=== PATIENT | female | born 1950 | race Caucasian/White ===

== ENCOUNTER 2023-04-07 13:34 | Inpatient (IN) | payer MEDICARE, SELFPAY ==
[2023-04-07] VITALS (23 sets, daily range): BP systolic 97–124; BP diastolic 62–98; PULSE 76–119; RESP 18–20; TEMP 36.4–36.5; O2SAT 86–100; BMI 60.3
--- NOTE | 2023-04-07 14:14 | CRLHL7_ITS ---
For Patients: As a result of the Century Cures Act, medical imaging exams and procedure reports are released immediately into your electronic medical record. You may view this report before your referring provider. If you have questions, please contact your health care provider. Indication: Hypoxia Technique: Chest 1 view Comparison: Chest x-ray 07/14/2019 Findings/Impression: Cardiovascular and mediastinum: Globular cardiomegaly with left-sided pacemaker with lead overlying the expected right ventricle. Atherosclerosis. Lungs and pleural space: Prominence of the pulmonary arteries with bilateral interstitial opacities suggestive of pulmonary edema. Trace retrocardiac density, possibly atelectasis. Trace left effusion not excluded. No pneumothorax. Bones and soft tissues: No acute findings. Dictated by Vern Valdes MD @ 04/07/2023 3:26:05 PM (Electronically Signed)
[2023-04-07 14:45] LABS: Lactate* 1.4 mmol/L (0.5-1.9)
[2023-04-07 14:56] LABS: Basophils Absolute Auto 0.02 K/uL (0.00-0.30); Basophils Percent Auto 0.2 % (0.0-3.0); Eosinophils Absolute Auto 0.15 K/uL (0.00-0.50); Eosinophils Percent Auto 1.5 % (0.0-7.0); Hematocrit 45.9 % (33.0-51.0); Hemoglobin* 14.7 gm/dL (12.0-16.0); Immature Granulocytes Abs Auto 0.02 K/uL (0.00-0.30); Immature Granulocytes Pct Auto 0.2 %; Lymphocytes Percent Auto 11.7 % (20-44); Mean Corpuscular HGB Conc 32 gm/dL (32-36); Mean Corpuscular Hemoglobin 31 pg (26-34); Mean Corpuscular Volume 96 fL (80-100); Monocytes Percent Auto 6.9 % (0.0-11.0); Neutrophils Percent Auto 79.5 % (42.0-72.0); Platelet Count* 272 K/uL (140-440); RDW Coefficient of Variation % 16.5 % (11.5-15.5); Red Blood Count 4.78 m/uL (4.00-5.20); White Blood Count* 9.78 K/uL (4.50-11.00)
[2023-04-07 15:01] LABS: Slide Review Reflex No
[2023-04-07 15:15] LABS: Troponin, Point-of-Care* 0.02 ng/ml (0.01-0.04)
[2023-04-07 15:18] LABS: D Dimer Quantitative* 1.08 ug/ml (0.00-0.50)
[2023-04-07 15:24] LABS: Albumin* 3.8 g/dL (3.3-5.0); Chloride* 102 mmol/L (96-114)
[2023-04-07 15:25] LABS: Potassium* 4.1 mmol/L (3.6-5.1); Sodium* 138 mmol/L (135-149)
[2023-04-07 15:27] LABS: Creatinine* 1.5 mg/dL (0.5-1.5); Estimated Glomerular Filt Rate 37 ml/min
[2023-04-07 15:28] LABS: Alanine Aminotransferase* 14 U/L (4-35); Alkaline Phosphatase* 111 U/L (40-150); Anion Gap 12 mEq/L (7-15); Aspartate Amino Transferase* 27 U/L (12-35); Bilirubin Direct* 0.1 mg/dL (0.0-0.5); Bilirubin Total* 1.1 mg/dL (0.1-1.5); Blood Urea Nitrogen* 23 mg/dL (7-30); Calcium* 8.5 mg/dL (8.4-10.6); Carbon Dioxide* 24 mmol/L (20-32); Glucose* 126 mg/dL (60-115); Total Protein* 7.1 g/dL (6.0-8.3)
[2023-04-07 15:37] LABS: NT Pro B Type NatriureticPept* 2090 pg/mL
[2023-04-07 15:48] LABS: INR 2.07 (0.91-1.10); Prothrombin Time 24.4 Seconds
--- NOTE | 2023-04-07 16:00 | ED_ITS ---
HPI - General Adult General Date Seen: 04/07/23 Chief complaint: Lower Extremity Swelling Stated complaint: Ill Time Seen by Provider: 04/07/23 14:06 Source: patient, EMS, RN notes reviewed and old records reviewed Mode of arrival: EMS Limitations: no limitations History of Present Illness HPI narrative: Patient is a 72-year-old woman who comes in by EMS. She says she called EMS today because of worsening swelling in her legs and severe pain in her feet limiting her ability to get around. She says that she lives independently at a senior apartment. She had for a while a lymphedema service coming in to help wrap her legs and she was keeping them elevated in bed. However, she says that that service is no longer coming as of right now, and her legs have gotten so bad that she was no longer able to lift them into bed because they were so heavy. As a result, she has been sleeping her recliner and putting her feet up that way. However a couple of days ago her recliner broke and she can no longer put the feet up. She does not complain of significant shortness of breath although she was noted to be hypoxic on arrival. She has not had chest pain or fevers. She has not noted any specific redness on her legs although it is difficult for her to see. Related Data Home Medications Medication Instructions Recorded Confirmed acetaminophen 500 mg tablet 1,000 mg PO Q6H PRN 04/07/23 04/07/23 (Tylenol Extra Strength) albuterol sulfate 90 mcg/actuation 2 puff inhalation Q4H PRN dyspnea 04/07/23 04/07/23 aerosol inhaler aspirin 81 mg tablet,delayed 81 mg PO DAILY 04/07/23 04/07/23 release (Adult Aspirin Regimen) atorvastatin 80 mg tablet 80 mg PO HS 04/07/23 04/07/23 bumetanide 1 mg tablet 3 mg PO DAILY 04/07/23 04/07/23 calcium citrate 315 mg-vitamin D3 1 tab PO DAILY 04/07/23 04/07/23 5 mcg (200 unit) tablet (Calcium Citrate + D) cholecalciferol (vitamin D3) 25 25 mcg PO DAILY 04/07/23 04/07/23 mcg (1,000 unit) capsule diltiazem HCl 240 mg 240 mg PO DAILY 04/07/23 04/07/23 capsule,extended release 24 hr empagliflozin 10 mg tablet 10 mg PO DAILY 04/07/23 04/07/23 (Jardiance) gabapentin 300 mg capsule 600 mg PO BID 04/07/23 04/07/23 insulin glargine 100 unit/mL (3 25 unit subcut DAILY 04/07/23 04/07/23 mL) subcutaneous pen (Lantus Solostar U-100 Insulin) metoprolol succinate 200 mg 200 mg PO DAILY 04/07/23 04/07/23 tablet,extended release 24 hr potassium chloride 20 mEq 20 meq PO DAILY 04/07/23 04/07/23 tablet,extended release warfarin 2.5 mg tablet 2.5 mg PO QPM 04/07/23 04/07/23 Allergies Allergy/AdvReac Type Severity Reaction Status Date / Time No Known Drug Allergies Allergy Verified 04/07/23 13:47 Review of Systems Status of ROS: Reports: 10 or more systems reviewed and unremarkable except as noted in History and below [facility] Medical History (Updated 04/12/23 @ 15:17 by Vickei Greenwood MD) Urinary incontinence ?R32 - Unspecified urinary incontinence (ICD-10) Chronic obstructive pulmonary disease ?J44.9 - Chronic obstructive pulmonary disease, unspecified (ICD-10) Physical deconditioning ?R53.81 - Other malaise (ICD-10) Physical debility ?R53.81 - Other malaise (ICD-10) Major depressive disorder ?F32.9 - Major depressive disorder, single episode, unspecified (ICD-10) Diabetic peripheral neuropathy associated with type 2 diabetes mellitus ?E11.42 - Type 2 diabetes mellitus with diabetic polyneuropathy (ICD-10) Chronic kidney disease, stage III (moderate) ?N18.30 - Chronic kidney disease, stage 3 unspecified (ICD-10) Migraine ?G43.909 - Migraine, unspecified, not intractable, without status migrainosus (ICD-10) Vitamin D deficiency ?E55.9 - Vitamin D deficiency, unspecified (ICD-10) History of rectal bleeding ?Z87.19 - Personal history of other diseases of the digestive system (ICD-10) Allergic rhinitis ?J30.9 - Allergic rhinitis, unspecified (ICD-10) Tobacco dependence ?F17.200 - Nicotine dependence, unspecified, uncomplicated (ICD-10) Morbid obesity with BMI of 50.0-59.9, adult ?E66.01 - Morbid (severe) obesity due to excess calories (ICD-10) ?Z68.43 - Body mass index [BMI] 50.0-59.9, adult (ICD-10) Chronic acquired lymphedema ?I89.0 - Lymphedema, not elsewhere classified (ICD-10) Obstructive sleep apnea on CPAP ?G47.33 - Obstructive sleep apnea (adult) (pediatric) (ICD-10) Anticoagulation goal of INR 2 to 3 ?Z51.81 - Encounter for therapeutic drug level monitoring (ICD-10) ?Z79.01 - longterm (current) use of anticoagulants (ICD-10) Chronic anticoagulation ?Z79.01 - extermination supervisor (current) use of anticoagulants (ICD-10) Paroxysmal atrial fibrillation ?I48.0 - Paroxysmal atrial fibrillation (ICD-10) History of tachycardia-bradycardia syndrome ?Z86.79 - Personal history of other diseases of the circulatory system (ICD- 10) Pulmonary hypertension ?I27.20 - Pulmonary hypertension, unspecified (ICD-10) Heart failure with preserved ejection fraction ?I50.30 - Unspecified diastolic (congestive) heart failure (ICD-10) Chronic diastolic heart failure ?I50.32 - Chronic diastolic (congestive) heart failure (ICD-10) Acute hypoxic respiratory failure ?J96.01 - Acute respiratory failure with hypoxia (ICD-10) Insulin-requiring or dependent type II diabetes mellitus ?E11.9 - Type 2 diabetes mellitus without complications (ICD-10) ?Z79.4 - extermination supervisor (current) use of insulin (ICD-10) Surgical History (Updated 04/07/23 @ 20:40 by Joe Diana MD) H/O hernia repair ?Z98.890 - Other specified postprocedural states (ICD-10) ?Z87.19 - Personal history of other diseases of the digestive system (ICD-10) History of total abdominal hysterectomy and bilateral salpingo-oophorectomy ?Z90.710 - Acquired absence of both cervix and uterus (ICD-10) ?Z90.722 - Acquired absence of ovaries, bilateral (ICD-10) ?Z90.79 - Acquired absence of other genital organ(s) (ICD-10) History of total left knee replacement (TKR) ?Z96.652 - Presence of left artificial knee joint (ICD-10) History of total right knee replacement ?Z96.651 - Presence of right artificial knee joint (ICD-10) History of total left hip replacement ?Z96.642 - Presence of left artificial hip joint (ICD-10) History of total right hip replacement ?Z96.641 - Presence of right artificial hip joint (ICD-10) Family History (Updated 04/07/23 @ 20:41 by Joe Diana MD) Mother Cancer Social History (Updated 04/07/23 @ 20:44 by Joe Diana MD) Narrative: Lives alone. Receives extra help and support in her home due to underlying evolving physical debility and physically deconditioned state. Designates her cousin, Heather Walker, as her power of nuclear waste management engineer for health should that be required, . Requests DNR DNI resuscitation status in the event of cardiopulmonary demise. What is your current living situation?: I presently have a place to live Problems where you live: no known problems Problems where you live details: N/A In the past 12 months, utilities in danger of being shut off: no In past 12 months, lack of transportation kept you from medical appts, meetings, work, or getting things needed for daily living: no In the past 12 mos, have been you worried that your food would run out before you had money to buy more?: never true In the past 12 mos, the food you bought just didn't last and you didn't have money to buy more?: never true Highest level of school completed/degree received: some college, no degree Smoking Status: Current every day smoker What tobacco products do you use: cigarettes Smoking packs per day: 1 Smoking cigarettes per day: 20.0 Do you use any of these nicotine containing products: None How often do you have a drink containing alcohol: never How often do you have six or more drinks on one occasion: Never AUDIT-C Alcohol total score: 0 Non-prescribed substance use: denies use Caffeine: Yes How often does anyone, including family, friends and others, physically hurt you : never How often does anyone, including family, friends and others, insult or talk down to you: never How often does anyone, including family, friends and others, threaten you with harm: never How often does anyone, including family, friends and others, scream or curse at you: never service: No Exam Narrative: Exam Narrative: Vital signs as noted above. In general, an alert, nontoxic elderly woman. Head: Normocephalic, atraumatic. Eyes: Pupils are equal reactive. Extraocular movements are full. Conjunctivae are normal. ENT: Mucous membranes are moist. Neck: Supple without lymphadenopathy. Heart: Mildly tachycardic, regular, no clear murmur. Lungs: Coarse crackles noted at the bases left greater than right. No wheezing, no increased work of breathing. Abdomen: Obese and soft, seemingly nontender. Extremities: Her legs are very large, she does have significant edema noted distally, she has some erythema on the medial aspects of both legs where the skin abuts. Difficult to assess pulses, capillary refill is brisk. Neurologic: Patient is alert and oriented to person and place. Speech is fluent. Face is symmetric. Moves all extremities equally. Affect: Normal. Skin: Warm and dry. Well perfused. Const: Vital Signs, click to edit/add: Vital Signs - 24 hr 04/07/23 13:47 04/07/23 13:58 04/07/23 14:00 Temperature 97.6 F Pulse Rate 119 H 92 Pulse Rate [Pulse Oximeter] 116 H Respiratory Rate 20 Blood Pressure Blood Pressure [Le ft Forearm] 119/90 H Pulse Oximetry 90 95 100 Oxygen Delivery Me thod Room Air Nasal Cannula Nasal Cannula Oxygen Flow Rate 1 1 04/07/23 14:01 04/07/23 14:14 04/07/23 14:15 Temperature Pulse Rate 76 94 Pulse Rate [Pulse Oximeter] Respiratory Rate Blood Pressure 123/82 Blood Pressure [Le ft Forearm] Pulse Oximetry 94 93 91 Oxygen Delivery Me thod Nasal Cannula Nasal Cannula Nasal Cannula Oxygen Flow Rate 1 1 1 04/07/23 14:30 04/07/23 14:31 04/07/23 14:45 Temperature Pulse Rate 91 91 107 H Pulse Rate [Pulse Oximeter] Respiratory Rate Blood Pressure 106/62 Blood Pressure [Le ft Forearm] Pulse Oximetry 93 94 95 Oxygen Delivery Me thod Nasal Cannula Nasal Cannula Nasal Cannula Oxygen Flow Rate 1 1 1 04/07/23 15:00 04/07/23 15:01 04/07/23 15:15 Temperature Pulse Rate 97 91 93 Pulse Rate [Pulse Oximeter] Respiratory Rate Blood Pressure 97/68 Blood Pressure [Le ft Forearm] Pulse Oximetry 95 95 95 Oxygen Delivery Me thod Nasal Cannula Nasal Cannula Nasal Cannula Oxygen Flow Rate 1 1 1 Documenting provider has reviewed patient's vital signs: yes Course Course ED Course: Following initial evaluation patient had an EKG which showed a ventricular rate of 97, there is significant artifact it is difficult to tell whether this represents atrial fibrillation or whether she is having frequent PACs. She does have a history of atrial fibrillation and is anticoagulated on warfarin. With regard to her legs considerations include worsening lymphedema, DVT, cellulitis, congestive heart failure, renal failure, among others. Labs are notable for a normal white blood cell count of 9.78, normal hemoglobin. INR was therapeutic at 2, D-dimer was mildly elevated at 1, which is relatively unremarkable given her age, and I think given that she is sufficiently anticoagulated likelihood of DVT is low. Legs are symmetric in size. Metabolic panel was unremarkable, BUN 23 creatinine 1.5. Blood sugar 126. Lactate was normal 1.4. LFTs unremarkable, CRP mildly elevated at 4. BNP was elevated at 2090, TSH was normal. Point of care troponin was 0.02. She had a chest x-ray which shows significant cardiomegaly and I think some pulmonary edema, final radiology read is as follows:Findings/Impression: Cardiovascular and mediastinum: Globular cardiomegaly with left-sided pacemaker with lead overlying the expected right ventricle. Atherosclerosis. Lungs and pleural space: Prominence of the pulmonary arteries with bilateral interstitial opacities suggestive of pulmonary edema. Trace retrocardiac density, possibly atelectasis. Trace left effusion not excluded. No pneumothorax. Bones and soft tissues: No acute findings. Overall, I think that she is showing signs of most likely worsening lymphedema exacerbated bed I inability to elevate her legs and not having help with wrapping them. She is showing some signs of possible congestive failure as well, looking through her records I do not see that she has had a previous echo and she does have significant cardiomegaly. I think she is unlikely to do well going home today, she is minimally able to walk, and without an adequate placed to elevate her legs her legs are likely just get worse. I spoke with Dr. Diana who has accepted her for admission. Patient is agreeable to that. Given Lasix 40 mg IV. Vital Signs Vital signs: Initial Vital Signs Temperature 97.6 F 04/07/23 13:47 Temperature Source Temporal Artery Scan 04/07/23 13:47 Pulse Rate 116 H 04/07/23 13:47 Pulse Rhythm Irregular 04/07/23 13:47 Respiratory Rate 20 04/07/23 13:47 Blood Pressure 119/90 H 04/07/23 13:47 Blood Pressure Mean 99 04/07/23 13:47 Blood Pressure Position Supine 04/07/23 13:47 Pulse Oximetry 90 04/07/23 13:47 Oxygen Delivery Method Room Air 04/07/23 13:47 Vital Signs Temperature 97.6 F 04/07/23 13:47 Pulse Rate 116 H 04/07/23 13:47 Respiratory Rate 20 04/07/23 13:47 Blood Pressure 119/90 H 04/07/23 13:47 Pulse Oximetry 90 04/07/23 13:47 Oxygen Delivery Method Room Air 04/07/23 13:47 Temperature 97.6 F 04/12/23 15:00 Pulse Rate 79 04/12/23 15:00 Respiratory Rate 20 04/12/23 15:00 Blood Pressure 128/74 04/12/23 15:00 Pulse Oximetry 90 04/12/23 15:00 Oxygen Delivery Method Room Air 04/12/23 15:00 Oxygen Flow Rate 1 04/11/23 15:00 Medical Decision Making Lab Data Labs: Lab Results 04/07/23 04/08/23 04/09/23 Range/Units 14:40 05:55 05:50 WBC 9.78 6.95 (4.50-11.00) K/uL RBC 4.78 4.78 (4.00-5.20) m/uL Hgb 14.7 14.3 (12.0-16.0) gm/dL Hct 45.9 46.5 (33.0-51.0) % MCV 96 97 (80-100) fL MCH 31 30 (26-34) pg MCHC 32 31 L (32-36) gm/dL RDW Coeff of Aby 16.5 H (11.5-15.5) % Plt Count 272 231 (140-440) K/uL Neut % (Auto) 79.5 H (42.0-72.0) % Lymph % (Auto) 11.7 L (20-44) % [place] % (Auto) 6.9 (0.0-11.0) % Eos % (Auto) 1.5 (0.0-7.0) % Baso % (Auto) 0.2 (0.0-3.0) % Neut # (Auto) 7.80 H (1.7-7.0) K/uL Lymph # (Auto) 1.10 (0.90-2.90) K/uL [place] # (Auto) 0.70 (0.00-0.90) K/UL Eos # (Auto) 0.15 (0.00-0.50) K/uL Baso # (Auto) 0.02 (0.00-0.30) K/uL Abs Immat Gran (auto) 0.02 (0.00-0.30) K/uL Imm/Tot Granulo (auto) 0.2 % INR 2.07 H 2.30 H 2.14 H (0.91-1.10) D-Dimer Quant (PE/DVT) 1.08 H (0.00-0.50) ug/ml VBG pH 7.352 7.415 (7.32-7.43) VBG pCO2 55 H 54 H (40-50) mmHG VBG pO2 29.1 43.5 (25-47) mmHG VBG HCO3 30 H 35 H (21-28) mmol/L Sodium 138 139 138 (135-149) mmol/L Potassium 4.1 4.2 3.8 (3.6-5.1) mmol/L Chloride 102 104 102 (96-114) mmol/L Carbon Dioxide 24 28 31 (20-32) mmol/L Anion Gap 12 7 5 L (7-15) mEq/L BUN 23 23 24 (7-30) mg/dL Creatinine 1.5 1.4 1.3 (0.5-1.5) mg/dL Estimated Creat Clear 34.00 36.62 Estimated GFR 37 40 44 ml/min Glucose 126 H 125 H 119 H (60-115) mg/dL Lactate 1.4 1.3 (0.5-1.9) mmol/L Calcium 8.5 8.1 L 7.8 L (8.4-10.6) mg/dL Ionized Calcium [place] 1.00 L (1.11-1.30) mmol/L Phosphorus 5.0 H (2.5-4.5) mg/dL Magnesium 1.5 (1.5-2.6) mg/dL Total Bilirubin 1.1 (0.1-1.5) mg/dL Direct Bilirubin 0.1 (0.0-0.5) mg/dL AST 27 (12-35) U/L ALT 14 (4-35) U/L Alkaline Phosphatase 111 (40-150) U/L C-Reactive Protein 4.0 H 4.8 H (0.5-1.0) mg/dL NT-Pro-B Natriuret Pep 2090 3220 pg/mL Total Protein 7.1 (6.0-8.3) g/dL Albumin 3.8 (3.3-5.0) g/dL TSH 2.030 (0.270-4.200) uIU/mL POC Troponin I 0.02 (0.01-0.04) ng/ml Discharge Plan Discharge Patient Disposition: Admitted As Inpatient
[2023-04-07] MEDS: FUROSEMIDE 10 MG/ML inj 40 MG IVP (16:20)
--- NOTE | 2023-04-07 16:36 | ED.NURSE ---
Pt report given off to WhoSaymiguel KRISHNAN
--- NOTE | 2023-04-07 20:45 | PM.IMHP1 ---
Hospitalist- H&P: HPI History of Present Illness Time Seen by Provider: 20:00 Date Seen: 04/07/23 Chief complaint: Unable to care for herself in her home Narrative: Sydnie Parkinson is a 72 year old woman presents to the [facility] Emergency Department via EMS due to concerns of increasing bilateral lower extremity swelling with inability to for her to care for herself safely at home. Lives alone and independently in her senior apartment. Intermittently receives help from home health care services. Home care physical therapist visited her today and urged her to go to the emergency department for further assessment given her inability to take care of herself in her home and worsening bilateral lower extremity edema. Legs are so edematous and heavy she literally is unable to lift them up onto her bed. This is not new. She has been able to get around this by sleeping in her recliner with legs elevated. About 5 days ago her recliner broke. Her feet have been in the dependent position since then. The edema has become markedly worse since then. Denies fevers, rigors, diaphoresis. Denies dyspnea, cough, angina, syncope, nausea, vomiting, palpitations. Has continued to take her medications as best she could. Has had urinary incontinence for some time. Has been unable to get to the bathroom. Has been rolling up a tall and placing it in her perineum to catch her urine. She is not able to discern when she needs to urinate. Does not perform perineal cares. Review of Systems Status of ROS: Reports: 10 or more systems reviewed and unremarkable except as noted in History and below Narrative: Unable to care for herself in her home. Hardly able to move. Over the course of last 5 days the pain in her feet have intensified in conjunction with the edema in her feet. Does take gabapentin for peripheral neuropathic pain. States she was still monitoring her blood sugars and that these have been running in the 110-140 range at home. Few weeks ago she was hospitalized with hypoglycemia, and concurrently had a urinary tract infection. Presently denies dysuria, urgency, frequency, hematuria. Again she has urinary incontinence and is unaware of it. Denies diarrhea or constipation. [facility] Medical History (Updated 04/07/23 @ 21:12 by Joe Diana MD) Urinary incontinence ?R32 - Unspecified urinary incontinence (ICD-10) Chronic obstructive pulmonary disease ?J44.9 - Chronic obstructive pulmonary disease, unspecified (ICD-10) Physical deconditioning ?R53.81 - Other malaise (ICD-10) Physical debility ?R53.81 - Other malaise (ICD-10) Major depressive disorder ?F32.9 - Major depressive disorder, single episode, unspecified (ICD-10) Diabetic peripheral neuropathy associated with type 2 diabetes mellitus ?E11.42 - Type 2 diabetes mellitus with diabetic polyneuropathy (ICD-10) Chronic kidney disease, stage III (moderate) ?N18.30 - Chronic kidney disease, stage 3 unspecified (ICD-10) Migraine ?G43.909 - Migraine, unspecified, not intractable, without status migrainosus (ICD-10) Vitamin D deficiency ?E55.9 - Vitamin D deficiency, unspecified (ICD-10) History of rectal bleeding ?Z87.19 - Personal history of other diseases of the digestive system (ICD-10) Allergic rhinitis ?J30.9 - Allergic rhinitis, unspecified (ICD-10) Tobacco dependence ?F17.200 - Nicotine dependence, unspecified, uncomplicated (ICD-10) Morbid obesity with BMI of 50.0-59.9, adult ?E66.01 - Morbid (severe) obesity due to excess calories (ICD-10) ?Z68.43 - Body mass index [BMI] 50.0-59.9, adult (ICD-10) Chronic acquired lymphedema ?I89.0 - Lymphedema, not elsewhere classified (ICD-10) Obstructive sleep apnea on CPAP ?G47.33 - Obstructive sleep apnea (adult) (pediatric) (ICD-10) Anticoagulation goal of INR 2 to 3 ?Z51.81 - Encounter for therapeutic drug level monitoring (ICD-10) ?Z79.01 - long term care social worker (current) use of anticoagulants (ICD-10) Chronic anticoagulation ?Z79.01 - long term care social worker (current) use of anticoagulants (ICD-10) Paroxysmal atrial fibrillation ?I48.0 - Paroxysmal atrial fibrillation (ICD-10) History of tachycardia-bradycardia syndrome ?Z86.79 - Personal history of other diseases of the circulatory system (ICD-10) Pulmonary hypertension ?I27.20 - Pulmonary hypertension, unspecified (ICD-10) Heart failure with preserved ejection fraction ?I50.30 - Unspecified diastolic (congestive) heart failure (ICD-10) Chronic diastolic heart failure ?I50.32 - Chronic diastolic (congestive) heart failure (ICD-10) Acute hypoxic respiratory failure ?J96.01 - Acute respiratory failure with hypoxia (ICD-10) Insulin-requiring or dependent type II diabetes mellitus ?E11.9 - Type 2 diabetes mellitus without complications (ICD-10) ?Z79.4 - long term care social worker (current) use of insulin (ICD-10) Surgical History (Updated 04/07/23 @ 20:40 by Joe Diana MD) H/O hernia repair ?Z98.890 - Other specified postprocedural states (ICD-10) ?Z87.19 - Personal history of other diseases of the digestive system (ICD-10) History of total abdominal hysterectomy and bilateral salpingo-oophorectomy ?Z90.710 - Acquired absence of both cervix and uterus (ICD-10) ?Z90.722 - Acquired absence of ovaries, bilateral (ICD-10) ?Z90.79 - Acquired absence of other genital organ(s) (ICD-10) History of total left knee replacement (TKR) ?Z96.652 - Presence of left artificial knee joint (ICD-10) History of total right knee replacement ?Z96.651 - Presence of right artificial knee joint (ICD-10) History of total left hip replacement ?Z96.642 - Presence of left artificial hip joint (ICD-10) History of total right hip replacement ?Z96.641 - Presence of right artificial hip joint (ICD-10) Family History (Updated 04/07/23 @ 20:41 by Joe Diana MD) Mother Cancer Social History (Updated 04/07/23 @ 20:44 by Joe Diana MD) Narrative: Lives alone. Receives extra help and support in her home due to underlying evolving physical debility and physically deconditioned state. Designates her cousin, Heather Walker, as her power of state's attorney for health should that be required, . Requests DNR DNI resuscitation status in the event of cardiopulmonary demise. What is your current living situation?: I presently have a place to live Problems where you live: no known problems Problems where you live details: N/A In the past 12 months, utilities in danger of being shut off: no In past 12 months, lack of transportation kept you from medical appts, meetings, work, or getting things needed for daily living: no In the past 12 mos, have been you worried that your food would run out before you had money to buy more?: never true In the past 12 mos, the food you bought just didn't last and you didn't have money to buy more?: never true Highest level of school completed/degree received: some college, no degree Smoking Status: Current every day smoker What tobacco products do you use: cigarettes Smoking packs per day: 1 Smoking cigarettes per day: 20.0 Do you use any of these nicotine containing products: None How often do you have a drink containing alcohol: never How often do you have six or more drinks on one occasion: Never AUDIT-C Alcohol total score: 0 Non-prescribed substance use: denies use Caffeine: Yes How often does anyone, including family, friends and others, physically hurt you: never How often does anyone, including family, friends and others, insult or talk down to you: never How often does anyone, including family, friends and others, threaten you with harm: never How often does anyone, including family, friends and others, scream or curse at you: never service: No Meds Home Medications and Allergies Home Medications Medication Instructions Recorded Confirmed Type acetaminophen 500 mg tablet 1,000 mg PO Q6H PRN 04/07/23 04/07/23 History (Tylenol Extra Strength) albuterol sulfate 90 mcg/actuation 2 puff inhalation Q4H PRN dyspnea 04/07/23 04/07/23 History aerosol inhaler aspirin 81 mg tablet,delayed 81 mg PO DAILY 04/07/23 04/07/23 History release (Adult Aspirin Regimen) atorvastatin 80 mg tablet 80 mg PO HS 04/07/23 04/07/23 History bumetanide 1 mg tablet 3 mg PO DAILY 04/07/23 04/07/23 History calcium citrate 315 mg-vitamin D3 1 tab PO DAILY 04/07/23 04/07/23 History 5 mcg (200 unit) tablet (Calcium Citrate + D) cholecalciferol (vitamin D3) 25 25 mcg PO DAILY 04/07/23 04/07/23 History mcg (1,000 unit) capsule diltiazem HCl 240 mg 240 mg PO DAILY 04/07/23 04/07/23 History capsule,extended release 24 hr empagliflozin 10 mg tablet 10 mg PO DAILY 04/07/23 04/07/23 History (Jardiance) gabapentin 300 mg capsule 600 mg PO BID 04/07/23 04/07/23 History insulin glargine 100 unit/mL (3 25 unit subcut DAILY 04/07/23 04/07/23 History mL) subcutaneous pen (Lantus Solostar U-100 Insulin) metoprolol succinate 200 mg 200 mg PO DAILY 04/07/23 04/07/23 History tablet,extended release 24 hr potassium chloride 20 mEq 20 meq PO DAILY 04/07/23 04/07/23 History tablet,extended release warfarin 2.5 mg tablet 2.5 mg PO QPM 04/07/23 04/07/23 History Allergies Allergy/AdvReac Type Severity Reaction Status Date / Time No Known Drug Allergies Allergy Verified 04/07/23 13:47 Exam Narrative: Exam Narrative: Examine her in her hospital room. Appears comfortable and in no acute distress. Laying in her bed with head of bed elevated about 15?. Nasal cannula oxygen being delivered. Vision and hearing are grossly normal. Alert and oriented to self, place, time, situation. Friendly, articulate, cooperative. Gracious. Obese. No icterus or conjunctival injection. Pupils equally round reactive to light and accommodation. Conjugate gaze. Extraocular muscles are intact. Midline nasal septum. Buccal mucosa is moist with dentition in fair repair. Full neck. Neck is supple. Midline trachea. No obvious JVD or hepatojugular reflux. No carotid bruits. No head and neck lymphadenopathy. Lungs with bibasilar end inspiratory rales, without wheezing or rhonchi. Chest wall excursions are full. No CVA tenderness. Regular heart rate and rhythm. Normal S1-S2. No obvious murmur, gallop, rub. PMI not laterally displaced. Abdomen is obese. Active bowel sounds. Soft and nontender. Bilateral lower extremity lymphedema up to her thighs. No acute inflammatory changes. No weeping. Unable to lift her legs up off the bed tonight. Strength testing in ankles and knees are adequate. East dermatitis underneath her breasts and under her pannus and in her groin. Has incontinence associated dermatitis in her groin as well. No focal motor neurologic deficits. Const: Vital Signs, click to edit/add: Vital Signs - 24 hr 04/07/23 13:47 04/07/23 13:58 04/07/23 14:00 Temperature 97.6 F Pulse Rate 119 H 92 Pulse Rate [Pulse Oximeter] 116 H Pulse Rate [Right Pulse Oximeter] Respiratory Rate 20 Blood Pressure Blood Pressure [Le ft Arm] Blood Pressure [Le ft Forearm] 119/90 H Pulse Oximetry 90 95 100 Oxygen Delivery Me thod Room Air Nasal Cannula Nasal Cannula Oxygen Flow Rate 1 1 04/07/23 14:01 04/07/23 14:14 04/07/23 14:15 Temperature Pulse Rate 76 94 Pulse Rate [Pulse Oximeter] Pulse Rate [Right Pulse Oximeter] Respiratory Rate Blood Pressure 123/82 Blood Pressure [Le ft Arm] Blood Pressure [Le ft Forearm] Pulse Oximetry 94 93 91 Oxygen Delivery Me thod Nasal Cannula Nasal Cannula Nasal Cannula Oxygen Flow Rate 1 1 1 04/07/23 14:30 04/07/23 14:31 04/07/23 14:45 Temperature Pulse Rate 91 91 107 H Pulse Rate [Pulse Oximeter] Pulse Rate [Right Pulse Oximeter] Respiratory Rate Blood Pressure 106/62 Blood Pressure [Le ft Arm] Blood Pressure [Le ft Forearm] Pulse Oximetry 93 94 95 Oxygen Delivery Me thod Nasal Cannula Nasal Cannula Nasal Cannula Oxygen Flow Rate 1 1 1 04/07/23 15:00 04/07/23 15:01 04/07/23 15:15 Temperature Pulse Rate 97 91 93 Pulse Rate [Pulse Oximeter] Pulse Rate [Right Pulse Oximeter] Respiratory Rate Blood Pressure 97/68 Blood Pressure [Le ft Arm] Blood Pressure [Le ft Forearm] Pulse Oximetry 95 95 95 Oxygen Delivery Me thod Nasal Cannula Nasal Cannula Nasal Cannula Oxygen Flow Rate 1 1 1 04/07/23 15:30 04/07/23 15:31 04/07/23 15:45 Temperature Pulse Rate 91 104 H 89 Pulse Rate [Pulse Oximeter] Pulse Rate [Right Pulse Oximeter] Respiratory Rate Blood Pressure 111/83 Blood Pressure [Le ft Arm] Blood Pressure [Le ft Forearm] Pulse Oximetry 95 94 93 Oxygen Delivery Me thod Nasal Cannula Nasal Cannula Nasal Cannula Oxygen Flow Rate 1 1 1 04/07/23 16:00 04/07/23 16:01 04/07/23 16:15 Temperature Pulse Rate 93 95 86 Pulse Rate [Pulse Oximeter] Pulse Rate [Right Pulse Oximeter] Respiratory Rate Blood Pressure 115/67 Blood Pressure [Le ft Arm] Blood Pressure [Le ft Forearm] Pulse Oximetry 86 L 92 91 Oxygen Delivery Me thod Nasal Cannula Nasal Cannula Nasal Cannula Oxygen Flow Rate 1 1 1 04/07/23 16:30 04/07/23 16:31 04/07/23 16:45 Temperature Pulse Rate 88 82 95 Pulse Rate [Pulse Oximeter] Pulse Rate [Right Pulse Oximeter] Respiratory Rate Blood Pressure 112/98 H Blood Pressure [Le ft Arm] Blood Pressure [Le ft Forearm] Pulse Oximetry 95 93 93 Oxygen Delivery Me thod Nasal Cannula Nasal Cannula Nasal Cannula Oxygen Flow Rate 1 1 1 04/07/23 17:53 Temperature 97.7 F Pulse Rate Pulse Rate [Pulse Oximeter] Pulse Rate [Right Pulse Oximeter] 96 Respiratory Rate 18 Blood Pressure Blood Pressure [Le ft Arm] 110/85 Blood Pressure [Le ft Forearm] Pulse Oximetry 92 Oxygen Delivery Me thod Nasal Cannula Oxygen Flow Rate 1 Documenting provider has reviewed patient's vital signs: yes Hospitalist - H&P: Result Labs Labs: Short CBC 04/07/23 Range/Units 14:40 WBC 9.78 (4.50-11.00) K/uL Hgb 14.7 (12.0-16.0) gm/dL Hct 45.9 (33.0-51.0) % Plt Count 272 (140-440) K/uL BMP 04/07/23 14:40 Sodium 138 Potassium 4.1 Chloride 102 Carbon Dioxide 24 BUN 23 Creatinine 1.5 Glucose 126 H Calcium 8.5 Liver Function 04/07/23 Range/Units 14:40 Total Bilirubin 1.1 (0.1-1.5) mg/dL Direct Bilirubin 0.1 (0.0-0.5) mg/dL AST 27 (12-35) U/L ALT 14 (4-35) U/L Alkaline Phosphatase 111 (40-150) U/L Albumin 3.8 (3.3-5.0) g/dL Imaging Chest x-ray: Attestation: I have reviewed the pertinent imaging results. Radiologist's impression: Findings/Impression: Cardiovascular and mediastinum: Globular cardiomegaly with left-sided pacemaker with lead overlying the expected right ventricle. Atherosclerosis. Lungs and pleural space: Prominence of the pulmonary arteries with bilateral interstitial opacities suggestive of pulmonary edema. Trace retrocardiac density, possibly atelectasis. Trace left effusion not excluded. No pneumothorax. Bones and soft tissues: No acute findings. Assessment and Plan Assessment and plan (1) Chronic acquired lymphedema: Problem comment: - Utilizes lymphedema leg pumps twice daily at home. - Requires lymphedema wraps with support from home care services from time to time. - 04/07/2023: Acutely worse due to broken recliner chair and inability to elevate her legs for the past 5 days; recliner chair was fixed on 04/07/2023 before she came into the hospital for assessment. Status: Acute (2) Acute hypoxic respiratory failure: Problem comment: - Due to pulmonary edema and underlying acute on chronic diastolic heart failure, January 2023 - 04/07/2023: Likely related to underlying chronic obstructive pulmonary disease, pulmonary hypertension, and chronic diastolic heart failure with preserved ejection fraction. - 04/07/2023: Chest x-ray demonstrates: Cardiovascular and mediastinum: Globular cardiomegaly with left-sided pacemaker with lead overlying the expected right ventricle. Atherosclerosis. Lungs and pleural space: Prominence of the pulmonary arteries with bilateral interstitial opacities suggestive of pulmonary edema. Trace retrocardiac density, possibly atelectasis. Trace left effusion not excluded. No pneumothorax. - oxygen supplementation - Forde catheter insertion for I&O and skin protection due to yeast dermatitis in perineum Status: Acute (3) Pulmonary hypertension: Problem comment: - Transthoracic echocardiogram 02/11/2023: 1. Normal LV size, thickness. EF 55-60%. No regional wall motion abnormalities. 2. RV normal size. 3. Moderate to severe biatrial enlargement. 4. Trace tricuspid regurgitation. Elevated right ventricular systolic pressure consistent with severe pulmonary hypertension. 5. Findings similar to previous echocardiogram on 06/21/2022. - 04/07/2023: double dose of bumetanide from 3 mg once daily to 3 mg twice daily for now, and monitor laboratory studies Status: Acute (4) Chronic diastolic heart failure: Problem comment: - Transthoracic echocardiogram 02/11/2023: 1. Normal LV size, thickness. EF 55-60%. No regional wall motion abnormalities. 2. RV normal size. 3. Moderate to severe biatrial enlargement. 4. Trace tricuspid regurgitation. Elevated right ventricular systolic pressure consistent with severe pulmonary hypertension. 5. Findings similar to previous echocardiogram on 06/21/2022. - 04/07/2023: monitor weights daily. - no need to repeat echocardiogram presently. Status: Acute (5) Insulin-requiring or dependent type II diabetes mellitus: Problem comment: - 04/07/2023: EGFR 37 consistent with chronic kidney disease stage IIIB - hold metformin, continue with glimepiride, decreased dose of glargine insulin from 25 units at at bedtime down to 15 units at at bedtime, and institute aspart insulin sliding scale Status: Acute (6) Diabetic peripheral neuropathy associated with type 2 diabetes mellitus: Problem comment: - due to decreased creatinine clearance, will decrease dose of gabapentin to 300 mg twice daily Status: Acute (7) Failure to thrive in adult: Problem comment: - 04/07/2023: Will have PT and OT assess and assist with recommendations. Will also have social media sr strategy manager to assist with discharge disposition planning. Status: Acute (8) Physical debility: Status: Acute (9) Physical deconditioning: Status: Acute (10) Chronic kidney disease, stage III (moderate): Problem comment: - 04/07/2023: monitor labs closely as we intervene Status: Acute (11) Yeast dermatitis: Problem comment: - 04/07/2023: In intertriginous folds - 1:1 compound of clotrimazole 1% and triamcinolone 0.1% creams applied twice daily to affected areas - temporary Forde catheter to protect the skin in the perineum that is affected by the yeast dermatitis as well as incontinence associated dermatitis Status: Acute (12) Urinary incontinence: Problem comment: - 04/07/2023: given the incontinence associated dermatitis and yeast dermatitis in the perineum, will need temporary placement of Forde catheter. - will need to consider safe, long-term treatment plan given her debility and already demonstrated inability to care for herself in this way. Status: Acute (13) Incontinence associated dermatitis: Problem comment: - secondary to chronic urinary incontinence and inability for her to care for herself Status: Acute Plan 1. Reviewed impression with patient. Answered her questions. 2. Reviewed with her plans as specified above, she is agreeable. 3. Admit for observation for now.
[2023-04-07] MEDS: ATORVASTATIN CALCIUM 40 MG TABLET 80 MG PO (20:56)
[2023-04-07] MEDS: TRIAMCINOLONE ACETONIDE CREAM 0.1 % 1 APPLIC TOPICAL (20:57)
[2023-04-07] MEDS: WARFARIN 2.5 MG TABLET PO (20:57)
[2023-04-07] MEDS: ACETAMINOPHEN 500 MG TABLET 1000 MG PO (20:57)
[2023-04-07] MEDS: GABAPENTIN 300 MG CAPSULE 600 MG PO (20:57)
[2023-04-07] MEDS: SODIUM CHLORIDE 0.9 % (FLUSH) 10 ML SYRINGE 5 ML IVF (20:58)
[2023-04-07] MEDS: CLOTRIMAZOLE 1 % CREAM 1 APPLIC TOPICAL (20:58)
[2023-04-07] MEDS: lidocaine HCL 2 % JELLY (TOP) STERILE 6 ML TOPICAL (21:53)
--- NOTE | 2023-04-07 23:56 | PC.NURSE ---
End of Shift: Patient admitted to 251. Pleasant and cooperative. Afebrile. C/o pain in lower extremities with movement. PRN Tylenol x1. Incontinent of urine. Abdominal folds, groin, under breasts and bottom reddened. Cleansed x2 and cream applied as ordered. Forde inserted. Patient tolerating regular diet with no nausea. Turn and reposition in bed. O2 sats decrease to 85% on room air, 1L to keep sats greater than 88%.
[2023-04-08] VITALS (9 sets, daily range): BP systolic 104–133; BP diastolic 58–76; PULSE 76–98; RESP 16–20; TEMP 36–36.7; O2SAT 86–89; BMI 58.4
[2023-04-08] MEDS: NICOTINE 21 MG PATCH 1 PATCH TRANSDERMA (00:45)
[2023-04-08 06:30] LABS: HCO3 VBG 30 mmol/L (21-28); Lactate* 1.3 mmol/L (0.5-1.9); PCO2 VBG 55 mmHG (40-50); PO2 VBG 29.1 mmHG (25-47); pH VBG 7.352 (7.32-7.43)
[2023-04-08 06:38] LABS: Hematocrit 46.5 % (33.0-51.0); Hemoglobin* 14.3 gm/dL (12.0-16.0); Mean Corpuscular HGB Conc 31 gm/dL (32-36); Mean Corpuscular Hemoglobin 30 pg (26-34); Mean Corpuscular Volume 97 fL (80-100); Platelet Count* 231 K/uL (140-440); Red Blood Count 4.78 m/uL (4.00-5.20); White Blood Count* 6.95 K/uL (4.50-11.00)
[2023-04-08 07:14] LABS: Chloride* 104 mmol/L (96-114); Potassium* 4.2 mmol/L (3.6-5.1); Sodium* 139 mmol/L (135-149)
[2023-04-08 07:16] LABS: Slide Review Reflex No
[2023-04-08 07:17] LABS: Anion Gap 7 mEq/L (7-15); Blood Urea Nitrogen* 23 mg/dL (7-30); Carbon Dioxide* 28 mmol/L (20-32); Creatinine* 1.4 mg/dL (0.5-1.5); Estimated Glomerular Filt Rate 40 ml/min
[2023-04-08 07:18] LABS: Calcium* 8.1 mg/dL (8.4-10.6); Glucose* 125 mg/dL (60-115); Magnesium* 1.5 mg/dL (1.5-2.6)
[2023-04-08 07:20] LABS: C Reactive Protein* 4.8 mg/dL (0.5-1.0)
[2023-04-08 07:29] LABS: NT Pro B Type NatriureticPept* 3220 pg/mL
--- NOTE | 2023-04-08 07:41 | PC.NURSE ---
END OF SHIFT NOTE: Pt slept well throughout shift. Hx of IRENA - home CPAP used during HS. Nicotine patch placed on left shoulder. skin areas of concern abd folds, groin, under breasts. denies CP, SOB, N/V. Pt did not ambulate this shift, T&R with pillows for offloading. VSS ON RA with CPAP used; AFEBRILE. BLE edema. Forde in place, patent and draining light suzanna urine. BED ALARM ON AND CALL LIGHT WITHIN PT?S REACH.?
[2023-04-08 07:46] LABS: Prothrombin Time 26.4 Seconds
[2023-04-08] MEDS: TRIAMCINOLONE ACETONIDE CREAM 0.1 % 1 APPLIC TOPICAL (08:30)
[2023-04-08] MEDS: CLOTRIMAZOLE 1 % CREAM 1 APPLIC TOPICAL (08:30)
[2023-04-08] MEDS: ASPIRIN 81 MG TABLET EC PO (09:36)
[2023-04-08] MEDS: BUMETANIDE 1 MG TABLET 3 MG PO ×2 (09:37→20:46)
[2023-04-08] MEDS: dilTIAZem 240 MG CAP (CD) PO (09:37)
[2023-04-08] MEDS: GABAPENTIN 300 MG CAPSULE PO ×2 (09:38→20:46)
[2023-04-08] MEDS: EMPAGLIFLOZIN 10 MG TABLET PO (09:38)
[2023-04-08] MEDS: POTASSIUM CHLORIDE 10 MEQ CAPSULE ER 20 MEQ PO (09:39)
[2023-04-08] MEDS: METOPROLOL SUCCINATE (XL) 100 MG TAB 200 MG PO (09:39)
--- NOTE | 2023-04-08 10:02 | PC.NURSE ---
RN NOTIFIED PRECEPTOR AT THIS TIME 20G IV TO R AC WAS NOTED TO HAVE RESISTANCE AND WOULD THEREFORE NOT FLUSH. RN WAS ADVISED TO REMOVE IV. CATHETER NOTED TO BE INTACT.
--- NOTE | 2023-04-08 10:43 | P.IMPN_ITS ---
Progress Note: A&P Assessment and plan (1) Chronic acquired lymphedema: Problem details: - Utilizes lymphedema leg pumps twice daily at home. - Requires lymphedema wraps with support from home care services from time to time. - 04/07/2023: Acutely worse due to broken recliner chair and inability to elevate her legs for the past 5 days; recliner chair was fixed on 04/07/2023 before she came into the hospital for assessment. -04/08/23: Stable Status: Acute (2) Acute hypoxic respiratory failure: Problem details: - 04/08/23: Resolved, patient tolerating room air Due to pulmonary edema and underlying acute on chronic diastolic heart failure, January 2023 - Donald catheter insertion for I&O and skin protection due to yeast dermatitis in perineum Status: Acute (3) Pulmonary hypertension: Problem details: - Transthoracic echocardiogram 02/11/2023: 1. Normal LV size, thickness. EF 55-60%. No regional wall motion abnormalities. 2. RV normal size. 3. Moderate to severe biatrial enlargement. 4. Trace tricuspid regurgitation. Elevated right ventricular systolic pressure consistent with severe pulmonary hypertension. 5. Findings similar to previous echocardiogram on 06/21/2022. - 04/07/2023: double dose of bumetanide from 3 mg once daily to 3 mg twice daily for now, and monitor laboratory studies -04/08/23: Diuresing well, continue bumex 3mg BID Status: Acute (4) Cardiorenal syndrome: Problem details: Possible cardiorenal. Creatinine improving with diuresis Status: Acute (5) Chronic diastolic heart failure: Problem details: Noted. Status: Acute (6) Insulin-requiring or dependent type II diabetes mellitus: Problem details: Glucose is well controlled Continue present management with lower dose glargine, glimeperide and SSI Status: Acute (7) Diabetic peripheral neuropathy associated with type 2 diabetes mellitus: Problem details: - due to decreased creatinine clearance, will decrease dose of gabapentin to 300 mg twice daily Status: Acute (8) Failure to thrive in adult: Problem details: - 04/07/2023: Will have PT and OT assess and assist with recommendations. Will also have social insurance administrator to assist with discharge disposition planning. Status: Acute (9) Physical debility: Status: Acute (10) Physical deconditioning: Status: Acute (11) Chronic kidney disease, stage III (moderate): Problem details: - 04/07/2023: monitor labs closely as we intervene -04/08/23: Suspect a component of cardiorenal- improving with diuresis Status: Acute (12) Yeast dermatitis: Problem details: - 04/07/2023: In intertriginous folds - 1:1 compound of clotrimazole 1% and triamcinolone 0.1% creams applied twice daily to affected areas - temporary Donald catheter to protect the skin in the perineum that is affected by the yeast dermatitis as well as incontinence associated dermatitis, continue for now but plan for voiding trial prior to discharge Status: Acute (13) Urinary incontinence: Problem details: - 04/07/2023: given the incontinence associated dermatitis and yeast dermatitis in the perineum, will need temporary placement of Donald catheter. - will need to consider safe, long-term treatment plan given her debility and already demonstrated inability to care for herself in this way. Status: Acute (14) Incontinence associated dermatitis: Problem details: - secondary to chronic urinary incontinence and inability for her to care for herself Status: Acute Subjective Date Seen: 04/08/23 Interval history: Subjective: Patient is seen and examined. She is feeling a little better, slept well overnight. No new concerns. Wants to keep donald for now. Objective: General- Well appearing, no distress, morbidly obese HEENT- NCAT, MMM CV: IRR, no murmur Resp: CTAB, breathing is comfortable. Extremities: 1-2+ MARILU to at least the knees Neuro: Awake, alert, no lateralizing deficits. Exam Const: Vital Signs, click to edit/add: Vital Signs - 24 hr 04/07/23 13:47 04/07/23 13:58 04/07/23 14:00 Temperature 97.6 F Pulse Rate 119 H 92 Pulse Rate [Pulse Oximeter] 116 H Pulse Rate [Right Pulse Oximeter] Respiratory Rate 20 Blood Pressure Blood Pressure [Le ft Arm] Blood Pressure [Le ft Forearm] 119/90 H Pulse Oximetry 90 95 100 Oxygen Delivery Me thod Room Air Nasal Cannula Nasal Cannula Oxygen Flow Rate 1 1 04/07/23 14:01 04/07/23 14:14 04/07/23 14:15 Temperature Pulse Rate 76 94 Pulse Rate [Pulse Oximeter] Pulse Rate [Right Pulse Oximeter] Respiratory Rate Blood Pressure 123/82 Blood Pressure [Le ft Arm] Blood Pressure [Le ft Forearm] Pulse Oximetry 94 93 91 Oxygen Delivery Me thod Nasal Cannula Nasal Cannula Nasal Cannula Oxygen Flow Rate 1 1 1 04/07/23 14:30 04/07/23 14:31 04/07/23 14:45 Temperature Pulse Rate 91 91 107 H Pulse Rate [Pulse Oximeter] Pulse Rate [Right Pulse Oximeter] Respiratory Rate Blood Pressure 106/62 Blood Pressure [Le ft Arm] Blood Pressure [Le ft Forearm] Pulse Oximetry 93 94 95 Oxygen Delivery Me thod Nasal Cannula Nasal Cannula Nasal Cannula Oxygen Flow Rate 1 1 1 04/07/23 15:00 04/07/23 15:01 04/07/23 15:15 Temperature Pulse Rate 97 91 93 Pulse Rate [Pulse Oximeter] Pulse Rate [Right Pulse Oximeter] Respiratory Rate Blood Pressure 97/68 Blood Pressure [Le ft Arm] Blood Pressure [Le ft Forearm] Pulse Oximetry 95 95 95 Oxygen Delivery Me thod Nasal Cannula Nasal Cannula Nasal Cannula Oxygen Flow Rate 1 1 1 04/07/23 15:30 04/07/23 15:31 04/07/23 15:45 Temperature Pulse Rate 91 104 H 89 Pulse Rate [Pulse Oximeter] Pulse Rate [Right Pulse Oximeter] Respiratory Rate Blood Pressure 111/83 Blood Pressure [Le ft Arm] Blood Pressure [Le ft Forearm] Pulse Oximetry 95 94 93 Oxygen Delivery Me thod Nasal Cannula Nasal Cannula Nasal Cannula Oxygen Flow Rate 1 1 1 04/07/23 16:00 04/07/23 16:01 04/07/23 16:15 Temperature Pulse Rate 93 95 86 Pulse Rate [Pulse Oximeter] Pulse Rate [Right Pulse Oximeter] Respiratory Rate Blood Pressure 115/67 Blood Pressure [Le ft Arm] Blood Pressure [Le ft Forearm] Pulse Oximetry 86 L 92 91 Oxygen Delivery Me thod Nasal Cannula Nasal Cannula Nasal Cannula Oxygen Flow Rate 1 1 1 04/07/23 16:30 04/07/23 16:31 04/07/23 16:45 Temperature Pulse Rate 88 82 95 Pulse Rate [Pulse Oximeter] Pulse Rate [Right Pulse Oximeter] Respiratory Rate Blood Pressure 112/98 H Blood Pressure [Le ft Arm] Blood Pressure [Le ft Forearm] Pulse Oximetry 95 93 93 Oxygen Delivery Me thod Nasal Cannula Nasal Cannula Nasal Cannula Oxygen Flow Rate 1 1 1 04/07/23 17:53 04/07/23 17:53 04/07/23 21:00 Temperature 97.7 F Pulse Rate Pulse Rate [Pulse Oximeter] Pulse Rate [Right Pulse Oximeter] 96 102 H Respiratory Rate 18 20 20 Blood Pressure Blood Pressure [Le ft Arm] 110/85 124/74 Blood Pressure [Le ft Forearm] Pulse Oximetry 92 91 Oxygen Delivery Me thod Nasal Cannula Nasal Cannula Oxygen Flow Rate 1 1 04/08/23 00:40 04/08/23 00:40 04/08/23 00:40 Temperature Pulse Rate Pulse Rate [Pulse Oximeter] Pulse Rate [Right Pulse Oximeter] 92 92 Respiratory Rate 18 18 18 Blood Pressure Blood Pressure [Le ft Arm] 124/74 Blood Pressure [Le ft Forearm] Pulse Oximetry 89 89 Oxygen Delivery Me thod CPAP CPAP Oxygen Flow Rate 04/08/23 04:30 04/08/23 08:00 04/08/23 08:56 Temperature 96.8 F L Pulse Rate Pulse Rate [Pulse Oximeter] Pulse Rate [Right Pulse Oximeter] 83 93 Respiratory Rate 16 20 20 Blood Pressure Blood Pressure [Le ft Arm] 125/70 133/75 Blood Pressure [Le ft Forearm] Pulse Oximetry 88 88 88 Oxygen Delivery Me thod CPAP Room Air Room Air Oxygen Flow Rate Labs Labs: Laboratory Results - last 24 hr 04/07/23 04/08/23 14:40 05:55 WBC 9.78 6.95 RBC 4.78 4.78 Hgb 14.7 14.3 Hct 45.9 46.5 MCV 96 97 MCH 31 30 MCHC 32 31 L RDW Coeff of Aby 16.5 H Plt Count 272 231 Neut % (Auto) 79.5 H Lymph % (Auto) 11.7 L [place] % (Auto) 6.9 Eos % (Auto) 1.5 Baso % (Auto) 0.2 Neut # (Auto) 7.80 H Lymph # (Auto) 1.10 [place] # (Auto) 0.70 Eos # (Auto) 0.15 Baso # (Auto) 0.02 Abs Immat Gran (auto) 0.02 Imm/Tot Granulo (auto) 0.2 INR 2.07 H 2.30 H D-Dimer Quant (PE/DVT) 1.08 H VBG pH 7.352 VBG pCO2 55 H VBG pO2 29.1 VBG HCO3 30 H Sodium 138 139 Potassium 4.1 4.2 Chloride 102 104 Carbon Dioxide 24 28 Anion Gap 12 7 BUN 23 23 Creatinine 1.5 1.4 Estimated Creat Clear 34.00 Estimated GFR 37 40 Glucose 126 H 125 H Lactate 1.4 1.3 Calcium 8.5 8.1 L Phosphorus 5.0 H Magnesium 1.5 Total Bilirubin 1.1 Direct Bilirubin 0.1 AST 27 ALT 14 Alkaline Phosphatase 111 C-Reactive Protein 4.0 H 4.8 H NT-Pro-B Natriuret Pep 2090 3220 Total Protein 7.1 Albumin 3.8 TSH 2.030 POC Troponin I 0.02
--- NOTE | 2023-04-08 11:43 | PC.NURSE ---
MD WOODWARD UPDATED REGARDING NURSING STAFF NEEDING TO REMOVE PERIPHERAL IV TO R AC DUE TO RESISTANCE WITH NS FLUSH THIS MORNING. MD WOODWARD STATES PATIENT DOES NOT NEED IV AT THIS TIME.
--- NOTE | 2023-04-08 13:47 | PC.SOCIAL ---
Discharge planning- Met with pt in room to discuss discharge plans. Per therapy, recommendation is SNF for short term rehab. Pt is refusing SNF at this time as she believes she does not need any therapy. Discussed recommendations in detail and safety and pt continued to refuse. Pt informs that she has home health services in place with [facility] which includes Lymphedema therapy and PT. Social work will continue to follow up as needed.
[2023-04-08] MEDS: ACETAMINOPHEN 500 MG TABLET 1000 MG PO (14:06)
--- NOTE | 2023-04-08 14:37 | PC.NURSE ---
SHIFT NOTE: VSS AND PATIENT HAS BEEN AFEBRILE THIS SHIFT. SHE DID C/O 5/10 SHOOTING NEUROPATHY PAIN TO BILATERAL LOWER EXTREMITIES THIS AFTERNOON AND PRN TYLENOL WAS GIVEN. LUNG SOUNDS NOTED TO BE DIMINISHED BILATERALLY DUE TO PATIENT'S HX OF COPD. RT UPDATED THAT PATIENT BROUGHT HER OWN CPAP FROM HOME AND HAS BEEN USING FOR IRENA. PATIENT HAS EDEMA NOTED BILATERALLY WITH ELEVATION ENCOURAGED WHEN IN BED. COUGHING, DEEP BREATHING AND INCENTIVE SPIROMETER USE ENCOURAGED. 20G IV REMOVED FROM R AC DUE TO IV NO LONGER PATENT. HOLLAND CATHETER REMAINS IN PLACE AND IS NOW DRAINING PALE YELLOW URINE WITH 1225 ML TOTAL URINARY OUTPUT NOTED THROUGHOUT THE SHIFT. PATIENT REMAINS ON FLUID RESTRICTION OF 2000 ML DAILY- RESPIRATORY ASSISTANT DID TALK TO PATIENT ABOUT THIS AND REMIND HER THAT STAFF ARE TRACKING INTAKE WELL OUTPUT. PATIENT HAS BEEN UNABLE TO SAFELY AMBULATE THIS SHIFT. SHE STATES SHE USES BILATERAL CRUTCHES FOR AMBULATION AT HOME WITH USE OF ELECTRIC SCOOTER. THERAPY STAFF HAVE PROVIDED CRUTCHES FOR PATIENT TO USE. PATIENT WAS ONLY ABLE TO PIVOT TRANSFER TODAY WITH NURSING STAFF. SHE DID USE COMMODE BEFORE LUNCH AND WAS ABLE TO HAVE MEDIUM BOWEL MOVEMENT WHICH WAS NOTED TO BE BOTH CONTINENT AND INCONTINENT. REDNESS NOTED TO BREAST, ABDOMINAL AND GROIN FOLDS WITH AREAS CLEANSED AND PATTED DRY BEFORE APPLYING PRESCRIBED CREAMS AND INTERDRY TO KEEP SKIN CLEAN AND DRY. BOWEL SOUNDS NOTED TO BE ACTIVE IN ALL FOUR QUADRANTS THIS SHIFT. PATIENT ABLE TO TAKE PILLS WHOLE WITH NO CONCERNS NOTED. NICOTINE PATCH REMAINS IN PLACE TO L SHOULDER.
[2023-04-08] MEDS: WARFARIN 2.5 MG TABLET PO (17:33)
--- NOTE | 2023-04-08 18:51 | PC.NURSE ---
PATIENT MOVED TO CCU4 DUE TO BARIATRIC BED AND MORE SPACE FOR EQIPMENT. PATIENT ABLE TO PIVOT TRANSFER WITH USE OF BILATERAL CRUTCHES AND GAIT BELT WITH 2 STAFF PRESENT FOR SAFETY. HOLLAND CATHETER REMAINS IN PLACE AND IS PATENT WITH PALE YELLOW URINE. PATIENT ATE APPROXIMATELY 60% FOR SUPPER AND THEN REQUESTED TO GET BACK INTO BED. PATIENT UNABLE TO LIFT LEFT LEG DESPITE ENCOURAGEMENT FROM STAFF. SHE STATES NEUROPATHY PAIN TO BILATERAL LOWER EXTREMITIES, ESPECIALLY BOTTOMS OF FEET IS ONGOING AND ICE HAS BEEN PROVIDED TO HELP REDUCE PAIN. PATIENT WEARING 1 L O2 AT THIS TIME WITH O2 SAT OF 89% ON 1 LITER. SHE DOES HAVE HX OF COPD AND WEARS CPAP AT [facility].
[2023-04-08] MEDS: ATORVASTATIN CALCIUM 40 MG TABLET 80 MG PO (20:46)
--- NOTE | 2023-04-08 22:26 | PC.NURSE ---
End of shift [id number]: patient is resting soundly in bed.. CPAP on and in use. She refused her night time [employer]inc[employer] regimen with inner dry/ and cream. I explained to her how it would help her infection get better.. she still refused. Forde catheter in place patent and draining with no issues. BLE elevated on pillows. Patient uses ice as needed for neuropathy pain in her feet. Non pitting edema in both extremities ( largely edematous). 1999 fluid restricton has 300 ml remaining before it restarts. Call light within reach...
[2023-04-09 03:40] VITALS: BP 118/72; PULSE 86; RESP 18; TEMP 36.7; O2SAT 89
[2023-04-09] MEDS: ACETAMINOPHEN 500 MG TABLET 1000 MG PO (03:44)
[2023-04-09] MEDS: NICOTINE 21 MG PATCH 1 PATCH TRANSDERMA ×2 (03:52→23:58)
[2023-04-09 06:28] LABS: HCO3 VBG 35 mmol/L (21-28); PCO2 VBG 54 mmHG (40-50); PO2 VBG 43.5 mmHG (25-47); pH VBG 7.415 (7.32-7.43)
[2023-04-09] MEDS: OXYCODONE 5 MG TABLET PO (06:31)
[2023-04-09 06:55] LABS: INR 2.14 (0.91-1.10)
[2023-04-09 07:03] LABS: Chloride* 102 mmol/L (96-114); Sodium* 138 mmol/L (135-149)
[2023-04-09 07:04] LABS: Potassium* 3.8 mmol/L (3.6-5.1)
[2023-04-09 07:06] LABS: Anion Gap 5 mEq/L (7-15); Blood Urea Nitrogen* 24 mg/dL (7-30); Carbon Dioxide* 31 mmol/L (20-32); Creatinine* 1.3 mg/dL (0.5-1.5); Est. Creatinine Clearance* 36.62; Estimated Glomerular Filt Rate 44 ml/min
[2023-04-09 07:07] LABS: Calcium* 7.8 mg/dL (8.4-10.6); Glucose* 119 mg/dL (60-115)
--- NOTE | 2023-04-09 07:17 | PC.NURSE ---
Shift note [id number]: Pt is alert and oriented x3. Afebrile. Pt reports 7/10 pain in left hip, updated a one time dose 5mg Oxycodone was ordered for pain, and PRN Tylenol was given. Pt denies chest pain, SOB and N/V. Is up SBA with walker gait belt to bathroom. A new 20 gauge IV catheter was put in pt's left antecubital around 0645. Pt's Forde catheter is patent and draining. Pt is on 1L of oxygen with CPAP to maintain O2 stats above 88%. Pt refused turn and repositioning overnight, education given on benefits of turn and reposition and education on bed ulcers, pt refused. Pt slept intermittently throughout night.
[2023-04-09 07:22] VITALS: BP 136/94; PULSE 89; RESP 18; TEMP 36.2; O2SAT 90
[2023-04-09] MEDS: SODIUM CHLORIDE 0.9 % (FLUSH) 10 ML SYRINGE 5 ML IVF (07:39)
[2023-04-09] MEDS: 0.9 % SODIUM CHLORIDE 250 ml IV (07:39)
--- NOTE | 2023-04-09 09:33 | CRLHL7_ITS ---
For Patients: As a result of the Century Cures Act, medical imaging exams and procedure reports are released immediately into your electronic medical record. You may view this report before your referring provider. If you have questions, please contact your health care provider. INDICATION: HYPOXIA, POSITIVE BC, EVAL FOR PNA TECHNIQUE: Chest 1 views. COMPARISON: April 07, 2023 IMPRESSION: Prominent cardiomegaly with increased central vascular congestion and interstitial prominence concerning for pulmonary edema. Bibasilar airspace opacities which may represent atelectasis or pneumonia. No evidence of effusion or pneumothorax. Single lead pacemaker again noted. Dictated by Mauricio Cummings MD @ 04/09/2023 10:20:51 AM (Electronically Signed)
--- NOTE | 2023-04-09 10:16 | P.IMPN_ITS ---
Progress Note: A&P Assessment and plan (1) Chronic acquired lymphedema: Problem details: - Utilizes lymphedema leg pumps twice daily at home. - Requires lymphedema wraps with support from home care services from time to time. - 04/07/2023: Acutely worse due to broken recliner chair and inability to elevate her legs for the past 5 days; recliner chair was fixed on 04/07/2023 before she came into the hospital for assessment. -04/08/23: Stable Status: Acute (2) Acute hypoxic respiratory failure: Problem details: Patient initially required supplemental O2, but then was weaned to RA for a day. 04/09/23 she is again requiring supplemental O2 Initially suspected due to pulmonary edema and underlying acute on chronic diastolic heart failure. Now diuresing, but BC is positive with unclear source. Also with high risk for obesity hypoventilation. -Continue supplemental O2, weaning as able -Repeat CXR, make sure no underlying PNA contributing -VBG with stable pCO2, continue to monitor Status: Acute (3) Positive blood culture: Problem details: Gram+ cocci in clusters in anaerobic culture. Afebrile and no leukocytosis. Unclear if this is contaminant or represents a true infection -Continue vancomycin (started 04/08/23 at 2100) with pharmacy assistance -Repeat CXR given ongoing hypoxia -Check UA/UC -Repeat BC until negative 72H -Follow BC for species and sensitivities. Status: Acute (4) Cardiorenal syndrome: Problem details: Possible cardiorenal. Creatinine improving with diuresis Status: Acute (5) Chronic diastolic heart failure: Problem details: Noted. Status: Acute (6) Insulin-requiring or dependent type II diabetes mellitus: Problem details: Glucose is well controlled Continue present management with lower dose glargine, glimeperide and SSI Status: Acute (7) Pulmonary hypertension: Problem details: - Transthoracic echocardiogram 02/11/2023: 1. Normal LV size, thickness. EF 55-60%. No regional wall motion abnormalities. 2. RV normal size. 3. Moderate to severe biatrial enlargement. 4. Trace tricuspid regurgitation. Elevated right ventricular systolic pressure consistent with severe pulmonary hypertension. 5. Findings similar to previous echocardiogram on 06/21/2022. - 04/07/2023: double dose of bumetanide from 3 mg once daily to 3 mg twice daily for now, and monitor laboratory studies -04/08/23: Diuresing well, continue bumex 3mg BID -04/09/23: Continues to diurese well, but bicarb is rising. At risk for contraction alkalosis. Continue bumex 3mg BID with daily BMP and VBG Status: Acute (8) Diabetic peripheral neuropathy associated with type 2 diabetes mellitus: Problem details: - due to decreased creatinine clearance, will decrease dose of gabapentin to 300 mg twice daily Status: Acute (9) Failure to thrive in adult: Problem details: - 04/07/2023: Will have PT and OT assess and assist with recommendations. Will also have director social welfare to assist with discharge disposition planning. Status: Acute (10) Physical debility: Problem details: Noted. Appreciate physical therapy Status: Acute (11) Physical deconditioning: Status: Acute (12) Chronic kidney disease, stage III (moderate): Problem details: - 04/07/2023: monitor labs closely as we intervene -04/08/23: Suspect a component of cardiorenal- improving with diuresis Status: Acute (13) Yeast dermatitis: Problem details: - 04/07/2023: In intertriginous folds - 1:1 compound of clotrimazole 1% and triamcinolone 0.1% creams applied twice daily to affected areas - temporary Forde catheter to protect the skin in the perineum that is affected by the yeast dermatitis as well as incontinence associated dermatitis, continue for now but plan for voiding trial prior to discharge Status: Acute (14) Urinary incontinence: Problem details: - 04/07/2023: given the incontinence associated dermatitis and yeast dermatitis in the perineum, will need temporary placement of Forde catheter. - will need to consider safe, long-term treatment plan given her debility and already demonstrated inability to care for herself in this way. Status: Acute (15) Incontinence associated dermatitis: Problem details: - secondary to chronic urinary incontinence and inability for her to care for herself Status: Acute Subjective Date Seen: 04/09/23 Interval history: Subjective: Patient is seen and examined. She is feeling somewhat worse today with increased weakness/fatigue. She is requiring supplemental O2 to maintain O2 sats greater than 90%, especially with exertion. Overnight events reviewed and patient now has blood culture positive for Gram + cocci. She was initiated on vancomycin overnight. She also complains of left hip pain which is new. She is s/p LTHA with indwelling hardware in both hips and knees. No fevers since arrival and no leukocytosis. Does not meet severe sepsis criteria. Possible the BC is a contaminant, but potential sources would include respiratory tract, urine, skin, less likely endocarditis or septic joint. Objective: General- tired appearing, no distress, morbidly obese HEENT- NCAT, MMM CV: IRR, no murmur Resp: CTAB, breathing is comfortable at rest, but increased WOB with standing at bedside Extremities: 1-2+ MARILU to at least the knees Skin: Warm, dry, no rash. Perineum is erythematous Neuro: Awake, alert, no lateralizing deficits. Exam Const: Vital Signs, click to edit/add: Vital Signs - 24 hr 04/08/23 11:00 04/08/23 15:27 04/08/23 15:28 Temperature 97.6 F 97.7 F Pulse Rate [Right Pulse Oximeter] 83 98 Respiratory Rate 18 16 16 Blood Pressure [Le ft Arm] 104/58 L Blood Pressure [Ri ght Arm] 113/69 Pulse Oximetry 89 89 89 Oxygen Delivery Me thod Room Air Nasal Cannula Nasal Cannula Oxygen Flow Rate 1 1 04/08/23 19:23 04/08/23 23:55 04/08/23 23:55 Temperature Pulse Rate [Right Pulse Oximeter] 76 93 Respiratory Rate 18 18 20 Blood Pressure [Le ft Arm] Blood Pressure [Ri ght Arm] 127/76 Pulse Oximetry 88 86 L Oxygen Delivery Me thod CPAP Room Air CPAP Oxygen Flow Rate 04/08/23 23:55 04/09/23 03:40 04/09/23 07:22 Temperature 98.0 F 98.1 F Pulse Rate [Right Pulse Oximeter] 93 86 Respiratory Rate 20 18 18 Blood Pressure [Le ft Arm] Blood Pressure [Ri ght Arm] 122/70 118/72 Pulse Oximetry 86 L 89 90 Oxygen Delivery Me thod CPAP CPAP Room Air Oxygen Flow Rate 1 0 04/09/23 07:22 Temperature 97.1 F L Pulse Rate [Right Pulse Oximeter] 89 Respiratory Rate 18 Blood Pressure [Le ft Arm] Blood Pressure [Ri ght Arm] 136/94 H Pulse Oximetry 90 Oxygen Delivery Me thod Room Air Oxygen Flow Rate Labs Labs: Laboratory Results - last 24 hr 04/09/23 05:50 INR 2.14 H VBG pH 7.415 VBG pCO2 54 H VBG pO2 43.5 VBG HCO3 35 H Sodium 138 Potassium 3.8 Chloride 102 Carbon Dioxide 31 Anion Gap 5 L BUN 24 Creatinine 1.3 Estimated Creat Clear 36.62 Estimated GFR 44 Glucose 119 H Calcium 7.8 L Ionized Calcium Reymundo 1.00 L
[2023-04-09] MEDS: BUMETANIDE 1 MG TABLET 3 MG PO ×2 (10:17→20:38)
[2023-04-09] MEDS: TRIAMCINOLONE ACETONIDE CREAM 0.1 % 1 APPLIC TOPICAL ×2 (10:17→20:34)
[2023-04-09] MEDS: POTASSIUM CHLORIDE 10 MEQ CAPSULE ER 20 MEQ PO (10:18)
[2023-04-09] MEDS: METOPROLOL SUCCINATE (XL) 100 MG TAB 200 MG PO (10:18)
[2023-04-09] MEDS: dilTIAZem 240 MG CAP (CD) PO (10:18)
[2023-04-09] MEDS: GABAPENTIN 300 MG CAPSULE PO ×2 (10:19→20:38)
[2023-04-09] MEDS: EMPAGLIFLOZIN 10 MG TABLET PO (10:19)
[2023-04-09] MEDS: ASPIRIN 81 MG TABLET EC PO (10:19)
[2023-04-09] MEDS: CALCIUM CARBONATE 500 MG CHEW PO ×3 (10:19→20:38)
[2023-04-09] MEDS: CLOTRIMAZOLE 1 % CREAM 1 APPLIC TOPICAL ×2 (10:22→20:35)
[2023-04-09 10:45] VITALS: BP 131/80; PULSE 98; RESP 18; TEMP 36.6; O2SAT 91
--- NOTE | 2023-04-09 11:08 | NUTR.NU ---
RDN with MD consult for lymphedema and Type 2 Diabetes Mellitus. Patient is currently on a Diabetic, 2 gram sodium diet with 2000ml Fluid Restriction. RDN completed nutrition assessment 04/08/23. Diabetic diet education and education on a low sodium diet related to congestive heart failure provided. Discussed basics of carbohydrate counting including sources of carbohydrates, serving sizes, and label reading. Discussed using the plate method for carbohydrate-controlled, balanced meals that include ? plate non-starchy vegetables, ? plate protein, and 3-4 servings of carbohydrates per meal (fruit, whole grains, legumes, milk, yogurt) and 1-2 per snack. Recommend limiting sodium to 2,000 mg per day and limiting saturated fat.? Discussed foods recommended and to avoid.?Handouts provided to support discussion and education for the patient's reference. RDN contact information provided and encouraged patient to call with questions. RDN to follow up as needed.
[2023-04-09 12:18] LABS: Appearance Urine Clear (Clear); Bilirubin Urine Negative (Negative); Blood Urine Negative (Negative); Color Urine Yellow (Yellow); Glucose Urine Negative (Negative); Ketones Urine Negative (Negative); Leukocyte Esterase Urine Negative (Negative); Nitrite Urine Negative (Negative); Protein Urine Negative (Negative); Specific Gravity Urine <= 1.005 (1.000-1.030); Urobilinogen Urine 0.2 (0.2-1.0); pH Urine 5.5 (5.0-8.5)
[2023-04-09 12:24] LABS: RBC Urine 0-2 (0-2); WBC Urine 0-2 (0-5)
[2023-04-09 16:30] VITALS: BP 128/82; PULSE 78; RESP 18; TEMP 36.7; O2SAT 90
[2023-04-09] MEDS: WARFARIN 2.5 MG TABLET PO (18:29)
--- NOTE | 2023-04-09 18:47 | PC.NURSE ---
Pt alert and oriented. Pt had complaints of pain ranging from 3-5. Pt slept later morning through-later afternoon. Pt did not get up to chair during shift due to feeling unwell. Pt?s catheter fell out and balloon was deflated but intact. The hospitalist notified instructed to not insert new donald catheter. VSS.?
[2023-04-09 19:00] VITALS: BP 124/90; PULSE 92; RESP 18; TEMP 36.7; O2SAT 90
[2023-04-09] MEDS: ATORVASTATIN CALCIUM 40 MG TABLET 80 MG PO (20:38)
[2023-04-09 23:00] VITALS: BP 122/77; PULSE 92; PULSE 97; RESP 18; TEMP 36.1; O2SAT 91
[2023-04-10 03:00] VITALS: BP 119/77; PULSE 95; RESP 20; TEMP 36.7; O2SAT 90
--- NOTE | 2023-04-10 05:50 | PC.NURSE ---
SHIFT NOTE -: Pt soaked bed with urine x2 and order received to reinsert catheter, pt tolerated well. 3700ml urine out of Forde catheter since insertion yesterday at 1999. Pt denies SOB, CP, N/V and pain. Oxygen saturation >90% when on 2L O2 PNC, 2L O2 bled into CPAP at HS. Pt up to recliner last evening with a very heavy 2 assist, very heavy 2 assist reposition in bed. Folds to pannus and angela area cleaned, cream applied.
[2023-04-10 07:00] VITALS: BP 128/91; PULSE 91; RESP 20; TEMP 35.9; O2SAT 91
[2023-04-10 07:03] LABS: HCO3 VBG 40 mmol/L (21-28); Ionized Calcium* 1.03 mmol/L (1.11-1.30); PCO2 VBG 58 mmHG (40-50); PO2 VBG 33.2 mmHG (25-47); pH VBG 7.448 (7.32-7.43)
[2023-04-10 07:06] LABS: Basophils Absolute Auto 0.01 K/uL (0.00-0.30); Basophils Percent Auto 0.1 % (0.0-3.0); Eosinophils Absolute Auto 0.21 K/uL (0.00-0.50); Eosinophils Percent Auto 2.8 % (0.0-7.0); Hematocrit 42.2 % (33.0-51.0); Hemoglobin* 13.4 gm/dL (12.0-16.0); Immature Granulocytes Abs Auto 0.01 K/uL (0.00-0.30); Immature Granulocytes Pct Auto 0.1 %; Lymphocytes Percent Auto 13.8 % (20-44); Mean Corpuscular HGB Conc 32 gm/dL (32-36); Mean Corpuscular Hemoglobin 31 pg (26-34); Mean Corpuscular Volume 97 fL (80-100); Monocytes Percent Auto 8.8 % (0.0-11.0); Neutrophils Percent Auto 74.4 % (42.0-72.0); Platelet Count* 219 K/uL (140-440); RDW Coefficient of Variation % 16.2 % (11.5-15.5); Red Blood Count 4.36 m/uL (4.00-5.20); White Blood Count* 7.53 K/uL (4.50-11.00)
[2023-04-10 07:10] LABS: Slide Review Reflex No
[2023-04-10 07:19] LABS: Chloride* 96 mmol/L (96-114); Potassium* 3.4 mmol/L (3.6-5.1); Sodium* 140 mmol/L (135-149)
[2023-04-10 07:21] LABS: INR 2.09 (0.91-1.10); Prothrombin Time 24.5 Seconds
[2023-04-10 07:22] LABS: Anion Gap 7 mEq/L (7-15); Blood Urea Nitrogen* 24 mg/dL (7-30); Calcium* 8.2 mg/dL (8.4-10.6); Carbon Dioxide* 37 mmol/L (20-32); Creatinine* 1.3 mg/dL (0.5-1.5); Est. Creatinine Clearance* 36.62; Estimated Glomerular Filt Rate 44 ml/min; Glucose* 129 mg/dL (60-115)
[2023-04-10] MEDS: CALCIUM CARBONATE 500 MG CHEW PO ×2 (08:50→21:34)
[2023-04-10] MEDS: dilTIAZem 240 MG CAP (CD) PO (08:50)
[2023-04-10] MEDS: ASPIRIN 81 MG TABLET EC PO (08:50)
[2023-04-10] MEDS: EMPAGLIFLOZIN 10 MG TABLET PO (08:50)
[2023-04-10] MEDS: METOPROLOL SUCCINATE (XL) 100 MG TAB 200 MG PO (08:50)
[2023-04-10] MEDS: BUMETANIDE 1 MG TABLET 3 MG PO (08:51)
[2023-04-10] MEDS: POTASSIUM CHLORIDE 10 MEQ CAPSULE ER 20 MEQ PO (08:51)
[2023-04-10] MEDS: GABAPENTIN 300 MG CAPSULE PO ×2 (08:51→21:35)
[2023-04-10] MEDS: ACETAMINOPHEN 500 MG TABLET 1000 MG PO (08:53)
[2023-04-10] MEDS: 0.9 % SODIUM CHLORIDE 250 ml IV (09:08)
[2023-04-10] MEDS: SODIUM CHLORIDE 0.9 % (FLUSH) 10 ML SYRINGE 5 ML IVF (09:10)
--- NOTE | 2023-04-10 09:35 | PM.IMPN1 ---
Progress Note: A&P Assessment and plan (1) Pulmonary hypertension: Problem details: Patient presented with decompensated HFpEF likely secondary to pulmonary HTN and worsened lymphedema (see below). - Transthoracic echocardiogram 02/11/2023: 1. Normal LV size, thickness. EF 55-60%. No regional wall motion abnormalities. 2. RV normal size. 3. Moderate to severe biatrial enlargement. 4. Trace tricuspid regurgitation. Elevated right ventricular systolic pressure consistent with severe pulmonary hypertension. 5. Findings similar to previous echocardiogram on 06/21/2022. - 04/07/2023: double dose of bumetanide from 3 mg once daily to 3 mg twice daily for now, and monitor laboratory studies -04/08/23: Diuresing well, continue bumex 3mg BID -04/09/23: Continues to diurese well, but bicarb is rising. At risk for contraction alkalosis. Continue bumex 3mg BID with daily BMP and VBG -04/10/23: Diuresis has stalled. Now with contraction alkalosis. Will stop bumex and trial IV lasix 60mg BID Status: Acute (2) Chronic acquired lymphedema: Problem details: - Utilizes lymphedema leg pumps twice daily at home. - Requires lymphedema wraps with support from home care services from time to time. - 04/07/2023: Acutely worse due to broken recliner chair and inability to elevate her legs for the past 5 days; recliner chair was fixed on 04/07/2023 before she came into the hospital for assessment. -Stable, diuresing as above Status: Acute (3) Acute hypoxic respiratory failure: Problem details: Patient initially required supplemental O2, but then was weaned to RA for a day. 04/09/23 she is again requiring supplemental O2 Initially suspected due to pulmonary edema and underlying acute on chronic diastolic heart failure. Now diuresing, but BC is positive with unclear source. Also with high risk for obesity hypoventilation. -Continue supplemental O2, weaning as able -Repeat CXR 04/09/23 with bibasilar atelectasis, less likely PNA with no cough or fever -VBG with rising pCO2, continue to monitor Status: Acute (4) Positive blood culture: Problem details: Gram+ cocci in clusters in anaerobic culture. Afebrile and no leukocytosis. Unclear if this is contaminant or represents a true infection. UC without growth, no obvious pneumonia. Consider skin source with dermatitis of perineum and less likely septic arthritis with indwelling hardware and pain of left hip and knee. If spp is concerning (not likely contaminant) will need echo. -Continue vancomycin (started 04/08/23 at 2100) with pharmacy assistance -Repeat BC until negative 72H -Follow BC for species and sensitivities. Status: Acute (5) Cardiorenal syndrome: Problem details: Possible cardiorenal. Creatinine improving with diuresis Status: Acute (6) Chronic diastolic heart failure: Problem details: Noted. Likely secondary to severe pulmonary HTN as above. Status: Acute (7) Insulin-requiring or dependent type II diabetes mellitus: Problem details: Glucose is well controlled Continue present management with lower dose glargine, glimeperide and SSI Status: Acute (8) Diabetic peripheral neuropathy associated with type 2 diabetes mellitus: Problem details: - due to decreased creatinine clearance, decreased dose of gabapentin to 300 mg twice daily Status: Acute (9) Failure to thrive in adult: Problem details: Appreciate PT/OT. Current recommendation is for SNF, but patient has history of very negative experience at SNF and refusing placement. Status: Acute (10) Physical debility: Problem details: Noted. Appreciate physical therapy Status: Acute (11) Physical deconditioning: Status: Acute (12) Chronic kidney disease, stage III (moderate): Problem details: - 04/07/2023: monitor labs closely as we intervene -04/08/23: Suspect a component of cardiorenal- improving with diuresis Status: Acute (13) Yeast dermatitis: Problem details: - 04/07/2023: In intertriginous folds - 1:1 compound of clotrimazole 1% and triamcinolone 0.1% creams applied twice daily to affected areas - temporary Donald catheter to protect the skin in the perineum that is affected by the yeast dermatitis as well as incontinence associated dermatitis, continue for now but plan for voiding trial prior to discharge Status: Acute (14) Urinary incontinence: Problem details: - 04/07/2023: given the incontinence associated dermatitis and yeast dermatitis in the perineum, will need temporary placement of Donald catheter. - will need to consider safe, long-term treatment plan given her debility and already demonstrated inability to care for herself in this way. - Continue donald until mobility improves Status: Acute (15) Incontinence associated dermatitis: Problem details: - secondary to chronic urinary incontinence and inability for her to care for herself Status: Acute (16) Hypokalemia: Problem details: Likely due to diuresis. Will replace and monitor. Status: Acute (17) Alkalosis, metabolic: Problem details: Contraction alkalosis likely due to diuresis. Still with ongoing fluid overload. Adding acetazolamide to diuretics (ordered 250mg BID for 4 doses) Status: Acute (18) Hypocalcemia: Problem details: Unclear etiology. Will check PTH and continue to replace and monitor Status: Acute Time Spent With Patient Total time spent: 65 min Subjective Date Seen: 04/10/23 Interval history: Subjective: Patient is seen and examined. She feels improved from yesterday, but still with pain in left hip to knee. Diuresis now sluggish and she has contraction alkalosis. Blood cultures remain pending. CXR not convincing for PNA with no fever or cough. UC without growth. Objective: General- eating breakfast, no distress, morbidly obese HEENT- NCAT, MMM CV: IRR, no murmur Resp: CTAB, breathing is comfortable at rest Extremities: 1-2+ MARILU to at least the knees Skin: Warm, dry, no rash. Neuro: Awake, alert, no lateralizing deficits. Exam Const: Vital Signs, click to edit/add: Vital Signs - 24 hr 04/09/23 10:45 04/09/23 16:30 04/09/23 16:30 Temperature 97.9 F 98.0 F Pulse Rate [Right Pulse Oximeter] 98 78 Respiratory Rate 18 18 18 Blood Pressure [Ri t Arm] 131/80 128/82 Pulse Oximetry 91 90 90 Oxygen Delivery Me thod Nasal Cannula Oxygen Flow Rate 2 2 2 04/09/23 19:00 04/09/23 23:00 04/09/23 23:00 Temperature 98.1 F Pulse Rate [Right Pulse Oximeter] 92 92 Respiratory Rate 18 18 18 Blood Pressure [Ri ght Arm] 124/90 H Pulse Oximetry 90 91 Oxygen Delivery Me thod Nasal Cannula CPAP Oxygen Flow Rate 2 2 04/09/23 23:00 04/10/23 03:00 Temperature 97 F L 98.1 F Pulse Rate [Right Pulse Oximeter] 97 95 Respiratory Rate 18 20 Blood Pressure [Ri ght Arm] 122/77 119/77 Pulse Oximetry 91 90 Oxygen Delivery Me thod CPAP CPAP Oxygen Flow Rate 2 2 Labs Labs: Laboratory Results - last 24 hr 04/09/23 04/10/23 11:00 07:00 WBC 7.53 RBC 4.36 Hgb 13.4 Hct 42.2 MCV 97 MCH 31 MCHC 32 RDW Coeff of Aby 16.2 H Plt Count 219 Neut % (Auto) 74.4 H Lymph % (Auto) 13.8 L [place] % (Auto) 8.8 Eos % (Auto) 2.8 Baso % (Auto) 0.1 Neut # (Auto) 5.60 Lymph # (Auto) 1.00 [place] # (Auto) 0.70 Eos # (Auto) 0.21 Baso # (Auto) 0.01 Abs Immat Gran (auto) 0.01 Imm/Tot Granulo (auto) 0.1 INR 2.09 H VBG pH 7.448 H VBG pCO2 58 H VBG pO2 33.2 VBG HCO3 40 H Sodium 140 Potassium 3.4 L Chloride 96 Carbon Dioxide 37 H Anion Gap 7 BUN 24 Creatinine 1.3 Estimated Creat Clear 36.62 Estimated GFR 44 Glucose 129 H Calcium 8.2 L Ionized Calcium Reymundo 1.03 L Urine Color Yellow Urine Appearance Clear Urine pH 5.5 Ur Specific [place] <= 1.005 Urine Protein Negative Urine Glucose (UA) Negative Urine Ketones Negative Urine Blood Negative Urine Nitrite Negative Urine Bilirubin Negative Urine Urobilinogen 0.2 Ur Leukocyte Esterase Negative Urine RBC 0-2 Urine WBC 0-2 Ur Squamous Epith Cells None Urine Bacteria None
[2023-04-10 10:36] LABS: Magnesium* 1.3 mg/dL (1.5-2.6)
[2023-04-10] MEDS: TRIAMCINOLONE ACETONIDE CREAM 0.1 % 1 APPLIC TOPICAL ×2 (10:59→21:35)
[2023-04-10] MEDS: CLOTRIMAZOLE 1 % CREAM 1 APPLIC TOPICAL ×2 (10:59→21:34)
[2023-04-10 11:00] VITALS: BP 119/71; PULSE 85; RESP 20; TEMP 35.6; O2SAT 88
[2023-04-10] MEDS: FUROSEMIDE 10 MG/ML inj 60 MG IVP (11:00)
[2023-04-10] MEDS: POTASSIUM BICARB 25 MEQ EFFERVESCENT TAB PO ×2 (11:01→14:16)
[2023-04-10] MEDS: CALCIUM GLUC 1,000MG/50 ML 1,000 MG/50 ML BAG 100 MG IVPB (13:37)
[2023-04-10] MEDS: TIZANIDINE HCL 4 MG TABLET PO (13:37)
[2023-04-10] MEDS: MAGNESIUM OXIDE 400 MG TABLET PO (14:07)
[2023-04-10 15:00] VITALS: BP 107/74; PULSE 80; RESP 20; TEMP 35.8; O2SAT 91
--- NOTE | 2023-04-10 16:47 | PC.SOCIAL ---
Discharge planning: adult day care worker met with pt to readdress pt's discharge plans. Pt continues to refuse senior living placement for short term rehab at discharge. adult day care worker will remain available to assist if needed.
[2023-04-10] MEDS: MAGNESIUM IV 2 GM/50 ML PIGGYBACK IVPB (17:18)
[2023-04-10 19:00] VITALS: BP 110/69; PULSE 88; RESP 16; TEMP 36.8; O2SAT 89
--- NOTE | 2023-04-10 19:06 | PC.NURSE ---
Pt alert, oriented, and pleasant during shift. Pt tolerating regular diet, ambulates with 2 assist, gait belt, and uses crutches to stand and pivot. Pt up to bedside commode for BM. Catheter in place and patent. Freq repostioned for comfort. Pt reported pain during shift, managed with PRN medication - see MAR. RN provided education on nutritional meal options options, pt disregarded. Pt intermittently on 2L O2 via nasal cannula to keep sat between 88-92%. Pt applies CPAP during sleeping and naps, 2L O2 bled into mask to sat support. Patient resting comfortably at end of shift.
[2023-04-10] MEDS: WARFARIN 2.5 MG TABLET PO (20:19)
[2023-04-10] MEDS: acetaZOLAMIDE 250 MG TABLET PO (21:31)
[2023-04-10] MEDS: ATORVASTATIN CALCIUM 40 MG TABLET 80 MG PO (21:33)
[2023-04-10] MEDS: NICOTINE 21 MG PATCH 1 PATCH TRANSDERMA (21:43)
[2023-04-10 23:00] VITALS: BP 115/68; PULSE 79; PULSE 88; RESP 18; TEMP 36.6; O2SAT 93
[2023-04-11] MEDS: ACETAMINOPHEN 500 MG TABLET 1000 MG PO ×3 (00:05→22:39)
[2023-04-11] MEDS: TIZANIDINE HCL 4 MG TABLET PO ×3 (00:08→22:39)
[2023-04-11 03:00] VITALS: BP 121/74; PULSE 69; RESP 20; TEMP 36.2; O2SAT 92
[2023-04-11 07:00] VITALS: BP 122/77; PULSE 84; RESP 20; TEMP 35.8; O2SAT 92
[2023-04-11 07:48] LABS: HCO3 VBG 39 mmol/L (21-28); Ionized Calcium* 1.03 mmol/L (1.11-1.30); PO2 VBG 28.1 mmHG (25-47); pH VBG 7.411 (7.32-7.43)
[2023-04-11 07:50] LABS: PCO2 VBG 61 mmHG (40-50)
[2023-04-11 07:54] LABS: Basophils Absolute Auto 0.02 K/uL (0.00-0.30); Basophils Percent Auto 0.4 % (0.0-3.0); Eosinophils Absolute Auto 0.23 K/uL (0.00-0.50); Eosinophils Percent Auto 4.1 % (0.0-7.0); Hematocrit 41.6 % (33.0-51.0); Hemoglobin* 12.9 gm/dL (12.0-16.0); Immature Granulocytes Abs Auto 0.01 K/uL (0.00-0.30); Immature Granulocytes Pct Auto 0.2 %; Lymphocytes Percent Auto 17.4 % (20-44); Mean Corpuscular HGB Conc 31 gm/dL (32-36); Mean Corpuscular Hemoglobin 30 pg (26-34); Mean Corpuscular Volume 98 fL (80-100); Monocytes Percent Auto 9.1 % (0.0-11.0); Neutrophils Absolute Auto 3.87 K/uL (1.7-7.0); Neutrophils Percent Auto 68.8 % (42.0-72.0); Platelet Count* 221 K/uL (140-440); RDW Coefficient of Variation % 16.2 % (11.5-15.5); Red Blood Count 4.25 m/uL (4.00-5.20); White Blood Count* 5.62 K/uL (4.50-11.00)
[2023-04-11 07:57] LABS: Slide Review Reflex No
[2023-04-11 08:11] LABS: INR 2.06 (0.91-1.10); Prothrombin Time 24.3 Seconds
[2023-04-11 08:17] LABS: Chloride* 94 mmol/L (96-114)
[2023-04-11 08:18] LABS: Potassium* 3.9 mmol/L (3.6-5.1); Sodium* 138 mmol/L (135-149)
[2023-04-11 08:20] LABS: Creatinine* 1.4 mg/dL (0.5-1.5); Estimated Glomerular Filt Rate 40 ml/min
[2023-04-11 08:21] LABS: Anion Gap 5 mEq/L (7-15); Blood Urea Nitrogen* 26 mg/dL (7-30); Calcium* 8.1 mg/dL (8.4-10.6); Carbon Dioxide* 39 mmol/L (20-32); Glucose* 152 mg/dL (60-115); Magnesium* 1.8 mg/dL (1.5-2.6)
[2023-04-11] MEDS: POTASSIUM CHLORIDE 10 MEQ CAPSULE ER 20 MEQ PO (08:34)
[2023-04-11] MEDS: GABAPENTIN 300 MG CAPSULE PO ×2 (08:35→20:57)
[2023-04-11] MEDS: acetaZOLAMIDE 250 MG TABLET PO ×2 (08:35→20:58)
[2023-04-11] MEDS: MAGNESIUM OXIDE 400 MG TABLET PO (08:36)
[2023-04-11] MEDS: METOPROLOL SUCCINATE (XL) 100 MG TAB 200 MG PO (08:36)
[2023-04-11] MEDS: dilTIAZem 240 MG CAP (CD) PO (08:36)
[2023-04-11] MEDS: CALCIUM CARBONATE 500 MG CHEW PO ×2 (08:36→20:58)
[2023-04-11] MEDS: EMPAGLIFLOZIN 10 MG TABLET PO (08:36)
[2023-04-11] MEDS: ASPIRIN 81 MG TABLET EC PO (08:36)
[2023-04-11] MEDS: TRIAMCINOLONE ACETONIDE CREAM 0.1 % 1 APPLIC TOPICAL ×2 (08:39→20:58)
[2023-04-11] MEDS: 0.9 % SODIUM CHLORIDE 250 ml IV (08:40)
[2023-04-11] MEDS: CLOTRIMAZOLE 1 % CREAM 1 APPLIC TOPICAL ×2 (08:40→20:59)
--- NOTE | 2023-04-11 09:08 | P.IMPN_ITS ---
Progress Note: A&P Assessment and plan (1) Pulmonary hypertension: Problem details: Patient presented with decompensated HFpEF likely secondary to pulmonary HTN and worsened lymphedema (see below). - Transthoracic echocardiogram 02/11/2023: 1. Normal LV size, thickness. EF 55-60%. No regional wall motion abnormalities. 2. RV normal size. 3. Moderate to severe biatrial enlargement. 4. Trace tricuspid regurgitation. Elevated right ventricular systolic pressure consistent with severe pulmonary hypertension. 5. Findings similar to previous echocardiogram on 06/21/2022. - 04/07/2023: double dose of bumetanide from 3 mg once daily to 3 mg twice daily for now, and monitor laboratory studies -04/08/23: Diuresing well, continue bumex 3mg BID -04/09/23: Continues to diurese well, but bicarb is rising. At risk for contraction alkalosis. Continue bumex 3mg BID with daily BMP and VBG -04/10/23: Diuresis has stalled. Now with contraction alkalosis. Will stop bumex and trial IV lasix 60mg BID - 04/11/23: 04/07 Wt 170kg, 04/10 wt 156 kg, today wt 152 kg. Improving. Acetazolamide was started yesterday. Lasix now ordered BID, last night's dose not given due to EMR confusion. Continue diuresis. Continue donald while doing aggressive diuresis. Continue to monitor creatinine and electrolytes daily. Status: Acute (2) Chronic diastolic heart failure: Problem details: Noted. Likely secondary to severe pulmonary HTN as above. Status: Acute (3) Cardiorenal syndrome: Problem details: Possible cardiorenal. Creatinine stable. Monitor daily. Status: Acute (4) Chronic acquired lymphedema: Problem details: - Utilizes lymphedema leg pumps twice daily at home. - Requires lymphedema wraps with support from home care services from time to time. - 04/07/2023: Acutely worse due to broken recliner chair and inability to elevate her legs for the past 5 days; recliner chair was fixed on 04/07/2023 before she came into the hospital for assessment. -improving, continued diuresis as above Status: Acute (5) Acute hypoxic respiratory failure: Problem details: Patient initially required supplemental O2, but then was weaned to RA for a day. 04/09/23 she is again requiring supplemental O2 Initially suspected due to pulmonary edema and underlying acute on chronic diastolic heart failure. Now diuresing, but BC is positive with unclear source. Also with high risk for obesity hypoventilation. -Continue supplemental O2, weaning as able -Repeat CXR 04/09/23 with bibasilar atelectasis, less likely PNA with no cough or fever -VBG with rising pCO2, continue to monitor - 04/11/23 suspect this is acute on chronic hypoxic and hypercapnic respiratory failure as this is compensated hypercapnia. I suspect obesity hypoventilation syndrome and sleep apnea. Monitor for daytime somnolence. Status: Acute (6) Positive blood culture: Problem details: Gram+ cocci in clusters in anaerobic culture. Afebrile and no leukocytosis. Unclear if this is contaminant or represents a true infection. UC without growth, no obvious pneumonia. Consider skin source with dermatitis of perineum and less likely septic arthritis with indwelling hardware and pain of left hip and knee. If spp is concerning (not likely contaminant) will need echo. -Continue vancomycin (started 04/08/23 at 2100) with pharmacy assistance -Repeat BC until negative 72H -blood culture grew out Finegoldia spp. (formerly peptostreptococcus spp.). I suspect this is a contaminant. She has remained afebrile and without leukocytosis. No obvious source of infection. Stop vancomycin. No further workup. Status: Acute (7) Insulin-requiring or dependent type II diabetes mellitus: Problem details: - Glucose is well controlled for inpatient management, 130s to 180s. - Continue present management with lower dose glargine, glimeperide and SSI Status: Acute (8) Diabetic peripheral neuropathy associated with type 2 diabetes mellitus: Problem details: - due to decreased creatinine clearance, decreased dose of gabapentin to 300 mg twice daily Status: Acute (9) Failure to thrive in adult: Problem details: Appreciate PT/OT. Current recommendation is for SNF, but patient has history of very negative experience at SNF and refusing placement. Continue to evaluate as patient is diuresed she may be able to move more. Status: Acute (10) Physical debility: Problem details: Noted. Appreciate physical therapy Status: Acute (11) Physical deconditioning: Status: Acute (12) Chronic kidney disease, stage III (moderate): Problem details: - 04/07/2023: monitor labs closely as we intervene -04/08/23: Suspect a component of cardiorenal- improving with diuresis Status: Acute (13) Yeast dermatitis: Problem details: - 04/07/2023: In intertriginous folds - 1:1 compound of clotrimazole 1% and triamcinolone 0.1% creams applied twice daily to affected areas - temporary Donald catheter to protect the skin in the perineum that is affected by the yeast dermatitis as well as incontinence associated dermatitis, continue for now but plan for voiding trial prior to discharge Status: Acute (14) Urinary incontinence: Problem details: - 04/07/2023: given the incontinence associated dermatitis and yeast dermatitis in the perineum, will need temporary placement of Donald catheter. - will need to consider safe, long-term treatment plan given her debility and already demonstrated inability to care for herself in this way. - Continue donald until mobility improves Status: Acute (15) Incontinence associated dermatitis: Problem details: - secondary to chronic urinary incontinence and inability for her to care for herself Status: Acute (16) Hypokalemia: Problem details: Likely due to diuresis. Now resolved after replacement, continue to monitor while on aggressive diuresis. Status: Acute (17) Alkalosis, metabolic: Problem details: Contraction alkalosis likely due to diuresis. Still with ongoing fluid overload. Added acetazolamide to diuretics (ordered 250mg BID for 4 doses) on 04/10/2023. Status: Acute (18) Hypocalcemia: Problem details: Unclear etiology. Will check PTH and continue to replace and monitor Status: Acute Plan INR within goal of 2-3 for paroxysmal atrial fibrillation. Continue to monitor while in the hospital. Time Spent With Patient Total time spent: Today I spent 50 minutes rounding on the patient. Greater than 50% included discussing care with the team, reviewing data, updating and managing the care plan. Subjective Time Seen by Provider: 08:06 Date Seen: 04/11/23 Interval history: Sydnie is feeling much better today. She notes that she can finally lift her legs in and out bed again. She has not been able to do that in over 2 months. She also sees improvement in the top of her feet. These were so swollen before that she could not fit her feet inside her shoes. They are finally looking a bit better as well. Exam Narrative: Exam Narrative: General: No acute distress. Awake, alert, oriented. No pallor. No jaundice. Morbidly obese. Oropharynx: Clear. Mucous membranes moist. Cardiovascular: Regular rate and rhythm. No murmurs, gallops, or rubs. Respiratory: Clear to auscultation bilaterally. Bibasilar crackles, right greater than left. Abdomen: Bowel sounds present. Soft, nondistended, nontender. Extremities: Massively large legs. 2+ edema to knees. Const: Vital Signs, click to edit/add: Vital Signs - 24 hr 04/10/23 11:00 04/10/23 15:00 04/10/23 15:00 Temperature 96.1 F L 96.5 F L Pulse Rate [Right Pulse Oximeter] 85 80 Respiratory Rate 20 20 20 Blood Pressure [Le ft Arm] 119/71 107/74 Pulse Oximetry 88 91 91 Oxygen Delivery Me thod CPAP Nasal Cannula Nasal Cannula Oxygen Flow Rate 2 2 04/10/23 19:00 04/10/23 23:00 04/10/23 23:00 Temperature 98.2 F Pulse Rate [Right Pulse Oximeter] 88 88 Respiratory Rate 16 18 18 Blood Pressure [Le ft Arm] 110/69 Pulse Oximetry 89 93 Oxygen Delivery Me thod Nasal Cannula CPAP Oxygen Flow Rate 1.5 2 04/10/23 23:00 04/11/23 03:00 04/11/23 07:00 Temperature 97.9 F 97.2 F L Pulse Rate [Right Pulse Oximeter] 79 69 Respiratory Rate 18 20 Blood Pressure [Le ft Arm] 115/68 121/74 Pulse Oximetry 93 92 92 Oxygen Delivery Me thod CPAP CPAP Room Air Oxygen Flow Rate 2 2 04/11/23 07:00 Temperature 96.4 F L Pulse Rate [Right Pulse Oximeter] 84 Respiratory Rate 20 Blood Pressure [Le ft Arm] 122/77 Pulse Oximetry 92 Oxygen Delivery Me thod Room Air Oxygen Flow Rate Labs Labs: Laboratory Results - last 24 hr 04/10/23 04/10/23 04/10/23 07:00 09:44 09:46 WBC RBC Hgb Hct MCV MCH MCHC RDW Coeff of Aby Plt Count Neut % (Auto) Lymph % (Auto) [place] % (Auto) Eos % (Auto) Baso % (Auto) Neut # (Auto) Lymph # (Auto) [place] # (Auto) Eos # (Auto) Baso # (Auto) Abs Immat Gran (auto) Imm/Tot Granulo (auto) INR VBG pH VBG pCO2 VBG pO2 VBG HCO3 Sodium Potassium Chloride Carbon Dioxide Anion Gap BUN Creatinine Estimated Creat Clear Estimated GFR Glucose Calcium Ionized Calcium Reymundo Magnesium 1.3 L Lab Acknowledgement Test Added Test Added 04/10/23 04/11/23 04/11/23 15:15 04:00 07:15 WBC 5.62 RBC 4.25 Hgb 12.9 Hct 41.6 MCV 98 MCH 30 MCHC 31 L RDW Coeff of Aby 16.2 H Plt Count 221 Neut % (Auto) 68.8 Lymph % (Auto) 17.4 L [place] % (Auto) 9.1 Eos % (Auto) 4.1 Baso % (Auto) 0.4 Neut # (Auto) 3.87 Lymph # (Auto) 1.00 [place] # (Auto) 0.50 Eos # (Auto) 0.23 Baso # (Auto) 0.02 Abs Immat Gran (auto) 0.01 Imm/Tot Granulo (auto) 0.2 INR 2.06 H VBG pH 7.411 VBG pCO2 61 H* VBG pO2 28.1 VBG HCO3 39 H Sodium 138 Potassium 4.0 3.9 Chloride 94 L Carbon Dioxide 39 H Anion Gap 5 L BUN 26 Creatinine 1.4 Estimated Creat Clear 34.00 Estimated GFR 40 Glucose 152 H Calcium 8.1 L Ionized Calcium Reymundo 1.03 L Magnesium 1.8 Lab Acknowledgement Blood culture collected 04/07/2023 at 2:40 p.m. preliminary result is Finegoldia spp. (formerly peptostreptococcus spp.).
[2023-04-11 10:39] VITALS: BP 128/81; PULSE 89; RESP 20; TEMP 36; O2SAT 88
[2023-04-11] MEDS: FUROSEMIDE 10 MG/ML inj 40 MG IVP ×2 (12:07→20:57)
[2023-04-11 13:55] LABS: Vitamin D 25 Hydroxy* 23 ng/mL (30-80)
[2023-04-11 15:00] VITALS: BP 123/72; PULSE 68; RESP 20; TEMP 35.4; O2SAT 94
--- NOTE | 2023-04-11 17:14 | PC.NURSE ---
Addendum entered by Jayne Montoya RN 04/11/23 19:03: Standing order PRN colace for difficulty having BM, stool hard and pasty. Original Note: Pt alert and oriented, pleasant. Pt up with PT/OT, stand and pivot to commode with 1-2 assist. Requires assistance to maneuver L leg. Patient continent of bowels, catheter in place and patent. VSS, tolerating room air during shift, not requiring O2 to be bled into CPAP. Patient reported pain in L lower leg after therapy, managed per PRN interventions in MAR with verbalized improvement. Patient resting comfortably at end of shift.
[2023-04-11] MEDS: WARFARIN 2.5 MG TABLET PO (17:42)
[2023-04-11 19:00] VITALS: BP 117/62; PULSE 74; RESP 18; TEMP 35.8; O2SAT 89
[2023-04-11] MEDS: ATORVASTATIN CALCIUM 40 MG TABLET 80 MG PO (20:57)
[2023-04-11] MEDS: SODIUM CHLORIDE 0.9 % (FLUSH) 10 ML SYRINGE 5 ML IVF (20:59)
[2023-04-11 23:00] VITALS: BP 115/70; PULSE 79; RESP 18; TEMP 36.1; O2SAT 90
[2023-04-12] VITALS (7 sets, daily range): BP systolic 113–130; BP diastolic 74–97; PULSE 60–82; RESP 16–20; TEMP 35.7–37.1; O2SAT 89–92
[2023-04-12] MEDS: NICOTINE 21 MG PATCH 1 PATCH TRANSDERMA (01:58)
--- NOTE | 2023-04-12 05:22 | PC.NURSE ---
Alert and oriented x 4. Denies any pain, shortness of breath or chest pain. BLE edema 1+ pitting. CPAP used while sleeping, patient able to maintain O2 sats 90% or greater throughout the night on room air. [place] catheter patent, draining straw colored urine. Redness under pannus and bilateral breasts continues, area cleansed well with soapy water, dried and creams applied per orders.
[2023-04-12 07:07] LABS: HCO3 VBG 33 mmol/L (21-28); Ionized Calcium* 1.01 mmol/L (1.11-1.30); PCO2 VBG 54 mmHG (40-50); PO2 VBG 43.1 mmHG (25-47); pH VBG 7.402 (7.32-7.43)
[2023-04-12 07:27] LABS: INR 1.93 (0.91-1.10)
[2023-04-12 07:33] LABS: Chloride* 98 mmol/L (96-114)
[2023-04-12 07:34] LABS: Potassium* 3.7 mmol/L (3.6-5.1); Sodium* 139 mmol/L (135-149)
[2023-04-12 07:36] LABS: Anion Gap 7 mEq/L (7-15); Carbon Dioxide* 34 mmol/L (20-32); Creatinine* 1.6 mg/dL (0.5-1.5); Est. Creatinine Clearance* 29.75; Estimated Glomerular Filt Rate 34 ml/min
[2023-04-12 07:37] LABS: Blood Urea Nitrogen* 29 mg/dL (7-30); Glucose* 161 mg/dL (60-115)
--- NOTE | 2023-04-12 08:27 | PC.NURSE ---
Late Entry for 04/12/2023 0700: Patient pleasant, alert and oriented. Patient remained in bed all evening and slept good through night. Repositioned per patient request. Denied?pain on assessment but reported pain in her left lower leg with repositioning. Patient also reported neuropathy pain in?bottoms of feet when touched. Indwelling catheter patent and draining suzanna colored urine. Occasional fine flecks of red sediment noted in catheter tubing. VSS. ?
[2023-04-12] MEDS: TIZANIDINE HCL 4 MG TABLET PO (08:43)
[2023-04-12] MEDS: ACETAMINOPHEN 500 MG TABLET 1000 MG PO (08:43)
[2023-04-12] MEDS: 0.9 % SODIUM CHLORIDE 250 ml IV (09:35)
[2023-04-12] MEDS: acetaZOLAMIDE 250 MG TABLET PO (09:36)
[2023-04-12] MEDS: METOPROLOL SUCCINATE (XL) 100 MG TAB 200 MG PO (09:36)
[2023-04-12] MEDS: ASPIRIN 81 MG TABLET EC PO (09:37)
[2023-04-12] MEDS: dilTIAZem 240 MG CAP (CD) PO (09:37)
[2023-04-12] MEDS: EMPAGLIFLOZIN 10 MG TABLET PO (09:37)
[2023-04-12] MEDS: POTASSIUM CHLORIDE 10 MEQ CAPSULE ER 20 MEQ PO (09:37)
[2023-04-12] MEDS: MAGNESIUM OXIDE 400 MG TABLET PO (09:38)
[2023-04-12] MEDS: GABAPENTIN 300 MG CAPSULE PO ×2 (09:38→20:43)
[2023-04-12] MEDS: FUROSEMIDE 10 MG/ML inj 40 MG IVP (09:38)
[2023-04-12] MEDS: CALCIUM CARBONATE 500 MG CHEW PO ×2 (09:38→20:43)
[2023-04-12] MEDS: CLOTRIMAZOLE 1 % CREAM 1 APPLIC TOPICAL ×2 (15:01→20:43)
[2023-04-12] MEDS: TRIAMCINOLONE ACETONIDE CREAM 0.1 % 1 APPLIC TOPICAL ×2 (15:01→20:43)
--- NOTE | 2023-04-12 15:01 | PM.IMPN1 ---
Progress Note: A&P Assessment and plan (1) Pulmonary hypertension: Problem details: Patient presented with decompensated HFpEF likely secondary to pulmonary HTN and worsened lymphedema (see below). - Transthoracic echocardiogram 02/11/2023: 1. Normal LV size, thickness. EF 55-60%. No regional wall motion abnormalities. 2. RV normal size. 3. Moderate to severe biatrial enlargement. 4. Trace tricuspid regurgitation. Elevated right ventricular systolic pressure consistent with severe pulmonary hypertension. 5. Findings similar to previous echocardiogram on 06/21/2022. Status: Acute (2) Chronic diastolic heart failure: Problem details: Noted. Likely secondary to severe pulmonary HTN as above. - 04/07/2023: double dose of bumetanide from 3 mg once daily to 3 mg twice daily for now, and monitor laboratory studies -04/08/23: Diuresing well, continue bumex 3mg BID -04/09/23: Continues to diurese well, but bicarb is rising. At risk for contraction alkalosis. Continue bumex 3mg BID with daily BMP and VBG -04/10/23: Diuresis has stalled. Now with contraction alkalosis. Will stop bumex and trial IV lasix 60mg BID - 04/11/23: 04/07 Wt 170kg, 04/10 wt 156 kg, today wt 152 kg. Improving. Acetazolamide was started yesterday. Lasix now ordered BID, last night's dose not given due to EMR confusion. Continue diuresis. Continue donald while doing aggressive diuresis. Continue to monitor creatinine and electrolytes daily. - 04/12: Wt stable at 153 kg, lungs clear, legs less edematous, Cr increasing. Stop acetazolamide, change lasix to oral dosing in preparation for discharge, possibly tomorrow. Since we are no longer aggressively diuresing, discontinue donald today and do a voiding trial. Status: Acute (3) Cardiorenal syndrome: Problem details: Possible cardiorenal. Backing off on diuresis due to increased creatinine today. Status: Acute (4) Chronic acquired lymphedema: Problem details: - Utilizes lymphedema leg pumps twice daily at home. - Requires lymphedema wraps with support from home care services from time to time. - 04/07/2023: Acutely worse due to broken recliner chair and inability to elevate her legs for the past 5 days; recliner chair was fixed on 04/07/2023 before she came into the hospital for assessment. -improving, start lymphedema wraps. Status: Acute (5) Acute hypoxic respiratory failure: Problem details: Patient initially required supplemental O2, but then was weaned to RA for a day. 04/09/23 she is again requiring supplemental O2 Initially suspected due to pulmonary edema and underlying acute on chronic diastolic heart failure. Now diuresing, but BC is positive with unclear source. Also with high risk for obesity hypoventilation. -Continue supplemental O2, weaning as able -Repeat CXR 04/09/23 with bibasilar atelectasis, less likely PNA with no cough or fever -VBG with rising pCO2, continue to monitor - 04/11/23 suspect this is acute on chronic hypoxic and hypercapnic respiratory failure as this is compensated hypercapnia. I suspect obesity hypoventilation syndrome and sleep apnea. Monitor for daytime somnolence. Status: Acute (6) Positive blood culture: Problem details: Gram+ cocci in clusters in anaerobic culture. Afebrile and no leukocytosis. Unclear if this is contaminant or represents a true infection. UC without growth, no obvious pneumonia. Consider skin source with dermatitis of perineum and less likely septic arthritis with indwelling hardware and pain of left hip and knee. If spp is concerning (not likely contaminant) will need echo. -Continue vancomycin (started 04/08/23 at 2100) with pharmacy assistance -Repeat BC until negative 72H -blood culture grew out Finegoldia spp. (formerly peptostreptococcus spp.). I suspect this is a contaminant. She has remained afebrile and without leukocytosis. No obvious source of infection. Stop vancomycin. No further workup. Status: Acute (7) Insulin-requiring or dependent type II diabetes mellitus: Problem details: - 04/12 poc glucoses now in the 200s. Continue glimiperide and SSI. Increase glargine. Status: Acute (8) Diabetic peripheral neuropathy associated with type 2 diabetes mellitus: Problem details: - due to decreased creatinine clearance, decreased dose of gabapentin to 300 mg twice daily Status: Acute (9) Failure to thrive in adult: Problem details: Appreciate PT/OT. Current recommendation is for SNF, but patient has history of very negative experience at SNF and refusing placement. Encouraged patient to work hard in PT/OT today to see if she can be safe for homegoing tomorrow, however, I suspect she will need SNF based on her current level of debility. Status: Acute (10) Physical debility: Problem details: Noted. Appreciate physical therapy Status: Acute (11) Physical deconditioning: Status: Acute (12) Chronic kidney disease, stage III (moderate): Problem details: - 04/07/2023: monitor labs closely as we intervene -04/08/23: Suspect a component of cardiorenal- improving with diuresis Status: Acute (13) Yeast dermatitis: Problem details: - 04/07/2023: In intertriginous folds - 1:1 compound of clotrimazole 1% and triamcinolone 0.1% creams applied twice daily to affected areas - temporary Donald catheter to protect the skin in the perineum that is affected by the yeast dermatitis as well as incontinence associated dermatitis - Dermatitis improving. Voiding trial today Status: Acute (14) Urinary incontinence: Problem details: - 04/07/2023: given the incontinence associated dermatitis and yeast dermatitis in the perineum, will need temporary placement of Donald catheter. - will need to consider safe, long-term treatment plan given her debility and already demonstrated inability to care for herself in this way. - Voiding trial today Status: Acute (15) Incontinence associated dermatitis: Problem details: - secondary to chronic urinary incontinence and inability for her to care for herself Status: Acute (16) Hypokalemia: Problem details: Likely due to diuresis. Now resolved after replacement, continue to monitor while on aggressive diuresis. Status: Resolved (17) Alkalosis, metabolic: Problem details: Contraction alkalosis likely due to diuresis. Still with ongoing fluid overload. Added acetazolamide to diuretics (ordered 250mg BID for 4 doses) on 04/10/2023. - Backing off on diuresis today, as above Status: Acute (18) Hypocalcemia: Problem details: Unclear etiology. Will check PTH and continue to replace and monitor Status: Acute Plan INR within goal of 2-3 for paroxysmal atrial fibrillation. Continue to monitor while in the hospital. Time Spent With Patient Total time spent: Today I spent 40 minutes rounding on the patient. Greater than 50% included discussing care with the team, reviewing data, updating and managing the care plan. Subjective Time Seen by Provider: 07:35 Date Seen: 04/12/23 Interval history: I reviewed the plan of care with Sydnie this morning. She has diuresed well and feels stronger every day. According to PT, she is still not safe for homegoing and will benefit from a rehab stay. Sydnie is resistant to this and insists that she is going home tomorrow. When I point out that this is unsafe in her current condition, she dismisses that. She also does not want me to take out the donald catheter today, but wants it to stay in until she leaves. She says she doesn't need a trial of voiding and getting to the bathroom. Exam Narrative: Exam Narrative: General: No acute distress. Awake, alert, oriented. No pallor. No jaundice. Morbidly obese. Oropharynx: Clear. Mucous membranes moist. Cardiovascular: Regular rate and rhythm. No murmurs, gallops, or rubs. Respiratory: Clear to auscultation bilaterally. No crackles or wheezes. Abdomen: Bowel sounds present. Soft, nondistended, nontender. Genitourinary: Dermatitis improving. Extremities: Massively large legs, lymphedema. 2+ edema to knees. Feet are much less edematous than yesterday. Const: Vital Signs, click to edit/add: Vital Signs - 24 hr 04/11/23 19:00 04/11/23 23:00 04/11/23 23:00 Temperature 96.4 F L 97.0 F L Pulse Rate [Right Pulse Oximeter] 74 79 Respiratory Rate 18 18 18 Blood Pressure [Le ft Arm] Blood Pressure [Ri ght Arm] 117/62 115/70 Pulse Oximetry 89 90 90 Oxygen Delivery Me thod Room Air Room Air Room Air 04/12/23 03:00 04/12/23 07:00 04/12/23 07:00 Temperature 97.0 F L 96.2 F L Pulse Rate [Right Pulse Oximeter] 63 69 Respiratory Rate 16 20 20 Blood Pressure [Le ft Arm] Blood Pressure [Ri ght Arm] 113/93 H 130/97 H Pulse Oximetry 91 89 89 Oxygen Delivery Me thod Room Air Room Air Room Air 04/12/23 11:00 Temperature 97.4 F L Pulse Rate [Right Pulse Oximeter] 60 Respiratory Rate 16 Blood Pressure [Le ft Arm] 118/74 Blood Pressure [Ri ght Arm] Pulse Oximetry 92 Oxygen Delivery Me thod CPAP Labs Labs: Laboratory Results - last 24 hr 04/12/23 06:50 INR 1.93 H VBG pH 7.402 VBG pCO2 54 H VBG pO2 43.1 VBG HCO3 33 H Sodium 139 Potassium 3.7 Chloride 98 Carbon Dioxide 34 H Anion Gap 7 BUN 29 Creatinine 1.6 H Estimated Creat Clear 29.75 Estimated GFR 34 Glucose 161 H Calcium 8.0 L Ionized Calcium Reymundo 1.01 L
--- NOTE | 2023-04-12 18:19 | PC.NURSE ---
Pt alert and oriented, cooperative and pleasant during shift. Pt able to ambulate with assistance from PT/OT and take a shower with OT assistance. VSS, tolerating room air, pt applies CPAP independently for sleep. Pt continent of bowels, indwelling catheter removed per MD order. Pt incontinent of bladder which is patient reported baseline. SHABANA bandages added to bilaterally lower extremities per MD order. Pt denies pain at rest, requested pain relief medication in preparation for PT/OT appointments. Interventions given per AUG, pt verbalized comfort. Patient resting comfortably at end of shift.
[2023-04-12] MEDS: WARFARIN 2.5 MG TABLET PO (18:42)
[2023-04-12] MEDS: ATORVASTATIN CALCIUM 40 MG TABLET 80 MG PO (20:43)
[2023-04-13] MEDS: NICOTINE 21 MG PATCH 1 PATCH TRANSDERMA (00:15)
[2023-04-13] MEDS: ACETAMINOPHEN 500 MG TABLET 1000 MG PO (02:39)
[2023-04-13] MEDS: TIZANIDINE HCL 4 MG TABLET PO (02:40)
[2023-04-13 03:00] VITALS: BP 108/52; PULSE 70; RESP 16; TEMP 36.2; O2SAT 92
--- NOTE | 2023-04-13 06:19 | PC.NURSE ---
End of shift report [id number]: Patient alert and oriented, pain reported to left hip during repositioning. Tylenol and tizanidine administered with effective results. Incontinent of urine, education provided on importance of patient informing nursing when pad is wet to help prevent further skin breakdown. Patient placed call light on x 2 after 0000 to report wet pad, angela area cleansed well and new pad applied. BLE +1 pitting edema. Denies any shortness of breath or chest pain. Bilateral groin, under pannus and under bilateral breasts continue with mild redness, areas cleansed well and dried, creams applied per order.
[2023-04-13 07:00] VITALS: BP 112/67; PULSE 61; RESP 18; TEMP 36.5; O2SAT 89
[2023-04-13] MEDS: ASPIRIN 81 MG TABLET EC PO (08:39)
[2023-04-13] MEDS: FUROSEMIDE 20 MG TABLET 40 MG PO (08:39)
[2023-04-13] MEDS: CLOTRIMAZOLE 1 % CREAM 1 APPLIC TOPICAL (08:40)
[2023-04-13] MEDS: CALCIUM CARBONATE 500 MG CHEW PO (08:40)
[2023-04-13] MEDS: dilTIAZem 240 MG CAP (CD) PO (08:41)
[2023-04-13] MEDS: GABAPENTIN 300 MG CAPSULE PO (08:41)
[2023-04-13] MEDS: MAGNESIUM OXIDE 400 MG TABLET PO (08:41)
[2023-04-13] MEDS: EMPAGLIFLOZIN 10 MG TABLET PO (08:41)
[2023-04-13] MEDS: METOPROLOL SUCCINATE (XL) 100 MG TAB 200 MG PO (08:41)
[2023-04-13] MEDS: POTASSIUM CHLORIDE 10 MEQ CAPSULE ER 20 MEQ PO (08:42)
[2023-04-13] MEDS: TRIAMCINOLONE ACETONIDE CREAM 0.1 % 1 APPLIC TOPICAL (08:42)
[2023-04-13 09:51] LABS: Ionized Calcium* 1.08 mmol/L (1.11-1.30)
[2023-04-13 10:06] LABS: Chloride* 99 mmol/L (96-114)
[2023-04-13 10:07] LABS: Potassium* 3.6 mmol/L (3.6-5.1); Sodium* 140 mmol/L (135-149)
[2023-04-13 10:09] LABS: Anion Gap 10 mEq/L (7-15); Carbon Dioxide* 31 mmol/L (20-32); Creatinine* 1.6 mg/dL (0.5-1.5); Est. Creatinine Clearance* 29.75; Estimated Glomerular Filt Rate 34 ml/min
[2023-04-13 10:10] LABS: Blood Urea Nitrogen* 33 mg/dL (7-30); Calcium* 8.7 mg/dL (8.4-10.6); Glucose* 199 mg/dL (60-115)
[2023-04-13 11:00] VITALS: BP 124/74; PULSE 69; RESP 18; TEMP 36.4; O2SAT 88
[2023-04-13] MEDS: 0.9 % SODIUM CHLORIDE 250 ml IV (11:18)
--- NOTE | 2023-04-13 11:21 | PC.SOCIAL ---
Discharge planning: Met with pt who confirms she is planing to discharge home today and is not interested in a short term rehab stay. PT has had a negative experience at a rehab stay before and will only agree to discharge home. Pt states she is safe to discharge home and is at her baseline for caring fro herself at home. Pt states she has all the equipment needed at home and typically sleeps in her recliner with her legs elevated. Pt states the reason she ended up needing hospitalization is because her chair broke and her legs were not elevated. Pt reports the recliner has been fixed. Pt states she has a home health team through the [facility] that provides a Nurse Practitioner, a physician, PT and OT to her home to assist her at home. Pt wants these services resumed at discharge and requested this be arranged with [facility]. Pt states her sister will pick her up in her own vehicle for discharge home. Pt has no concerns about being able to get in and out of the car. Called [facility] and spoke with patient registration representative who states she will have a charge nurse call back with what is needed to resumer care at home. The [facility] and the [facility] are somewhat connected in that the [facility] provides the RN, PT and OT to home. THe physician and nurse practitioner are part of the [facility]. workers compensation claims specialist awaiting call back from [facility] regarding what is needed to be sent and where that information needs to be sent. workers compensation claims specialist to follow up as needed.
--- NOTE | 2023-04-13 11:46 | P.DS_ITS ---
DS: Providers Provider Time Seen by Provider: 10:30 Date Seen: 04/13/23 Date of admission: 04/09/23 08:48 Primary care physician: Not a Local Provider Admitting Clinician: Joe Diana MD Consults: 04/07/23 19:11 Consult to Nutrition [CONS] Routine Comment: Reason for consult:: Nutritional Consult Comment: lymphedema; DMT2 Consult to Physical Therapy [CONS] Routine Comment: Reason(s) for PT Consult:: Evaluate and Treat Any Restrictions?:: No Restrictions Consult to Wool Fleece Sorter [CONS] Routine Comment: Reason for Consult:: Discharge Planning Needs 04/07/23 19:13 Consult to Occupational Therapy [CONS] Routine Comment: Reason(s) for OT Consult:: Evaluate and Treat Any Restrictions?:: No Restrictions Attending Physician on discharge: Vickie Greenwood MD DS: Diagnosis Discharge Diagnosis (1) Hypocalcemia: Status: Acute Problem details: Unclear etiology. PTH is pending. (2) Alkalosis, metabolic: Status: Resolved Problem details: Contraction alkalosis likely due to diuresis. Added acetazolamide to diuretics (ordered 250mg BID for 4 doses) on 04/10/2023. (3) Hypokalemia: Status: Resolved Problem details: Likely due to diuresis. Now resolved after replacement, continue to monitor while on aggressive diuresis. (4) Positive blood culture: Status: Resolved Problem details: Gram+ cocci in clusters in anaerobic culture. Afebrile and no leukocytosis. Unclear if this is contaminant or represents a true infection. UC without growth, no obvious pneumonia. Consider skin source with dermatitis of perineum and less likely septic arthritis with indwelling hardware and pain of left hip and knee. If spp is concerning (not likely contaminant) will need echo. -Continue vancomycin (started 04/08/23 at 2100) with pharmacy assistance -Repeat BC until negative 72H -blood culture grew out Finegoldia spp. (formerly peptostreptococcus spp.). I suspect this is a contaminant. She has remained afebrile and without leukocytosis. No obvious source of infection. Stop vancomycin. No further workup. (5) Cardiorenal syndrome: Status: Acute Problem details: Possible cardiorenal. Backing off on diuresis due to increased creatinine 04/12/23. Cr stable at 1.6 on 04/13/23. (6) Incontinence associated dermatitis: Status: Acute Problem details: - secondary to chronic urinary incontinence and inability for her to care for herself (7) Urinary incontinence: Status: Acute Problem details: - 04/07/2023: given the incontinence associated dermatitis and yeast dermatitis in the perineum, will need temporary placement of Donald catheter. - will need to consider safe, long-term treatment plan given her debility and already demonstrated inability to care for herself in this way. - Voiding trial 04/12/23 went well. (8) Yeast dermatitis: Status: Acute Problem details: - 04/07/2023: In intertriginous folds - 1:1 compound of clotrimazole 1% and triamcinolone 0.1% creams applied twice daily to affected areas - temporary Donald catheter to protect the skin in the perineum that is affected by the yeast dermatitis as well as incontinence associated dermatitis - Dermatitis improving. Donald d/c'd 04/12/23. (9) Chronic kidney disease, stage III (moderate): Status: Acute Problem details: - 04/07/2023: monitor labs closely as we intervene -04/08/23: Suspect a component of cardiorenal- improving with diuresis (10) Insulin-requiring or dependent type II diabetes mellitus: Status: Chronic Problem details: Resume outpatient medications (11) Chronic obstructive pulmonary disease: Status: Chronic (12) Physical deconditioning: Status: Acute (13) Physical debility: Status: Acute Problem details: Noted. Appreciate physical therapy (14) Failure to thrive in adult: Status: Acute Problem details: Appreciate PT/OT. Able to ambulate with walker and SBA. Patient refuses SNF. Homegoing today. (15) Diabetic peripheral neuropathy associated with type 2 diabetes mellitus: Status: Acute Problem details: - due to decreased creatinine clearance, decreased dose of gabapentin to 300 mg twice daily (16) Chronic acquired lymphedema: Status: Acute Problem details: - Utilizes lymphedema leg pumps twice daily at home. - Requires lymphedema wraps with support from home care services from time to time. - 04/07/2023: Acutely worse due to broken recliner chair and inability to elevate her legs for the past 5 days; recliner chair was fixed on 04/07/2023 before she came into the hospital for assessment. -improving, start lymphedema wraps. (17) Anticoagulation goal of INR 2 to 3: Status: Chronic Problem details: for paroxysmal afib (18) Pulmonary hypertension: Status: Chronic Problem details: Patient presented with decompensated HFpEF likely secondary to pulmonary HTN and worsened lymphedema (see below). - Transthoracic echocardiogram 02/11/2023: 1. Normal LV size, thickness. EF 55-60%. No regional wall motion abnormalities. 2. RV normal size. 3. Moderate to severe biatrial enlargement. 4. Trace tricuspid regurgitation. Elevated right ventricular systolic pressure consistent with severe pulmonary hypertension. 5. Findings similar to previous echocardiogram on 06/21/2022. (19) Chronic diastolic heart failure: Status: Acute Problem details: Noted. Likely secondary to severe pulmonary HTN as above. - 04/07/2023: double dose of bumetanide from 3 mg once daily to 3 mg twice daily for now, and monitor laboratory studies -04/08/23: Diuresing well, continue bumex 3mg BID -04/09/23: Continues to diurese well, but bicarb is rising. At risk for contraction alkalosis. Continue bumex 3mg BID with daily BMP and VBG -04/10/23: Diuresis has stalled. Now with contraction alkalosis. Will stop bumex and trial IV lasix 60mg BID - 04/11/23: 04/07 Wt 170kg, 04/10 wt 156 kg, today wt 152 kg. Improving. Acetazolamide was started yesterday. Lasix now ordered BID, last night's dose not given due to EMR confusion. Continue diuresis. Continue donald while doing aggressive diuresis. Continue to monitor creatinine and electrolytes daily. - 04/12: Wt stable at 153 kg, lungs clear, legs less edematous, Cr increasing. Stop acetazolamide, change lasix to oral dosing in preparation for discharge, possibly tomorrow. Since we are no longer aggressively diuresing, discontinue donald today and do a voiding trial. (20) Acute hypoxic respiratory failure: Status: Resolved Problem details: Patient initially required supplemental O2, but then was weaned to RA for a day. 04/09/23 she is again requiring supplemental O2 Initially suspected due to pulmonary edema and underlying acute on chronic diastolic heart failure. Now diuresing, but BC is positive with unclear source. Also with high risk for obesity hypoventilation. -Continue supplemental O2, weaning as able -Repeat CXR 04/09/23 with bibasilar atelectasis, less likely PNA with no cough or fever -VBG with rising pCO2, continue to monitor - 04/11/23 suspect this is acute on chronic hypoxic and hypercapnic respiratory failure as this is compensated hypercapnia. I suspect obesity hypoventilation syndrome and sleep apnea. Monitor for daytime somnolence. (21) Secondary hyperparathyroidism: Status: Acute Problem details: PTH high, calcium low Suspect secondary to CKD. Follow up with PCP as outpatient. (22) Paroxysmal atrial fibrillation: Status: Chronic (23) Vitamin D deficiency: Status: Acute DS: Summary Hospital Course Hospital Course: This is a 72-year-old female with known history of diabetes mellitus, chronic kidney disease stage 3, morbid obesity, lymphedema, heart failure with preserved ejection fraction, and pulmonary hypertension who presented to the emergency department via EMS for concerns of worsening bilateral lower extremity edema and inability to care for herself at home. She lives independently in residential in over the last 2 months had had worsening lower extremity edema. Also 5 days prior to presentation her recliner broke and her feet have been in a dependent position since then. She had not had any fevers, rigors, diaphoresis, cough for dyspnea. She did have urinary incontinence that is chronic and was unable to get up to the bathroom. She was not performing peroneal cares and is noted have a dermatitis secondary to this upon presentation. She also had massive lymphedema of both lower extremities and acute hypoxic respiratory failure. She had a recent echocardiogram in January that was essentially unchanged from 2021. She was admitted for diuresis, perineal cares, oxygen supplementation, PT and OT. She also had a Donald catheter while getting diuresed. She did well and made improvements. She was briefly on SCDs only might for contraction alkalosis associated with the diuresis. Her creatinine has remained fairly stable 1.5 on admission and 1.6 on discharge. She does have some element of cardiorenal syndrome. With diuresis her lower extremity edema has improved, but she continues to have chronic lower extremity lymphedema. She will need lymphedema wraps for this as an outpatient and I have ordered home health to see her for this purpose. She made progress with PT and OT especially as she was diuresed, but the recommendation was for her to go to a skilled nurs ing facility and she declined. She is discharged home today in stable condition. I have recommended that she be seen by her primary care provider within the next 5-7 days and have labs through home health has below. Time Spent with Patient Time attestation: Total time spent providing and/or coordinating discharge services: 45 minutes to coordinate with the patient, secondary social studies teacher for home health care, PT and OT for home going needs and healthcare needs. Exam Narrative: Exam Narrative: General: No acute distress. Awake, alert, oriented. No pallor. No jaundice. Morbidly obese. Cardiovascular: Regular rate and rhythm. No murmurs, gallops, or rubs. Respiratory: Clear to auscultation bilaterally. No crackles or wheezes. Abdomen: Bowel sounds present. Soft, nondistended, nontender. Extremities: Massively large legs, lymphedema. SHABANA wraps in place bilaterally. Const: Vital Signs, click to edit/add: Vital Signs - 24 hr 04/12/23 15:00 04/12/23 15:00 04/12/23 19:00 Temperature 97.6 F 97.5 F L Pulse Rate [Right Pulse Oximeter] 79 82 Respiratory Rate 20 20 18 Blood Pressure [Le ft Arm] 128/74 122/77 Blood Pressure [Ri ght Arm] Blood Pressure [le ft forearm] Pulse Oximetry 90 90 90 Oxygen Delivery Me thod Room Air Room Air Room Air 04/12/23 22:32 04/12/23 23:00 04/13/23 03:00 Temperature 98.7 F 97.2 F L Pulse Rate [Right Pulse Oximeter] 82 70 Respiratory Rate 20 16 Blood Pressure [Le ft Arm] 108/52 L Blood Pressure [Ri ght Arm] 117/80 Blood Pressure [le ft forearm] Pulse Oximetry 91 90 92 Oxygen Delivery Me thod Room Air Room Air Room Air 04/13/23 07:00 04/13/23 07:00 04/13/23 07:00 Temperature 97.7 F Pulse Rate [Right Pulse Oximeter] 61 61 Respiratory Rate 18 18 18 Blood Pressure [Le ft Arm] Blood Pressure [Ri ght Arm] Blood Pressure [le ft forearm] 112/67 Pulse Oximetry 89 89 Oxygen Delivery Me thod Room Air CPAP Room Air CPAP DS: Data Data Completed and Pending Completed studies during hospitalization: Ordering Physician: Rossana Ahumada M.D. Date of Service: 04/07/23 Procedure(s): XR chest 1V portable Accession Number(s): [id number] cc: Rossana Ahumada M.D.; Provider,Not a Local~ For Patients: As a result of the Cures Act, medical imaging exams and procedure reports are released immediately into your electronic medical record. You may view this report before your referring provider. If you have questions, please contact your health care provider. Indication: Hypoxia Technique: Chest 1 view Comparison: Chest x-ray 07/14/2019 Findings/Impression: Cardiovascular and mediastinum: Globular cardiomegaly with left-sided pacemaker with lead overlying the expected right ventricle. Atherosclerosis. Lungs and pleural space: Prominence of the pulmonary arteries with bilateral interstitial opacities suggestive of pulmonary edema. Trace retrocardiac density, possibly atelectasis. Trace left effusion not excluded. No pneumothorax. Bones and soft tissues: No acute findings. Dictated by Vern Valdes MD @ 04/07/2023 3:26:05 PM (Electronically Signed) Ordering Physician: Omaira Delgado MD Date of Service: 04/09/23 Procedure(s): XR chest 1V portable Accession Number(s): [id number] cc: Omaira Delgado MD; Provider,Not a Local~ For Patients: As a result of the s Act, medical imaging exams and procedure reports are released immediately into your electronic medical record. You may view this report before your referring provider. If you have questions, please contact your health care provider. INDICATION: HYPOXIA, POSITIVE BC, EVAL FOR PNA TECHNIQUE: Chest 1 views. COMPARISON: April 07, 2023 IMPRESSION: Prominent cardiomegaly with increased central vascular congestion and interstitial prominence concerning for pulmonary edema. Bibasilar airspace opacities which may represent atelectasis or pneumonia. No evidence of effusion or pneumothorax. Single lead pacemaker again noted. Dictated by Mauricio Cummings MD @ 04/09/2023 10:20:51 AM (Electronically Signed) Labs on day of discharge: Labs from last 24 hours 04/13/23 04/10/23 09:38 09:15 Sodium 140 Potassium 3.6 Chloride 99 Carbon Dioxide 31 Anion Gap 10 BUN 33 H Creatinine 1.6 H Estimated Creat Clear 29.75 Estimated GFR 34 Glucose 199 H Calcium 8.7 Ionized Calcium Reymundo 1.08 L PTH Intact pmol/L 84 H Calcium (PTH Intact) 8.5 L Preliminary micro results at discharge 04/10/23 11:20 Blood Culture - Preliminary Blood NO GROWTH AFTER 72 HOURS 04/07/23 14:40 Blood Culture - Preliminary Blood 04/09/23 10:20 Blood Culture - Preliminary Blood NO GROWTH AFTER 96 HOURS 04/09/23 10:20 Blood Culture - Preliminary Blood NO GROWTH AFTER 96 HOURS Discharge Plan Discharge Disposition: Home, Self-Care Date of Admission: 04/09/23 08:48 Attending Provider on Discharge: Vickie Greenwood Primary Care Provider: Provider,Not a Local Condition: Improved Anticipated Discharge Date/Time: 04/13/23 11:53 Discharge Medications: New calcium carbonate 200 mg calcium (500 mg) Tablet,Chewable 500 mg PO BID Qty: 60 0RF furosemide 20 mg Tablet 40 mg PO DAILY@0800 Qty: 30 0RF triamcinolone acetonide 0.1 % Cream 1 applic topical BID Qty: 15 0RF magnesium oxide 400 mg (241.3 mg magnesium) Tablet 400 mg PO DAILY Qty: 30 0RF clotrimazole 1 % Cream 1 applic topical BID Qty: 15 0RF Continued atorvastatin 80 mg tablet 80 mg PO HS diltiazem HCl 240 mg capsule,extended release 24hr 240 mg PO DAILY metoprolol succinate 200 mg tablet extended release 24 hr 200 mg PO DAILY warfarin 2.5 mg tablet 2.5 mg PO QPM bumetanide 1 mg tablet 3 mg PO DAILY albuterol sulfate 90 mcg/actuation HFA aerosol inhaler 2 puff INHALATION Q4H PRN (Reason: dyspnea) insulin glargine [Lantus Solostar U-100 Insulin] 100 unit/mL (3 mL) insulin pen 25 unit subcut DAILY Jardiance 10 mg tablet 10 mg PO DAILY aspirin [Adult Aspirin Regimen] 81 mg tablet,delayed release (DR/EC) 81 mg PO DAILY acetaminophen [Tylenol Extra Strength] 500 mg tablet 1,000 mg PO Q6H PRN cholecalciferol (vitamin D3) 25 mcg (1,000 unit) capsule 25 mcg PO DAILY calcium citrate-vitamin D3 [Calcium Citrate + D] 315 mg-5 mcg (200 unit) tablet 1 tab PO DAILY potassium chloride 20 mEq tablet extended release 20 meq PO DAILY Changed gabapentin 300 mg capsule 300 mg PO BID Qty: 60 0RF Discharge Orders: Discharge Order (Routine); Ordered 04/13/23 Ordered By: Vickie Greenwood Additional Instructions: Home healthcare for lymphedema wraps, PT, OT, home health aide for bathing, INR in 2 days, BMP in 5-7 days. Weight yourself daily at the same time every day and call your provider if: - your weight goes up 2 lbs overnight - 5 lbs in a week - you are short of breath - your legs are getting more swollen Activity Level: Activity as Tolerated and Use Walker Discharge Diet: Diabetic, Heart Healthy (2 gm sodium, low fat) and 2000 ml Fluid Restriction Follow Up Appointments: Amarilis Rincon MD [Referring] - (5 days ([facility], home visit)) Provider,Not a Local [Primary Care Provider] - Forms: [employer] Info Instructions
--- NOTE | 2023-04-13 13:51 | PC.NURSE ---
Nursing Care Hours: [id number] Pt this shift calm and cooperative with cares. Up to chair for breakfast. void pad changed x1, Lg BM. IV patent, dc'd at discharge. VSS. Insulin given per sliding scale. SB/1 assist with walker and gait belt to transfer short distance. No c/o pain. Discharge instruction provided, all concerns and questions addressed. Wheeled out to family member vehicle, assisted into car.
== END 2023-04-13 13:34 | disposition home or self-care (01) | DRG 314 ==
LOC: ED 15:09 → MEDSURG 16:41
PROVIDERS: Family Medicine; Admitting Provider Internal Medicine; Emergency Provider Emergency Medicine; Visit Provider Internal Medicine
DX: I27.20 Pulmonary hypertension, unspecified (principal); I50.33 Acute on chronic diastolic (congestive) heart failure; J96.22 Acute and chronic respiratory failure with hypercapnia; J96.21 Acute and chronic respiratory failure with hypoxia; I13.0 Hypertensive heart and chronic kidney disease with heart failure and stage 1 through stage 4 chronic kidney disease, or unspecified chronic kidney disease; E87.3 Alkalosis; Z68.43 Body mass index [BMI] 50.0-59.9, adult; N25.81 Secondary hyperparathyroidism of renal origin; I89.0 Lymphedema, not elsewhere classified; F17.210 Nicotine dependence, cigarettes, uncomplicated; N18.30 Chronic kidney disease, stage 3 unspecified; Z79.4 Long term (current) use of insulin; E11.42 Type 2 diabetes mellitus with diabetic polyneuropathy; R62.7 Adult failure to thrive; R53.81 Other malaise; B37.2 Candidiasis of skin and nail; R32 Unspecified urinary incontinence; L24.A2 Irritant contact dermatitis due to fecal, urinary or dual incontinence; E11.22 Type 2 diabetes mellitus with diabetic chronic kidney disease; E83.51 Hypocalcemia; E87.6 Hypokalemia; J44.9 Chronic obstructive pulmonary disease, unspecified; F32.9 Major depressive disorder, single episode, unspecified; E66.01 Morbid (severe) obesity due to excess calories; G47.33 Obstructive sleep apnea (adult) (pediatric); I48.0 Paroxysmal atrial fibrillation; Z79.01 Long term (current) use of anticoagulants; Z79.84 Long term (current) use of oral hypoglycemic drugs; Z96.653 Presence of artificial knee joint, bilateral; Z96.643 Presence of artificial hip joint, bilateral
CPT/HCPCS: 36415; 51701; 71045; 80048; 80076; 81001; 82306; 82310; 82330; 82803; 82962; 83605; 83735; 83880; 83970; 84100; 84132; 84443; 84484; 85025; 85027; 85379; 85610; 86140; 87040; 87076; 87086; 87181; 93005; 97110; 97116; 97163; 97165; 97530; 97535; 99284; 99285; A9270; G0378; J0610; J1940; J3370; J3475; J7050; J7120; S4990

== ENCOUNTER 2024-08-24 13:10 | Inpatient (IN) | payer MEDICARE, SELFPAY ==
[2024-08-24] VITALS (20 sets, daily range): BP systolic 103–142; BP diastolic 62–88; PULSE 61–78; RESP 12–29; TEMP 36.7; O2SAT 85–98; BMI 57.0; BMI 60.4
--- OUTSIDE RECORDS SUMMARY | 2024-08-24 13:12 | XMS_ITS | Clinical Summary ---
Author Organization [facility] Address [address] [place] [address] Care Team Providers Care Seam Sewer Name Role Phone Shanae Horn CMA Unavailable [phone] Amarilis Rincon MD Unavailable + [phone] Jacquie Haley NP Primary Care Provid er Helena DickensD Unavailable [phone] Sanjay Harrington Unavailable Genevieve Peña Unavailable [phone] Kaitlyn Gerber RESERVATIONS AND TICKETING AGENT Unavailable [phone] Johanne Mix RN Unavailable [facility] Unavailable [phone] Allergies No known active allergies Medications NebulizerIndicati ons:Acute respiratory failure with hypoxia (HC),Moderate persistent reactive airway disease with acute exacerbation Nebulizer, disposable neb kit x 4, reuseable neb kit x 1, mask x 1, filters x 1. Frequency of use: daily; Medication: ALBUTEROL Length of need: 99 months 1 Device 07/06/19 20 Active acetaminophen (TYLENOL EXTRA STRGTH) 500 mg tablet Take 2 Tablets (1,000 mg) by mouth every 8 hours if needed for Pain. Max acetaminophen dose: 3000mg in 24 hrs. 0 09/12/19 23 Active lancetsIndication s:Controlled type 2 diabetes mellitus with diabetic neuropathy, with long-term current use of insulin (HC) As directed. Test blood sugar with lancet 1 times per day, on insulin daily. One lancet needed daily. Hemoglobin A1C 6.6% 06/22/2022 100 Each 2 09/12/19 23 Active amoxicillin (AMOXIL) 500 mg capsuleIndication s:Prophylaxis for chemotherapy-jessa ninfa neutropenia Take 4 capsules (2g) 1 hour prior to Dental Procedures 4 Capsule 08/10/19 24 Active cholecalciferol (Vitamin D) 1,000 unit capsuleIndication s:Vitamin D deficiency Take 1 Capsule (1,000 units) by mouth once daily. 90 Capsule 3 09/09/19 24 Active empagliflozin (Jardiance) 25 mg tabletIndications :Type 2 diabetes mellitus with complication, with long-term current use of insulin (HC) Take 1 Tablet (25 mg) by mouth once daily. To be used by PAP 09/10/19 24 Active bumetanide (BUMEX) 1 mg tabletIndications :Chronic diastolic CHF (congestive heart failure) (HC) Take 3 Tablets (3 mg) by mouth every morning. 270 Tablet 3 10/02/19 24 Active albuterol HFA (PRO-AIR; VENTOLIN; PROVENTIL) 90 mcg/actuation inhalerIndication s:SOB (shortness of breath) Inhale 2 Puffs by mouth every 4 hours if needed for Shortness Of Breath. 1 Each 11 11/17/19 24 Active blood sugar diagnostic (Blood Glucose Test) stripIndications: Controlled type 2 diabetes mellitus with diabetic neuropathy, with long-term current use of insulin (HC) Test 1 times per day, on insulin daily. Hemoglobin A1C 6.6% 06/22/2022. Dispense blood glucose test strips covered by insurance and compatible with OneTouchUltra2 glucometer, Patient has OneTouchUltra2 glucometer already. 100 Each 2 11/27/19 24 Active magnesium glycinate 100 mg magnesium capIndications:Hy pomagnesemia Take 400 mg by mouth. 12/04/19 24 Active potassium chloride (K-TAB) 20 mEq extended-release tabletIndications :Acute on chronic heart failure with preserved ejection fraction (HC) Take 2 Tablets (40 mEq) by mouth two times daily with meals. 180 Tablet 3 12/25/19 24 Active pen needle (BD Insulin Pen Needle UF) 29 gauge x 1/2 (disposable insulin pen needle)Indication s:Type 2 diabetes mellitus with complication, without long-term current use of insulin (HC) USE DIRECTED with insulin. 100 Each 3 01/22/20 24 Active semaglutide (Ozempic) 2 mg/3 mL subcutaneous penIndications:Ty pe 2 diabetes mellitus with complication, with long-term current use of insulin (HC) Inject 0.25 mg subcutaneous once weekly. 3 mL 05/31/20 24 Active metoprolol succinate SR (TOPROL XL) 200 mg Sustained-Release tabletIndications :Paroxysmal atrial fibrillation (HC) Take 1 Tablet (200 mg) by mouth once daily. Patient lost Rx, please send new bottle. 90 Tablet 3 06/07/20 24 Active nystatin 100,000 unit/gram creamIndications: Yeast dermatitis Apply topically to affected area(s) two times daily. Apply to red area under abdomen twice daily for 14 days. 60 g 1 06/23/20 24 Active atorvastatin (LIPITOR) 80 mg tabletIndications :Mixed hyperlipidemia Take 1 Tablet (80 mg) by mouth at bedtime. 90 Tablet 2 07/09/19 25 Active nystatin powder (MYCOSTATIN) powderIndications :Yeast dermatitis Apply 1 Strip topically to affected area(s) four times daily. 60 g 11 07/20/19 25 Active insulin glargine, U-100, (Lantus Solostar U-100 Insulin) 100 unit/mL (3 mL) penIndications:Ty pe 2 diabetes mellitus with complication, with long-term current use of insulin (HC) Inject 25 units subcutaneous before bedtime. Product desired: LANTUS SOLOSTAR 30 mL 2 07/25/19 25 Active gabapentin (NEURONTIN) 300 mg capsuleIndication s:Controlled type 2 diabetes mellitus with diabetic neuropathy, with long-term current use of insulin (HC) Take 2 Capsules (600 mg) by mouth two times daily. 360 Capsule 3 07/25/19 25 Active dilTIAZem CD (CARDIZEM CD) 240 mg extended release 24 hr capsuleIndication s:Chronic atrial fibrillation (HC) Take 1 Capsule (240 mg) by mouth once daily. 90 Capsule 3 07/25/19 25 Active fluconazole (DIFLUCAN) 150 mg tabletIndications :Yeast dermatitis Take 1 tablet by mouth. Do not take any further doses unless instructed to take by [facility] provider. 3 Tablet 08/16/19 25 Active warfarin (COUMADIN) 2.5 mg tabletIndications :Paroxysmal atrial fibrillation (HC),Anticoagulat ion monitoring, INR range 2-3 Take by mouth 3.75 mg (2.5 mg x 1.5) every Kirsten; 2.5 mg (2.5 mg x 1) all other days in the evening OR as directed 08/22/19 Active metOLazone (ZAROXOLYN) 2.5 mg tablet Take 1 tablet (2.5mg) by mouth as needed if weight 338 lbs or greater per MD direction. 08/23/19 Active warfarin (COUMADIN) 2.5 mg tabletIndications :Paroxysmal atrial fibrillation (HC),Anticoagulat ion monitoring, INR range 2-3 Take by mouth 3.75 mg (2.5 mg x 1.5) every Tue, Kirsten; 2.5 mg (2.5 mg x 1) all other days in the evening OR as directed 04/19/20 24 025 Discontin ued(Other - add note to specify (E-cancel not sent)) metOLazone (ZAROXOLYN) 2.5 mg tabletIndications :Chronic diastolic CHF (congestive heart failure) (HC) [The details of the medication are not available because there are pending changes by a home health clinician.] 1 Tablet 06/20/20 24 025 Discontin ued(Reord er (E-cancel not sent)) warfarin (COUMADIN) 2.5 mg tabletIndications :Paroxysmal atrial fibrillation (HC),Anticoagulat ion monitoring, INR range 2-3 Take by mouth 3.75 mg (2.5 mg x 1.5) every Tue, Kirsten; 2.5 mg (2.5 mg x 1) all other days in the evening OR as directed 08/08/19 25 025 Discontin ued(Other - add note to specify (E-cancel not sent)) warfarin (COUMADIN) 2.5 mg tabletIndications :Paroxysmal atrial fibrillation (HC),Anticoagulat ion monitoring, INR range 2-3 08/20: 1.25 mg; Otherwise 3.75 mg every Tue, Kirsten; 2.5 mg all other days in the evening OR as directed 08/19/19 25 025 Discontin ued(Other - add note to specify (E-cancel not sent)) Active Problems Problem Noted Date Diagnosed Date Stage 3b chronic kidney disease 07/25/2024 Severe pulmonary hypertension 08/17/2023 Lymphedema of both lower extremities 12/23/2022 Chronic diastolic CHF (congestive heart failure) 07/16/2022 Depression, recurrent 07/16/2022 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 POLST (Physician Orders for Life-Sustaining Jeannine tment) 08/28/2021 Diabetic peripheral neuropathy 01/31/2021 Anticoagulation monitoring, INR range 2-3 2019 Abnormal MRI 02/01/2019 Chronic kidney disease, stage III (moderate) IRENA 06/14/2003 AHI-102 05/04/2017 Morbid obesity with BMI of 50.0-59.9, adult 05/30 Dermatitis, reactive 04/21/2016 Type 2 diabetes mellitus wit h stage 3a chronic kidney disease, with long-term current use of insulin 01/08/2016 Migraine 12/18/2014 Vitamin D deficiency 01/12/2013 Hypocalcemia 12/12/2012 Rectal bleeding 06/25/2010 Overview (06/25/2010): Noted 06/21/10 while on Lovenox. Advance Care Plan 10/01/2009 Overview (08/30/2021): Patient has identified Health Care Agent(s): Yes Add Health Care Agents: Yes Health Care Agent(s): Primary Health Care Agent: Lobo Waller Relationship: Sister and brother in law Phone--[phone] Secondary Health Care Agent: Bharat Parkinson Relationship: brother and sister in law Conservator Relationship: no Phone: no Guardian: Relationship: no Phone: no Patient has Advanced Care Plan Documents (Health Care Directive, POLST): Yes Advance Care Plan Documents: Health Care Directive packet given to update at next visit Patient has identified Specific Treatment Preferences: Yes Noted In: Health Care Directive Discussed With: Patient How have preferences been verified: POLST Specific Treatment Preferences: a.) Code Status: DNR/ Do Not Attempt Resuscitation - Allow a Natural b.) Goals of Treatment: iii. Comfort-Focused Treatment (Allow Natural ): Relieve pain and suffering through the use of any medication by any route, positioning, wound care and other measures. Use oxygen, suction and manual treatment of airway obstruction as needed for comfort. Patient prefers no transfer to hospital for life-sustaining treatments. Transfer if comfort needs cannot be met in current location. TREATMENT PLAN: Maximize comfort through symptom management. c.) Interventions and Treatments: ii. Antibiotics: - Oral antibiotics only (NO IV/IM) Manually signed by Sydnie Parkinson & Viv Cary RN on 08/27/2021. Assessment & Plan (10/01/2009 3:59 PM CDT): Advance Care Planning: Basic Interview Session Advance Care Planning discussion completed with Sydnie Salcidoeileensonia and her mother Winsome Parkinson on 10/01/2009 at [facility]. Winsome is not Sydnie Montoya's health care agent but was present. The health care agents are nephew, Man Waller; brother Marcus Parkinson and sister Agustina Arias. Patient and family provided with: Advance Care Planning Discussion Guide Health Care Directive Goals and Values: Patient/family identified factors that may influence treatment preferences: Sydnie's rene/denominational is important to her. She is a member of [employer] in [place]. Understanding of illness patient identifies being diabetic, we briefly discussed dialysis and Sydnie would elect dialysis. Present/past experiences related to illness or father of heart attack-was brought to hospital in morning and by evening had worsened and -their information security was with him at time of and family was on the way to the hospital. Treatment Choices: If Sydnie were suddenly injured and her chances of recovery were 5 out of 100, she WOULD want ongoing life-prolonging treatments such as a ventilator/respirator, feeding tube, etc. recommended by her doctor, until her doctor and agent agree that such treatments are harmful or no longer helpful. Reviewed CPR fact sheet with Sydnie. If she had a sudden event that caused her heart and breathing to stop she WOULD want CPR attempted unless her doctor determines that she has an illness with no cure or injury and is dying; or that she has no reasonable chance of long-term survival if her heart stops, or that she would have little chance of long-term survival if her heart stops and the CPR would cause significant suffering. Documents Completed During Advance Care Planning Session: Health Care Agents identified. Primary health care agent is nephew, Man Waller; secondary health care agent is brother, Marcus Parkinson and sister, Agustina Arias. Health Care Directive completed and scanned into medical record. Recommendations/Plan: Sydnie was encouraged to continue advance care planning discussions with her health care agents. Sydnie is to review her Health Care Directive with her provider at the next office visit and with her health care agents. Resources identified during advance care planning session that patient may benefit from are: look in to [employer] for her mother with whom she lives as Sydnie is away at work during the day. Care Navigation Desk brochure provided. Interviewer: MECHE ARAYA RN .................... 10/01/2009 3:57 PM 10/01/2009 Allergic rhinitis, cause unspecified 06/16/2007 Presbyopia 04/05/2007 Myopia 04/05/2007 IRENA and COPD overlap syndrome 01/26/2006 Unspecified hypertrophic and atrophic condition of skin 10/06/2005 DEGENERATION, PIGMENTARY IRIS 08/01/2005 KNEE PAIN 03/05/2005 Hyperlipidemia 09/10/2004 TOBACCO USER 04/13/2002 Paroxysmal atrial fibrillation Overview (03/07/2009): chronic anticoagulation Resolved Problems Problem Noted Date Diagnosed Date Resolved Date Acute pulmonary edema 07/16/20222022 Acute respiratory failure with hypoxia 10/18/2020 01/31/2021 Atrial fibrillation with RVR 07/11/2019 09/10/2022 Reactive airway disease 07/01/201908/29 Loss of balance 02/01/2019 01/29/2021 Anticoagulated on Coumadin 02/01/2019 1 Rash 11/18/2016 11/18/2016 Aftercare following right hi p joint replacement surgery 11/17/2016 01/29/2021 Aftercare following surgery; R NORI 03/2016 [facility] 04/21/2016 01/29/2021 Diabetic neuropathy 04/21/2016 02/01/20 Hypopotassemia 04/04/2012 09/22/2022 Neuropathy 05/29/2010 01/08/2016 NEUROPATHY - DIABETIC 07/02/20052020 INSECT BITE 01/03/2005 01/08/2016 OBESITY-BMI 56 09/10/2004 06/18/2016 Atrial fibrillation 05/22/2003 05/30/20 10 HYPERTENSION 07/01/2001 01/31/2021 Type 1 diabetes mellitus wit h diabetic polyneuropathy 07/01/2001 01/08/2016 PAIN, ABDOMINAL, UNSPECIFIED SITE 09/10/2004 HERNIA, 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 09/10/2004 EXAMINATION, PREOPERATIVE NEC 09/10/2004 COUGH 09/10/2004 Encounters Date Type Department Care Team Description 08/24/2024 2:30 PM BRIDGE MAINTENANCE WORKER Pharmacist Medication Management [facility] [address] [place] [address] Helena Dickens, PharmD Error-please disregard (appt cancellation) 08/24/2024 Nurse Triage [address] [address] Jacquie Haley NP [facility] (Diarrhea ) 08/23/2024 11:15 AM BRIDGE MAINTENANCE WORKER Home Care Visit [address] [address] Alissa Call, OTR OT - OASIS DISCHARGE 08/23/2024 Home Care Visit [address] [address] Jazlyn Valdivia CARE COORDINATION 08/23/2024 Orders Only [address] [address] Jacquie Haley NP <No scans attached> 08/23/[address] [address] Jacquie Haley NP Lab 08/23/2024 Travel 08/22/2024 1:30 PM BRIDGE MAINTENANCE WORKER Home Care Visit [address] [address] Alissa Nicholson, ARIELLA SN - DISCIPLINE DISCHARGE 08/22/2024 Anticoagulation (warfarin) [address] [address] [facility] (Home Care) 08/22/2024 Patient Outreach [facility] Management - Advanced Care Team [address] [place] [address] Genevieve Peña [facility] (Care guide follow up) 08/19/2024 3:30 PM BRIDGE MAINTENANCE WORKER Home Care Visit [address] [address] Alissa Nicholson RN SN - HOME VISIT 08/19/2024 3:00 PM BRIDGE MAINTENANCE WORKER Orders Only [facility] [address] [place] [address] Lab 08/19/2024 10:30 AM BRIDGE MAINTENANCE WORKER Home Visit [address] [address] Amarilis Rincon MD [facility] 08/19/2024 Travel 08/19/2024 Orders Only [facility] [address] [place] [address] Jacquie Haley NP <No scans attached> 08/19/2024 Anticoagulation (warfarin) [address] [address] [facility] (Home care/[facility] ) 08/19/[address] [address] Jacquie Haley NP Anticoagulation (BPA- Fluconazole) 08/17/2024 12:30 PM BRIDGE MAINTENANCE WORKER Home Care Visit [address] [address] Alissa Call, OTR OT - EDEMA/LYMPHEDEMA HOME VISIT 08/16/[address] [address] Jacquie Haley NP Anticoagulation (BPA - FLUCONAZOLE) 08/16/[address] [address] Jacquie Haley NP Care Coordination 08/16/2024 Orders Only [address] [address] Jacquie Haley NP <No scans attached> 08/15/2024 2:00 PM BRIDGE MAINTENANCE WORKER Home Care Visit [address] [address] Alissa Nicholson RN SN - HOME VISIT 08/15/2024 Anticoagulation (warfarin) [address] [address] [facility] (Home Care) 08/12/2024 3:00 PM BRIDGE MAINTENANCE WORKER Home Care Visit [address] [address] Alissa Nicholson RN SN - HOME VISIT 08/10/2024 3:00 PM BRIDGE MAINTENANCE WORKER Home Care Visit [address] [address] Alissa Call OTR OT - EDEMA/LYMPHEDEMA HOME VISIT 08/08/2024 2:30 PM BRIDGE MAINTENANCE WORKER Home Care Visit [address] [address] Alissa Nicholson RN SN - HOME VISIT 08/08/2024 Anticoagulation (warfarin) [address] [address] [facility] (Home Care) 08/04/2024 12:30 PM BRIDGE MAINTENANCE WORKER Home Care Visit [address] [address] Alissa Call OTR OT - EDEMA/LYMPHEDEMA HOME VISIT 08/04/2024 Travel 08/02/2024 3:30 PM BRIDGE MAINTENANCE WORKER Home Care Visit [address] [address] Alissa Nicholson, ARIELLA SN - HOME VISIT 08/01/2024 11:00 AM BRIDGE MAINTENANCE WORKER Home Care Visit [address] [address] Alissa Call, OTR OT - EDEMA/LYMPHEDEMA INITIAL ASSESSMENT 07/28/2024 Pharmacist Medicatio n Management [facility] [address] [address] Helena Dickens, LigiaD Error-please disregard (opened in error) 07/28/2024 Patient Outreach [facility] Care Management - Advanced Care Team [address] [place] [address] Johanne Mix RN [facility] 07/26/2024 5:00 PM BRIDGE MAINTENANCE WORKER Home Care Visit [address] [address] Alissa Call, OTR LYMPHEDEMA CHART CONSULT 07/25/2024 1:30 PM BRIDGE MAINTENANCE WORKER Home Care Visit [address] [address] Alissa Nicholson RN SN - HOME VISIT 07/25/2024 Anticoagulation (warfarin) [address] [address] [facility] ([facility]) 07/22/2024 10:30 AM BRIDGE MAINTENANCE WORKER Home Care Visit [address] [address] Alissa Nicholson, ARIELLA SN - HOME VISIT 07/20/2024 10:30 AM BRIDGE MAINTENANCE WORKER Home Visit [address] [address] Jacquie Haley NP [facility] 07/19/2024 10:00 AM BRIDGE MAINTENANCE WORKER Home Care Visit [address] [address] Alissa Nicholson RN SN - HOME VISIT 07/19/2024 Travel 07/14/[address] [address] Jacquie Haley NP Results 07/13/2024 1:30 PM BRIDGE MAINTENANCE WORKER Home Care Visit [address] [address] Alissa Nicholson RN SN - HOME VISIT 07/13/2024 Orders Only [facility] [address] [place] [address] Jacquie Haley NP Lab 07/13/2024 Orders Only [address] [address] Jacquie Haley NP <No scans attached> 07/11/2024 2:00 PM BRIDGE MAINTENANCE WORKER Orders Only [facility] [address] [place] [address] Lab 07/11/2024 10:30 AM BRIDGE MAINTENANCE WORKER Home Care Visit [address] [address] Alissa Nicholson RN SN - HOME VISIT 07/11/2024 Travel 07/11/2024 Orders Only [facility] [address] [place] [address] Jacquie Haley NP <No scans attached> 07/11/2024 Anticoagulation (warfarin) [facility] [address] [place] [address] [facility] Antico[facility] (HC) 07/08/2024 Orders Only [address] [address] Jacquie Haley NP <No scans attached> 07/08/2024 Patient Outreach [facility] Care Management - Advanced Care Team [address] [place] [address] Johanne Velez RN [facility] (RN f/u) 07/07/2024 Nurse Triage [address] [address] Jacquie Haley NP Medication Management 07/06/2024 10:45 AM BRIDGE MAINTENANCE WORKER Home Care Visit [address] [address] Alissa Nicholson RN SN - HOME VISIT 07/06/[address] [address] Jacquie Haley NP Refill Request (Atorvastatin) 07/05/2024 Orders Only [address] [address] Amarilis Rincon MD <No scans attached> 07/04/2024 1:00 PM BRIDGE MAINTENANCE WORKER Home Care Visit [address] [address] Alissa Nicholson RN SN - HOME VISIT 07/01/2024 10:00 AM BRIDGE MAINTENANCE WORKER Home Care Visit [address] [address] Alissa Nicholson RN SN - HOME VISIT 06/29/2024 [facility]phone [facility] [address] [place] [address] Maya Rivers, PharmD Medication Management ([facility]- JARDIANCE) 06/28/2024 9:30 AM BRIDGE MAINTENANCE WORKER Home Care Visit [address] [address] Alissa Nicholson RN SN - HOME VISIT 06/27/2024 2:00 AM BRIDGE MAINTENANCE WORKER Home Care Visit [address] [address] Rossana Holt RN SN - WOUND/OSTOMY CHART CONSULT 06/26/2024 Plan of Care Documentation [address] [address] 06/25/2024 12:00 PM BRIDGE MAINTENANCE WORKER Home Care Visit [address] [address] Alissa Nicholson, ARIELLA SN - OASIS START OF CARE 06/23/2024 Nurse Triage [address] [address] Jacquie Haley NP Concerns 06/23/2024 Nurse Triage [address] [address] Jacquie Haley NP Lightheaded 06/20/2024 Nurse Triage [address] [address] Jacquie Haley NP Form (re-enrollment for Jardiance) 06/17/2024 Patient Outreach [facility] Care Management - Advanced Care Team [address] [place] [address] Johanne Velez RN [facility] (Rn f/u) 06/13/2024 9:00 AM BRIDGE MAINTENANCE WORKER Orders Only [address] [address] 2, [employer] Lead Lab 06/13/2024 Anticoagulation (warfarin) [facility] [address] [place] [address] [facility] ([facility]) 06/10/[address] [address] Jacquie Haley NP Lab 06/10/2024 Nurse Triage [address] [address] Jacquie Haley NP Irregular Heart Beat 06/09/[address] [address] Jacquie Haley NP Lab 06/03/[address] [address] Jacquie Haley NP Refill Request (Toprol xl) 05/30/2024 12:30 PM BRIDGE MAINTENANCE WORKER Home Visit [address] [address] Jacquie Haley NP [facility] 05/27/2024 Travel from Last 3 Months Immunizations Name Administration Dates Next Due AMB Influenza, IIV3 (Age >=3 years) Preserve Free (Flu Clinic Only) 03/17/2013 AMB Influenza, IIV3 (Age >=3 years)(Flu Clinic Only) 04/18/2010,04/19/2008 COVID-19 VACCINE SPIKEVAX (M ODERNA 50MCG/0.5ML) 12YO+ PFS 04/08/2024,06/05/2023 COVID-19 vaccine (Moderna 50mcg/0.5mL) 12YO+ BIVALENT PF, MDV 03/19/2022 COVID-19 vaccine (Moderna Rashid maci 50mcg/0.25mL) PF, MDV 05/28/2021 COVID-19 vaccine (Pfizer-Bio NTech 30mcg/0.3mL) PF, MDV 09/27/2020,09/07/2020 Influenza, High-dose Inactivated 04/07/2016 Influenza, IIV3 (Age 6-35 mos) 03/17/2013 Influenza, IIV3 (Age >=3 years) 03/29/20 12,04/18/2010,03/07/2009,2007,05/12/2007,06/24/2005,04/03/2004,0 07/04/2003 Influenza, IIV4 03/25/2017,05/17/2015,04/03/2014 Influenza, Inactivated AIIV4 (Age 65+ Years) Preserv Free 04/01/2023,03/19/2022,05/28/2021 Influenza, Inactivated IIV3 (Age 65+ Years) Preserv Free 04/08/2024,07/02/2019,04/27/2018 Pneumococcal Poly,23-Valent (Pneumovax) 04/27/2018,07/04/2003 Pneumococcal conj 13-Valent (Prevnar 13) 08/11/2016 Pneumococcal conj 7-Valent ( Prevnar 7) 07/04/2003 Td (Age >=7 Years) 07/04/2003 Tdap 01/31/2020,03/07/2009 Zoster (Shingrix-RZV, recombinant) 04/18/2024, Zoster (Zostavax-ZVL, live) 07/08/2013 Family History Medical History Relation Name Comments Good Health Father Cancer Mother bladder - aggre ssive Other Mother glaucoma Other cancer Mother Genetic Other 2 Aunts had Reyna ast cancer.~Mother has CAD.~No hx of Dm,, HTN, or colon cancer. Anesthesia Problem No Family History Blood Disease No Family History Relation Name Status Comments Father Mother Other Social History Tobacco Use Types Packs/Day Years Used Date Smoking Tobacco: Every Day Cigarettes 1 55.2 Started: 06/29/1969 Smokeless Tobacco: Never Tobacco Cessation:Ready to Q uit: No; Counseling Given: Yes Comments:pt declines info but offered Alcohol Use Standard Drinks/Week Comments No 0 (1 standard drink = 0.6 oz pur e alcohol) Alcoholic Drinks/day: 0 PHQ-2 Answer Date Recorded PHQ-2 TOTAL SCORE 1 08/11/2023 Financial Resource Strain Answer Date R ecorded Difficulty of Paying Living Expenses Not on file 06/20/2021 Difficulty of Paying Living Expenses Not on file 06/20/2021 Comments No Sex and Gender Information Value Date Recorded Sex Assigned at Not on file Legal Sex Female 5:27 AM BRIDGE MAINTENANCE WORKER Gender Identity Not on file Sexual Orientation Not on file Occupation Industry Job Start Date Job End Date Retired Not on file Not on file Not on file Obstetrics History Last Filed Vital Signs Vital Sign Reading Time Taken Comments Blood Pressure 120/70 08/23/2024 11:45 AM BRIDGE MAINTENANCE WORKER Pulse 74 08/23/2024 11:45 AM BRIDGE MAINTENANCE WORKER Temperature 36.7 C (98.1 F) 08/23/2024 11:45 AM BRIDGE MAINTENANCE WORKER Respiratory Rate 18 08/23/2024 11:4 5 AM BRIDGE MAINTENANCE WORKER Oxygen Saturation 90% 08/23/2024 11: 45 AM BRIDGE MAINTENANCE WORKER at rest on RA Inhaled Oxygen Concentration - - Weight 160.4 kg (353 lb 9.6 oz) 08/10/2024 2:27 PM BRIDGE MAINTENANCE WORKER stated from yesterday; pt refused to check during visit Height 167.6 cm (5' 6) 09/14/2023 11:4 0 AM CDT Body Mass Index 57.07 09/14/2023 11:40 AM CDT Plan of Treatment Upcoming Encounters Date Type Department Care Team (Late st Contact Info) Description 08/24/2024 2:30 PM BRIDGE MAINTENANCE WORKER Pharmacist Medication Management [facility] [address] [facility] [place] [address] Helena Dickens, PharmD [address] [place], [place] [phone] Error-please disregard (appt cancellation) 08/30/2024 11:00 AM BRIDGE MAINTENANCE WORKER Orders Only [address] [address] 3, Asct Marketing Project Lead 09/16/2024 2:00 PM CDT Home Visit [address] [address] Jacquie Haley, ELEVATOR ATTENDANT [address] [place] [address] Health Maintenance Due Date Last Done Comments Fecal testing sDNA-FIT ([facility]) for age 45-75 10/10/1995 RSV vaccine for adults or (1 - Risk 60-74 years 1-dose series) 2010 Mammogram for age 45-75 06/21/2011 06/21/2010 (Decli rebecca) DEXA/DXA scan for age 65+ 10/10/[address] (for lung CA) ag e 50-80 01/26/2020 01/25/2019 Medicare Wellness for age 65+ 03/20/2023, 01/31/2021, 01/31/2020, Additional history exists BMI (ht and wt on same day) for age 18+ 07/16/2023 07/16/2022, 03/19/2022, 10/18/2020, Additional history exists Depression screening for age 12+ 08/13/2024 08/13/2023, 08/10/2023, 08/10/2023, Additional history exists Lipids for age 45-75 09/07/2028 09/08/2023, 03/19/2022, 10/18/2020, Additional history exists Tetanus booster 01/30/2030 01/31/2020, 02/2009, 07/04/2003 Hepatitis C screening for ag e 18-79 Completed 10/06/2007 Pneumococcal series for age 50+ Completed 04/27/2018, 08/11/2016, 07/04/2003, Additional history exists Tdap Completed 01/31/2020, 03/07/2009 COVID-19 vaccine series Completed 04/08/20 24, 06/05/2023, 03/19/2022, Additional history exists Influenza for age 65+ Completed 04/08/2024 , 04/01/2023, 03/19/2022, Additional history exists Zoster (shingles) series for age 50+ Completed 04/18/2024, 01/31/2020, 07/08/2013 Procedures Procedure Name Priority Date/Time Associated Diagnosis Comments INR,POCT Routine 08/22/2024 2:46 PM BRIDGE MAINTENANCE WORKER HEMOGLOBIN A1C Routine 08/19/2024 3:50 PM BRIDGE MAINTENANCE WORKER Type 2 diabetes mellitus with stage 3a chronic kidney disease, with long-term current use of insulin (HC) BASIC METABOLIC PANEL Routine 08/19/2024 3:50 PM BRIDGE MAINTENANCE WORKER Chronic diastolic CHF (congestive heart failure) (HC) PRO-BNP Routine 08/19/2024 3:50 PM BRIDGE MAINTENANCE WORKER Chronic diastolic CHF (congestive heart failure) (HC) INR,POCT Routine 08/19/2024 INR,POCT Routine 08/15/2024 2:29 PM BRIDGE MAINTENANCE WORKER INR,POCT Routine 08/08/2024 INR,POCT Routine 07/25/2024 BASIC METABOLIC PANEL STAT 07/13/2024 1:40 PM BRIDGE MAINTENANCE WORKER Acute on chronic heart failure with preserved ejection fraction (HFpEF) (HC) PRO-BNP STAT 07/13/2024 1:40 PM BRIDGE MAINTENANCE WORKER Acute on chronic heart failure with preserved ejection fraction (HFpEF) (HC) CBC W PLT NO DIFF Routine 07/11/2024 2:2 6 PM BRIDGE MAINTENANCE WORKER Chronic diastolic CHF (congestive heart failure) (HC) INR,POCT Routine 07/11/2024 MAGNESIUM Routine 06/13/2024 8:45 AM BRIDGE MAINTENANCE WORKER Chronic diastolic CHF (congestive heart failure) (HC) PRO-BNP Routine 06/13/2024 8:45 AM BRIDGE MAINTENANCE WORKER Chronic diastolic CHF (congestive heart failure) (HC) BASIC METABOLIC PANEL Routine 06/13/2024 8:45 AM BRIDGE MAINTENANCE WORKER Chronic diastolic CHF (congestive heart failure) (HC) CBC W PLT NO DIFF Routine 06/13/2024 8:4 5 AM BRIDGE MAINTENANCE WORKER Chronic diastolic CHF (congestive heart failure) (HC) PROTIME-INR Routine 06/13/2024 8:45 AM BRIDGE MAINTENANCE WORKER Paroxysmal atrial fibrillation (HC) Anticoagulation monitoring, INR range 2-3 LIPID PANEL Routine 09/08/2023 12:02 PM CDT Type 2 diabetes mellitus with complication, with long-term current use of insulin (HC) CT CHEST PE STUDY STAT 01/25/2019 4:3 9 PM CDT ANTI HCV Routine 10/06/2007 11:51 AM CDT Hepatitis, Unspecified from Last 3 Months or Most Recently Relevant to Health Maintenance Results * (ABNORMAL) INR,POCT (08/22/2024 2:46 PM BRIDGE MAINTENANCE WORKER) Only the most recent of6 resultswithin the time period is included. INR 3.6(A) 0.0 - 1.2 [facility] [employer] [facility] Blood BLOOD SPECIMEN / Unknown 08/22/2024 2:46 PM BRIDGE MAINTENANCE WORKER us Patient Reported LABORATORY Final Result [facility] [address] [place] [address] * (ABNORMAL) HEMOGLOBIN A1C (08/19/2024 3:50 PM BRIDGE MAINTENANCE WORKER) HEMOGLOBIN A1C 7.4(H) <5.7 % of total Hgb [facility] Comment: For someone without known diabetes, a hemoglobin A1c value of 6.5% or greater indicates that they may have diabetes and this should be confirmed with a follow-up test. For someone with known diabetes, a value <7% indicates that their diabetes is well controlled and a value greater than or equal to 7% indicates suboptimal control. A1c targets should be individualized based on duration of diabetes, age, comorbid conditions, and other considerations. Currently, no consensus exists regarding use of hemoglobin A1c for diagnosis of diabetes for children. Blood BLOOD SPECIMEN / Unknown 08/19/2024 3:50 PM BRIDGE MAINTENANCE WORKER 08/19/2024 3:55 PM BRIDGE MAINTENANCE WORKER Jacquie Haley NP CHEMISTRY Zulma l Result Performing Organization Address City/[facility]/ZIP Co de Phone Number [facility] [address] [place] [address], [facility] [address] [place] [address] * (ABNORMAL) PRO-BNP (08/19/2024 3:50 PM BRIDGE MAINTENANCE WORKER) Only the most recent of3 resultswithin the time period is included. Pathologist [facility] NT PROBNP 2,096(H) <125 pg/mL [facility] Blood BLOOD SPECIMEN / Unknown 08/19/2024 3:50 PM BRIDGE MAINTENANCE WORKER 08/19/2024 3:55 PM BRIDGE MAINTENANCE WORKER Jacquie Haley NP SEND OUTS Zulma l Result [employer] [facility] [place] [address] [facility] [place] [place] [address], [facility] [address] [facility] [place] [address] * (ABNORMAL) BASIC METABOLIC PANEL (08/19/2024 3:50 PM BRIDGE MAINTENANCE WORKER) Only the most recent of3 resultswithin the time period is included. GLUCOSE 126(H) 65 - 99 mg/dL [facility] Comment: Fasting reference interval For someone without known diabetes, a glucose value >125 mg/dL indicates that they may have diabetes and this should be confirmed with a follow-up test. UREA NITROGEN (BUN) 14 7 - 25 mg/dL [facility] CREATININE 1.12(H) 0.60 - 1.00 mg/dL [facility] EGFR 52(L) > OR = 60 mL/min/1.7 3m2 [facility] BUN/CREATININE RATIO 13 6 - 22 (calc) [facility] SODIUM 141 135 - 146 mmol/L [facility] POTASSIUM 4.3 3.5 - 5.3 mmol/L [facility] CHLORIDE 105 98 - 110 mmol/L [facility] CARBON DIOXIDE 27 20 - 32 mmol/L [facility] ELECTROLYTE BALANCE 9 7 - 17 mmol/L (calc) [facility] CALCIUM 8.4(L) 8.6 - 10.4 mg/dL [facility] Blood BLOOD SPECIMEN / Unknown 08/19/2024 3:50 PM BRIDGE MAINTENANCE WORKER 08/19/2024 3:55 PM BRIDGE MAINTENANCE WORKER us Jacquie Haley ELEVATOR ATTENDANT CHEMISTRY Zulma l Result [facility] [address] [place] [address], [facility] [address] [place] [address] * (ABNORMAL) CBC W PLT NO DIFF (07/11/2024 2:26 PM BRIDGE MAINTENANCE WORKER) Only the most recent of2 resultswithin the time period is included. WHITE BLOOD CELL COUNT 7.0 3.8 - 10.8 Thousand/u L [facility] RED BLOOD CELL COUNT 5.04 3.80 - 5.10 Million/uL [facility] HEMOGLOBIN 16.0(H) 11.7 - 15.5 g/dL [facility] HEMATOCRIT 47.7(H) 35.0 - 45.0 % [facility] MCV 94.6 80.0 - 100.0 fL [facility] MCH 31.7 27.0 - 33.0 pg [facility] MCHC 33.5 32.0 - 36.0 g/dL [facility] Comment: For adults, a slight decrease in the calculated MCHC value (in the range of 30 to 32 g/dL) is most likely not clinically significant; however, it should be interpreted with caution in correlation with other red cell parameters and the patient's clinical condition. RDW 13.6 11.0 - 15.0 % [facility] PLATELET COUNT 224 140 - 400 Thousand/u L [facility] MPV 10.2 7.5 - 12.5 fL [facility] Blood BLOOD SPECIMEN / Unknown 07/11/2024 2:26 PM BRIDGE MAINTENANCE WORKER 07/11/2024 2:28 PM BRIDGE MAINTENANCE WORKER Jacquie Haley ELEVATOR ATTENDANT HEMATOLOGY Zulma l Result [facility] [address] [place] [address], [facility] [address] [place] [address] * (ABNORMAL) PROTIME-INR [[id number]] - Standing Order (06/13/2024 8:45 AM BRIDGE MAINTENANCE WORKER) Pathologist [facility] INR 2.0(H) <1.3 06/13/2024 9:28 AM BRIDGE MAINTENANCE WORKER [facility] PROTIME 23.6(H) 10.6 - 12.4 sec 06/13/2024 9:28 AM BRIDGE MAINTENANCE WORKER [facility] Blood BLOOD SPECIMEN / Unknown Venipuncture / Unknown 06/13/2024 8:45 AM BRIDGE MAINTENANCE WORKER 06/13/2024 9:18 AM BRIDGE MAINTENANCE WORKER Narrative [facility] - 06/13/2024 9:28 AM BRIDGE MAINTENANCE WORKER Therapeutic Range 2.0-3.0 for most anticoagulated patients 2.5-3.5 or 4.0 for high risk patients The INR is only used for patients on stable oral anticoagulant therapy. It makes no significant contribution to the diagnosis or treatment of patients whose Protime is prolonged for other reasons. INR results are increased when heparin levels exceed 1.0 U/mL, which corresponds to an aPTT >125 seconds if the patient is on UFH. Jacquie Haley NP HEMATOLOGY Zulma l Result Performing Organization Address [facility] Co de Phone Number [address] [address] * MAGNESIUM (06/13/2024 8:45 AM BRIDGE MAINTENANCE WORKER) Pathologist [facility] MAGNESIUM 1.6 1.6 - 2.4 mg/dL 06/13/2024 9:49 AM BRIDGE MAINTENANCE WORKER [facility] Blood BLOOD SPECIMEN / Unknown Venipuncture / Unknown 06/13/2024 8:45 AM BRIDGE MAINTENANCE WORKER 06/13/2024 9:18 AM BRIDGE MAINTENANCE WORKER Jacquie Haley ELEVATOR ATTENDANT CHEMISTRY Zulma l Result Performing Organization Address City/[facility]/ZIP Co de Phone Number [address] [address] * (ABNORMAL) LIPID PANEL (09/08/2023 12:02 PM CDT) CHOLESTEROL,TOTAL 119 100 - 199 mg/dL 09/08/2023 2:12 PM CDT [facility] TRAL [facility]ORAT[facility] Comment: Cholesterol, Total Reference Ranges Desirable <200 mg/dL Borderline 200-239 mg/dL High >=240 mg/dL TRIGLYCERIDES 189(H) <150 mg/dL 09/08/2023 2:12 PM CDT [facility] HDL CHOLESTEROL 32(L) >40 mg/dL 2:12 PM CDT [facility] NON-HDL CHOLESTEROL 87 <145 mg/dl 09/08/2023 2:12 PM CDT [facility] CHOL/HDL RATIO 3.72 <4.50 09/08/2023 2:12 PM CDT [facility] LDL CHOLESTEROL 49 <=130 mg/dL 09/08/2023 2:12 PM CDT [facility] VLDL CHOLESTEROL 38(H) <=30 mg/dL 09/08/2023 2:12 PM CDT [facility] PROVIDER ORDERED STATUS RANDOM 09/08/2023 2:12 PM CDT [facility] Blood BLOOD SPECIMEN / Unknown Venipuncture / Unknown 09/08/2023 12:02 PM CDT 09/08/2023 1:17 PM CDT us Amarilis Rincon MD CHEMISTRY Final Resu lt Performing Organization Address City/State/[facility] Co de Phone Number [facility] [address] [place] [phone], * CT CHEST PE STUDY (01/25/2019 4:39 PM CDT) Anatomical Region Laterality Modality CHEST, THORAX, HEART Computed To mography 01/25/2019 4:39 PM CDT Narrative 01/25/2019 4:46 PM CDT EXAM: CT CHEST PE STUDY LOCATION: [facility] MEDICAL [facility]AG[facility] DATE/TIME: 01/25/2019 4:39 PM INDICATION: Shortness Of Breath. Elevated d-dimer. COMPARISON: None. TECHNIQUE: Helical acquisition through the chest was performed during the arterial phase of contrast enhancement using IV contrast. 2D and 3D reconstructions were performed by the biomedical engineering technologist. Dose reduction techniques were used. IV CONTRAST: Omnipaque 350 100ml FINDINGS: ANGIOGRAM CHEST: Pulmonary arteries are negative for pulmonary emboli. Enlarged central pulmonary arteries, which measure up to 4.4 cm in the main pulmonary trunk. Normal caliber thoracic aorta with no dissection or aneurysm. LUNGS AND PLEURA: Moderate mosaic attenuation throughout both lungs. No focal consolidation. Minimal scattered linear atelectasis and/or scarring. No pleural effusion or pneumothorax. Calcified granuloma left lower lobe. MEDIASTINUM: Moderate cardiac enlargement. Calcified mediastinal and left hilar lymph nodes. No noncalcified adenopathy. No pericardial effusion. Mild calcifications including the coronary arteries. LIMITED UPPER ABDOMEN: Cholelithiasis. Calcified splenic granulomas. MUSCULOSKELETAL: Mild scattered degenerative changes spine CONCLUSION: 1. Negative for pulmonary embolism. 2. Enlarged central pulmonary arteries suggesting pulmonary arterial hypertension. 3. Mosaic attenuation in the lungs suggesting small airways disease. 4. Evidence of prior granulomatous infection. 5. Cardiac enlargement. Coronary artery disease. 6. Cholelithiasis. Procedure Note Vidal Samuels MD - 01/25/2019 EXAM: CT CHEST PE STUDY LOCATION: [facility] MEDICAL IMAGING DATE/TIME: 01/25/2019 4:39 PM INDICATION: Shortness Of Breath. Elevated d-dimer. COMPARISON: None. TECHNIQUE: Helical acquisition through the chest was performed duringthe arterial phase of contrast enhancement using IV contrast. 2D and 3D reconstructions were performed by the biomedical engineering technologist. Dose reductiontechniques were used. IV CONTRAST: Omnipaque 350 100ml FINDINGS: ANGIOGRAM CHEST: Pulmonary arteries are negative for pulmonary emboli.Enlarged central pulmonary arteries, which measure up to 4.4 cm in the mainpulmonary trunk. Normal caliber thoracic aorta with no dissection or aneurysm. LUNGS AND PLEURA: Moderate mosaic attenuation throughout both lungs. Nofocal consolidation. Minimal scattered linear atelectasis and/or scarring. Nopleural effusion or pneumothorax. Calcified granuloma left lower lobe. MEDIASTINUM: Moderate cardiac enlargement. Calcified mediastinal and lefthilar lymph nodes. No noncalcified adenopathy. No pericardial effusion. Mild calcifications including the coronary arteries. LIMITED UPPER ABDOMEN: Cholelithiasis. Calcified splenic granulomas. MUSCULOSKELETAL: Mild scattered degenerative changes spine CONCLUSION: 1. Negative for pulmonary embolism. 2. Enlarged central pulmonary arteries suggesting pulmonary arterial hypertension. 3. Mosaic attenuation in the lungs suggesting small airways disease. 4. Evidence of prior granulomatous infection. 5. Cardiac enlargement. Coronary artery disease. 6. Cholelithiasis. Maribel Lay PA-C CT Final Result * ANTI HCV (10/06/2007 11:51 AM CDT) ANTI HCV Non-reacti ve [facility] Blood specimen (specimen) BLOOD SPECIMEN / Unknown 10/06/2007 11:51 AM CDT 10/06/2007 11:50 AM CDT us Cherie Nagel MD SEND OUTS Final Result [facility] INTERNAL ZIP [phone] [address] from Last 3 Months or Most Recently Relevant to Health Maintenance Insurance [facility] MEDICARE ADVANTAGE MR HC UCARE MEDICARE PDGM UCARE MEDICARE ADVANTAGE MR Advance Directives Documents on File Type Date Recorded Patient Operations Intelligence Superintendent Expl anation POLST 07/20/2024 Healthcare Directive 08/04/2022 023 POLST 08/28/2021 08/14/19 25 Healthcare Directive 10/01/2009 * DNR (Latest Code Status on File) Date Activated Date Inactivated Comments 08/28/2021 9:04 AM * Partial Code Date Activated Date Inactivated Comments 07/01/2019 5:37 AM 07/06/2019 3:34 PM Question Answer Comments Cardio Resuscitation: No Chest CompressionsNo De fibrillation/Cardioversion Ventilation: No Restrictions Drug Protocol: No Restrictions * Full Code Date Activated Date Inactivated Comments 02/01/2019 8:41 PM 02/02/2019 3:21 PM Care Teams Seam Sewer Relationship Specialty Start Date End Date Jacquie Haley NP [address] [place] [address] [phone] PCP - General Nurse Practitioner - Adult 06/03/23 Shanae Horn CMA [address] [place] [address] [facility] 08/20/22 Amarilis Rincon MD [address] [place] [phone] [facility] Family Practice 02/11/23 Helena Dickens, LigiaD [address] [place], [place] [phone] Pharmacist Medication Management Pharmacology 06/18/23 Sanjay Harrington [address] [facility] [address] [place] [id number] Cardiology Cardiovascular Disease 08/20/23 Genevieve Peña [address] [place] [address] [facility] Care Guide 10/18/23 Kaitlyn Gerber LSW [address] [place], [place] [phone] [facility] Retail Visual Merchandiser 10/18/23 Johanne Mix, RN [address] [place], [place] [phone] [facility] Registered Nurse 10/18/23 Zacarias [facility] [address] [place] [address] 06/24/24
--- NOTE | 2024-08-24 14:09 | ED.SOB ---
HPI - SOB/Dyspnea General Date Seen: 08/24/24 Chief Complaint: Shortness of Breath/Dyspnea Stated Complaint: SOB Time Seen by Provider: 08/24/24 13:35 Source: patient Mode of arrival: EMS Limitations: no limitations History of Present Illness HPI Narrative: Patient is a 73-year-old female brought from her home by EMS for shortness of breath. EMS had seen she is satting the low 90s and when she arrived to the emergency department she is 85% on room air. She does not use oxygen at home. She states she has a the do his activities of daily living at home but typically moves around with a scooter. States that the past few days she has been having increased weakness and shortness of breath. She is still able to do her activities today but felt the much more difficulty with it. Never felt like she was going to pass out but was concerned about how weak she was feeling. No history of blood clots. She has noticed increased swelling in her lower extremities. Has not had any associated chest pain. Denies lightheadedness, dizziness, numbness, abdominal pain, vision changes. Had a headache a couple days ago that has since resolved. Is also having a mild cough that is nonproductive. Not aware of any sick contacts. she is a current smoker. Has never been diagnosed with COPD that she is aware of. Related Data Home Medications ?Medication ?Instructions ?Recorded ?Confirmed acetaminophen 500 mg tablet 1,000 mg PO Q6H PRN 04/07/23 08/24/24 (Tylenol Extra Strength) albuterol sulfate 90 mcg/actuation 2 puff inhalation Q4H PRN dyspnea 04/07/23 08/24/24 aerosol inhaler atorvastatin 80 mg tablet 80 mg PO HS 04/07/23 08/24/24 bumetanide 1 mg tablet 3 mg PO DAILY 04/07/23 08/24/24 cholecalciferol (vitamin D3) 25 25 mcg PO DAILY 04/07/23 08/24/24 mcg (1,000 unit) capsule diltiazem HCl 240 mg 240 mg PO DAILY 04/07/23 08/24/24 capsule,extended release 24 hr empagliflozin 10 mg tablet 10 mg PO DAILY 04/07/23 08/24/24 (Jardiance) insulin glargine 100 unit/mL (3 25 unit subcut DAILY 04/07/23 08/24/24 mL) subcutaneous pen (Lantus Solostar U-100 Insulin) metoprolol succinate 200 mg 200 mg PO DAILY 04/07/23 08/24/24 tablet,extended release 24 hr potassium chloride 20 mEq 20 meq PO DAILY 04/07/23 08/24/24 tablet,extended release warfarin 2.5 mg tablet 2.5 mg PO QPM 04/07/23 08/24/24 fluconazole 150 mg tablet 150 mg PO DAILY 08/24/24 08/24/24 metolazone 2.5 mg tablet mg DAILY 08/24/24 nystatin 100,000 unit/gram topical topical 08/24/24 cream nystatin 100,000 unit/gram topical topical 08/24/24 powder pen needle, diabetic 29 gauge x 08/24/24 08/24/2406/30 (BD Ultra-Fine Original Pen Needle) semaglutide 0.25 mg or 0.5 mg (2 mg subcut 08/24/24 mg/3 mL) subcutaneous pen injector (OzSociocast) Previous Rx's ?Medication ?Instructions ?Recorded furosemide 20 mg tablet 40 mg (2 x 20 mg) PO DAILY@0800 04/13/23 #30 tabs gabapentin 300 mg capsule 300 mg PO BID #60 caps 04/13/23 Allergies Allergy/AdvReac Type Severity Reaction Status Date / Time No Known Drug Allergies Allergy Verified 04/07/23 13:47 Review of Systems Status of ROS: Reports: 10 or more systems reviewed and unremarkable except as noted in History and below [facility] Medical History Urinary incontinence ?R32 - Unspecified urinary incontinence (ICD-10) Chronic obstructive pulmonary disease ?J44.9 - Chronic obstructive pulmonary disease, unspecified (ICD-10) Physical deconditioning ?R53.81 - Other malaise (ICD-10) Physical debility ?R53.81 - Other malaise (ICD-10) Major depressive disorder ?F32.9 - Major depressive disorder, single episode, unspecified (ICD-10) Diabetic peripheral neuropathy associated with type 2 diabetes mellitus ?E11.42 - Type 2 diabetes mellitus with diabetic polyneuropathy (ICD-10) Chronic kidney disease, stage III (moderate) ?N18.30 - Chronic kidney disease, stage 3 unspecified (ICD-10) Migraine ?G43.909 - Migraine, unspecified, not intractable, without status migrainosus (ICD-10) Vitamin D deficiency ?E55.9 - Vitamin D deficiency, unspecified (ICD-10) History of rectal bleeding ?Z87.19 - Personal history of other diseases of the digestive system (ICD-10) Allergic rhinitis ?J30.9 - Allergic rhinitis, unspecified (ICD-10) Tobacco dependence ?F17.200 - Nicotine dependence, unspecified, uncomplicated (ICD-10) Morbid obesity with BMI of 50.0-59.9, adult ?E66.01 - Morbid (severe) obesity due to excess calories (ICD-10) ?Z68.43 - Body mass index [BMI] 50.0-59.9, adult (ICD-10) Chronic acquired lymphedema ?I89.0 - Lymphedema, not elsewhere classified (ICD-10) Obstructive sleep apnea on CPAP ?G47.33 - Obstructive sleep apnea (adult) (pediatric) (ICD-10) Anticoagulation goal of INR 2 to 3 ?Z51.81 - Encounter for therapeutic drug level monitoring (ICD-10) ?Z79.01 - buttermaker helper (current) use of anticoagulants (ICD-10) Chronic anticoagulation ?Z79.01 - buttermaker helper (current) use of anticoagulants (ICD-10) Paroxysmal atrial fibrillation ?I48.0 - Paroxysmal atrial fibrillation (ICD-10) History of tachycardia-bradycardia syndrome ?Z86.79 - Personal history of other diseases of the circulatory system (ICD-10) Pulmonary hypertension ?I27.20 - Pulmonary hypertension, unspecified (ICD-10) Heart failure with preserved ejection fraction ?I50.30 - Unspecified diastolic (congestive) heart failure (ICD-10) Chronic diastolic heart failure ?I50.32 - Chronic diastolic (congestive) heart failure (ICD-10) Acute hypoxic respiratory failure ?J96.01 - Acute respiratory failure with hypoxia (ICD-10) Insulin-requiring or dependent type II diabetes mellitus ?E11.9 - Type 2 diabetes mellitus without complications (ICD-10) ?Z79.4 - care home (current) use of insulin (ICD-10) Surgical History H/O hernia repair ?Z98.890 - Other specified postprocedural states (ICD-10) ?Z87.19 - Personal history of other diseases of the digestive system (ICD-10) History of total abdominal hysterectomy and bilateral salpingo-oophorectomy ?Z90.710 - Acquired absence of both cervix and uterus (ICD-10) ?Z90.722 - Acquired absence of ovaries, bilateral (ICD-10) ?Z90.79 - Acquired absence of other genital organ(s) (ICD-10) History of total left knee replacement (TKR) ?Z96.652 - Presence of left artificial knee joint (ICD-10) History of total right knee replacement ?Z96.651 - Presence of right artificial knee joint (ICD-10) History of total left hip replacement ?Z96.642 - Presence of left artificial hip joint (ICD-10) History of total right hip replacement ?Z96.641 - Presence of right artificial hip joint (ICD-10) Family History Mother Cancer Social History Narrative: Lives alone. Receives extra help and support in her home due to underlying evolving physical debility and physically deconditioned state. Designates her cousin, Heather Walker, as her power of litigation attorney for health should that be required, . Requests DNR DNI resuscitation status in the event of cardiopulmonary demise. What is your current living situation?: I presently have a place to live Problems where you live: no known problems Problems where you live details: N/A In the past 12 months, utilities in danger of being shut off: no In past 12 months, lack of transportation kept you from medical appts, meetings, work, or getting things needed for daily living: no In the past 12 mos, have been you worried that your food would run out before you had money to buy more?: never true In the past 12 mos, the food you bought just didn't last and you didn't have money to buy more?: never true Highest level of school completed/degree received: some college, no degree Smoking Status: Current every day smoker What tobacco products do you use: cigarettes Smoking packs per day: 1 Smoking cigarettes per day: 20.0 Do you use any of these nicotine containing products: None How often do you have a drink containing alcohol: never How often do you have six or more drinks on one occasion: Never AUDIT-C Alcohol total score: 0 Non-prescribed substance use: denies use Caffeine: Yes How often does anyone, including family, friends and others, physically hurt you: never How often does anyone, including family, friends and others, insult or talk down to you: never How often does anyone, including family, friends and others, threaten you with harm: never How often does anyone, including family, friends and others, scream or curse at you: never service: No Exam Narrative: Exam Narrative: Const: Well-nourished, Well-developed, in mild distress Eyes: PERRL, no conjunctival injection, and symmetrical lids HENT: Atraumatic external nose and ears. Moist mucous membranes. Neck: Symmetric, trachea midline, No thyromegaly. CVS: RRR, No murmurs or gallops. Peripheral pulses 2+ and equal in all extremities RESP: Unlabored respiratory effort. Mild wheezing heard throughout GI: Nontender/Nondistended, No rebound or guarding. MSK:Extremities w/o deformity, Normal Active ROM Skin: Warm, Dry. No rashes or lesions. Neuro: Normal Muscle tone, No focal neurological deficits. Psych: Awake, Alert, & Oriented x3. Appropriate mood and affect. Const: Vital Signs, click to edit/add: Vital Signs - 24 hr 08/24/24 13:10 08/24/24 13:21 08/24/24 13:34 Pulse Rate 70 Pulse Rate [Pulse Oximeter] 76 Respiratory Rate 28 H 22 22 Blood Pressure Blood Pressure [Ri ght Upper Arm] 134/73 Pulse Oximetry 85 L 95 94 Oxygen Delivery Me thod Room Air Nasal Cannula Oxygen Flow Rate 2 08/24/24 13:45 08/24/24 14:00 08/24/24 14:02 Pulse Rate 70 67 69 Pulse Rate [Pulse Oximeter] Respiratory Rate 24 22 23 Blood Pressure 110/88 Blood Pressure [Ri ght Upper Arm] Pulse Oximetry 98 96 93 Oxygen Delivery Me thod Oxygen Flow Rate 08/24/24 14:03 08/24/24 14:34 08/24/24 14:45 Pulse Rate 66 65 73 Pulse Rate [Pulse Oximeter] Respiratory Rate 23 24 23 Blood Pressure Blood Pressure [Ri ght Upper Arm] Pulse Oximetry 93 94 95 Oxygen Delivery Me thod Oxygen Flow Rate 08/24/24 14:53 08/24/24 14:54 08/24/24 15:00 Pulse Rate 71 78 71 Pulse Rate [Pulse Oximeter] Respiratory Rate 29 H 24 24 Blood Pressure 121/73 Blood Pressure [Ri ght Upper Arm] Pulse Oximetry 91 92 Oxygen Delivery Me thod Oxygen Flow Rate 08/24/24 15:02 08/24/24 15:15 Pulse Rate 61 70 Pulse Rate [Pulse Oximeter] Respiratory Rate 24 16 Blood Pressure 103/66 Blood Pressure [Ri ght Upper Arm] Pulse Oximetry 93 91 Oxygen Delivery Me thod Oxygen Flow Rate Course Vital Signs Vital signs: Initial Vital Signs Temperature Source Temporal Artery Scan 08/24/24 13:10 Pulse Rate 76 08/24/24 13:10 Respiratory Rate 28 H 08/24/24 13:10 Blood Pressure 134/73 08/24/24 13:10 Blood Pressure Mean 93 08/24/24 13:10 Blood Pressure Position Supine 08/24/24 13:10 Pulse Oximetry 85 L 08/24/24 13:10 Oxygen Delivery Method Room Air 08/24/24 13:10 Vital Signs Pulse Rate 76 08/24/24 13:10 Respiratory Rate 28 H 08/24/24 13:10 Blood Pressure 134/73 08/24/24 13:10 Pulse Oximetry 85 L 08/24/24 13:10 Oxygen Delivery Method Room Air 08/24/24 13:10 Pulse Rate 70 08/24/24 15:15 Respiratory Rate 16 08/24/24 15:15 Blood Pressure 103/66 08/24/24 15:02 Pulse Oximetry 91 08/24/24 15:15 Oxygen Delivery Method Nasal Cannula 08/24/24 13:21 Oxygen Flow Rate 2 08/24/24 13:21 Medications Administered Medications: Discontinued Medications Generic Name Dose Route Start Last Admin Trade Name Freq PRN Reason Stop Dose Admin Albuterol 2.5 mg 08/24/24 13:48 08/24/24 14:31 Albuterol Sulfate 2.5 Mg/3 Ml Vial.Neb NEB 08/24/24 13:49 2.5 mg ONCE ONE Administration MDM - SOB/Dyspnea MDM Narrative Medical decision making narrative: patient is a 73-year-old female presenting to the emergency department for shortness of breath. The differential diagnosis of shortness of breath is broad and includes common etiologies such as COPD, asthma, pneumonia, viral syndrome, etc. More serious etiologies considered include PE, CHF, coronary artery disease, pneumothorax, aortic dissection, aortic aneurysm. Will do EKG and troponin look for signs of ACS. She has no known history of COPD both her smoking history and wheezing on exam would not be surprised if she does. Will order albuterol treatment. Concern for PE, aortic dissection, aortic aneurysm is low at this time. Will do a chest x-ray is look for signs of pneumonia, pneumothorax. BNP ordered to look at CHF. Also order CBC, BMP, COVID/flu / RSV , magnesium. patient's lab work returned with elevated BNP. Chest x-ray reviewed by myself and the radiologist shows some pulmonary edema and a left-sided pleural effusion. This is all consistent with CHF. Viral swabs are negative. EKG and troponin shows no acute concerning abnormalities. She does have AFib on EKG which she states is chronic. She is on warfarin and INR was ordered. Rest of her lab work shows no concerning abnormalities. Repeat exam after the albuterol treatment does show improvement in her wheezing. I do believe this is mostly a CHF exacerbation with some underlying COPD. She states she has not used her inhalers at home for a long time. she may benefit from increased use of these. She will be admitted to the hospitalist service. Lab Data Labs: Lab Results 08/24/24 08/24/24 Range/Units 13:24 14:05 WBC 6.45 (4.50-11.00) K/uL RBC 5.09 (4.00-5.20) m/uL Hgb 15.7 (12.0-16.0) gm/dL Hct 50.2 (33.0-51.0) % MCV 99 (80-100) fL MCH 31 (26-34) pg MCHC 31 L (32-36) gm/dL RDW Coeff of Aby 15.6 H (11.5-15.5) % Plt Count 205 (140-440) K/uL Neut % (Auto) 78.0 H (42.0-72.0) % Lymph % (Auto) 11.9 L (20-44) % [place] % (Auto) 6.8 (0.0-11.0) % Eos % (Auto) 2.8 (0.0-7.0) % Baso % (Auto) 0.3 (0.0-3.0) % Neut # (Auto) 5.00 (1.7-7.0) K/uL Lymph # (Auto) 0.80 L (0.90-2.90) K/uL [place] # (Auto) 0.40 (0.00-0.90) K/UL Eos # (Auto) 0.18 (0.00-0.50) K/uL Baso # (Auto) 0.02 (0.00-0.30) K/uL Abs Immat Gran (auto) 0.01 (0.00-0.30) K/uL Imm/Tot Granulo (auto) 0.2 % Sodium 138 (135-149) mmol/L Potassium 4.4 (3.6-5.1) mmol/L Chloride 102 (96-114) mmol/L Carbon Dioxide 28 (20-32) mmol/L Anion Gap 8 (7-15) mEq/L BUN 14 (7-30) mg/dL Creatinine 1.1 (0.5-1.5) mg/dL Estimated Creat Clear 42.64 Estimated GFR 53 ml/min Glucose 124 H (60-115) mg/dL Calcium 8.5 (8.4-10.6) mg/dL Magnesium 1.5 (1.5-2.6) mg/dL Troponin I < 0.01 L (0.01-0.04) ng/mL NT-Pro-B Natriuret Pep 3370 pg/mL SARS-CoV-2 (PCR) Negative SARS-CoV-2 (Negative) Influenza Type A (PCR) Negative PCR FLU A (Negative) Influenza Type B (PCR) Negative PCR FLU B (Negative) RSV (PCR) Negative PCR RSV (Negative) Imaging Data Chest x-ray: Attestation: I have reviewed the pertinent imaging results. Radiologist's impression: Moderate interstitial prominence and patchy airspace opacities with small to moderate left pleural effusion. Findings are favored to represent moderate pulmonary edema, though infection can not be excluded. Dictated by Aj Salamanca MD @ 08/24/2024 3:08:04 PM ECG Data Attestation: I personally reviewed and interpreted this ECG as follows: Prior ECG tracings: not available for review Interpretation: AFib with a rate of 69 beats per minute, normal QRS and QTC, normal axis, no ST or T-wave abnormalities. Discharge Plan Discharge Clinical Impression: COPD exacerbation CHF exacerbation Qualifiers: Heart failure type: unspecified Qualified Code(s): I50.9 - Heart failure, unspecified Patient Disposition: Admitted As Observation Condition: Improved Prescriptions: No Action atorvastatin 80 mg tablet 80 mg PO HS diltiazem HCl 240 mg capsule,extended release 24hr 240 mg PO DAILY metoprolol succinate 200 mg tablet extended release 24 hr 200 mg PO DAILY warfarin 2.5 mg tablet 2.5 mg PO QPM bumetanide 1 mg tablet 3 mg PO DAILY albuterol sulfate 90 mcg/actuation HFA aerosol inhaler 2 puff INHALATION Q4H PRN (Reason: dyspnea) insulin glargine [Lantus Solostar U-100 Insulin] 100 unit/mL (3 mL) insulin pen 25 unit subcut DAILY Jardiance 10 mg tablet 10 mg PO DAILY acetaminophen [Tylenol Extra Strength] 500 mg tablet 1,000 mg PO Q6H PRN cholecalciferol (vitamin D3) 25 mcg (1,000 unit) capsule 25 mcg PO DAILY potassium chloride 20 mEq tablet extended release 20 meq PO DAILY furosemide 20 mg Tablet 40 mg PO DAILY@0800 Qty: 30 0RF gabapentin 300 mg capsule 300 mg PO BID Qty: 60 0RF Ozempic 0.25 mg or 0.5 mg (2 mg/3 mL) pen injector SUBCUT Patient Comments: [NO ORIGINAL SIG] metolazone 2.5 mg tablet DAILY fluconazole 150 mg tablet 150 mg PO DAILY nystatin 100,000 unit/gram cream topical nystatin 100,000 unit/gram powder topical (DME) pen needle, diabetic [BD Ultra-Fine Orig Pen Needle] 29 gauge x 1/2 needle MISCELLANEOUS Patient Comments: [NO ORIGINAL SIG] Follow Up/Referrals: Provider,Not a Local [Primary Care Provider] -
[2024-08-24 14:22] LABS: PCR FLU A Negative PCR FLU A (Negative); PCR FLU B Negative PCR FLU B (Negative); PCR RSV Negative PCR RSV (Negative); SARS PCR* Negative SARS-CoV-2 (Negative)
[2024-08-24] MEDS: ALBUTEROL SULFATE 2.5 MG/3 ML VIAL.NEB NEB (14:31)
[2024-08-24 14:53] LABS: Chloride* 102 mmol/L (96-114); Potassium* 4.4 mmol/L (3.6-5.1); Sodium* 138 mmol/L (135-149)
[2024-08-24 14:56] LABS: Anion Gap 8 mEq/L (7-15); Basophils Absolute Auto 0.02 K/uL (0.00-0.30); Basophils Percent Auto 0.3 % (0.0-3.0); Blood Urea Nitrogen* 14 mg/dL (7-30); Calcium* 8.5 mg/dL (8.4-10.6); Carbon Dioxide* 28 mmol/L (20-32); Creatinine* 1.1 mg/dL (0.5-1.5); Eosinophils Absolute Auto 0.18 K/uL (0.00-0.50); Eosinophils Percent Auto 2.8 % (0.0-7.0); Est. Creatinine Clearance* 42.64; Estimated Glomerular Filt Rate 53 ml/min; Glucose* 124 mg/dL (60-115); Hematocrit 50.2 % (33.0-51.0); Hemoglobin* 15.7 gm/dL (12.0-16.0); Immature Granulocytes Abs Auto 0.01 K/uL (0.00-0.30); Immature Granulocytes Pct Auto 0.2 %; Lymphocytes Percent Auto 11.9 % (20-44); Mean Corpuscular HGB Conc 31 gm/dL (32-36); Mean Corpuscular Hemoglobin 31 pg (26-34); Mean Corpuscular Volume 99 fL (80-100); Monocytes Percent Auto 6.8 % (0.0-11.0); Platelet Count* 205 K/uL (140-440); RDW Coefficient of Variation % 15.6 % (11.5-15.5); Red Blood Count 5.09 m/uL (4.00-5.20); White Blood Count* 6.45 K/uL (4.50-11.00)
[2024-08-24 14:57] LABS: Magnesium* 1.5 mg/dL (1.5-2.6)
[2024-08-24 15:07] LABS: NT Pro B Type NatriureticPept* 3370 pg/mL; Troponin I* < 0.01 ng/mL (0.01-0.04)
[2024-08-24 15:09] LABS: Slide Review Reflex No
[2024-08-24] MEDS: METHYLPREDNISOLONE SOD SUCC 62.5 MG/ML (125) 125 MG IVP (15:51)
[2024-08-24 16:03] LABS: INR 2.81 (0.91-1.10); Prothrombin Time 30.8 Seconds
--- NOTE | 2024-08-24 17:20 | PM.IMHP1 ---
Hospitalist- H&P: TRELL History of Present Illness Date Seen: 08/24/24 Chief complaint: SOB Narrative: Sydnie Parkinson is a 73 year old female with heart failure, atrial fibrillation, COPD, sleep apnea, CKD 3, severe lymphedema, morbid obesity, diabetes, pulmonary hypertension admitted through the emergency department with worsening dyspnea. Patient is noted worsening dyspnea over the last couple days. Along with this she has also had chronic severe lymphedema. This is gotten much worse to the point she can no longer wear her compression stockings on her legs because they do not fit. She has a home care nurse who comes for lymphedema care and saw her yesterday. Unclear what that conversation entailed. She is unsure of however weight is compared to her target weight for her heart failure. She reports she is compliant with her medications. She has not had fever, cold, chest pain, vomiting, abdominal pain. She does report cough productive of clear sputum and nausea, anorexia and early satiety recently. [facility] Medical History (Updated 08/24/24 @ 17:44 by Lavelle Morales MD) Smoking greater than 40 pack years ?F17.210 - Nicotine dependence, cigarettes, uncomplicated (ICD-10) Urinary incontinence ?R32 - Unspecified urinary incontinence (ICD-10) Chronic obstructive pulmonary disease ?J44.9 - Chronic obstructive pulmonary disease, unspecified (ICD-10) Physical deconditioning ?R53.81 - Other malaise (ICD-10) Physical debility ?R53.81 - Other malaise (ICD-10) Major depressive disorder ?F32.9 - Major depressive disorder, single episode, unspecified (ICD-10) Diabetic peripheral neuropathy associated with type 2 diabetes mellitus ?E11.42 - Type 2 diabetes mellitus with diabetic polyneuropathy (ICD-10) Chronic kidney disease, stage III (moderate) ?N18.30 - Chronic kidney disease, stage 3 unspecified (ICD-10) Migraine ?G43.909 - Migraine, unspecified, not intractable, without status migrainosus (ICD-10) Vitamin D deficiency ?E55.9 - Vitamin D deficiency, unspecified (ICD-10) History of rectal bleeding ?Z87.19 - Personal history of other diseases of the digestive system (ICD-10) Allergic rhinitis ?J30.9 - Allergic rhinitis, unspecified (ICD-10) Tobacco dependence ?F17.200 - Nicotine dependence, unspecified, uncomplicated (ICD-10) Morbid obesity with BMI of 50.0-59.9, adult ?E66.01 - Morbid (severe) obesity due to excess calories (ICD-10) ?Z68.43 - Body mass index [BMI] 50.0-59.9, adult (ICD-10) Chronic acquired lymphedema ?I89.0 - Lymphedema, not elsewhere classified (ICD-10) Obstructive sleep apnea on CPAP ?G47.33 - Obstructive sleep apnea (adult) (pediatric) (ICD-10) Anticoagulation goal of INR 2 to 3 ?Z51.81 - Encounter for therapeutic drug level monitoring (ICD-10) ?Z79.01 - buttermaker continuous churn (current) use of anticoagulants (ICD-10) Chronic anticoagulation ?Z79.01 - buttermaker continuous churn (current) use of anticoagulants (ICD-10) Paroxysmal atrial fibrillation ?I48.0 - Paroxysmal atrial fibrillation (ICD-10) History of tachycardia-bradycardia syndrome ?Z86.79 - Personal history of other diseases of the circulatory system (ICD-10) Pulmonary hypertension ?I27.20 - Pulmonary hypertension, unspecified (ICD-10) Heart failure with preserved ejection fraction ?I50.30 - Unspecified diastolic (congestive) heart failure (ICD-10) Chronic diastolic heart failure ?I50.32 - Chronic diastolic (congestive) heart failure (ICD-10) Acute hypoxic respiratory failure ?J96.01 - Acute respiratory failure with hypoxia (ICD-10) Insulin-requiring or dependent type II diabetes mellitus ?E11.9 - Type 2 diabetes mellitus without complications (ICD-10) ?Z79.4 - buttermaker continuous churn (current) use of insulin (ICD-10) Surgical History H/O hernia repair ?Z98.890 - Other specified postprocedural states (ICD-10) ?Z87.19 - Personal history of other diseases of the digestive system (ICD-10) History of total abdominal hysterectomy and bilateral salpingo-oophorectomy ?Z90.710 - Acquired absence of both cervix and uterus (ICD-10) ?Z90.722 - Acquired absence of ovaries, bilateral (ICD-10) ?Z90.79 - Acquired absence of other genital organ(s) (ICD-10) History of total left knee replacement (TKR) ?Z96.652 - Presence of left artificial knee joint (ICD-10) History of total right knee replacement ?Z96.651 - Presence of right artificial knee joint (ICD-10) History of total left hip replacement ?Z96.642 - Presence of left artificial hip joint (ICD-10) History of total right hip replacement ?Z96.641 - Presence of right artificial hip joint (ICD-10) Family History Mother Cancer Social History (Updated 08/24/24 @ 17:35 by Lavelle Morales MD) Narrative: Lives alone. Receives extra help and support in her home due to underlying evolving physical debility and physically deconditioned state. Designates her cousin, Heather Walker, as her primary healthcare power of deputy attorney general should that be required, . Secondary POA would be her brother, Elfego Parkinson. Requests DNR DNI resuscitation status in the event of cardiopulmonary demise. Smokes 1-1.5 pack of cigarettes a day for over 50 years. Does not drink alcohol. She gets around her home with an electric scooter. She is able to stand and walk holding on with a cane or holding onto zhao furniture counter tops. She reports that she thinks things are going well in her home situation. She has [facility] home healthcare with Dr. Rincon and Jacquie Haley [facility] and nursing care frequently doing home visits. What is your current living situation?: I presently have a place to live Problems where you live: no known problems Problems where you live details: N/A In the past 12 months, utilities in danger of being shut off: no In past 12 months, lack of transportation kept you from medical appts, meetings, work, or getting things needed for daily living: no In the past 12 mos, have been you worried that your food would run out before you had money to buy more?: never true In the past 12 mos, the food you bought just didn't last and you didn't have money to buy more?: never true Highest level of school completed/degree received: some college, no degree Smoking Status: Current every day smoker What tobacco products do you use: cigarettes Smoking packs per day: 1 Smoking cigarettes per day: 20.0 Do you use any of these nicotine containing products: None How often do you have a drink containing alcohol: never How often do you have six or more drinks on one occasion: Never AUDIT-C Alcohol total score: 0 Non-prescribed substance use: denies use Caffeine: Yes How often does anyone, including family, friends and others, physically hurt you: never How often does anyone, including family, friends and others, insult or talk down to you: never How often does anyone, including family, friends and others, threaten you with harm: never How often does anyone, including family, friends and others, scream or curse at you: never service: No Meds Home Medications and Allergies Home Medications ?Medication ?Instructions ?Recorded ?Confirmed ?Type acetaminophen 500 mg tablet 1,000 mg PO Q6H PRN 04/07/23 08/24/24 History (Tylenol Extra Strength) albuterol sulfate 90 mcg/actuation 2 puff inhalation Q4H PRN dyspnea 04/07/23 08/24/24 History aerosol inhaler atorvastatin 80 mg tablet 80 mg PO HS 04/07/23 08/24/24 History bumetanide 1 mg tablet 3 mg PO DAILY 04/07/23 08/24/24 History cholecalciferol (vitamin D3) 25 25 mcg PO DAILY 04/07/23 08/24/24 History mcg (1,000 unit) capsule diltiazem HCl 240 mg 240 mg PO DAILY 04/07/23 08/24/24 History capsule,extended release 24 hr insulin glargine 100 unit/mL (3 25 unit subcut HS 04/07/23 08/24/24 History mL) subcutaneous pen (Lantus Solostar U-100 Insulin) metoprolol succinate 200 mg 200 mg PO DAILY 04/07/23 08/24/24 History tablet,extended release 24 hr potassium chloride 20 mEq 40 meq PO BID 04/07/23 08/24/24 History tablet,extended release warfarin 2.5 mg tablet 2.5 - 3.75 mg PO QPM 04/07/23 08/24/24 History empagliflozin 25 mg tablet 25 mg PO DAILY 08/24/24 08/24/24 History (Jardiance) fluconazole 150 mg tablet 150 mg PO DAILY PRN 08/24/24 08/24/24 History gabapentin 300 mg capsule 600 mg PO BID 08/24/24 08/24/24 History metolazone 2.5 mg tablet 2.5 mg PO DAILY PRN 08/24/24 08/24/24 History nystatin 100,000 unit/gram topical 1 applic topical BID PRN 08/24/24 08/24/24 History cream nystatin 100,000 unit/gram topical 1 applic topical QID PRN 08/24/24 08/24/24 History powder pen needle, diabetic 29 gauge x 08/24/24 08/24/24 History 1/2 (BD Ultra-Fine Original Pen Needle) semaglutide 0.25 mg or 0.5 mg (2 0.25 mg subcut Q7D 08/24/24 08/24/24 History mg/3 mL) subcutaneous pen injector (Ozempic) Allergies Allergy/AdvReac Type Severity Reaction Status Date / Time No Known Drug Allergies Allergy Verified 04/07/23 13:47 Exam Narrative: Exam Narrative: She is alert and appears in no distress now breathing supplemental oxygen. She gives her own history with fairly good detail. She is able to tell me about her medications with prompting with a medication list. Head is without trauma. Eyes normal. No facial asymmetry. Oropharynx with small airway. Neck is supple without mass or adenopathy. Cannot appreciate jugular venous distension with a difficult exam. Respirations with moderately diminished breath sounds at bilateral lung bases up about a 3rd. She has occasional expiratory wheezes and crackles present as well. Cardiovascular: S1, S2, irregularly irregular. Distant heart sounds. No murmur gallop or rub. Abdomen is soft. Bowel sounds are active. She has mild intertrigo in the skin folds. Moderate edema/anasarca in her pannus specially on the flanks and hips. Fairly severe edema in both lower extremities which are markedly enlarged from lymphedema with chronic skin changes associated with lymphedema. No significant erythema or skin breakdown. Due to lymphedema can appreciate pedal pulses but feet are warm to touch with adequate capillary refill. Const: Vital Signs, click to edit/add: Vital Signs - 24 hr 08/24/24 13:10 08/24/24 13:21 08/24/24 13:34 Pulse Rate 70 Pulse Rate [Pulse Oximeter] 76 Respiratory Rate 28 H 22 22 Blood Pressure Blood Pressure [Ri ght Upper Arm] 134/73 Pulse Oximetry 85 L 95 94 Oxygen Delivery Me thod Room Air Nasal Cannula Oxygen Flow Rate 2 08/24/24 13:45 08/24/24 14:00 08/24/24 14:02 Pulse Rate 70 67 69 Pulse Rate [Pulse Oximeter] Respiratory Rate 24 22 23 Blood Pressure 110/88 Blood Pressure [Ri ght Upper Arm] Pulse Oximetry 98 96 93 Oxygen Delivery Me thod Oxygen Flow Rate 08/24/24 14:03 08/24/24 14:34 08/24/24 14:45 Pulse Rate 66 65 73 Pulse Rate [Pulse Oximeter] Respiratory Rate 23 24 23 Blood Pressure Blood Pressure [Ri ght Upper Arm] Pulse Oximetry 93 94 95 Oxygen Delivery Me thod Oxygen Flow Rate 08/24/24 14:53 08/24/24 14:54 08/24/24 15:00 Pulse Rate 71 78 71 Pulse Rate [Pulse Oximeter] Respiratory Rate 29 H 24 24 Blood Pressure 121/73 Blood Pressure [Ri ght Upper Arm] Pulse Oximetry 91 92 Oxygen Delivery Me thod Oxygen Flow Rate 08/24/24 15:02 08/24/24 15:15 08/24/24 15:30 Pulse Rate 61 70 74 Pulse Rate [Pulse Oximeter] Respiratory Rate 24 16 12 Blood Pressure 103/66 Blood Pressure [Ri ght Upper Arm] Pulse Oximetry 93 91 93 Oxygen Delivery Me thod Oxygen Flow Rate 08/24/24 15:45 Pulse Rate 65 Pulse Rate [Pulse Oximeter] Respiratory Rate Blood Pressure Blood Pressure [Ri ght Upper Arm] Pulse Oximetry 94 Oxygen Delivery Me thod Oxygen Flow Rate Documenting provider has reviewed patient's vital signs: yes Hospitalist - H&P: Result Labs Labs: Short CBC 08/24/24 Range/Units 14:05 WBC 6.45 (4.50-11.00) K/uL Hgb 15.7 (12.0-16.0) gm/dL Hct 50.2 (33.0-51.0) % Plt Count 205 (140-440) K/uL BMP 08/24/24 14:05 Sodium 138 Potassium 4.4 Chloride 102 Carbon Dioxide 28 BUN 14 Creatinine 1.1 Glucose 124 H Calcium 8.5 Cardiac Enzymes 08/24/24 Range/Units 14:05 Troponin I < 0.01 L (0.01-0.04) ng/mL ECG Attestation: I personally reviewed and interpreted this ECG as follows: (Atrial fibrillation with a rate of 69. No acute ST-T changes. Poor R-wave progression across precordial leads ) ECG interpretation date: 08/24/24 Imaging Chest x-ray: Radiologist's impression: Indication: SOB Technique: PA and lateral views of the chest. Comparison: 04/09/2023. Findings: Low lung volumes. Left chest pacemaker with right ventricular lead. Moderately enlarged cardiomediastinal silhouette. Moderate interstitial prominence and patchy airspace opacities. Small to moderate left pleural effusion. No visualized pneumothorax. Moderate degenerative changes of the visualized spine. Impression: Moderate interstitial prominence and patchy airspace opacities with small to moderate left pleural effusion. Findings are favored to represent moderate pulmonary edema, though infection can not be excluded. Assessment and Plan Assessment and plan (1) CHF exacerbation: Problem comment: Appears at least 30-40 lbs of excess fluid. Needs aggressive diuresis with IV furosemide drip. Lymphedema may not completely resolve with this so she will need compression and elevation for that. Obtain echo. Status: Acute (2) COPD exacerbation: Problem comment: She clearly has underlying COPD. The wheezing today may be from COPD or from heart failure. If wheezing does not resolve with treatment heart failure and nebulizers consider ongoing steroid treatment for COPD. Status: Acute (3) Physical debility: Problem comment: Multifactorial including morbid obesity, deconditioning, heart failure, lymphedema, COPD Status: Acute (4) Chronic acquired lymphedema: Problem comment: Unable to use lymphedema pumps on her legs due to severe edema. Will needed aggressive diuresis to get her lymphedema treatment going again Status: Acute (5) Chronic anticoagulation: Problem comment: On warfarin. I recommended switching to apixaban. She will discuss with Dr. Rincon Status: Acute (6) Pulmonary hypertension: Problem comment: Patient presented with decompensated HFpEF likely secondary to pulmonary HTN and worsened lymphedema (see below). - Transthoracic echocardiogram 02/11/2023: 1. Normal LV size, thickness. EF 55-60%. No regional wall motion abnormalities. 2. RV normal size. 3. Moderate to severe biatrial enlargement. 4. Trace tricuspid regurgitation. Elevated right ventricular systolic pressure consistent with severe pulmonary hypertension. 5. Findings similar to previous echocardiogram on 06/21/2022. Status: Chronic Plan Patient is admitted the hospital for aggressive diuresis. This is likely to take at least 3 days to optimize her diuresis and identify appropriate home therapy for this. During that time also assess for her ability to live independently and care for self. Total Time Spent Total Time Spent: Total time spent today is 80 minutes in coordination of care, reviewing outside records, discussing with patient and other providers management of heart failure, COPD, lymphedema and multiple other medical problems noted above
[2024-08-24] MEDS: FUROSEMIDE 10 MG/ML inj 80 MG IVP (17:52)
[2024-08-24] MEDS: POTASSIUM BICARB 25 MEQ EFFERVESCENT TAB PO ×2 (17:53→20:51)
[2024-08-24] MEDS: MAGNESIUM IV 2 GM/50 ML PIGGYBACK IVPB (17:53)
[2024-08-24] MEDS: WARFARIN 2.5 MG TABLET PO (17:53)
[2024-08-24] MEDS: NICOTINE 21 MG PATCH 1 PATCH TRANSDERMA (17:54)
--- NOTE | 2024-08-24 19:14 | PC.NURSE ---
The patient becomes irritable with cares and gets frustrated with with her SOB. VS require O2 to maintain oxygen saturations and tachypnea is noted. No reports of pain. 2-3+ pitting edema in BLE. LLE has CDI blister. Forde inserted to measure accurate I/O. IV lasix drip initiated. Able to turn herself and shift weight in bed. Mild redness in pannus, and the patients groin/pubic area is very sensitive. SOB at rest and with exertion, pursed lip breathing is noted as well. Call light within reach, the patient is able to make her needs known. Lupe KRISHNAN BSN
[2024-08-24] MEDS: INSULIN GLARGINE,HUM.REC.ANLOG 100 UNIT/ML INSULN.PEN 25 UNIT SUBCUT (20:51)
[2024-08-24] MEDS: INSULIN ASPART 100 UNIT/ML SUBCUT (20:51)
[2024-08-25] VITALS (10 sets, daily range): BP systolic 111–133; BP diastolic 62–79; PULSE 71–91; RESP 18–22; TEMP 36.3–36.7; O2SAT 89–98
[2024-08-25] MEDS: GABAPENTIN 300 MG CAPSULE 600 MG PO ×3 (00:19→20:37)
[2024-08-25] MEDS: ATORVASTATIN CALCIUM 40 MG TABLET 80 MG PO ×2 (00:20→20:36)
[2024-08-25] MEDS: INSULIN ASPART 100 UNIT/ML SUBCUT ×4 (06:07→21:26)
[2024-08-25 06:24] LABS: HCO3 VBG 32 mmol/L (21-28); PCO2 VBG 53 mmHG (40-50); PO2 VBG < 30.1 mmHG (25-47); pH VBG 7.393 (7.32-7.43)
[2024-08-25 06:30] LABS: Hematocrit 49.2 % (33.0-51.0); Hemoglobin* 15.5 gm/dL (12.0-16.0); Immature Granulocytes Abs Auto 0.01 K/uL (0.00-0.30); Immature Granulocytes Pct Auto 0.2 %; Mean Corpuscular HGB Conc 32 gm/dL (32-36); Mean Corpuscular Hemoglobin 31 pg (26-34); Mean Corpuscular Volume 98 fL (80-100); Neutrophils Percent Auto 93.8 % (42.0-72.0); Platelet Count* 180 K/uL (140-440); RDW Coefficient of Variation % 15.4 % (11.5-15.5); Red Blood Count 5.04 m/uL (4.00-5.20); White Blood Count* 5.83 K/uL (4.50-11.00)
[2024-08-25 06:42] LABS: Chloride* 100 mmol/L (96-114); Potassium* 4.5 mmol/L (3.6-5.1); Sodium* 136 mmol/L (135-149)
[2024-08-25 06:45] LABS: Anion Gap 5 mEq/L (7-15); Blood Urea Nitrogen* 17 mg/dL (7-30); Carbon Dioxide* 31 mmol/L (20-32); Creatinine* 1.2 mg/dL (0.5-1.5); Est. Creatinine Clearance* 37.57; Estimated Glomerular Filt Rate 48 ml/min; Glucose* 224 mg/dL (60-115)
[2024-08-25 06:46] LABS: Calcium* 8.5 mg/dL (8.4-10.6); Magnesium* 1.7 mg/dL (1.5-2.6)
[2024-08-25 06:47] LABS: Slide Review Reflex No
[2024-08-25 06:57] LABS: INR 2.68 (0.91-1.10); Prothrombin Time 29.7 Seconds
--- NOTE | 2024-08-25 07:40 | PC.NURSE ---
Pt alert and oriented x3. Afebrile. Pt denies pain, chest pain, and N/V. Pt reports SOB with exertion. Pt had CPAP on throughout night with 3L O2 attempts made to titrate pt down to 2.5 pt O2 stats dropped to 85%. Pt currently on 2L via nasal cannula. Pt reports ?I am feeling much better than when I first came in, it feels like I can breathe better.? Pt?s donald catheter is patent and draining.?Pt had 4000 ml output from donald catheter from [id number].
[2024-08-25] MEDS: EMPAGLIFLOZIN 25 MG TABLET PO (08:57)
[2024-08-25] MEDS: IPRAT-ALBUT 0.5-2.5 MG/3 ML NEB 1 NEB IH ×4 (08:58→20:37)
[2024-08-25] MEDS: dilTIAZem 240 MG CAP (CD) PO (08:58)
[2024-08-25] MEDS: SODIUM CHLORIDE 0.9 % (FLUSH) 10 ML SYRINGE 5 ML IVF ×2 (09:00→20:37)
[2024-08-25] MEDS: METOPROLOL SUCCINATE (XL) 100 MG TAB 200 MG PO (09:14)
[2024-08-25] MEDS: ACETAMINOPHEN 500 MG TABLET 1000 MG PO ×2 (11:00→19:35)
--- NOTE | 2024-08-25 11:01 | PM.IMPN1 ---
Progress Note: A&P Assessment and plan (1) CHF exacerbation: Problem details: - unsure of dry weight, appeared to be 30+ pounds over on admission - Furosemide gtt initiated 08/24, will transition to IV Furosemide this evening (has received 10mg of Lasix/hr, 240mg/first 24 hours of stay. At midnight, will transition to 60mg of IV Lasix Q8H - 180mg/24hr) - TTE ordered to assess EF - continue home meds for CHF: Metoprolol, Jardiance, diuretics (unclear compliance at home with meds) Status: Acute (2) COPD exacerbation: Problem details: - wheezing on admission, improved 08/25 Status: Acute (3) Physical debility: Problem details: - multifactorial including morbid obesity, deconditioning, heart failure, lymphedema, COPD - therapies ordered Status: Acute (4) Chronic acquired lymphedema: Problem details: - OT ordered to help with lymphedema therapies Status: Acute (5) Chronic anticoagulation: Problem details: - currently on warfarin, Apixiban recommended, patient with discuss with PCP (Dr. Rincon) Status: Acute (6) Pulmonary hypertension: Problem details: - known history of this, repeat TTE has been ordered - Transthoracic echocardiogram 02/11/2023: 1. Normal LV size, thickness. EF 55-60%. No regional wall motion abnormalities. 2. RV normal size. 3. Moderate to severe biatrial enlargement. 4. Trace tricuspid regurgitation. Elevated right ventricular systolic pressure consistent with severe pulmonary hypertension. 5. Findings similar to previous echocardiogram on 06/21/2022. Status: Chronic Plan - per above: continue diuresis, OT to assess for lymphedema treatment, TTE - will likely need 1-2 more days here for management of the above problems - therapies following to assist with d/c planning Subjective Date Seen: 08/25/24 Interval history: Sydnie was admitted to the hospital last night for dyspnea in the setting of clinical fluid overload with worsening LE edema/lymphedema. Furosemide gtt was initiated. Since admission, she has diuresed 6L and oxygen needs have decreased. Potassium remains stable, BG 139-240 (on home Jardiance + Glargine insulin + SSI). Remains in rate controlled atrial fibrillation. She has no chest pain, dyspnea at rest, or other concerns for hospitalist team this morning. Exam Narrative: Exam Narrative: GEN: Alert and oriented, laying comfortably in bed HEENT: EOMIs bilaterally, no scleral icterus CV: Irregularly irregular, soft systolic murmur R: Decreased bibasilar breath sounds, no significant expiratory wheezing noted this morning Ab: Soft, nontender Ext: Significant edema of bilateral lower extremities (patient notes improvement from admission) Neuro: No focal deficits or resting tremor, gait not observed Psych: Appropriate Const: Vital Signs, click to edit/add: Vital Signs - 24 hr 08/24/24 13:10 08/24/24 13:21 08/24/24 13:34 Temperature Pulse Rate 70 Pulse Rate [Pulse Oximeter] 76 Pulse Rate [Right Pulse Oximeter] Respiratory Rate 28 H 22 22 Blood Pressure Blood Pressure [Ri ght Upper Arm] 134/73 Blood Pressure [r forearm] Pulse Oximetry 85 L 95 94 Oxygen Delivery Me thod Room Air Nasal Cannula Oxygen Flow Rate 2 08/24/24 13:45 08/24/24 14:00 08/24/24 14:02 Temperature Pulse Rate 70 67 69 Pulse Rate [Pulse Oximeter] Pulse Rate [Right Pulse Oximeter] Respiratory Rate 24 22 23 Blood Pressure 110/88 Blood Pressure [Ri ght Upper Arm] Blood Pressure [r forearm] Pulse Oximetry 98 96 93 Oxygen Delivery Me thod Oxygen Flow Rate 08/24/24 14:03 08/24/24 14:34 08/24/24 14:45 Temperature Pulse Rate 66 65 73 Pulse Rate [Pulse Oximeter] Pulse Rate [Right Pulse Oximeter] Respiratory Rate 23 24 23 Blood Pressure Blood Pressure [Ri ght Upper Arm] Blood Pressure [r forearm] Pulse Oximetry 93 94 95 Oxygen Delivery Me thod Oxygen Flow Rate 08/24/24 14:53 08/24/24 14:54 08/24/24 15:00 Temperature Pulse Rate 71 78 71 Pulse Rate [Pulse Oximeter] Pulse Rate [Right Pulse Oximeter] Respiratory Rate 29 H 24 24 Blood Pressure 121/73 Blood Pressure [Ri ght Upper Arm] Blood Pressure [r forearm] Pulse Oximetry 91 92 Oxygen Delivery Me thod Oxygen Flow Rate 08/24/24 15:02 08/24/24 15:15 08/24/24 15:30 Temperature Pulse Rate 61 70 74 Pulse Rate [Pulse Oximeter] Pulse Rate [Right Pulse Oximeter] Respiratory Rate 24 16 12 Blood Pressure 103/66 Blood Pressure [Ri ght Upper Arm] Blood Pressure [r forearm] Pulse Oximetry 93 91 93 Oxygen Delivery Me thod Oxygen Flow Rate 08/24/24 15:45 08/24/24 16:33 08/24/24 17:13 Temperature 98.0 F Pulse Rate 65 Pulse Rate [Pulse Oximeter] Pulse Rate [Right Pulse Oximeter] 69 Respiratory Rate 28 H Blood Pressure Blood Pressure [Ri ght Upper Arm] Blood Pressure [r forearm] 142/75 H Pulse Oximetry 94 90 Oxygen Delivery Me thod Nasal Cannula Oxygen Flow Rate 3 08/24/24 17:13 08/24/24 19:00 08/24/24 23:00 Temperature 98.0 F Pulse Rate 76 Pulse Rate [Pulse Oximeter] Pulse Rate [Right Pulse Oximeter] 71 Respiratory Rate 28 H 26 H Blood Pressure Blood Pressure [Ri ght Upper Arm] Blood Pressure [r forearm] 113/62 Pulse Oximetry 90 91 Oxygen Delivery Me thod Nasal Cannula Nasal Cannula Oxygen Flow Rate 3 3 08/25/24 00:25 08/25/24 00:25 08/25/24 00:30 Temperature Pulse Rate Pulse Rate [Pulse Oximeter] Pulse Rate [Right Pulse Oximeter] Respiratory Rate 22 22 Blood Pressure Blood Pressure [Ri ght Upper Arm] Blood Pressure [r forearm] Pulse Oximetry 89 89 Oxygen Delivery Me thod Nasal Cannula Oxygen Flow Rate 3 08/25/24 00:30 08/25/24 04:15 08/25/24 07:00 Temperature 98.1 F 97.9 F 97.6 F Pulse Rate Pulse Rate [Pulse Oximeter] Pulse Rate [Right Pulse Oximeter] 75 84 91 Respiratory Rate 22 22 20 Blood Pressure Blood Pressure [Ri ght Upper Arm] Blood Pressure [r forearm] 120/69 116/66 133/79 Pulse Oximetry 89 92 90 Oxygen Delivery Me thod Nasal Cannula CPAP Nasal Cannula CPAP Nasal Cannula CPAP Oxygen Flow Rate 3 3 1 08/25/24 07:00 08/25/24 07:00 Temperature Pulse Rate Pulse Rate [Pulse Oximeter] Pulse Rate [Right Pulse Oximeter] Respiratory Rate 20 Blood Pressure Blood Pressure [Ri ght Upper Arm] Blood Pressure [r forearm] Pulse Oximetry 90 90 Oxygen Delivery Me thod Nasal Cannula CPAP Oxygen Flow Rate 1 Labs Labs: Laboratory Results - last 24 hr 08/24/24 08/24/24 08/24/24 13:24 14:05 15:25 WBC 6.45 RBC 5.09 Hgb 15.7 Hct 50.2 MCV 99 MCH 31 MCHC 31 L RDW Coeff of Aby 15.6 H Plt Count 205 Neut % (Auto) 78.0 H Lymph % (Auto) 11.9 L Woodward % (Auto) 6.8 Eos % (Auto) 2.8 Baso % (Auto) 0.3 Neut # (Auto) 5.00 Lymph # (Auto) 0.80 L Woodward # (Auto) 0.40 Eos # (Auto) 0.18 Baso # (Auto) 0.02 Abs Immat Gran (auto) 0.01 Imm/Tot Granulo (auto) 0.2 INR 2.81 H VBG pH VBG pCO2 VBG pO2 VBG HCO3 Sodium 138 Potassium 4.4 Chloride 102 Carbon Dioxide 28 Anion Gap 8 BUN 14 Creatinine 1.1 Estimated Creat Clear 42.64 Estimated GFR 53 Glucose 124 H Calcium 8.5 Magnesium 1.5 Troponin I < 0.01 L NT-Pro-B Natriuret Pep 3370 SARS-CoV-2 (PCR) Negative SARS-CoV-2 Influenza Type A (PCR) Negative PCR FLU A Influenza Type B (PCR) Negative PCR FLU B RSV (PCR) Negative PCR RSV Lab Acknowledgement Test Added 08/25/24 05:49 WBC 5.83 RBC 5.04 Hgb 15.5 Hct 49.2 MCV 98 MCH 31 MCHC 32 RDW Coeff of Aby 15.4 Plt Count 180 Neut % (Auto) 93.8 H Lymph % (Auto) 5.0 L Woodward % (Auto) 1.0 Eos % (Auto) 0.0 Baso % (Auto) 0.0 Neut # (Auto) 5.50 Lymph # (Auto) 0.30 L Woodward # (Auto) 0.10 Eos # (Auto) 0.00 Baso # (Auto) 0.00 Abs Immat Gran (auto) 0.01 Imm/Tot Granulo (auto) 0.2 INR 2.68 H VBG pH 7.393 VBG pCO2 53 H VBG pO2 < 30.1 VBG HCO3 32 H Sodium 136 Potassium 4.5 Chloride 100 Carbon Dioxide 31 Anion Gap 5 L BUN 17 Creatinine 1.2 Estimated Creat Clear 37.57 Estimated GFR 48 Glucose 224 H Calcium 8.5 Magnesium 1.7 Troponin I NT-Pro-B Natriuret Pep SARS-CoV-2 (PCR) Influenza Type A (PCR) Influenza Type B (PCR) RSV (PCR) Lab Acknowledgement
--- NOTE | 2024-08-25 13:29 | NUTR.NU ---
RDN with diet education related to current diet order. Patient admitted for CHF Exacerbation. RDN attempted to visit with patient multiple times to offer diet education, however patient was not available on all attempts. RDN will attempt at later date.
[2024-08-25 14:40] LABS: Chloride* 97 mmol/L (96-114); Sodium* 137 mmol/L (135-149)
[2024-08-25 14:41] LABS: Potassium* 3.7 mmol/L (3.6-5.1)
[2024-08-25 14:43] LABS: Blood Urea Nitrogen* 22 mg/dL (7-30); Creatinine* 1.2 mg/dL (0.5-1.5); Est. Creatinine Clearance* 37.57; Estimated Glomerular Filt Rate 48 ml/min
[2024-08-25 14:44] LABS: Anion Gap 10 mEq/L (7-15); Calcium* 8.8 mg/dL (8.4-10.6); Carbon Dioxide* 30 mmol/L (20-32); Glucose* 242 mg/dL (60-115)
[2024-08-25] MEDS: WARFARIN 2.5 MG TABLET PO (17:22)
[2024-08-25] MEDS: NICOTINE 21 MG PATCH 1 PATCH TRANSDERMA (17:25)
[2024-08-25] MEDS: POTASSIUM CHLORIDE 10 MEQ CAPSULE ER 40 MEQ PO (17:28)
--- NOTE | 2024-08-25 18:32 | PC.NURSE ---
End of shift [id number]: AxOx4. Pt titrating between 1-2 L of oxygen NC with sats around 90%. Pt non complaint with cares, encouragement and reinforcement needed at this time. Therapies saw Pt today. A1 GB W. Forde in place, patent and draining. Pt non compliant with heart healthy diet. SL after the furosemide fluid completion. Double tube x ray developer in place of the BLE, tolerating well. Reports no pain throughout the shift. Pt appears resting watching television with call light in reach.
[2024-08-25] MEDS: INSULIN GLARGINE,HUM.REC.ANLOG 100 UNIT/ML INSULN.PEN 25 UNIT SUBCUT (21:27)
[2024-08-25] MEDS: FUROSEMIDE 10 MG/ML inj 60 MG IVP (23:55)
[2024-08-26] VITALS (8 sets, daily range): BP systolic 116–131; BP diastolic 69–87; PULSE 62–98; RESP 20–24; TEMP 36.4–36.9; O2SAT 88–92
[2024-08-26 06:26] LABS: Basophils Absolute Auto 0.01 K/uL (0.00-0.30); Basophils Percent Auto 0.1 % (0.0-3.0); Hematocrit 48.9 % (33.0-51.0); Hemoglobin* 15.7 gm/dL (12.0-16.0); Immature Granulocytes Abs Auto 0.02 K/uL (0.00-0.30); Immature Granulocytes Pct Auto 0.2 %; Lymphocytes Percent Auto 4.7 % (20-44); Mean Corpuscular HGB Conc 32 gm/dL (32-36); Mean Corpuscular Hemoglobin 31 pg (26-34); Mean Corpuscular Volume 97 fL (80-100); Monocytes Percent Auto 5.2 % (0.0-11.0); Neutrophils Percent Auto 89.8 % (42.0-72.0); Platelet Count* 216 K/uL (140-440); RDW Coefficient of Variation % 15.4 % (11.5-15.5); Red Blood Count 5.06 m/uL (4.00-5.20); White Blood Count* 10.26 K/uL (4.50-11.00)
[2024-08-26 06:42] LABS: Chloride* 95 mmol/L (96-114); Potassium* 3.9 mmol/L (3.6-5.1); Sodium* 138 mmol/L (135-149)
[2024-08-26 06:45] LABS: Anion Gap 7 mEq/L (7-15); Blood Urea Nitrogen* 29 mg/dL (7-30); Carbon Dioxide* 36 mmol/L (20-32); Creatinine* 1.2 mg/dL (0.5-1.5); Est. Creatinine Clearance* 37.57; Estimated Glomerular Filt Rate 48 ml/min
[2024-08-26 06:46] LABS: Calcium* 8.8 mg/dL (8.4-10.6); Glucose* 178 mg/dL (60-115)
--- NOTE | 2024-08-26 07:01 | PC.NURSE ---
Shift note ([id number]): Patient pleasant, alert and oriented. Reported discomfort in legs bilaterally. Lotion applied to dry lower extremities. Tubigrips removed and Shun wraps applied at 0330. Catheter patent and draining pale yellow urine. ?
[2024-08-26 07:07] LABS: Slide Review Reflex No
[2024-08-26 07:14] LABS: INR 2.69 (0.91-1.10); Prothrombin Time 29.8 Seconds
[2024-08-26] MEDS: POTASSIUM CHLORIDE 10 MEQ CAPSULE ER 40 MEQ PO ×2 (09:31→17:23)
[2024-08-26] MEDS: dilTIAZem 240 MG CAP (CD) PO (09:31)
[2024-08-26] MEDS: SODIUM CHLORIDE 0.9 % (FLUSH) 10 ML SYRINGE 5 ML IVF ×2 (09:32→21:43)
[2024-08-26] MEDS: IPRAT-ALBUT 0.5-2.5 MG/3 ML NEB 1 NEB IH ×4 (09:33→21:40)
[2024-08-26] MEDS: GABAPENTIN 300 MG CAPSULE 600 MG PO ×2 (09:33→21:39)
[2024-08-26] MEDS: METOPROLOL SUCCINATE (XL) 100 MG TAB 200 MG PO (09:33)
[2024-08-26] MEDS: EMPAGLIFLOZIN 25 MG TABLET PO (09:34)
[2024-08-26] MEDS: INSULIN ASPART 100 UNIT/ML SUBCUT ×4 (09:35→21:56)
[2024-08-26] MEDS: FUROSEMIDE 10 MG/ML inj 60 MG IVP ×2 (09:35→16:43)
--- NOTE | 2024-08-26 10:05 | NUTR.NU ---
GARRICKN with diet education related to Heart Healthy diet order. Patient admitted for CHF exacerbation. Current weight 345lb 9.6oz; height 5ft 5.75in; BMI 56.2 kg/m2. Weight has decreased during admit due to fluid and diuresis. Current diet order is Heart Healthy. Meal intakes since admit have been 75%+. GARRICKN visited with patient whom reports not wanting to be on a heart healthy diet anymore. She does not follow a diet at home. She declined diet education today related to heart healthy diet. She has not questions or concerns for RDN. GARRICKN informed charge nurse of patient requesting diet order change to inform MD. Will continue to monitor.
--- NOTE | 2024-08-26 11:10 | PM.IMPN1 ---
Progress Note: A&P Assessment and plan (1) CHF exacerbation: Problem details: - unsure of dry weight, appeared to be 30+ pounds over on admission - Furosemide gtt initiated 08/24, will transition to IV Furosemide 08/25 (has received 10mg of Lasix/hr, 240mg/first 24 hours of stay) - continue furosemide 60mg of IV Lasix Q8H - 180mg/24hr - continue home meds for CHF: Metoprolol, Jardiance, diuretics (unclear compliance at home with meds) - weight down 12 kg - patient does not want to discharge home with supplemental oxygen but understands she may need to. Assess for need prior to discharge - TTE 08/26 Final Impressions: 1. Normal LV size, borderline wall thickness, normal global systolic function with an estimated EF of 60 - 65%. 2. Right ventricular cavity size is moderately enlarged, global systolic RV function is mildly reduced. 3. Moderately enlarged left atrium. 4. The aortic valve is calcified, moderate stenosis and no regurgitation. The aortic valve peak velocity is 3.2 m/s, the peak gradient is 41 mmHg, and the mean gradient is 18 mmHg. The aortic valve area is 1.29 cm?? with a dimensionless index of 0.31. The stroke volume index is 32.0 ml/m??. 5. The mitral valve is sclerotic, moderate mitral regurgitation. 6. The inferior vena cava is dilated, respiratory size variation less than 50%, consistent with elevated right atrial pressure. 7. Severely increased estimated pulmonary pressures by tricuspid regurgitation velocity and right atrial pressure (55 mmHg plus RAP). 8. Technically limited exam. 9. Tricuspid valve is normal and moderate-severe tricuspid regurgitation. Outpatient follow-up with Cardiology following discharge Status: Acute (2) COPD exacerbation: Problem details: - wheezing on admission, improved 08/25 Status: Resolved (3) Physical debility: Problem details: - multifactorial including morbid obesity, deconditioning, heart failure, lymphedema, COPD - therapies ordered Status: Acute (4) Chronic acquired lymphedema: Problem details: - OT ordered to help with lymphedema therapies - continue with outpatient lymphedema clinic Status: Acute (5) Chronic anticoagulation: Problem details: - currently on warfarin, Apixiban recommended, patient with discuss with PCP (Dr. Rincon) Status: Acute (6) Pulmonary hypertension: Problem details: - known history of this, repeat TTE - Transthoracic echocardiogram 02/11/2023: 1. Normal LV size, thickness. EF 55-60%. No regional wall motion abnormalities. 2. RV normal size. 3. Moderate to severe biatrial enlargement. 4. Trace tricuspid regurgitation. Elevated right ventricular systolic pressure consistent with severe pulmonary hypertension. 5. Findings similar to previous echocardiogram on 06/21/2022. - repeat echocardiogram 08/26/24 as above with noted changes. Questionable medication compliance. Outpatient follow-up with cardiology recommended Status: Chronic Plan - per above: continue diuresis, OT to assess for lymphedema treatment - will likely need 1-2 more days here for management of the above problems - therapies following to assist with d/c planning Time Spent With Patient Total time spent: Today I spent 45 minutes seeing the patient, discussing the patient with ER staff, reviewing Expanse and Epic notes/diagnostics, discussing the care plan with our team that includes social work, PT/OT, pharmacy, RT, detention and documenting my impressions and plan in the medical record. Subjective Date Seen: 08/26/24 Interval history: Patient is seen sitting reclined in bed. Reports breathing has improved. Remains on supplemental oxygen with some dyspnea. Denies chest pain. Has occasional headaches prior to bed. No dizziness. Legs feel heavy at night. Remains afebrile. Anxious to go home. Does not want to discharge home with supplemental oxygen. Exam Narrative: Exam Narrative: PHYSICAL EXAM General: Pleasant, conversant, NAD HEENT: Normocephalic, atraumatic, sclera white, EOMI, oral mucosa moist Cardiovascular: RRR, S1S2. Bilateral +2 pitting edema, wraps in place Pulmonary: Diffusely diminished. Mild dyspnea on 2 L NC Abdominal: Soft, nondistended, NTTP Neurological: Alert, answering questions appropriately, cranial nerves intact, no focal findings Extremities: No gross joint deformity or swelling. AROMI. Neurovascularly intact Skin: Warm, dry. Const: Vital Signs, click to edit/add: Vital Signs - 24 hr 08/25/24 12:46 08/25/24 15:00 08/25/24 15:00 Temperature 98.1 F Pulse Rate 86 Pulse Rate [Right Pulse Oximeter] 81 Respiratory Rate 20 20 Blood Pressure [r forearm] 122/68 Pulse Oximetry 89 89 Oxygen Delivery Me thod Nasal Cannula Nasal Cannula Oxygen Flow Rate 2 2 08/25/24 15:00 08/25/24 15:00 08/25/24 19:00 Temperature 97.4 F L Pulse Rate 87 Pulse Rate [Right Pulse Oximeter] 73 Respiratory Rate 18 Blood Pressure [r forearm] 111/62 Pulse Oximetry 89 98 Oxygen Delivery Me thod Room Air Oxygen Flow Rate 08/25/24 22:19 08/25/24 22:19 08/25/24 22:19 Temperature 97.7 F Pulse Rate Pulse Rate [Right Pulse Oximeter] 81 Respiratory Rate 20 18 Blood Pressure [r forearm] 116/66 Pulse Oximetry 91 91 91 Oxygen Delivery Me thod Nasal Cannula Nasal Cannula Oxygen Flow Rate 2 2 08/25/24 23:00 08/26/24 03:00 08/26/24 07:00 Temperature 97.5 F L Pulse Rate 71 62 Pulse Rate [Right Pulse Oximeter] 69 Respiratory Rate 20 Blood Pressure [r forearm] 117/81 Pulse Oximetry 92 Oxygen Delivery Me thod Nasal Cannula Oxygen Flow Rate 2 08/26/24 09:00 08/26/24 09:00 08/26/24 09:00 Temperature 97.9 F Pulse Rate Pulse Rate [Right Pulse Oximeter] 74 Respiratory Rate 24 24 Blood Pressure [r forearm] 119/87 Pulse Oximetry 91 91 91 Oxygen Delivery Me thod Nasal Cannula Nasal Cannula Oxygen Flow Rate 2 2 Labs Labs: Laboratory Results - last 24 hr 08/25/24 08/26/24 14:13 05:52 WBC 10.26 RBC 5.06 Hgb 15.7 Hct 48.9 MCV 97 MCH 31 MCHC 32 RDW Coeff of Aby 15.4 Plt Count 216 Neut % (Auto) 89.8 H Lymph % (Auto) 4.7 L Jones % (Auto) 5.2 Eos % (Auto) 0.0 Baso % (Auto) 0.1 Neut # (Auto) 9.20 H Lymph # (Auto) 0.50 L Jones # (Auto) 0.50 Eos # (Auto) 0.00 Baso # (Auto) 0.01 Abs Immat Gran (auto) 0.02 Imm/Tot Granulo (auto) 0.2 INR 2.69 H Sodium 137 138 Potassium 3.7 3.9 Chloride 97 95 L Carbon Dioxide 30 36 H Anion Gap 10 7 BUN 22 29 Creatinine 1.2 1.2 Estimated Creat Clear 37.57 37.57 Estimated GFR 48 48 Glucose 242 H 178 H Calcium 8.8 8.8
[2024-08-26] MEDS: NYSTATIN POWDER 1 APPLIC TOPICAL ×2 (11:36→22:06)
--- NOTE | 2024-08-26 15:06 | PC.NURSE ---
Patient is on 2 L nasal cannula. Redness was noted in the abdominal folds and under breasts, nystatin was applied. 2+ pitting edema present in bilateral lower extremities. Tube transfer station operator applied to bilateral lower extremities. Ambulates with assist of 1, gait belt and walker. Patient was not receptive to heart healthy diet. Patient is now on regular diet.
[2024-08-26] MEDS: NICOTINE 21 MG PATCH 1 PATCH TRANSDERMA (17:22)
[2024-08-26] MEDS: WARFARIN 2.5 MG TABLET PO (17:22)
[2024-08-26] MEDS: ATORVASTATIN CALCIUM 40 MG TABLET 80 MG PO (21:39)
[2024-08-26] MEDS: INSULIN GLARGINE,HUM.REC.ANLOG 100 UNIT/ML INSULN.PEN 25 UNIT SUBCUT (21:55)
[2024-08-27] VITALS (7 sets, daily range): BP systolic 109–130; BP diastolic 65–74; PULSE 78–94; RESP 18–21; TEMP 36.4–36.8; O2SAT 90–93
[2024-08-27] MEDS: FUROSEMIDE 10 MG/ML inj 60 MG IVP ×3 (00:36→15:45)
[2024-08-27 03:37] LABS: Chloride* 90 mmol/L (96-114); Potassium* 3.7 mmol/L (3.6-5.1); Sodium* 138 mmol/L (135-149)
[2024-08-27 03:40] LABS: Blood Urea Nitrogen* 42 mg/dL (7-30); Calcium* 8.2 mg/dL (8.4-10.6); Creatinine* 1.4 mg/dL (0.5-1.5); Estimated Glomerular Filt Rate 40 ml/min; Glucose* 196 mg/dL (60-115)
[2024-08-27 03:47] LABS: Anion Gap 11 mEq/L (7-15); Carbon Dioxide* 37 mmol/L (20-32)
[2024-08-27 03:53] LABS: Troponin I* < 0.01 ng/mL (0.01-0.04)
--- NOTE | 2024-08-27 04:07 | W.PM.THH&P_ITS ---
Telehealth- H&P: HPI History of Present Illness Date Seen: 08/27/24 Chief complaint: SOB Narrative: Sydnie Parkinson is seen as an Interactive Telehealth visit. Sydnie Parkinson is a 73 year old male who is [facility] Medical History (Updated 08/26/24 @ 11:27 by Candice Alfonso PA-C) Smoking greater than 40 pack years ?F17.210 - Nicotine dependence, cigarettes, uncomplicated (ICD-10) Urinary incontinence ?R32 - Unspecified urinary incontinence (ICD-10) Chronic obstructive pulmonary disease ?J44.9 - Chronic obstructive pulmonary disease, unspecified (ICD-10) Physical deconditioning ?R53.81 - Other malaise (ICD-10) Physical debility ?R53.81 - Other malaise (ICD-10) Major depressive disorder ?F32.9 - Major depressive disorder, single episode, unspecified (ICD-10) Diabetic peripheral neuropathy associated with type 2 diabetes mellitus ?E11.42 - Type 2 diabetes mellitus with diabetic polyneuropathy (ICD-10) Chronic kidney disease, stage III (moderate) ?N18.30 - Chronic kidney disease, stage 3 unspecified (ICD-10) Migraine ?G43.909 - Migraine, unspecified, not intractable, without status migrainosus (ICD-10) Vitamin D deficiency ?E55.9 - Vitamin D deficiency, unspecified (ICD-10) History of rectal bleeding ?Z87.19 - Personal history of other diseases of the digestive system (ICD-10) Allergic rhinitis ?J30.9 - Allergic rhinitis, unspecified (ICD-10) Tobacco dependence ?F17.200 - Nicotine dependence, unspecified, uncomplicated (ICD-10) Morbid obesity with BMI of 50.0-59.9, adult ?E66.01 - Morbid (severe) obesity due to excess calories (ICD-10) ?Z68.43 - Body mass index [BMI] 50.0-59.9, adult (ICD-10) Chronic acquired lymphedema ?I89.0 - Lymphedema, not elsewhere classified (ICD-10) Obstructive sleep apnea on CPAP ?G47.33 - Obstructive sleep apnea (adult) (pediatric) (ICD-10) Anticoagulation goal of INR 2 to 3 ?Z51.81 - Encounter for therapeutic drug level monitoring (ICD-10) ?Z79.01 - custodial (current) use of anticoagulants (ICD-10) Chronic anticoagulation ?Z79.01 - rat exterminator (current) use of anticoagulants (ICD-10) Paroxysmal atrial fibrillation ?I48.0 - Paroxysmal atrial fibrillation (ICD-10) History of tachycardia-bradycardia syndrome ?Z86.79 - Personal history of other diseases of the circulatory system (ICD- 10) Pulmonary hypertension ?I27.20 - Pulmonary hypertension, unspecified (ICD-10) Heart failure with preserved ejection fraction ?I50.30 - Unspecified diastolic (congestive) heart failure (ICD-10) Chronic diastolic heart failure ?I50.32 - Chronic diastolic (congestive) heart failure (ICD-10) Acute hypoxic respiratory failure ?J96.01 - Acute respiratory failure with hypoxia (ICD-10) Insulin-requiring or dependent type II diabetes mellitus ?E11.9 - Type 2 diabetes mellitus without complications (ICD-10) ?Z79.4 - custodial (current) use of insulin (ICD-10) Surgical History H/O hernia repair ?Z98.890 - Other specified postprocedural states (ICD-10) ?Z87.19 - Personal history of other diseases of the digestive system (ICD-10) History of total abdominal hysterectomy and bilateral salpingo-oophorectomy ?Z90.710 - Acquired absence of both cervix and uterus (ICD-10) ?Z90.722 - Acquired absence of ovaries, bilateral (ICD-10) ?Z90.79 - Acquired absence of other genital organ(s) (ICD-10) History of total left knee replacement (TKR) ?Z96.652 - Presence of left artificial knee joint (ICD-10) History of total right knee replacement ?Z96.651 - Presence of right artificial knee joint (ICD-10) History of total left hip replacement ?Z96.642 - Presence of left artificial hip joint (ICD-10) History of total right hip replacement ?Z96.641 - Presence of right artificial hip joint (ICD-10) Family History Mother Cancer Social History (Updated 08/24/24 @ 17:35 by Lavelle Morales MD) Narrative: Lives alone. Receives extra help and support in her home due to underlying evolving physical debility and physically deconditioned state. Designates her cousin, Heather Walker, as her primary healthcare power of employee benefits attorney should that be required, . Secondary POA would be her brother, Elfego Parkinson. Requests DNR DNI resuscitation status in the event of cardiopulmonary demise. Smokes 1-1.5 pack of cigarettes a day for over 50 years. Does not drink alcohol. She gets around her home with an electric scooter. She is able to stand and walk holding on with a cane or holding onto zhao furniture counter tops. She reports that she thinks things are going well in her home situation. She has [facility] home healthcare with Dr. Rincon and Jacquie Haley [facility] and nursing care frequently doing home visits. What is your current living situation?: I presently have a place to live Problems where you live: no known problems Problems where you live details: N/A In the past 12 months, utilities in danger of being shut off: no In past 12 months, lack of transportation kept you from medical appts, meetings, work, or getting things needed for daily living: no In the past 12 mos, have been you worried that your food would run out before you had money to buy more?: never true In the past 12 mos, the food you bought just didn't last and you didn't have money to buy more?: never true Highest level of school completed/degree received: some college, no degree Smoking Status: Current every day smoker What tobacco products do you use: cigarettes Smoking packs per day: 1 Smoking cigarettes per day: 20.0 Smoking quit date/years: >15 years ago Do you use any of these nicotine containing products: None How often do you have a drink containing alcohol: never How often do you have six or more drinks on one occasion: Never AUDIT-C Alcohol total score: 0 Non-prescribed substance use: denies use Caffeine: Yes How often does anyone, including family, friends and others, physically hurt you : never How often does anyone, including family, friends and others, insult or talk down to you: never How often does anyone, including family, friends and others, threaten you with harm: never How often does anyone, including family, friends and others, scream or curse at you: never service: No Meds Home Medications and Allergies Home Medications ?Medication ?Instructions ?Recorded ?Confirmed ?Type acetaminophen 500 mg tablet 1,000 mg PO Q6H PRN 04/07/23 08/24/24 History (Tylenol Extra Strength) albuterol sulfate 90 mcg/actuation 2 puff inhalation Q4H PRN dyspnea 04/07/23 08/24/24 History aerosol inhaler atorvastatin 80 mg tablet 80 mg PO HS 04/07/23 08/24/24 History bumetanide 1 mg tablet 3 mg PO DAILY 04/07/23 08/24/24 History cholecalciferol (vitamin D3) 25 25 mcg PO DAILY 04/07/23 08/24/24 History mcg (1,000 unit) capsule diltiazem HCl 240 mg 240 mg PO DAILY 04/07/23 08/24/24 History capsule,extended release 24 hr insulin glargine 100 unit/mL (3 25 unit subcut HS 04/07/23 08/24/24 History mL) subcutaneous pen (Lantus Solostar U-100 Insulin) metoprolol succinate 200 mg 200 mg PO DAILY 04/07/23 08/24/24 History tablet,extended release 24 hr potassium chloride 20 mEq 40 meq PO BID 04/07/23 08/24/24 History tablet,extended release warfarin 2.5 mg tablet 2.5 - 3.75 mg PO QPM 04/07/23 08/24/24 History empagliflozin 25 mg tablet 25 mg PO DAILY 08/24/24 08/24/24 History (Jardiance) fluconazole 150 mg tablet 150 mg PO DAILY PRN 08/24/24 08/24/24 History gabapentin 300 mg capsule 600 mg PO BID 08/24/24 08/24/24 History metolazone 2.5 mg tablet 2.5 mg PO DAILY PRN 08/24/24 08/24/24 History nystatin 100,000 unit/gram topical 1 applic topical BID PRN 08/24/24 08/24/24 History cream nystatin 100,000 unit/gram topical 1 applic topical QID PRN 08/24/24 08/24/24 History powder pen needle, diabetic 29 gauge x 08/24/24 08/24/24 History 1/2 (BD Ultra-Fine Original Pen Needle) semaglutide 0.25 mg or 0.5 mg (2 0.25 mg subcut Q7D 08/24/24 08/24/24 History mg/3 mL) subcutaneous pen injector (Ozempic) Allergies Allergy/AdvReac Type Severity Reaction Status Date / Time No Known Drug Allergies Allergy Verified 04/07/23 13:47 Exam Narrative Exam Narrative: Physical Exam GENERAL: ?vital signs reviewed, well developed and nourished, in no distress HEENT: pupils are equal round and reactive to light, extraocular movements are grossly within normal limits and oral mucosa is moist. NECK: Supple without lymphadenopathy or thyromegaly according to nursing staff examination observation HEART: Regular rate and rhythm without any rubs, murmurs, or gallops. LUNGS: Clear to auscultation bilaterally with good air movement throughout ABDOMEN: Observation from nurse assisted exam, abdomen appears soft, nontender, and nondistended with Positive bowel sounds noted. EXTREMITIES: Strength and sensation is observed to be grossly within normal limits in the upper and lower extremities.? No focal strength deficit is observed. SKIN:? Observed warm and dry with color normal Const Vital Signs, click to edit/add: Vital Signs - 24 hr 08/26/24 07:00 08/26/24 09:00 08/26/24 09:00 Temperature Pulse Rate 62 Pulse Rate [Right Pulse Oximeter] Respiratory Rate 24 Blood Pressure [r forearm] Pulse Oximetry 91 91 Oxygen Delivery Method Nasal Cannula Oxygen Flow Rate 2 08/26/24 09:00 08/26/24 09:00 08/26/24 11:00 Temperature 97.9 F 98.1 F Pulse Rate Pulse Rate [Right Pulse Oximeter] 74 74 86 Respiratory Rate 24 24 22 Blood Pressure [r forearm] 119/87 131/74 Pulse Oximetry 91 91 Oxygen Delivery Method Nasal Cannula Nasal Cannula Oxygen Flow Rate 2 2 08/26/24 15:00 08/26/24 15:00 08/26/24 15:00 Temperature Pulse Rate 85 Pulse Rate [Right Pulse Oximeter] 90 Respiratory Rate 22 Blood Pressure [r forearm] Pulse Oximetry 91 Oxygen Delivery Method Oxygen Flow Rate 08/26/24 15:00 08/26/24 15:00 08/26/24 19:00 Temperature 98.4 F 97.8 F Pulse Rate Pulse Rate [Right Pulse Oximeter] 90 98 Respiratory Rate 22 22 22 Blood Pressure [r forearm] 120/69 116/75 Pulse Oximetry 90 90 88 Oxygen Delivery Method Nasal Cannula Nasal Cannula Nasal Cannula Oxygen Flow Rate 2 2 2 08/26/24 22:39 08/26/24 22:39 08/26/24 22:39 Temperature 98.1 F Pulse Rate Pulse Rate [Right Pulse Oximeter] 90 Respiratory Rate 20 20 Blood Pressure [r forearm] 130/85 Pulse Oximetry 92 92 92 Oxygen Delivery Method Nasal Cannula Nasal Cannula Oxygen Flow Rate 2 2 08/26/24 23:00 08/27/24 01:51 Temperature Pulse Rate 83 Pulse Rate [Right Pulse Oximeter] 80 Respiratory Rate Blood Pressure [r forearm] 114/65 Pulse Oximetry 91 Oxygen Delivery Method Room Air Oxygen Flow Rate Hospitalist - H&P: Result Labs Labs: Short CBC 08/26/24 Range/Units 05:52 WBC 10.26 (4.50-11.00) K/uL Hgb 15.7 (12.0-16.0) gm/dL Hct 48.9 (33.0-51.0) % Plt Count 216 (140-440) K/uL BMP 08/26/24 08/27/24 05:52 03:04 Sodium 138 138 Potassium 3.9 3.7 Chloride 95 L 90 L Carbon Dioxide 36 H 37 H BUN 29 42 H Creatinine 1.2 1.4 Glucose 178 H 196 H Calcium 8.8 8.2 L Cardiac Enzymes 08/27/24 Range/Units 03:04 Troponin I < 0.01 L (0.01-0.04) ng/mL Telehealth: Statement Statement Telehealth Visit: Today's History and Physical is provided via interactive telehealth by Ld Velazco MD.? Patient is located at [facility].? Provider is located at [facility].? Nursing staff assisted with the patient's exam. The visit being done today meets criteria for a telehealth visit and the p atient or patient?s parent/guardian is aware the visit is a telehealth visit.
[2024-08-27 06:24] LABS: Basophils Absolute Auto 0.01 K/uL (0.00-0.30); Basophils Percent Auto 0.1 % (0.0-3.0); Eosinophils Absolute Auto 0.06 K/uL (0.00-0.50); Eosinophils Percent Auto 0.6 % (0.0-7.0); Hematocrit 48.4 % (33.0-51.0); Hemoglobin* 15.5 gm/dL (12.0-16.0); Immature Granulocytes Abs Auto 0.02 K/uL (0.00-0.30); Immature Granulocytes Pct Auto 0.2 %; Mean Corpuscular HGB Conc 32 gm/dL (32-36); Mean Corpuscular Hemoglobin 31 pg (26-34); Mean Corpuscular Volume 98 fL (80-100); Monocytes Percent Auto 8.8 % (0.0-11.0); Neutrophils Percent Auto 77.3 % (42.0-72.0); Platelet Count* 202 K/uL (140-440); RDW Coefficient of Variation % 15.3 % (11.5-15.5); Red Blood Count 4.96 m/uL (4.00-5.20); White Blood Count* 9.38 K/uL (4.50-11.00)
[2024-08-27 06:27] LABS: Slide Review Reflex No
[2024-08-27 06:36] LABS: INR 2.88 (0.91-1.10); Prothrombin Time 31.4 Seconds
[2024-08-27 06:52] LABS: Troponin I* < 0.01 ng/mL (0.01-0.04)
--- NOTE | 2024-08-27 07:46 | PC.NURSE ---
Shift note ([id number]): Patient pleasant, alert and oriented. Reddened abdominal folds cleansed and dried. Pt did not want nystatin applied since it cakes up and stays moist in folds. Intra-dri placed between folds instead. Reported mid chest discomfort at 0150 after eating two pieces of peanut butter toast. Pt reported that she thought it was likely from eating the toast but that it scared her. VSS at that time. EKG obtained and?sprite was given. Ray AVALOS called and was updated. New lab orders obtained from . Pt reported?the Sprite helped but did not completely relieve the?discomfort. Pt declined liquid antacid?or Tums at that time.?She had no further complaints of discomfort and denies any pain at this time. ?
[2024-08-27] MEDS: EMPAGLIFLOZIN 25 MG TABLET PO (07:48)
[2024-08-27] MEDS: POTASSIUM CHLORIDE 10 MEQ CAPSULE ER 40 MEQ PO ×2 (07:48→17:30)
[2024-08-27] MEDS: METOPROLOL SUCCINATE (XL) 100 MG TAB 200 MG PO (07:48)
[2024-08-27] MEDS: GABAPENTIN 300 MG CAPSULE 600 MG PO ×2 (07:48→21:01)
[2024-08-27] MEDS: dilTIAZem 240 MG CAP (CD) PO (07:48)
[2024-08-27] MEDS: SODIUM CHLORIDE 0.9 % (FLUSH) 10 ML SYRINGE 5 ML IVF ×2 (07:49→21:02)
[2024-08-27] MEDS: INSULIN ASPART 100 UNIT/ML SUBCUT ×4 (07:49→21:06)
[2024-08-27] MEDS: IPRAT-ALBUT 0.5-2.5 MG/3 ML NEB 1 NEB IH ×4 (09:14→21:01)
--- NOTE | 2024-08-27 16:34 | PM.IMPN1 ---
Progress Note: A&P Assessment and plan (1) CHF exacerbation: Problem details: - unsure of dry weight, appeared to be 30+ pounds over on admission - Furosemide gtt initiated 08/24, will transition to IV Furosemide 08/25 (has received 10mg of Lasix/hr, 240mg/first 24 hours of stay) - continue furosemide 60mg of IV Lasix Q8H - 180mg/24hr - continue home meds for CHF: Metoprolol, Jardiance, diuretics (unclear compliance at home with meds) - weight down 12 kg - patient does not want to discharge home with supplemental oxygen but understands she may need to. Assess for need prior to discharge - 08/27 wt continues to improve, Cr increased slightly today, 1.2 to 1.4. Decrease frequency of lasix. Recheck Cr in am - TTE 08/26 Final Impressions: 1. Normal LV size, borderline wall thickness, normal global systolic function with an estimated EF of 60 - 65%. 2. Right ventricular cavity size is moderately enlarged, global systolic RV function is mildly reduced. 3. Moderately enlarged left atrium. 4. The aortic valve is calcified, moderate stenosis and no regurgitation. The aortic valve peak velocity is 3.2 m/s, the peak gradient is 41 mmHg, and the mean gradient is 18 mmHg. The aortic valve area is 1.29 cm?? with a dimensionless index of 0.31. The stroke volume index is 32.0 ml/m??. 5. The mitral valve is sclerotic, moderate mitral regurgitation. 6. The inferior vena cava is dilated, respiratory size variation less than 50%, consistent with elevated right atrial pressure. 7. Severely increased estimated pulmonary pressures by tricuspid regurgitation velocity and right atrial pressure (55 mmHg plus RAP). 8. Technically limited exam. 9. Tricuspid valve is normal and moderate-severe tricuspid regurgitation. Outpatient follow-up with Cardiology following discharge Status: Acute (2) COPD exacerbation: Problem details: - wheezing on admission, improved 08/25 Status: Resolved (3) Physical debility: Problem details: - multifactorial including morbid obesity, deconditioning, heart failure, lymphedema, COPD - therapies ordered Status: Acute (4) Chronic acquired lymphedema: Problem details: - OT ordered to help with lymphedema therapies - continue with outpatient lymphedema clinic Status: Acute (5) Chronic anticoagulation: Problem details: - currently on warfarin, Apixiban recommended, patient with discuss with PCP (Dr. Rincon) - 08/27 INR therapeutic Status: Acute (6) Pulmonary hypertension: Problem details: - known history of this, repeat TTE - Transthoracic echocardiogram 02/11/2023: 1. Normal LV size, thickness. EF 55-60%. No regional wall motion abnormalities. 2. RV normal size. 3. Moderate to severe biatrial enlargement. 4. Trace tricuspid regurgitation. Elevated right ventricular systolic pressure consistent with severe pulmonary hypertension. 5. Findings similar to previous echocardiogram on 06/21/2022. - repeat echocardiogram 08/26/24 as above with noted changes. Questionable medication compliance. Will likely need outpatient oxygen. Outpatient follow-up with cardiology recommended Status: Chronic Plan - per above: continue diuresis, decrease intensity of diuresis due to Cr upward trending, OT to assess for lymphedema treatment - will likely need 1-2 more days here for management of the above problems, may need home oxygen - therapies following to assist with d/c planning Time Spent With Patient Total time spent: Today I spent 40 minutes seeing the patient, reviewing Expanse and Epic notes/diagnostics, discussing the care plan with our team that includes social work, PT/OT, pharmacy, RT, longterm and documenting my impressions and plan in the medical record. Subjective Time Seen by Provider: 12:23 Date Seen: 08/27/24 Interval history: Sydnie was tearful. She does not want home oxygen. She is still getting a lot of UO with q8H IV furosemide. She notes good improvement of LE edema. She wonders if her home providers will be able to manage HF. Exam Narrative: Exam Narrative: wt on admission 168.5kg, wt today 145 kg General: No acute distress. Awake, alert, oriented x3. No pallor. No jaundice. Oropharynx: Clear. Mucous membranes moist. Cardiovascular: Regular rate and rhythm. No murmurs, gallops, or rubs. Respiratory: Clear to auscultation bilaterally. No wheezes or crackles. Abdomen: Bowel sounds present. Soft, nondistended, nontender. Extremities: 2+ bilateral pitting edema of lower extremities, edema wraps in place. Const: Vital Signs, click to edit/add: Vital Signs - 24 hr 08/26/24 19:00 08/26/24 22:39 08/26/24 22:39 Temperature 97.8 F Pulse Rate Pulse Rate [Right Pulse Oximeter] 98 Respiratory Rate 22 20 Blood Pressure [r forearm] 116/75 Pulse Oximetry 88 92 92 Oxygen Delivery Me thod Nasal Cannula Nasal Cannula Oxygen Flow Rate 2 2 08/26/24 22:39 08/26/24 23:00 08/27/24 01:51 Temperature 98.1 F Pulse Rate 83 Pulse Rate [Right Pulse Oximeter] 90 80 Respiratory Rate 20 Blood Pressure [r forearm] 130/85 114/65 Pulse Oximetry 92 91 Oxygen Delivery Me thod Nasal Cannula Nasal Cannula Oxygen Flow Rate 2 2 08/27/24 07:00 08/27/24 07:00 08/27/24 07:00 Temperature Pulse Rate Pulse Rate [Right Pulse Oximeter] 78 Respiratory Rate 20 20 Blood Pressure [r forearm] Pulse Oximetry 93 93 Oxygen Delivery Me thod Nasal Cannula Oxygen Flow Rate 2 08/27/24 07:31 08/27/24 07:40 Temperature 98 F Pulse Rate 81 Pulse Rate [Right Pulse Oximeter] 78 Respiratory Rate 20 Blood Pressure [r forearm] 130/67 Pulse Oximetry 93 Oxygen Delivery Me thod Nasal Cannula Oxygen Flow Rate 2 Labs Labs: Laboratory Results - last 24 hr 08/27/24 08/27/24 03:04 05:57 WBC 9.38 RBC 4.96 Hgb 15.5 Hct 48.4 MCV 98 MCH 31 MCHC 32 RDW Coeff of Aby 15.3 Plt Count 202 Neut % (Auto) 77.3 H Lymph % (Auto) 13.0 L [place] % (Auto) 8.8 Eos % (Auto) 0.6 Baso % (Auto) 0.1 Neut # (Auto) 7.30 H Lymph # (Auto) 1.20 [place] # (Auto) 0.80 Eos # (Auto) 0.06 Baso # (Auto) 0.01 Abs Immat Gran (auto) 0.02 Imm/Tot Granulo (auto) 0.2 INR 2.88 H Sodium 138 Potassium 3.7 Chloride 90 L Carbon Dioxide 37 H Anion Gap 11 BUN 42 H Creatinine 1.4 Estimated Creat Clear 32.20 Estimated GFR 40 Glucose 196 H Calcium 8.2 L Troponin I < 0.01 L < 0.01 L
[2024-08-27] MEDS: NICOTINE 21 MG PATCH 1 PATCH TRANSDERMA (17:30)
[2024-08-27] MEDS: WARFARIN 2.5 MG TABLET PO (17:30)
--- NOTE | 2024-08-27 19:12 | PC.NURSE ---
-PATIENT UP WITH A1, WALKER AND GAIT BELT BUT RESISTIVE TO ACTIVITY. PATIENT DID GET UP INTO RECLINER WITH ENCOURAGEMENT. DENIES N/V AND TOLERATING REGULAR DIET. LARGE BM TODAY. PATIENT'S O2 SATS 2L PER NC AND DESATS TO 82%2L PER NC WITH ACTIVITY. ENCOURAGED PATIENT TO USE AEROBIKA.
[2024-08-27] MEDS: ATORVASTATIN CALCIUM 40 MG TABLET 80 MG PO (21:01)
[2024-08-27] MEDS: INSULIN GLARGINE,HUM.REC.ANLOG 100 UNIT/ML INSULN.PEN 25 UNIT SUBCUT (21:06)
[2024-08-27] MEDS: NYSTATIN POWDER 1 APPLIC TOPICAL (21:19)
[2024-08-28] MEDS: ACETAMINOPHEN 500 MG TABLET 1000 MG PO ×2 (00:15→18:52)
[2024-08-28] MEDS: MELATONIN 3 MG TABLET PO (00:15)
[2024-08-28 03:00] VITALS: BP 101/61; PULSE 77; RESP 18; TEMP 36.8; O2SAT 91
[2024-08-28 06:18] LABS: Basophils Absolute Auto 0.01 K/uL (0.00-0.30); Basophils Percent Auto 0.1 % (0.0-3.0); Eosinophils Absolute Auto 0.18 K/uL (0.00-0.50); Eosinophils Percent Auto 2.1 % (0.0-7.0); Hematocrit 48.9 % (33.0-51.0); Hemoglobin* 15.6 gm/dL (12.0-16.0); Immature Granulocytes Abs Auto 0.02 K/uL (0.00-0.30); Immature Granulocytes Pct Auto 0.2 %; Mean Corpuscular HGB Conc 32 gm/dL (32-36); Mean Corpuscular Hemoglobin 31 pg (26-34); Mean Corpuscular Volume 97 fL (80-100); Neutrophils Percent Auto 76.6 % (42.0-72.0); Platelet Count* 188 K/uL (140-440); Red Blood Count 5.03 m/uL (4.00-5.20); White Blood Count* 8.64 K/uL (4.50-11.00)
[2024-08-28 06:22] LABS: Slide Review Reflex No
[2024-08-28 06:32] LABS: Chloride* 88 mmol/L (96-114); Potassium* 3.8 mmol/L (3.6-5.1); Sodium* 136 mmol/L (135-149)
[2024-08-28 06:35] LABS: Blood Urea Nitrogen* 47 mg/dL (7-30); Creatinine* 1.3 mg/dL (0.5-1.5); Est. Creatinine Clearance* 34.22; Estimated Glomerular Filt Rate 43 ml/min; Glucose* 152 mg/dL (60-115)
[2024-08-28 06:36] LABS: Calcium* 7.9 mg/dL (8.4-10.6)
[2024-08-28 06:39] LABS: INR 2.56 (0.91-1.10); Prothrombin Time 28.7 Seconds
[2024-08-28 06:42] LABS: Anion Gap 11 mEq/L (7-15); Carbon Dioxide* 37 mmol/L (20-32)
[2024-08-28 07:30] VITALS: BP 112/68; PULSE 83; PULSE 89; RESP 20; TEMP 36.4; O2SAT 85; O2SAT 90; O2SAT 91
--- NOTE | 2024-08-28 07:42 | PC.NURSE ---
Shift note ([id number]): Patient pleasant, alert and oriented. PRN Tylenol given for general discomfort. PRN Melatonin and warm blankets applied to help sleep. Lotion applied to dry lower extremities. Shun wraps applied. Catheter patent and draining suzanna colored urine. ?
[2024-08-28] MEDS: dilTIAZem 240 MG CAP (CD) PO (08:53)
[2024-08-28] MEDS: FUROSEMIDE 10 MG/ML inj 60 MG IVP ×2 (08:53→20:27)
[2024-08-28] MEDS: EMPAGLIFLOZIN 25 MG TABLET PO (08:54)
[2024-08-28] MEDS: GABAPENTIN 300 MG CAPSULE 600 MG PO ×2 (08:54→21:16)
[2024-08-28] MEDS: NYSTATIN POWDER 1 APPLIC TOPICAL (08:54)
[2024-08-28] MEDS: POTASSIUM CHLORIDE 10 MEQ CAPSULE ER 40 MEQ PO ×2 (08:54→17:31)
[2024-08-28] MEDS: INSULIN ASPART 100 UNIT/ML SUBCUT ×4 (08:54→21:17)
[2024-08-28] MEDS: IPRAT-ALBUT 0.5-2.5 MG/3 ML NEB 1 NEB IH ×4 (08:55→21:30)
[2024-08-28] MEDS: METOPROLOL SUCCINATE (XL) 100 MG TAB 200 MG PO (08:57)
[2024-08-28] MEDS: SODIUM CHLORIDE 0.9 % (FLUSH) 10 ML SYRINGE 5 ML IVF ×2 (09:00→21:17)
[2024-08-28 11:45] VITALS: BP 118/79; PULSE 93; RESP 20; TEMP 36.6; O2SAT 91
[2024-08-28] MEDS: CALCIUM CARBONATE 500 MG CHEW PO (12:40)
[2024-08-28 15:45] VITALS: BP 115/80; PULSE 85; PULSE 98; RESP 20; TEMP 36.4; O2SAT 90
--- NOTE | 2024-08-28 16:37 | PM.IMPN1 ---
Progress Note: A&P Assessment and plan (1) CHF exacerbation: Problem details: - unsure of dry weight, appeared to be 30+ pounds over on admission - Furosemide gtt initiated 08/24, will transition to IV Furosemide 08/25 (has received 10mg of Lasix/hr, 240mg/first 24 hours of stay) - continue furosemide 60mg of IV Lasix Q8H - 180mg/24hr - continue home meds for CHF: Metoprolol, Jardiance, diuretics (unclear compliance at home with meds) - weight down 12 kg - patient does not want to discharge home with supplemental oxygen but understands she may need to. Assess for need prior to discharge - 08/27 wt continues to improve, Cr increased slightly today, 1.2 to 1.4. Decrease frequency of lasix. Recheck Cr in am - 08/28 I decrease the frequency of Lasix yesterday, creatinine is stable, slightly improved, at 1.3 today. Continue current diuretic regimen - TTE 08/26 Final Impressions: 1. Normal LV size, borderline wall thickness, normal global systolic function with an estimated EF of 60 - 65%. 2. Right ventricular cavity size is moderately enlarged, global systolic RV function is mildly reduced. 3. Moderately enlarged left atrium. 4. The aortic valve is calcified, moderate stenosis and no regurgitation. The aortic valve peak velocity is 3.2 m/s, the peak gradient is 41 mmHg, and the mean gradient is 18 mmHg. The aortic valve area is 1.29 cm?? with a dimensionless index of 0.31. The stroke volume index is 32.0 ml/m??. 5. The mitral valve is sclerotic, moderate mitral regurgitation. 6. The inferior vena cava is dilated, respiratory size variation less than 50%, consistent with elevated right atrial pressure. 7. Severely increased estimated pulmonary pressures by tricuspid regurgitation velocity and right atrial pressure (55 mmHg plus RAP). 8. Technically limited exam. 9. Tricuspid valve is normal and moderate-severe tricuspid regurgitation. Outpatient follow-up with Cardiology following discharge Status: Acute (2) COPD exacerbation: Problem details: - wheezing on admission, improved 08/25 Status: Resolved (3) Physical debility: Problem details: - multifactorial including morbid obesity, deconditioning, heart failure, lymphedema, COPD - therapies ordered, anticipating discharge home when able with home therapies Status: Acute (4) Chronic acquired lymphedema: Problem details: - OT ordered to help with lymphedema therapies - continue with outpatient lymphedema clinic Status: Acute (5) Chronic anticoagulation: Problem details: - currently on warfarin, Apixiban recommended, patient with discuss with PCP (Dr. Rincon) - 3/2 INR therapeutic Status: Acute (6) Pulmonary hypertension: Problem details: - known history of this, repeat TTE - Transthoracic echocardiogram 02/11/2023: 1. Normal LV size, thickness. EF 55-60%. No regional wall motion abnormalities. 2. RV normal size. 3. Moderate to severe biatrial enlargement. 4. Trace tricuspid regurgitation. Elevated right ventricular systolic pressure consistent with severe pulmonary hypertension. 5. Findings similar to previous echocardiogram on 06/21/2022. - repeat echocardiogram 08/26/24 as above with noted changes. Questionable medication compliance. Will likely need outpatient oxygen. Outpatient follow-up with cardiology recommended Status: Chronic Time Spent With Patient Total time spent: Today I spent 35 minutes seeing the patient, reviewing Expanse and Epic notes/diagnostics, discussing the care plan with our team that includes social work, PT/OT, pharmacy, RT, correction and documenting my impressions and plan in the medical record. Subjective Time Seen by Provider: 11:50 Date Seen: 08/28/24 Interval history: Sydnie tells me that she is tired. She did not sleep well last night. She doesn't know why. We discussed home oxygen and she absolutely refuses to accept that she may need it at home. EMG tells me that she will go home tomorrow without oxygen. She refuses to tell me why she does not want home oxygen. I asked her to think about it and what it would be like to go home feeling short of breath without oxygen and whether not she would just end up coming right back. I said that I would rather prescribe it for her if she needs it and then if she chooses not to use it, that is up to her. Exam Narrative: Exam Narrative: General: No acute distress. Withdrawn. Awake, alert, oriented. No pallor. No jaundice. Oropharynx: Clear. Mucous membranes moist. Cardiovascular: Regular rate and rhythm. No murmurs, gallops, or rubs. Respiratory: Clear to auscultation bilaterally. No wheezes or crackles. Abdomen: Bowel sounds present. Soft, nondistended, nontender. Extremities: 1-2 + bilateral pitting edema of lower extremities. Const: Vital Signs, click to edit/add: Vital Signs - 24 hr 08/27/24 19:00 08/27/24 23:00 08/27/24 23:00 Temperature 97.6 F Pulse Rate Pulse Rate [Right Pulse Oximeter] 94 Respiratory Rate 21 18 Blood Pressure [r forearm] 122/74 Pulse Oximetry 91 90 90 Oxygen Delivery Me thod Nasal Cannula Nasal Cannula Oxygen Flow Rate 2 2 08/27/24 23:00 08/27/24 23:00 08/28/24 03:00 Temperature 97.6 F 98.3 F Pulse Rate 92 Pulse Rate [Right Pulse Oximeter] 90 77 Respiratory Rate 18 18 Blood Pressure [r forearm] 109/70 101/61 Pulse Oximetry 90 91 Oxygen Delivery Me thod Nasal Cannula Nasal Cannula Oxygen Flow Rate 2 2 08/28/24 07:30 08/28/24 07:30 08/28/24 07:30 Temperature Pulse Rate 83 Pulse Rate [Right Pulse Oximeter] 89 Respiratory Rate 20 Blood Pressure [r forearm] Pulse Oximetry 85 L Oxygen Delivery Me thod Oxygen Flow Rate 08/28/24 07:30 08/28/24 07:30 08/28/24 11:45 Temperature 97.5 F L 98 F Pulse Rate Pulse Rate [Right Pulse Oximeter] 89 93 Respiratory Rate 20 20 20 Blood Pressure [r forearm] 112/68 118/79 Pulse Oximetry 91 90 91 Oxygen Delivery Me thod Nasal Cannula Nasal Cannula Nasal Cannula Oxygen Flow Rate 2 2 2 08/28/24 15:45 08/28/24 15:45 08/28/24 15:45 Temperature 97.5 F L Pulse Rate 85 Pulse Rate [Right Pulse Oximeter] 98 Respiratory Rate 20 Blood Pressure [r forearm] 115/80 Pulse Oximetry 90 90 Oxygen Delivery Me thod Nasal Cannula Oxygen Flow Rate 2 08/28/24 15:45 08/28/24 15:45 Temperature Pulse Rate Pulse Rate [Right Pulse Oximeter] 98 Respiratory Rate 20 20 Blood Pressure [r forearm] Pulse Oximetry 90 Oxygen Delivery Me thod Nasal Cannula Oxygen Flow Rate 2 Labs Labs: Laboratory Results - last 24 hr 08/28/24 06:01 WBC 8.64 RBC 5.03 Hgb 15.6 Hct 48.9 MCV 97 MCH 31 MCHC 32 RDW Coeff of Aby 15.0 Plt Count 188 Neut % (Auto) 76.6 H Lymph % (Auto) 13.0 L [place] % (Auto) 8.0 Eos % (Auto) 2.1 Baso % (Auto) 0.1 Neut # (Auto) 6.60 Lymph # (Auto) 1.10 [place] # (Auto) 0.70 Eos # (Auto) 0.18 Baso # (Auto) 0.01 Abs Immat Gran (auto) 0.02 Imm/Tot Granulo (auto) 0.2 INR 2.56 H Sodium 136 Potassium 3.8 Chloride 88 L Carbon Dioxide 37 H Anion Gap 11 BUN 47 H Creatinine 1.3 Estimated Creat Clear 34.22 Estimated GFR 43 Glucose 152 H Calcium 7.9 L
[2024-08-28] MEDS: WARFARIN 2.5 MG TABLET PO (17:31)
[2024-08-28] MEDS: NICOTINE 21 MG PATCH 1 PATCH TRANSDERMA (17:31)
[2024-08-28 19:00] VITALS: BP 103/69; PULSE 84; RESP 20; TEMP 36.7; O2SAT 91
[2024-08-28] MEDS: ATORVASTATIN CALCIUM 40 MG TABLET 80 MG PO (21:16)
[2024-08-28] MEDS: INSULIN GLARGINE,HUM.REC.ANLOG 100 UNIT/ML INSULN.PEN 25 UNIT SUBCUT (21:21)
[2024-08-28 23:00] VITALS: BP 90/60; PULSE 84; PULSE 92; RESP 20; TEMP 36.5; O2SAT 90
[2024-08-29] VITALS (7 sets, daily range): BP systolic 116–125; BP diastolic 77–82; PULSE 84–95; RESP 20–24; TEMP 36.4–36.6; O2SAT 80–91
--- NOTE | 2024-08-29 05:14 | PC.NURSE ---
Shift note ([id number]): Patient pleasant, alert and oriented. Continues to report discomfort in her right abdomen when coughing; otherwise has denied pain. Refused Shun wraps.?Catheter patent.?
[2024-08-29 06:32] LABS: Basophils Absolute Auto 0.01 K/uL (0.00-0.30); Basophils Percent Auto 0.1 % (0.0-3.0); Eosinophils Absolute Auto 0.47 K/uL (0.00-0.50); Eosinophils Percent Auto 5.7 % (0.0-7.0); Hematocrit 51.5 % (33.0-51.0); Hemoglobin* 16.6 gm/dL (12.0-16.0); Immature Granulocytes Abs Auto 0.11 K/uL (0.00-0.30); Immature Granulocytes Pct Auto 1.3 %; Lymphocytes Percent Auto 11.6 % (20-44); Mean Corpuscular HGB Conc 32 gm/dL (32-36); Mean Corpuscular Hemoglobin 31 pg (26-34); Mean Corpuscular Volume 97 fL (80-100); Monocytes Percent Auto 7.2 % (0.0-11.0); Neutrophils Percent Auto 74.1 % (42.0-72.0); Platelet Count* 182 K/uL (140-440); RDW Coefficient of Variation % 15.1 % (11.5-15.5); Red Blood Count 5.33 m/uL (4.00-5.20); White Blood Count* 8.21 K/uL (4.50-11.00)
[2024-08-29 06:44] LABS: Slide Review Reflex No
[2024-08-29 06:50] LABS: Chloride* 89 mmol/L (96-114); Potassium* 3.9 mmol/L (3.6-5.1); Sodium* 136 mmol/L (135-149)
[2024-08-29 06:53] LABS: Anion Gap 8 mEq/L (7-15); Blood Urea Nitrogen* 48 mg/dL (7-30); Calcium* 8.1 mg/dL (8.4-10.6); Carbon Dioxide* 39 mmol/L (20-32); Creatinine* 1.2 mg/dL (0.5-1.5); Est. Creatinine Clearance* 37.07; Estimated Glomerular Filt Rate 48 ml/min; Glucose* 183 mg/dL (60-115); INR 2.51 (0.91-1.10); Prothrombin Time 28.2 Seconds
[2024-08-29] MEDS: POTASSIUM CHLORIDE 10 MEQ CAPSULE ER 40 MEQ PO (07:59)
[2024-08-29] MEDS: INSULIN ASPART 100 UNIT/ML SUBCUT ×2 (08:00→12:05)
[2024-08-29] MEDS: FUROSEMIDE 10 MG/ML inj 60 MG IVP (08:01)
--- NOTE | 2024-08-29 09:30 | PC.SOCIAL ---
Addendum entered by MARELY Mandujano 08/29/24 11:26: Discharge planning: Spoke with [facility] perinatal social worker Kaitlyn [phone], regarding d/c plan. Kaitlyn stated any home health care or Lymphodema orders should be sent to [facility] for arrangement for home care. Called [facility] [phone] who confirmed she is not currently on service and stated orders could be reviewed for decision on acceptance to home care. dye house vat worker to fax home care orders to [facility] for follow up at fax#[phone] Original Note: Discharge planning: Spoke with [facility] Program daycare provider, Genevieve ([phone]), who shared pt has been on service with the home visiting physician and team for three years. Phone number to call to connect with physician or social work from this program is [phone]. Pt's primary care physician is Ivan Haley and her perinatal social worker is Kaitlyn. At discharge, information can be faxed to the team at [phone]. dye house vat worker to follow up as needed.
[2024-08-29] MEDS: dilTIAZem 240 MG CAP (CD) PO (09:44)
[2024-08-29] MEDS: GABAPENTIN 300 MG CAPSULE 600 MG PO (09:45)
[2024-08-29] MEDS: IPRAT-ALBUT 0.5-2.5 MG/3 ML NEB 1 NEB IH (09:45)
[2024-08-29] MEDS: METOPROLOL SUCCINATE (XL) 100 MG TAB 200 MG PO (09:45)
[2024-08-29] MEDS: CALCIUM CARBONATE 500 MG CHEW PO (09:45)
[2024-08-29] MEDS: EMPAGLIFLOZIN 25 MG TABLET PO (09:46)
[2024-08-29] MEDS: SODIUM CHLORIDE 0.9 % (FLUSH) 10 ML SYRINGE 5 ML IVF (09:48)
--- NOTE | 2024-08-29 11:04 | PM.DS1 ---
DS: Providers Provider Time Seen by Provider: 09:24 Date Seen: 08/29/24 Date of admission: 08/24/24 16:33 Primary care physician: Not a Local Provider Admitting Clinician: Joe Diana MD Consults: 08/24/24 16:35 Consult to Occupational Therapy [CONS] Routine Comment: Reason(s) for OT Consult:: Evaluate and Treat Any Restrictions?:: No Restrictions Consult to Physical Therapy [CONS] Routine Comment: Reason(s) for PT Consult:: Evaluate and Treat Any Restrictions?:: No Restrictions Consult to Technical Sales Advisor [CONS] Routine Comment: Reason for Consult:: Discharge Planning Needs Attending Physician on discharge: Vickie Greenwood MD Date of Discharge: 08/29/24 DS: Diagnosis Discharge Diagnosis (1) CHF exacerbation: Status: Acute Problem details: - unsure of dry weight, appeared to be 30+ pounds over on admission - Furosemide gtt initiated 08/24, will transition to IV Furosemide 08/25 (has received 10mg of Lasix/hr, 240mg/first 24 hours of stay) - continue furosemide 60mg of IV Lasix Q8H - 180mg/24hr - continue home meds for CHF: Metoprolol, Jardiance, diuretics (unclear compliance at home with meds) - weight down 12 kg - patient does not want to discharge home with supplemental oxygen but understands she may need to. Assess for need prior to discharge - 08/27 wt continues to improve, Cr increased slightly today, 1.2 to 1.4. Decrease frequency of lasix. Recheck Cr in am - 08/28 I decrease the frequency of Lasix yesterday, creatinine is stable, slightly improved, at 1.3 today. Continue current diuretic regimen - 08/29 Cr stable, breathing and edema improved, I believe we have reached her dry weight: 146 kg today. Transition to oral lasix for homegoing - TTE 08/26 Final Impressions: 1. Normal LV size, borderline wall thickness, normal global systolic function with an estimated EF of 60 - 65%. 2. Right ventricular cavity size is moderately enlarged, global systolic RV function is mildly reduced. 3. Moderately enlarged left atrium. 4. The aortic valve is calcified, moderate stenosis and no regurgitation. The aortic valve peak velocity is 3.2 m/s, the peak gradient is 41 mmHg, and the mean gradient is 18 mmHg. The aortic valve area is 1.29 cm?? with a dimensionless index of 0.31. The stroke volume index is 32.0 ml/m??. 5. The mitral valve is sclerotic, moderate mitral regurgitation. 6. The inferior vena cava is dilated, respiratory size variation less than 50%, consistent with elevated right atrial pressure. 7. Severely increased estimated pulmonary pressures by tricuspid regurgitation velocity and right atrial pressure (55 mmHg plus RAP). 8. Technically limited exam. 9. Tricuspid valve is normal and moderate-severe tricuspid regurgitation. Outpatient follow-up with Cardiology following discharge (2) COPD exacerbation: Status: Resolved Problem details: - wheezing on admission, improved 08/25 (3) Physical debility: Status: Acute Problem details: - multifactorial including morbid obesity, deconditioning, heart failure, lymphedema, COPD - PT and OT assessed - d/c home with services (4) Chronic acquired lymphedema: Status: Acute Problem details: - OT ordered to help with lymphedema therapies - continue with outpatient lymphedema clinic (5) Chronic anticoagulation: Status: Acute Problem details: - currently on warfarin, Apixiban recommended, patient with discuss with PCP (Dr. Rincon) - 08/29 INR therapeutic (6) Pulmonary hypertension: Status: Chronic Problem details: - known history of this, repeat TTE - Transthoracic echocardiogram 02/11/2023: 1. Normal LV size, thickness. EF 55-60%. No regional wall motion abnormalities. 2. RV normal size. 3. Moderate to severe biatrial enlargement. 4. Trace tricuspid regurgitation. Elevated right ventricular systolic pressure consistent with severe pulmonary hypertension. 5. Findings similar to previous echocardiogram on 06/21/2022. - repeat echocardiogram 08/26/24 as above with noted changes. Questionable medication compliance. Needs outpatient oxygen. I spoke with PCP (Jacquie Haley) who spoke with Sydnie over phone. Sydnie agreeable with home oxygen. Outpatient follow-up with cardiology recommended DS: Summary Hospital Course Hospital Course: Per H&P: Sydnie Parkinson is a 73 year old female with heart failure, atrial fibrillation, COPD, sleep apnea, CKD 3, severe lymphedema, morbid obesity, diabetes, pulmonary hypertension admitted through the emergency department with worsening dyspnea. Patient is noted worsening dyspnea over the last couple days. Along with this she has also had chronic severe lymphedema. This is gotten much worse to the point she can no longer wear her compression stockings on her legs because they do not fit. She has a home care nurse who comes for lymphedema care and saw her yesterday. Unclear what that conversation entailed. She is unsure of however weight is compared to her target weight for her heart failure. She reports she is compliant with her medications. She has not had fever, cold, chest pain, vomiting, abdominal pain. She does report cough productive of clear sputum and nausea, anorexia and early satiety recently. She was diuresed initially by a lasix drip, then scheduled bolus IV lasix. She's had good diuresis and improvement of edema and dyspnea. Oxygen needs have decreased, but she does have a need for home O2, which I suspect is due to pulmonary hypertension. Please seek diagnoses above for more details. She is discharged home today in improved condition. I have spoken with her outpatient provider, Jacquie Haley, over the phone today. Time Spent with Patient Time attestation: Total time spent providing and/or coordinating discharge services: Today I spent 60 minutes seeing the patient, reviewing [facility] and EPIC notes/diagnostics/labs, discussing the care plan with our care team that includes social work, PT/OT, pharmacy, RT, fci, discussing with the patient's outpatient provider, Jacquie Haley, documenting my findings and ordering home medications and services. Exam Narrative: Exam Narrative: wt 146 kg General: No acute distress. Withdrawn. Awake, alert, oriented. No pallor. No jaundice. Oropharynx: Clear. Mucous membranes moist. Cardiovascular: Regular rate and rhythm. No murmurs, gallops, or rubs. Respiratory: Clear to auscultation bilaterally. No wheezes or crackles. Abdomen: Bowel sounds present. Soft, nondistended, nontender. Extremities: 1-2 + bilateral pitting edema of lower extremities. Const: Vital Signs, click to edit/add: Vital Signs - 24 hr 08/28/24 11:45 08/28/24 15:45 08/28/24 15:45 Temperature 98 F 97.5 F L Pulse Rate 85 Pulse Rate [Right Pulse Oximeter] 93 98 Respiratory Rate 20 20 Blood Pressure [r forearm] 118/79 115/80 Pulse Oximetry 91 90 Oxygen Delivery Me thod Nasal Cannula Nasal Cannula Oxygen Flow Rate 2 2 08/28/24 15:45 08/28/24 15:45 08/28/24 15:45 Temperature Pulse Rate Pulse Rate [Right Pulse Oximeter] 98 Respiratory Rate 20 20 Blood Pressure [r forearm] Pulse Oximetry 90 90 Oxygen Delivery Me thod Nasal Cannula Oxygen Flow Rate 2 08/28/24 19:00 08/28/24 23:00 08/28/24 23:00 Temperature 98.0 F 97.7 F Pulse Rate Pulse Rate [Right Pulse Oximeter] 84 92 Respiratory Rate 20 20 20 Blood Pressure [r forearm] 103/69 90/60 Pulse Oximetry 91 90 90 Oxygen Delivery Me thod Nasal Cannula Nasal Cannula Nasal Cannula Oxygen Flow Rate 2 2 2 08/28/24 23:00 08/28/24 23:00 08/29/24 02:33 Temperature Pulse Rate 84 Pulse Rate [Right Pulse Oximeter] 84 Respiratory Rate 20 Blood Pressure [r forearm] 118/80 Pulse Oximetry 90 91 Oxygen Delivery Me thod Nasal Cannula Oxygen Flow Rate 08/29/24 08:09 08/29/24 08:09 08/29/24 08:09 Temperature 97.9 F Pulse Rate Pulse Rate [Right Pulse Oximeter] 90 90 Respiratory Rate 24 24 Blood Pressure [r forearm] 116/77 Pulse Oximetry 83 L 88 Oxygen Delivery Me thod Room Air Oxygen Flow Rate 08/29/24 08:20 08/29/24 08:21 08/29/24 10:18 Temperature Pulse Rate 89 Pulse Rate [Right Pulse Oximeter] Respiratory Rate 24 Blood Pressure [r forearm] Pulse Oximetry 88 88 Oxygen Delivery Me thod Nasal Cannula Nasal Cannula Oxygen Flow Rate 1.5 1.5 DS: Data Data Completed and Pending Completed studies during hospitalization: 08/24/2024 EKG: Atrial fibrillation, 69 beats per minute, low voltage QRS, septal and lateral infarct, age undetermined. 08/26/2024 echocardiogram: Normal LV size, borderline wall thickness, normal global systolic function with an estimated EF of 60-65%. Right ventricular cavity size is moderately enlarged, global systolic RV function is mildly reduced. Moderately enlarged left atrium. Aortic valve is calcified, moderate stenosis and no regurgitation. Aortic valve peak velocity is 3.2m/s, the peak gradient is 41 mm Hg, in the mean gradient is 18 mm Hg. The aortic valve area is 1.29 cm2 with a dimensionless index of 0.31. Stroke volume index is 32.0 ml/m2. The mitral valve is sclerotic, moderate mitral regurgitation. The inferior vena cava is dilated, respiratory size variation is less than 50%, consistent with elevated right atrial pressure. Severely increased estimated pulmonary pressures by tricuspid regurgitation velocity and right atrial pressure (55mmHg plus RAP). Technically limited exam. Tricuspid valve is normal and moderate severe tricuspid regurgitation. Ordering Physician: Vj Silva D.O. Date of Service: 08/24/24 Procedure(s): XR chest 2V Accession Number(s): [id number] cc: Vj Silva D.O.; Provider,Not a Local~ For Patients: As a result of the Cures Act, medical imaging exams and procedure reports are released immediately into your electronic medical record. You may view this report before your referring provider. If you have questions, please contact your health care provider. Indication: SOB Technique: PA and lateral views of the chest. Comparison: 04/09/2023. Findings: Low lung volumes. Left chest pacemaker with right ventricular lead. Moderately enlarged cardiomediastinal silhouette. Moderate interstitial prominence and patchy airspace opacities. Small to moderate left pleural effusion. No visualized pneumothorax. Moderate degenerative changes of the visualized spine. Impression: Moderate interstitial prominence and patchy airspace opacities with small to moderate left pleural effusion. Findings are favored to represent moderate pulmonary edema, though infection can not be excluded. Dictated by Aj Salamanca MD @ 08/24/2024 3:08:04 PM (Electronically Signed) Labs on day of discharge: Labs from last 24 hours 08/29/24 05:58 WBC 8.21 RBC 5.33 H Hgb 16.6 H Hct 51.5 H MCV 97 MCH 31 MCHC 32 RDW Coeff of Aby 15.1 Plt Count 182 Neut % (Auto) 74.1 H Lymph % (Auto) 11.6 L Burnett % (Auto) 7.2 Eos % (Auto) 5.7 Baso % (Auto) 0.1 Neut # (Auto) 6.10 Lymph # (Auto) 1.00 Burnett # (Auto) 0.60 Eos # (Auto) 0.47 Baso # (Auto) 0.01 Abs Immat Gran (auto) 0.11 Imm/Tot Granulo (auto) 1.3 INR 2.51 H Sodium 136 Potassium 3.9 Chloride 89 L Carbon Dioxide 39 H Anion Gap 8 BUN 48 H Creatinine 1.2 Estimated Creat Clear 37.07 Estimated GFR 48 Glucose 183 H Calcium 8.1 L Discharge Plan Discharge Disposition: Home, Self-Care Date of Admission: 08/24/24 16:33 Attending Provider on Discharge: Vickie Greenwood Primary Care Provider: Provider,Not a Local Condition: Improved Anticipated Discharge Date/Time: 08/29/24 11:33 Discharge Medications: New furosemide 40 mg tablet 60 mg PO BID Qty: 90 0RF nicotine 21 mg/24 hr Patch 24 Hour 1 patch transdermal Q24H Qty: 7 0RF Continued atorvastatin 80 mg tablet 80 mg PO HS diltiazem HCl 240 mg capsule,extended release 24hr 240 mg PO DAILY metoprolol succinate 200 mg tablet extended release 24 hr 200 mg PO DAILY warfarin 2.5 mg tablet 2.5 - 3.75 mg PO QPM Rx Instructions: 3.75mg on , 2.5mg all other days bumetanide 1 mg tablet 3 mg PO DAILY albuterol sulfate 90 mcg/actuation HFA aerosol inhaler 2 puff INHALATION Q4H PRN (Reason: dyspnea) insulin glargine [Lantus Solostar U-100 Insulin] 100 unit/mL (3 mL) insulin pen 25 unit subcut HS acetaminophen [Tylenol Extra Strength] 500 mg tablet 1,000 mg PO Q6H PRN cholecalciferol (vitamin D3) 25 mcg (1,000 unit) capsule 25 mcg PO DAILY potassium chloride 20 mEq tablet extended release 40 meq PO BID Ozempic 0.25 mg or 0.5 mg (2 mg/3 mL) pen injector 0.25 mg SUBCUT Q7D metolazone 2.5 mg tablet 2.5 mg PO DAILY PRN fluconazole 150 mg tablet 150 mg PO DAILY PRN nystatin 100,000 unit/gram cream 1 applic topical BID PRN nystatin 100,000 unit/gram powder 1 applic topical QID PRN (DME) pen needle, diabetic [BD Ultra-Fine Orig Pen Needle] 29 gauge x 1/2 needle MISCELLANEOUS Patient Comments: [NO ORIGINAL SIG] Jardiance 25 mg tablet 25 mg PO DAILY gabapentin 300 mg capsule 600 mg PO BID Discharge Orders: Discharge Order (Routine); Ordered 08/29/24 Ordered By: Vickie Greenwood Additional Instructions: You are prescribed oxygen for use at home. Do not smoke while using oxygen. Resume health care through [facility] Outpatient follow up with Cardiology Home health for PT, OT, lymphedema wraps Activity Level: Use Walker Discharge Diet: Heart Healthy (2 gm sodium, low fat) and 2000 ml Fluid Restriction Follow Up Appointments: Provider,Not a Local [Primary Care Provider] - Forms: [employer] Info Instructions
[2024-08-29] MEDS: NICOTINE 21 MG PATCH 1 PATCH TRANSDERMA (12:14)
--- NOTE | 2024-08-29 13:49 | PC.NURSE ---
Discharge: Patient pleasant and cooperative. Patient vitally stable, lungs clear/diminished, BS WNL IV removed, catheter intact. Patient was on oxygen nasal cannula lowest at 1 L with sats 88-91%. Patient expressed she will not be using oxygen at home. Patient's catheter was removed, tip intact. Nicotine patch on right shoulder was removed and disposed in black bin. Patient denies pain. Patient's blood sugars were 193 and 212. Patient tolerating regular diet. Patient signed belongings sheet and discharge form with no further questions regarding education. Patient left the floor by wheelchair to home at 1315.
== END 2024-08-29 13:15 | disposition home or self-care (01) | DRG 291 ==
LOC: ED 15:33 → MEDSURG 16:04
PROVIDERS: Family Medicine; Internal Medicine; Admitting Provider Family Medicine; Emergency Provider Student in an Organized Health Care Education/Training Program; Visit Provider Internal Medicine
DX: I13.0 Hypertensive heart and chronic kidney disease with heart failure and stage 1 through stage 4 chronic kidney disease, or unspecified chronic kidney disease (principal); I50.33 Acute on chronic diastolic (congestive) heart failure; J96.01 Acute respiratory failure with hypoxia; J44.1 Chronic obstructive pulmonary disease with (acute) exacerbation; Z68.43 Body mass index [BMI] 50.0-59.9, adult; N18.30 Chronic kidney disease, stage 3 unspecified; E11.22 Type 2 diabetes mellitus with diabetic chronic kidney disease; E11.42 Type 2 diabetes mellitus with diabetic polyneuropathy; Z79.85 Long-term (current) use of injectable non-insulin antidiabetic drugs; Z79.01 Long term (current) use of anticoagulants; I89.0 Lymphedema, not elsewhere classified; E66.01 Morbid (severe) obesity due to excess calories; I27.20 Pulmonary hypertension, unspecified; I08.3 Combined rheumatic disorders of mitral, aortic and tricuspid valves; G47.33 Obstructive sleep apnea (adult) (pediatric); I48.0 Paroxysmal atrial fibrillation; Z79.4 Long term (current) use of insulin; F17.210 Nicotine dependence, cigarettes, uncomplicated; F32.9 Major depressive disorder, single episode, unspecified; R53.81 Other malaise
CPT/HCPCS: 36415; 51701; 71046; 80048; 82803; 82962; 83735; 83880; 84484; 85025; 85610; 87631; 93005; 93306; 94640; 94761; 97116; 97161; 97165; 97530; 97535; 99284; 99285; A9270; J1815; J1940; J2919; J3475; S4990

== ENCOUNTER 2024-12-04 22:28 | Inpatient (IN) | payer MEDICARE, SELFPAY ==
--- OUTSIDE RECORDS SUMMARY | 2024-11-01 05:53 | XMS_ITS | Encounter Summary ---
Author Organization [place] Address [address] [place] [address] Care Team Providers Care Phosphoric Acid Supervisor Name Role Phone Lexie Bose DOCK OPERATOR DIGESTER COOK Unavailable [phone] Viviane Pacheco DOCK OPERATOR DIGESTER COOK Unavailable [phone] Genevieve Puentes NP Unavailable [phone] Tin Mckenzie MD Unavailable [phone] Amarilis Rincon MD Primary Care Provider + [phone] Mauricio New MD Unavailable [phone] Sheila Lara MD Unavailable Reason for Visit * Auth/Cert Specialty Diagnoses / Procedures Referred By Otoniel t Referred To Contact Cardiology Diagnoses Cardiac pacemaker in situ Atrial fibrillation with RVR (H) Congestive heart failure, unspecified HF chronicity, unspecified heart failure type (H) PH Procedures ZZHC RIGHT HEART CATH O2 SATURATION & CARDIAC OUTPUT HI RIGHT HEART CATH O2 SATURATION & CARDIAC OUTPUT Right Heart Catheterization [facility] [address] [address] Phone: tel: Referral ID Status Reason Start Date Expiration Date Visits Re quested Visits Authorized [id number] 1 1 Encounter Details Date Type Department Care Team (Latest Contact Info) Description 11/01/2024 5:53 AM CDT - 11/01/2024 10:35 AM CDT Hospital Encounter [facility] Care Suit[facility] [address] [address] Sheila Lara MD [address] [facility] [address] [place] [address] Acute decompensated heart failure (H) (Primary Dx); [...] stops, sit still for [address] [facility] Clinic as soon as you can Call 911 right away if you have heavy bleeding or bleeding that does not stop. Medicines: If you are taking an antiplatelet medication such as Plavix, Brilinta or Effient, do not stop taking it until you talk to your loft worker. If you are on Metformin (Glucophage), [...] them. Follow Up Appointments: Follow up with [facility] Heart Nurse Practitioner at [facility] Heart Clinic of patient preference in 7-10 [...] or unusual itching. Any questions or concerns. [facility] at [place]: [phone] [facility] (7 days a week) Or you may [...] 200 mg by mouth daily nystatin (MYCOSTATIN) 695420 UNIT/GM external cream Apply topically 2 times [...] reviewed: Yes Additional education/resources provided: None Patient/patient warehouse representative verbalizes understanding: Yes Patient discharging on [...] regurgitation from above. Patient was recently at [facility]. Underwent nearly 40 pounds of diuresis. Weight [...] right internal jugular vein. Through that a [place]-Jeana catheter was inserted into the right heart and serial measurements were obtained in the pulmonary capillary wedge, pulmonary artery, right ventricle and right atrial positions. Pulmonary arterial saturations were obtained for [place] cardiac index calculation. [place] was pulled out and manual compression was done for hemostasis at the access site. No immediate complications. The attending senior search marketing analyst was present and supervised all critical aspects the procedure. Recommendations Follow-up in heart failure clinic. us Sheila Lara MD CV CARDIAC CATH ORDERABLES Final Result * (ABNORMAL) iStat Gases (lactate) venous, POCT (11/01/2024 8:56 AM CDT) [facility] Lactic Acid POCT 0.9 0.7 [...] CDT 11/01/2024 8:59 AM CDT us Sheila Laar MD LAB - BEAKER POCT Final Result LABORATORY POC [facility] Acute Care Lab [address] 1st floor, [address] [place] [address], [facility] * EKG 12-lead, tracing only (11/01/2024 7:11 AM CDT) Systolic Blood Pressure mmHg RADIOLOGY RESULTS Diastolic Blood Pressure mmHg RADIOLOGY RESULTS Ventricular Rate 91 BPM RAD IOLOGY RESULTS Atrial Rate 227 BPM RADIOLOG Y RESULTS HI Interval ms RADIOLOG Y RESULTS QRS Duration 78 ms RADIOLO GY RESULTS QT 390 ms RADIOLOGY RESULTS QTc 479 ms RADIOLOGY RESULTS P [place] degrees RADIOLOGY RESULTS R AXIS 220 degrees RADIOLOGY RESULTS T [place] 50 degrees RADIOLOGY RESULTS Interpretation ECG Atrial [...] Edited Result - Final Performing Organization Address City/[facility]/ZIP Co de Phone Number RADIOLOGY RESULTS * Partial thromboplastin time (11/01/2024 7:01 AM CDT) aPTT 28 22 - 38 Seconds 11/01/2024 8:12 AM CDT LABORATORY Blood BLOOD SPECIMEN / Unknown Venipuncture / Unknown 11/01/2024 7:01 AM CDT 11/01/2024 7:13 AM CDT Sheila Lara MD LAB - BLOOD ORDERABLES Final Res ult LABORATORY [facility] Care Lab [address] 1[address] floor, [address] [place] [address], [place] [phone] * INR (11/01/2024 7:01 AM CDT) Pathologist [facility] INR 1.15 0.85 - 1.15 11/01/2024 7:42 AM CDT LABORATORY PT 14.5 11.8 - 14.8 Seconds 11/01/2024 7:42 AM CDT LABORATORY Blood BLOOD SPECIMEN / Unknown Venipuncture / Unknown 11/01/2024 7:01 AM CDT 11/01/2024 7:13 AM CDT us Sheila Lara MD LAB - BLOOD ORDERABLES Final Res ult LABORATORY [facility] Acute Care Lab [address] 1[address] floor, [address] [place] [address], [facility] [phone] * (ABNORMAL) CBC with platelets (11/01/2024 7:01 AM CDT) [facility] WBC Count 8.7 4.0 - [...] [address] floor, [address] [place] [address], [facility] [phone] * (ABNORMAL) Basic metabolic panel (11/01/2024 7:01 AM CDT) Sodium 139 135 - 145 mmol/L 11/01/2024 7:44 AM [facility] Potassium 3.9 3.4 - 5.3 mmol/L 11/01/2024 7:44 AM [facility] Chloride 95(L) 98 - 107 mmol/L 11/01/2024 7:44 AM [facility] Carbon Dioxide (CO2) 30(H) 22 - 29 mmol/L 11/01/2024 7:44 AM [facility] Anion Gap 14 7 - 15 mmol/L 11/01/2024 7:44 AM [facility] Urea Nitrogen 33.6(H) 8.0 - 23.0 mg/dL 11/01/2024 7:44 AM T LABORATORY Creatinine 1.44(H) 0.51 - 0.95 mg/dL 11/01/2024 7:44 AM T LABORATORY GFR Estimate 38(L) >60 mL/min/1.7 3m2 11/01/2024 7:44 AM [facility] Comment:eGFR calculated usin 2020 CKD-EPI equation. Calcium 8.7(L) 8.8 - 10.4 mg/dL 11/01/2024 7:44 AM T LABORATORY Glucose 239(H) 70 - 99 mg/dL 11/01/2024 7:44 AM [facility] Blood BLOOD SPECIMEN / Unknown Venipuncture / Unknown 11/01/2024 7:01 AM CDT 11/01/2024 7:13 AM CDT us Sheila Lara MD LAB - BLOOD ORDERABLES Final Res ult [facility] Acute Care Lab [address] 1[address] floor, [address] [place] [address], [place] [phone] documented in this encounter Visit Diagnoses Diagnosis [...] IV for 2 hours prior to cardiac laboratory technologist procedure, then titrate per procedure MD to [...] IV for 2 hours prior to cardiac laboratory technologist procedure, then titrate per procedure MD to [...] 0900 documented in this encounter Care Teams Phosphoric Acid Supervisor Relationship Specialty Start Date End Date Amarilis Rincon MD [address] [place] [address] PCP - General Family Practice 02/11/24 Lexie Bose APRN DIGESTER COOK [address] [place] [id number] Nurse Practitioner Cardiovascular Disease 07/01/22 Viviane Pacheco APRN DIGESTER COOK [address] [id number] Nurse Practitioner Cardiovascular Disease 07/16/22 Genevieve Puentes NP [address] [id number] Nurse Practitioner Cardiology 07/25/22 Tin Mckenzie MD [address] [place] [id number] Cardiovascular Disease 11/04/22 Mauricio New MD [address] [place] [address] Assigned Surgical Provider 10/19/24 Sheila Lara MD [address] [place] [address] Assigned Heart and Vascular Provider 10/19/24 documented as of this encounter
--- OUTSIDE RECORDS SUMMARY | 2024-11-01 08:30 | XMS_ITS | Encounter Summary ---
Author Organization [facility] Address [address] [place] [address] Care Team Providers Care Airbrush Artist Photography Name Role Phone Lexie Bose IT SOLUTIONS ARCHITECT CLEANING PROFESSIONAL Unavailable [phone] Viviane Pacheco IT SOLUTIONS ARCHITECT CLEANING PROFESSIONAL Unavailable [phone] Genevieve Puentes NP Unavailable [phone] Tin Mckenzie MD Unavailable [phone] Amarilis Rincon MD Primary Care Provider + [phone] Mauricio New MD Unavailable [phone] Sheila Lara MD Unavailable Reason for Visit * Auth/Cert Specialty Diagnoses / Procedures Referred By Otoniel t Referred To Contact Cardiology Diagnoses Cardiac pacemaker in situ Atrial fibrillation with RVR (H) Congestive heart failure, unspecified HF chronicity, unspecified heart failure type (H) PH Procedures [facility] RIGHT HEART CATH O2 SATURATION & CARDIAC OUTPUT VA RIGHT HEART CATH O2 SATURATION & CARDIAC OUTPUT Right Heart Catheterization [facility] [address] [phone] Phone: tel: Referral ID Status Reason Start Date Expiration Date Visits Re quested Visits Authorized [id number] 1 1 Encounter Details Date Type Department Care Team (Late st Contact Info) Description 11/01/2024 8:30 AM CDT - 11/01/2024 9:30 AM CDT Surgery [facility] Heart [facility] [address] [phone] Sheila Lara MD [address] [place] [address] Right Heart Catheterization Surgery Details Date/Time Status Location OR Service Patient Class Case Class Case Type Trauma Case? 11/01/2024 8:30 AM Posted HEART CARDIAC MANAGER BUSINESS Rags Laborer 3 Cardiology Outpatient Panel 1 Procedure LRB Anes Op Region Wound Class Comments Right Heart Catheterization N/A Moderate Sedation Heart per Dr Lara with Dr Lara to do prep reviewed and given to pt and she denies any further questions; rac 10/03/24 Surgeon Surgeon Role Service Panel Sheila Lara MD Primary Cardiology 1 documented in this encounter Social History Tobacco Use Types Packs/Day Years [...] Sign Reading Time Taken Comments Blood Pressure 96/56 11/01/2024 9:30 AM CDT Pulse 78 11/01/2024 9:30 AM CDT Temperature 36.6 C (97.9 F) 11/01/2024 6:32 AM CDT Respiratory Rate 16 11/01/2024 9:30 AM CDT Oxygen Saturation 92% 11/01/2024 9:30 AM CDT Inhaled Oxygen Concentration - - Weight 152.9 kg (337 lb) 11/01/2024 6:32 AM CDT Height 167.6 cm (5' 6) 11/01/2024 6:32 AM CDT Body Mass Index 54.39 11/01/2024 6:32 AM CDT documented in this encounter Discharge Instructions * Discharge Instructions* Naheed Sosa, ARIELLA - 11/01/2024 7:23 AM CDT Right Heart [...] stops, sit still for 2 hours. Call [facility] Clinic as soon as you can Call 911 right away if you have heavy bleeding or bleeding that does not stop. Medicines: If you are taking an antiplatelet medication such as Plavix, Brilinta or Effient, do not stop taking it until you talk to your programming development project manager. If you are on Metformin (Glucophage), do [...] them. Follow Up Appointments: Follow up with [facility] Heart Nurse Practitioner at [facility] Heart Clinic of patient preference in 7-10 [...] or unusual itching. Any questions or concerns. [facility] at [place]: [phone] [facility] (7 days a week) Or you may [...] 200 mg by mouth daily nystatin (MYCOSTATIN) 160439 UNIT/GM external cream Apply topically 2 times [...] reviewed: Yes Additional education/resources provided: None Patient/patient professional healthcare representative verbalizes understanding: Yes Patient discharging on [...] as planned Discharge Planning Discharge name/phone number: sister Hill- in waiting room Overnight post sedation caregiver: [...] regurgitation from above. Patient was recently at [facility]. Underwent nearly 40 pounds of [...] right internal jugular vein. Through that a Copeland-Jeana catheter was inserted into the right heart and serial measurements were obtained in the pulmonary capillary wedge, pulmonary artery, right ventricle and right atrial positions. Pulmonary arterial saturations were obtained for Napoleon cardiac index calculation. Copeland was pulled out and manual compression was done for hemostasis at the access site. No immediate complications. The attending chair installer was present and supervised all critical aspects the procedure. Recommendations Follow-up in heart failure clinic. Sheila Lara MD CV CARDIAC CATH ORDERABLES Final Result * (ABNORMAL) iStat Gases (lactate) venous, POCT (11/01/2024 8:56 AM CDT) [facility] Lactic Acid POCT 0.9 0.7 - 2.0 [...] 8:56 AM CDT 11/01/2024 8:59 AM CDT Sheila Lara MD LAB - BEAKER POCT Final Result LABORATORY POC [facility] Acute Care Lab [address] 1[address] floor, [address] [place] [address] * EKG 12-lead, tracing only (11/01/2024 7:11 AM CDT) Systolic Blood Pressure mmHg RADIOLOGY RESULTS Diastolic Blood Pressure mmHg RADIOLOGY RESULTS Ventricular Rate 91 BPM RAD IOLOGY RESULTS Atrial Rate 227 BPM RADIOLOG Y RESULTS VA Interval ms RADIOLOG Y RESULTS QRS Duration 78 ms RADIOLO GY RESULTS QT 390 ms RADIOLOGY RESULTS QTc 479 ms RADIOLOGY RESULTS P [place] degrees RADIOLOGY RESULTS R AXIS 220 degrees RADIOLOGY RESULTS T [place] 50 degrees RADIOLOGY RESULTS Interpretation ECG Atrial [...] MD ECG ORDERABLES Edited Result - Final RADIOLOGY RESULTS * Partial thromboplastin time (11/01/2024 7:01 AM CDT) aPTT 28 22 - 38 Seconds 11/01/2024 8:12 AM CDT LABORATORY Blood BLOOD SPECIMEN / Unknown Venipuncture / Unknown 11/01/2024 7:01 AM CDT 11/01/2024 7:13 AM CDT Sheila Lara MD LAB - BLOOD ORDERABLES Final Res ult LABORATORY [facility] [address] 1[address] floor, [address] [place] [address], [facility] [phone] * INR (11/01/2024 7:01 AM CDT) Pathologist [facility] INR 1.15 0.85 - 1.15 11/01/2024 7:42 AM CDT LABORATORY PT 14.5 11.8 - 14.8 Seconds 11/01/2024 7:42 AM CDT LABORATORY Blood BLOOD SPECIMEN / Unknown Venipuncture / Unknown 11/01/2024 7:01 AM CDT 11/01/2024 7:13 AM CDT Sheila Lara MD LAB - BLOOD ORDERABLES Final Res ult LABORATORY [facility] [address] floor, [address] [place] [address], [facility] [phone] * (ABNORMAL) CBC with platelets (11/01/2024 7:01 AM CDT) [facility] WBC Count 8.7 4.0 - 11.0 10e3/uL [...] - 36.5 g/dL 11/01/2024 7:18 AM CDT SH LABORATORY RDW 15.8(H) 10.0 - 15.0 % 11/01/2024 7:18 AM [facility] Platelet Count 209 150 - 450 10e3/uL 11/01/2024 7:18 AM [facility] Blood BLOOD SPECIMEN / Unknown Venipuncture / Unknown 11/01/2024 7:01 AM CDT 11/01/2024 7:13 AM T us Sheila Lara MD LAB - BLOOD ORDERABLES Final Res ult LABORATORY [facility] Acute Care Lab [address] floor, [address] [place] [address], [facility] [phone] * (ABNORMAL) Basic metabolic panel (11/01/2024 7:01 AM CD) Sodium 139 135 - 145 mmol/L 11/01/2024 [...] 8.0 - 23.0 mg/dL 11/01/2024 7:44 AM [facility] Creatinine 1.44(H) 0.51 - 0.95 mg/dL 11/01/2024 7:44 AM [facility] GFR Estimate 38(L) >60 mL/min/1.7 3m2 11/01/2024 7:44 AM [facility] Comment:eGFR calculated usin g 2020 CKD-EPI equation. Calcium 8.7(L) 8.8 - 10.4 mg/dL 11/01/2024 7:44 AM [facility] Glucose 239(H) 70 - 99 mg/dL 11/01/2024 7:44 AM CDT LABORATORY Blood BLOOD SPECIMEN / Unknown Venipuncture / Unknown 11/01/2024 7:01 AM CDT 11/01/2024 7:13 AM CDT us Sheila Lara MD LAB - BLOOD ORDERABLES Final Res ult LABORATORY [facility] Acute Care Lab [address] floor, [address] [place] [address], [facility] [phone] documented in this encounter Visit Diagnoses Diagnosis [...] exceed 4 grams/day.Indications:Acute decompensated heart failure (H) lidocaine 1 % ONCE PRN, Starting on Thu11/01/24 at 0847, Cardiac Intra-procedure $Given 11/01/2024 8:47 AM CDT 10 mLs ondansetron (ZOFRAN ODT) ODT tab 4 mg [...] IV for 2 hours prior to cardiac mobile lab technician procedure, then titrate per procedure MD to [...] IV for 2 hours prior to cardiac mobile lab technician procedure, then titrate per procedure MD to [...] at 1239 0930 (Canceled Entry - Provider: Henrik Generic Provider - Comment: Automatically canceled at [...] 0900 documented in this encounter Care Teams Airbrush Artist Photography Relationship Specialty Start Date End Date Amarilis Rincon MD [address] [place] [address] PCP - General Family Practice 02/11/24 Lexie Bose, IT SOLUTIONS ARCHITECT CLEANING PROFESSIONAL [address] [place] [phone] Nurse Practitioner Cardiovascular Disease 07/01/22 Viviane Pacheco, IT SOLUTIONS ARCHITECT CLEANING PROFESSIONAL [address] [place] [phone] Nurse Practitioner Cardiovascular Disease 07/16/22 Genevieve Puentes NP [address] [place] [address] Nurse Practitioner Cardiology 07/25/22 Tin Mckenzie MD [address] [place] [phone] Cardiovascular Disease 11/04/22 Mauricio New MD [address] [place] [address] Assigned Surgical Provider 10/19/24 Sheila Lara MD [address] [place] [address] Assigned Heart and Vascular Provider 10/19/24 documented as of this encounter
[2024-12-04] VITALS (8 sets, daily range): BP systolic 102–114; BP diastolic 65–74; PULSE 79–89; RESP 20–22; TEMP 36.8; O2SAT 89–98; BMI 53.4
--- OUTSIDE RECORDS SUMMARY | 2024-12-04 22:32 | XMS_ITS | Encounter Summary ---
Author Organization [place] Address [address] [place] [address] Care Team Providers Care Steam Cleaning Machine Operator Name Role Phone Lexie Bose RESIDENTIAL SALES MANAGER DESK EDITOR Unavailable [phone] Viviane Pacheco RESIDENTIAL SALES MANAGER DESK EDITOR Unavailable [phone] Genevieve Puentes NP Unavailable [phone] Tin Mckenzie MD Unavailable [phone] Amarilis Rincon MD Primary Care Provider + [phone] Mauricio New MD Unavailable [phone] Sheila Lara MD Unavailable Reason for Visit * Reason Comments Pt. Information/instruction RHC prep Encounter Details Date Type Department Care Team (Latest Contact Info) Description 10/26/2024 Care Coordination [facility] Heart [address] [address] Renée Bobby, ARIELLA Pt. Information/instruct ion (RHC prep) Social History Tobacco Use Types Packs/Day Years Used Date Smoking Tobacco: Every Day Cigarettes Passive Smoke Exposure: Never Smokeless Tobacco: Never Alcohol Use Standard Drinks/Week Comments Not Currently 0 (1 standard drink = 0.6 oz pur e alcohol) Adolescent Education Answer Date Record ed Getting School Help Needed Not on file 03/21 Comments No Sex and Gender Information Value Date Recorded Sex Assigned at Not on file Legal Sex Female 11:51 AM CDT Gender Identity Not on file Sexual Orientation Not on file documented as of this encounter Progress Notes * Renée Bobby RN - 10/26/2024 12:55 PM CDT Coronary angiogram/PCI/Right Heart Cath prep instructions. Patient is scheduled for a Right Heart Cath at [facility] - [address], [address] [address] - Main Entrance of the Hospital on 11/01. Check in time is at 0630 AM and procedure to follow. Performing Bottom Scrubber: Dr. Lara Patient instructed to remain NPO for solid foods 8 hours prior to arrival and may have clear liquids up to 2 hours prior to arrival. Patient does not require extra fluids prior to procedure. Patient is taking insulin and should contact PCP regarding hold instructions prior to this procedure. Patient is on warfarin/coumadin and has been instructed to hold for 5 days prior to procedure, starting 10/27. Patient will be given instructions after the procedure as to when to resume. Patient is working with her [facility] Clinic for angela- procedure management. Patient is having a Right Heart Cath and should continue Patient instructed to continue bumex as prescribed. as prescribed. Patient is having a Right Heart Cath, no additional ASA is needed. Patient is taking Jardiance and will hold starting 10/29. Pt is prescribed Ozempic but reports she has not started it yet. She has been instructed to hold 7 days prior so she is not to start this medication until after the procedure. She may start after theprocedure is completed unless otherwise instructed. Patient advised to take their other daily medications the morning of the procedure with small sips of water. Patient advised to shower the night before and morning of their procedure with regular soap. Verified patient does not have a contrast allergy. Verified patient has someone available to drive them home from the hospital and can stay with them for 24 hours after the procedure. Patient advised they will have bedrest post procedure. Length of time is 2-6 hours and dependent onaccess site used for procedure. This bedrest is to allow proper clotting of the access site to prevent bleeding. Patient advised to notify care team with any new COVID like symptoms prior to procedure. Day of procedure phone number: Bebe at [phone] Patient is aware of visitor policy. Patient expresses understanding of above instructions and denies further questions at this time. Patient was given nurse team 7 phone [phone] to call during business day hours if questions orconcerns prior. Renée Bobby RN [facility] Heart [facility] ----- Message ----- From: Mitzy Goff Sent: 10/03/2024 1:06 PM CDT To: Mitzy Goff; Zee Rodriguez; Yi Pedroza; * Subject: RHC [place] 11/01/24 Angiogram Orders Location: [facility] - [address] [place] [address] - Main Entrance of the Hospital Procedure: Right Heart Cath Diagnosis: cardiac pacemaker in situ; atrial fibrillation with RVR; PH Procedure Date: 11/01/24 Patient Arrival Time: 630 Procedure Time: 0830 (pending emergency) Ordering Bottom Scrubber: Dr. Lara Performing Bottom Scrubber: Dr. Lara Cardiac Assessment Completed: Yes Date: 10/03/24 Provider: Dr Lara Pre-Procedure Labs completed: on admit Post Procedure BRIT appointment scheduled: Yes Date: 11/09 Provider: Angie Hess Patient Diabetic on Meds/Insulin: Yes If on Metformin/Synjardy, has 2 day post procedure BMP been scheduled: No ( and Thursday procedures should have Thursday BMP) Patient on Coumadin/Warfarin: Yes Patient on Pradaxa/Xarelto/Eliquis: No Patient on Invokana/Farxiga/Inpefa/Jardiance/Steglatro/Synjardy: No Patient on Adlyxin/Bydureon/Byetta/Mounjaro/Ozempic/Rybelsus/Soliquo/Trulicity/Victoza/Wego vy/Zepbound: No Does Patient have a history of bypass: No Pt advised to report any COVID like symptoms to care team prior to procedure. Appointment was scheduled: Face to Face documented in this encounter Plan of Treatment Not on file documented as of this encounter Visit Diagnoses Diagnosis Congestive heart failure, unspecified HF chronicity, unspecified heart failure type (H)- Primary documented in this encounter Care Teams Steam Cleaning Machine Operator Relationship Specialty Start Date End Date Amarilis Rincon MD [address] [place] [address] PCP - General Family Practice 02/11/24 Lexie Bose APRN DESK EDITOR [address] [place] [address] Nurse Practitioner Cardiovascular Disease 07/01/22 Viviane Pacheco APRN DESK EDITOR [address] [place] [address] Nurse Practitioner Cardiovascular Disease 07/16/22 Genevieve Puentes NP [address] [place] [address] Nurse Practitioner Cardiology 07/25/22 Tin Mckenzie MD [address] [place] [address] Cardiovascular Disease 11/04/22 Mauricio New MD [address] [place], [place] [address] Assigned Surgical Provider 10/19/24 Sheila Lara MD [address] [place] [address] Assigned Heart and Vascular Provider 10/19/24 documented as of this encounter
--- OUTSIDE RECORDS SUMMARY | 2024-12-04 22:32 | XMS_ITS | Encounter Summary ---
Author Organization [place] Address [address] [place] [address] Care Team Providers Care Hole Digger Truck Driver Name Role Phone Lexie Bose COLLECTIONS MANAGER RELAY CHECKER Unavailable [phone] Viviane Pacheco APRN RELAY CHECKER Unavailable [phone] Genevieve Puentes NP Unavailable [phone] Tin Mckenzie MD Unavailable [phone] Amarilis Rincon MD Primary Care Provider + [phone] Mauricio New MD Unavailable [phone] Sheila Lara MD Unavailable Reason for Visit * Reason Onset Date Comments Appointment 11/09/2024 Cancel 11/09 Hosp ital F/U Encounter Details Date Type Department Care Team (Late st Contact Info) Description 11/09/[address] [place] [address] None Appointment (Cancel 11/09 Hospital F/U) Social History Tobacco Use Types Packs/Day Years [...] on file documented as of this encounter Miscellaneous Notes * Telephone Encounter - Vandana Starkeyon - 11/09/2024 8:41 AM CDT [facility] Phone Message May a detailed message be left on voicemail: yes Reason for Call: Other: Patient would like to cancel her hospital F/U. Thank you Action Taken: Other: cardiology Travel Screening: Not Applicable Thank you! Specialty Access Center Date of Service: documented in this encounter Plan of Treatment Not on file documented as of this encounter Visit Diagnoses Not on filedocumented in this encounter Care Teams Hole Digger Truck Driver Relationship Specialty Start Date End Date Amarilis Rincon MD [address] [place] [address] PCP - General Family Practice 02/11/24 Lexie Bose APRN RELAY CHECKER [address] [place] [address] Nurse Practitioner Cardiovascular Disease 07/01/22 Viviane Pacheco APRN RELAY CHECKER [address] [address] Nurse Practitioner Cardiovascular Disease 07/16/22 Genevieve Puentes NP [address] [address] Nurse Practitioner Cardiology 07/25/22 Tin Mckenzie MD [address] [place] [address] Cardiovascular Disease 11/04/22 Mauricio New MD [address] [place] [address] Assigned Surgical Provider 10/19/24 Sheila Lara MD [address] [place] [address] Assigned Heart and Vascular Provider 10/19/24 documented as of this encounter
--- OUTSIDE RECORDS SUMMARY | 2024-12-04 22:32 | XMS_ITS | Encounter Summary ---
Author Organization [place] Address [address] [place] [address] Care Team Providers Care Assistant Professor In Family Studies Name Role Phone Lexie Bose QUALITY CONTROL SUPERVISOR CLINICAL RESEARCH SPEC Unavailable [phone] Viviane Pacheco QUALITY CONTROL SUPERVISOR CLINICAL RESEARCH SPEC Unavailable [phone] Genevieve Puentes NP Unavailable [phone] Tin Mckenzie MD Unavailable [phone] Amarilis Rincon MD Primary Care Provider + [phone] Mauricio New MD Unavailable [phone] Sheila Lara MD Unavailable Reason for Visit * Reason Onset Date Comments Appointment 08/18/2024 Re-schedule 08/18 appt. Encounter Details Date Type Department Care Team (Late st Contact Info) Description 08/18/2024 [facility] Heart [address] [place] [address] Jair Craft MD Appointment (Re-schedule 08/18/24 appt. ) Social History Tobacco Use Types Packs/Day Years Used Date Smoking Tobacco: Never Assessed Adolescent Education Answer Date Record ed Getting School Help Needed Not on file 03/21 Comments No Sex and Gender Information Value Date Recorded Sex Assigned at Not on file Legal Sex Female 11:51 AM CDT Gender Identity Not on file Sexual Orientation Not on file documented as of this encounter Miscellaneous Notes * Telephone Encounter - Chey Giordano - 08/18/2024 9:43 AM CST [facility] Phone Message May a detailed message be left on voicemail: yes Reason for Call: Other: Patient needs to re-schedule her appt for this afternoon due to transportation problems. I am confused with which dr she needs to schedule with due to her dx of cardiac pacemaker Please review and contact patient to re-schedule as needed. Thank you Action Taken: Other: cardiology Travel Screening: Not Applicable Thank you! Specialty Access Center Date of Service: CUTTER documented in this encounter Plan of Treatment Not on file documented as of this encounter Visit Diagnoses Not on filedocumented in this encounter Care Teams Assistant Professor In Family Studies Relationship Specialty Start Date End Date Amarilis Rincon MD [address] [place], [place] [id number] PCP - General Family Practice 02/11/24 Lexie Bose APRN CLINICAL RESEARCH SPEC [address] [place] [address] Nurse Practitioner Cardiovascular Disease 07/01/22 Viviane Pacheco APRN CLINICAL RESEARCH SPEC [address] [id number] Nurse Practitioner Cardiovascular Disease 07/16/22 Genevieve Puentes NP [address] [address] Nurse Practitioner Cardiology 07/25/22 Tin Mckenzie MD [address] [place] [address] Cardiovascular Disease 11/04/22 Mauricio New MD [address] [place] [address] Assigned Surgical Provider 10/19/24 Sheila Lara MD [address] [facility] [address] [place] [address] Assigned Heart and Vascular Provider 10/19/24 documented as of this encounter
--- OUTSIDE RECORDS SUMMARY | 2024-12-04 22:32 | XMS_ITS | Encounter Summary ---
Author Organization [place] Address [facility] [place] [address] Care Team Providers Care Boxcar Weigher Name Role Phone Lexie Bose DIRECTOR ADVERTISING PROFESSOR OF BIOSTATISTICS Unavailable [phone] Viviane Pacheco DIRECTOR ADVERTISING PROFESSOR OF BIOSTATISTICS Unavailable [phone] Genevieve Puentes NP Unavailable [phone] Tin Mckenzie MD Unavailable [phone] Amarilis Rincon MD Primary Care Provider + [phone] Mauricio New MD Unavailable [phone] Sheila Lara MD Unavailable Reason for Visit * Reason Onset Date Comments Pt. Information/instruction 10/31/2024 Encounter Details Date Type Department Care Team (Late st Contact Info) Description 10/31/2024 Telephone [facility] [address] [place] [id number] Gudelia Mancera, RN Pt. Information/instruction Social History Tobacco Use Types Packs/Day Years [...] encounter Miscellaneous Notes * Telephone Encounter - Gudelia Mancera RN - 10/31/2024 8:30 AM CDT Chart reviewed for upcoming procedure. documented in this encounter Plan of Treatment Not on file documented as of this encounter Visit Diagnoses Not on filedocumented in this encounter Care Teams Boxcar Weigher Relationship Specialty Start Date End Date Amarilis Rincon MD [address] [facility] [place] [address] PCP - General Family Practice 02/11/24 Lexie Bose APRN PROFESSOR OF BIOSTATISTICS [address] [place] [id number] Nurse Practitioner Cardiovascular Disease 07/01/22 Viviane Pacheco APRN PROFESSOR OF BIOSTATISTICS [address] [place] [address] Nurse Practitioner Cardiovascular Disease 07/16/22 Genevieve Puentes NP [address] [place] [address] Nurse Practitioner Cardiology 07/25/22 Tin Mckenzie MD [address] [place] [address] Cardiovascular Disease 11/04/22 Mauricio New MD [address] [place] [address] Assigned Surgical Provider 10/19/24 Sheila Lara MD [address] [place] [address] Assigned Heart and Vascular Provider 10/19/24 documented as of this encounter
--- OUTSIDE RECORDS SUMMARY | 2024-12-04 22:32 | XMS_ITS | Encounter Summary ---
Author Organization [place] [facility] [facility] [place] [address] Care Team Providers Care It Data Architect Name Role Phone Lexie Bose [employer] Unavailable [phone] Viviane Pacheco APRN [employer] Unavailable [phone] Genevieve Puentes NP Unavailable [phone] Tin Mckenzie MD Unavailable [phone] Amarilis Rincon MD Primary Care Provider + [phone] Mauricio eNw MD Unavailable [phone] Sheila Lara MD Unavailable Reason for Visit * Reason Onset Date Comments Clinic Care Coordination - Post Hospital 025 Post discharge phone call Encounter Details Date Type Department Care Team (Late st Contact Info) Description 11/02/2024 Telephone [facility] [address] [place] [phone] Candice Sanchez, RN Clinic Care Coordination - Post Hospital (Post discharge phone call) Social History Tobacco Use Types Packs/Day Years [...] encounter Miscellaneous Notes * Telephone Encounter - Candice Sanchez RN - 11/02/2024 12:52 PM CDT Patient was admitted to [facility] on 11/01/24 for OP right heart catheterization for further evaluation and management of pulmonary hypertension and tricuspid regurgitation. 11/01/24: RHC via RIJ showed: Right sided filling pressures are normal. Left sided filling pressures are normal. Mild elevated pulmonary hypertension. Normal cardiac output level. Right heart hemodynamics as follows: RA pressure 3 mmHg RV pressure 48/8 mmHg PA pressures 49/22/34 mmHg Wedge pressure 11 mmHg Cardiac index 2.2 L/min/m?? Blood pressure 120/80 mmHg Aortic saturation is 91% Right sided filling pressures are normal. Left sided filling pressures are normal. Mild elevated pulmonary hypertension. Normal cardiac output level. No medication changes made. Called patient to discuss any post hospital d/c questions she may have and confirm f/u appts. Patient denied any SOB, chest pain or lightheadedness. RIJ cardiac cath site is without bleeding, swelling, redness or signs of infection. RN confirmed with patient that she is scheduled for an OV on 11/09/24 at 1035 with CHRISTY Afsaneh Hessat our [place] [facility]. Patient advised to call clinic with any cardiac related questions or concerns prior to this christy't. Patient verbalized understanding and agreed with plan. Blanca Sanchez RN. documented in this encounter Plan of Treatment Not on file documented as of this encounter Visit Diagnoses Not on filedocumented in this encounter Care Teams It Data Architect Relationship Specialty Start Date End Date Amarilis Rincon MD [address] [place] [address] PCP - General Family Practice 02/11/24 Lexie Bose APRN [employer] [address] [place] [id number] Nurse Practitioner Cardiovascular Disease 07/01/22 Viviane Pacheco APRN [employer] [address] [id number] Nurse Practitioner Cardiovascular Disease 07/16/22 Genevieve Puentes NP [address] 278605 Nurse Practitioner Cardiology 07/25/22 Tin Mckenzie MD [address] [place] [id number] Cardiovascular Disease 11/04/22 Mauricio New MD [address] [facility] [place] [id number] Assigned Surgical Provider 10/19/24 Sheila Lara MD [address] [place] [id number] Assigned Heart and Vascular Provider 10/19/24 documented as of this encounter
--- OUTSIDE RECORDS SUMMARY | 2024-12-04 22:32 | XMS_ITS | Clinical Summary ---
Author Organization [employer] [facility] Address [address] [place] [address] Care Team Providers Care Line Out Worker Name Role Phone Shanae Horn CMA Unavailable [phone] Amarilis Rincon MD Unavailable [phone] Jacquie Haley NP Primary Care Provid er Helena Dickens PharmD Unavailable [phone] Sanjay Harrington Unavailable Genevieve Peña Unavailable [phone] Johanne Mix RN Unavailable [facility], [facility] Unavailable [phone] Jacquie Haley NP Unavailable + [phone] Nazanin NorrisSW Unavailable [phone] Allergies No known active allergies Medications acetaminophen (TYLENOL EXTRA STRGTH) 500 mg tablet [...] be used by PAP 09/10/19 24 Active albuterol HFA (PRO-AIR; VENTOLIN; PROVENTIL) [...] already. 100 Each 2 11/27/19 24 Active pen needle (BD Insulin Pen Needle UF) 29 gauge x 1/2 (disposable insulin pen needle)Indication s:Type 2 diabetes mellitus with complication, without long-term current use of insulin (HC) USE DIRECTED with insulin. 100 Each 3 01/22/20 24 Active metoprolol succinate SR (TOPROL XL) [...] daily. 60 g 11 07/20/19 25 Active dilTIAZem CD (CARDIZEM CD) 240 mg extended release 24 hr capsuleIndication s:Chronic atrial fibrillation (HC) Take 1 Capsule (240 mg) by mouth once daily. 90 Capsule 3 07/25/19 25 Active semaglutide (Ozempic) 2 mg/3 mL subcutaneous penIndications:Ty pe 2 diabetes mellitus with complication, with long-term current use of insulin (HC) Inject 0.25 mg subcutaneous once weekly. for 4 weeks then increase to 0.5mg weekly for 4 weeks. 09/22/19 25 Active PeerbyStyle René 3 Plus Sensor for continuous blood glucose monitor (CGM) To be used to read blood sugars, follow machinist/machine builder directions. 10/13/19 25 Active potassium chloride 20 mEq extended-release tabletIndications :Chronic diastolic CHF (congestive heart failure) (HC) Take 2 Tablets (40 mEq) by mouth two times daily with meals. 180 Tablet 3 10/26/19 25 Active bumetanide 1 mg tabletIndications :Chronic diastolic CHF (congestive heart failure) (HC) Take 2mg PO in the morning and 2mg PO in the afternoon 360 Tablet 3 10/26/19 25 Active warfarin 2.5 mg tabletIndications :Paroxysmal atrial fibrillation (HC),Anticoagulat ion monitoring, INR range 2-3 Take by mouth 3.75 mg (2.5 mg x 1.5) every Kirsetn; 2.5 mg (2.5 mg x 1) all other days in the evening OR as directed 11/11/19 25 Active insulin glargine (U-100) (Lantus Solostar U-100 Insulin) 100 unit/mL (3 mL) penIndications:Ty pe 2 diabetes mellitus with complication, with long-term current use of insulin (HC) Inject 25 units subcutaneous before bedtime. Product desired: LANTUS SOLOSTAR 30 mL 2 11/20/19 25 Active metOLazone 2.5 mg tabletIndications :Chronic diastolic CHF (congestive heart failure) (HC) Take 2 tablets (5mg) by mouth as needed per directions from medical team. 11/25/19 25 Active gabapentin 300 mg capsuleIndication s:Controlled type 2 diabetes mellitus with diabetic neuropathy, with long-term current use of insulin (HC) Take 1 cap (300mg) by mouth in AM and 2 caps (600mg) by mouth in PM. 270 Capsule 3 11/25/19 25 Active albuterol-ipratro pium (2.5-0.5 mg) in 3 mL NEBULIZATION solutionIndicatio ns:Chronic obstructive pulmonary disease, unspecified COPD type (HC) Inhale 3 mL via a nebulizer every 6 hours if needed for Shortness Of Breath or Wheezing. 90 mL 1 12/05/19 25 Active amoxicillin-clavu lanate 875-125 mg tabletIndications :Chronic obstructive pulmonary disease, unspecified COPD type (HC) Take 1 Tablet by mouth two times daily with meals for 5 days. 10 Tablet 12/05/19 25 025 Active doxycycline hyclate 100 mg capsuleIndication s:Community acquired pneumonia, unspecified laterality Take 1 Capsule (100 mg) by mouth two times daily for 5 days. 10 Capsule 12/05/19 25 025 Active predniSONE 20 mg tabletIndications :Chronic obstructive pulmonary disease, unspecified COPD type (HC) Take 2 Tablets (40 mg) by mouth once daily with a meal. 10 Tablet 12/05/19 25 Active nebulizer accessories kitIndications:Ch ronic obstructive pulmonary disease, unspecified COPD type (HC) For home use. Length of need: 99 1 Kit 12/05/19 25 Active insulin glargine, U-100, (Lantus Solostar U-100 Insulin) 100 unit/mL (3 mL) penIndications:Ty pe 2 diabetes mellitus with complication, with long-term current use of insulin (HC) Inject 25 units subcutaneous before bedtime. Product desired: LANTUS SOLOSTAR 30 mL 2 07/25/19 25 025 Discontin ued(Reord er (E-cancel not sent)) gabapentin (NEURONTIN) 300 mg capsuleIndication s:Controlled type 2 diabetes mellitus with diabetic neuropathy, with long-term current use of insulin (HC) Take 2 Capsules (600 mg) by mouth two times daily. 360 Capsule 3 07/25/19 25 025 Discontin ued(Reord er (E-cancel not sent)) warfarin 2.5 mg tabletIndications :Paroxysmal atrial fibrillation (HC),Anticoagulat ion monitoring, INR range 2-3 Take by mouth 10/26: Hold; 5/1: Hold; 5/2: Hold; 5/3: Hold; 5/4: Hold; Otherwise 3.75 mg every Kirsten; 2.5 mg all other days in the evening OR as directed 10/08/19 25 025 Discontin ued(Reord er (E-cancel not sent)) metOLazone 2.5 mg tabletIndications :Chronic diastolic CHF (congestive heart failure) (HC) Take 1 tablet (2.5mg) by mouth as needed if weight 338 lbs or greater per MD direction. 10 Tablet 1 10/26/19 025 Discontin ued(Reord er (E-cancel not sent)) Active Problems Problem Noted Date Diagnosed Date Acute respiratory failure with hypoxia Stage 3b chronic kidney disease 07/25/2024 Severe [...] Waller Relationship: Sister and brother in law Phone--[phone] Secondary Health Care Agent: Bharat Parkinson Relationship: [...] her mother Winsome Parkinson on 10/01/2009 at [facility]. Winsome is not Sydnie Montoya's health care agent but was present. The health care agents are nephew, Man Waller; brother Marcus Parkinson and sister Agustina Arias. Patient and family provided with: Advance Care Planning Discussion Guide Health Care Directive Goals and Values: Patient/family identified factors that may influence treatment preferences: Sydnie's rene/judaism is important to her. She is a member of [facility] in [place]. Understanding of illness patient identifies being diabetic, we briefly discussed dialysis and Sydnie would elect dialysis. Present/past experiences related to illness or father of heart attack-was brought to hospital in morning and by evening had worsened and -their air pollution compliance inspector was with him at time of and [...] Agents identified. Primary health care agent is nephMan loco; secondary health care agent is brother, Marcus [...] 01/29/2021 Aftercare following surgery; R NORI 03/2016 [facility] 04/21/2016 01/29/2021 Diabetic neuropathy 04/21/2016 02/01/20 21 Hypopotassemia 04/04/2012 09/22/2022 Neuropathy 05/29/2010 01/08/2016 NEUROPATHY - DIABETIC 07/02/20052020 INSECT BITE 01/03/2005 01/08/2016 OBESITY-BMI 56 09/10/2004 06/18/2016 Atrial fibrillation 05/22/2003 05/30/20 10 HYPERTENSION 07/01/2001 01/31/2021 Type 1 diabetes mellitus wit h diabetic polyneuropathy 07/01/2001 01/08/2016 PAIN, ABDOMINAL, UNSPECIFIED SITE 09/10/2004 HERNIA, 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 09/10/2004 EXAMINATION, PREOPERATIVE NEC 09/10/2004 COUGH 09/10/2004 Encounters Date Type Department Care Team Description 12/04/2024 Nurse Triage [address] [address] Jacquie Haley NP Complex Care Management 12/01/2024 Anticoagulation (warfarin) [facility] Centralized Nursing Programs [address] [place] [address] Clinic, [facility] Inr Anticoagulation ([facility]) 11/29/2024 1:30 PM CDT Home Care Visit [address] [address] Alissa Call, OTR OT - EDEMA/LYMPHEDEMA INITIAL ASSESSMENT 11/25/2024 5:00 PM CDT Home Care Visit [address] [address] Alissa Call OTR LYMPHEDEMA CHART CONSULT 11/25/[address] [address] Renetta Grande, regulatory consultant ([facility]) 11/24/2024 10:30 AM CDT Home Care Visit [address] [address] Renetta Grande RN SN - HOME VISIT 11/24/2024 Nurse Triage [address] [address] Jacquie Haley NP Medication Management 11/22/2024 12:30 PM CDT Home Visit [address] [address] Amarilis Rincon MD [facility] Co-Care 11/19/[address] [address] Jacquie Haley NP Refill Request 11/18/2024 2:30 PM CDT Home Care Visit [address] [address] Alissa Nicholson RN SN - PRN HOME VISIT 11/18/2024 Orders Only [facility] [address] [place] [address] Jacquie Haley NP <No scans attached> 11/18/2024 Travel 11/17/2024 10:30 AM CDT Home Care Visit [address] [address] Alissa Nicholson RN SN - HOME VISIT 11/17/2024 Anticoagulation (warfarin) [address] [address] Clinic, [facility] Anticoagulation ([facility]) 11/16/2024 Nurse Triage [address] [place] [address] Jacquie Haley NP Weight (Gain ) 11/10/2024 2:00 PM CDT Home Care Visit [address] [address] Carleen Hernandez RN SN - HOME VISIT 11/10/2024 Anticoagulation (warfarin) [address] [address] Clinic, [facility] Anticoagulation (Home Care) 11/09/2024 Nurse Triage [address] [address] Jacquie Haley NP Home Care (diarrhea ) 11/08/2024 3:00 PM CDT Home Care Visit [address] [address] Alissa Nicholson RN SN - HOME VISIT 11/05/2024 Nurse Triage [address] [address] Jacquie Haley NP Leg Swelling 11/03/2024 4:00 PM CDT Home Care Visit [address] [address] Alissa Nicholson RN SN - HOME VISIT 10/27/2024 12:30 PM CDT Home Care Visit [address] [address] Jeaneth Simon RN SN - OASIS RECERTIFICATION 10/27/2024 Plan of Care Documentation [address] [address] 10/27/2024 Orders Only [facility] [address] [place] [address] Jacquie Haley NP Lab 10/26/[address] [address] Sarah Llamas regulatory consultant (labs) 10/26/2024 Nurse Triage [address] [address] Jacquie Haley NP Medication Management 10/25/2024 10:30 AM CDT Home Visit [address] [address] Jacquie Haley NP [facility] Co-Care 10/24/2024 Travel 10/19/2024 12:00 PM CDT Home Care Visit [address] [address] Alissa Nicholson RN SN - HOME VISIT 10/19/2024 Anticoagulation (warfarin) [address] [address] Clinic, [facility] Anticoagulation ([facility]- Home Care) 10/12/2024 3:00 PM CDT Home Care Visit [address] [address] Alissa Nicholson RN SN - HOME VISIT 10/12/2024 1:00 PM CDT Pharmacist Medication Management [facility] [address] [place] [address] Helena Dickens, PharmD Pharmacist Medication Management (Follow up) 10/12/[address] [address] Jacquie Haley NP Refill Request (Burmetanide ) 10/12/2024 Nurse Triage [address] [address] Jacquie Haley NP Need Meds (bumetanide) 10/07/2024 Anticoagulation (warfarin) [address] [facility] Inr Anticoagulation (Chart update) 10/05/2024 2:30 PM CDT Home Care Visit [address] [address] Alissa Nicholson RN SN - HOME VISIT 10/05/[address] [address] Jacquie Haley NP Anticoagulation (10/31/2024 Right Heart Cath) 10/05/2024 Anticoagulation (warfarin) [facility] Nursing Programs [address] [place] [address] [employer], [facility] Anticoagulation ([facility]) 09/27/2024 3:00 PM CDT Home Care Visit [address] [address] Zoe Lugo RN SN - HOME VISIT 09/27/[address] [address] Zoe Lugo, regulatory consultant (Weight/Edema) 09/27/2024 Anticoagulation (warfarin) [address] [facility] In[facility] Anticoagulation (Home Care/[facility]) 09/24/2024 Orders Only [address] [address] Jaleesa Gonzalez, BAKERY DEMONSTRATOR <No scans attached> 09/24/2024 Nurse Triage [address] [address] Jacquie Haley NP Abnormal Lab Results 09/22/2024 11:00 AM CDT Home Care Visit [address] [address] Alissa Nicholson, ARIELLA SN - HOME VISIT 09/22/2024 Patient Outreach [facility] Care Management - Advanced Care Team [address] [place] [address] Johanne Mix, ARIELLA [facility] ([facility] RNCC annual assessment) 09/22/2024 Travel 09/22/[address] [facility] [address] [place] [address] Amarilis Rincon MD Lab 09/22/2024 Orders Only [address] [address] Amarilis Rincon MD <No scans attached> 09/21/2024 2:30 PM CDT Pharmacist Medication Management [facility] [address] [place] [address] Helena Dickens, LigiaD Pharmacist Medication Management (Annual 2024 CMR-home) 09/20/2024 3:00 PM CDT Home Care Visit [address] [address] Alissa Nicholson RN SN - HOME VISIT 09/20/2024 Travel 09/19/2024 Orders Only [address] [address] Jacquie Haley NP <No scans attached> 09/16/2024 3:00 PM CDT Home Care Visit [address] [address] Alissa Nicholson RN SN - HOME VISIT 09/16/2024 12:30 PM CDT Home Visit [address] [address] Jacquie Haley NP [facility] Co-Care 09/16/2024 Orders Only [facility] [address] [place] [address] Jacquie Haley NP <No scans attached> 09/13/2024 3:30 PM CDT Home Care Visit [address] [address] Alissa Nicholson RN SN - HOME VISIT 09/13/2024 Anticoagulation (warfarin) [facility] [address] [place] [address] [facility] Antico[facility] ([facility]) 09/09/2024 3:00 PM CDT Home Care Visit [address] [address] Alissa Nicholson, RN SN - HOME VISIT 09/09/2024 Orders Only [address] [address] Amarilis Rincon MD <No scans attached> 09/09/2024 Orders Only [facility] [address] [place] [address] Amarilis Rincon MD <No scans attached> 09/08/2024 12:30 PM CDT Home Care Visit [address] [address] Alissa Nicholson, ARIELLA SN - HOME VISIT 09/06/2024 2:00 PM CDT Home Care Visit [address] [address] Noris Parker, OT OT - [id number]-LLJJ-JNYE ASSESSMENT 09/06/[address] [address] Jacquie Haley, BAKERY DEMONSTRATOR Lab 09/05/2024 1:00 PM CDT Home Care Visit [address] [address] Eusebia Steward, PT PT - INITIAL ASSESSMENT 09/05/[address] [address] Eusebia Steward, PT Home Care (Weight Gain) from Last 3 Months Immunizations Immunization Administration Dates Next Due AMB Influenza, IIV3 (Age >=3 years) Preserve Free (Flu Clinic Only) 03/17/2013 AMB Influenza, IIV3 (Age >=3 years)(Flu Clinic Only) 04/18/2010,04/19/2008 COVID-19 VACCINE SPIKEVAX (M ODERNA 50MCG/0.5ML) 12YO+ PFS 04/08/2024,06/05/2023 COVID-19 vaccine (Moderna 50mcg/0.5mL) 12YO+ BIVALENT PF, MDV 03/19/2022 COVID-19 vaccine (Moderna Rashid maci 50mcg/0.25mL) PF, MDV 05/28/2021 COVID-19 vaccine (Rem[employer]-Bio NTech 30mcg/0.3mL) PF, MDV 09/27/2020,09/07/2020 Influenza, High-dose [...] Date Smoking Tobacco: Every Day Cigarettes 1 55.4 Started: 06/29/1969 Smokeless Tobacco: Never Tobacco Cessation:Ready to Q uit: No; Counseling Given: Yes Comments:pt declines info but offered Alcohol Use Standard Drinks/Week Comments No 0 (1 standard drink = 0.6 oz pur e alcohol) Alcoholic Drinks/day: 0 PHQ-2 Answer Date Recorded PHQ-2 TOTAL SCORE 0 10/24/2024 Financial Resource Strain Answer Date R ecorded Difficulty of Paying Living Expenses Not on file 06/20/2021 Difficulty of Paying Living Expenses Not on file 06/20/2021 Comments No Sex and Gender Information Value Date Recorded Sex Assigned at Not on file Legal 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 Gender Identity Not on file Sexual Orientation Not on file Occupation Industry Job Start Date Job End Date Retired Not on file Not on file Not on file Obstetrics History Last Filed Vital Signs Vital Sign Reading Time Taken Comments Blood Pressure 102/68 11/29/2024 2:30 PM CDT Pulse 96 11/29/2024 2:30 PM CDT Temperature 36.7 C (98 F) 11/29/2024 2:30 PM CDT Respiratory Rate 18 11/29/2024 2:30 PM CDT Oxygen Saturation 96% 11/29/2024 2:3 0 PM CDT at rest on RA Inhaled Oxygen Concentration - - Weight 150.2 kg (331 lb 1.6 oz) 11/29/2024 1:38 PM CDT stated from today Height 167.6 cm (5' 6) 10/25/2024 11:2 5 AM CDT Body Mass Index 53.44 10/25/2024 11:25 AM CDT Plan of Treatment Upcoming Encounters Date Type Department Care Team (Late st Contact Info) Description 12/08/2024 4:00 AM CDT Home Care Visit [address] [address] Alissa Nicholson, RN [address] [place] [address] 12/08/2024 3:00 PM CDT Home Care Visit [address] [address] Alissa Call, OTR [address] [place] [address] 12/12/2024 5:00 AM CDT Home Care Visit [address] [address] Alissa Call, OTR [address] [place] [address] 12/15/2024 4:00 AM CDT Home Care Visit [address] [address] Alissa Nicholson, RN [address] [place] [address] 12/22/2024 4:00 AM CDT Home Care Visit [address] [address] Alissa Nicholson, RN [address] [place] [address] 12/22/2024 10:30 AM CDT Home Visit [address] [address] Jacquie Haley, BAKERY DEMONSTRATOR [address] [place] [address] 12/26/2024 6:30 AM CDT Appointment [address] [address] Alissa Call, OTR [address] [place] [address] Health Maintenance Due Date Last Done Comments Fecal testing sDNA-FIT (Cologuard) for age 45-75 10/10/1995 RSV vaccine for adults or (1 - Risk 60-74 years 1-dose series) 2010 Mammogram for age 45-75 06/21/2011 06/21/2010 (Decli rebecca) DEXA/DXA scan for age 65+ 10/10/[address] (for lung CA) age 50-80 01/26/2020 01/25/2019 COVID-19 vaccine series ( season) 2024 04/08/2024, 06/05/2023, 03/19/2022, Additional history exists BMI (ht and wt on same day) for age 18+ 10/25/2025 10/25/2024, 07/16/2022, 03/19/2022, Additional history exists Medicare Wellness for age 65+ 10/26/2025 10/25/2024, 03/19/2022, 01/31/2021, Additional history exists Depression screening for age 12+ 10/27/2025 10/27/2024, 10/26/2024, 10/26/2024, Additional history exists Lipids for age 45-75 09/07/2028 09/08/2023, 03/19/2022, 10/18/2020, Additional history exists Tetanus booster 01/30/2030 01/31/2020, 02/2009, 07/04/2003 Hepatitis C screening for age 18-79 Completed 10/06/2007 Pneumococcal series for age 50+ Completed 04/27/2018, 08/11/2016, 07/04/2003, Additional history exists Tdap Completed 01/31/2020, 03/07/2009 Influenza Vaccine Completed 04/08/2024, , 03/19/2022, Additional history exists Zoster (shingles) series for age 50+ Completed 04/18/2024, 01/31/2020, 07/08/2013 Hepatitis B series for 19+ Aged Out N o longer eligible based on patient's age to complete this topic Procedures Procedure Name Priority Date/Time Associated Diagnosis Comments INR,POCT Routine 12/01/2024 BASIC METABOLIC PANEL Routine 11/18/2024 4:12 PM CDT Chronic diastolic CHF (congestive heart failure) (HC) INR,POCT Routine 11/17/2024 INR,POCT Routine 11/10/2024 BASIC METABOLIC PANEL Routine 10/27/2024 1:19 PM CDT Chronic diastolic CHF (congestive heart failure) (HC) INR,POCT Routine 10/19/2024 INR,POCT Routine 10/05/2024 INR,POCT Routine 09/27/2024 URINALYSIS MICROSCOPIC Routine 09/22/2024 12:06 PM CDT Stage 3b chronic kidney disease (HC) URINE CULTURE Routine 09/22/2024 12:06 PM CDT Stage 3b chronic kidney disease (HC) UA W/ SEDIMENT EXAM REFLEXED PER CRITERIA Routine 09/22/2024 12:06 PM CDT Stage 3b chronic kidney disease (HC) BASIC METABOLIC PANEL Routine 09/16/2024 3:20 PM CDT Chronic diastolic CHF (congestive heart failure) (HC) INR,POCT Routine 09/13/2024 4:04 PM CDT PRO-BNP Routine 09/09/2024 3:47 PM CDT Chronic diastolic CHF (congestive heart failure) (HC) BASIC METABOLIC PANEL Routine 09/09/2024 3:47 PM CDT Chronic diastolic CHF (congestive heart failure) (HC) LIPID PANEL Routine 09/08/2023 12:02 PM CDT Type 2 diabetes mellitus with complication, with long-term current use of insulin (HC) CT CHEST PE STUDY STAT 01/25/2019 4:3 9 PM CDT ANTI HCV Routine 10/06/2007 11:51 AM CDT Hepatitis, Unspecified from Last 3 Months or Most Recently Relevant to Health Maintenance Results * (ABNORMAL) INR,POCT (12/01/2024) Only the most recent of7 resultswithin the time period is included. INR 2.6(EXTERNA L) 0.8 - 1.1 [facility] Blood BLOOD SPECIMEN / Unknown 12/01/2024 Jacquie Haley BAKERY DEMONSTRATOR LABORATORY Zulma l Result [facility] & [address] [address] * (ABNORMAL) BASIC METABOLIC PANEL (11/18/2024 4:12 PM CDT) Only the most recent of4 resultswithin the time period is included. [facility] GLUCOSE 209(H) 65 - 99 mg/dL [facility] Comment: Fasting reference interval For someone without known diabetes, a glucose value >125 mg/dL indicates that they may have diabetes and this should be confirmed with a follow-up test. UREA NITROGEN (BUN) 22 7 - 25 mg/dL [facility] CREATININE 1.61(H) 0.60 - 1.00 mg/dL [facility] EGFR 33(L) > OR = 60 mL/min/1.7 3m2 [facility] BUN/CREATININE RATIO 14 6 - 22 (calc) [facility] SODIUM 140 135 - 146 mmol/L [facility] POTASSIUM 3.8 3.5 - 5.3 mmol/L [facility] CHLORIDE 95(L) 98 - 110 mmol/L [facility] CARBON DIOXIDE 32 20 - 32 mmol/L [facility] ELECTROLYTE BALANCE 13 7 - 17 mmol/L (calc) [facility] CALCIUM 8.6 8.6 - 10.4 mg/dL [facility] Blood BLOOD SPECIMEN / Unknown 11/18/2024 4:12 PM CDT 11/19/2024 3:45 AM CDT Jacquie Haley BAKERY DEMONSTRATOR CHEMISTRY Zulma l Result [facility] [address] [place] [address], [facility] [address] [place] [address] * (ABNORMAL) URINALYSIS MICROSCOPIC (09/22/2024 12:06 PM CDT) RBC 0-2 0-2, None Seen /HPF 09/22/2024 12:39 PM CDT [facility] WBC >100(A) 0-2, 3-5, None Seen /HPF 09/22/2024 12:39 PM CDT [facility] BACTERIA Many(A) None Seen, Rare, Few Bacteria/ HPF 09/22/2024 12:39 PM CDT [facility] EPITHELIAL CELLS Moderate(A) None Seen, Few Epi/HPF 09/22/2024 12:39 PM CDT [facility] Mucus Present 09/22/2024 12:39 PM CDT [facility] WHITE CELL CLUMPS Present(A) (none) 09/22/2024 12:39 PM CDT [facility] Urine URINE SPECIMEN / Unknown Non-Blood / Unknown 09/22/2024 12:06 PM CDT 09/22/2024 12:06 PM CDT Narrative [facility] - 09/22/2024 12:39 PM CDT There are numerous leukocytes (packed WBC) which may affect the accuracy of results. Interpret with caution. us Amarilis Rincon MD URINE Final Resu lt [facility] [address] [place] [address] * (ABNORMAL) URINE CULTURE (09/22/2024 12:06 PM CDT) CULTURE RESULT(A) 09/24/2024 2:48 PM CDT [facility] CULTURE >100,000 CFU/mL Proteus mirabilis 09/24/2024 2:48 PM CDT [facility] CULTURE 10,000-50,000 CFU/mL Multiple organisms probable contaminants 09/24/2024 2:48 PM CDT [facility]OR[facility] Urine URINE SPECIMEN / Unknown Non-Blood / Unknown 09/22/2024 12:06 PM CDT 09/22/2024 12:06 PM CDT Narrative Organism Antibiotic Method Susceptibility Proteus mirabilis TRIMETHOPRIM/SULF <=1/19: S Proteus mirabilis AMPICILLIN <=2: S Proteus mirabilis CEFAZOLIN 4: I Proteus mirabilis CEFAZOLIN-UC 4: S Comment:Cefazolin-UC interpretations are for therapy of uncomplicated UTIs due to E.coli, K.pneumoniae, or P.mirablis. Cefazolin breakpoint is used as a surrogate to predict results for the oral agents - cefdinir, cefuroxime, and cephalexin, when used for therapy of uncomplicated UTIs due to E coli, K, pneumoniae, and P. mirabilis. The FDA recommends cefadroxil susceptibility can be deduced from cefazolin. Proteus mirabilis GENTAMICIN <=1: S Proteus mirabilis CEFTRIAXONE <=0.25: S Proteus mirabilis CEFTAZIDIME <=0.5: S Proteus mirabilis LEVOFLOXACIN <=0.12: S Proteus mirabilis CIPROFLOXACIN <=0.06: S Proteus mirabilis PIPERACILLIN/TAZO <=4: S Proteus mirabilis AMPICILLIN/SULBACTAM <=2: S Proteus mirabilis CEFEPIME <=0.12: S Proteus mirabilis MEROPENEM <=0.25: S Proteus mirabilis NITROFURANTOIN 128: R us Amarilis Rincon MD MICROBIOLOGY Final Resu lt [facility] [address] [place] [address], * (ABNORMAL) UA W/ SEDIMENT EXAM REFLEXED PER CRITERIA (09/22/2024 12:06 PM CDT) COLOR Yellow Yellow Color 09/22/2024 12:17 PM CDT [facility] CLARITY Cloudy(A) Clear Clarity 09/22/2024 12:17 PM CDT [facility] SPECIFIC GRAVITY,URINE 1.015 1.010, 1.015, 1.020, 1.025 09/22/2024 12:17 PM CDT [facility] PH,URINE 6.0 6.0, 7.0, 8.0, 5.5, 6.5, 7.5, 8.5 09/22/2024 12:17 PM CDT [facility] UROBILINOGEN, QUALITATIVE Normal Normal EU/dl 09/22/2024 12:17 PM CDT [facility] PROTEIN, URINE Negative Negative mg/dL 09/22/2024 12:17 PM CDT [facility] GLUCOSE, URINE >=1000(A) Negative mg/dL 09/22/2024 12:17 PM CDT [facility] KETONES,URINE Negative Negative mg/dL 09/22/2024 12:17 PM CDT [facility] BILIRUBIN,URI NE Negative Negative 09/22/2024 12:17 PM CDT [facility] OCCULT BLOOD,URINE Trace(A) Negative 09/22/2024 12:17 PM CDT [facility] NITRITE Negative Negative 09/22/2024 12:17 PM CDT [facility] LEUKOCYTE ESTERASE Negative Negative 09/22/2024 12:17 PM CDT [facility] Urine URINE SPECIMEN / Unknown Non-Blood / Unknown 09/22/2024 12:06 PM CDT 09/22/2024 12:06 PM CDT us Amarilis Rincon MD URINE Final Resu lt Performing Organization Address City/[facility]/ZIP Co de Phone Number [facility] [address] [place] [address] * (ABNORMAL) PRO-BNP (09/09/2024 3:47 PM CDT) NT PROBNP 3,242(H) <125 pg/mL [facility] Blood BLOOD SPECIMEN / Unknown 09/09/2024 3:47 PM CDT 09/09/2024 3:49 PM CDT us Amarilis Rincon MD SEND OUTS Final Resu lt [facility] [id number] [place] [address], [place] [address] [place] [address] * (ABNORMAL) LIPID PANEL (09/08/2023 12:02 PM CDT) CHOLESTEROL,TOTAL 119 100 - 199 mg/dL 09/08/2023 2:12 PM CDT [facility] Comment: Cholesterol, Total Reference Ranges Desirable <200 mg/dL Borderline 200-239 mg/dL High >=240 mg/dL TRIGLYCERIDES 189(H) <150 mg/dL 09/08/2023 2:12 PM CDT [facility] HDL CHOLESTEROL 32(L) >40 mg/dL 2:12 PM CDT [facility] NON-HDL CHOLESTEROL 87 <145 mg/dl 09/08/2023 2:12 PM CDT [facility] CHOL/HDL RATIO 3.72 <4.50 09/08/2023 2:12 PM CDT [facility] LDL CHOLESTEROL 49 <=130 mg/dL 09/08/2023 2:12 PM CDT [facility] VLDL CHOLESTEROL 38(H) <=30 mg/dL 09/08/2023 2:12 PM CDT [facility] PROVIDER ORDERED STATUS RANDOM 09/08/2023 2:12 PM CDT [facility] Blood BLOOD SPECIMEN / Unknown Venipuncture / Unknown 09/08/2023 12:02 PM CDT 09/08/2023 1:17 PM CDT us Amarilis Rincon MD CHEMISTRY Final Resu lt [facility] [address] [place] [address], * CT CHEST PE STUDY (01/25/2019 4:39 PM CDT) Anatomical Region Laterality Modality CHEST, THORAX, HEART Computed To mography 01/25/2019 4:39 PM CDT Narrative 01/25/2019 4:46 PM CDT EXAM: CT CHEST PE STUDY LOCATION: [facility] DATE/TIME: 01/25/2019 4:39 PM INDICATION: Shortness Of Breath. Elevated d-dimer. COMPARISON: None. TECHNIQUE: Helical acquisition through the chest was performed during the arterial phase of contrast enhancement using IV contrast. 2D and 3D reconstructions were performed by the applied technologist. Dose reduction techniques were used. IV [...] 01/25/2019 EXAM: CT CHEST PE STUDY LOCATION: [facility] DATE/TIME: 01/25/2019 4:39 PM INDICATION: Shortness Of Breath. Elevated d-dimer. COMPARISON: None. TECHNIQUE: Helical acquisition through the chest was performed duringthe arterial phase of contrast enhancement using IV contrast. 2D and 3D reconstructions were performed by the applied technologist. Dose reductiontechniques were used. IV CONTRAST: [...] 11:51 AM CDT) ANTI HCV Non-reacti ve [facility] Blood specimen (specimen) BLOOD SPECIMEN / Unknown 10/06/2007 11:51 AM CDT 10/06/2007 11:50 AM CDT us Cherie Nagel MD SEND OUTS Final Result [facility] INTERNAL ZIP [id number] [place] [id number] from Last 3 Months or Most Recently Relevant to Health Maintenance Insurance [employer] MEDICARE ADVANTAGE MR HC [employer] MEDICARE PDGM [employer] MED[employer]ARE ADVANTAGE MR Advance Directives Documents on File Type Date Recorded Patient Finish Filer Expl anation POLST 07/20/2024 Healthcare Directive 08/04/2022 [...] 8:41 PM 02/02/2019 3:21 PM Care Teams Line Out Worker Relationship Specialty Start Date End Date Jacquie Haley NP [address] [place] [address] PCP - General Nurse Practitioner - Adult 06/03/23 Shanae Horn CMA [address] [place] [address] [facility] 08/20/22 Amarilis Rincon MD [address] [place] [address] [facility] Family Practice 02/11/23 Helena Dickens, PharmD [address] [place] [address] Pharmacist Medication Management Pharmacology 06/18/23 Sanjay Harrington [id number] [place] [id number] Cardiology Cardiovascular Disease 08/20/23 Genevieve Peña [address] [place] [address] [facility] Care Guide 10/18/23 Johanne Mix, ARIELLA [address] [place] [address] [facility] Registered Nurse 10/18/23 [facility] [address] [place] [address] 08/29/24 Jacquie Haley NP [address] [place] [address] [facility] Nurse Practitioner - Adult 10/19/24 Nazanin Norris, MARELY [address] [place] [address] [facility] Engineering And Scientific Programmer 11/16/24
--- OUTSIDE RECORDS SUMMARY | 2024-12-04 22:32 | XMS_ITS | Encounter Summary ---
Author Organization [facility] Address [address] [place] [address]. [place] [address] Care Team Providers Care [employer] Name Role Phone Lexie Bose PAINT STOCK CLERK PIZZ[employer] HUT ASSISTANT Unavailable [phone] Viviane Pacheco APRN [employer] H[employer] ASSISTANT Unavailable [phone] Genevieve Puentes NP Unavailable [phone] Tin Mckenzie MD Unavailable [phone] Amarilis Rincon MD Primary Care Provider + [phone] Mauricio New MD Unavailable [phone] Sheila Lara MD Unavailable Encounter Details Date Type Department Care Team (Late st Contact Info) Description 12/01/2024 [facility] [place] [address] [facility] [address] [place] [address] Sheila Lara MD [address] [facility] [address] [place] [address] Social History Tobacco Use Types Packs/Day Years [...] encounter Miscellaneous Notes * Telephone Encounter - Maya Bolanos - 12/01/2024 10:25 AM CDT 2nd attempt- Left voicemail for the patient to call back and schedule the following: Appointment type: Return Cardiology Provider: Dr Lara Return date: now Additional appointment(s) needed: pt is overdue for labs and Dr Lara BRIT follow up appt Additional Notes: Specialty phone number: [phone] documented in this encounter Plan of Treatment Not on file documented as of this encounter Visit Diagnoses Not on filedocumented in this encounter Care Teams [employer] Relationship Specialty Start Date End Date Amarilis Rincon MD [address] [place] [address] PCP - General Family Practice 02/11/24 Lexie Bose APRN PI[employer]A H[employer] ASSISTANT [address] [place] [address] Nurse Practitioner Cardiovascular Disease 07/01/22 Viviane Pacheco APRN [employer] ASSISTANT [address] [id number] Nurse Practitioner Cardiovascular Disease 07/16/22 Genevieve Puentes NP [address] [address] Nurse Practitioner Cardiology 07/25/22 Tin Mckenzie MD [address] [place] [address] Cardiovascular Disease 11/04/22 Mauricio New MD [address] [place] [address] Assigned Surgical Provider 10/19/24 Sheila Lara MD [address] [place] [address] Assigned Heart and Vascular Provider 10/19/24 documented as of this encounter
--- OUTSIDE RECORDS SUMMARY | 2024-12-04 22:32 | XMS_ITS | Clinical Summary ---
Author Organization [facility] Address [address] [place] [address] Care Team Providers Care Ferry Operator Name Role Phone Lexie Bose CUTTER GAS SCOUT Unavailable [phone] Viviane Pacheco CUTTER GAS SCOUT Unavailable [phone] Genevieve Puentes NP Unavailable [phone] Tin Mckenzie MD Unavailable [phone] Amarilis Rincon MD Primary Care Provider + [phone] Mauricio New MD Unavailable [phone] Sheila Lara MD Unavailable Allergies No known active allergies Medications atorvastatin (LIPITOR) 80 MG tablet Take 80 mg by mouth At Bedtime 03/19/20 22 Active metoprolol succinate ER (TOPROL XL) 200 MG 24 hr tablet Take 200 mg by mouth daily Active potassium chloride ER (KLOR-CON M) 20 MEQ CR tablet Take 40 mEq by mouth 2 times daily Active EMPAGLIFLOZIN PO Take 1 tablet by mouth daily Dose unknown Active bumetanide (BUMEX) 1 MG tablet Take 3 mg by mouth daily Active amoxicillin (AMOXIL) 500 MG capsule Take 2,000 mg by mouth as needed (prior to dental procedures) Active gabapentin (NEURONTIN) 300 MG capsule Take 600 mg by mouth 2 times daily Active albuterol (PROAIR HFA/PROVENTIL HFA/VENTOLIN HFA) 108 (90 Base) MCG/ACT inhaler Inhale 2 puffs into the lungs Every 4-6 hours PRN shortness of breath Active acetaminophen (TYLENOL) 500 MG tablet Take 1,000 mg by mouth every 8 hours as needed for mild pain Active insulin glargine (LANTUS PEN) 100 UNIT/ML penIndications:Lo ng term (current) use of insulin (H) Inject 25 Units Subcutaneous daily 15 mL 02/15/20 23 Active CALCIUM-VITAMIN D PO Take 1 tablet by mouth daily Active diltiazem ER COATED BEADS (CARDIZEM CD/CARTIA XT) 240 MG 24 hr capsule Take 240 mg by mouth daily Active nystatin (MYCOSTATIN) 363150 UNIT/GM external cream Apply topically 2 times daily as needed Active warfarin ANTICOAGULANT (COUMADIN) 2.5 MG tablet Take 1.5 tabs (3.75 mg) on Mondays and Fridays. Take 1 tab (2.5 mg) the rest of the week. QHS Active semaglutide (OZEMPIC) 2 MG/1.5ML SOPN pen Inject subcutaneously every 7 days Inject 0.25 mg subcutaneous weekly x 28 days then inject 0.5 mg subcutaneous weekly. 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 Knee pain 03/05/2005 Hyperlipidemia 09/10/2004 Resolved Problems Problem Noted Date Diagnosed Date Resolved Date CHF (congestive heart failure) 06/22/2022 02/10/2024 Encounters Date Type Department Care Team Description 12/01/2024 Telephone [facility] [address] [place] [phone] Sheila Lara MD 11/09/2024 Telephone [facility] [address] [place] [phone] None Appointment (Cancel 11/09 Hospital F/U) 11/02/2024 Telephone [facility] [address] [place] [phone] Candice Sanchez, RN Clinic Care Coordination - Post Hospital (Post discharge phone call) 11/01/2024 8:30 AM CDT - 11/01/2024 9:30 AM CDT Surgery [facility] [address] [phone] Sheila Lara MD Right Heart Catheterization 11/01/2024 5:53 AM CDT - 11/01/2024 10:35 AM CDT Hospital Encounter [facility] [address] [phone] Sheila Lara MD Acute decompensated heart failure (H) (Primary Dx); Cardiac pacemaker in situ; Atrial fibrillation with RVR (H); Congestive heart failure, unspecified HF chronicity, unspecified heart failure type (H) Discharge Disposition: Home or Self Care 10/31/2024 Telephone [facility] [address] [place] [phone] Gudelia Mancera, RN Pt. Information/instructi on 10/26/2024 Care Coordination [facility] [address] [place] [phone] Renée Bobby, ARIELLA Pt. Information/instructi on ([facility]HC prep) 10/07/2024 Telephone [place] [id number] [place] [phone] Sheila Lara MD Call Back (Medication Question ) 10/03/2024 1:00 PM CDT Office Visit [facility] Surgery [facility] [address] [place] [phone] Mauricio New MD Hip mass, left; Hip mass, right 10/03/2024 11:15 AM CDT Office Visit [facility] [address] [place] [phone] Sanjay Harrington MD Vakil, Kairav, MD Cardiac pacemaker in situ; Atrial fibrillation with RVR (H); Congestive heart failure, unspecified HF chronicity, unspecified heart failure type (H) 10/03/2024 Travel from Last 3 Months Family History Medical History Relation Comments No Known Problems Father No Known Problems Mother Relation Status Comments Father Mother Social History Tobacco Use Types Packs/Day Years Used Date Smoking Tobacco: Every Day Cigarettes Passive Smoke Exposure: Never Smokeless Tobacco: Never Tobacco Cessation:Counseling Given: Yes Alcohol Use Standard Drinks/Week Comments Not Currently [...] on file Sexual Orientation Not on file Last Filed Vital Signs Vital Sign Reading [...] Mass Index 54.39 11/01/2024 6:32 AM CDT Plan of Treatment Health Maintenance Due Date Last Done Comments ADVANCE CARE PLANNING 1950 ALT 1950 ANNUAL REVIEW OF HM ORDERS 1950 CT COLONOGRAPHY 1950 DEPRESSION ACTION PLAN 1950 DEXA 1950 DIABETIC FOOT EXAM 1950 EYE EXAM 1950 FLEX SIG 1950 HF ACTION PLAN 1950 LIPID 1950 MAMMO SCREENING 1950 MICROALBUMIN 1950 NICOTINE/TOBACCO CESSATION COUNSELING Q 1 YR 1950 PHQ-9 1950 sDNA (Cologuard) 1950 COLONOSCOPY 1960 RSV VACCINE (1 - Risk 60-74 years 1-dose series) 2010 FALL RISK ASSESSMENT 10/10/2015 COLORECTAL CANCER SCREENING 04/26/2018 FIT 04/26/2018 04/26/2017 LUNG CANCER SCREENING 01/26/2020 01/25/2019 MEDICARE ANNUAL WELLNESS VISIT 03/19/2023 03/19/2022, 01/31/2021 A1C 05/15/2023 02/12/2023, 06/22/2022 COVID-19 VACCINE ( season) 2024 04/08/2024, 06/05/2023, 03/19/2022, Additional history exists BMP 05/04/2025 11/01/2024, 01/27, 02/11/2024, Additional history exists CBC 11/01/2025 11/01/2024, 01/27, 02/11/2024, Additional history exists HEMOGLOBIN 11/01/2025 11/01/2024, 01/27, 02/11/2024, Additional history exists DTAP/TDAP/TD VACCINE (3 - Td or Tdap) 01/30/2030 01/31/2020, 03/07/2009, 07/04/2003 HEPATITIS C SCREENING Completed 10/06/2007 PNEUMOCOCCAL VACCINE 50+ YEARS Completed 04/27/2018, 08/11/2016, 07/04/2003 TSH W/FREE T4 REFLEX Completed 02/10/2024, 06/21/20 22 URINALYSIS Completed 02/10/2024, 02/11/2023 INFLUENZA VACCINE Completed 04/08/2024, , 03/19/2022, Additional history exists ZOSTER VACCINE Completed 04/18/2024, 09/2019, 07/08/2013 HPV VACCINE Aged Out No longer eligi ble based on patient's age to complete this topic MENINGITIS VACCINE Aged Out No longer eligible based on patient's age to complete this topic Medical Devices Implanted Type Area Education Program Manager Device Identifier Shelf Expiration Date Model / Serial / Lot Lead Ingevity+ Af Is1 7842 59cm - [id number] Implanted:Qty: 1 on 06/23/2022 at [facility] Leads [employer] 05/04/2024 [id number] / [id number] / [id number] Pacemaker Accolade Sr Mri - [id number] Implanted:Qty: 1 on 06/23/2022 at [facility] Pacemaker [employer] 10/17/2023 [id number] / [id number] / [id number] Procedures Procedure Name Priority Date/Time Associated Diagnosis Comments CV RIGHT HEART CATH MEASUREMENTS RECORDED Routine 11/01/2024 9:01 AM CDT Cardiac pacemaker in situ Atrial fibrillation with RVR (H) Congestive heart failure, unspecified HF chronicity, unspecified heart failure type (H) ISTAT GASES LACTATE VENOUS POCT Routine 11/01/2024 8:56 AM CDT EKG 12-LEAD, TRACING ONLY Routine 11/01/2024 7:11 AM CDT PARTIAL THROMBOPLASTIN TIME STAT 11/01/2024 7:01 AM CDT INR STAT 11/01/2024 7:01 AM CDT CBC WITH PLATELETS STAT 11/01/2024 7: 01 AM CDT BASIC METABOLIC PANEL STAT 11/01/2024 7:01 AM CDT EKG 12-LEAD COMPLETE W/READ - CLINICS Routine 10/03/2024 Atrial fibrillation with RVR (H) ROUTINE UA WITH MICROSCOPIC REFLEX TO CULTURE STAT 02/10/2024 3:23 PM CDT TSH WITH FREE T4 REFLEX STAT 02/10/2024 3:21 PM CDT HEMOGLOBIN A1C Routine 02/12/2023 8:34 AM CDT from Last 3 Months or Most Recently Relevant to Health Maintenance Results * CV RIGHT HEART CATH MEASUREMENTS [...] regurgitation from above. Patient was recently at [facility]. Underwent nearly 40 pounds of diuresis. [...] right internal jugular vein. Through that a [place]-Jeana catheter was inserted into the right heart and serial measurements were obtained in the pulmonary capillary wedge, pulmonary artery, right ventricle and right atrial positions. Pulmonary arterial saturations were obtained for [place] cardiac index calculation. [place] was pulled out and manual compression was done for hemostasis at the access site. No immediate complications. The attending bench assembly inspector was present and supervised all critical aspects the procedure. Recommendations Follow-up in heart failure clinic. us Sheila Lara MD CV CARDIAC CATH ORDERABLES Final Result * (ABNORMAL) iStat Gases (lactate) venous, POCT (11/01/2024 8:56 AM CDT) Lactic Acid POCT 0.9 0.7 - 2.0 [...] 8:59 AM CDT us Sheila Lara MD [facility] POCT Final Result LABORATORY POC [facility] [address] 1[address] floor, [address] [place] [phone] * EKG 12-lead, tracing only (11/01/2024 7:11 AM CDT) Systolic Blood Pressure mmHg RADIOLOGY RESULTS Diastolic Blood Pressure mmHg RADIOLOGY RESULTS Ventricular Rate 91 BPM RAD IOLOGY RESULTS Atrial Rate 227 BPM RADIOLOG Y RESULTS IL Interval ms RADIOLOG Y RESULTS QRS Duration 78 ms RADIOLO GY RESULTS QT 390 ms RADIOLOGY RESULTS QTc 479 ms RADIOLOGY RESULTS P [place] degrees RADIOLOGY RESULTS R AXIS 220 degrees RADIOLOGY RESULTS T [place] 50 degrees RADIOLOGY RESULTS Interpretation ECG Atrial [...] Edited Result - Final RADIOLOGY RESULTS * INR (11/01/2024 7:01 AM CDT) INR 1.15 0.85 - 1.15 11/01/2024 7:42 AM CDT LABORATORY PT 14.5 11.8 - 14.8 Seconds 11/01/2024 7:42 AM CDT LABORATORY Blood BLOOD SPECIMEN / Unknown Venipuncture / Unknown 11/01/2024 7:01 AM CDT 11/01/2024 7:13 AM CDT Sheila Lara MD LAB - BLOOD ORDERABLES Final Res ult Performing Organization Address City/[facility]/ZIP Co de Phone Number LABORATORY [facility] [address] floor, [address] [place] [address], [facility] [phone] * Partial thromboplastin time (11/01/2024 7:01 AM CDT) aPTT 28 22 - 38 Seconds 11/01/2024 8:12 AM CDT LABORATORY Blood BLOOD SPECIMEN / Unknown Venipuncture / Unknown 11/01/2024 7:01 AM CDT 11/01/2024 7:13 AM CDT us Sheila Lara MD LAB - BLOOD ORDERABLES Final Res ult Performing Organization Address City/[facility]/ZIP Co de Phone Number LABORATORY [facility] [address] floor, [address] [place] [address], [place] [phone] * (ABNORMAL) Basic metabolic panel (11/01/2024 7:01 AM CDT) Pathologist [facility] Sodium 139 135 - 145 mmol/L 11/01/2024 7:44 AM CDT LABORATORY Potassium 3.9 3.4 - 5.3 mmol/L 11/01/2024 7:44 AM CDT LABORATORY Chloride 95(L) 98 - 107 mmol/L 11/01/2024 7:44 AM CDT LABORATORY Carbon Dioxide (CO2) 30(H) 22 - 29 mmol/L 11/01/2024 7:44 AM CDT LABORATORY Anion Gap 14 7 - 15 mmol/L 11/01/2024 7:44 AM CDT LABORATORY Urea Nitrogen 33.6(H) 8.0 - 23.0 mg/dL 11/01/2024 7:44 AM CDT LABORATORY Creatinine 1.44(H) 0.51 - 0.95 mg/dL 11/01/2024 7:44 AM CDT LABORATORY GFR Estimate 38(L) >60 mL/min/1.7 3m2 11/01/2024 7:44 AM T LABORATORY Comment:eGFR calculated 2020 CKD-EPI equation. Calcium 8.7(L) 8.8 - 10.4 mg/dL 11/01/2024 7:44 AM T LABORATORY Glucose 239(H) 70 - 99 mg/dL 11/01/2024 7:44 AM T LABORATORY Blood BLOOD SPECIMEN / Unknown Venipuncture / Unknown 11/01/2024 7:01 AM CDT 11/01/2024 7:13 AM CDT us Sheila Lara MD LAB - BLOOD ORDERABLES Final Res ult LABORATORY [facility] [address], [address] [place] [address], [facility] [phone] * (ABNORMAL) CBC with platelets (11/01/2024 7:01 AM CDT) [facility] WBC Count 8.7 4.0 - 11.0 10e3/uL [...] - BLOOD ORDERABLES Final Res ult LABORATORY [facility] [address] floor, [address] [place] [address], [facility] [phone] * EKG 12-lead complete w/read - Clinics (performed today) (10/03/2024) us Sheila Lara MD ECG ORDERABLES Final Result * (ABNORMAL) UA with Microscopic reflex to Culture (02/10/2024 3:23 PM CDT) Color Urine Yellow Colorless, Straw, Light Yellow, Yellow 02/10/2024 3:54 PM CDT LABORATORY Appearance Urine Slightly Cloudy(A) Clear 02/10/2024 3:54 PM CDT LABORATORY Glucose Urine >=1000(A) Negative mg/dL 02/10/2024 3:54 PM CDT LABORATORY Bilirubin Urine Negative Negative 3:54 PM CDT LABORATORY Ketones Urine Negative Negative mg/dL 02/10/2024 3:54 PM CDT LABORATORY Specific [place] Urine 1.024 1.003 - 1.035 02/10/2024 3:54 PM CDT LABORATORY Blood Urine Trace(A) Negative 02/10/2024 3:54 PM CDT LABORATORY pH Urine 6.5 5.0 - 7.0 02/10/2024 3:54 PM CDT LABORATORY Protein Albumin Urine 10(A) Negative mg/dL 02/10/2024 3:54 PM CDT LABORATORY Urobilinogen Urine Normal Normal, 2.0 mg/dL 02/10/2024 3:54 PM CDT LABORATORY Nitrite Urine Positive(A) Negative 02/10/2024 3:54 PM CDT LABORATORY Leukocyte Esterase Urine Large(A) Negative 02/10/2024 3:54 PM CDT LABORATORY Bacteria Urine Few(A) None Seen /HPF 02/10/2024 3:54 PM CDT LABORATORY RBC Urine 3(H) <=2 /HPF 02/10/2024 3:54 PM CDT LABORATORY WBC Urine >182(H) <=5 /HPF 02/10/2024 3:54 PM CDT LABORATORY Squamous Epithelials Urine 1 <=1 /HPF 02/10/2024 3:54 PM CDT LABORATORY Urine MID-STREAM URINE SPECIMEN / Unknown Non-blood Collection / Unknown 02/10/2024 3:23 PM CDT 02/10/2024 3:34 PM CDT Narrative LABORATORY - 02/10/2024 3:54 PM CDT Urine Culture ordered based on laboratory criteria us Sera White MD LAB - URINE ORDERABLES Zulma albarado Result LABORATORY [facility] [address], [address] [place] [address], [facility] [phone] * TSH with free T4 reflex (02/10/2024 3:21 PM CDT) TSH 1.10 0.30 - 4.20 uIU/mL 02/10/2024 4:11 PM CDT LABORATORY Blood BLOOD SPECIMEN / Unknown Venipuncture / Unknown 02/10/2024 3:21 PM CDT 02/10/2024 3:29 PM CDT Sera White MD LAB - BLOOD ORDERABLES Zulma albarado Result LABORATORY [facility] [address], [address] [place] [address], [facility] [phone] * (ABNORMAL) Hemoglobin A1c (02/12/2023 8:34 AM CDT) Hemoglobin A1C 6.2(H) <5.7 % 02/12/2023 9:11 AM CDT LABORATORY Comment: Normal <5.7% Prediabetes 5.7-6.4% Diabetes 6.5% or higher Note: Adopted from ADA consensus guidelines. Blood STRUCTURE OF LEFT HAND / Unknown Venipuncture / Unknown 02/12/2023 8:34 AM CDT 02/12/2023 8:43 AM CDT Corona Irizarry MD, MD LAB - BLOOD ORDERABLES Geovany al Result LABORATORY [facility] [address] Lab (1st floor, no room number) [place] [address], [place] [phone] from Last 3 Months or Most Recently Relevant to Health Maintenance Insurance [facility] MEDICARE [facility] MEDICARE Advance Directives For more information, please contact: [phone] * Full Code (Latest Code Status on File) Date Activated Date Inactivated Comments 11/01/2024 9:15 AM 11/01/2024 12:39 PM All basic and advanced life-sustaining interventions are performed as appropriate Question Answer Comments Code status determined by: Discussion with patie nt/ legal decision maker * Full Code Date Activated Date Inactivated Comments 02/10/2024 8:13 PM 02/12/2024 6:04 PM All basic an d advanced life-sustaining interventions are performed as appropriate Question Answer Comments Code status determined by: Discussion with patie nt/ legal decision maker * No CPR- Do NOT Intubate Date Activated Date Inactivated Comments 02/14/2023 10:26 AM 02/10/2024 2:09 PM Question Answer Comments Code status determined by: Discussion with patie nt/ legal decision maker * No CPR- Do NOT Intubate Date Activated Date Inactivated Comments 02/11/2023 2:16 PM 02/14/2023 10:26 AM NO basic or advanced life-sustaining interventions are performed Question Answer Comments Code status determined by: Discussion with patie nt/ legal decision maker * Full Code Date Activated Date Inactivated Comments 06/22/2022 4:12 PM 06/26/2022 3:07 PM All basic and advanced life-sustaining interventions are performed as appropriate Question Answer Comments Code status determined by: Discussion with patie nt/ legal decision maker Care Teams Ferry Operator Relationship Specialty Start Date End Date Amarilis Rincon MD [address] [place], [place] [phone] PCP - General Family Practice 02/11/24 Lexie Bose APRN SCOUT [address] [place] [id number] Nurse Practitioner Cardiovascular Disease 07/01/22 Viviane Pacheco APRN SCOUT [address] [place] [phone] Nurse Practitioner Cardiovascular Disease 07/16/22 Genevieve Puentes NP [address] [id number] Nurse Practitioner Cardiology 07/25/22 Tin Mckenzie MD [address] [place] [id number] Cardiovascular Disease 11/04/22 Mauricio New MD [address] [place] [address] Assigned Surgical Provider 10/19/24 Sheila Lara MD [address] [place] [id number] Assigned Heart and Vascular Provider 10/19/24
--- NOTE | 2024-12-04 22:55 | CRLHL7_ITS ---
For Patients: As a result of the Century Cures Act, medical imaging exams and procedure reports are released immediately into your electronic medical record. You may view this report before your referring provider. If you have questions, please contact your health care provider. INDICATION: Cough, shortness of breath, wheezing.. TECHNIQUE: Chest 1 views. COMPARISON: August 24, 2024. FINDINGS: Cardiovascular and mediastinum: Stable cardiomegaly with vascular congestion. Unchanged left chest wall pacemaker device. Lungs and pleural spaces: Mild pulmonary edema. No sign of infiltrate or mass. No sign of significant pleural effusion. No pneumothorax. Bones and soft tissues: No significant findings. IMPRESSION: Stable cardiomegaly with vascular congestion and mild pulmonary edema. Dictated by Ld Dyer MD @ 12/05/2024 12:01:08 AM (Electronically Signed)
--- NOTE | 2024-12-04 22:57 | ED.GENADULT ---
HPI - General Adult General Chief complaint: Shortness of Breath/Dyspnea Stated complaint: Shortness of breath History of Present Illness HPI narrative: Patient brought in by EMS from home with recent shortness of breath and cough and worsening shortness of breath tonight. She was wheezy and borderline hypoxic per EMS with sats around 90%. Received a DuoNeb EN route with some improvement in her wheezing. Nurses report that she is breathing better now but they deliver on 2 L nasal cannula to keep her sats in the mid 90s. I ordered 1 additional neb as well as steroids. She also has a complex cardiac history including AFib, CHF. She also has a history diabetes, tobacco use. Although I am over my shift, I have ordered at the initial phase of her workup for my colleague because the ER is very busy tonight. I ordered chest x-ray to look for possible pneumonia or possible pulmonary edema. COVID/influenza/RSV PCR is ordered. Other labs including kidney function, CBC, blood cultures, INR, venous blood gas/lactic ordered. At this point patient is hemodynamically stable. EKG shows rate controlled AFib which is previously known. Please see medical record from my calling for for full details of the patient's history and physical. Related Data Home Medications ?Medication ?Instructions ?Recorded ?Confirmed acetaminophen 500 mg tablet 1,000 mg PO Q6H PRN 04/07/23 08/24/24 (Tylenol Extra Strength) albuterol sulfate 90 mcg/actuation 2 puff inhalation Q4H PRN dyspnea 04/07/23 08/24/24 aerosol inhaler atorvastatin 80 mg tablet 80 mg PO HS 04/07/23 08/24/24 bumetanide 1 mg tablet 3 mg PO DAILY 04/07/23 08/24/24 cholecalciferol (vitamin D3) 25 25 mcg PO DAILY 04/07/23 08/24/24 mcg (1,000 unit) capsule diltiazem HCl 240 mg 240 mg PO DAILY 04/07/23 08/24/24 capsule,extended release 24 hr insulin glargine 100 unit/mL (3 25 unit subcut HS 04/07/23 08/24/24 mL) subcutaneous pen (Lantus Solostar U-100 Insulin) metoprolol succinate 200 mg 200 mg PO DAILY 04/07/23 08/24/24 tablet,extended release 24 hr potassium chloride 20 mEq 40 meq PO BID 04/07/23 08/24/24 tablet,extended release warfarin 2.5 mg tablet 2.5 - 3.75 mg PO QPM 04/07/23 08/24/24 empagliflozin 25 mg tablet 25 mg PO DAILY 08/24/24 08/24/24 (Jardiance) fluconazole 150 mg tablet 150 mg PO DAILY PRN 08/24/24 08/24/24 gabapentin 300 mg capsule 600 mg PO BID 08/24/24 08/24/24 metolazone 2.5 mg tablet 2.5 mg PO DAILY PRN 08/24/24 08/24/24 nystatin 100,000 unit/gram topical 1 applic topical BID PRN 08/24/24 08/24/24 cream nystatin 100,000 unit/gram topical 1 applic topical QID PRN 08/24/24 08/24/24 powder pen needle, diabetic 29 gauge x 08/24/24 08/24/24 1/2 (BD Ultra-Fine Original Pen Needle) semaglutide 0.25 mg or 0.5 mg (2 0.25 mg subcut Q7D 08/24/24 08/24/24 mg/3 mL) subcutaneous pen injector (VGBio) Previous Rx's ?Medication ?Instructions ?Recorded furosemide 40 mg tablet 60 mg (1.5 x 40 mg) PO BID #90 tabs 08/29/24 nicotine 21 mg/24 hr daily 1 patch transdermal Q24H #7 ea 08/29/24 transdermal patch Allergies Allergy/AdvReac Type Severity Reaction Status Date / Time No Known Drug Allergies Allergy Verified 04/07/23 13:47 [facility] [place] [facility] History (Updated 09/06/24 @ 00:01 by Background Dalucretia) Smoking greater than 40 pack years ?F17.210 - Nicotine dependence, cigarettes, uncomplicated (ICD-10) Urinary incontinence ?R32 - Unspecified urinary incontinence (ICD-10) Chronic obstructive pulmonary disease ?J44.9 - Chronic obstructive pulmonary disease, unspecified (ICD-10) Physical deconditioning ?R53.81 - Other malaise (ICD-10) Physical debility ?R53.81 - Other malaise (ICD-10) Major depressive disorder ?F32.9 - Major depressive disorder, single episode, unspecified (ICD-10) Diabetic peripheral neuropathy associated with type 2 diabetes mellitus ?E11.42 - Type 2 diabetes mellitus with diabetic polyneuropathy (ICD-10) Chronic kidney disease, stage III (moderate) ?N18.30 - Chronic kidney disease, stage 3 unspecified (ICD-10) Migraine ?G43.909 - Migraine, unspecified, not intractable, without status migrainosus (ICD-10) Vitamin D deficiency ?E55.9 - Vitamin D deficiency, unspecified (ICD-10) History of rectal bleeding ?Z87.19 - Personal history of other diseases of the digestive system (ICD-10) Allergic rhinitis ?J30.9 - Allergic rhinitis, unspecified (ICD-10) Tobacco dependence ?F17.200 - Nicotine dependence, unspecified, uncomplicated (ICD-10) Morbid obesity with BMI of 50.0-59.9, adult ?E66.01 - Morbid (severe) obesity due to excess calories (ICD-10) ?Z68.43 - Body mass index [BMI] 50.0-59.9, adult (ICD-10) Chronic acquired lymphedema ?I89.0 - Lymphedema, not elsewhere classified (ICD-10) Obstructive sleep apnea on CPAP ?G47.33 - Obstructive sleep apnea (adult) (pediatric) (ICD-10) Anticoagulation goal of INR 2 to 3 ?Z51.81 - Encounter for therapeutic drug level monitoring (ICD-10) ?Z79.01 - senior living (current) use of anticoagulants (ICD-10) Chronic anticoagulation ?Z79.01 - senior living (current) use of anticoagulants (ICD-10) Paroxysmal atrial fibrillation ?I48.0 - Paroxysmal atrial fibrillation (ICD-10) History of tachycardia-bradycardia syndrome ?Z86.79 - Personal history of other diseases of the circulatory system (ICD-10) Pulmonary hypertension ?I27.20 - Pulmonary hypertension, unspecified (ICD-10) Heart failure with preserved ejection fraction ?I50.30 - Unspecified diastolic (congestive) heart failure (ICD-10) Chronic diastolic heart failure ?I50.32 - Chronic diastolic (congestive) heart failure (ICD-10) Acute hypoxic respiratory failure ?J96.01 - Acute respiratory failure with hypoxia (ICD-10) Insulin-requiring or dependent type II diabetes mellitus ?E11.9 - Type 2 diabetes mellitus without complications (ICD-10) ?Z79.4 - intermediate accountant (current) use of insulin (ICD-10) Surgical History H/O hernia repair ?Z98.890 - Other specified postprocedural states (ICD-10) ?Z87.19 - Personal history of other diseases of the digestive system (ICD-10) History of total abdominal hysterectomy and bilateral salpingo-oophorectomy ?Z90.710 - Acquired absence of both cervix and uterus (ICD-10) ?Z90.722 - Acquired absence of ovaries, bilateral (ICD-10) ?Z90.79 - Acquired absence of other genital organ(s) (ICD-10) History of total left knee replacement (TKR) ?Z96.652 - Presence of left artificial knee joint (ICD-10) History of total right knee replacement ?Z96.651 - Presence of right artificial knee joint (ICD-10) History of total left hip replacement ?Z96.642 - Presence of left artificial hip joint (ICD-10) History of total right hip replacement ?Z96.641 - Presence of right artificial hip joint (ICD-10) Family History Mother Cancer Social History (Updated 08/24/24 @ 17:35 by Lavelle Morales MD) Narrative: Lives alone. Receives extra help and support in her home due to underlying evolving physical debility and physically deconditioned state. Designates her cousin, Heather Walker, as her primary healthcare power of district attorney should that be required, . Secondary POA would be her brother, Elfego Parkinson. Requests DNR DNI resuscitation status in the event of cardiopulmonary demise. Smokes 1-1.5 pack of cigarettes a day for over 50 years. Does not drink alcohol. She gets around her home with an electric scooter. She is able to stand and walk holding on with a cane or holding onto zhao furniture counter tops. She reports that she thinks things are going well in her home situation. She has [facility] healthcare with Dr. Rincon and Jacquie H[facility] and nursing care frequently doing home visits. What is your current living situation?: I presently have a place to live Problems where you live: no known problems Problems where you live details: N/A In the past 12 months, utilities in danger of being shut off: no In past 12 months, lack of transportation kept you from medical appts, meetings, work, or getting things needed for daily living: no In the past 12 mos, have been you worried that your food would run out before you had money to buy more?: never true In the past 12 mos, the food you bought just didn't last and you didn't have money to buy more?: never true Highest level of school completed/degree received: some college, no degree Smoking Status: Current every day smoker What tobacco products do you use: cigarettes Smoking packs per day: 1 Smoking cigarettes per day: 20.0 Smoking quit date/years: >15 years ago Do you use any of these nicotine containing products: None How often do you have a drink containing alcohol: never How often do you have six or more drinks on one occasion: Never AUDIT-C Alcohol total score: 0 Non-prescribed substance use: denies use Caffeine: Yes How often does anyone, including family, friends and others, physically hurt you: never How often does anyone, including family, friends and others, insult or talk down to you: never How often does anyone, including family, friends and others, threaten you with harm: never How often does anyone, including family, friends and others, scream or curse at you: never service: No Discharge Plan Discharge Prescriptions: No Action atorvastatin 80 mg tablet 80 mg PO HS diltiazem HCl 240 mg capsule,extended release 24hr 240 mg PO DAILY metoprolol succinate 200 mg tablet extended release 24 hr 200 mg PO DAILY warfarin 2.5 mg tablet 2.5 - 3.75 mg PO QPM Rx Instructions: 3.75mg on , 2.5mg all other days bumetanide 1 mg tablet 3 mg PO DAILY albuterol sulfate 90 mcg/actuation HFA aerosol inhaler 2 puff INHALATION Q4H PRN (Reason: dyspnea) insulin glargine [Lantus Solostar U-100 Insulin] 100 unit/mL (3 mL) insulin pen 25 unit subcut HS acetaminophen [Tylenol Extra Strength] 500 mg tablet 1,000 mg PO Q6H PRN cholecalciferol (vitamin D3) 25 mcg (1,000 unit) capsule 25 mcg PO DAILY potassium chloride 20 mEq tablet extended release 40 meq PO BID Ozempic 0.25 mg or 0.5 mg (2 mg/3 mL) pen injector 0.25 mg SUBCUT Q7D metolazone 2.5 mg tablet 2.5 mg PO DAILY PRN fluconazole 150 mg tablet 150 mg PO DAILY PRN nystatin 100,000 unit/gram cream 1 applic topical BID PRN nystatin 100,000 unit/gram powder 1 applic topical QID PRN (DME) pen needle, diabetic [BD Ultra-Fine Orig Pen Needle] 29 gauge x 1/2 needle MISCELLANEOUS Patient Comments: [NO ORIGINAL SIG] Jardiance 25 mg tablet 25 mg PO DAILY gabapentin 300 mg capsule 600 mg PO BID furosemide 40 mg tablet 60 mg PO BID Qty: 90 0RF nicotine 21 mg/24 hr Patch 24 Hour 1 patch transdermal Q24H Qty: 7 0RF Follow Up/Referrals: Provider,Not a Local [Primary Care Provider, Family Practice]
[2024-12-04 23:38] LABS: PCR FLU A Negative PCR FLU A (Negative); PCR FLU B Negative PCR FLU B (Negative); PCR RSV Negative PCR RSV (Negative); SARS PCR* Negative SARS-CoV-2 (Negative)
[2024-12-04 23:41] LABS: HCO3 VBG 35 mmol/L (21-28); Lactate* 1.5 mmol/L (0.5-1.9); PCO2 VBG 59 mmHG (40-50); PO2 VBG < 30.1 mmHG (25-47); pH VBG 7.383 (7.32-7.43)
[2024-12-04 23:45] LABS: Basophils Absolute Auto 0.02 K/uL (0.00-0.30); Basophils Percent Auto 0.3 % (0.0-3.0); Eosinophils Absolute Auto 0.23 K/uL (0.00-0.50); Eosinophils Percent Auto 3.5 % (0.0-7.0); Hematocrit* 49.9 % (33.0-51.0); Hemoglobin* 16.4 gm/dL (12.0-16.0); Immature Granulocytes Abs Auto 0.08 K/uL (0.00-0.30); Immature Granulocytes Pct Auto 1.2 %; Lymphocytes Percent Auto 16.8 % (20-44); Mean Corpuscular HGB Conc 33 gm/dL (32-36); Mean Corpuscular Hemoglobin 32 pg (26-34); Mean Corpuscular Volume 96 fL (80-100); Monocytes Percent Auto 8.9 % (0.0-11.0); Neutrophils Absolute Auto 4.54 K/uL (1.7-7.0); Neutrophils Percent Auto 69.3 % (42.0-72.0); Platelet Count* 186 K/uL (140-440); RDW Coefficient of Variation % 15.4 % (11.5-15.5); White Blood Count* 6.55 K/uL (4.50-11.00)
[2024-12-04 23:46] LABS: Slide Review Reflex No
[2024-12-04 23:55] LABS: Chloride* 97 mmol/L (96-114); Sodium* 139 mmol/L (135-149)
[2024-12-04 23:58] LABS: Anion Gap 8 mEq/L (7-15); Blood Urea Nitrogen* 38 mg/dL (7-30); Calcium* 8.5 mg/dL (8.4-10.6); Carbon Dioxide* 34 mmol/L (20-32); Creatinine* 1.5 mg/dL (0.5-1.5); Estimated Glomerular Filt Rate 36 ml/min; Glucose* 251 mg/dL (60-115); INR 1.75 (0.91-1.10); Prothrombin Time 21.5 Seconds
[2024-12-05] VITALS (28 sets, daily range): BP systolic 101–139; BP diastolic 68–89; PULSE 69–109; RESP 16–34; TEMP 36.5–36.7; O2SAT 87–99
[2024-12-05] MEDS: ALBUTEROL SULFATE 2.5 MG/3 ML VIAL.NEB NEB (00:04)
[2024-12-05] MEDS: METHYLPREDNISOLONE SOD SUCC 62.5 MG/ML (125) 125 MG IVP (00:04)
[2024-12-05 00:08] LABS: NT Pro B Type NatriureticPept* 3250 pg/mL (See Note)
--- NOTE | 2024-12-05 01:01 | ED.GENADULT ---
HPI - General Adult General Chief complaint: Shortness of Breath/Dyspnea Stated complaint: Shortness of breath Time Seen by Provider: 12/04/24 23:13 History of Present Illness HPI narrative: pt here with SOB, has had cold symptoms for about a week, has COPD and still smoking, she was told by her home care nurse to get checked out, also has weeping legs, and got a blanket stuck to right leg about a week ago and has skin tear that looks red and warm to touch 74-year-old woman presenting to the emergency department via EMS after she had called for increasing shortness of breath. She has had some cold symptoms this last week but it just got much worse today. Underlying history of COPD, diabetes, paroxysmal atrial fibrillation, pulmonary hypertension with a echocardiogram showing normal LV size and thickness with EF of 55-60% in 2022, on diastolic heart failure. For oxygen saturations of around 90% was given a DuoNeb by EMS before arrival. Arrives on 2 L nasal cannula oxygenating 96%. Chronic lower extremity edema results and weeping sometimes she says. Week ago did have a skin tear on her right lower leg. She is not having chest pain. Related Data Home Medications ?Medication ?Instructions ?Recorded ?Confirmed acetaminophen 500 mg tablet 1,000 mg PO Q6H PRN 04/07/23 08/24/24 (Tylenol Extra Strength) albuterol sulfate 90 mcg/actuation 2 puff inhalation Q4H PRN dyspnea 04/07/23 08/24/24 aerosol inhaler atorvastatin 80 mg tablet 80 mg PO HS 04/07/23 08/24/24 bumetanide 1 mg tablet 3 mg PO DAILY 04/07/23 08/24/24 cholecalciferol (vitamin D3) 25 25 mcg PO DAILY 04/07/23 08/24/24 mcg (1,000 unit) capsule diltiazem HCl 240 mg 240 mg PO DAILY 04/07/23 08/24/24 capsule,extended release 24 hr insulin glargine 100 unit/mL (3 25 unit subcut HS 04/07/23 08/24/24 mL) subcutaneous pen (Lantus Solostar U-100 Insulin) metoprolol succinate 200 mg 200 mg PO DAILY 04/07/23 08/24/24 tablet,extended release 24 hr potassium chloride 20 mEq 40 meq PO BID 04/07/23 08/24/24 tablet,extended release warfarin 2.5 mg tablet 2.5 - 3.75 mg PO QPM 04/07/23 08/24/24 empagliflozin 25 mg tablet 25 mg PO DAILY 08/24/24 08/24/24 (Jardiance) fluconazole 150 mg tablet 150 mg PO DAILY PRN 08/24/24 08/24/24 gabapentin 300 mg capsule 600 mg PO BID 08/24/24 08/24/24 metolazone 2.5 mg tablet 2.5 mg PO DAILY PRN 08/24/24 08/24/24 nystatin 100,000 unit/gram topical 1 applic topical BID PRN 08/24/24 08/24/24 cream nystatin 100,000 unit/gram topical 1 applic topical QID PRN 08/24/24 08/24/24 powder pen needle, diabetic 29 gauge x 08/24/24 08/24/24/2 (BD Ultra-Fine Original Pen Needle) semaglutide 0.25 mg or 0.5 mg (2 0.25 mg subcut Q7D 08/24/24 08/24/24 mg/3 mL) subcutaneous pen injector (Ozempic) Previous Rx's ?Medication ?Instructions ?Recorded furosemide 40 mg tablet 60 mg (1.5 x 40 mg) PO BID #90 tabs 08/29/24 nicotine 21 mg/24 hr daily 1 patch transdermal Q24H #7 ea 08/29/24 transdermal patch Allergies Allergy/AdvReac Type Severity Reaction Status Date / Time No Known Drug Allergies Allergy Verified 04/07/23 13:47 Review of Systems Status of ROS: Reports: 6 or more systems reviewed and unremarkable except as noted in History and below [facility] Medical History Smoking greater than 40 pack years ?F17.210 - Nicotine dependence, cigarettes, uncomplicated (ICD-10) Urinary incontinence ?R32 - Unspecified urinary incontinence (ICD-10) Chronic obstructive pulmonary disease ?J44.9 - Chronic obstructive pulmonary disease, unspecified (ICD-10) Physical deconditioning ?R53.81 - Other malaise (ICD-10) Physical debility ?R53.81 - Other malaise (ICD-10) Major depressive disorder ?F32.9 - Major depressive disorder, single episode, unspecified (ICD-10) Diabetic peripheral neuropathy associated with type 2 diabetes mellitus ?E11.42 - Type 2 diabetes mellitus with diabetic polyneuropathy (ICD-10) Chronic kidney disease, stage III (moderate) ?N18.30 - Chronic kidney disease, stage 3 unspecified (ICD-10) Migraine ?G43.909 - Migraine, unspecified, not intractable, without status migrainosus (ICD-10) Vitamin D deficiency ?E55.9 - Vitamin D deficiency, unspecified (ICD-10) History of rectal bleeding ?Z87.19 - Personal history of other diseases of the digestive system (ICD-10) Allergic rhinitis ?J30.9 - Allergic rhinitis, unspecified (ICD-10) Tobacco dependence ?F17.200 - Nicotine dependence, unspecified, uncomplicated (ICD-10) Morbid obesity with BMI of 50.0-59.9, adult ?E66.01 - Morbid (severe) obesity due to excess calories (ICD-10) ?Z68.43 - Body mass index [BMI] 50.0-59.9, adult (ICD-10) Chronic acquired lymphedema ?I89.0 - Lymphedema, not elsewhere classified (ICD-10) Obstructive sleep apnea on CPAP ?G47.33 - Obstructive sleep apnea (adult) (pediatric) (ICD-10) Anticoagulation goal of INR 2 to 3 ?Z51.81 - Encounter for therapeutic drug level monitoring (ICD-10) ?Z79.01 - [facility] (current) use of anticoagulants (ICD-10) Chronic anticoagulation ?Z79.01 - buttermilk drier operator (current) use of anticoagulants (ICD-10) Paroxysmal atrial fibrillation ?I48.0 - Paroxysmal atrial fibrillation (ICD-10) History of tachycardia-bradycardia syndrome ?Z86.79 - Personal history of other diseases of the circulatory system (ICD-10) Pulmonary hypertension ?I27.20 - Pulmonary hypertension, unspecified (ICD-10) Heart failure with preserved ejection fraction ?I50.30 - Unspecified diastolic (congestive) heart failure (ICD-10) Chronic diastolic heart failure ?I50.32 - Chronic diastolic (congestive) heart failure (ICD-10) Acute hypoxic respiratory failure ?J96.01 - Acute respiratory failure with hypoxia (ICD-10) Insulin-requiring or dependent type II diabetes mellitus ?E11.9 - Type 2 diabetes mellitus without complications (ICD-10) ?Z79.4 - [facility] (current) use of insulin (ICD-10) Surgical History H/O hernia repair ?Z98.890 - Other specified postprocedural states (ICD-10) ?Z87.19 - Personal history of other diseases of the digestive system (ICD-10) History of total abdominal hysterectomy and bilateral salpingo-oophorectomy ?Z90.710 - Acquired absence of both cervix and uterus (ICD-10) ?Z90.722 - Acquired absence of ovaries, bilateral (ICD-10) ?Z90.79 - Acquired absence of other genital organ(s) (ICD-10) History of total left knee replacement (TKR) ?Z96.652 - Presence of left artificial knee joint (ICD-10) History of total right knee replacement ?Z96.651 - Presence of right artificial knee joint (ICD-10) History of total left hip replacement ?Z96.642 - Presence of left artificial hip joint (ICD-10) History of total right hip replacement ?Z96.641 - Presence of right artificial hip joint (ICD-10) Family History Mother Cancer Social History Narrative: Lives alone. Receives extra help and support in her home due to underlying evolving physical debility and physically deconditioned state. Designates her cousin, Heather Walker, as her primary healthcare power of energy attorney should that be required, . Secondary POA would be her brother, Elfego Parkinson. Requests DNR DNI resuscitation status in the event of cardiopulmonary demise. Smokes 1-1.5 pack of cigarettes a day for over 50 years. Does not drink alcohol. She gets around her home with an electric scooter. She is able to stand and walk holding on with a cane or holding onto zhao furniture counter tops. She reports that she thinks things are going well in her home situation. She has [facility] healthcare with Dr. Rincon and Jacquie Haley [facility] and nursing care frequently doing home visits. What is your current living situation?: I presently have a place to live Problems where you live: no known problems Problems where you live details: N/A In the past 12 months, utilities in danger of being shut off: no In past 12 months, lack of transportation kept you from medical appts, meetings, work, or getting things needed for daily living: no In the past 12 mos, have been you worried that your food would run out before you had money to buy more?: never true In the past 12 mos, the food you bought just didn't last and you didn't have money to buy more?: never true Highest level of school completed/degree received: some college, no degree Smoking Status: Current every day smoker What tobacco products do you use: cigarettes Smoking packs per day: 1 Smoking cigarettes per day: 20.0 Smoking quit date/years: >15 years ago Do you use any of these nicotine containing products: None How often do you have a drink containing alcohol: never How often do you have six or more drinks on one occasion: Never AUDIT-C Alcohol total score: 0 Non-prescribed substance use: denies use Caffeine: Yes How often does anyone, including family, friends and others, physically hurt you: never How often does anyone, including family, friends and others, insult or talk down to you: never How often does anyone, including family, friends and others, threaten you with harm: never How often does anyone, including family, friends and others, scream or curse at you: never service: No Exam Narrative: Exam Narrative: Pleasant. Appears rather fatigued. Diffuse end-expiratory wheezing and crepitus in her lungs. She is mildly labored in mildly tachypneic. Sounds congested in the nasopharynx. Heart is in an irregularly irregular rhythm. Distant. Abdomen is soft and nontender. Obese. She is well-perfused peripherally. Lower extremities though with marked nonpitting edema. She is not weeping currently. There is a triangular maximal dimension 2.5 cm skin tear without purulence at the anterior right novak. Surrounding this broadly is mild erythema but that is bilaterally but with a little more calor perhaps on the right novak than the left. Const: Vital Signs, click to edit/add: Vital Signs - 24 hr 12/04/24 22:51 12/04/24 22:53 12/04/24 23:00 Temperature 98.2 F Pulse Rate 87 85 Pulse Rate [Pulse Oximeter] 83 Respiratory Rate 22 22 20 Blood Pressure Blood Pressure [Ri ght Forearm] 102/74 Pulse Oximetry 98 89 97 Oxygen Delivery Me thod Room Air 12/04/24 23:15 12/04/24 23:17 12/04/24 23:31 Temperature Pulse Rate 79 89 Pulse Rate [Pulse Oximeter] Respiratory Rate 22 22 20 Blood Pressure 112/65 114/71 Blood Pressure [Ri ght Forearm] Pulse Oximetry 91 97 Oxygen Delivery Me thod 12/04/24 23:33 12/04/24 23:45 12/05/24 00:00 Temperature Pulse Rate 83 80 76 Pulse Rate [Pulse Oximeter] Respiratory Rate 22 22 20 Blood Pressure Blood Pressure [Ri ght Forearm] Pulse Oximetry 97 97 93 Oxygen Delivery Me thod 12/05/24 00:10 12/05/24 00:15 Temperature Pulse Rate 91 84 Pulse Rate [Pulse Oximeter] Respiratory Rate 18 20 Blood Pressure 113/77 Blood Pressure [Ri ght Forearm] Pulse Oximetry 96 96 Oxygen Delivery Me thod Documenting provider has reviewed patient's vital signs: yes Course Vital Signs Vital signs: Initial Vital Signs Pulse Rate 87 12/04/24 22:51 Respiratory Rate 22 12/04/24 22:51 Pulse Oximetry 98 12/04/24 22:51 Vital Signs Pulse Rate 87 12/04/24 22:51 Respiratory Rate 22 12/04/24 22:51 Pulse Oximetry 98 12/04/24 22:51 Temperature 98.2 F 12/04/24 22:53 Pulse Rate 84 12/05/24 00:15 Respiratory Rate 20 12/05/24 00:15 Blood Pressure 113/77 12/05/24 00:10 Pulse Oximetry 96 12/05/24 00:15 Oxygen Delivery Method Room Air 12/04/24 22:53 Medications Administered Medications: Generic Name Dose Route Start Last Admin Trade Name Freq PRN Reason Stop Dose Admin Albuterol/Ipratropium 1 neb 12/04/24 22:54 12/05/24 01:05 Iprat-Albut 0.5-2.5 Mg/3 Ml Neb IH 1 neb Q2H PRN Administration Furosemide 40 mg 12/05/24 01:06 12/05/24 01:11 Furosemide 10 Mg/Ml Inj IVP 12/05/24 01:07 40 mg ONCE ONE Administration Discontinued Medications Generic Name Dose Route Start Last Admin Trade Name Jose PRN Reason Stop Dose Admin Albuterol 2.5 mg 12/04/24 23:39 12/05/24 00:04 Albuterol Sulfate 2.5 Mg/3 Ml Vial.Neb NEB 12/04/24 23:40 2.5 mg ONCE ONE Administration Methylprednisolone Sodium Succinate 125 mg 12/04/24 22:54 12/05/24 00:04 Methylprednisolone Sod Succ 62.5 Mg/Ml (125) IVP 12/04/24 22:55 125 mg ONCE ONE Administration Medical Decision Making MDM Narrative Medical decision making narrative: At this point I would presume exacerbation of COPD reactive airway in the setting of a URI. May also have had an exacerbation of heart failure. Will also evaluate for indication of cardiac injury. Have ordered for more nebulizations starting with an albuterol neb. has also been ordered for Solu-Medrol. With COPD will need to use caution with oxygen support in addition does have obstructive sleep apnea. Chest x-ray independently reviewed by me looks to show cardiomegaly and vascular congestion consistent with pulmonary edema. White count is not elevated. VBG shows some mild CO2 retention. INDICATION: Cough, shortness of breath, wheezing.. TECHNIQUE: Chest 1 views. COMPARISON: August 24, 2024. FINDINGS: Cardiovascular and mediastinum: Stable cardiomegaly with vascular congestion. Unchanged left chest wall pacemaker device. Lungs and pleural spaces: Mild pulmonary edema. No sign of infiltrate or mass. No sign of significant pleural effusion. No pneumothorax. Bones and soft tissues: No significant findings. IMPRESSION: Stable cardiomegaly with vascular congestion and mild pulmonary edema. Trial off oxygen results in oxygen saturations going to 88%. She is quite fatigued in general I would say. I think will have a hard time managing at home in the short term. Does have some degree of home health. On reauscultation is improved with certainly less wheeze. Slightly subtherapeutic on her INR. I am not convinced there is a cellulitis but might be prudent to use antibiotics in this case. ProBNP at 3250. I have written for 40 mg of IV Lasix. Anticipating admission for respiratory failure and reactive airway exacerbation Medical Records Medical records reviewed: Yes I reviewed the patient's medical records Lab Data Lab results reviewed: Yes I reviewed the patient's lab results Labs: Lab Results 12/04/24 Range/Units 00:16 WBC 6.55 (4.50-11.00) K/uL RBC 5.20 (4.00-5.20) m/uL Hgb 16.4 H (12.0-16.0) gm/dL Hct 49.9 (33.0-51.0) % MCV 96 (80-100) fL MCH 32 (26-34) pg MCHC 33 (32-36) gm/dL RDW Coeff of Aby 15.4 (11.5-15.5) % Plt Count 186 (140-440) K/uL Neut % (Auto) 69.3 (42.0-72.0) % Lymph % (Auto) 16.8 L (20-44) % Spalding % (Auto) 8.9 (0.0-11.0) % Eos % (Auto) 3.5 (0.0-7.0) % Baso % (Auto) 0.3 (0.0-3.0) % Neut # (Auto) 4.54 (1.7-7.0) K/uL Lymph # (Auto) 1.10 (0.90-2.90) K/uL [place] # (Auto) 0.60 (0.00-0.90) K/UL Eos # (Auto) 0.23 (0.00-0.50) K/uL Baso # (Auto) 0.02 (0.00-0.30) K/uL Abs Immat Gran (auto) 0.08 (0.00-0.30) K/uL Imm/Tot Granulo (auto) 1.2 % INR 1.75 H (0.91-1.10) VBG pH 7.383 (7.32-7.43) VBG pCO2 59 H (40-50) mmHG VBG pO2 < 30.1 (25-47) mmHG VBG HCO3 35 H (21-28) mmol/L Sodium 139 (135-149) mmol/L Potassium 4.0 (3.6-5.1) mmol/L Chloride 97 (96-114) mmol/L Carbon Dioxide 34 H (20-32) mmol/L Anion Gap 8 (7-15) mEq/L BUN 38 H (7-30) mg/dL Creatinine 1.5 (0.5-1.5) mg/dL Estimated Creat Clear 30.80 Estimated GFR 36 ml/min Glucose 251 H (60-115) mg/dL Lactate 1.5 (0.5-1.9) mmol/L Calcium 8.5 (8.4-10.6) mg/dL NT-Pro-B Natriuret Pep 3250 H (See Note) pg/mL SARS-CoV-2 (PCR) Negative SARS-CoV-2 (Negative) Influenza Type A (PCR) Negative PCR FLU A (Negative) Influenza Type B (PCR) Negative PCR FLU B (Negative) RSV (PCR) Negative PCR RSV (Negative) POC Troponin I 0.00 L (0.01-0.04) ng/ml Discharge Plan Discharge Clinical Impression: Respiratory failure, COPD exacerbation, Skin tear CHF exacerbation Qualifiers: Heart failure type: unspecified Qualified Code(s): I50.9 - Heart failure, unspecified Patient Disposition: Admitted As Observation Condition: Improved
[2024-12-05] MEDS: IPRAT-ALBUT 0.5-2.5 MG/3 ML NEB 1 NEB IH ×5 (01:05→22:10)
[2024-12-05] MEDS: FUROSEMIDE 10 MG/ML inj 40 MG IVP ×3 (01:11→22:10)
[2024-12-05] MEDS: cefTRIAXone 1 GM in 0.9 % SODIUM CHLORIDE Mini-bag 100 ML IVPB (02:28)
--- NOTE | 2024-12-05 04:58 | W.PM.TELEH&P ---
Telehealth- H&P: HPI History of Present Illness Date Seen: 12/05/24 Chief complaint: Shortness of breath Narrative: Sydnie Parkinson is seen as an Interactive Telehealth visit. Sydnie Parkinson is a 74 year old With past medical history significant for nicotine dependence, COPD, A-fib on Coumadin, Cardizem and metoprolol, history of right-sided heart failure with preserved EF, on diuretics and as needed metolazone, insulin-dependent diabetes with neuropathy presented emergency department with 1 week history of worsening shortness of breath and cough. Patient reports she has been having worsening cough and shortness of breath over the last 1 week. She has not checked her temperature however does report chills at home. She denies any chest pain, abdominal pain, nausea vomiting or diarrhea. Patient denies any worsening lower extremity edema. Denies any weight gain. Patient was found to be hypoxic and was placed on 2 L oxygen. Blood pressure has been in the low 100 range. Pulse has been between 70-80. She is mildly tachypneic. 93 to 5% on 2 L oxygen. Workup in the emergency department showed no significant findings on CBC, INR is 1.75, blood gas showed pH of 7.38, pCO2 59, sodium 139, potassium 4.0, chloride 97, CO2 34, anion gap 8, BUN 38, creatinine 1.5, glucose 251, lactate 1.5, calcium 8.5, proBNP 3250. Prior BNP was 3370. Respiratory panel is negative for SARS-CoV-2, influenza A, B, RSV. Chest x-ray showed stable cardiomegaly with vascular congestion and mild pulmonary edema. In the emergency department patient was given breathing treatment, Solu-Medrol 125 mg IV, Lasix 40 mg IV. Patient symptoms have improved however she is still tachypneic and significantly wheezy. Review of Systems Narrative: Complete ROS was performed, pertinent positives and negatives per HPI. [facility] Medical History Smoking greater than 40 pack years ?F17.210 - Nicotine dependence, cigarettes, uncomplicated (ICD-10) Urinary incontinence ?R32 - Unspecified urinary incontinence (ICD-10) Chronic obstructive pulmonary disease ?J44.9 - Chronic obstructive pulmonary disease, unspecified (ICD-10) Physical deconditioning ?R53.81 - Other malaise (ICD-10) Physical debility ?R53.81 - Other malaise (ICD-10) Major depressive disorder ?F32.9 - Major depressive disorder, single episode, unspecified (ICD-10) Diabetic peripheral neuropathy associated with type 2 diabetes mellitus ?E11.42 - Type 2 diabetes mellitus with diabetic polyneuropathy (ICD-10) Chronic kidney disease, stage III (moderate) ?N18.30 - Chronic kidney disease, stage 3 unspecified (ICD-10) Migraine ?G43.909 - Migraine, unspecified, not intractable, without status migrainosus (ICD-10) Vitamin D deficiency ?E55.9 - Vitamin D deficiency, unspecified (ICD-10) History of rectal bleeding ?Z87.19 - Personal history of other diseases of the digestive system (ICD-10) Allergic rhinitis ?J30.9 - Allergic rhinitis, unspecified (ICD-10) Tobacco dependence ?F17.200 - Nicotine dependence, unspecified, uncomplicated (ICD-10) Morbid obesity with BMI of 50.0-59.9, adult ?E66.01 - Morbid (severe) obesity due to excess calories (ICD-10) ?Z68.43 - Body mass index [BMI] 50.0-59.9, adult (ICD-10) Chronic acquired lymphedema ?I89.0 - Lymphedema, not elsewhere classified (ICD-10) Obstructive sleep apnea on CPAP ?G47.33 - Obstructive sleep apnea (adult) (pediatric) (ICD-10) Anticoagulation goal of INR 2 to 3 ?Z51.81 - Encounter for therapeutic drug level monitoring (ICD-10) ?Z79.01 - assisted (current) use of anticoagulants (ICD-10) Chronic anticoagulation ?Z79.01 - truck terminal manager (current) use of anticoagulants (ICD-10) Paroxysmal atrial fibrillation ?I48.0 - Paroxysmal atrial fibrillation (ICD-10) History of tachycardia-bradycardia syndrome ?Z86.79 - Personal history of other diseases of the circulatory system (ICD-10) Pulmonary hypertension ?I27.20 - Pulmonary hypertension, unspecified (ICD-10) Heart failure with preserved ejection fraction ?I50.30 - Unspecified diastolic (congestive) heart failure (ICD-10) Chronic diastolic heart failure ?I50.32 - Chronic diastolic (congestive) heart failure (ICD-10) Acute hypoxic respiratory failure ?J96.01 - Acute respiratory failure with hypoxia (ICD-10) Insulin-requiring or dependent type II diabetes mellitus ?E11.9 - Type 2 diabetes mellitus without complications (ICD-10) ?Z79.4 - assisted (current) use of insulin (ICD-10) Surgical History H/O hernia repair ?Z98.890 - Other specified postprocedural states (ICD-10) ?Z87.19 - Personal history of other diseases of the digestive system (ICD-10) History of total abdominal hysterectomy and bilateral salpingo-oophorectomy ?Z90.710 - Acquired absence of both cervix and uterus (ICD-10) ?Z90.722 - Acquired absence of ovaries, bilateral (ICD-10) ?Z90.79 - Acquired absence of other genital organ(s) (ICD-10) History of total left knee replacement (TKR) ?Z96.652 - Presence of left artificial knee joint (ICD-10) History of total right knee replacement ?Z96.651 - Presence of right artificial knee joint (ICD-10) History of total left hip replacement ?Z96.642 - Presence of left artificial hip joint (ICD-10) History of total right hip replacement ?Z96.641 - Presence of right artificial hip joint (ICD-10) Family History Mother Cancer Social History Narrative: Lives alone. Receives extra help and support in her home due to underlying evolving physical debility and physically deconditioned state. Designates her cousin, Heather Walker, as her primary healthcare power of patent attorney should that be required, . Secondary POA would be her brother, Elfego Parkinson. Requests DNR DNI resuscitation status in the event of cardiopulmonary demise. Smokes 1-1.5 pack of cigarettes a day for over 50 years. Does not drink alcohol. She gets around her home with an electric scooter. She is able to stand and walk holding on with a cane or holding onto zhao furniture counter tops. She reports that she thinks things are going well in her home situation. She has [facility] home healthcare with Dr. Rincon and [facility] and nursing care frequently doing home visits. What is your current living situation?: I presently have a place to live Problems where you live: no known problems Problems where you live details: n/a In the past 12 months, utilities in danger of being shut off: no In past 12 months, lack of transportation kept you from medical appts, meetings, work, or getting things needed for daily living: yes In the past 12 mos, have been you worried that your food would run out before you had money to buy more?: never true In the past 12 mos, the food you bought just didn't last and you didn't have money to buy more?: never true Highest level of school completed/degree received: some college, no degree Smoking Status: Current every day smoker What tobacco products do you use: cigarettes Smoking packs per day: 1 Smoking cigarettes per day: 20.0 Smoking quit date/years: >15 years ago Do you use any of these nicotine containing products: None How often do you have a drink containing alcohol: never How often do you have six or more drinks on one occasion: Never AUDIT-C Alcohol total score: 0 Non-prescribed substance use: denies use Caffeine: Yes How often does anyone, including family, friends and others, physically hurt you: never How often does anyone, including family, friends and others, insult or talk down to you: never How often does anyone, including family, friends and others, threaten you with harm: never How often does anyone, including family, friends and others, scream or curse at you: never service: No Health Related Social Needs: transportation insecurity (Z59.82) Meds Home Medications and Allergies Home Medications ?Medication ?Instructions ?Recorded ?Confirmed ?Type acetaminophen 500 mg tablet 1,000 mg PO Q6H PRN 04/07/23 08/24/24 History (Tylenol Extra Strength) albuterol sulfate 90 mcg/actuation 2 puff inhalation Q4H PRN dyspnea 04/07/23 08/24/24 History aerosol inhaler atorvastatin 80 mg tablet 80 mg PO HS 04/07/23 08/24/24 History bumetanide 1 mg tablet 3 mg PO DAILY 04/07/23 08/24/24 History cholecalciferol (vitamin D3) 25 25 mcg PO DAILY 04/07/23 08/24/24 History mcg (1,000 unit) capsule diltiazem HCl 240 mg 240 mg PO DAILY 04/07/23 08/24/24 History capsule,extended release 24 hr insulin glargine 100 unit/mL (3 25 unit subcut HS 04/07/23 08/24/24 History mL) subcutaneous pen (Lantus Solostar U-100 Insulin) metoprolol succinate 200 mg 200 mg PO DAILY 04/07/23 08/24/24 History tablet,extended release 24 hr potassium chloride 20 mEq 40 meq PO BID 04/07/23 08/24/24 History tablet,extended release warfarin 2.5 mg tablet 2.5 - 3.75 mg PO QPM 04/07/23 08/24/24 History empagliflozin 25 mg tablet 25 mg PO DAILY 08/24/24 08/24/24 History (Jardiance) fluconazole 150 mg tablet 150 mg PO DAILY PRN 08/24/24 08/24/24 History gabapentin 300 mg capsule 600 mg PO BID 08/24/24 08/24/24 History metolazone 2.5 mg tablet 2.5 mg PO DAILY PRN 08/24/24 08/24/24 History nystatin 100,000 unit/gram topical 1 applic topical BID PRN 08/24/24 08/24/24 History cream nystatin 100,000 unit/gram topical 1 applic topical QID PRN 08/24/24 08/24/24 History powder pen needle, diabetic 29 gauge x 08/24/24 08/24/24 History 1/2 (BD Ultra-Fine Original Pen Needle) semaglutide 0.25 mg or 0.5 mg (2 0.25 mg subcut Q7D 08/24/24 08/24/24 History mg/3 mL) subcutaneous pen injector (Ozempic) furosemide 40 mg tablet 60 mg (1.5 x 40 mg) PO BID #90 tabs 08/29/24 Rx nicotine 21 mg/24 hr daily 1 patch transdermal Q24H #7 ea 08/29/24 Rx transdermal patch Allergies Allergy/AdvReac Type Severity Reaction Status Date / Time No Known Drug Allergies Allergy Verified 04/07/23 13:47 Exam Narrative Exam Narrative: Physical Exam GENERAL: ?vital signs reviewed, MIld tachypneic, no accessory muscle use. Able to talk in full sentences. HEENT: pupils are equal round and reactive to light, dry oral mucosa NECK: Supple HEART: irregular LUNGS: + diffuse wheezing, + mild rhales/rhonchi ABDOMEN: Observation from nurse assisted exam, abdomen appears soft, nontender, and nondistended with Positive bowel sounds noted. EXTREMITIES: Strength and sensation is observed to be grossly within normal limits in the upper and lower extremities.? + right lower leg skin tear with warmth and redness and tenderness on palpation. SKIN:? Observed warm and dry with color normal Const Vital Signs, click to edit/add: Vital Signs - 24 hr 12/04/24 22:51 12/04/24 22:53 12/04/24 23:00 Temperature 98.2 F Pulse Rate 87 85 Pulse Rate [Pulse Oximeter] 83 Respiratory Rate 22 22 20 Blood Pressure Blood Pressure [Right Arm] Blood Pressure [Right Forearm] 102/74 Pulse Oximetry 98 89 97 Oxygen Delivery Method Room Air Oxygen Flow Rate 12/04/24 23:15 12/04/24 23:17 12/04/24 23:31 Temperature Pulse Rate 79 89 Pulse Rate [Pulse Oximeter] Respiratory Rate 22 22 20 Blood Pressure 112/65 114/71 Blood Pressure [Right Arm] Blood Pressure [Right Forearm] Pulse Oximetry 91 97 Oxygen Delivery Method Oxygen Flow Rate 12/04/24 23:33 12/04/24 23:45 12/05/24 00:00 Temperature Pulse Rate 83 80 76 Pulse Rate [Pulse Oximeter] Respiratory Rate 22 22 20 Blood Pressure Blood Pressure [Right Arm] Blood Pressure [Right Forearm] Pulse Oximetry 97 97 93 Oxygen Delivery Method Oxygen Flow Rate 12/05/24 00:10 12/05/24 00:15 12/05/24 00:30 Temperature Pulse Rate 91 84 69 Pulse Rate [Pulse Oximeter] Respiratory Rate 18 20 Blood Pressure 113/77 Blood Pressure [Right Arm] Blood Pressure [Right Forearm] Pulse Oximetry 96 96 96 Oxygen Delivery Method Oxygen Flow Rate 12/05/24 00:31 12/05/24 00:45 12/05/24 01:00 Temperature Pulse Rate 78 83 85 Pulse Rate [Pulse Oximeter] Respiratory Rate 23 31 H Blood Pressure 111/68 Blood Pressure [Right Arm] Blood Pressure [Right Forearm] Pulse Oximetry 97 92 95 Oxygen Delivery Method Oxygen Flow Rate 12/05/24 01:01 12/05/24 01:01 12/05/24 01:01 Temperature Pulse Rate 89 89 89 Pulse Rate [Pulse Oximeter] Respiratory Rate 16 16 16 Blood Pressure 110/89 110/89 110/89 Blood Pressure [Right Arm] Blood Pressure [Right Forearm] Pulse Oximetry 88 88 88 Oxygen Delivery Method Oxygen Flow Rate 12/05/24 01:01 12/05/24 01:15 12/05/24 01:30 Temperature Pulse Rate 89 76 80 Pulse Rate [Pulse Oximeter] Respiratory Rate 16 34 H 16 Blood Pressure 110/89 Blood Pressure [Right Arm] Blood Pressure [Right Forearm] Pulse Oximetry 88 87 L 98 Oxygen Delivery Method Oxygen Flow Rate 12/05/24 01:31 12/05/24 01:45 12/05/24 02:00 Temperature Pulse Rate 76 81 75 Pulse Rate [Pulse Oximeter] Respiratory Rate 17 19 18 Blood Pressure 104/71 Blood Pressure [Right Arm] Blood Pressure [Right Forearm] Pulse Oximetry 99 98 97 Oxygen Delivery Method Oxygen Flow Rate 12/05/24 02:01 12/05/24 02:15 12/05/24 02:30 Temperature 98.1 F Pulse Rate 79 83 Pulse Rate [Pulse Oximeter] 83 Respiratory Rate 21 20 21 Blood Pressure 101/71 Blood Pressure [Right Arm] 102/70 Blood Pressure [Right Forearm] Pulse Oximetry 97 98 92 Oxygen Delivery Method Nasal Cannula Oxygen Flow Rate 2 12/05/24 03:29 Temperature Pulse Rate Pulse Rate [Pulse Oximeter] Respiratory Rate Blood Pressure Blood Pressure [Right Arm] Blood Pressure [Right Forearm] Pulse Oximetry 93 Oxygen Delivery Method Nasal Cannula Oxygen Flow Rate 2 Hospitalist - H&P: Result Labs Labs: Short CBC 12/04/24 Range/Units 00:16 WBC 6.55 (4.50-11.00) K/uL Hgb 16.4 H (12.0-16.0) gm/dL Hct 49.9 (33.0-51.0) % Plt Count 186 (140-440) K/uL BMP 12/04/24 00:16 Sodium 139 Potassium 4.0 Chloride 97 Carbon Dioxide 34 H BUN 38 H Creatinine 1.5 Glucose 251 H Calcium 8.5 Assessment and Plan Assessment and plan (1) CHF exacerbation: Status: Acute (2) COPD exacerbation: Status: Acute (3) Respiratory failure: Status: Acute (4) Paroxysmal atrial fibrillation: Status: Chronic (5) Cardiorenal syndrome: Problem comment: Possible cardiorenal. Backing off on diuresis due to increased creatinine 04/12/23. Cr stable at 1.6 on 04/13/23. Status: Acute Plan # Acute Hypoxic/Hypercapneic Respiratory failure requiring 2L oxygen # COPD Exacerbation # Bronchitis/Evolving Pneumonia # CHF Exac - pt is presenting with worsening cough, sob, new oxygen requirement. Lung exam with diffuse wheezing, rhales and rhonchi - cont with solumedrol, duonebs, antibiotics - wean oxygen as tolerated - Hold of further diuresis due to softer blood pressure - Pt has skin tear on right leg. currently on abx that will cover for cellulitis. # AFib - resume home metoprolol and cardizem after verifying the doses. - cont coumadin and daily INR Check # Type 2 DM - cont with home long acting lantus and sliding scale. - hold oral meds # NIcotine dependence # Morbid Obesity # DVT proph - on coumadin however subtherapeutic IRN. will place on DVT proph dose of lovenox for now. Total Time Spent Total Time Spent: 65 Telehealth: Statement Statement Telehealth Visit: Today's History and Physical is provided via interactive telehealth by Janelle Hough MD.? Patient is located at [facility].? Provider is located at [facility].? Nursing staff assisted with the patient's exam. The visit being done today meets criteria for a telehealth visit and the patient or patient?s parent/guardian is aware the visit is a telehealth visit. Camera Start Time: 04:16 Camera End Time: 04:30
[2024-12-05] MEDS: FUROSEMIDE 10 MG/ML inj 60 MG IVP (05:24)
[2024-12-05] MEDS: NICOTINE 21 MG PATCH 1 PATCH TRANSDERMA (05:27)
--- NOTE | 2024-12-05 06:52 | PC.NURSE ---
Shift note ([id number]): Patient admitted from ED at 0228. Slide transferred from stretcher to room bed. Pleasant, alert and oriented. Denied pain. SOB with repositioning. O2 sats 92-93% on 2 LPM via nasal cannula and via BiPap.?
[2024-12-05] MEDS: GABAPENTIN 300 MG CAPSULE 600 MG PO ×2 (09:15→22:09)
[2024-12-05] MEDS: DOXYCYCLINE HYCLATE 100 MG PO ×2 (09:15→22:10)
[2024-12-05] MEDS: dilTIAZem 240 MG CAP (CD) PO (09:16)
[2024-12-05] MEDS: SODIUM CHLORIDE 0.9 % (FLUSH) 10 ML SYRINGE 5 ML IVF ×2 (09:17→22:11)
[2024-12-05] MEDS: INSULIN ASPART 100 UNIT/ML SUBCUT ×4 (10:04→22:31)
[2024-12-05] MEDS: predniSONE 20 MG TABLET 60 MG PO (10:05)
[2024-12-05] MEDS: POTASSIUM CHLORIDE 10 MEQ CAPSULE ER 40 MEQ PO ×2 (11:54→18:33)
[2024-12-05 12:31] LABS: Magnesium* 1.4 mg/dL (1.5-2.6)
[2024-12-05 14:21] LABS: Hemoglobin A1C* 8.8 % (0-5.6)
--- NOTE | 2024-12-05 15:00 | P.IMPN_ITS ---
Assessment and Plan Assessment and plan (1) Acute on chronic respiratory failure with hypoxia and hypercapnia: Problem comment: Primarily due to COPD and secondarily CHF Status: Acute (2) COPD exacerbation: Problem comment: COPD exacerbation with hypoxic respiratory failure and hypercarbic respiratory failure appears to be the primary cause. Heart failure more likely to be secondary. Will treat with inhaled bronchodilators, systemic corticosteroids, antibiotics. Clinically she is not have pneumonia but she does describe upper respiratory infection symptoms prior to onset of worsening dyspnea in the last few days. Status: Acute (3) CHF exacerbation: Problem comment: Heart failure with preserved ejection fraction likely contributing some to her respiratory failure. Diuresis Status: Acute (4) Skin tear: Problem comment: Skin tear and right novak. Does not appear to be currently infected. Monitor and provide wound care Status: Acute (5) Diabetes mellitus: Problem comment: Last hemoglobin A1c was 7.4. Blood sugars are now quite high likely due to steroids used for COPD. Initiate basal bolus insulin. Status: Acute (6) Pulmonary hypertension: Problem comment: Echo from 08/24/2024: LVEF 60 65%, RV moderately enlarged with mildly reduced function, moderate aortic stenosis, moderate mitral regurg, severe pulmonary hypertension at 55 mmHg plus right atrial pressure Status: Acute (7) Physical debility: Problem comment: - multifactorial including morbid obesity, deconditioning, heart failure, lymphedema, COPD - PT and OT assessment. Status: Acute (8) Anticoagulation goal of INR 2 to 3: Problem comment: for paroxysmal afib. On warfarin. Status: Chronic (9) Diabetic peripheral neuropathy associated with type 2 diabetes mellitus: Problem comment: - due to decreased creatinine clearance, decreased dose of gabapentin to 300 mg twice daily Status: Acute (10) Chronic kidney disease, stage III (moderate): Problem comment: - 04/07/2023: monitor labs closely as we intervene -04/08/23: Suspect a component of cardiorenal- improving with diuresis Status: Acute Plan Patient admitted to the hospital for management of COPD exacerbation, heart failure causing acute on chronic hypoxic and hypercarbic respiratory failure. Total Time Spent Total Time Spent: Total time spent today is 60 minutes in reviewing outside records, coordination of care, discussion with patient and other providers about ongoing management of respiratory failure. Subjective Date Seen: 12/05/24 Interval history: Admission HPI: Sydnie Parkinson is a 74 year old With past medical history significant for nicotine dependence, COPD, A-fib on Coumadin, Cardizem and metoprolol, history of right-sided heart failure with preserved EF, on diuretics and as needed metolazone, insulin-dependent diabetes with neuropathy presented emergency department with 1 week history of worsening shortness of breath and cough. Patient reports she has been having worsening cough and shortness of breath over the last 1 week. She has not checked her temperature however does report chills at home. She denies any chest pain, abdominal pain, nausea vomiting or diarrhea. Patient denies any worsening lower extremity edema. Denies any weight gain. Patient was found to be hypoxic and was placed on 2 L oxygen. Blood pressure has been in the low 100 range. Pulse has been between 70-80. She is mildly tachypneic. 93 to 5% on 2 L oxygen. Workup in the emergency department showed no significant findings on CBC, INR is 1.75, blood gas showed pH of 7.38, pCO2 59, sodium 139, potassium 4.0, chloride 97, CO2 34, anion gap 8, BUN 38, creatinine 1.5, glucose 251, lactate 1.5, calcium 8.5, proBNP 3250. Prior BNP was 3370. Respiratory panel is negative for SARS-CoV-2, influenza A, B, RSV. Chest x-ray showed stable cardiomegaly with vascular congestion and mild pulmonary edema. In the emergency department patient was given breathing treatment, Solu-Medrol 125 mg IV, Lasix 40 mg IV. Patient symptoms have improved however she is still tachypneic and significantly wheezy. 12/05/2024: Patient admitted this morning with dyspnea and wheezing as noted above. Treated for COPD, heart failure, pneumonia. She reports feeling better now. Still dyspneic and wheezing however. She lives independently in [place]. She tells me this is going well. She was hospitalized here in July. Echocardiogram at that time showed preserved LV function with ejection fraction of 60 65%, mildly reduced right ventricular function, moderate aortic stenosis, moderate mitral regurg, severe pulmonary hypertension with a right pressure of 55 mmHg plus right atrial pressure. She had aggressive diuresis with a weight of 168.6 kg on admission to a weight of 146.2 kg on discharge, 22.4 kg. With this vigorous diuresis her creatinine remained relatively stable at about 1.2. Her BUN did go up to 48 and her CO2 up to 39. Her current proBNP on admission in July was 3370 and on this admission 3250. Exam Narrative: Exam Narrative: She is alert oriented and appears in mild respiratory distress breathing oxygen via nasal cannula. Speech is normal. Oropharynx with small airway. Neck is supple without mass or adenopathy. Respirations with marked decreased breath sounds, prolonged expiratory phase, diffuse wheezing. Cardiovascular: S1, S2, regular rate and rhythm. Abdomen: Bowel sounds active. Abdomen is soft without tenderness or mass. Lower extremities with moderately severe lymphedema bilaterally. She does have an ulcer over her right novak which is about 2 x 4 cm in size with minimal erythema surrounding it. Intact pedal pulses. Const: Vital Signs, click to edit/add: Vital Signs - 24 hr 12/04/24 22:51 12/04/24 22:53 12/04/24 23:00 Temperature 98.2 F Pulse Rate 87 85 Pulse Rate [Pulse Oximeter] 83 Respiratory Rate 22 22 20 Blood Pressure Blood Pressure [Le ft Arm] Blood Pressure [Ri ght Arm] Blood Pressure [Ri ght Forearm] 102/74 Pulse Oximetry 98 89 97 Oxygen Delivery Me thod Room Air Oxygen Flow Rate 12/04/24 23:15 12/04/24 23:17 12/04/24 23:31 Temperature Pulse Rate 79 89 Pulse Rate [Pulse Oximeter] Respiratory Rate 22 22 20 Blood Pressure 112/65 114/71 Blood Pressure [Le ft Arm] Blood Pressure [Ri ght Arm] Blood Pressure [Ri ght Forearm] Pulse Oximetry 91 97 Oxygen Delivery Me thod Oxygen Flow Rate 12/04/24 23:33 12/04/24 23:45 12/05/24 00:00 Temperature Pulse Rate 83 80 76 Pulse Rate [Pulse Oximeter] Respiratory Rate 22 22 20 Blood Pressure Blood Pressure [Le ft Arm] Blood Pressure [Ri ght Arm] Blood Pressure [Ri ght Forearm] Pulse Oximetry 97 97 93 Oxygen Delivery Me thod Oxygen Flow Rate 12/05/24 00:10 12/05/24 00:15 12/05/24 00:30 Temperature Pulse Rate 91 84 69 Pulse Rate [Pulse Oximeter] Respiratory Rate 18 20 Blood Pressure 113/77 Blood Pressure [Le ft Arm] Blood Pressure [Ri ght Arm] Blood Pressure [Ri ght Forearm] Pulse Oximetry 96 96 96 Oxygen Delivery Me thod Oxygen Flow Rate 12/05/24 00:31 12/05/24 00:45 12/05/24 01:00 Temperature Pulse Rate 78 83 85 Pulse Rate [Pulse Oximeter] Respiratory Rate 23 31 H Blood Pressure 111/68 Blood Pressure [Le ft Arm] Blood Pressure [Ri ght Arm] Blood Pressure [Ri ght Forearm] Pulse Oximetry 97 92 95 Oxygen Delivery Me thod Oxygen Flow Rate 12/05/24 01:01 12/05/24 01:01 12/05/24 01:01 Temperature Pulse Rate 89 89 89 Pulse Rate [Pulse Oximeter] Respiratory Rate 16 16 16 Blood Pressure 110/89 110/89 110/89 Blood Pressure [Le ft Arm] Blood Pressure [Ri ght Arm] Blood Pressure [Ri ght Forearm] Pulse Oximetry 88 88 88 Oxygen Delivery Me thod Oxygen Flow Rate 12/05/24 01:01 12/05/24 01:15 12/05/24 01:30 Temperature Pulse Rate 89 76 80 Pulse Rate [Pulse Oximeter] Respiratory Rate 16 34 H 16 Blood Pressure 110/89 Blood Pressure [Le ft Arm] Blood Pressure [Ri ght Arm] Blood Pressure [Ri ght Forearm] Pulse Oximetry 88 87 L 98 Oxygen Delivery Me thod Oxygen Flow Rate 12/05/24 01:31 12/05/24 01:45 12/05/24 02:00 Temperature Pulse Rate 76 81 75 Pulse Rate [Pulse Oximeter] Respiratory Rate 17 19 18 Blood Pressure 104/71 Blood Pressure [Le ft Arm] Blood Pressure [Ri ght Arm] Blood Pressure [Ri ght Forearm] Pulse Oximetry 99 98 97 Oxygen Delivery Me thod Oxygen Flow Rate 12/05/24 02:01 12/05/24 02:15 12/05/24 02:30 Temperature 98.1 F Pulse Rate 79 83 Pulse Rate [Pulse Oximeter] 83 Respiratory Rate 21 20 21 Blood Pressure 101/71 Blood Pressure [Le ft Arm] Blood Pressure [Ri ght Arm] 102/70 Blood Pressure [Ri ght Forearm] Pulse Oximetry 97 98 92 Oxygen Delivery Me thod Nasal Cannula Oxygen Flow Rate 2 12/05/24 03:29 12/05/24 07:00 12/05/24 09:09 Temperature 97.9 F Pulse Rate Pulse Rate [Pulse Oximeter] 100 Respiratory Rate 20 20 Blood Pressure Blood Pressure [Le ft Arm] 106/78 Blood Pressure [Ri ght Arm] Blood Pressure [Ri ght Forearm] Pulse Oximetry 93 93 Oxygen Delivery Me thod Nasal Cannula Nasal Cannula Oxygen Flow Rate 2 1 12/05/24 11:00 12/05/24 11:59 12/05/24 14:47 Temperature 97.7 F Pulse Rate 91 84 Pulse Rate [Pulse Oximeter] 105 H Respiratory Rate 22 Blood Pressure Blood Pressure [Le ft Arm] 130/69 Blood Pressure [Ri ght Arm] Blood Pressure [Ri ght Forearm] Pulse Oximetry 92 Oxygen Delivery Me thod Nasal Cannula Oxygen Flow Rate 0.5 Documenting provider has reviewed patient's vital signs: yes Labs Labs: Laboratory Results - last 24 hr 12/04/24 12/04/24 12/05/24 00:16 00:19 00:16 WBC 6.55 RBC 5.20 Hgb 16.4 H Hct 49.9 MCV 96 MCH 32 MCHC 33 RDW Coeff of Aby 15.4 Plt Count 186 Neut % (Auto) 69.3 Lymph % (Auto) 16.8 L [place] % (Auto) 8.9 Eos % (Auto) 3.5 Baso % (Auto) 0.3 Neut # (Auto) 4.54 Lymph # (Auto) 1.10 [place] # (Auto) 0.60 Eos # (Auto) 0.23 Baso # (Auto) 0.02 Abs Immat Gran (auto) 0.08 Imm/Tot Granulo (auto) 1.2 INR 1.75 H VBG pH 7.383 VBG pCO2 59 H VBG pO2 < 30.1 VBG HCO3 35 H Sodium 139 Potassium 4.0 Chloride 97 Carbon Dioxide 34 H Anion Gap 8 BUN 38 H Creatinine 1.5 Estimated Creat Clear 30.80 Estimated GFR 36 Glucose 251 H Hemoglobin A1c 8.8 H Lactate 1.5 Calcium 8.5 Magnesium 1.4 L NT-Pro-B Natriuret Pep 3250 H SARS-CoV-2 (PCR) Negative SARS-CoV-2 Influenza Type A (PCR) Negative PCR FLU A Influenza Type B (PCR) Negative PCR FLU B RSV (PCR) Negative PCR RSV Lab Acknowledgement Test Added POC Troponin I 0.00 L
--- NOTE | 2024-12-05 15:39 | PC.SOCIAL ---
Discharge planning: construction ironworker helper spoke to MARELY Back with [facility] traveling physicians #[phone]. construction ironworker helper notified Nazanin of pt's status in the hospital and discharge disposition plan. construction ironworker helper asked Nazanin what, if any, home health care services that the pt receives and she did not know and will look into this further and get back to this worker tomorrow. construction ironworker helper did let Nazanin know that the pt will most likely need Lymphedema [facility] for Lymphedema wrapping. Social work to follow-up as needed.
[2024-12-05] MEDS: INSULIN GLARGINE,HUM.REC.ANLOG 100 UNIT/ML INSULN.PEN 20 UNIT SUBCUT (16:49)
[2024-12-05] MEDS: cefTRIAXone 2 GM in 0.9 % SODIUM CHLORIDE Mini-bag 100 ML IVPB (16:50)
[2024-12-05] MEDS: WARFARIN 2.5 MG TABLET PO (16:50)
--- NOTE | 2024-12-05 18:10 | PC.NURSE ---
The patient is pleasant and alert and orientated. SOB is noted at rest/ and increased with activity. Required O2 throughout a majority of the shift, now on RA maintaining saturations well. No complaints of pain this shift. RLE is noted to have a skin tear that appears to be healing, although is quite reddened. Bilateral LE noted to have lymphedema and 2+ edema. Ax1 w/ GB and RW to chair. Purewick in place for frequent voids from diuresis. R AC IV. Blood sugars are noted to be quite high, MD is aware. The patient is also none compliant with diabetic diet recommendations. Call light within reach. Lupe KRISHNAN BSN
[2024-12-05] MEDS: ATORVASTATIN CALCIUM 40 MG TABLET 80 MG PO (22:09)
[2024-12-05] MEDS: INSULIN GLARGINE,HUM.REC.ANLOG 100 UNIT/ML INSULN.PEN 25 UNIT SUBCUT (22:33)
[2024-12-06] VITALS (10 sets, daily range): BP systolic 103–126; BP diastolic 60–83; PULSE 81–103; RESP 16–26; TEMP 36.6–36.7; O2SAT 86–93
[2024-12-06 06:49] LABS: HCO3 VBG 34 mmol/L (21-28); PCO2 VBG 53 mmHG (40-50); PO2 VBG 44.9 mmHG (25-47); pH VBG 7.419 (7.32-7.43)
[2024-12-06 06:50] LABS: Hemoglobin* 15.9 gm/dL (12.0-16.0); Immature Granulocytes Abs Auto 0.03 K/uL (0.00-0.30); Immature Granulocytes Pct Auto 0.3 %; Lymphocytes Percent Auto 4.4 % (20-44); Mean Corpuscular HGB Conc 32 gm/dL (32-36); Mean Corpuscular Hemoglobin 31 pg (26-34); Mean Corpuscular Volume 96 fL (80-100); Monocytes Percent Auto 3.5 % (0.0-11.0); Neutrophils Percent Auto 91.8 % (42.0-72.0); Platelet Count* 183 K/uL (140-440); RDW Coefficient of Variation % 15.1 % (11.5-15.5); Red Blood Count* 5.12 m/uL (4.00-5.20); White Blood Count* 10.46 K/uL (4.50-11.00)
[2024-12-06 06:53] LABS: Slide Review Reflex No
[2024-12-06 07:03] LABS: Hemoglobin A1C* 8.7 % (0-5.6)
[2024-12-06 07:05] LABS: Chloride* 97 mmol/L (96-114); Sodium* 140 mmol/L (135-149)
[2024-12-06 07:06] LABS: Potassium* 3.5 mmol/L (3.6-5.1)
[2024-12-06 07:08] LABS: Blood Urea Nitrogen* 46 mg/dL (7-30); Creatinine* 1.2 mg/dL (0.5-1.5); Estimated Glomerular Filt Rate 48 ml/min
[2024-12-06 07:09] LABS: Anion Gap 10 mEq/L (7-15); Calcium* 8.2 mg/dL (8.4-10.6); Carbon Dioxide* 33 mmol/L (20-32); Glucose* 331 mg/dL (60-115); INR 1.74 (0.91-1.10); Prothrombin Time 21.4 Seconds
[2024-12-06] MEDS: NICOTINE 21 MG PATCH 1 PATCH TRANSDERMA (07:50)
--- NOTE | 2024-12-06 08:03 | PC.NURSE ---
Pt alert and oriented x3. Afebrile. On room air. Pt denies pain, chest pain and N/V. Pt reports SOB with exertion. Pt's lung sounds have inspiratory and expiratory wheezes and pt has non-productive intermittent cough. Pt's eternal catheter is patent and draining. Pt is up A1 with walker and gait belt and tolerating a theraputic diet.
[2024-12-06] MEDS: INSULIN ASPART 100 UNIT/ML SUBCUT ×4 (08:54→21:44)
[2024-12-06] MEDS: POTASSIUM CHLORIDE 10 MEQ CAPSULE ER 40 MEQ PO ×3 (08:55→18:08)
[2024-12-06] MEDS: predniSONE 20 MG TABLET 40 MG PO (08:55)
[2024-12-06] MEDS: FUROSEMIDE 10 MG/ML inj 40 MG IVP (08:56)
[2024-12-06] MEDS: DOXYCYCLINE HYCLATE 100 MG PO ×2 (08:56→21:42)
[2024-12-06] MEDS: METOPROLOL SUCCINATE (XL) 100 MG TAB 200 MG PO (08:56)
[2024-12-06] MEDS: dilTIAZem 240 MG CAP (CD) PO (08:56)
[2024-12-06] MEDS: GABAPENTIN 300 MG CAPSULE 600 MG PO ×2 (08:56→21:42)
[2024-12-06] MEDS: SODIUM CHLORIDE 0.9 % (FLUSH) 10 ML SYRINGE 5 ML IVF ×2 (08:57→21:49)
[2024-12-06] MEDS: INSULIN GLARGINE,HUM.REC.ANLOG 100 UNIT/ML INSULN.PEN 20 UNIT SUBCUT (08:57)
[2024-12-06] MEDS: IPRAT-ALBUT 0.5-2.5 MG/3 ML NEB 1 NEB IH ×4 (08:57→21:42)
--- NOTE | 2024-12-06 11:27 | NUTR.NU ---
Addendum entered and electronically signed by Elizabet Case RD 12/07/24 10:10: GARRICKN visited with patient today whom reports not following a specific diet at home. She lives at home alone. Offered diet education with educational materials for diabetic diet and heart heart diet for CHF. Patient declined at this time. No nutrition interventions at this time. Possible discharge today. Original Note: RDN with diet education related to current diet order. Patient admitted for COPD Exacerbation and CHF. Current weight 321lb 3oz; height 5ft 6in; BMI 51.8 kg/m2. Per weight records weight has been stable recently. Current diet is diabetic. Meal intakes since admit have been 25%+. Diet education related to Heart Healthy diet offered at previous hospitalization on 08/26/24, however patient declined at that time. She reported she does not follow a heart healthy diet at home at that time. RDN attempted to visit with patient related to diet order and education, however she was not available at that time. GARRICKN will continue to monitor and attempt to visit at later date if appropriate.
--- NOTE | 2024-12-06 13:14 | REH.OT ---
OT: Lymphedema OT consulted with patient and patient trialed use of Size Large Edema Wear Stockinet to L LE which patient trialed for ~2 minutes and requested to have removed. Patient tolerated lotion to LEs but declines having any compression garment to RLE today. Lymphedema OT recommended continue to trial use as patient able to tolerate tomorrow. Patient does have velcro closure compression wraps and pumps at home. Recommending resume [facility] lymphedema intervention when medically stable for d/c. Patient declined OOB activity this am due to level of fatigue and agreed to work with OT later today to progress activity level.
[2024-12-06] MEDS: ACETAMINOPHEN 325 MG TABLET 650 MG PO (13:53)
--- NOTE | 2024-12-06 13:54 | P.IMPN_ITS ---
Assessment and Plan Assessment and plan (1) Acute on chronic respiratory failure with hypoxia and hypercapnia: Problem comment: Primarily due to COPD and secondarily CHF. Improving Status: Acute (2) COPD exacerbation: Problem comment: COPD exacerbation with hypoxic respiratory failure and hypercarbic respiratory failure appears to be the primary cause. Heart failure more likely to be secondary. Will treat with inhaled bronchodilators, systemic corticosteroids, antibiotics. Clinically she is not have pneumonia but she does describe upper respiratory infection symptoms prior to onset of worsening dyspnea in the last few days. Improving Status: Acute (3) CHF exacerbation: Problem comment: Heart failure with preserved ejection fraction likely contributing some to her respiratory failure. Diuresis. Status: Acute (4) Skin tear: Problem comment: Skin tear and right novak. Does not appear to be currently infected. Monitor and provide wound care Status: Acute (5) Diabetes mellitus: Problem comment: Last hemoglobin A1c was 7.4. Blood sugars are now quite high likely due to steroids used for COPD. Initiate basal bolus insulin to manage steroid induced hyperglycemia Status: Acute (6) Pulmonary hypertension: Problem comment: Echo from 08/24/2024: LVEF 60 65%, RV moderately enlarged with mildly reduced function, moderate aortic stenosis, moderate mitral regurg, severe pulmonary hypertension at 55 mmHg plus right atrial pressure Status: Acute (7) Physical debility: Problem comment: - multifactorial including morbid obesity, deconditioning, heart failure, lymphedema, COPD - PT and OT assessment. Appears that she will be able to go home and function independently Status: Acute (8) Anticoagulation goal of INR 2 to 3: Problem comment: for paroxysmal afib. On warfarin. Status: Chronic (9) Diabetic peripheral neuropathy associated with type 2 diabetes mellitus: Problem comment: - due to decreased creatinine clearance, decreased dose of gabapentin to 300 mg twice daily Status: Acute (10) Chronic kidney disease, stage III (moderate): Problem comment: Renal function has been stable during this hospital stay Status: Acute Plan Continue in hospital for ongoing management of COPD and CHF. Hopefully she can be discharged to home without supplemental oxygen. Total Time Spent Total Time Spent: Total time spent today is 40 minutes in coordination of care and discussing with patient and other providers ongoing management of heart failure COPD and disability Subjective Date Seen: 12/06/24 Interval history: Admission HPI: Sydnie Parkinson is a 74 year old With past medical history significant for nicotine dependence, COPD, A-fib on Coumadin, Cardizem and metoprolol, history of right-sided heart failure with preserved EF, on diuretics and as needed metolazone, insulin-dependent diabetes with neuropathy presented emergency department with 1 week history of worsening shortness of breath and cough. Patient reports she has been having worsening cough and shortness of breath over the last 1 week. She has not checked her temperature however does report chills at home. She denies any chest pain, abdominal pain, nausea vomiting or diarr hea. Patient denies any worsening lower extremity edema. Denies any weight gain. Patient was found to be hypoxic and was placed on 2 L oxygen. Blood pressure has been in the low 100 range. Pulse has been between 70-80. She is mildly tachypneic. 93 to 5% on 2 L oxygen. Workup in the emergency department showed no significant findings on CBC, INR is 1.75, blood gas showed pH of 7.38, pCO2 59, sodium 139, potassium 4.0, chloride 97, CO2 34, anion gap 8, BUN 38, creatinine 1.5, glucose 251, lactate 1.5, calcium 8.5, proBNP 3250. Prior BNP was 3370. Respiratory panel is negative for SARS-CoV-2, influenza A, B, RSV. Chest x-ray showed stable cardiomegaly with vascular congestion and mild pulmonary edema. In the emergency department patient was given breathing treatment, Solu-Medrol 125 mg IV, Lasix 40 mg IV. Patient symptoms have improved however she is still tachypneic and significantly wheezy. 12/05/2024: Patient admitted this morning with dyspnea and wheezing as noted above. Treated for COPD, heart failure, pneumonia. She reports feeling better now. Still dyspneic and wheezing however. She lives independently in [place]. She tells me this is going well. She was hospitalized here in July. Echocardiogram at that time showed preserved LV function with ejection fraction of 60 65%, mildly reduced right ventricular function, moderate aortic stenosis, moderate mitral regurg, severe pulmonary hypertension with a right pressure of 55 mmHg plus right atrial pressure. She had aggressive diuresis with a weight of 168.6 kg on admission to a weight of 146.2 kg on discharge, 22.4 kg. With this vigorous diuresis her creatinine remained relatively stable at about 1.2. Her BUN did go up to 48 and her CO2 up to 39. Her current proBNP on admission in July was 3370 and on this admission 3250. 12/06/2024: Patient reports that her breathing is a little bit better. She still having some nasal congestion and a little sore throat. She is not aware of any fever. She reports that she is feeling a little stronger and walking short distances in the room. Exam Narrative: Exam Narrative: She is alert and oriented to her circumstances. Breathing comfortably on room air. O2 sats in the upper 80s. Respirations with diminished breath sounds and occasional wheezes but much improved breath sounds and wheezing compared to yesterday. No rales or consolidation. Cardiovascular: S1, S2, regular rate and rhythm. Abdomen: Bowel sounds active. Abdomen is soft without tenderness or mass. Extremities with moderate edema, improved from yesterday Const: Vital Signs, click to edit/add: Vital Signs - 24 hr 12/05/24 14:47 12/05/24 15:00 12/05/24 16:00 Temperature 97.8 F Pulse Rate 84 Pulse Rate [Pulse Oximeter] 95 Respiratory Rate 20 22 Blood Pressure [Le ft Arm] 139/83 Blood Pressure [Ri ght Arm] Pulse Oximetry 90 91 Oxygen Delivery Me thod Room Air Room Air 12/05/24 18:38 12/05/24 22:00 12/05/24 22:51 Temperature 97.8 F Pulse Rate Pulse Rate [Pulse Oximeter] 109 H 109 H Respiratory Rate 22 Blood Pressure [Le ft Arm] 117/76 Blood Pressure [Ri ght Arm] Pulse Oximetry 90 92 Oxygen Delivery Me thod CPAP Room Air 12/05/24 23:00 12/05/24 23:00 12/05/24 23:00 Temperature 97.8 F Pulse Rate Pulse Rate [Pulse Oximeter] 106 H 106 H Respiratory Rate 20 20 20 Blood Pressure [Le ft Arm] Blood Pressure [Ri ght Arm] 114/75 Pulse Oximetry 92 88 Oxygen Delivery Me thod Room Air Room Air 12/06/24 01:57 12/06/24 02:20 12/06/24 07:00 Temperature 97.8 F Pulse Rate 94 92 Pulse Rate [Pulse Oximeter] 84 Respiratory Rate 20 Blood Pressure [Le ft Arm] Blood Pressure [Ri ght Arm] 110/77 Pulse Oximetry 91 Oxygen Delivery Me thod Room Air 12/06/24 07:00 12/06/24 07:00 12/06/24 12:47 Temperature 98.0 F Pulse Rate Pulse Rate [Pulse Oximeter] 103 H 81 Respiratory Rate 24 26 H 20 Blood Pressure [Le ft Arm] 103/76 Blood Pressure [Ri ght Arm] 115/70 Pulse Oximetry 86 L 86 L 93 Oxygen Delivery Me thod Room Air Room Air CPAP Documenting provider has reviewed patient's vital signs: yes Labs Labs: Laboratory Results - last 24 hr 12/04/24 12/06/24 00:19 06:39 WBC 10.46 RBC 5.12 Hgb 15.9 Hct 49.0 MCV 96 MCH 31 MCHC 32 RDW Coeff of Aby 15.1 Plt Count 183 Neut % (Auto) 91.8 H Lymph % (Auto) 4.4 L [place] % (Auto) 3.5 Eos % (Auto) 0.0 Baso % (Auto) 0.0 Neut # (Auto) 9.60 H Lymph # (Auto) 0.50 L [place] # (Auto) 0.40 Eos # (Auto) 0.00 Baso # (Auto) 0.00 Abs Immat Gran (auto) 0.03 Imm/Tot Granulo (auto) 0.3 INR 1.74 H VBG pH 7.419 VBG pCO2 53 H VBG pO2 44.9 VBG HCO3 34 H Sodium 140 Potassium 3.5 L Chloride 97 Carbon Dioxide 33 H Anion Gap 10 BUN 46 H Creatinine 1.2 Estimated Creat Clear 38.50 Estimated GFR 48 Glucose 331 H Hemoglobin A1c 8.8 H 8.7 H Calcium 8.2 L
--- NOTE | 2024-12-06 14:19 | RESP.RT ---
Respiratory Therapy Progress Note The patient was evaluated today by respiratory therapy to assess the need for supplemental oxygen. The patient is on home CPAP therapy with oxygen saturation SpO2 of 91% during assessment. SpO2 decreased upon removal of the CPAP mask. The patient is a current smoker and reports not using nebulizers or supplemental oxygen at home. No signs of acute respiratory distress observed. Patient is currently being diuresed. The patient's oxygen saturation levels are suboptimal, particularly upon removal of the CPAP mask. Given the patient's smoking history and no home nebulizer and oxygen therapy, there is a need to initiate supplemental oxygen and scheduled nebulizer treatments to improve oxygenation.
--- NOTE | 2024-12-06 15:16 | PC.SOCIAL ---
Discharge planning: SW met with patient to discuss resource and support needs. Patient states that she can't think of anything right now as she's stressed about finances but knows that no where will give her money. SW inquired about if she's behind on bills and if she is getting enough to eat with these financial concerns. Patient reports that she has enough food and the only bill she is behind on is a credit card bill. SW explained unfortunately there isn't anything for credit card bill help but did discuss that there are services if she were to fall behind on utility bills, patient states this isn't a concern. SW discussed [address] [place] [address] and the financial counselors they have if patient had interest in that. Patient states no interest. Patient reports that she orders grocery's and doesn't qualify for WIC. SW explained that the program she would potentially qualify for is SNAP, but patient did not want information on this. Patient explains that she has a sister who will drive her home at discharge. Patient states her cousin who lives on the other side of [facility] assists in bringing her to any doctors appts that she has. Patient confirmed the home care services that she receives that she has discussed with OT/PT. Patient explained she does have someone that comes and cleans her house. Patient had no concerns or questions about additional resources at this time and states if she needs any that she has a foster care social worker through her home care services. SW to assist if needs arise.
--- NOTE | 2024-12-06 15:27 | PC.NURSE ---
End of shift [id number] - Pt alert, oriented, cooperative. Not up from bed during shift. Reported feeling terrible and tired and appeared tearful. RN provided emotional support and encouraged pt to rest between cares. O2 saturation on RA fluctuated between 85-88%. RT notified, orders given. Pt uses home CPAP appropriately, denies n/v, lightheadedness and dizziness. Reported headache towards end of shift, given medication per MAR to improve pt comfort. Appears to be resting in bed with call light within reach. RN completed pt handoff at approximately 1530.
[2024-12-06] MEDS: FUROSEMIDE 10 MG/ML inj 60 MG IVP (16:41)
[2024-12-06] MEDS: WARFARIN 2 MG TABLET 4 MG PO (18:09)
[2024-12-06] MEDS: cefTRIAXone 2 GM in 0.9 % SODIUM CHLORIDE Mini-bag 100 ML IVPB (18:39)
[2024-12-06] MEDS: ATORVASTATIN CALCIUM 40 MG TABLET 80 MG PO (21:42)
[2024-12-06] MEDS: INSULIN GLARGINE,HUM.REC.ANLOG 100 UNIT/ML INSULN.PEN 25 UNIT SUBCUT (21:43)
--- NOTE | 2024-12-06 22:35 | PC.NURSE ---
Arrived to patient?s room for initial assessment at 1515. Found the patient hypotensive and hypoxic while on CPAP. I put on a continual oxygen reader and applied 1L O2 via nasal cannula under patient?s CPAP mask. This amol oxygen to an acceptable 91%. Reported a 7/10 headache at this time. Acetaminophen not effective. Later went away. Pedal pulses non palpable. Skin and nails of feet show blood access via coloration. Skin is wrinkled on limbs. Non pitting edema of extremities. Skin is tight around the ankles. Legs elevated. No weeping wounds. Skin tear on right lower leg covered and clean, dry, intact. Upper anterior lobes are clear. Patient is very large of body and I was unable to hear lower lobes from this access position. To assess posterior lobes with transfer. Moving is very difficult for the patient. Skin on arms and legs covered with old scratches from her cat, per patient. Widespread bruising. No signs of infected skin. Educated on need to monitor those wounds from her cat for infection; high risk. External female catheter in place for chronic incontinence. Irregular heart beat. Chronic controlled afib. Right lower abdominal pain with palpitation. The patient reports it as a muscle sprain.?Not reported later in the day. Activity was encouraged and the patient educated on need to move out of bed before discharge. She was able to move herself to the edge of the bed for dinner but it took a great deal of her strength to do so. Does not appear to be adhering to a diabetic diet. Sugary drinks. I was unable to wean the patient off oxygen and she needs 0.5-1L to keep saturations at or above 88%. Stool passed in the afternoon on commode; stand to pivot. ? My care for this patient was carried out under the supervision of preceptor Maritza and all high risk medications were provided with her approval. ?
[2024-12-07 01:23] VITALS: PULSE 99
[2024-12-07 03:15] VITALS: BP 123/78; PULSE 74; RESP 18; O2SAT 88
[2024-12-07] MEDS: NICOTINE 21 MG PATCH 1 PATCH TRANSDERMA (04:53)
[2024-12-07 06:20] LABS: HCO3 VBG 37 mmol/L (21-28); PO2 VBG 40.2 mmHG (25-47); pH VBG 7.374 (7.32-7.43)
[2024-12-07 06:23] LABS: PCO2 VBG 64 mmHG (40-50)
[2024-12-07 06:25] LABS: Basophils Percent Auto 0.1 % (0.0-3.0); Hematocrit* 50.7 % (33.0-51.0); Hemoglobin* 16.1 gm/dL (12.0-16.0); Immature Granulocytes Pct Auto 0.6 %; Mean Corpuscular HGB Conc 32 gm/dL (32-36); Mean Corpuscular Hemoglobin 31 pg (26-34); Mean Corpuscular Volume 97 fL (80-100); Monocytes Percent Auto 4.8 % (0.0-11.0); Neutrophils Percent Auto 88.5 % (42.0-72.0); Platelet Count* 201 K/uL (140-440); RDW Coefficient of Variation % 15.3 % (11.5-15.5); Red Blood Count* 5.21 m/uL (4.00-5.20); White Blood Count* 11.83 K/uL (4.50-11.00)
[2024-12-07 06:30] LABS: Slide Review Reflex No
[2024-12-07 06:35] LABS: Chloride* 96 mmol/L (96-114)
[2024-12-07 06:36] LABS: Potassium* 4.2 mmol/L (3.6-5.1); Sodium* 138 mmol/L (135-149)
[2024-12-07 06:38] LABS: Blood Urea Nitrogen* 60 mg/dL (7-30); Creatinine* 1.3 mg/dL (0.5-1.5); Est. Creatinine Clearance* 35.54; Estimated Glomerular Filt Rate 43 ml/min
[2024-12-07 06:39] LABS: Anion Gap 7 mEq/L (7-15); Calcium* 8.1 mg/dL (8.4-10.6); Carbon Dioxide* 35 mmol/L (20-32); Glucose* 260 mg/dL (60-115); INR 1.74 (0.91-1.10); Prothrombin Time 21.3 Seconds
--- NOTE | 2024-12-07 06:52 | PC.NURSE ---
Pt is alert and oriented x3. Afebrile. Pt denies pain, chest pain, SOB and N/V. Pt was placed on 0.5L O2 during night with CPAP but was titrated back down to room air. Pt is up A1 with walker and gait belt. Pt?s external catheter is patent and draining. ?
[2024-12-07 07:00] VITALS: BP 130/99; PULSE 70; PULSE 90; PULSE 94; RESP 20; O2SAT 90
[2024-12-07] MEDS: POTASSIUM CHLORIDE 10 MEQ CAPSULE ER 40 MEQ PO ×2 (08:50→11:35)
[2024-12-07] MEDS: INSULIN ASPART 100 UNIT/ML SUBCUT ×2 (08:53→12:00)
[2024-12-07] MEDS: EMPAGLIFLOZIN 25 MG TABLET PO (08:57)
[2024-12-07] MEDS: predniSONE 20 MG TABLET 40 MG PO (08:57)
[2024-12-07] MEDS: DOXYCYCLINE HYCLATE 100 MG PO (08:57)
[2024-12-07] MEDS: dilTIAZem 240 MG CAP (CD) PO (08:57)
[2024-12-07] MEDS: METOPROLOL SUCCINATE (XL) 100 MG TAB 200 MG PO (09:18)
[2024-12-07] MEDS: GABAPENTIN 300 MG CAPSULE 600 MG PO (09:18)
[2024-12-07] MEDS: IPRAT-ALBUT 0.5-2.5 MG/3 ML NEB 1 NEB IH (09:19)
[2024-12-07] MEDS: FUROSEMIDE 10 MG/ML inj 40 MG IVP (09:37)
[2024-12-07] MEDS: SODIUM CHLORIDE 0.9 % (FLUSH) 10 ML SYRINGE 5 ML IVF (09:38)
[2024-12-07] MEDS: INSULIN GLARGINE,HUM.REC.ANLOG 100 UNIT/ML INSULN.PEN 25 UNIT SUBCUT (09:39)
--- NOTE | 2024-12-07 09:48 | PC.SOCIAL ---
Addendum entered and electronically signed by Yara Saavedra LCSW 12/07/24 13:34: RAEGAN informed by provider that patient will be discharging today and isn't sure how to set up f/u appt and blood draw. RAEGAN contacted patient's home care social media specialist, Nazanin, and asked how scheduling appts works and blood draw works with their home care team. Nazanin states that she would assist with this. RAEGAN informed Nazanin that patient will be discharging today. Nazanin asked that RAEGAN fax orders and discharge summary to Dr. Rincon and RADIOPHARMACIST Jacquie Haley at [phone]. Nazanin states she will inform team and they must see her within 5 days of discharge. RAEGAN faxed notes, discharge summary, and orders to Dr. Rincon and Jacquie Haley. Original Note: Discharge planning: SW received call from patient's home health SW asking if patient was still admitted or discharged. SW explained patient is still admitted and is unlikely to discharge today. SW will call if that changes, otherwise home health SW plans to call back tomorrow.
[2024-12-07 11:00] VITALS: BP 103/81; PULSE 70; RESP 20; TEMP 36.7; O2SAT 90
--- NOTE | 2024-12-07 11:32 | PM.DS1 ---
DS: Providers Provider Date Seen: 12/07/24 Date of admission: 12/05/24 08:24 Primary care physician: Amarilis Rincon MD Admitting Clinician: Janelle Hough MD Attending Physician on discharge: Mohinder Morales MD Date of Discharge: 12/07/24 DS: Diagnosis Discharge Diagnosis (1) Acute on chronic respiratory failure with hypoxia and hypercapnia: Status: Acute Problem details: Primarily due to COPD and secondarily CHF. Improving (2) COPD exacerbation: Status: Acute Problem details: COPD exacerbation with hypoxic respiratory failure and hypercarbic respiratory failure appears to be the primary cause. Heart failure more likely to be secondary. Will treat with inhaled bronchodilators, systemic corticosteroids, antibiotics. Clinically she is not have pneumonia but she does describe upper respiratory infection symptoms prior to onset of worsening dyspnea in the last few days. Improving (3) CHF exacerbation: Status: Acute Problem details: Heart failure with preserved ejection fraction likely contributing some to her respiratory failure. Diuresis. (4) Skin tear: Status: Acute Problem details: Skin tear and right novak. Does not appear to be currently infected. Monitor and provide wound care (5) Diabetes mellitus: Status: Acute Problem details: Current hemoglobin A1c is 8.8. Blood sugars are now quite high likely due to steroids used for COPD. Prednisone will be done in 3 days. (6) Pulmonary hypertension: Status: Acute Problem details: Echo from 08/24/2024: LVEF 60 65%, RV moderately enlarged with mildly reduced function, moderate aortic stenosis, moderate mitral regurg, severe pulmonary hypertension at 55 mmHg plus right atrial pressure (7) Physical debility: Status: Acute Problem details: - multifactorial including morbid obesity, deconditioning, heart failure, lymphedema, COPD - PT and OT assessment. Appears that she will be able to go home and function independently (8) Anticoagulation goal of INR 2 to 3: Status: Chronic Problem details: for paroxysmal afib. On warfarin. Warfarin will be increased from 2.5 mg 6 days a week and 3.75 mg on to 3.75 mg every other day alternating with 2.5 mg every other day pending INR in 5 or 6 days (9) Diabetic peripheral neuropathy associated with type 2 diabetes mellitus: Status: Acute Problem details: On gabapentin. (10) Chronic kidney disease, stage III (moderate): Status: Acute Problem details: Renal function has been stable during this hospital stay (11) Smoking greater than 40 pack years: Status: Acute Problem details: Strongly encouraged smoking cessation. Nicotine patches ordered. (12) Obstructive sleep apnea on CPAP: Status: Acute Problem details: On home CPAP. She does have some hypoxia at night. Unfortunately she retained CO2 if supplemental oxygen is given. DS: Summary Hospital Course Hospital Course: Admission HPI: Sydnie Parkinson is a 74 year old With past medical history significant for nicotine dependence, COPD, A-fib on Coumadin, Cardizem and metoprolol, history of right-sided heart failure with preserved EF, on diuretics and as needed metolazone, insulin-dependent diabetes with neuropathy presented emergency department with 1 week history of worsening shortness of breath and cough. Patient reports she has been having worsening cough and shortness of breath over the last 1 week. She has not checked her temperature however does report chills at home. She denies any chest pain, abdominal pain, nausea vomiting or diarrhea. Patient denies any worsening lower extremity edema. Denies any weight gain. Patient was found to be hypoxic and was placed on 2 L oxygen. Blood pressure has been in the low 100 range. Pulse has been between 70-80. She is mildly tachypneic. 93 to 5% on 2 L oxygen. Workup in the emergency department showed no significant findings on CBC, INR is 1.75, blood gas showed pH of 7.38, pCO2 59, sodium 139, potassium 4.0, chloride 97, CO2 34, anion gap 8, BUN 38, creatinine 1.5, glucose 251, lactate 1.5, calcium 8.5, proBNP 3250. Prior BNP was 3370. Respiratory panel is negative for SARS-CoV-2, influenza A, B, RSV. Chest x-ray showed stable cardiomegaly with vascular congestion and mild pulmonary edema. In the emergency department patient was given breathing treatment, Solu-Medrol 125 mg IV, Lasix 40 mg IV. Patient symptoms have improved however she is still tachypneic and significantly wheezy. 12/05/2024: Patient admitted this morning with dyspnea and wheezing as noted above. Treated for COPD, heart failure, pneumonia. She reports feeling better now. Still dyspneic and wheezing however. She lives independently in [place]. She tells me this is going well. She was hospitalized here in July. Echocardiogram at that time showed preserved LV function with ejection fraction of 60 65%, mildly reduced right ventricular function, moderate aortic stenosis, moderate mitral regurg, severe pulmonary hypertension with a right pressure of 55 mmHg plus right atrial pressure. She had aggressive diuresis with a weight of 168.6 kg on admission to a weight of 146.2 kg on discharge, 22.4 kg. With this vigorous diuresis her creatinine remained relatively stable at about 1.2. Her BUN did go up to 48 and her CO2 up to 39. Her current proBNP on admission in July was 3370 and on this admission 3250. 12/06/2024: Patient reports that her breathing is a little bit better. She still having some nasal congestion and a little sore throat. She is not aware of any fever. She reports that she is feeling a little stronger and walking short distances in the room. 12/07/2024: Patient is anxious to go home today. She feels like she is close to baseline. She feels comfortable returning to independent living. She has been refusing therapy yesterday. She reports she just wants to rest. I encouraged her to be more active. We talked about smoking cessation. We talked about medication compliance. I reviewed changes in her medications on discharge. Status at Discharge Functional status at discharge: uses cane/walker Time Spent with Patient Time attestation: Total time spent providing and/or coordinating discharge services: Exam Narrative: Exam Narrative: She is alert and appears in no distress breathing room air and sitting in a chair. Respirations with decreased breath sounds throughout. Wheezing has resolved. Air exchange is modestly improved. Cardiovascular: S1, S2, regular rate and rhythm. Abdomen: Bowel sounds active. Abdomen is soft without tenderness. Extremities with mild to moderate nonpitting edema. Good peripheral perfusion. Const: Vital Signs, click to edit/add: Vital Signs - 24 hr 12/06/24 12:47 12/06/24 15:00 12/06/24 15:15 Temperature Pulse Rate 90 Pulse Rate [Bilate ral Radial] Pulse Rate [Pulse Oximeter] 81 97 Respiratory Rate 20 18 Blood Pressure [Ri t Arm] 115/70 Pulse Oximetry 93 Oxygen Delivery Me thod CPAP Oxygen Flow Rate 12/06/24 15:15 12/06/24 15:15 12/06/24 15:30 Temperature 98.1 F Pulse Rate Pulse Rate [Bilate ral Radial] Pulse Rate [Pulse Oximeter] 86 Respiratory Rate 18 18 Blood Pressure [Ri ght Arm] 104/60 Pulse Oximetry 86 L 86 L 91 Oxygen Delivery Me thod Room Air CPAP Room Air CPAP Nasal Cannula CPAP Oxygen Flow Rate 0 1 12/06/24 15:30 12/06/24 15:30 12/06/24 15:35 Temperature 98.1 F Pulse Rate Pulse Rate [Bilate ral Radial] Pulse Rate [Pulse Oximeter] Respiratory Rate 18 Blood Pressure [Ri t Arm] Pulse Oximetry 91 91 Oxygen Delivery Me thod Nasal Cannula Nasal Cannula CPAP Oxygen Flow Rate 1 1 12/06/24 19:25 12/06/24 23:20 12/06/24 23:20 Temperature 98.1 F Pulse Rate Pulse Rate [Bilate ral Radial] 90 Pulse Rate [Pulse Oximeter] 93 Respiratory Rate 16 18 18 Blood Pressure [Ri ght Arm] 126/72 Pulse Oximetry 89 90 Oxygen Delivery Me thod Nasal Cannula CPAP Nasal Cannula CPAP Oxygen Flow Rate 0.5 0.5 12/06/24 23:20 12/07/24 01:23 12/07/24 03:15 Temperature Pulse Rate 99 Pulse Rate [Bilate ral Radial] Pulse Rate [Pulse Oximeter] 90 74 Respiratory Rate 18 18 Blood Pressure [Ri ght Arm] 124/83 123/78 Pulse Oximetry 90 88 Oxygen Delivery Me thod Nasal Cannula CPAP Nasal Cannula CPAP Oxygen Flow Rate 0.5 0.5 12/07/24 07:00 12/07/24 07:00 12/07/24 07:00 Temperature Pulse Rate Pulse Rate [Bilate ral Radial] Pulse Rate [Pulse Oximeter] 90 70 Respiratory Rate 20 20 20 Blood Pressure [Ri ght Arm] 130/99 H Pulse Oximetry 90 90 Oxygen Delivery Me thod Room Air Room Air Oxygen Flow Rate 0.5 12/07/24 11:00 Temperature 98.1 F Pulse Rate Pulse Rate [Bilate ral Radial] Pulse Rate [Pulse Oximeter] 70 Respiratory Rate 20 Blood Pressure [Ri ght Arm] 103/81 Pulse Oximetry 90 Oxygen Delivery Me thod Room Air Oxygen Flow Rate DS: Data Data Completed and Pending Completed studies during hospitalization: Procedures Drainage of Bladder with Drainage Device, Via Natural or Artificial Opening (04/09/23) Introduction of Other Gas into Respiratory Tract, Via Natural or Artificial Opening (04/09/23) Introduction of Other Therapeutic Substance into Respiratory Tract, Via Natural or Artificial Opening (08/24/24) Labs on day of discharge: Labs from last 24 hours 12/07/24 06:05 WBC 11.83 H RBC 5.21 H Hgb 16.1 H Hct 50.7 MCV 97 MCH 31 MCHC 32 RDW Coeff of Aby 15.3 Plt Count 201 Neut % (Auto) 88.5 H Lymph % (Auto) 6.0 L Dauphin % (Auto) 4.8 Eos % (Auto) 0.0 Baso % (Auto) 0.1 Neut # (Auto) 10.50 H Lymph # (Auto) 0.70 L Da[place]hin # (Auto) 0.60 Eos # (Auto) 0.00 Baso # (Auto) 0.00 Abs Immat Gran (auto) 0.10 Imm/Tot Granulo (auto) 0.6 INR 1.74 H VBG pH 7.374 VBG pCO2 64 H* VBG pO2 40.2 VBG HCO3 37 H Sodium 138 Potassium 4.2 Chloride 96 Carbon Dioxide 35 H Anion Gap 7 BUN 60 H Creatinine 1.3 Estimated Creat Clear 35.54 Estimated GFR 43 Glucose 260 H Calcium 8.1 L Preliminary micro results at discharge 12/05/24 00:00 Blood Culture - Preliminary Blood NO GROWTH AFTER 48 HOURS 12/04/24 23:35 Blood Culture - Preliminary Blood NO GROWTH AFTER 48 HOURS Imaging Chest x-ray: Radiologist's impression: INDICATION: Cough, shortness of breath, wheezing.. TECHNIQUE: Chest 1 views. COMPARISON: August 24, 2024. FINDINGS: Cardiovascular and mediastinum: Stable cardiomegaly with vascular congestion. Unchanged left chest wall pacemaker device. Lungs and pleural spaces: Mild pulmonary edema. No sign of infiltrate or mass. No sign of significant pleural effusion. No pneumothorax. Bones and soft tissues: No significant findings. IMPRESSION: Stable cardiomegaly with vascular congestion and mild pulmonary edema. Discharge Plan Discharge Disposition: Home, Self-Care Date of Admission: 12/05/24 08:24 Attending Provider on Discharge: Lavelle Morales Primary Care Provider: Amarilis Rincon Condition: Improved Anticipated Discharge Date/Time: 12/07/24 11:00 Discharge Medications: New prednisone 20 mg Tablet 40 mg PO DAILYWM Qty: 6 0RF doxycycline hyclate 100 mg Tablet 100 mg PO BID Qty: 6 0RF ipratropium-albuterol 0.5 mg-3 mg(2.5 mg base)/3 mL Solution For Nebulization 2.5 ml inhalation QID Qty: 120 0RF nicotine 21 mg/24 hr Patch 24 Hour 1 patch transdermal Q24H Qty: 28 0RF Continued atorvastatin 80 mg tablet 80 mg PO HS diltiazem HCl 240 mg capsule,extended release 24hr 240 mg PO DAILY metoprolol succinate 200 mg tablet extended release 24 hr 200 mg PO DAILY bumetanide 1 mg tablet 2 mg PO BID@09,16 albuterol sulfate 90 mcg/actuation HFA aerosol inhaler 2 puff INHALATION Q4H PRN (Reason: dyspnea) insulin glargine [Lantus Solostar U-100 Insulin] 100 unit/mL (3 mL) insulin pen 25 unit subcut HS acetaminophen [Tylenol Extra Strength] 500 mg tablet 1,000 mg PO Q8H PRN cholecalciferol (vitamin D3) 25 mcg (1,000 unit) capsule 25 mcg PO DAILY potassium chloride 20 mEq tablet extended release 40 meq PO BID warfarin 2.5 mg tablet 2.5 - 3.75 mg PO QPM Qty: 45 0RF Rx Instructions: 3.75mg every other day alternating with 2.5 mg every other day metolazone 2.5 mg tablet 5 mg PO DAILY PRN nystatin 100,000 unit/gram cream 1 applic topical BID PRN nystatin 100,000 unit/gram powder 1 applic topical QID PRN Jardiance 25 mg tablet 25 mg PO DAILY gabapentin 300 mg capsule 300 - 600 mg PO BID Rx Instructions: 300mg am, 600mg hs Discharge Orders: Discharge Order (Routine); Ordered 12/07/24 Ordered By: Lavelle Morales Patient Education: Doxycycline (By mouth), Prednisone (By mouth), Nicotine (Absorbed through the skin), Ipratropium/Albuterol (By breathing), Heart Failure (DC), COPD (Chronic Obstructive Pulmonary Disease) (DC), Chronic Respiratory Failure (GEN), Acute Respiratory Failure (GEN) Additional Instructions: It is very important for you to stop smoking. I have prescribed nicotine patches to help with this. Check your weight every day and record your weight. Let your providers know if your weight is increasing 2 lb in a day or 5 lb in a week. I have made several changes to her medications: Increase warfarin to 3.75 mg every other day alternating with 2.5 mg every other day. (Previously you were taking 3.75 mg only on and 2.5 mg all other days.) You will need an INR check as well as other lab tests done in 5 or 6 days. I would like you to do nebulizer treatments 4 times a day until follow-up appointment. You will be taking prednisone and doxycycline for 3 more days. Resume home care and home lymphedema therapy. Lab tests to be drawn in 5 or 6 days: INR and basic metabolic panel Activity Level: Activity as Tolerated and Use Walker Discharge Diet: Heart Healthy (2 gm sodium, low fat) Follow Up Appointments: Jacquie Haley [Other] Referral Note: Appointment in 5 or 6 days INR and basic metabolic panel in 5 or 6 days Patient will make her own appointment. Amarilis Rincon MD [Primary Care Provider, Family Practice] Provider,Not a Local [Non-Staff, Family Practice] Forms: [employer] Info Instructions
--- NOTE | 2024-12-07 13:24 | PC.NURSE ---
Discharge - Pt alert, oriented, cooperative. Up with standby assistance and walker/gait belt. Tolerating RA and regular diet/fluids. Pt denied pain, SOB, n/v. External female catheter removed. Pt verbalized understanding of d/c education. D/C to home via wheelchair with family member at approximately 1307.
== END 2024-12-07 13:07 | disposition home or self-care (01) | DRG 189 ==
LOC: ED 12-05 01:31 → MEDSURG 12-05 02:24
PROVIDERS: Emergency Medicine; Admitting Provider Family Medicine; Emergency Provider Family Medicine; PCP Family Medicine; Visit Provider Internal Medicine
DX: J96.21 Acute and chronic respiratory failure with hypoxia (principal); L89.613 Pressure ulcer of right heel, stage 3; I50.33 Acute on chronic diastolic (congestive) heart failure; I13.0 Hypertensive heart and chronic kidney disease with heart failure and stage 1 through stage 4 chronic kidney disease, or unspecified chronic kidney disease; J44.0 Chronic obstructive pulmonary disease with (acute) lower respiratory infection; J44.1 Chronic obstructive pulmonary disease with (acute) exacerbation; Z68.43 Body mass index [BMI] 50.0-59.9, adult; J96.22 Acute and chronic respiratory failure with hypercapnia; N18.30 Chronic kidney disease, stage 3 unspecified; I27.20 Pulmonary hypertension, unspecified; J20.9 Acute bronchitis, unspecified; Z79.01 Long term (current) use of anticoagulants; Z79.4 Long term (current) use of insulin; E66.01 Morbid (severe) obesity due to excess calories; I48.0 Paroxysmal atrial fibrillation; E11.22 Type 2 diabetes mellitus with diabetic chronic kidney disease; S81.811A Laceration without foreign body, right lower leg, initial encounter; I08.0 Rheumatic disorders of both mitral and aortic valves; E11.65 Type 2 diabetes mellitus with hyperglycemia; E11.42 Type 2 diabetes mellitus with diabetic polyneuropathy; G47.33 Obstructive sleep apnea (adult) (pediatric); F17.210 Nicotine dependence, cigarettes, uncomplicated; Z79.84 Long term (current) use of oral hypoglycemic drugs; E11.621 Type 2 diabetes mellitus with foot ulcer
CPT/HCPCS: 36415; 71045; 80048; 82803; 82962; 83036; 83605; 83735; 83880; 84484; 85025; 85610; 87040; 87631; 93005; 94640; 94761; 97161; 97166; 97530; 97535; 99281; 99284; 99285; A9270; J0696; J1815; J1938; J2919; J7512; S4990

== ENCOUNTER 2024-12-08 14:41 | Inpatient (IN) | payer MEDICARE, SELFPAY ==
--- OUTSIDE RECORDS SUMMARY | 2024-11-01 05:53 | XMS_ITS | Encounter Summary ---
Author Organization [place] Address [address] [place] [address] Care Team Providers Care Control Manager Name Role Phone Lexie Bose FINAL BLOCK PRESS OPERATOR PAINTER TUMBLING BARREL Unavailable [phone] Viviane Pacheco FINAL BLOCK PRESS OPERATOR PAINTER TUMBLING BARREL Unavailable [phone] Genevieve Puentes NP Unavailable [phone] Tin Mckenzie MD Unavailable [phone] Amarilis Rincon MD Primary Care Provider + [phone] Mauricio New MD Unavailable [phone] Sheila Lara MD Unavailable Reason for Visit * Auth/Cert Specialty Diagnoses / Procedures Referred By Otoniel t Referred To Contact Cardiology Diagnoses Cardiac pacemaker in situ Atrial fibrillation with RVR (H) Congestive heart failure, unspecified HF chronicity, unspecified heart failure type (H) PH Procedures ZZHC RIGHT HEART CATH O2 SATURATION & CARDIAC OUTPUT TN RIGHT HEART CATH O2 SATURATION & CARDIAC OUTPUT Right Heart Catheterization [facility] Heart Care [address] [address] Phone: tel: Referral ID Status Reason Start Date Expiration Date Visits Re quested Visits Authorized [id number] 1 1 Encounter Details Date Type Department Care Team (Latest Contact Info) Description 11/01/2024 5:53 AM CDT - 11/01/2024 10:35 AM CDT Hospital Encounter [facility] [address] [address] Sheila Lara MD [address] [facility] [address] [address] Acute decompensated heart failure (H) (Primary Dx); [...] stops, sit still for 2 hours. Call [facility] Clinic as soon as you can Call 911 right away if you have heavy bleeding or bleeding that does not stop. Medicines: If you are taking an antiplatelet medication such as Plavix, Brilinta or Effient, do not stop taking it until you talk to your data integrity consultant. If you are on Metformin (Glucophage), do [...] them. Follow Up Appointments: Follow up with [facility] Heart Nurse Practitioner at [facility] Heart Clinic of patient preference in [...] or unusual itching. Any questions or concerns. [facility] at [place]: [phone] [facility] (7 days a week) Or you [...] 200 mg by mouth daily nystatin (MYCOSTATIN) [id number] UNIT/GM external cream Apply topically 2 times [...] reviewed: Yes Additional education/resources provided: None Patient/patient pest control service representative verbalizes understanding: Yes Patient discharging [...] regurgitation from above. Patient was recently at [facility]. Underwent nearly 40 pounds of diuresis. [...] right internal jugular vein. Through that a [place]-Jeana catheter was inserted into the right heart and serial measurements were obtained in the pulmonary capillary wedge, pulmonary artery, right ventricle and right atrial positions. Pulmonary arterial saturations were obtained for Napoleon cardiac index calculation. [place] was pulled out and manual compression was done for hemostasis at the access site. No immediate complications. The attending sharemilker was present and supervised all critical aspects the procedure. Recommendations Follow-up in heart failure clinic. us Sheila Lara MD CV CARDIAC CATH ORDERABLES Final Result * (ABNORMAL) iStat Gases (lactate) venous, POCT (11/01/2024 8:56 AM CDT) [facility] Lactic Acid POCT 0.9 0.7 - 2.0 [...] - BEAKER POCT Final Result LABORATORY POC [facility] Acute Care Lab [address] 1[address] floor, [address] [place] [address], [facility] * EKG 12-lead, tracing only (11/01/2024 7:11 AM CDT) Systolic Blood Pressure mmHg RADIOLOGY RESULTS Diastolic Blood Pressure mmHg RADIOLOGY RESULTS Ventricular Rate 91 BPM RAD IOLOGY RESULTS Atrial Rate 227 BPM RADIOLOG Y RESULTS TN Interval ms RADIOLOG Y RESULTS QRS Duration 78 ms RADIOLO GY RESULTS QT 390 ms RADIOLOGY RESULTS QTc 479 ms RADIOLOGY RESULTS P [place] degrees RADIOLOGY RESULTS R AXIS 220 degrees RADIOLOGY RESULTS T [place] 50 degrees RADIOLOGY RESULTS Interpretation ECG Atrial [...] Edited Result - Final Performing Organization Address City/[facility]/ZIP Co de Phone Number RADIOLOGY RESULTS * Partial thromboplastin time (11/01/2024 7:01 AM CDT) aPTT 28 22 - 38 Seconds 11/01/2024 8:12 AM CDT LABORATORY Blood BLOOD SPECIMEN / Unknown Venipuncture / Unknown 11/01/2024 7:01 AM CDT 11/01/2024 7:13 AM CDT Sheila Lara MD LAB - BLOOD ORDERABLES Final Res ult LABORATORY [facility] Care Lab [address] 1[address] floor, [address] [place] [address], [place] [phone] * INR (11/01/2024 7:01 AM CDT) Pathologist [facility] INR 1.15 0.85 - 1.15 11/01/2024 7:42 AM CDT LABORATORY PT 14.5 11.8 - 14.8 Seconds 11/01/2024 7:42 AM CDT LABORATORY Blood BLOOD SPECIMEN / Unknown Venipuncture / Unknown 11/01/2024 7:01 AM CDT 11/01/2024 7:13 AM CDT us Sheila Lara MD LAB - BLOOD ORDERABLES Final Res ult LABORATORY [facility] Acute Care Lab [address] floor, [address] [place] [address], [facility] [phone] * (ABNORMAL) CBC with platelets (11/01/2024 7:01 AM CDT) [facility] WBC Count 8.7 4.0 - 11.0 10e3/uL [...] - BLOOD ORDERABLES Final Res ult LABORATORY [facility] Acute Care Lab [address] floor, [address] [place] [address], [facility] [phone] * (ABNORMAL) Basic metabolic panel (11/01/2024 7:01 AM CDT) Sodium 139 135 - 145 mmol/L 11/01/2024 7:44 AM [facility] Potassium 3.9 3.4 - 5.3 mmol/L 11/01/2024 7:44 AM [facility] Chloride 95(L) 98 - 107 mmol/L 11/01/2024 7:44 AM [facility] Carbon Dioxide (CO2) 30(H) 22 - 29 mmol/L 11/01/2024 7:44 AM [facility] Anion Gap 14 7 - 15 mmol/L 11/01/2024 7:44 AM [facility] Urea Nitrogen 33.6(H) 8.0 - 23.0 mg/dL 11/01/2024 7:44 AM T LABORATORY Creatinine 1.44(H) 0.51 - 0.95 mg/dL 11/01/2024 7:44 AM T LABORATORY GFR Estimate 38(L) >60 mL/min/1.7 3m2 11/01/2024 7:44 AM [facility] Comment:eGFR calculated usin 2020 CKD-EPI equation. Calcium 8.7(L) 8.8 - 10.4 mg/dL 11/01/2024 7:44 AM T LABORATORY Glucose 239(H) 70 - 99 mg/dL 11/01/2024 7:44 AM [facility] Blood BLOOD SPECIMEN / Unknown Venipuncture / Unknown 11/01/2024 7:01 AM CDT 11/01/2024 7:13 AM CDT us Sheila Lara MD LAB - BLOOD ORDERABLES Final Res ult [facility] Acute Care Lab [address] floor, [address] [place] [address], [place] [phone] documented in this encounter Visit Diagnoses Diagnosis [...] IV for 2 hours prior to cardiac medical laboratory technologist procedure, then titrate per procedure [...] IV for 2 hours prior to cardiac medical laboratory technologist procedure, then titrate per procedure [...] 0900 documented in this encounter Care Teams Control Manager Relationship Specialty Start Date End Date Amarilis Rincon MD [address] [place] [address] PCP - General Family Practice 02/11/24 Lexie Bose APRN PAINTER TUMBLING BARREL [address] [id number] Nurse Practitioner Cardiovascular Disease 07/01/22 Viviane Pacheco APRN PAINTER TUMBLING BARREL [address] [id number] Nurse Practitioner Cardiovascular Disease 07/16/22 Genevieve Puentes NP [address] [id number] Nurse Practitioner Cardiology 07/25/22 Tin Mckenzie MD [address] [id number] Cardiovascular Disease 11/04/22 Mauricio New MD [address] [place] [id number] Assigned Surgical Provider 10/19/24 Sheila Lara MD [address] 684[address] Assigned Heart and Vascular Provider 10/19/24 documented as of this encounter
--- OUTSIDE RECORDS SUMMARY | 2024-11-01 08:30 | XMS_ITS | Encounter Summary ---
Author Organization [facility] Address [address] [place] [address] Care Team Providers Care Toll Collector Supervisor Name Role Phone Lexie Bose MECHANIC SOUND TECHNICIAN MAINTENANCE PLANNING CLERK Unavailable [phone] Viviane Pacheco MECHANIC SOUND TECHNICIAN MAINTENANCE PLANNING CLERK Unavailable [phone] Genevieve Puentes NP Unavailable [phone] Tin Mckenzie MD Unavailable [phone] Amarilis Rincon MD Primary Care Provider + [phone] Mauricio New MD Unavailable [phone] Sheila Lara MD Unavailable Reason for Visit * Auth/Cert Specialty Diagnoses / Procedures Referred By Otoniel t Referred To Contact Cardiology Diagnoses Cardiac pacemaker in situ Atrial fibrillation with RVR (H) Congestive heart failure, unspecified HF chronicity, unspecified heart failure type (H) PH Procedures [facility] RIGHT HEART CATH O2 SATURATION & CARDIAC OUTPUT FL RIGHT HEART CATH O2 SATURATION & CARDIAC OUTPUT Right Heart Catheterization [facility] [address] [phone] Phone: tel: Referral ID Status Reason Start Date Expiration Date Visits Re quested Visits Authorized [id number] 1 1 Encounter Details Date Type Department Care Team (Late st Contact Info) Description 11/01/2024 8:30 AM CDT - 11/01/2024 9:30 AM CDT Surgery [facility] Heart [facility] [address] [phone] Sheila Lara MD [address] [place] [address] Right Heart Catheterization Surgery Details Date/Time Status Location OR Service Patient Class Case Class Case Type Trauma Case? 11/01/2024 8:30 AM Posted HEART CARDIAC RESEARCH QUALITY ASSURANCE ANALYST Checkroom Attendant 3 Cardiology Outpatient Panel 1 Procedure LRB [...] stops, sit still for 2 hours. Call [facility] Clinic as soon as you can Call 911 right away if you have heavy bleeding or bleeding that does not stop. Medicines: If you are taking an antiplatelet medication such as Plavix, Brilinta or Effient, do not stop taking it until you talk to your help desk agent. If you are on Metformin (Glucophage), do [...] them. Follow Up Appointments: Follow up with [facility] Heart Nurse Practitioner at [facility] Heart Clinic of patient preference in 7-10 [...] or unusual itching. Any questions or concerns. [facility] at [place]: [phone] [facility] (7 days a week) Or you may [...] 200 mg by mouth daily nystatin (MYCOSTATIN) 108242 UNIT/GM external cream Apply topically 2 times [...] reviewed: Yes Additional education/resources provided: None Patient/patient apparel trimmings sales representative verbalizes understanding: Yes Patient discharging on [...] regurgitation from above. Patient was recently at [facility]. Underwent nearly 40 pounds of diuresis. [...] right internal jugular vein. Through that a Denton-Jeana catheter was inserted into the right heart and serial measurements were obtained in the pulmonary capillary wedge, pulmonary artery, right ventricle and right atrial positions. Pulmonary arterial saturations were obtained for Napoleon cardiac index calculation. Denton was pulled out and manual compression was done for hemostasis at the access site. No immediate complications. The attending supervisor motor vehicle assembly was present and supervised all critical aspects the procedure. Recommendations Follow-up in heart failure clinic. Sheila Lara MD CV CARDIAC CATH ORDERABLES Final Result * (ABNORMAL) iStat Gases (lactate) venous, POCT (11/01/2024 8:56 AM CDT) [facility] Lactic Acid POCT 0.9 0.7 - [...] - BEAKER POCT Final Result LABORATORY POC [facility] Acute Care Lab [address], [address] [place] [address] * EKG 12-lead, tracing only (11/01/2024 7:11 AM CDT) Systolic Blood Pressure mmHg RADIOLOGY RESULTS Diastolic Blood Pressure mmHg RADIOLOGY RESULTS Ventricular Rate 91 BPM RAD IOLOGY RESULTS Atrial Rate 227 BPM RADIOLOG Y RESULTS FL Interval ms RADIOLOG Y RESULTS QRS Duration 78 ms RADIOLO GY RESULTS QT 390 ms RADIOLOGY RESULTS QTc 479 ms RADIOLOGY RESULTS P Sig[place] degrees RADIOLOGY RESULTS R AXIS 220 degrees RADIOLOGY RESULTS T [place] 50 degrees RADIOLOGY RESULTS Interpretation ECG Atrial [...] - BLOOD ORDERABLES Final Res ult LABORATORY [facility] Lab [address] 1[address] floor, [address] [place] [address], [facility] [phone] * INR (11/01/2024 7:01 AM CDT) Pathologist [facility] INR 1.15 0.85 - 1.15 11/01/2024 7:42 AM CDT LABORATORY PT 14.5 11.8 - 14.8 Seconds 11/01/2024 7:42 AM CDT LABORATORY Blood BLOOD SPECIMEN / Unknown Venipuncture / Unknown 11/01/2024 7:01 AM CDT 11/01/2024 7:13 AM CDT Sheila Lara MD LAB - BLOOD ORDERABLES Final Res ult LABORATORY [facility] Lab [address], [address] [place] [address], [facility] [phone] * (ABNORMAL) CBC with platelets (11/01/2024 7:01 AM CDT) [facility] WBC Count 8.7 4.0 - 11.0 [...] 10.0 - 15.0 % 11/01/2024 7:18 AM [facility] LABORATORY Platelet Count 209 150 - 450 10e3/uL 11/01/2024 7:18 AM [facility] LABORATORY Blood BLOOD SPECIMEN / Unknown Venipuncture / Unknown 11/01/2024 7:01 AM CDT 11/01/2024 7:13 AM T us Sheila Lara MD LAB - BLOOD ORDERABLES Final Res ult LABORATORY [facility] Acute Care Lab [address], [address] [place] [address], [facility] [phone] * (ABNORMAL) Basic metabolic panel (11/01/2024 7:01 AM CD) Sodium 139 135 - 145 mmol/L 11/01/2024 7:44 AM [facility] LABORATORY Potassium 3.9 3.4 - 5.3 mmol/L 11/01/2024 7:44 AM [facility] LABORATORY Chloride 95(L) 98 - 107 mmol/L 11/01/2024 7:44 AM [facility] LABORATORY Carbon Dioxide (CO2) 30(H) 22 - 29 mmol/L 11/01/2024 7:44 AM [facility] LABORATORY Anion Gap 14 7 - 15 mmol/L 11/01/2024 7:44 AM [facility] LABORATORY Urea Nitrogen 33.6(H) 8.0 - 23.0 mg/dL 11/01/2024 7:44 AM [facility] LABORATORY Creatinine 1.44(H) 0.51 - 0.95 mg/dL 11/01/2024 7:44 AM [facility] LABORATORY GFR Estimate 38(L) >60 mL/min/1.7 3m2 11/01/2024 7:44 AM [facility] LABORATORY Comment:eGFR calculated usin g 2020 CKD-EPI equation. Calcium 8.7(L) 8.8 - 10.4 mg/dL 11/01/2024 7:44 AM [facility] LABORATORY Glucose 239(H) 70 - 99 mg/dL 11/01/2024 7:44 AM CDT LABORATORY Blood BLOOD SPECIMEN / Unknown Venipuncture / Unknown 11/01/2024 7:01 AM CDT 11/01/2024 7:13 AM CDT us Sheila Lara MD LAB - BLOOD ORDERABLES Final Res ult LABORATORY [facility] Acute Care Lab [address], [address] [place] [address], [facility] [phone] documented in this encounter Visit Diagnoses Diagnosis [...] for 2 hours prior to cardiac laboratory tech procedure, then titrate per procedure MD to [...] for 2 hours prior to cardiac laboratory tech procedure, then titrate per procedure MD to [...] 0900 documented in this encounter Care Teams Toll Collector Supervisor Relationship Specialty Start Date End Date Amarilis Rnicon MD [address] [place] [address] PCP - General Family Practice 02/11/24 Lexie Bose, MECHANIC SOUND TECHNICIAN MAINTENANCE PLANNING CLERK [address] [place] [phone] Nurse Practitioner Cardiovascular Disease 07/01/22 Viviane Pacheco, MECHANIC SOUND TECHNICIAN MAINTENANCE PLANNING CLERK [address] [place] [phone] Nurse Practitioner Cardiovascular Disease 07/16/22 Genevieve Puentes NP [address] [place] [phone] Nurse Practitioner Cardiology 07/25/22 Tin Mckenzie MD [address] [place] [address] Cardiovascular Disease 11/04/22 Mauricio New MD [address] [place] [address] Assigned Surgical Provider 10/19/24 Sheila Lara MD [address] [place] [address] Assigned Heart and Vascular Provider 10/19/24 documented as of this encounter
[2024-12-08] VITALS (40 sets, daily range): BP systolic 99–145; BP diastolic 52–113; PULSE 95–125; RESP 20–62; TEMP 36–36.7; O2SAT 80–100; BMI 52.6; BMI 52.7
--- OUTSIDE RECORDS SUMMARY | 2024-12-08 14:43 | XMS_ITS | Encounter Summary ---
Author Organization [facility] Address [address] [place] [id number] Care Team Providers Care Resident Physician Name Role Phone Lexie Bose POTTERY MACHINE OPERATOR [employer] Unavailable [phone] Viviane Pacheco POTTERY MACHINE OPERATOR [employer] Unavailable [phone] Genevieve Puentes NP Unavailable [phone] Tin Mckenzie MD Unavailable [phone] Amarilis Rincon MD Primary Care Provider + [phone] Mauricio New MD Unavailable [phone] Sheila Lara MD Unavailable Reason for Visit * Reason Onset Date Comments Appointment 08/18/2024 Re-schedule 08/18 appt. Encounter Details Date Type Department Care Team (Late st Contact Info) Description 08/18/[address] [facility] Heart [address] [place] [address] Jair Craft MD Appointment (Re-schedule [...] you! [facility] Date of Service: GER INPATIENT documented in this encounter Plan of Treatment Not on file documented as of this encounter Visit Diagnoses Not on filedocumented in this encounter Care Teams Resident Physician Relationship Specialty Start Date End Date Amarilis Rincon MD [address] [place], [place] [id number] PCP - General Family Practice 02/11/24 Lexie Bose APRN [employer] [address] [place] [address] Nurse Practitioner Cardiovascular Disease 07/01/22 Viviane Pacheco APRN [employer] [address] [id number] Nurse Practitioner Cardiovascular Disease 07/16/22 Genevieve Puentes NP [address] [id number] Nurse Practitioner Cardiology 07/25/22 Tin Mckenzie MD [address] [place] [id number] Cardiovascular Disease 11/04/22 Mauricio New MD [address] [place] [address] Assigned Surgical Provider 10/19/24 Sheila Lara MD [address] [facility] [address] [place] [address] Assigned Heart and Vascular Provider 10/19/24 documented as of this encounter
--- OUTSIDE RECORDS SUMMARY | 2024-12-08 14:43 | XMS_ITS | Clinical Summary ---
Author Organization [place] Address [address] [place] [address] Care Team Providers Care Bulb Planter Name Role Phone Lexie Bose CRM MARKETING MANAGER HOUSING INSTALLER Unavailable [phone] Viviane Pacheco CRM MARKETING MANAGER HOUSING INSTALLER Unavailable [phone] Genevieve Puentes NP Unavailable [phone] Tin Mckenzie MD Unavailable [phone] Amarilis Rincon MD Primary Care Provider + [phone] Mauricio New MD Unavailable [phone] Sheila Lara MD Unavailable Allergies No known [...] mg by mouth daily Active nystatin (MYCOSTATIN) 599592 UNIT/GM external cream Apply topically 2 times [...] Type Department Care Team Description 12/01/[address] [facility] [address] [facility] [address] [place] [phone] Sheila Lara MD 11/09/2024 Telephone [facility] [address] [facility] [address] [place] [phone] None Appointment (Cancel 11/09 Hospital F/U) 11/02/[address] [facility] [address] [facility] [address] [place] [phone] Candice Sanchez, RN Clinic Care Coordination - Post Hospital (Post discharge phone call) 11/01/2024 8:30 AM CDT - 11/01/2024 9:[address] [facility] [address] [phone] Sheila Lara MD Right Heart Catheterization 11/01/2024 5:53 AM CDT - 11/01/2024 10:35 AM CDT Hospital Encounter [facility] [address] [phone] Sheila Lara MD Acute decompensated heart failure (H) (Primary Dx); Cardiac pacemaker in situ; Atrial fibrillation with RVR (H); Congestive heart failure, unspecified HF chronicity, unspecified heart failure type (H) Discharge Disposition: Home or Self Care 10/31/2024 Telephone [facility] [address] [place] [phone] Gudelia Mancera, RN Pt. Information/instructi on 10/26/[address] [facility] [address] [facility] [address] [place] [phone] Renée Bobby, ARIELLA Pt. Information/instructi on (RHC prep) 10/07/2024 Telephone [place] [address] [facility] [address] [place] [phone] Sheila Lara MD Call Back (Medication Question ) 10/03/2024 1:00 PM CDT Office Visit [facility] Surgery [facility] [address] [place] [phone] Mauricio New MD Hip mass, left; Hip mass, right 10/03/2024 11:15 AM CDT Office Visit [facility] [address] [facility] [address] [place] [phone] Sanjay Harrington MD Vakil, Kairav, MD Cardiac [...] this topic Medical Devices Implanted Type Area Cashier Supervisor Device Identifier Shelf Expiration Date Model / Serial / Lot Lead Ingevity+ Af Is1 7842 59cm - [id number] Implanted:Qty: 1 on 06/23/[address] [facility] [employer]s [employer] 05/04/2024 [id number] / [id number] / [id number] Pacemaker Accolade Sr Mri - [id number] Implanted:Qty: 1 on 06/23/[address] [facility] Pacemaker [employer] 10/17/2023 [id number] / [id number] / [id number] Procedures Procedure Name Priority Date/Time Associated Diagnosis [...] from above. Patient was recently at [facility]. Underwent nearly 40 pounds of [...] right internal jugular vein. Through that a Morse-Jeana catheter was inserted into the right heart and serial measurements were obtained in the pulmonary capillary wedge, pulmonary artery, right ventricle and right atrial positions. Pulmonary arterial saturations were obtained for Napoleon cardiac index calculation. Morse was pulled out and manual compression was done for hemostasis at the access site. No immediate complications. The attending mobile application engineer was present and supervised all critical aspects [...] 8:59 AM CDT us Sheila Lara MD [facility] POCT Final Result LABORATORY POC [facility] Acute [facility] Lab [address] 1st floor, Room [address] [place] [address] * EKG 12-lead, tracing only (11/01/2024 7:11 AM CDT) Systolic Blood Pressure mmHg RADIOLOGY RESULTS Diastolic Blood Pressure mmHg RADIOLOGY RESULTS Ventricular Rate 91 BPM RAD IOLOGY RESULTS Atrial Rate 227 BPM RADIOLOG Y RESULTS AL Interval ms RADIOLOG Y RESULTS QRS Duration 78 ms RADIOLO GY RESULTS QT 390 ms RADIOLOGY RESULTS QTc 479 ms RADIOLOGY RESULTS P [place] degrees RADIOLOGY RESULTS R AXIS 220 degrees RADIOLOGY RESULTS T [place] 50 degrees RADIOLOGY RESULTS Interpretation ECG Atrial [...] ORDERABLES Final Res ult Performing Organization Address City/[facility]/ZIP Co de Phone Number LABORATORY [facility] [address] 1st floor, Room [address] [place] [address], [facility] [phone] * Partial thromboplastin time (11/01/2024 7:01 AM CDT) aPTT 28 22 - 38 Seconds 11/01/2024 8:12 AM CDT LABORATORY Blood BLOOD SPECIMEN / Unknown Venipuncture / Unknown 11/01/2024 7:01 AM CDT 11/01/2024 7:13 AM CDT us Sheila Lara MD LAB - BLOOD ORDERABLES Final Res ult Performing Organization Address City/[facility]/ZIP Co de Phone Number LABORATORY [facility] [address] 1[address] floor, Room [address] [place] [address], [place] [phone] * (ABNORMAL) Basic metabolic panel (11/01/2024 7:01 AM CDT) Pathologist [facility] Sodium 139 135 - 145 mmol/L 11/01/2024 [...] - BLOOD ORDERABLES Final Res ult LABORATORY [facility] Lab [address] 1[address] floor, Room [address] [place] [address], [facility] [phone] * (ABNORMAL) CBC with platelets (11/01/2024 7:01 AM CDT) [facility] WBC Count 8.7 4.0 - 11.0 10e3/uL [...] - BLOOD ORDERABLES Final Res ult LABORATORY [facility] Lab [address] 1st floor, Room [address] [place] [address], [facility] [phone] * EKG 12-lead complete w/read - Clinics [...] mg/dL 02/10/2024 3:54 PM CDT LABORATORY Specific [place] Urine 1.024 1.003 - 1.035 02/10/2024 3:54 [...] - URINE ORDERABLES Zulma albarado Result LABORATORY [facility] [address] 1[address] floor, Room [address] [place] [address], [facility] [phone] * TSH with free T4 reflex (02/10/2024 3:21 PM CDT) TSH 1.10 0.30 - 4.20 uIU/mL 02/10/2024 4:11 PM CDT LABORATORY Blood BLOOD SPECIMEN / Unknown Venipuncture / Unknown 02/10/2024 3:21 PM CDT 02/10/2024 3:29 PM CDT Sera White MD LAB - BLOOD ORDERABLES Zulma albarado Result LABORATORY [facility] [address] 1[address] floor, [address] [place] [address], [facility] [phone] * (ABNORMAL) Hemoglobin A1c (02/12/2023 8:34 AM CDT) Hemoglobin A1C 6.2(H) <5.7 % 02/12/2023 9:11 AM CDT LABORATORY Comment: Normal <5.7% Prediabetes 5.7-6.4% Diabetes 6.5% or higher Note: Adopted from ADA consensus guidelines. Blood STRUCTURE OF LEFT HAND / Unknown Venipuncture / Unknown 02/12/2023 8:34 AM CDT 02/12/2023 8:43 AM CDT Corona Irizarry MD, MD LAB - BLOOD ORDERABLES Geovany al Result LABORATORY [facility] Lab [address] Lab (1st floor, no room number) [place] [address], [place] [phone] from Last 3 Months or Most Recently Relevant to Health Maintenance Insurance [facility] MEDICARE [facility] MEDIC[facility] Advance Directives For more information, please contact: [phone] * Full Code (Latest Code Status on [...] patie nt/ legal decision maker Care Teams Bulb Planter Relationship Specialty Start Date End Date Amarilis Rincon MD [address] [place], [place] [id number] PCP - General Family Practice 02/11/24 Lexie Bose APRN HOUSING INSTALLER [address] [place] [address] Nurse Practitioner Cardiovascular Disease 07/01/22 Viviane Pacheco APRN HOUSING INSTALLER [address] [place] [id number] Nurse Practitioner Cardiovascular Disease 07/16/22 Genevieve Puentes NP [address] [id number] Nurse Practitioner Cardiology 07/25/22 Tin Mckenzie MD [address] [place] [id number] Cardiovascular Disease 11/04/22 Mauricio New MD [address] [place] [address] Assigned Surgical Provider 10/19/24 Sheila Lara MD [address] [place] [id number] Assigned Heart and Vascular Provider 10/19/24
--- OUTSIDE RECORDS SUMMARY | 2024-12-08 14:44 | XMS_ITS | Encounter Summary ---
Author Organization [place] Address [address] [place] [address] Care Team Providers Care Battery Assembler Dry Cell Name Role Phone Lexie Bose SUPERVISOR NET MAKING CURRICULUM CONSULTANT Unavailable [phone] Viviane Pacheco APRN CURRICULUM CONSULTANT Unavailable [phone] Genevieve Puentes NP Unavailable [phone] Tin Mckenzie MD Unavailable [phone] Amarilis Rincon MD Primary Care Provider + [phone] Mauricio New MD Unavailable [phone] Sheila Lara MD Unavailable Reason for Visit * Reason Onset Date Comments Appointment 11/09/2024 Cancel 11/09 Hosp ital F/U Encounter Details Date Type Department Care Team (Late st Contact Info) Description 11/09/[address] [place] [address] None Appointment (Cancel 11/09 Hospital [...] on filedocumented in this encounter Care Teams Battery Assembler Dry Cell Relationship Specialty Start Date End Date Amarilis Rincon MD [address] [place] [address] PCP - General Family Practice 02/11/24 Lexie Bose APRN CURRICULUM CONSULTANT [address] [place] 656[address] Nurse Practitioner Cardiovascular Disease 07/01/22 Viviane Pacheco APRN CURRICULUM CONSULTANT [address] [address] Nurse Practitioner Cardiovascular Disease 07/16/22 Genevieve Puentes NP [address] [place] [address] Nurse Practitioner Cardiology 07/25/22 Tin Mckenzie MD [address] [place] [address] Cardiovascular Disease 11/04/22 Mauricio New MD [address] [place] [address] Assigned Surgical Provider 10/19/24 Sheila Lara MD [address] [place] [address] Assigned Heart and Vascular Provider 10/19/24 documented as of this encounter
--- OUTSIDE RECORDS SUMMARY | 2024-12-08 14:44 | XMS_ITS | Encounter Summary ---
Author Organization [place] Address [facility] [place] [address] Care Team Providers Care Drilling Foreman Name Role Phone Lexie Bose MANAGER BUILDING DISTRICT PLANT SUPERINTENDENT Unavailable [phone] Viviane Pacheco APRN DISTRICT PLANT SUPERINTENDENT Unavailable [phone] Genevieve Puentes NP Unavailable [phone] Tin Mckenzie MD Unavailable [phone] Amarilis Rincon MD Primary Care Provider + [phone] Mauricio New MD Unavailable [phone] Sheila Lara MD Unavailable Reason for Visit * Reason Onset Date Comments Clinic Care Coordination - Post Hospital 025 Post discharge phone call Encounter Details Date Type Department Care Team (Late st Contact Info) Description 11/02/2024 Telephone [facility] Heart [address] [place] [phone] Candice Sanchez, RN Clinic Care Coordination - [...] 12:52 PM CDT Patient was admitted to [facility] on 11/01/24 for OP right heart catheterization [...] at 1035 with CHRISTY Afsaneh Hessat our [place] Office. Patient advised to call clinic with any cardiac related questions or concerns prior to this christy't. Patient verbalized understanding and agreed with plan. Blanca Sanchez RN. documented in this encounter Plan of Treatment Not on file documented as of this encounter Visit Diagnoses Not on filedocumented in this encounter Care Teams Drilling Foreman Relationship Specialty Start Date End Date Amarilis Rincon MD [address] [place] [address] PCP - General Family Practice 02/11/24 Lexie Bose APRN DISTRICT PLANT SUPERINTENDENT [address] [place] [id number] Nurse Practitioner Cardiovascular Disease 07/01/22 Viviane Pacheco APRN DISTRICT PLANT SUPERINTENDENT [address] 1949[address] Nurse Practitioner Cardiovascular Disease 07/16/22 Genevieve Puentes NP [address] 710565 Nurse Practitioner Cardiology 07/25/22 Tin Mckenzie MD [address] [place] 407415 Cardiovascular Disease 11/04/22 Mauricio New MD [address] [facility] [place] [address] Assigned Surgical Provider 10/19/24 Sheila Lara MD [address] [place] 1229[address] Assigned Heart and Vascular Provider 10/19/24 documented as of this encounter
--- OUTSIDE RECORDS SUMMARY | 2024-12-08 14:44 | XMS_ITS | Encounter Summary ---
Author Organization [place] Address [address] [place] [address] Care Team Providers Care Forest And Conservation Worker Name Role Phone Lexie Bose GAME DESIGNER RESTAURANT SHIFT LEADER Unavailable [phone] Viviane Pacheco GAME DESIGNER RESTAURANT SHIFT LEADER Unavailable [phone] Genevieve Puentes NP Unavailable [phone] Tin Mckenzie MD Unavailable [phone] Amarilis Rincon MD Primary Care Provider + [phone] Mauricio New MD Unavailable [phone] Sheila Lara MD Unavailable Reason for Visit * Reason Comments Pt. Information/instruction RHC prep Encounter Details Date Type Department Care Team (Latest Contact Info) Description 10/26/2024 Care Coordination [facility] Heart [address] [address] Renée Bobby, ARIELLA Pt. Information/instruct [...] scheduled for a Right Heart Cath at [facility] - [address], [place] [address] - Main Entrance of the Hospital on 11/01. Check in time is at 0630 AM and procedure to follow. Performing Lab Animal Technologist: Dr. Lara Patient instructed to remain NPO [...] Day of procedure phone number: Bebe at [phone] Patient is aware of visitor policy. Patient expresses understanding of above instructions and denies further questions at this time. Patient was given nurse team 7 phone [phone] to call during business day hours if questions orconcerns prior. Renée Bobby RN [facility] Heart [facility] ----- Message ----- From: Mitzy Goff Sent: 10/03/2024 1:06 PM CDT To: Mitzy Goff; Zee Rodriguez; Yi Pedroza; * Subject: RHC [place] 11/01/24 Angiogram Orders Location: [facility] - [address] [place] [address] - Main Entrance of the Hospital Procedure: Right Heart Cath Diagnosis: cardiac pacemaker in situ; atrial fibrillation with RVR; PH Procedure Date: 11/01/24 Patient Arrival Time: 630 Procedure Time: 0830 (pending emergency) Ordering Lab Animal Technologist: Dr. Lara Performing Lab Animal Technologist: Dr. Lara Cardiac Assessment Completed: Yes Date: [...] Primary documented in this encounter Care Teams Forest And Conservation Worker Relationship Specialty Start Date End Date Amarilis Rincon MD [address] [place] [address] PCP - General Family Practice 02/11/24 Lexie Bose APRN RESTAURANT SHIFT LEADER [address] [place] [address] Nurse Practitioner Cardiovascular Disease 07/01/22 Viviane Pacheco APRN RESTAURANT SHIFT LEADER [address] [place] [address] Nurse Practitioner Cardiovascular Disease 07/16/22 Genevieve Puentes NP [address] [place] 560775 Nurse Practitioner Cardiology 07/25/22 Tin Mckenzie MD [address] [place] [address] Cardiovascular Disease 11/04/22 Mauricio New MD [address] [place], [place] [address] Assigned Surgical Provider 10/19/24 Sheila Lara MD [address] [place] [address] Assigned Heart and Vascular Provider 10/19/24 documented as of this encounter
--- OUTSIDE RECORDS SUMMARY | 2024-12-08 14:44 | XMS_ITS | Encounter Summary ---
Author Organization [place] Address [facility] [place] [address] Care Team Providers Care Miller Distillery Name Role Phone Lexie Bose RECEIVING DISTRIBUTION STATION OPERATOR EDITOR HOUSE ORGAN Unavailable [phone] Viviane Pacheco RECEIVING DISTRIBUTION STATION OPERATOR EDITOR HOUSE ORGAN Unavailable [phone] Genevieve Puentes NP Unavailable [phone] Tin Mckenzie MD Unavailable [phone] Amarilis Rincon MD Primary Care Provider + [phone] Mauricio New MD Unavailable [phone] Sheila Lara MD Unavailable Reason for Visit * Reason Onset Date Comments Pt. Information/instruction 10/31/2024 Encounter Details Date Type Department Care Team (Late st Contact Info) Description 10/31/2024 Telephone [facility] [address] [facility] [place] [address] Gudelia Mancera, RN Pt. Information/instruction Social History [...] on filedocumented in this encounter Care Teams Miller Distillery Relationship Specialty Start Date End Date Amarilis Rinocn MD [address] [place] [address] PCP - General Family Practice 02/11/24 Lxeie Bose APRN EDITOR HOUSE ORGAN [address] [place] [address] Nurse Practitioner Cardiovascular Disease 07/01/22 Viviane Pacheco APRN EDITOR HOUSE ORGAN [address] [place] 520105 Nurse Practitioner Cardiovascular Disease 07/16/22 Genevieve Puentes NP [address] [place] [address] Nurse Practitioner Cardiology 07/25/22 Tin Mckenzie MD [address] [place] [address] Cardiovascular Disease 11/04/22 Mauricio New MD [address] [place] [address] Assigned Surgical Provider 10/19/24 Sheila Lara MD [address] [place] [address] Assigned Heart and Vascular Provider 10/19/24 documented as of this encounter
--- OUTSIDE RECORDS SUMMARY | 2024-12-08 14:44 | XMS_ITS | Encounter Summary ---
Author Organization [place] Address [address] [place] [address]. [place] [address] Care Team Providers Care Stile Ripsaw Operator Name Role Phone Lexie Bose COIL ASSEMBLER TOWER CONTROL OPERATOR Unavailable [phone] Viviane Pacheco APRN TOWER CONTROL OPERATOR Unavailable [phone] Genevieve Puentes NP Unavailable [phone] Tin Mckenzie MD Unavailable [phone] Amarilis Rincon MD Primary Care Provider + [phone] Mauricio New MD Unavailable [phone] Sheila Lara MD Unavailable Encounter Details Date Type Department Care Team (Late st Contact Info) Description 12/01/2024 [facility] [place] [address] [facility] [address] [place] [address] Sheila Lara MD [address] [facility] [address] [place] [address] Social History Tobacco Use Types [...] up appt Additional Notes: Specialty phone number: [phone] documented in this encounter Plan of Treatment Not on file documented as of this encounter Visit Diagnoses Not on filedocumented in this encounter Care Teams Stile Ripsaw Operator Relationship Specialty Start Date End Date Amarilis Rincon MD [address] [place] [address] PCP - General Family Practice 02/11/24 Lexie Bose APRN TOWER CONTROL OPERATOR [address] [place] [address] Nurse Practitioner Cardiovascular Disease 07/01/22 Viviane Pacheco APRN TOWER CONTROL OPERATOR [address] 687915 Nurse Practitioner Cardiovascular Disease 07/16/22 Genevieve Puentes NP [address] [address] Nurse Practitioner Cardiology 07/25/22 Tin Mckenzie MD [address] [place] [address] Cardiovascular Disease 11/04/22 Mauricio New MD [address] [place] [address] Assigned Surgical Provider 10/19/24 Sheila Lara MD [address] [place] [address] Assigned Heart and Vascular Provider 10/19/24 documented as of this encounter
--- NOTE | 2024-12-08 14:53 | ED.GENADULT ---
HPI - General Adult General Time Seen by Provider: 14:53 Date Seen: 12/08/24 Chief complaint: Shortness of Breath/Dyspnea Stated complaint: ill, weakness Time Seen by Provider: 12/08/24 14:44 Source: patient and RN notes reviewed Mode of arrival: ambulatory Limitations: no limitations History of Present Illness HPI narrative: This 74-year-old female is coming in from home via EMS with complaints of inability to breathe. She was given a DuoNeb by EMS EN route, did feel better shortly after that but when I went in to talk to her, was feeling worse. She basically was only able to shake her head yes or now, really could not talk much secondary to dyspnea as well as her CPAP being on. She has ongoing nicotine dependence, obstructive sleep apnea, pulmonary hypertension, morbid obesity, CHF. She did not take her diuretic this morning. She has not gotten antibiotics, steroids or the DuoNebs delivered from the pharmacy yet. She was just discharged yesterday on doxycycline, 40 mg of prednisone for 3 more days which is not been taken today and DuoNebs. She does have air conditioning at home but notes that she has not been using it as it has been cool outside. Reviewed with her that the air quality is significantly poor right now. She is chronically anticoagulated with Coumadin due to paroxysmal atrial fibrillation. She just noted increasing difficulty breathing and shortness of breath overnight. Respiratory therapy was down on arrival, she had done better after EMS had given her DuoNeb. Respiratory therapy was able to have her on her CPAP without oxygen support and was oxygenating at 93-96% on room air, felt like she was very similar to her discharge during the hospitalization. Related Data Home Medications ?Medication ?Instructions ?Recorded ?Confirmed acetaminophen 500 mg tablet 1,000 mg PO Q8H PRN 04/07/23 12/08/24 (Tylenol Extra Strength) albuterol sulfate 90 mcg/actuation 2 puff inhalation Q4H PRN dyspnea 04/07/23 12/08/24 aerosol inhaler atorvastatin 80 mg tablet 80 mg PO HS 04/07/23 12/08/24 bumetanide 1 mg tablet 2 mg PO BID@09,16 04/07/23 12/08/24 cholecalciferol (vitamin D3) 25 25 mcg PO DAILY 04/07/23 12/08/24 mcg (1,000 unit) capsule diltiazem HCl 240 mg 240 mg PO DAILY 04/07/23 12/08/24 capsule,extended release 24 hr insulin glargine 100 unit/mL (3 25 unit subcut HS 04/07/23 12/08/24 mL) subcutaneous pen (Lantus Solostar U-100 Insulin) metoprolol succinate 200 mg 200 mg PO DAILY 04/07/23 12/08/24 tablet,extended release 24 hr potassium chloride 20 mEq 40 meq PO BID 04/07/23 12/08/24 tablet,extended release empagliflozin 25 mg tablet 25 mg PO DAILY 08/24/24 12/08/24 (Jardiance) gabapentin 300 mg capsule 300 - 600 mg PO BID 08/24/24 12/08/24 metolazone 2.5 mg tablet 5 mg PO DAILY PRN 08/24/24 12/08/24 nystatin 100,000 unit/gram topical 1 applic topical BID PRN 08/24/24 12/08/24 cream nystatin 100,000 unit/gram topical 1 applic topical QID PRN 08/24/24 12/08/24 powder doxycycline hyclate 100 mg capsule 100 mg PO BID 12/08/24 12/08/24 Previous Rx's ?Medication ?Instructions ?Recorded ipratropium 0.5 mg-albuterol 3 mg 2.5 ml inhalation QID #120 mL 12/07/24 (2.5 mg base)/3 mL nebulization soln nicotine 21 mg/24 hr daily 1 patch transdermal Q24H #28 ea 12/07/24 transdermal patch prednisone 20 mg tablet 40 mg (2 x 20 mg) PO DAILYWM #6 12/07/24 tabs warfarin 2.5 mg tablet 2.5 - 3.75 mg (1 - 1.5 x 2.5 mg) 12/07/24 PO QPM #45 tabs Allergies Allergy/AdvReac Type Severity Reaction Status Date / Time No Known Drug Allergies Allergy Verified 12/08/24 15:00 Review of Systems Status of ROS: Reports: 6 or more systems reviewed and unremarkable except as noted in History and below [facility] Medical History (Updated 12/10/24 @ 16:19 by Ana Cheung MD) Acute on chronic respiratory failure with hypoxia and hypercapnia ?J96.21 - Acute and chronic respiratory failure with hypoxia (ICD-10) ?J96.22 - Acute and chronic respiratory failure with hypercapnia (ICD-10) Acute on chronic heart failure with preserved ejection fraction (HFpEF) ?I50.33 - Acute on chronic diastolic (congestive) heart failure (ICD-10) Valvular cardiomyopathy ?I42.8 - Other cardiomyopathies (ICD-10) Smoking greater than 40 pack years ?F17.210 - Nicotine dependence, cigarettes, uncomplicated (ICD-10) Urinary incontinence ?R32 - Unspecified urinary incontinence (ICD-10) Chronic obstructive pulmonary disease ?J44.9 - Chronic obstructive pulmonary disease, unspecified (ICD-10) Physical debility ?R53.81 - Other malaise (ICD-10) Major depressive disorder ?F32.9 - Major depressive disorder, single episode, unspecified (ICD-10) Diabetic peripheral neuropathy associated with type 2 diabetes mellitus ?E11.42 - Type 2 diabetes mellitus with diabetic polyneuropathy (ICD-10) Chronic kidney disease, stage III (moderate) ?N18.30 - Chronic kidney disease, stage 3 unspecified (ICD-10) Migraine ?G43.909 - Migraine, unspecified, not intractable, without status migrainosus (ICD-10) Vitamin D deficiency ?E55.9 - Vitamin D deficiency, unspecified (ICD-10) History of rectal bleeding ?Z87.19 - Personal history of other diseases of the digestive system (ICD-10) Allergic rhinitis ?J30.9 - Allergic rhinitis, unspecified (ICD-10) Tobacco dependence ?F17.200 - Nicotine dependence, unspecified, uncomplicated (ICD-10) Morbid obesity with BMI of 50.0-59.9, adult ?E66.01 - Morbid (severe) obesity due to excess calories (ICD-10) ?Z68.43 - Body mass index [BMI] 50.0-59.9, adult (ICD-10) Chronic acquired lymphedema ?I89.0 - Lymphedema, not elsewhere classified (ICD-10) Obstructive sleep apnea on CPAP ?G47.33 - Obstructive sleep apnea (adult) (pediatric) (ICD-10) Anticoagulation goal of INR 2 to 3 ?Z51.81 - Encounter for therapeutic drug level monitoring (ICD-10) ?Z79.01 - intermediate teacher (current) use of anticoagulants (ICD-10) Chronic anticoagulation ?Z79.01 - custodial (current) use of anticoagulants (ICD-10) Paroxysmal atrial fibrillation ?I48.0 - Paroxysmal atrial fibrillation (ICD-10) History of tachycardia-bradycardia syndrome ?Z86.79 - Personal history of other diseases of the circulatory system (ICD-10) Heart failure with preserved ejection fraction ?I50.30 - Unspecified diastolic (congestive) heart failure (ICD-10) Acute hypoxic respiratory failure ?J96.01 - Acute respiratory failure with hypoxia (ICD-10) Insulin-requiring or dependent type II diabetes mellitus ?E11.9 - Type 2 diabetes mellitus without complications (ICD-10) ?Z79.4 - custodial (current) use of insulin (ICD-10) Surgical History H/O hernia repair ?Z98.890 - Other specified postprocedural states (ICD-10) ?Z87.19 - Personal history of other diseases of the digestive system (ICD-10) History of total abdominal hysterectomy and bilateral salpingo-oophorectomy ?Z90.710 - Acquired absence of both cervix and uterus (ICD-10) ?Z90.722 - Acquired absence of ovaries, bilateral (ICD-10) ?Z90.79 - Acquired absence of other genital organ(s) (ICD-10) History of total left knee replacement (TKR) ?Z96.652 - Presence of left artificial knee joint (ICD-10) History of total right knee replacement ?Z96.651 - Presence of right artificial knee joint (ICD-10) History of total left hip replacement ?Z96.642 - Presence of left artificial hip joint (ICD-10) History of total right hip replacement ?Z96.641 - Presence of right artificial hip joint (ICD-10) Family History Mother Cancer Social History Narrative: Lives alone. Receives extra help and support in her home due to underlying evolving physical debility and physically deconditioned state. Designates her cousin, Heather Walker, as her primary healthcare power of workers compensation attorney should that be required, . Secondary POA would be her brother, Elfego Root. Requests DNR DNI resuscitation status in the event of cardiopulmonary demise. Smokes 1-1.5 pack of cigarettes a day for over 50 years. Does not drink alcohol. She gets around her home with an electric scooter. She is able to stand and walk holding on with a cane or holding onto zhao furniture counter tops. She reports that she thinks things are going well in her home situation. She has [facility] home healthcare with Dr. Rincon and Jacquie Haley [facility] and nursing care frequently doing home visits. What is your current living situation?: I presently have a place to live Problems where you live: no known problems Problems where you live details: n/a In the past 12 months, utilities in danger of being shut off: no In past 12 months, lack of transportation kept you from medical appts, meetings, work, or getting things needed for daily living: yes In the past 12 mos, have been you worried that your food would run out before you had money to buy more?: never true In the past 12 mos, the food you bought just didn't last and you didn't have money to buy more?: never true Highest level of school completed/degree received: some college, no degree Smoking Status: Current every day smoker What tobacco products do you use: cigarettes Smoking packs per day: 1 Smoking cigarettes per day: 20.0 Smoking quit date/years: >15 years ago Do you use any of these nicotine containing products: None How often do you have a drink containing alcohol: never How often do you have six or more drinks on one occasion: Never AUDIT-C Alcohol total score: 0 Non-prescribed substance use: denies use Caffeine: Yes How often does anyone, including family, friends and others, physically hurt you: never How often does anyone, including family, friends and others, insult or talk down to you: never How often does anyone, including family, friends and others, threaten you with harm: never How often does anyone, including family, friends and others, scream or curse at you: never service: No Health Related Social Needs: transportation insecurity (Z59.82) Exam Const: Vital Signs, click to edit/add: Vital Signs - 24 hr 12/08/24 14:48 12/08/24 14:49 12/08/24 14:52 Temperature Pulse Rate 109 H 119 H 124 H Pulse Rate [Pulse Oximeter] Respiratory Rate Blood Pressure 99/76 128/113 H Blood Pressure [Le ft Upper Arm] Pulse Oximetry 100 96 93 Oxygen Delivery Me thod CPAP CPAP CPAP Oxygen Flow Rate 2 2 2 12/08/24 14:53 12/08/24 15:00 12/08/24 15:02 Temperature 96.8 F L Pulse Rate 112 H 102 H Pulse Rate [Pulse Oximeter] 110 H Respiratory Rate 24 Blood Pressure 130/88 Blood Pressure [Le ft Upper Arm] 99/76 Pulse Oximetry 97 91 90 Oxygen Delivery Me thod CPAP CPAP CPAP Oxygen Flow Rate 2 2 12/08/24 15:19 12/08/24 15:30 12/08/24 15:35 Temperature Pulse Rate 118 H 108 H Pulse Rate [Pulse Oximeter] Respiratory Rate Blood Pressure 135/72 Blood Pressure [Le ft Upper Arm] Pulse Oximetry 80 L 91 Oxygen Delivery Me thod CPAP CPAP CPAP Oxygen Flow Rate 2 2 2 12/08/24 15:45 12/08/24 15:48 12/08/24 15:49 Temperature Pulse Rate 121 H 102 H Pulse Rate [Pulse Oximeter] Respiratory Rate 41 H 29 H 28 H Blood Pressure 128/84 Blood Pressure [Le ft Upper Arm] Pulse Oximetry 87 L 89 Oxygen Delivery Me thod CPAP CPAP CPAP Oxygen Flow Rate 2 2 2 12/08/24 16:00 12/08/24 16:02 12/08/24 16:15 Temperature Pulse Rate 106 H 104 H 95 Pulse Rate [Pulse Oximeter] Respiratory Rate 62 H 31 H 27 H Blood Pressure 109/86 Blood Pressure [Le ft Upper Arm] Pulse Oximetry 90 91 90 Oxygen Delivery Me thod CPAP CPAP CPAP Oxygen Flow Rate 2 2 2 12/08/24 16:18 12/08/24 16:30 12/08/24 16:32 Temperature Pulse Rate 108 H 111 H 115 H Pulse Rate [Pulse Oximeter] Respiratory Rate 27 H 41 H 23 Blood Pressure 111/52 L 126/89 Blood Pressure [Le ft Upper Arm] Pulse Oximetry 84 L 83 L 93 Oxygen Delivery Me thod CPAP CPAP CPAP Oxygen Flow Rate 2 2 2 74-year-old female seems dyspneic, is shaking her head yes or no to my questions. Did speak a couple words, voice is not hoarse. She is not coughing. She is wearing her CPAP. Sclera slightly injected but conjugate gaze, no periorbital swelling or erythema noted. Neck is thick, difficult to assess any jugular venous distension but no masses noted. She is able to sit up, has very tight lung sounds, do hear some end expiratory wheezing. CV is fast, irregular, distant heart sounds but do not appreciate significant murmur. Abdomen is obese but soft, nontender, body habitus makes examination difficult but she really has no tenderness. She has chronically thickened lower extremities. The skin abrasion that is been noted on her right lower extremity has some minimal pinkish around the periphery but have no concerns about secondary infection at this time. Documenting provider has reviewed patient's vital signs: yes Course Course ED Course: Patient is coming in with worsening dyspnea. She just was in the hospital yesterday. Will get a portable chest x-ray, have her on pulse oximetry and cardiac monitoring. Respiratory therapy is already been here and will continue to work with her as needed. She is on her own CPAP right now but will talk to staff as I see her being more hypoxic than arrival, need to give steroids as well as antibiotics, needs diuresis as well. She did miss medications due to Pharmacy not delivering her medicines yet. Think this is ongoing issues. Will get EKG and look at cardiac enzymes as well. Reevaluation(s) Time of Reevaluation #1: 15:29 Reevaluation #1: Respiratory therapy did come back down to evaluate patient. She was requesting nasal cannula oxygen. He did have to explained to her why the nasal cannula oxygen is not as beneficial is using her CPAP, if we do need to bleeding oxygen we can into her CPAP. Time of Reevaluation #2: 15:35 Reevaluation #2: Patient's EKG is showing atrial fibrillation with RVR, rate 127. After talking to RT, did go back in and patient is talking in short phrases, really does not feel well, feel short of breath still. Her current blood pressure is 130/88, pulse is still 120s range. She has her CPAP back on. She believes that she took her metoprolol and her Cardizem this morning. From her recent hospitalization, echo from 08/24/2024 showed LVEF 60-65%, RV moderately enlarged with mildly reduced function, moderate aortic stenosis, moderate mitral regurg, severe pulmonary hypertension at 55 mmHg plus right atrial pressure. Patient does have some room for rate control, do feel fluid overload as well as COPD is culprit in her symptomatology. Will try some IV metoprolol 5 mg to capture some rate control. Have already given the steroids and the Lasix, hopefully Lasix will be pulling off any extra fluid. I do not proceed this patient being able to go home. We do have protime pending but she is known to be chronically anticoagulated with Coumadin. Time of Reevaluation #3: 16:25 Reevaluation #3: Patient is talking on the phone, is just starting her DuoNeb, has not been given yet. She has her CPAP off. We discussed hospitalization. She is thinking that she wants to go home. We discussed the complexity of her situation and the importance of refraining from nicotine use. I fear she continues to smoke that we will not be able to help her reverse problems in the future. She also has pulmonary hypertension, COPD as well as CHF. All these intertwined can react together and cause symptomatology. Will reassess her after her DuoNeb. Her heart rate is lower, closer to 110. Blood pressure is still maintaining. Additional Reevaluation(s): 5:21 p.m.: Patient has her CPAP back on. She is able to speak to me in short phrases. She does have ongoing end-expiratory wheezing, sounds a bit it tighter than what she actually did before the DuoNeb. Her heart rate is back up again into the 120s after the neb. She had come down with initial dose of IV metoprolol, blood pressure is high enough to support another dose of IV metoprolol. She typically would not take her night meds until 7 or 8:00 p.m.. Consultations Consultation #1: Have reviewed with the hospitalist Dr. Diana. We have discussed her chronic medical conditions, including the atrial fibrillation which she is now in atrial fibrillation with RVR, has underlying COPD/CHF/severe pulmonary hypertension. Unclear if further treatment and evaluation of the pulmonary hypertension has been considered. Certainly her atrial fibrillation can be further assessed and treated here. I do think that congestive heart failure and COPD are also active medical issues at this time which we will work on treating further. He accepts the patient and requests inpatient. Time: 17:38 Vital Signs Vital signs: Initial Vital Signs Pulse Rate 109 H 12/08/24 14:48 Pulse Oximetry 100 12/08/24 14:48 Oxygen Delivery Method CPAP 12/08/24 14:48 Oxygen Flow Rate 2 12/08/24 14:48 Vital Signs Pulse Rate 109 H 12/08/24 14:48 Pulse Oximetry 100 12/08/24 14:48 Oxygen Delivery Method CPAP 12/08/24 14:48 Oxygen Flow Rate 2 12/08/24 14:48 Temperature 98.3 F 12/10/24 08:58 Pulse Rate 90 12/10/24 11:00 Respiratory Rate 18 12/10/24 11:00 Blood Pressure 110/90 H 12/10/24 11:00 Pulse Oximetry 90 12/10/24 12:00 Oxygen Delivery Method CPAP 12/10/24 11:00 Oxygen Flow Rate 2 12/10/24 11:00 Fraction of Inspired Oxygen 2 12/09/24 13:00 Medications Administered Medications: Generic Name Dose Route Start Last Admin Trade Name Freq PRN Reason Stop Dose Admin Acetaminophen 1,000 mg 12/08/24 18:43 12/10/24 01:23 Acetaminophen 500 Mg Tablet PO 1,000 mg Q8H PRN Administration Albuterol/Ipratropium 1 neb 12/08/24 21:00 12/10/24 16:17 Iprat-Albut 0.5-2.5 Mg/3 Ml Neb IH Not Given QID [facility] Clotrimazole 1 applic 12/09/24 21:00 12/09/24 13:35 Clotrimazole 1 % Cream TOPICAL 1 applic BID PRN Administration Digoxin 250 mcg 12/10/24 09:00 12/10/24 10:06 Digoxin 250 Mcg Tablet PO 250 mcg DAILY ANGELI Administration Diltiazem HCl 240 mg 12/09/24 09:00 12/10/24 09:55 Diltiazem 240 Mg Cap (Cd) PO 240 mg DAILY ANGELI Administration Diltiazem HCl 30 mg 12/08/24 22:45 12/09/24 03:43 Diltiazem 30 Mg Tablet PO 30 mg On Hold: 12/09/24 08:07 Q6H PRN Administration Doxycycline Hyclate 100 mg 12/08/24 21:00 12/10/24 09:56 Doxycycline Hyclate 100 Mg PO 100 mg BID ANGELI Administration Empagliflozin 25 mg 12/09/24 09:00 12/10/24 09:55 Empagliflozin 25 Mg Tablet PO 25 mg DAILY ANGELI Administration Furosemide 80 mg 12/09/24 16:00 12/10/24 09:57 Furosemide 10 Mg/Ml Inj IVP 80 mg 0900,1600 ANGELI Administration Insulin Aspart 0 unit 12/09/24 08:30 12/10/24 13:17 Insulin Aspart 100 Unit/Ml SUBCUT 6 unit TIDWM ANGELI Administration Protocol Insulin Glargine 25 unit 12/08/24 21:00 12/09/24 09:31 Insulin Glargine,Hum.Rec.Anlog 100 Unit/Ml Insuln.Pen SUBCUT 25 unit HS ANGELI Administration Metoprolol Succinate 200 mg 12/09/24 09:00 12/10/24 09:54 Metoprolol Succinate (Xl) 100 Mg Tab PO 200 mg DAILY ANGELI Administration Nicotine 1 patch 12/08/24 20:00 12/09/24 20:19 Nicotine 21 Mg Patch TRANSDERMA 1 patch Q24H ANGELI Administration Potassium Chloride 40 meq 12/08/24 21:00 12/10/24 09:55 Potassium Chloride 10 Meq Capsule Er PO 40 meq BID ANGELI Administration Prednisone 40 mg 12/09/24 08:00 12/10/24 09:56 Prednisone 20 Mg Tablet PO 40 mg DAILYWM ANGELI Administration Sodium Chloride 5 ml 12/08/24 21:00 12/10/24 09:57 Sodium Chloride 0.9 % (Flush) 10 Ml Syringe IVF 5 ml BID ANGELI Administration Sodium Chloride 250 ml 12/08/24 21:30 12/10/24 04:02 0.9 % Sodium Chloride 250 Ml IV 250 ml Q24H ANGELI Administration Warfarin Sodium 2.5 mg 12/09/24 17:00 12/09/24 16:26 Warfarin 2.5 Mg Tablet PO 2.5 mg Q48H ANGELI Administration Discontinued Medications Generic Name Dose Route Start Last Admin Trade Name Freq PRN Reason Stop Dose Admin Albuterol/Ipratropium 1 neb 12/08/24 15:51 12/08/24 16:24 Iprat-Albut 0.5-2.5 Mg/3 Ml Neb IH 12/08/24 15:52 1 neb ONCE ONE Administration Digoxin 500 mcg 12/09/24 08:04 12/09/24 08:26 Digoxin 250 Mcg/Ml Inj IV 12/09/24 08:05 500 mcg ONCE ONE Administration Digoxin 250 mcg 12/09/24 16:00 12/10/24 00:16 Digoxin 250 Mcg/Ml Inj IV 12/10/24 00:01 250 mcg Q8H ANGELI Administration Diltiazem HCl 10 mg 12/08/24 22:45 12/08/24 23:19 Diltiazem 5 Mg/Ml Inj IVP 12/08/24 22:46 10 mg ONCE ONE Administration Furosemide 40 mg 12/08/24 15:09 12/08/24 15:46 Furosemide 10 Mg/Ml Inj IVP 12/08/24 15:10 40 mg ONCE ONE Administration Furosemide 40 mg 12/08/24 18:43 12/08/24 21:27 Furosemide 10 Mg/Ml Inj IVP 12/08/24 18:44 40 mg ONCE ONE Administration Furosemide 40 mg 12/09/24 08:00 12/09/24 08:26 Furosemide 10 Mg/Ml Inj IVP 40 mg BID ANGELI Administration Furosemide 40 mg 12/09/24 10:24 12/09/24 11:45 Furosemide 10 Mg/Ml Inj IVP 12/09/24 10:25 40 mg ONCE ONE Administration Doxycycline Hyclate 100 mg/ 100 mls @ 100 mls/hr 12/08/24 15:35 12/08/24 17:27 Sodium Chloride IVPB 12/08/24 16:34 Infused ONCE ONE Infusion Magnesium Sulfate/Dextrose 1 gm in 100 mls @ 100 mls/hr 12/08/24 18:43 12/08/24 23:55 Magnesium Sulf 1 G/100 Ml-D5w IVPB 12/08/24 19:42 Infused ONCE ONE Infusion Diltiazem HCl 125 mg/ Sodium 125 mls @ 10 mls/hr 12/09/24 10:25 12/10/24 10:08 Chloride IVPB Infused .TITRATE ANGELI Infusion Protocol Methylprednisolone Sodium Succinate 125 mg 12/08/24 15:09 12/08/24 15:49 Methylprednisolone Sod Succ 62.5 Mg/Ml (125) IVP 12/08/24 15:10 125 mg ONCE ONE Administration Metoprolol Tartrate 5 mg 12/08/24 15:34 12/08/24 15:55 Metoprolol Tartrate 1 Mg/Ml Inj IVP 12/08/24 15:35 5 mg ONCE ONE Administration Metoprolol Tartrate 5 mg 12/08/24 17:22 12/08/24 17:28 Metoprolol Tartrate 1 Mg/Ml Inj IVP 12/08/24 17:23 5 mg ONCE ONE Administration Perflutren Lipid Microsphere 2 ml 12/09/24 11:32 12/09/24 11:43 Perflutren Lipid Microspheres 2 Ml Vial IVP 12/09/24 11:33 2 ml ONCE ONE Administration Warfarin Sodium 3.75 mg 12/08/24 21:00 12/08/24 21:29 Warfarin 2.5 Mg Tablet PO 3.75 mg Q48H ANGELI Administration Medical Decision Making Lab Data Lab results reviewed: Yes I reviewed the patient's lab results Labs: Lab Results 12/08/24 Range/Units 15:30 WBC 10.63 (4.50-11.00) K/uL RBC 5.79 H (4.00-5.20) m/uL Hgb 18.0 H (12.0-16.0) gm/dL Hct 55.8 H (33.0-51.0) % MCV 96 (80-100) fL MCH 31 (26-34) pg MCHC 32 (32-36) gm/dL RDW Coeff of Aby 15.1 (11.5-15.5) % Plt Count 160 (140-440) K/uL Neut % (Auto) 75.4 H (42.0-72.0) % Lymph % (Auto) 15.2 L (20-44) % Barton % (Auto) 7.1 (0.0-11.0) % Eos % (Auto) 0.4 (0.0-7.0) % Baso % (Auto) 0.1 (0.0-3.0) % Neut # (Auto) 8.00 H (1.7-7.0) K/uL Lymph # (Auto) 1.60 (0.90-2.90) K/uL Barton # (Auto) 0.80 (0.00-0.90) K/UL Eos # (Auto) 0.04 (0.00-0.50) K/uL Baso # (Auto) 0.01 (0.00-0.30) K/uL Abs Immat Gran (auto) 0.19 (0.00-0.30) K/uL Imm/Tot Granulo (auto) 1.8 % INR 1.93 H (0.91-1.10) VBG pH 7.399 (7.32-7.43) VBG pCO2 52 H (40-50) mmHG VBG pO2 67.7 H (25-47) mmHG VBG HCO3 32 H (21-28) mmol/L Sodium 141 (135-149) mmol/L Potassium 4.0 (3.6-5.1) mmol/L Chloride 101 (96-114) mmol/L Carbon Dioxide 30 (20-32) mmol/L Anion Gap 10 (7-15) mEq/L BUN 54 H (7-30) mg/dL Creatinine 1.2 (0.5-1.5) mg/dL Estimated GFR 48 ml/min Glucose 167 H (60-115) mg/dL Lactate 2.3 H (0.5-1.9) mmol/L Calcium 8.4 (8.4-10.6) mg/dL Magnesium 1.4 L (1.5-2.6) mg/dL Total Bilirubin 0.9 (0.1-1.5) mg/dL AST 35 (12-35) U/L ALT 31 (4-35) U/L Alkaline Phosphatase 77 (40-150) U/L Troponin I < 0.01 (0.01-0.04) ng/mL C-Reactive Protein < 0.5 L (0.5-1.0) mg/dL NT-Pro-B Natriuret Pep 3240 H (See Note) pg/mL Total Protein 7.1 (6.0-8.3) g/dL Albumin 4.0 (3.3-5.0) g/dL Procalcitonin 0.08 (<0.50) ng/mL Imaging Data Chest x-ray: Attestation: I have reviewed the pertinent imaging results. My impression: Do believe that there might be some fluid overload, did compared to most recent portable chest x-ray and perhaps look slightly better today but overall still think there is fluid overload. Do not appreciate acute infiltrate on my preliminary review. Radiologist's impression: Patient: GINGER ROOT Facility:?[facility] Patient ID:?[id number] Site Patient ID:?[id number]. Site :?[id number] Study:?XRay-Chest 1V-12/08/2024 3:11:43 PM Ordering Physician:Dane Perez Final Report: INDICATION: Shortness of breath worsening, history of chronic obstructive pulmonary disease, congestive heart failure TECHNIQUE: Chest radiograph 1 view COMPARISON: 12/04/2024 FINDINGS: The sensitivity and specificity of the exam are severely limited by the patient`s body habitus. Mediastinum: The central pulmonary arteries are enlarged and likely due to pulmonary hypertension. Moderate, stable cardiomegaly is noted. Left cardiac pacer is noted without interval change. Lung: Small lung volumes are present with mild pulmonary vascular congestion and perihilar interstitial edema. No sign of pleural effusion seen. No pneumothorax is identified. Bone and Soft tissue: Unremarkable for age. IMPRESSIONS: 1. Small lung volumes are present with mild pulmonary vascular congestion and perihilar interstitial edema. 2. The central pulmonary arteries are enlarged and likely due to pulmonary hypertension. 3. Moderate, stable cardiomegaly is noted. Dictated by Levi Steven MD @ 12/08/2024 3:41:29 PM Dictated by: Levi Steven MD @ 12/08/2024 15:41:30 (Electronic Signature) ECG Data Attestation: I personally reviewed and interpreted this ECG as follows: (Atrial fibrillation with rapid ventricular response, 127 beats per minute. Q-waves septal as well as lateral without any active ST segment changes.) Discharge Plan Discharge Clinical Impression: Atrial fibrillation with rapid ventricular response, COPD exacerbation Congestive heart failure Qualifiers: Heart failure type: unspecified Heart failure chronicity: acute on chronic Qualified Code(s): I50.9 - Heart failure, unspecified Patient Disposition: Admitted As Inpatient Condition: Unchanged
--- NOTE | 2024-12-08 14:54 | CRLHL7_ITS ---
For Patients: As a result of the Century Cures Act, medical imaging exams and procedure reports are released immediately into your electronic medical record. You may view this report before your referring provider. If you have questions, please contact your health care provider. INDICATION: Shortness of breath worsening, history of chronic obstructive pulmonary disease, congestive heart failure TECHNIQUE: Chest radiograph 1 view COMPARISON: 12/04/2024 FINDINGS: The sensitivity and specificity of the exam are severely limited by the patient`s body habitus. Mediastinum: The central pulmonary arteries are enlarged and likely due to pulmonary hypertension. Moderate, stable cardiomegaly is noted. Left cardiac pacer is noted without interval change. Lung: Small lung volumes are present with mild pulmonary vascular congestion and perihilar interstitial edema. No sign of pleural effusion seen. No pneumothorax is identified. Bone and Soft tissue: Unremarkable for age. IMPRESSIONS: 1. Small lung volumes are present with mild pulmonary vascular congestion and perihilar interstitial edema. 2. The central pulmonary arteries are enlarged and likely due to pulmonary hypertension. 3. Moderate, stable cardiomegaly is noted. Dictated by Levi Steven MD @ 12/08/2024 3:41:29 PM Dictated by: Levi Steven MD @ 12/08/2024 15:41:30 (Electronically Signed)
[2024-12-08 15:43] LABS: HCO3 VBG 32 mmol/L (21-28); Lactate* 2.3 mmol/L (0.5-1.9); PCO2 VBG 52 mmHG (40-50); PO2 VBG 67.7 mmHG (25-47); pH VBG 7.399 (7.32-7.43)
[2024-12-08] MEDS: FUROSEMIDE 10 MG/ML inj 40 MG IVP ×2 (15:46→21:27)
[2024-12-08] MEDS: METHYLPREDNISOLONE SOD SUCC 62.5 MG/ML (125) 125 MG IVP (15:49)
[2024-12-08] MEDS: METOPROLOL TARTRATE 1 MG/ML inj 5 MG IVP ×2 (15:55→17:28)
[2024-12-08 16:05] LABS: Chloride* 101 mmol/L (96-114); Sodium* 141 mmol/L (135-149)
[2024-12-08 16:07] LABS: Alanine Aminotransferase* 31 U/L (4-35); Aspartate Amino Transferase* 35 U/L (12-35); Basophils Absolute Auto 0.01 K/uL (0.00-0.30); Basophils Percent Auto 0.1 % (0.0-3.0); Blood Urea Nitrogen* 54 mg/dL (7-30); Creatinine* 1.2 mg/dL (0.5-1.5); Eosinophils Absolute Auto 0.04 K/uL (0.00-0.50); Eosinophils Percent Auto 0.4 % (0.0-7.0); Estimated Glomerular Filt Rate 48 ml/min; Hematocrit 55.8 % (33.0-51.0); Immature Granulocytes Abs Auto 0.19 K/uL (0.00-0.30); Immature Granulocytes Pct Auto 1.8 %; Lymphocytes Percent Auto 15.2 % (20-44); Mean Corpuscular HGB Conc 32 gm/dL (32-36); Mean Corpuscular Hemoglobin 31 pg (26-34); Mean Corpuscular Volume 96 fL (80-100); Monocytes Percent Auto 7.1 % (0.0-11.0); Neutrophils Percent Auto 75.4 % (42.0-72.0); Platelet Count* 160 K/uL (140-440); RDW Coefficient of Variation % 15.1 % (11.5-15.5); Red Blood Count 5.79 m/uL (4.00-5.20); White Blood Count* 10.63 K/uL (4.50-11.00)
[2024-12-08 16:08] LABS: Alkaline Phosphatase* 77 U/L (40-150); Anion Gap 10 mEq/L (7-15); Bilirubin Total* 0.9 mg/dL (0.1-1.5); Calcium* 8.4 mg/dL (8.4-10.6); Carbon Dioxide* 30 mmol/L (20-32); Glucose* 167 mg/dL (60-115); INR 1.93 (0.91-1.10); Prothrombin Time 23.1 Seconds; Total Protein* 7.1 g/dL (6.0-8.3)
--- OUTSIDE RECORDS SUMMARY | 2024-12-08 16:08 | XMS_ITS | Clinical Summary ---
Author Organization [facility] Address [address] [place] [address] Care Team Providers Care Dust Box Worker Name Role Phone Shanae Horn CMA Unavailable [phone] Amarilis Rincon MD Unavailable [phone] Jacquie Haley NP Primary Care Provid er Helena Dickens PharmD Unavailable [phone] Sanjay Harrington Unavailable [phone] Genevieve Peña Unavailable [phone] Johanne Mix RN Unavailable [facility], [facility] Unavailable [phone] Jacquie Haley NP Unavailable [phone] Nazanin NorrisSW Unavailable [phone] Allergies No known active allergies Medications [...] weekly for 4 weeks. 09/22/19 25 Active [employer] René 3 Plus Sensor for continuous blood glucose monitor (CGM) To be used to read blood sugars, follow advocacy director directions. 10/13/19 25 Active potassium chloride 20 [...] Wheezing. 90 mL 1 12/05/19 25 Active nebulizer accessories kitIndications:Ch ronic [...] range 2-3 Take by mouth 10/26: Hold; 10/27: Hold; 2: Hold; 10/29: Hold; 10/30: Hold; Otherwise 3.75 mg every Kirsten; 2.5 mg all other days in the evening OR as directed 10/08/19 25 025 Discontin ued(Reord er (E-cancel not sent)) metOLazone 2.5 mg tabletIndications :Chronic diastolic CHF (congestive heart failure) (HC) Take 1 tablet (2.5mg) by mouth as needed if weight 338 lbs or greater per MD direction. 10 Tablet 1 10/26/19 25 025 Discontin ued(Reord er (E-cancel not sent)) amoxicillin-clavu lanate 875-125 mg tabletIndications :Chronic obstructive pulmonary disease, unspecified COPD type (HC) Take 1 Tablet by mouth two times daily with meals for 5 days. 10 Tablet 12/05/19 25 025 Discontin ued(*Med complete/ Regimen complete/ Level of care change) doxycycline hyclate 100 mg capsuleIndication s:Community acquired pneumonia, unspecified laterality Take 1 Capsule (100 mg) by mouth two times daily for 5 days. 10 Capsule 12/05/19 25 025 Discontin ued(*Med complete/ Regimen complete/ Level of care change) predniSONE 20 mg tabletIndications :Chronic obstructive pulmonary disease, unspecified COPD type (HC) Take 2 Tablets (40 mg) by mouth once daily with a meal. 10 Tablet 12/05/19 25 025 Discontin ued(*Med complete/ Regimen complete/ Level of care change) Active Problems Problem Noted Date Diagnosed Date [...] Waller Relationship: Sister and brother in law Phone--[phone] Secondary Health Care Agent: Bharat Salcidoeileensonia Relationship: brother and sister in law Conservator [...] Advance Care Planning discussion completed with Sydnie Parkinson and her mother Winsome Parkinson on 10/01/2009 at [facility]. Winsome is not Sydnie Montoya's health care agent but was present. The health care agents are nephew, Man Waller; brother Marcus Parkinson and sister Agustina Arias. Patient and family provided with: Advance Care Planning Discussion Guide Health Care Directive Goals and Values: Patient/family identified factors that may influence treatment preferences: Sydnie's rene/gnosticism is important to her. She is a member of [employer] in [place]. Understanding of illness patient identifies being diabetic, we briefly discussed dialysis and Sydnie would elect dialysis. Present/past experiences related to illness or father of heart attack-was brought to hospital in morning and by evening had worsened and -their table and desk finisher was with him at time of and [...] Agents identified. Primary health care agent is Man sims; secondary health care agent is brother, Marcus [...] 01/29/2021 Aftercare following surgery; R NORI 03/2016 [facility] 04/21/2016 01/29/2021 Diabetic neuropathy 04/21/2016 02/01/20 21 [...] Encounters Date Type Department Care Team Description 12/08/2024 Telephone [facility] [address] [place], [place] [phone] Jacquie Haley NP Anticoagulation (Update ) 12/07/2024 Patient Outreach [facility] - Advanced Care Team [address] [place], [place] [phone] Johanne Mix RN [facility] ([facility] (hospital --> 12/07 Home)) 12/05/2024 Patient Outreach [facility] Care Management - Advanced Care Team [address] [place] [address] Nazanin Norris LICSW Senior [facility] Co-Care ([facility] from home to [facility]) 12/05/[address] [address] Jacquie Haley NP Anticoagulation (OPA - DOXYCYCLINE HYCLATE 100 MG CAPSULE ) 12/04/2024 Orders Only [facility] Scanner 1 scan: (1-Ord) [facility], XR CHEST 1V PORTABLE, 12/04/2024 12/04/2024 Nurse Triage [address] [address] Jacquie Haley NP Complex Care Management 12/01/2024 Anticoagulation (warfarin) [facility] [address] [place] [address] [facility] ([facility]) 11/29/2024 1:30 PM CDT Home Care Visit [address] [address] Alissa Call, OTR OT - EDEMA/LYMPHEDEMA INITIAL ASSESSMENT 11/25/2024 5:00 PM CDT Home Care Visit [address] [address] Alissa Call, OTR LYMPHEDEMA CHART CONSULT 11/25/[address] [address] Renetta Grande, chief deputy clerk/bailiff (FYI) 11/24/2024 10:30 AM CDT Home Care Visit [address] [address] Renetta Grande, RN SN - HOME VISIT 11/24/2024 Nurse Triage [address] [address] Jacquie Haley NP Medication Management 11/22/2024 12:30 PM CDT Home Visit [address] [address] Amarilis Rincon MD [facility] Co-Care 11/19/[address] [address] Jacquie Haley NP Refill Request 11/18/2024 2:30 PM CDT Home Care Visit [address] [address] Alissa Nicholson, ARIELLA SN - PRN HOME VISIT 11/18/2024 Orders Only [facility] [address] [place] [address] Jacquie Haley NP <No scans attached> 11/18/2024 Travel 11/17/2024 10:30 AM CDT Home Care Visit [address] [address] Alissa Nicholson RN SN - HOME VISIT 11/17/2024 Anticoagulation (warfarin) [facility] [address] [place] [address] [facility] ([facility]) 11/16/2024 Nurse Triage [address] [address] Jacquie Haley NP Weight (Gain ) 11/10/2024 2:00 PM CDT Home Care Visit [address] [address] Carleen Hernandez RN SN - HOME VISIT 11/10/2024 Anticoagulation (warfarin) [facility] [address] [place] [address] [facility] (Home Care) 11/09/2024 Nurse Triage [address] [address] Jacquie Haley NP Home Care (diarrhea ) 11/08/2024 3:00 PM CDT Home Care Visit [address] [address] Alissa Nicholson, RN SN - HOME VISIT 11/05/2024 Nurse Triage [address] [address] Jacquie Haley NP Leg Swelling 11/03/2024 4:00 PM CDT Home Care Visit [address] [address] Alissa Nicholson, RN SN - HOME VISIT 10/27/2024 12:30 PM CDT Home Care Visit [address] [address] Jeaneth Simon RN SN - OASIS RECERTIFICATION 10/27/2024 Plan of Care Documentation [address] [address] 10/27/2024 Orders Only [facility] [address] [place] [address] Jacquie Haley NP Lab 10/26/[address] [address] Sarah Llamas RN Home Care (labs) 10/26/2024 Nurse Triage [address] [address] Jacquie Haley NP Medication Management 10/25/2024 10:30 AM CDT Home Visit [address] [address] Jacquie Haley NP [facility] Co-Care 10/24/2024 Travel 10/19/2024 12:00 PM CDT Home Care Visit [address] [address] Alissa Nicholson, ARIELLA SN - HOME VISIT 10/19/2024 Anticoagulation (warfarin) [address] [address] [facility] ([facility]- Home Care) 10/12/2024 3:00 PM CDT Home Care Visit [address] [address] Alissa Nicholson, ARIELLA SN - HOME VISIT 10/12/2024 1:00 PM CDT Pharmacist Medication Management [facility] [address] [place] [address] Helena Dickens, LigiaD Pharmacist Medication Management (Follow up) 10/12/[address] [address] Jacquie Haley NP Refill Request (Bumetanide ) 10/12/2024 Nurse Triage [address] [address] Jacquie Haley NP Need Meds (bumetanide) 10/07/2024 Anticoagulation (warfarin) [address] [address] [facility] Anticoagulation (Chart update) 10/05/2024 2:30 PM CDT Home Care Visit [address] [address] Alissa Nicholson RN SN - HOME VISIT 10/05/[address] [address] Jacquie Haley NP Anticoagulation (10/31/2024 Right Heart Cath) 10/05/2024 Anticoagulation (warfarin) [address] [address] [facility] ([facility]) 09/27/2024 3:00 PM CDT Home Care Visit [address] [address] Zoe Lugo, ARIELLA SN - HOME VISIT 09/27/[address] [address] Zoe Lugo, chief deputy clerk/bailiff (Weight/Edema) 09/27/2024 Anticoagulation (warfarin) [facility] [address] [place] [address] [facility] (Home Care/[facility]) 09/24/2024 Orders Only [address] [address] Jaleesa Gonzalez NP <No scans attached> 09/24/2024 Nurse Triage [address] [address] Jacquie Haley NP Abnormal Lab Results 09/22/2024 11:00 AM CDT Home Care Visit [address] [address] Alissa Nicholson, ARIELLA SN - HOME VISIT 09/22/2024 Patient Outreach [facility] Care Management - Advanced Care Team [address] [place] [address] Johanne Mix RN [facility] ([facility] RNCC annual assessment) 09/22/2024 Travel 09/22/2024 Orders Only [facility] [address] [place] [address] Amarilis Rincon MD Lab 09/22/2024 Orders Only [address] [address] Amarilis Rincon MD <No scans attached> 09/21/2024 2:30 PM CDT Pharmacist Medication Management [facility] [address] [place] [address] Helena Dickens, LigiaD Pharmacist Medication Management (Annual 2024 CMR-home) 09/20/2024 3:00 PM CDT Home Care Visit [address] [address] Alissa Nicholson, RN SN - HOME VISIT 09/20/2024 Travel 09/19/2024 Orders Only [address] [address] Jacquie Haley NP <No scans attached> 09/16/2024 3:00 PM CDT Home Care Visit [address] [address] Alissa Nicholson, ARIELLA SN - HOME VISIT 09/16/2024 12:30 PM CDT Home Visit [address] [address] Jacquie Haley NP [facility] Co-Care 09/16/2024 Orders Only [facility] [address] [place] [address] Jacquie Haley NP <No scans attached> 09/13/2024 3:30 PM CDT Home Care Visit [address] [address] Alissa Nicholson RN SN - HOME VISIT 09/13/2024 Anticoagulation (warfarin) [address] [address] [facility] ([facility]) 09/09/2024 3:00 PM CDT Home Care Visit [address] [address] Alissa Nicholson RN SN - HOME VISIT 09/09/2024 Orders Only [address] [address] Amarilis Rincon MD <No scans attached> 09/09/2024 Orders Only [facility] [address] [place] [address] Amarilis Rincon MD <No scans attached> 09/08/2024 12:30 PM CDT Home Care Visit [address] [address] Alissa Nicholson, ARIELLA SN - HOME VISIT from Last 3 Months Immunizations Immunization Administration [...] on file Legal 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 Gender Identity Not on file Sexual Orientation [...] Care Team (Late st Contact Info) Description 12/09/2024 [facility]ointment [facility] [address] [place] [address] 12/12/2024 5:00 AM CDT [facility] [address] [address] Alissa Call, OTR [address] [place] [address] 12/12/2024 10:30 AM CDT Home Visit [address] [address] Jacquie Haley, JERONIMO [address] [place] [address] 12/15/2024 4:00 AM CDT Home Care Visit [address] [address] Alissa Nicholson, RN [address] [place] [address] 12/22/2024 4:00 AM CDT Home Care Visit [address] [address] Alissa Nicholson, RN [address] [place] [address] 12/22/2024 10:30 AM CDT Home Visit [address] [address] Jacquie Haley, JERONIMO [address] [place] [address] 12/26/2024 6:30 AM CDT Appointment [address] [address] Alissa Call, OTR [address] [place] [address] Health Maintenance Due Date Last Done Comments Fecal testing sDNA-FIT (Cologuard) for age 45-75 10/10/1995 RSV vaccine for adults or (1 - Risk 60-74 years 1-dose series) 2010 Mammogram for age 45-75 06/21/2011 06/21/2010 (Barbra fernandez) DEXA/DXA scan for age 65+ 10/10/2015 Low [...] Procedure Name Priority Date/Time Associated Diagnosis Comments SCAN-RADIOLOGY REPORT 12/04/2024 12:00 AM CDT INR,POCT Routine 12/01/2024 BASIC METABOLIC PANEL Routine [...] Recently Relevant to Health Maintenance Results * SCAN-RADIOLOGY REPORT (12/04/2024 12:00 AM CDT) Anatomical Region Laterality Modality Other us Scanner OTHER Final Result * (ABNORMAL) INR,POCT (12/01/2024) Only the most recent of7 resultswithin the time period is included. INR 2.6(EXTERNA L) 0.8 - 1.1 [facility] Blood BLOOD SPECIMEN / Unknown 12/01/2024 Jacquie Haley DIRECTORY CLERK LABORATORY Zulma l Result Performing Organization Address City/State/[facility] Co de Phone Number [facility] [place] [address] * (ABNORMAL) BASIC METABOLIC PANEL (11/18/2024 4:12 PM CDT) Only the most recent of4 resultswithin the time period is included. GLUCOSE 209(H) 65 - 99 mg/dL [facility] [...] PM CDT 11/19/2024 3:45 AM CDT Jacquie Howeelvira DIRECTORY CLERK CHEMISTRY Zulma l Result [facility] [address] [place] [address], [facility] [address] [place] [address] * (ABNORMAL) URINALYSIS MICROSCOPIC (09/22/2024 12:06 PM CDT) RBC 0-2 0-2, None Seen /HPF 09/22/2024 12:39 PM CDT [facility] WBC >100(A) 0-2, 3-5, None Seen /HPF 09/22/2024 12:39 PM CDT [facility] BACTERIA Many(A) None Seen, Rare, Few Bacteria/ HPF 09/22/2024 12:39 PM CDT [facility] EPITHELIAL CELLS Moderate(A) None Seen, Few Epi/HPF 09/22/2024 12:39 PM CDT [facility] Mucus Present 09/22/2024 12:39 PM CDT [facility] WHITE CELL CLUMPS Present(A) (none) 09/22/2024 12:39 PM CDT [facility] Urine URINE SPECIMEN / Unknown Non-Blood / Unknown 09/22/2024 12:06 PM CDT 09/22/2024 12:06 PM CDT Narrative [facility] - 09/22/2024 12:39 PM CDT There are numerous leukocytes (packed WBC) which may affect the accuracy of results. Interpret with caution. Amarilis Rincon MD URINE Final Resu lt [facility] [address] [place] [address] * (ABNORMAL) URINE CULTURE (09/22/2024 12:06 PM CDT) CULTURE RESULT(A) 09/24/2024 2:48 PM CDT [facility] CULTURE >100,000 CFU/mL Proteus mirabilis 09/24/2024 2:48 PM CDT [facility] CULTURE 10,000-50,000 CFU/mL Multiple organisms probable contaminants 09/24/2024 2:48 PM CDT [facility] Urine URINE SPECIMEN / Unknown [...] <=0.25: S Proteus mirabilis NITROFURANTOIN 128: R Amarilis Rincon MD MICROBIOLOGY Final Resu lt [facility] [address] [place] [address], [place] * (ABNORMAL) UA W/ SEDIMENT EXAM REFLEXED PER CRITERIA (09/22/2024 12:06 PM CDT) COLOR Yellow Yellow Color 09/22/2024 12:17 PM CDT [facility] CLARITY Cloudy(A) Clear Clarity 09/22/2024 12:17 PM CDT [facility] SPECIFIC GRAVITY,URINE 1.015 1.010, 1.015, 1.020, 1.025 09/22/2024 12:17 PM CDT [facility] PH,URINE 6.0 6.0, 7.0, 8.0, 5.5, 6.5, 7.5, 8.5 09/22/2024 12:17 PM CDT [facility] UROBILINOGEN, QUALITATIVE Normal Normal EU/dl 09/22/2024 12:17 PM CDT [facility] PROTEIN, URINE Negative Negative mg/dL 09/22/2024 12:17 PM CDT [facility] GLUCOSE, URINE >=1000(A) Negative mg/dL 09/22/2024 12:17 PM CDT [facility] KETONES,URINE Negative Negative mg/dL 09/22/2024 12:17 PM CDT [facility] BILIRUBIN,URI NE Negative Negative 09/22/2024 12:17 PM CDT [facility] OCCULT BLOOD,URINE Trace(A) Negative 09/22/2024 12:17 PM CDT [facility] NITRITE Negative Negative 09/22/2024 12:17 PM CDT [facility] LEUKOCYTE ESTERASE Negative Negative 09/22/2024 12:17 PM CDT [facility] Urine URINE SPECIMEN / Unknown Non-Blood / Unknown 09/22/2024 12:06 PM CDT 09/22/2024 12:06 PM CDT us Amarilis Rincon MD URINE Final Resu lt [facility] [address] [place] [address] * (ABNORMAL) PRO-BNP (09/09/2024 3:47 PM CDT) NT PROBNP 3,242(H) <125 pg/mL [facility] Blood BLOOD SPECIMEN / Unknown 09/09/2024 3:47 PM CDT 09/09/2024 3:49 PM CDT us Amarilis Rincon MD SEND OUTS Final Resu lt [facility] [address] [place] [address], [facility] [address] [place] [address] * (ABNORMAL) LIPID PANEL (09/08/2023 12:02 PM CDT) CHOLESTEROL,TOTAL 119 100 - 199 mg/dL 09/08/2023 2:12 PM CDT [facility] Comment: Cholesterol, Total Reference Ranges Desirable <200 mg/dL Borderline 200-239 mg/dL High >=240 mg/dL TRIGLYCERIDES 189(H) <150 mg/dL 09/08/2023 2:12 PM CDT [facility] HDL CHOLESTEROL 32(L) >40 mg/dL 2:12 PM CDT [facility] NON-HDL CHOLESTEROL 87 <145 mg/dl 09/08/2023 2:12 PM CDT [facility] CHOL/HDL RATIO 3.72 <4.50 09/08/2023 2:12 PM CDT [facility] LDL CHOLESTEROL 49 <=130 mg/dL 09/08/2023 2:12 PM CDT [facility] VLDL CHOLESTEROL 38(H) <=30 mg/dL 09/08/2023 2:12 PM CDT [facility] PROVIDER ORDERED STATUS RANDOM 09/08/2023 2:12 PM CDT [facility] Blood BLOOD SPECIMEN / Unknown Venipuncture / Unknown 09/08/2023 12:02 PM CDT 09/08/2023 1:17 PM CDT us Amarilis Rincon MD CHEMISTRY Final Resu lt [facility] [address] [place] [address], [place] * CT CHEST PE STUDY (01/25/2019 4:39 PM CDT) Anatomical Region Laterality Modality CHEST, THORAX, HEART Computed To mography 01/25/2019 4:39 PM CDT Narrative 01/25/2019 4:46 PM CDT EXAM: CT CHEST PE STUDY LOCATION: [facility] MEDICAL IMAGING DATE/TIME: 01/25/2019 4:39 PM INDICATION: Shortness Of Breath. Elevated d-dimer. COMPARISON: None. TECHNIQUE: Helical acquisition through the chest was performed during the arterial phase of contrast enhancement using IV contrast. 2D and 3D reconstructions were performed by the interventional technologist. Dose reduction techniques were used. IV [...] 01/25/2019 EXAM: CT CHEST PE STUDY LOCATION: [facility] MEDICAL IMAGING DATE/TIME: 01/25/2019 4:39 PM INDICATION: Shortness Of Breath. Elevated d-dimer. COMPARISON: None. TECHNIQUE: Helical acquisition through the chest was performed duringthe arterial phase of contrast enhancement using IV contrast. 2D and 3D reconstructions were performed by the interventional technologist. Dose reductiontechniques were used. IV CONTRAST: [...] 11:51 AM CDT) ANTI HCV Non-reacti ve [facility] Blood specimen (specimen) BLOOD SPECIMEN / Unknown 10/06/2007 11:51 AM CDT 10/06/2007 11:50 AM CDT Cherie Nagel MD SEND OUTS Final Result [facility] INTERNAL ZIP [id number] [address] from Last 3 Months or Most Recently Relevant to Health Maintenance Insurance [facility] MEDICARE ADVANTAGE MR [facility] MEDICARE PDGM [facility] MEDICARE ADVANTAGE MR Advance Directives Documents on File Type Date Recorded Patient Supervisor [employer] Expl anation POLST 07/20/2024 Healthcare Directive 08/04/2022 [...] 8:41 PM 02/02/2019 3:21 PM Care Teams Dust Box Worker Relationship Specialty Start Date End Date Jacquie Haley NP [address] [place] [phone] PCP - General Nurse Practitioner - Adult 06/03/23 Shanae Horn [address] [address] [facility] 08/20/22 Amarilis Rincon MD [address] [place] [address] [facility] Family Practice 02/11/23 Helena Dickens, PharmD [address] [place], [place] [phone] Pharmacist Medication Management Pharmacology 06/18/23 Sanjay Harrington [address] [facility] [address] [place], [place] [phone] Cardiology Cardiovascular Disease 08/20/23 Genevieve Peña [address] [place] [address] [facility] Care Guide 10/18/23 Johanne Mix, ARIELLA [address] [place] [address] [facility] Registered Nurse 10/18/[facility] [place] [address] [place] [address] 08/29/24 Jacquie Haley NP [address] [place] [address] [facility] Nurse Practitioner - Adult 10/19/24 Nazanin Norris, [place] [id number] [place], [place] [phone] [facility] Lumber Marker 11/16/24
[2024-12-08 16:11] LABS: C Reactive Protein* < 0.5 mg/dL (0.5-1.0); Slide Review Reflex No
[2024-12-08] MEDS: DOXYCYCLINE HYCLATE 100 MG in 0.9 % SODIUM CHLORIDE Mini-bag 100 ML IVPB (16:20)
[2024-12-08] MEDS: IPRAT-ALBUT 0.5-2.5 MG/3 ML NEB 1 NEB IH ×2 (16:24→21:29)
[2024-12-08 16:25] LABS: Procalcitonin* 0.08 ng/mL (<0.50)
[2024-12-08 16:30] LABS: NT Pro B Type NatriureticPept* 3240 pg/mL (See Note); Troponin I* < 0.01 ng/mL (0.01-0.04)
--- NOTE | 2024-12-08 18:43 | P.IMHP_ITS ---
Assessment and Plan Assessment and plan (1) Atrial fibrillation with rapid ventricular response: Problem comment: -telemetry, serial EKGs, serial troponin I's -oral and IV rate control agents -pharmacy to support with anticoagulation efforts with warfarin with INR goal of 2-3 Status: Acute (2) Acute on chronic diastolic heart failure: Problem comment: -will recheck transthoracic echo -change from oral bumetanide to IV furosemide -measure inputs and outputs, daily weights -low-sodium diet with dietitian to educate patient Status: Acute (3) Pulmonary hypertension: Problem comment: -Echo from 08/24/2024: LVEF 60 65%, RV moderately enlarged with mildly reduced function, moderate aortic stenosis, moderate mitral regurg, severe pulmonary hypertension with right ventricular systolic pressures of 55 mmHg plus right atrial pressure -possibly multifactorial from advanced lung disease as well as valvular cardiomyopathy from underlying valvular disease with moderate to severe tricuspid valve regurgitation, moderate aortic stenosis, moderate mitral regurgitation -due consideration needs to be given to the possibility of referring patient to director of home care hospice for assessment of patient responsiveness to medical management verses lung transplant verses end of life care Status: Acute (4) COPD exacerbation: Problem comment: -continue with efforts to treat for COPD exacerbation Status: Acute (5) Acute on chronic respiratory failure with hypoxia and hypercapnia: Problem comment: -Continue with efforts to manage by addressing AFib RVR, COPD exacerbation, heart failure exacerbation, monitoring Status: Acute (6) Morbid obesity with BMI of 50.0-59.9, adult: Problem comment: BMI 57 in January of 2023 Status: Acute (7) Smoking greater than 40 pack years: Problem comment: States she quit smoking on 12/05/2024. Nicotine patches ordered. Status: Acute (8) Physical debility: Problem comment: - multifactorial including morbid obesity, deconditioning, heart failure, lymphedema, COPD, pulmonary hypertension, valvular cardiomyopathy - PT and OT assessment. Status: Acute (9) Morbid obesity: Status: Acute (10) Valvular cardiomyopathy: Problem comment: -Transthoracic echocardiogram in July of 2024 demonstrated moderate aortic stenosis, moderate mitral regurgitation, moderate to severe tricuspid regurgitation with ejection fraction of 60-65% and severe pulmonary hypertension with right ventricular systolic pressures of 55 mmHg plus right atrial pressure -warrants cardiology consultation consideration Status: Acute Plan 1. Reviewed impression, recommendations with patient 2. Answered her questions to her satisfaction 3. She is agreeable with above stated plans and recommendations Total Time Spent Total Time Spent: 70 minutes Hospitalist- H&P: HPI History of Present Illness Date Seen: 12/08/24 Chief complaint: ill, weakness Narrative: Sydnie Parkinson is a 74 year old woman presents to the emergency department via EMS this afternoon with complaint shortness of breath. Noteworthy, she was discharged from [facility] yesterday, 12/07/2024, and did not have complaint of shortness of breath like she has today. She was in the hospital from 12/05/2024 through 12/07/2024 with COPD exacerbation, acute on chronic hypoxic and hypercapnic respiratory failure, heart failure with preserved ejection fraction exacerbation contributing to some of her respiratory failure. Underlying this she has known severe pulmonary hypertension. Transthoracic echocardiogram obtained on 08/24/2024 remarkable for left ventricular ejection fraction of 60-65%, moderately enlarged right ventricle with reduced function, moderate aortic stenosis, moderate mitral regurgitation, severe pulmonary hypertension with right ventricular systolic pressures of 55 mmHg plus right atrial pressure. During this recent hospitalization she was treated for COPD exacerbation with inhaled bronchodilators, systemic corticosteroids, and antibiotics. She was carefully treated for her acute on chronic respiratory failure with hypoxia and hypercapnia with CPAP and oxygen supplementation. Utilizes CPAP at baseline due to underlying obstructive sleep apnea. Treated for heart failure with IV diuretics and then subsequently switched to oral diuretics. On the day she left the hospital she indicated she was comfortable and ready to return home. She did well overnight in her home. This morning she noted the onset of worsening dyspnea. Try to get through the day but was unable to and thus called EMS. EMS administered nebulized albuterol and she thought she felt a little better but by the time she arrived to the hospital she is dyspneic once again. Was given DuoNebs in the hospital and again had a very short lived benefit from that. Was found to be in AFib with RVR in the hospital. This is new for her. Decision was made to bring her into the hospital for additional stabilization of her advanced underlying conditions. Review of Systems Status of ROS: Reports: 6 or more systems reviewed and unremarkable except as noted in History and below Narrative: Minimal chest discomfort with her dyspnea and tachypnea. Has not had an exacerbation of her cough, still baseline. No syncope or near syncope. No nausea vomiting. More weak and tired. Denies fevers, rigors, diaphoresis. No falls. Unable to care for herself in her home because of the weakness and dyspnea. Pharmacy never did bring her medications to her home that were ordered at time of discharge from the hospital yesterday including prednisone, doxycycline. Patient did not take her bumetanide or metolazone today, claims she did take her bumetanide yesterday. She tells me she has not smoked since she came to the hospital on 12/05/2024. She tells me her intent is to not smoke hereafter. We are currently under and air advisory in our community here. Patient is not outdoors but is currently not utilizing her air conditioner in her home. She makes it very clear that she does not want to be resuscitated or ventilated in the event of cardiopulmonary demise. She tells me she is ready to her once again meet her family members when it is her time to . Medical Decision Making Medical Decision Making Code Status: DNR/DNI resuscitation status in event of cardiopulmonary demise Has patient completed a Health Care Directive: Yes [facility] Medical History (Updated 12/08/24 @ 19:23 by Joe Diana MD) Valvular cardiomyopathy ?I42.8 - Other cardiomyopathies (ICD-10) Acute on chronic respiratory failure with hypoxia and hypercapnia ?J96.21 - Acute and chronic respiratory failure with hypoxia (ICD-10) ?J96.22 - Acute and chronic respiratory failure with hypercapnia (ICD-10) Smoking greater than 40 pack years ?F17.210 - Nicotine dependence, cigarettes, uncomplicated (ICD-10) Urinary incontinence ?R32 - Unspecified urinary incontinence (ICD-10) Chronic obstructive pulmonary disease ?J44.9 - Chronic obstructive pulmonary disease, unspecified (ICD-10) Physical deconditioning ?R53.81 - Other malaise (ICD-10) Physical debility ?R53.81 - Other malaise (ICD-10) Major depressive disorder ?F32.9 - Major depressive disorder, single episode, unspecified (ICD-10) Diabetic peripheral neuropathy associated with type 2 diabetes mellitus ?E11.42 - Type 2 diabetes mellitus with diabetic polyneuropathy (ICD-10) Chronic kidney disease, stage III (moderate) ?N18.30 - Chronic kidney disease, stage 3 unspecified (ICD-10) Migraine ?G43.909 - Migraine, unspecified, not intractable, without status migrainosus (ICD-10) Vitamin D deficiency ?E55.9 - Vitamin D deficiency, unspecified (ICD-10) History of rectal bleeding ?Z87.19 - Personal history of other diseases of the digestive system (ICD-10) Allergic rhinitis ?J30.9 - Allergic rhinitis, unspecified (ICD-10) Tobacco dependence ?F17.200 - Nicotine dependence, unspecified, uncomplicated (ICD-10) Morbid obesity with BMI of 50.0-59.9, adult ?E66.01 - Morbid (severe) obesity due to excess calories (ICD-10) ?Z68.43 - Body mass index [BMI] 50.0-59.9, adult (ICD-10) Chronic acquired lymphedema ?I89.0 - Lymphedema, not elsewhere classified (ICD-10) Obstructive sleep apnea on CPAP ?G47.33 - Obstructive sleep apnea (adult) (pediatric) (ICD-10) Anticoagulation goal of INR 2 to 3 ?Z51.81 - Encounter for therapeutic drug level monitoring (ICD-10) ?Z79.01 - computer terminal operator (current) use of anticoagulants (ICD-10) Chronic anticoagulation ?Z79.01 - [facility] (current) use of anticoagulants (ICD-10) Paroxysmal atrial fibrillation ?I48.0 - Paroxysmal atrial fibrillation (ICD-10) History of tachycardia-bradycardia syndrome ?Z86.79 - Personal history of other diseases of the circulatory system (ICD- 10) Pulmonary hypertension ?I27.20 - Pulmonary hypertension, unspecified (ICD-10) Heart failure with preserved ejection fraction ?I50.30 - Unspecified diastolic (congestive) heart failure (ICD-10) Chronic diastolic heart failure ?I50.32 - Chronic diastolic (congestive) heart failure (ICD-10) Acute hypoxic respiratory failure ?J96.01 - Acute respiratory failure with hypoxia (ICD-10) Insulin-requiring or dependent type II diabetes mellitus ?E11.9 - Type 2 diabetes mellitus without complications (ICD-10) ?Z79.4 - [facility] (current) use of insulin (ICD-10) Surgical History H/O hernia repair ?Z98.890 - Other specified postprocedural states (ICD-10) ?Z87.19 - Personal history of other diseases of the digestive system (ICD-10) History of total abdominal hysterectomy and bilateral salpingo-oophorectomy ?Z90.710 - Acquired absence of both cervix and uterus (ICD-10) ?Z90.722 - Acquired absence of ovaries, bilateral (ICD-10) ?Z90.79 - Acquired absence of other genital organ(s) (ICD-10) History of total left knee replacement (TKR) ?Z96.652 - Presence of left artificial knee joint (ICD-10) History of total right knee replacement ?Z96.651 - Presence of right artificial knee joint (ICD-10) History of total left hip replacement ?Z96.642 - Presence of left artificial hip joint (ICD-10) History of total right hip replacement ?Z96.641 - Presence of right artificial hip joint (ICD-10) Family History Mother Cancer Social History Narrative: Lives alone. Receives extra help and support in her home due to underlying evolving physical debility and physically deconditioned state. Designates her cousin, Heather Walker, as her primary healthcare power of trial attorney should that be required, . Secondary POA would be her brother, Elfego Parkinson. Requests DNR DNI resuscitation status in the event of c ardiopulmonary demise. Smokes 1-1.5 pack of cigarettes a day for over 50 years. Does not drink alcohol. She gets around her home with an electric scooter. She is able to stand and walk holding on with a cane or holding onto zhao furniture counter tops. She reports that she thinks things are going well in her home situation. She has [facility] home healthcare with Dr. Rincon and Jacquie Haley [facility] and nursing care frequently doing home visits. What is your current living situation?: I presently have a place to live Problems where you live: no known problems Problems where you live details: n/a In the past 12 months, utilities in danger of being shut off: no In past 12 months, lack of transportation kept you from medical appts, meetings, work, or getting things needed for daily living: yes In the past 12 mos, have been you worried that your food would run out before you had money to buy more?: never true In the past 12 mos, the food you bought just didn't last and you didn't have money to buy more?: never true Highest level of school completed/degree received: some college, no degree Smoking Status: Current every day smoker What tobacco products do you use: cigarettes Smoking packs per day: 1 Smoking cigarettes per day: 20.0 Smoking quit date/years: >15 years ago Do you use any of these nicotine containing products: None How often do you have a drink containing alcohol: never How often do you have six or more drinks on one occasion: Never AUDIT-C Alcohol total score: 0 Non-prescribed substance use: denies use Caffeine: Yes How often does anyone, including family, friends and others, physically hurt you : never How often does anyone, including family, friends and others, insult or talk down to you: never How often does anyone, including family, friends and others, threaten you with harm: never How often does anyone, including family, friends and others, scream or curse at you: never service: No Health Related Social Needs: transportation insecurity (Z59.82) Meds Home Medications and Allergies Home Medications ?Medication ?Instructions ?Recorded ?Confirmed ?Type acetaminophen 500 mg tablet 1,000 mg PO Q8H PRN 12/08/24 History (Tylenol Extra Strength) albuterol sulfate 90 mcg/actuation 2 puff inhalation Q 4H PRN dyspnea 04/07/23 12/08/24 History aerosol inhaler atorvastatin 80 mg tablet 80 mg PO HS 04/07/23 5 History bumetanide 1 mg tablet 2 mg PO BID@09,16 04/07/23 0 12/08/24 History cholecalciferol (vitamin D3) 25 25 mcg PO DAILY 12/08/24 History mcg (1,000 unit) capsule diltiazem HCl 240 mg 240 mg PO DAILY 04/07/2306/22 History capsule,extended release 24 hr insulin glargine 100 unit/mL (3 25 unit subcut HS 03/2912/08/24 History mL) subcutaneous pen (Lantus Solostar U-100 Insulin) metoprolol succinate 200 mg 200 mg PO DAILY 04/07/23 0 12/08/24 History tablet,extended release 24 hr potassium chloride 20 mEq 40 meq PO BID 04/07/2312/08 History tablet,extended release empagliflozin 25 mg tablet 25 mg PO DAILY 08/24/2406/22 History (Jardiance) gabapentin 300 mg capsule 300 - 600 mg PO BID 08/24/24 12/08/24 History metolazone 2.5 mg tablet 5 mg PO DAILY PRN 08/24/24 0 12/08/24 History nystatin 100,000 unit/gram topical 1 applic topical BI D PRN 08/24/24 12/08/24 History cream nystatin 100,000 unit/gram topical 1 applic topical QI D PRN 08/24/24 12/08/24 History powder doxycycline hyclate 100 mg tablet 100 mg PO BID #6 tab s 12/07/24 12/08/24 Rx ipratropium 0.5 mg-albuterol 3 mg 2.5 ml inhalation QI D #120 mL 12/07/24 12/08/24 Rx (2.5 mg base)/3 mL nebulization soln nicotine 21 mg/24 hr daily 1 patch transdermal Q24H #2 8 ea 12/07/24 12/08/24 Rx transdermal patch prednisone 20 mg tablet 40 mg (2 x 20 mg) PO DAILYWM #6 12/07/24 12/08/24 Rx tabs warfarin 2.5 mg tablet 2.5 - 3.75 mg (1 - 1.5 x 2.5 mg) 12/07/24 12/08/24 Rx PO QPM #45 tabs doxycycline hyclate 100 mg capsule 100 mg PO BID 12/0812/08/24 History Allergies Allergy/AdvReac Type Severity Reaction Status Date / Time No Known Drug Allergies Allergy Verified 12/08/24 15:00 Exam Narrative: Exam Narrative: Examined patient in the emergency department. She has her CPAP machine on. Has cyanosis to her nose and lips and fingers and toes. Saturating around 90%. R espiratory rate is 24 26 at rest. Appears comfortable. Able to carry on conversation with me. Vision and hearing are adequate. Alert and oriented x4. Friendly, articulate, cooperative. Morbidly obese. BMI 53. Conjugate gaze. Mallampati class 4 airway. Full neck. No obvious lymphadenopathy in the pre or postauricular chains, anterior or posterior cervical chains, supra or infraclavicular fossa or axilla bilaterally. Inspiratory and expiratory wheezing. No CVA tenderness to percussion. Heart tones distant but chaotic and tachycardic. PMI not obviously laterally displaced. Abdomen is obese with active bowel sounds, soft, nontender. Bilateral lower extremity edema up to her knees. No focal motor neurologic deficit. Const: Vital Signs, click to edit/add: Vital Signs - 24 hr 12/08/24 14:48 12/08/24 14:49 12/08/24 14:52 Temperature Pulse Rate 109 H 119 H 124 H Pulse Rate [Pulse Oximeter] Respiratory Rate Blood Pressure 99/76 128/113 H Blood Pressure [Le ft Upper Arm] Pulse Oximetry 100 96 93 Oxygen Delivery Me thod CPAP CPAP CPAP Oxygen Flow Rate 2 2 2 12/08/24 14:53 12/08/24 15:00 12/08/24 15:02 Temperature 96.8 F L Pulse Rate 112 H 102 H Pulse Rate [Pulse Oximeter] 110 H Respiratory Rate 24 Blood Pressure 130/88 Blood Pressure [Le ft Upper Arm] 99/76 Pulse Oximetry 97 91 90 Oxygen Delivery Me thod CPAP CPAP CPAP Oxygen Flow Rate 2 2 12/08/24 15:19 12/08/24 15:30 12/08/24 15:35 Temperature Pulse Rate 118 H 108 H Pulse Rate [Pulse Oximeter] Respiratory Rate Blood Pressure 135/72 Blood Pressure [Le ft Upper Arm] Pulse Oximetry 80 L 91 Oxygen Delivery Me thod CPAP CPAP CPAP Oxygen Flow Rate 2 2 2 12/08/24 15:45 12/08/24 15:48 12/08/24 15:49 Temperature Pulse Rate 121 H 102 H Pulse Rate [Pulse Oximeter] Respiratory Rate 41 H 29 H 28 H Blood Pressure 128/84 Blood Pressure [Le ft Upper Arm] Pulse Oximetry 87 L 89 Oxygen Delivery Me thod CPAP CPAP CPAP Oxygen Flow Rate 2 2 2 12/08/24 16:00 12/08/24 16:02 12/08/24 16:15 Temperature Pulse Rate 106 H 104 H 95 Pulse Rate [Pulse Oximeter] Respiratory Rate 62 H 31 H 27 H Blood Pressure 109/86 Blood Pressure [Le ft Upper Arm] Pulse Oximetry 90 91 90 Oxygen Delivery Me thod CPAP CPAP CPAP Oxygen Flow Rate 2 2 2 12/08/24 16:18 12/08/24 16:30 12/08/24 16:32 Temperature Pulse Rate 108 H 111 H 115 H Pulse Rate [Pulse Oximeter] Respiratory Rate 27 H 41 H 23 Blood Pressure 111/52 L 126/89 Blood Pressure [Le ft Upper Arm] Pulse Oximetry 84 L 83 L 93 Oxygen Delivery Me thod CPAP CPAP CPAP Oxygen Flow Rate 2 2 2 12/08/24 16:33 12/08/24 16:45 12/08/24 16:47 Temperature Pulse Rate 106 H 124 H 108 H Pulse Rate [Pulse Oximeter] Respiratory Rate 21 24 33 H Blood Pressure 137/71 Blood Pressure [Le ft Upper Arm] Pulse Oximetry 96 89 91 Oxygen Delivery Me thod CPAP CPAP CPAP Oxygen Flow Rate 2 2 2 12/08/24 17:00 12/08/24 17:02 12/08/24 17:15 Temperature Pulse Rate 103 H 106 H 113 H Pulse Rate [Pulse Oximeter] Respiratory Rate 29 H 28 H 23 Blood Pressure 118/80 Blood Pressure [Le ft Upper Arm] Pulse Oximetry 92 93 90 Oxygen Delivery Me thod CPAP CPAP CPAP Oxygen Flow Rate 2 2 2 12/08/24 17:30 12/08/24 17:32 12/08/24 17:45 Temperature Pulse Rate 112 H 108 H 112 H Pulse Rate [Pulse Oximeter] Respiratory Rate 55 H 51 H 27 H Blood Pressure 114/83 Blood Pressure [Le ft Upper Arm] Pulse Oximetry 91 88 89 Oxygen Delivery Me thod CPAP CPAP CPAP Oxygen Flow Rate 2 2 2 12/08/24 17:48 12/08/24 18:00 12/08/24 18:02 Temperature Pulse Rate 108 H 111 H 108 H Pulse Rate [Pulse Oximeter] Respiratory Rate 20 28 H 27 H Blood Pressure 135/91 H 134/77 Blood Pressure [Le ft Upper Arm] Pulse Oximetry 90 91 91 Oxygen Delivery Me thod CPAP CPAP CPAP Oxygen Flow Rate 2 2 2 12/08/24 18:15 12/08/24 18:17 Temperature Pulse Rate 114 H 119 H Pulse Rate [Pulse Oximeter] Respiratory Rate 34 H 26 H Blood Pressure 145/86 H Blood Pressure [Le ft Upper Arm] Pulse Oximetry 90 90 Oxygen Delivery Me thod CPAP CPAP Oxygen Flow Rate 2 2 Hospitalist - H&P: Result Labs Labs: Short CBC 06/12/25 Range/Units 15:30 WBC 10.63 (4.50-11.00) K/uL Hgb 18.0 H (12.0-16.0) gm/dL Hct 55.8 H (33.0-51.0) % Plt Count 160 (140-440) K/uL BMP 12/08/24 15:30 Sodium 141 Potassium 4.0 Chloride 101 Carbon Dioxide 30 BUN 54 H Creatinine 1.2 Glucose 167 H Calcium 8.4 Cardiac Enzymes 12/08/24 Range/Units 15:30 Troponin I < 0.01 (0.01-0.04) ng/mL Liver Function 12/08/24 Range/Units 15:30 Total Bilirubin 0.9 (0.1-1.5) mg/dL AST 35 (12-35) U/L ALT 31 (4-35) U/L Alkaline Phosphatase 77 (40-150) U/L Albumin 4.0 (3.3-5.0) g/dL ECG Attestation: I personally reviewed and interpreted this ECG as follows: Interpretation: Atrial fibrillation with rapid ventricular response rate of 127 beats per minute. No obvious ischemic or infarct pattern. Imaging Chest x-ray: Attestation: I have reviewed the pertinent imaging results. Radiologist's impression: IMPRESSIONS: 1. Small lung volumes are present with mild pulmonary vascular congestion and perihilar interstitial edema. 2. The central pulmonary arteries are enlarged and likely due to pulmonary hypertension. 3. Moderate, stable cardiomegaly is noted.
[2024-12-08 19:08] LABS: Magnesium* 1.4 mg/dL (1.5-2.6)
[2024-12-08 19:20] LABS: HCO3 VBG 37 mmol/L (21-28); Lactate* 1.3 mmol/L (0.5-1.9); PO2 VBG < 30.1 mmHG (25-47); pH VBG 7.354 (7.32-7.43)
[2024-12-08 19:36] LABS: PCO2 VBG 67 mmHG (40-50)
[2024-12-08 20:01] LABS: Troponin I* < 0.01 ng/mL (0.01-0.04)
[2024-12-08] MEDS: NICOTINE 21 MG PATCH 1 PATCH TRANSDERMA (21:27)
[2024-12-08] MEDS: DOXYCYCLINE HYCLATE 100 MG PO (21:28)
[2024-12-08] MEDS: INSULIN GLARGINE,HUM.REC.ANLOG 100 UNIT/ML INSULN.PEN 25 UNIT SUBCUT (21:28)
[2024-12-08] MEDS: WARFARIN 2.5 MG TABLET 3.75 MG PO (21:29)
[2024-12-08] MEDS: POTASSIUM CHLORIDE 10 MEQ CAPSULE ER 40 MEQ PO (21:29)
[2024-12-08] MEDS: SODIUM CHLORIDE 0.9 % (FLUSH) 10 ML SYRINGE 5 ML IVF (21:29)
[2024-12-08] MEDS: 0.9 % SODIUM CHLORIDE 250 ml IV (21:39)
[2024-12-08 22:20] LABS: HCO3 VBG 36 mmol/L (21-28); PCO2 VBG 59 mmHG (40-50); PO2 VBG 39.8 mmHG (25-47); pH VBG 7.394 (7.32-7.43)
[2024-12-08 22:34] LABS: PCR FLU A Negative PCR FLU A (Negative); PCR FLU B Negative PCR FLU B (Negative); PCR RSV Negative PCR RSV (Negative); SARS PCR* Negative SARS-CoV-2 (Negative)
[2024-12-08] MEDS: dilTIAZem 5 MG/ML inj 10 MG IVP (23:19)
[2024-12-09] VITALS (37 sets, daily range): BP systolic 91–145; BP diastolic 54–106; PULSE 79–129; RESP 16–25; TEMP 36.6–37.3; O2SAT 87–93; BMI 53.4
[2024-12-09] MEDS: dilTIAZem 30 MG TABLET PO (03:43)
--- NOTE | 2024-12-09 06:47 | PC.NURSE ---
Pt pleasant, alert and oriented. Tachycardic throughout shift, otherwise VSS. Tele reads Afib with RVR. ?Heart rate jumping around 120-140s around 2300, MD notified (Adalgisa), IV diltiazem given per MD order; rate responded accordingly. PRN diltiazem given around 0330 for heart rate consistently over 100. Nicotine patch on the left shoulder. Pt has coarse, non-productive cough. O2 sats remained 85-90%, titrated O2 accordingly per RT. Home CPAP in use. Pure wick in place. Pt refused right SCD, tolerating left. Pt in bed, appears to be resting, call light within reach. ?
[2024-12-09 06:50] LABS: HCO3 VBG 33 mmol/L (21-28); PCO2 VBG 53 mmHG (40-50); PO2 VBG 75.5 mmHG (25-47); pH VBG 7.399 (7.32-7.43)
[2024-12-09 07:10] LABS: Hematocrit 51.4 % (33.0-51.0); Hemoglobin* 16.6 gm/dL (12.0-16.0); Mean Corpuscular HGB Conc 32 gm/dL (32-36); Mean Corpuscular Hemoglobin 31 pg (26-34); Mean Corpuscular Volume 97 fL (80-100); Platelet Count* 203 K/uL (140-440); Red Blood Count 5.31 m/uL (4.00-5.20); White Blood Count* 7.31 K/uL (4.50-11.00)
[2024-12-09 07:21] LABS: Slide Review Reflex No
[2024-12-09 07:22] LABS: INR 1.94 (0.91-1.10); Prothrombin Time 23.2 Seconds
[2024-12-09 07:43] LABS: Chloride* 100 mmol/L (96-114); Potassium* 4.6 mmol/L (3.6-5.1); Sodium* 139 mmol/L (135-149)
[2024-12-09 07:46] LABS: Anion Gap 8 mEq/L (7-15); Blood Urea Nitrogen* 56 mg/dL (7-30); Carbon Dioxide* 31 mmol/L (20-32); Creatinine* 1.1 mg/dL (0.5-1.5); Estimated Glomerular Filt Rate 53 ml/min; Phosphorus* 4.9 mg/dL (2.5-4.5)
[2024-12-09 07:47] LABS: Calcium* 8.2 mg/dL (8.4-10.6); Glucose* 286 mg/dL (60-115); Magnesium* 1.6 mg/dL (1.5-2.6)
[2024-12-09 07:48] LABS: Hemoglobin A1C* 9.1 % (0-5.6)
[2024-12-09 08:05] LABS: Troponin I* < 0.01 ng/mL (0.01-0.04)
[2024-12-09] MEDS: DIGOXIN 250 MCG/ML inj 500 MCG IV (08:26)
[2024-12-09] MEDS: predniSONE 20 MG TABLET 40 MG PO (08:26)
[2024-12-09] MEDS: FUROSEMIDE 10 MG/ML inj 40 MG IVP ×2 (08:26→11:45)
[2024-12-09] MEDS: POTASSIUM CHLORIDE 10 MEQ CAPSULE ER 40 MEQ PO ×2 (09:28→21:05)
[2024-12-09] MEDS: INSULIN ASPART 100 UNIT/ML SUBCUT ×2 (09:29→17:22)
[2024-12-09] MEDS: INSULIN GLARGINE,HUM.REC.ANLOG 100 UNIT/ML INSULN.PEN 25 UNIT SUBCUT (09:31)
[2024-12-09] MEDS: METOPROLOL SUCCINATE (XL) 100 MG TAB 200 MG PO (09:32)
[2024-12-09] MEDS: DOXYCYCLINE HYCLATE 100 MG PO ×2 (09:32→21:05)
[2024-12-09] MEDS: dilTIAZem 240 MG CAP (CD) PO (09:32)
[2024-12-09] MEDS: SODIUM CHLORIDE 0.9 % (FLUSH) 10 ML SYRINGE 5 ML IVF ×2 (09:33→21:05)
[2024-12-09] MEDS: EMPAGLIFLOZIN 25 MG TABLET PO (09:33)
--- NOTE | 2024-12-09 09:35 | REH.OT ---
OT: Order received, chart reviewed, met with patient and she is currently with resting HR 140s, use of Cpap and O2 sats 84-90% with talking. Therapies to hold today. Patient reports chronic back pain in bed and set up lift chair recliner to aid positioning when patient able to progress up to chair due to assist in positioning with chronic pain and respiratory status.
--- NOTE | 2024-12-09 10:39 | PC.SOCIAL ---
Addendum entered by ANNA MARIE Gtz 12/09/24 11:52: Discharge planning: aircraft worker received a call from pt's brother, Marcus Parkinson #[phone], inquiring about services that social workers here at the hospital can assist with. Marcus was concerned that if pt needed to go to a care center after the hospital he would not be able to help her because he lives 4[place]5 hours away. aircraft worker reassured pt's brother that the social work professor department at the hospital will assist with discharge planning needs for the pt. Pt's brother was thankful for the call. Social work to follow-up as needed. Original Note: Discharge planning: aircraft worker attempted to meet with pt this morning. She wasn't doing well and was in the process of being moved to [facility]. aircraft worker will attempt to meet with her later this afternoon. Social work to follow-up as needed.
--- NOTE | 2024-12-09 10:40 | REH.PT ---
Attempted to see pt today for evaluation but pt refused, will attempt evaluation tomorrow.
[2024-12-09] MEDS: dilTIAZem HCL 125 MG in 0.9 % SODIUM CHLORIDE 100 ml 100 ML 10 MG IVPB (10:48)
[2024-12-09] MEDS: PERFLUTREN LIPID MICROSPHERES 2 ML VIAL IVP (11:43)
[2024-12-09] MEDS: CLOTRIMAZOLE 1 % CREAM 1 APPLIC TOPICAL (13:35)
--- NOTE | 2024-12-09 13:35 | P.IMPN_ITS ---
Assessment and Plan Assessment and plan (1) Atrial fibrillation with rapid ventricular response: Problem comment: -telemetry, serial EKGs, serial troponin I's -adding oral SA cardizem was ineffective overnight; moved to CCU for dilt drip and IV digoxin. Increasing IV diuresis. -pharmacy to support with anticoagulation efforts with warfarin with INR goal of 2-3 Status: Acute (2) Acute on chronic heart failure with preserved ejection fraction (HFpEF): Problem comment: -currently AFib with RVR, acute on chronic respiratory failure -echocardiogram 12/09/2024: Signs of fluid overload. Normal LV and RV function. Normal EF. Mod TR related to pulmonary hypertension. RV pressure is 35 + RAP. Severe by atrial enlargement. -IV Lasix 40 mg b.i.d. was ordered on admission, increasing 80mg BID IV. Home dose is Bumex 2 mg b.i.d. Status: Acute (3) Acute on chronic respiratory failure with hypoxia and hypercapnia: Problem comment: -Continue with efforts to manage by addressing AFib RVR, COPD exacerbation, heart failure exacerbation -CO2 elevated but manageable -continue prednisone and doxy for previously dx and managed COPD exacerbation. Status: Acute (4) Pulmonary hypertension: Problem comment: -Echo from 12/09/2024: Normal LV and RV function. Normal EF. Mod TR related to pulmonary hypertension. RV pressure os 35 + RAP. Severe by atrial enlargement. -possibly multifactorial from advanced lung disease as well as valvular cardiomyopathy from underlying valvular disease with moderate to severe tricuspid valve regurgitation, moderate aortic stenosis, moderate mitral regurgitation -due consideration needs to be given to the possibility of referring patient to dental secretary for assessment of patient responsiveness to medical management verses lung transplant verses end of life care Status: Acute (5) Obstructive sleep apnea on CPAP: Problem comment: On home CPAP. She does have some hypoxia at night. Unfortunately she retained CO2 if supplemental oxygen is given. Status: Acute (6) Insulin-requiring or dependent type II diabetes mellitus: Problem comment: monitor with her home meds, SSI. A1C >9 Status: Chronic (7) Chronic obstructive pulmonary disease: Status: Chronic (8) Chronic kidney disease, stage III (moderate): Problem comment: Status: Acute (9) Skin tear: Problem comment: Skin tear and right novak. Does not appear to be currently infected. Monitor and provide wound care Status: Acute (10) Physical debility: Problem comment: - multifactorial including morbid obesity, deconditioning, heart failure, lymphedema, COPD, pulmonary hypertension, valvular cardiomyopathy - PT and OT assessment. Status: Acute (11) Morbid obesity with BMI of 50.0-59.9, adult: Problem comment: BMI 53 Status: Acute (12) Chronic anticoagulation: Problem comment: - currently on warfarin for afib - 3/3 INR therapeutic Status: Acute Subjective Date Seen: 12/09/24 Interval history: Daily Progress Note - Hospital Medicine #: 2 CC: Dyspnea, hypoxia, weakness 24 HOUR UPDATE: Pt pleasant, alert and oriented. Tachycardic throughout shift, otherwise VSS. Tele reads Afib with RVR. ?Heart rate jumping around 120-140s around 2300, MD notified (Adalgisa), IV diltiazem given per MD order; rate responded accordingly. PRN diltiazem given around 0330 for heart rate consistently over 100. Nicotine patch on the left shoulder. Pt has coarse, non-productive cough. O2 sats remained 85-90%, titrated O2 accordingly per RT. Home CPAP in use. Pure wick in place. Pt refused right SCD, tolerating left. Pt in bed, appears to be resting, call light within reach. ? When I evaluate Wanda this morning, she is having trouble taking off her CPAP as she gets very dyspneic even resting in bed. Her sats are dropping into the high 70s low 80s. However replacing her CPAP at 2 L bleed and O2 corrects the hypoxemia. Her VBG shows that she retain CO2 but the level is below her previous higher levels. She is mildly anxious. Her heart rate has been consistently over 120 since my arrival this morning. We made the decision to move her over to the CCU. I started the diltiazem drip. I ordered a digoxin bolus with follow on IV doses q.8 hours x2 doses. I also increased her Lasix from the 40 mg IV b.i.d. ordered at admission to 80 mg b.i.d.. Her echocardiogram was done early this morning and shows actually improved pulmonary hypertension, however there were signs of fluid overload necessitating knee increased IV furosemide diuresis. No chest pain. No fever. Baseline cough. As I evaluated her and discussed the plan her brother, Marcus, was on the phone by speaker. We did discuss that if her rate did not come under better control we would consider cardioversion. She is chronically anticoagulated with warfarin. Notable Labs, Micro, Rads, Interventions: CBC is unremarkable. INR is 1.9 VBG is stable. CO2 is 53. Chemistries are quite reassuring. She has known chronic kidney disease and this is at her baseline. BUN 56, creatinine 1.1, GFR 50 A1c 9.1 Mildly hypocalcemic with known secondary hyperparathyroidism. Medium is normal. Troponin is undetectable Her BNP from current and most previous admissions are the same. Her chest x-ray shows evidence of mild CHF and pulmonary hypertension Echo: As reported she has a normal EF. Globally her LV and RV function are intact. She has moderate TR, a dilated inferior vena cava, a dilated ascending aorta at 4.2 cm. No significant or AR. Severe biatrial enlargement. Objective: chronically ill appearing; mild resp distress. Vitals: see above Lungs: Clear but decreased at the bases; shallow inspiration. Cardiac: irregular. no harsh murmurs. Edema: chronic lymphedema noted. Disposition/Potential discharge - will likely need short term rehab. Today I spent 50minutes seeing the patient, reviewing [facility] and [facility] notes/diagnostics, discussing the care plan with our care time that includes social work, PT/OT, pharmacy, RT, halfway and documenting my impressions and plan in the medical record. Prolonged Physician Services [id number] ([facility]) in conjunction with: [id number] (subsequent visit; 50 mins + 15 mins prolonged services = 65 mins total) I then went back for 15 mins to discuss the findings of ..... Exam Const: Vital Signs, click to edit/add: Vital Signs - 24 hr 12/08/24 14:48 12/08/24 14:49 12/08/24 14:52 Temperature Pulse Rate 109 H 119 H 124 H Pulse Rate [Pulse Oximeter] Pulse Rate [Right Radial] Respiratory Rate Blood Pressure 99/76 128/113 H Blood Pressure [Le ft Arm] Blood Pressure [Le ft Upper Arm] Pulse Oximetry 100 96 93 Oxygen Delivery Me thod CPAP CPAP CPAP Oxygen Flow Rate 2 2 2 Fraction of Inspir ed Oxygen 12/08/24 14:53 12/08/24 15:00 12/08/24 15:02 Temperature 96.8 F L Pulse Rate 112 H 102 H Pulse Rate [Pulse Oximeter] 110 H Pulse Rate [Right Radial] Respiratory Rate 24 Blood Pressure 130/88 Blood Pressure [Le ft Arm] Blood Pressure [Le ft Upper Arm] 99/76 Pulse Oximetry 97 91 90 Oxygen Delivery Me thod CPAP CPAP CPAP Oxygen Flow Rate 2 2 Fraction of Inspir ed Oxygen 12/08/24 15:19 12/08/24 15:30 12/08/24 15:35 Temperature Pulse Rate 118 H 108 H Pulse Rate [Pulse Oximeter] Pulse Rate [Right Radial] Respiratory Rate Blood Pressure 135/72 Blood Pressure [Le ft Arm] Blood Pressure [Le ft Upper Arm] Pulse Oximetry 80 L 91 Oxygen Delivery Me thod CPAP CPAP CPAP Oxygen Flow Rate 2 2 2 Fraction of Inspir ed Oxygen 12/08/24 15:45 12/08/24 15:48 12/08/24 15:49 Temperature Pulse Rate 121 H 102 H Pulse Rate [Pulse Oximeter] Pulse Rate [Right Radial] Respiratory Rate 41 H 29 H 28 H Blood Pressure 128/84 Blood Pressure [Le ft Arm] Blood Pressure [Le ft Upper Arm] Pulse Oximetry 87 L 89 Oxygen Delivery Me thod CPAP CPAP CPAP Oxygen Flow Rate 2 2 2 Fraction of Inspir ed Oxygen 12/08/24 16:00 12/08/24 16:02 12/08/24 16:15 Temperature Pulse Rate 106 H 104 H 95 Pulse Rate [Pulse Oximeter] Pulse Rate [Right Radial] Respiratory Rate 62 H 31 H 27 H Blood Pressure 109/86 Blood Pressure [Le ft Arm] Blood Pressure [Le ft Upper Arm] Pulse Oximetry 90 91 90 Oxygen Delivery Me thod CPAP CPAP CPAP Oxygen Flow Rate 2 2 2 Fraction of Inspir ed Oxygen 12/08/24 16:18 12/08/24 16:30 12/08/24 16:32 Temperature Pulse Rate 108 H 111 H 115 H Pulse Rate [Pulse Oximeter] Pulse Rate [Right Radial] Respiratory Rate 27 H 41 H 23 Blood Pressure 111/52 L 126/89 Blood Pressure [Le ft Arm] Blood Pressure [Le ft Upper Arm] Pulse Oximetry 84 L 83 L 93 Oxygen Delivery Me thod CPAP CPAP CPAP Oxygen Flow Rate 2 2 2 Fraction of Inspir ed Oxygen 12/08/24 16:33 12/08/24 16:45 12/08/24 16:47 Temperature Pulse Rate 106 H 124 H 108 H Pulse Rate [Pulse Oximeter] Pulse Rate [Right Radial] Respiratory Rate 21 24 33 H Blood Pressure 137/71 Blood Pressure [Le ft Arm] Blood Pressure [Le ft Upper Arm] Pulse Oximetry 96 89 91 Oxygen Delivery Me thod CPAP CPAP CPAP Oxygen Flow Rate 2 2 2 Fraction of Inspir ed Oxygen 12/08/24 17:00 12/08/24 17:02 12/08/24 17:15 Temperature Pulse Rate 103 H 106 H 113 H Pulse Rate [Pulse Oximeter] Pulse Rate [Right Radial] Respiratory Rate 29 H 28 H 23 Blood Pressure 118/80 Blood Pressure [Le ft Arm] Blood Pressure [Le ft Upper Arm] Pulse Oximetry 92 93 90 Oxygen Delivery Me thod CPAP CPAP CPAP Oxygen Flow Rate 2 2 2 Fraction of Inspir ed Oxygen 12/08/24 17:30 12/08/24 17:32 12/08/24 17:45 Temperature Pulse Rate 112 H 108 H 112 H Pulse Rate [Pulse Oximeter] Pulse Rate [Right Radial] Respiratory Rate 55 H 51 H 27 H Blood Pressure 114/83 Blood Pressure [Le ft Arm] Blood Pressure [Le ft Upper Arm] Pulse Oximetry 91 88 89 Oxygen Delivery Me thod CPAP CPAP CPAP Oxygen Flow Rate 2 2 2 Fraction of Inspir ed Oxygen 12/08/24 17:48 12/08/24 18:00 12/08/24 18:02 Temperature Pulse Rate 108 H 111 H 108 H Pulse Rate [Pulse Oximeter] Pulse Rate [Right Radial] Respiratory Rate 20 28 H 27 H Blood Pressure 135/91 H 134/77 Blood Pressure [Le ft Arm] Blood Pressure [Le ft Upper Arm] Pulse Oximetry 90 91 91 Oxygen Delivery Me thod CPAP CPAP CPAP Oxygen Flow Rate 2 2 2 Fraction of Inspir ed Oxygen 12/08/24 18:15 12/08/24 18:17 12/08/24 18:46 Temperature Pulse Rate 114 H 119 H Pulse Rate [Pulse Oximeter] Pulse Rate [Right Radial] Respiratory Rate 34 H 26 H Blood Pressure 145/86 H Blood Pressure [Le ft Arm] Blood Pressure [Le ft Upper Arm] Pulse Oximetry 90 90 87 L Oxygen Delivery Me thod CPAP CPAP Oxygen Flow Rate 2 2 Fraction of Inspir ed Oxygen 12/08/24 18:46 12/08/24 19:00 12/08/24 19:00 Temperature 97.4 F L 97.1 F L Pulse Rate Pulse Rate [Pulse Oximeter] 122 H Pulse Rate [Right Radial] 116 H Respiratory Rate 26 H 20 Blood Pressure Blood Pressure [Le ft Arm] 139/106 H 133/89 Blood Pressure [Le ft Upper Arm] Pulse Oximetry 87 L 85 L 85 L Oxygen Delivery Me thod Nasal Cannula CPAP Oxygen Flow Rate 2 5 Fraction of Inspir ed Oxygen 12/08/24 19:45 12/08/24 20:00 12/08/24 23:00 Temperature Pulse Rate 111 H Pulse Rate [Pulse Oximeter] Pulse Rate [Right Radial] Respiratory Rate 20 Blood Pressure Blood Pressure [Le ft Arm] Blood Pressure [Le ft Upper Arm] Pulse Oximetry 85 L 90 Oxygen Delivery Me thod CPAP Oxygen Flow Rate 4 Fraction of Inspir ed Oxygen 12/08/24 23:00 12/08/24 23:30 12/08/24 23:30 Temperature 98.0 F Pulse Rate 114 H Pulse Rate [Pulse Oximeter] 109 H 125 H Pulse Rate [Right Radial] Respiratory Rate 22 22 Blood Pressure Blood Pressure [Le ft Arm] 131/95 H Blood Pressure [Le ft Upper Arm] Pulse Oximetry 91 Oxygen Delivery Me thod CPAP Oxygen Flow Rate Fraction of Inspir ed Oxygen 12/08/24 23:40 12/08/24 23:45 12/09/24 00:05 Temperature Pulse Rate Pulse Rate [Pulse Oximeter] Pulse Rate [Right Radial] Respiratory Rate Blood Pressure Blood Pressure [Le ft Arm] 128/94 H 117/87 124/83 Blood Pressure [Le ft Upper Arm] Pulse Oximetry Oxygen Delivery Me thod Oxygen Flow Rate Fraction of Inspir ed Oxygen 12/09/24 00:10 12/09/24 00:15 12/09/24 00:20 Temperature Pulse Rate Pulse Rate [Pulse Oximeter] 106 H Pulse Rate [Right Radial] Respiratory Rate Blood Pressure Blood Pressure [Le ft Arm] 132/83 91/74 106/82 Blood Pressure [Le ft Upper Arm] Pulse Oximetry Oxygen Delivery Me thod Oxygen Flow Rate Fraction of Inspir ed Oxygen 12/09/24 00:25 12/09/24 00:30 12/09/24 00:35 Temperature Pulse Rate Pulse Rate [Pulse Oximeter] 110 H 109 H Pulse Rate [Right Radial] Respiratory Rate Blood Pressure Blood Pressure [Le ft Arm] 124/54 L 128/82 120/76 Blood Pressure [Le ft Upper Arm] Pulse Oximetry Oxygen Delivery Me thod Oxygen Flow Rate Fraction of Inspir ed Oxygen 12/09/24 00:50 12/09/24 01:00 12/09/24 02:55 Temperature Pulse Rate Pulse Rate [Pulse Oximeter] Pulse Rate [Right Radial] Respiratory Rate Blood Pressure Blood Pressure [Le ft Arm] 111/65 110/84 Blood Pressure [Le ft Upper Arm] Pulse Oximetry 89 Oxygen Delivery Me thod Oxygen Flow Rate Fraction of Inspir ed Oxygen 12/09/24 02:55 12/09/24 07:15 12/09/24 07:51 Temperature 98.4 F 97.8 F Pulse Rate Pulse Rate [Pulse Oximeter] 121 H 101 H 113 H Pulse Rate [Right Radial] Respiratory Rate 20 20 Blood Pressure Blood Pressure [Le ft Arm] 108/87 136/90 H Blood Pressure [Le ft Upper Arm] Pulse Oximetry 89 91 Oxygen Delivery Me thod CPAP CPAP Oxygen Flow Rate 2 Fraction of Inspir ed Oxygen 12/09/24 07:52 12/09/24 08:00 12/09/24 08:00 Temperature Pulse Rate 103 H Pulse Rate [Pulse Oximeter] 113 H Pulse Rate [Right Radial] Respiratory Rate 20 Blood Pressure Blood Pressure [Le ft Arm] Blood Pressure [Le ft Upper Arm] Pulse Oximetry 91 Oxygen Delivery Me thod Oxygen Flow Rate Fraction of Inspir ed Oxygen 12/09/24 08:26 12/09/24 11:00 12/09/24 11:00 Temperature 97.8 F Pulse Rate 129 H Pulse Rate [Pulse Oximeter] 100 Pulse Rate [Right Radial] Respiratory Rate 20 Blood Pressure Blood Pressure [Le ft Arm] 102/73 Blood Pressure [Le ft Upper Arm] Pulse Oximetry 88 88 Oxygen Delivery Me thod CPAP Oxygen Flow Rate 2 Fraction of Inspir ed Oxygen 12/09/24 11:15 12/09/24 11:30 12/09/24 11:45 Temperature Pulse Rate Pulse Rate [Pulse Oximeter] 92 106 H 101 H Pulse Rate [Right Radial] Respiratory Rate 20 Blood Pressure Blood Pressure [Le ft Arm] 121/106 H 120/89 132/82 Blood Pressure [Le ft Upper Arm] Pulse Oximetry 89 91 92 Oxygen Delivery Me thod CPAP CPAP CPAP Oxygen Flow Rate 2 2 2 Fraction of Inspir ed Oxygen 12/09/24 12:00 12/09/24 12:15 12/09/24 13:00 Temperature Pulse Rate Pulse Rate [Pulse Oximeter] 96 106 H 79 Pulse Rate [Right Radial] Respiratory Rate Blood Pressure Blood Pressure [Le ft Arm] 136/84 106/55 L 138/90 H Blood Pressure [Le ft Upper Arm] Pulse Oximetry 89 91 89 Oxygen Delivery Me thod CPAP CPAP CPAP Oxygen Flow Rate 2 2 Fraction of Inspir ed Oxygen 2 12/09/24 13:15 Temperature Pulse Rate Pulse Rate [Pulse Oximeter] 85 Pulse Rate [Right Radial] Respiratory Rate Blood Pressure Blood Pressure [Le ft Arm] 140/89 H Blood Pressure [Le ft Upper Arm] Pulse Oximetry 87 L Oxygen Delivery Me thod CPAP Oxygen Flow Rate Fraction of Inspir ed Oxygen 2 Labs Labs: Laboratory Results - last 24 hr 12/08/24 12/08/24 12/08/24 15:30 18:43 19:16 WBC 10.63 RBC 5.79 H Hgb 18.0 H Hct 55.8 H MCV 96 MCH 31 MCHC 32 RDW Coeff of Aby 15.1 Plt Count 160 Neut % (Auto) 75.4 H Lymph % (Auto) 15.2 L [place] % (Auto) 7.1 Eos % (Auto) 0.4 Baso % (Auto) 0.1 Neut # (Auto) 8.00 H Lymph # (Auto) 1.60 [place] # (Auto) 0.80 Eos # (Auto) 0.04 Baso # (Auto) 0.01 Abs Immat Gran (auto) 0.19 Imm/Tot Granulo (auto) 1.8 INR 1.93 H VBG pH 7.399 7.354 VBG pCO2 52 H 67 H* VBG pO2 67.7 H < 30.1 VBG HCO3 32 H 37 H Sodium 141 Potassium 4.0 Chloride 101 Carbon Dioxide 30 Anion Gap 10 BUN 54 H Creatinine 1.2 Estimated Creat Clear Estimated GFR 48 Glucose 167 H Hemoglobin A1c Lactate 2.3 H 1.3 Calcium 8.4 Phosphorus Magnesium 1.4 L Total Bilirubin 0.9 AST 35 ALT 31 Alkaline Phosphatase 77 Troponin I < 0.01 < 0.01 C-Reactive Protein < 0.5 L NT-Pro-B Natriuret Pep 3240 H Total Protein 7.1 Albumin 4.0 Procalcitonin 0.08 SARS-CoV-2 (PCR) Influenza Type A (PCR) Influenza Type B (PCR) RSV (PCR) Lab Acknowledgement Test Added 12/08/24 12/08/24 12/09/24 21:50 22:16 06:09 WBC 7.31 RBC 5.31 H Hgb 16.6 H Hct 51.4 H MCV 97 MCH 31 MCHC 32 RDW Coeff of [place] Plt Count 203 Neut % (Auto) Lymph % (Auto) [place] % (Auto) Eos % (Auto) Baso % (Auto) Neut # (Auto) Lymph # (Auto) [place] # (Auto) Eos # (Auto) Baso # (Auto) Abs Immat Gran (auto) Imm/Tot Granulo (auto) INR 1.94 H VBG pH 7.394 7.399 VBG pCO2 59 H 53 H VBG pO2 39.8 75.5 H VBG HCO3 36 H 33 H Sodium 139 Potassium 4.6 Chloride 100 Carbon Dioxide 31 Anion Gap 8 BUN 56 H Creatinine 1.1 Estimated Creat Clear 42.00 Estimated GFR 53 Glucose 286 H Hemoglobin A1c 9.1 H Lactate Calcium 8.2 L Phosphorus 4.9 H Magnesium 1.6 Total Bilirubin AST ALT Alkaline Phosphatase Troponin I < 0.01 C-Reactive Protein NT-Pro-B Natriuret Pep Total Protein Albumin Procalcitonin SARS-CoV-2 (PCR) Negative SARS-CoV-2 Influenza Type A (PCR) Negative PCR FLU A Influenza Type B (PCR) Negative PCR FLU B RSV (PCR) Negative PCR RSV Lab Acknowledgement
[2024-12-09] MEDS: IPRAT-ALBUT 0.5-2.5 MG/3 ML NEB 1 NEB IH ×3 (13:42→21:05)
[2024-12-09] MEDS: DIGOXIN 250 MCG/ML inj IV (16:20)
[2024-12-09] MEDS: FUROSEMIDE 10 MG/ML inj 80 MG IVP (16:25)
[2024-12-09] MEDS: WARFARIN 2.5 MG TABLET PO (16:26)
--- NOTE | 2024-12-09 16:40 | RESP.RT ---
Patient has been resting on her home CPAP. She has needed intermittent supplemental O2 to keep SATs 88-92%. She is a CO2 retainer, thus we will wean supplemental O2 if SATs are above 92%.
[2024-12-09] MEDS: NICOTINE 21 MG PATCH 1 PATCH TRANSDERMA (20:19)
[2024-12-10] VITALS (20 sets, daily range): BP systolic 100–152; BP diastolic 66–100; PULSE 76–97; RESP 18–24; TEMP 36–36.8; O2SAT 89–97
[2024-12-10] MEDS: DIGOXIN 250 MCG/ML inj IV (00:16)
[2024-12-10] MEDS: ACETAMINOPHEN 500 MG TABLET 1000 MG PO ×2 (01:23→16:22)
[2024-12-10] MEDS: dilTIAZem HCL 125 MG in 0.9 % SODIUM CHLORIDE 100 ml 100 ML IVPB (04:00)
[2024-12-10] MEDS: 0.9 % SODIUM CHLORIDE 250 ml IV ×2 (04:02→21:34)
[2024-12-10 07:09] LABS: HCO3 VBG 35 mmol/L (21-28); PCO2 VBG 49 mmHG (40-50); PO2 VBG 41.9 mmHG (25-47); pH VBG 7.466 (7.32-7.43)
[2024-12-10 07:22] LABS: Basophils Absolute Auto 0.01 K/uL (0.00-0.30); Basophils Percent Auto 0.1 % (0.0-3.0); Hematocrit 54.6 % (33.0-51.0); Hemoglobin* 17.8 gm/dL (12.0-16.0); Immature Granulocytes Abs Auto 0.04 K/uL (0.00-0.30); Immature Granulocytes Pct Auto 0.4 %; Lymphocytes Percent Auto 7.3 % (20-44); Mean Corpuscular HGB Conc 33 gm/dL (32-36); Mean Corpuscular Hemoglobin 31 pg (26-34); Mean Corpuscular Volume 96 fL (80-100); Monocytes Percent Auto 5.9 % (0.0-11.0); Neutrophils Percent Auto 86.3 % (42.0-72.0); Platelet Count* 200 K/uL (140-440); RDW Coefficient of Variation % 14.5 % (11.5-15.5); Red Blood Count 5.71 m/uL (4.00-5.20); White Blood Count* 10.66 K/uL (4.50-11.00)
[2024-12-10 07:27] LABS: Slide Review Reflex No
[2024-12-10 07:30] LABS: Albumin* 3.8 g/dL (3.3-5.0); Chloride* 98 mmol/L (96-114); Sodium* 139 mmol/L (135-149)
[2024-12-10 07:32] LABS: Iron* 130 ug/dL (37-170)
[2024-12-10 07:33] LABS: Anion Gap 8 mEq/L (7-15); Blood Urea Nitrogen* 60 mg/dL (7-30); Carbon Dioxide* 33 mmol/L (20-32); Creatinine* 1.2 mg/dL (0.5-1.5); Estimated Glomerular Filt Rate 48 ml/min; Phosphorus* 3.4 mg/dL (2.5-4.5)
[2024-12-10 07:34] LABS: Calcium* 8.6 mg/dL (8.4-10.6); Glucose* 174 mg/dL (60-115); Magnesium* 1.5 mg/dL (1.5-2.6)
--- NOTE | 2024-12-10 07:36 | PC.NURSE ---
Pt pleasant and cooperative. purwick working well. Had a couple of smears of stool overnight. Turned and repo as much as pt would allow. VSS. Dilt gtt cont at 5mg an hour through out the night per MD. she tolerated it well.
[2024-12-10 07:51] LABS: Total Iron Binding Capacity 266 ug/dL (265-497)
[2024-12-10 08:15] LABS: Percent Iron Saturation 49 % (20-50)
[2024-12-10 08:17] LABS: Prothrombin Time 26.4 Seconds
[2024-12-10] MEDS: METOPROLOL SUCCINATE (XL) 100 MG TAB 200 MG PO (09:54)
[2024-12-10] MEDS: EMPAGLIFLOZIN 25 MG TABLET PO (09:55)
[2024-12-10] MEDS: POTASSIUM CHLORIDE 10 MEQ CAPSULE ER 40 MEQ PO ×2 (09:55→21:32)
[2024-12-10] MEDS: IPRAT-ALBUT 0.5-2.5 MG/3 ML NEB 1 NEB IH ×3 (09:55→21:32)
[2024-12-10] MEDS: dilTIAZem 240 MG CAP (CD) PO (09:55)
[2024-12-10] MEDS: DOXYCYCLINE HYCLATE 100 MG PO ×2 (09:56→21:32)
[2024-12-10] MEDS: INSULIN ASPART 100 UNIT/ML SUBCUT ×3 (09:56→18:10)
[2024-12-10] MEDS: predniSONE 20 MG TABLET 40 MG PO (09:56)
[2024-12-10] MEDS: SODIUM CHLORIDE 0.9 % (FLUSH) 10 ML SYRINGE 5 ML IVF ×2 (09:57→21:33)
[2024-12-10] MEDS: FUROSEMIDE 10 MG/ML inj 80 MG IVP ×2 (09:57→16:21)
[2024-12-10] MEDS: DIGOXIN 250 MCG TABLET PO (10:06)
--- NOTE | 2024-12-10 10:49 | PM.IMPN1 ---
Assessment and Plan Assessment and plan (1) Atrial fibrillation with rapid ventricular response: Problem comment: -telemetry, serial EKGs, serial troponin I's -adding oral SA cardizem was ineffective overnight; moved to CCU for dilt drip and IV digoxin. Increasing IV diuresis. -pharmacy to support with anticoagulation efforts with warfarin with INR goal of 2-3 12/10 - HR managed. off dilt drip. now on oral dig and continued metoprolol and dilt. Status: Acute (2) Acute on chronic heart failure with preserved ejection fraction (HFpEF): Problem comment: -currently AFib with RVR, acute on chronic respiratory failure -echocardiogram 12/09/2024: Signs of fluid overload. Normal LV and RV function. Normal EF. Mod TR related to pulmonary hypertension. RV pressure is 35 + RAP. Severe by atrial enlargement. -IV Lasix 40 mg b.i.d. was ordered on admission, increasing 80mg BID IV. Home dose is Bumex 2 mg b.i.d. 12/10 - stable. continue increased diuresis. Status: Acute (3) Acute on chronic respiratory failure with hypoxia and hypercapnia: Problem comment: -Continue with efforts to manage by addressing AFib RVR, COPD exacerbation, heart failure exacerbation -CO2 elevated but manageable -continue prednisone and doxy for previously dx and managed COPD exacerbation. Status: Acute (4) Pulmonary hypertension: Problem comment: -Echo from 12/09/2024: Normal LV and RV function. Normal EF. Mod TR related to pulmonary hypertension. RV pressure os 35 + RAP. Severe by atrial enlargement. -possibly multifactorial from advanced lung disease as well as valvular cardiomyopathy from underlying valvular disease with moderate to severe tricuspid valve regurgitation, moderate aortic stenosis, moderate mitral regurgitation -due consideration needs to be given to the possibility of referring patient to crackling press operator for assessment of patient responsiveness to medical management verses lung transplant verses end of life care Status: Acute (5) Obstructive sleep apnea on CPAP: Problem comment: On home CPAP. She does have some hypoxia at night. Unfortunately she retained CO2 if supplemental oxygen is given. Status: Acute (6) Insulin-requiring or dependent type II diabetes mellitus: Problem comment: monitor with her home meds, SSI. A1C >9 Status: Chronic (7) Chronic obstructive pulmonary disease: Status: Chronic (8) Chronic kidney disease, stage III (moderate): Problem comment: Status: Acute (9) Skin tear: Problem comment: Skin tear and right novak. Does not appear to be currently infected. Monitor and provide wound care Status: Acute (10) Physical debility: Problem comment: - multifactorial including morbid obesity, deconditioning, heart failure, lymphedema, COPD, pulmonary hypertension, valvular cardiomyopathy - PT and OT assessment. Status: Acute (11) Morbid obesity with BMI of 50.0-59.9, adult: Problem comment: BMI 53 Status: Acute (12) Chronic anticoagulation: Problem comment: - currently on warfarin for afib - 08/29 INR therapeutic Status: Acute Subjective Date Seen: 12/10/24 Interval history: Daily Progress Note - Hospital Medicine Day #: 3 CC: Dyspnea, hypoxia, weakness 24 HOUR UPDATE: heart-rate much improved. now in the 80's. discontinued cardizem gtt. rec'd bolus digoxin and now daily po dig with baseline metoprolol and dilt. IV diuresis ongoing at 80mg IVP bid. Doxy and Prednisone ongoing from discharge mid last week. Notable Labs, Micro, Rads, Interventions: CBC is unremarkable. INR is 2.3 VBG is stable. CO2 is 49. Chemistries are quite reassuring. She has known chronic kidney disease and this is at her baseline. BUN 56, creatinine 1.2, GFR 48 A1c 9.1 Mildly hypocalcemic with known secondary hyperparathyroidism. Her BNP from current and most previous admissions are the same. Her chest x-ray on 12/08 shows evidence of mild CHF and pulmonary hypertension Echo: As reported she has a normal EF. Globally her LV and RV function are intact. She has moderate TR, a dilated inferior vena cava, a dilated ascending aorta at 4.2 cm. No significant or AR. Severe biatrial enlargement. Objective: chronically ill appearing; mild resp distress. Vitals: see above Lungs: Clear but decreased at the bases; shallow inspiration. Cardiac: irregular. no harsh murmurs. Edema: chronic lymphedema noted. Disposition/Potential discharge - will likely need short term rehab. Today I spent 50minutes seeing the patient, reviewing Expanse and EPIC notes/diagnostics, discussing the care plan with our care time that includes social work, PT/OT, pharmacy, RT, shelter and documenting my impressions and plan in the medical record. Prolonged Physician Services [id number] ([facility]) in conjunction with: [id number] (subsequent visit; 50 mins + 15 mins prolonged services = 65 mins total) Exam Const: Vital Signs, click to edit/add: Vital Signs - 24 hr 12/09/24 11:00 12/09/24 11:00 12/09/24 11:15 Temperature 97.8 F Pulse Rate Pulse Rate [Pulse Oximeter] 100 92 Pulse Rate [Right Radial] Respiratory Rate 20 20 Blood Pressure [Le ft Arm] 102/73 121/106 H Pulse Oximetry 88 88 89 Oxygen Delivery Me thod CPAP CPAP Oxygen Flow Rate 2 2 Fraction of Inspir ed Oxygen 12/09/24 11:30 12/09/24 11:45 12/09/24 12:00 Temperature Pulse Rate Pulse Rate [Pulse Oximeter] 106 H 101 H 96 Pulse Rate [Right Radial] Respiratory Rate Blood Pressure [Le ft Arm] 120/89 132/82 136/84 Pulse Oximetry 91 92 89 Oxygen Delivery Me thod CPAP CPAP CPAP Oxygen Flow Rate 2 2 2 Fraction of Inspir ed Oxygen 12/09/24 12:15 12/09/24 12:30 12/09/24 13:00 Temperature Pulse Rate 102 H Pulse Rate [Pulse Oximeter] 106 H 79 Pulse Rate [Right Radial] Respiratory Rate Blood Pressure [Le ft Arm] 106/55 L 138/90 H Pulse Oximetry 91 89 Oxygen Delivery Me thod CPAP CPAP Oxygen Flow Rate 2 Fraction of Inspir ed Oxygen 2 12/09/24 13:15 12/09/24 13:30 12/09/24 13:45 Temperature 99.1 F Pulse Rate Pulse Rate [Pulse Oximeter] 85 87 89 Pulse Rate [Right Radial] Respiratory Rate 25 H 22 Blood Pressure [Le ft Arm] 140/89 H 145/83 H 101/79 Pulse Oximetry 87 L 88 90 Oxygen Delivery Me thod CPAP Oxygen Flow Rate 2 Fraction of Inspir ed Oxygen 12/09/24 15:00 12/09/24 15:00 12/09/24 15:00 Temperature Pulse Rate 106 H Pulse Rate [Pulse Oximeter] 85 Pulse Rate [Right Radial] Respiratory Rate 20 Blood Pressure [Le ft Arm] 123/78 Pulse Oximetry 90 91 Oxygen Delivery Me thod Oxygen Flow Rate Fraction of Inspir ed Oxygen 12/09/24 16:00 12/09/24 16:20 12/09/24 17:00 Temperature Pulse Rate 86 Pulse Rate [Pulse Oximeter] 83 86 Pulse Rate [Right Radial] Respiratory Rate 22 19 Blood Pressure [Le ft Arm] 119/77 133/83 Pulse Oximetry 93 92 Oxygen Delivery Me thod CPAP Oxygen Flow Rate 2 Fraction of Inspir ed Oxygen 12/09/24 17:30 12/09/24 18:00 12/09/24 18:30 Temperature Pulse Rate Pulse Rate [Pulse Oximeter] 87 86 90 Pulse Rate [Right Radial] Respiratory Rate 16 18 Blood Pressure [Le ft Arm] 102/72 114/64 136/73 Pulse Oximetry 90 Oxygen Delivery Me thod CPAP CPAP CPAP Oxygen Flow Rate 2 2 2 Fraction of Inspir ed Oxygen 12/09/24 19:00 12/09/24 19:00 12/09/24 22:30 Temperature 98 F Pulse Rate Pulse Rate [Pulse Oximeter] 92 90 Pulse Rate [Right Radial] Respiratory Rate 16 20 Blood Pressure [Le ft Arm] 118/77 135/90 H Pulse Oximetry 90 93 90 Oxygen Delivery Me thod CPAP Room Air Oxygen Flow Rate 2 Fraction of Inspir ed Oxygen 12/09/24 23:00 12/09/24 23:00 12/09/24 23:30 Temperature Pulse Rate Pulse Rate [Pulse Oximeter] 88 90 90 Pulse Rate [Right Radial] 86 Respiratory Rate 20 24 Blood Pressure [Le ft Arm] 132/82 127/95 H Pulse Oximetry 91 91 Oxygen Delivery Me thod CPAP CPAP Oxygen Flow Rate 2 2 Fraction of Inspir ed Oxygen 12/10/24 00:00 12/10/24 00:30 12/10/24 00:50 Temperature Pulse Rate Pulse Rate [Pulse Oximeter] 86 77 Pulse Rate [Right Radial] Respiratory Rate 22 24 Blood Pressure [Le ft Arm] 143/85 H 149/88 H Pulse Oximetry 95 95 Oxygen Delivery Me thod CPAP CPAP Oxygen Flow Rate 2 Fraction of Inspir ed Oxygen 12/10/24 01:00 12/10/24 02:00 12/10/24 04:00 Temperature 97.6 F Pulse Rate Pulse Rate [Pulse Oximeter] 87 76 84 Pulse Rate [Right Radial] Respiratory Rate 24 22 22 Blood Pressure [Le ft Arm] 152/100 H 124/81 106/81 Pulse Oximetry 90 95 97 Oxygen Delivery Me thod CPAP CPAP CPAP Oxygen Flow Rate 2 2 2 Fraction of Inspir ed Oxygen 12/10/24 04:00 12/10/24 05:00 12/10/24 06:00 Temperature 97.8 F 98 F Pulse Rate Pulse Rate [Pulse Oximeter] 85 81 Pulse Rate [Right Radial] Respiratory Rate 22 22 Blood Pressure [Le ft Arm] 121/66 128/84 Pulse Oximetry 97 91 95 Oxygen Delivery Me thod CPAP CPAP Oxygen Flow Rate 2 2 Fraction of Inspir ed Oxygen 12/10/24 07:00 12/10/24 07:00 12/10/24 07:00 Temperature Pulse Rate 85 Pulse Rate [Pulse Oximeter] 78 97 Pulse Rate [Right Radial] Respiratory Rate 18 Blood Pressure [Le ft Arm] 131/88 Pulse Oximetry Oxygen Delivery Me thod Oxygen Flow Rate Fraction of Inspir ed Oxygen 12/10/24 08:00 12/10/24 08:58 12/10/24 10:06 Temperature 98.3 F Pulse Rate 93 Pulse Rate [Pulse Oximeter] 97 Pulse Rate [Right Radial] Respiratory Rate 18 Blood Pressure [Le ft Arm] 124/82 Pulse Oximetry 93 93 Oxygen Delivery Me thod CPAP Oxygen Flow Rate 2 Fraction of Inspir ed Oxygen Labs Labs: Laboratory Results - last 24 hr 12/10/24 07:00 WBC 10.66 RBC 5.71 H Hgb 17.8 H Hct 54.6 H MCV 96 MCH 31 MCHC 33 RDW Coeff of [place] 14.5 Plt Count 200 Neut % (Auto) 86.3 H Lymph % (Auto) 7.3 L [place] % (Auto) 5.9 Eos % (Auto) 0.0 Baso % (Auto) 0.1 Neut # (Auto) 9.20 H Lymph # (Auto) 0.80 L [place] # (Auto) 0.60 Eos # (Auto) 0.00 Baso # (Auto) 0.01 Abs Immat Gran (auto) 0.04 Imm/Tot Granulo (auto) 0.4 INR 2.30 H VBG pH 7.466 H VBG pCO2 49 VBG pO2 41.9 VBG HCO3 35 H Sodium 139 Potassium 4.0 Chloride 98 Carbon Dioxide 33 H Anion Gap 8 BUN 60 H Creatinine 1.2 Estimated Creat Clear 38.50 Estimated GFR 48 Glucose 174 H Calcium 8.6 Phosphorus 3.4 Magnesium 1.5 Iron 130 TIBC 266 % Saturation 49 Albumin 3.8 TSH 3.430
[2024-12-10] MEDS: WARFARIN 2.5 MG TABLET 3.75 MG PO (16:23)
--- NOTE | 2024-12-10 19:33 | PC.NURSE ---
Nursing Care Hours: [id number] Pt this shift calm, alert and oriented. Needed encouragement to stand at edge of bed with PT. Skin check done. Only scab to RLE. Heels lifted off bed. Pure wick changed and repositioned d/t leaking. Silver wicking towels in place under abdomen skin folds. Cherry care done. Pt declined oral cares. Pt refused to use BSC or get up in chair. Pt expresses wanting to go home tomorrow Thursday and medical technical writer discussed with patient needing to be able to walk and perform ADLs without issue. Pt consistently using CPAP throughout the day. Removing it for meals but keeping it close to use intermittently when feeling SOB. Insulin given per sliding scale. Dilt drip stopped this morning, HR in A.fib NVR. Manual BP used d/t automatic causing too much pain.
[2024-12-10] MEDS: INSULIN GLARGINE,HUM.REC.ANLOG 100 UNIT/ML INSULN.PEN 25 UNIT SUBCUT (21:32)
[2024-12-10] MEDS: NICOTINE 21 MG PATCH 1 PATCH TRANSDERMA (21:53)
[2024-12-11] VITALS (13 sets, daily range): BP systolic 103–125; BP diastolic 69–95; PULSE 74–112; RESP 18–30; TEMP 35.8–36.4; O2SAT 87–94
--- NOTE | 2024-12-11 06:23 | PC.NURSE ---
Shift Note 19-: Pt needs encouragement for activity. Reluctantly stood from bed for daily weight. VS WNL. Wearing CPAP throughout this shift with 2L/O2 bled in. SpO2 94%. Pt denies pain. Incontinent of urine, external catheter in place. Cherry cares provided, skin intact aside from small avulsion in RLQ fold. Area cleansed and VTC TECHNICIAN. Barrier cream applied to bottom, coccyx region intact.
[2024-12-11 07:11] LABS: INR 2.59 (0.91-1.10); Prothrombin Time 28.9 Seconds
--- NOTE | 2024-12-11 08:00 | CRLHL7_ITS ---
For Patients: As a result of the Century Cures Act, medical imaging exams and procedure reports are released immediately into your electronic medical record. You may view this report before your referring provider. If you have questions, please contact your health care provider. INDICATION: CHF, COPD TECHNIQUE: Chest 2 views. COMPARISON: Chest radiograph on December 08, 2024 and August 24, 2024. FINDINGS: Cardiovascular and mediastinum: Cardiomegaly, stable. Stable mediastinal contours with enlarged central pulmonary arteries. Left-sided pacer electrode terminates in expected position. Aortic arch is calcified, indicating atherosclerosis. Lungs and pleural spaces: Lung volumes remain low. Compared to chest radiograph dated December 08, 2024, diffuse lung disease is similar to slightly increased. Lung disease has improved compared to remote chest radiograph dated August 24, 2024. Query a trace right pleural effusion, as before. No definite pleural effusion no pneumothorax bilaterally. Bones and soft tissues: No acute fracture. Diffuse osseous demineralization. Multilevel degenerative changes of the spine. IMPRESSION: 1. Compared to chest radiograph dated December 08, 2024, diffuse lung disease is similar to slightly increased, compatible with pulmonary edema with superimposed atelectasis, aspiration and/or pneumonia. 2. Stable cardiomegaly. 3. Enlarged central pulmonary arteries, likely sequela of pulmonary hypertension. Dictated by Eliceo Kaur MD @ 12/11/2024 10:11:00 AM (Electronically Signed)
[2024-12-11] MEDS: predniSONE 20 MG TABLET 40 MG PO (09:31)
[2024-12-11] MEDS: POTASSIUM CHLORIDE 10 MEQ CAPSULE ER 40 MEQ PO ×2 (09:31→22:14)
[2024-12-11] MEDS: EMPAGLIFLOZIN 25 MG TABLET PO (09:32)
[2024-12-11] MEDS: dilTIAZem 240 MG CAP (CD) PO (09:32)
[2024-12-11] MEDS: METOPROLOL SUCCINATE (XL) 100 MG TAB 200 MG PO (09:32)
[2024-12-11] MEDS: FUROSEMIDE 10 MG/ML inj 80 MG IVP ×2 (09:32→15:34)
[2024-12-11] MEDS: DOXYCYCLINE HYCLATE 100 MG PO ×2 (09:32→22:14)
[2024-12-11] MEDS: DIGOXIN 250 MCG TABLET PO (10:55)
[2024-12-11] MEDS: IPRAT-ALBUT 0.5-2.5 MG/3 ML NEB 1 NEB IH ×3 (11:30→22:13)
--- NOTE | 2024-12-11 14:53 | P.IMPN_ITS ---
Assessment and Plan Assessment and plan (1) Atrial fibrillation with rapid ventricular response: Problem comment: -telemetry, serial EKGs, serial troponin I's -adding oral SA cardizem was ineffective overnight; moved to CCU for dilt drip and IV digoxin. Increasing IV diuresis. -pharmacy to support with anticoagulation efforts with warfarin with INR goal of 2-3 12/10 - HR managed. off dilt drip. now on oral dig and continued metoprolol and dilt. Status: Acute (2) Acute on chronic heart failure with preserved ejection fraction (HFpEF): Problem comment: -AFib with RVR, acute on chronic respiratory failure -echocardiogram 12/09/2024: Signs of fluid overload. Normal LV and RV function. Normal EF. Mod TR related to pulmonary hypertension. RV pressure is 35 + RAP. Severe by atrial enlargement. -IV Lasix 40 mg b.i.d. was ordered on admission, increasing 80mg BID IV on 12/10. Home dose is Bumex 2 mg b.i.d. 12/10 - stable. continue increased diuresis. 12/11 - weak - not making much improvement. Chest xray - still needs diuresis and has atelectasis/aspiration, hemodynamically stable. Status: Acute (3) Acute on chronic respiratory failure with hypoxia and hypercapnia: Problem comment: -Continue with efforts to manage by addressing AFib RVR, COPD exacerbation, heart failure exacerbation -CO2 elevated but manageable -continue prednisone and doxy for previously dx and managed COPD exacerbation. Status: Acute (4) Pulmonary hypertension: Problem comment: -Echo from 12/09/2024: Normal LV and RV function. Normal EF. Mod TR related to pulmonary hypertension. RV pressure os 35 + RAP. Severe by atrial enlargement. -possibly multifactorial from advanced lung disease as well as valvular cardiomyopathy from underlying valvular disease with moderate to severe tricuspid valve regurgitation, moderate aortic stenosis, moderate mitral regurgitation -due consideration needs to be given to the possibility of referring patient to accounting consultant for assessment of patient responsiveness to medical management verses lung transplant verses end of life care Status: Acute (5) Obstructive sleep apnea on CPAP: Problem comment: On home CPAP. She does have some hypoxia at night. Unfortunately she retained CO2 if supplemental oxygen is given. Status: Acute (6) Insulin-requiring or dependent type II diabetes mellitus: Problem comment: monitor with her home meds, SSI. A1C >9 Status: Chronic (7) Chronic obstructive pulmonary disease: Status: Chronic (8) Chronic kidney disease, stage III (moderate): Problem comment: Status: Acute (9) Skin tear: Problem comment: Skin tear and right novak. Does not appear to be currently infected. Monitor and provide wound care Status: Acute (10) Physical debility: Problem comment: - multifactorial including morbid obesity, deconditioning, heart failure, lymphedema, COPD, pulmonary hypertension, valvular cardiomyopathy - PT and OT assessment. Status: Acute (11) Morbid obesity with BMI of 50.0-59.9, adult: Problem comment: BMI 53 Status: Acute (12) Chronic anticoagulation: Problem comment: - currently on warfarin for afib - 3/ INR therapeutic Status: Acute Subjective Date Seen: 12/11/24 Interval history: Daily Progress Note - Hospital Medicine Day #: 4 CC: Dyspnea, hypoxia, weakness 24 HOUR UPDATE: heart-rate continues is well managed on oral digoxin, oral metoprolol and cardizem continues to be very weak; not moving much. IV diuresis ongoing at 80mg IVP bid. Doxy and Prednisone ongoing from discharge mid last week. Notable Labs, Micro, Rads, Interventions: CBC is unremarkable. INR is 2.59 VBG is stable. CO2 is 49. Chemistries are quite reassuring. She has known chronic kidney disease and this is at her baseline. BUN 56, creatinine 1.2, GFR 48 A1c 9.1 Mildly hypocalcemic with known secondary hyperparathyroidism. Her BNP from current and most previous admissions are the same. CXR 2V 12/11 1. Compared to chest radiograph dated December 08, 2024, diffuse lung disease is similar to slightly increased, compatible with pulmonary edema with superimposed atelectasis, aspiration and/or pneumonia. 2. Stable cardiomegaly. 3. Enlarged central pulmonary arteries, likely sequela of pulmonary hypertension. Echo: As reported she has a normal EF. Globally her LV and RV function are intact. She has moderate TR, a dilated inferior vena cava, a dilated ascending aorta at 4.2 cm. No significant or AR. Severe biatrial enlargement. Objective: chronically ill appearing; mild resp distress. Vitals: see above Lungs: Clear but decreased at the bases; shallow inspiration. Cardiac: irregular. no harsh murmurs. Edema: chronic lymphedema noted. Disposition/Potential discharge - will likely need short term rehab. Today I spent 50minutes seeing the patient, reviewing Expanse and EPIC notes/diagnostics, discussing the care plan with our care time that includes social work, PT/OT, pharmacy, RT, fpc and documenting my impressions and plan in the medical record. Prolonged Physician Services [id number] ([facility]) in conjunction with: [id number] (subsequent visit; 50 mins + 15 mins prolonged services = 65 mins total) Exam Const: Vital Signs, click to edit/add: Vital Signs - 24 hr 12/10/24 15:00 12/10/24 15:00 12/10/24 15:36 Temperature 96.9 F L Pulse Rate 89 Pulse Rate [Pulse Oximeter] 90 90 Respiratory Rate 18 18 Blood Pressure [Le ft Arm] 100/80 Blood Pressure [R forearm] Pulse Oximetry 92 Oxygen Delivery Me thod Nasal Cannula CPAP Oxygen Flow Rate 2 12/10/24 16:00 12/10/24 19:00 12/10/24 20:00 Temperature 96.9 F L Pulse Rate Pulse Rate [Pulse Oximeter] 87 Respiratory Rate 20 Blood Pressure [Le ft Arm] 136/91 H Blood Pressure [R forearm] Pulse Oximetry 89 92 92 Oxygen Delivery Me thod Nasal Cannula CPAP Oxygen Flow Rate 2 12/10/24 23:00 12/10/24 23:00 12/10/24 23:00 Temperature 96.8 F L Pulse Rate 92 Pulse Rate [Pulse Oximeter] 87 93 Respiratory Rate 20 18 Blood Pressure [Le ft Arm] 116/75 Blood Pressure [R forearm] Pulse Oximetry 94 Oxygen Delivery Me thod CPAP Oxygen Flow Rate 2 12/11/24 00:00 12/11/24 03:00 12/11/24 04:00 Temperature 96.4 F L Pulse Rate Pulse Rate [Pulse Oximeter] 92 Respiratory Rate 18 Blood Pressure [Le ft Arm] 117/87 Blood Pressure [R forearm] Pulse Oximetry 94 92 93 Oxygen Delivery Me thod CPAP Oxygen Flow Rate 2 12/11/24 07:00 12/11/24 07:00 12/11/24 07:00 Temperature 97.6 F Pulse Rate 94 Pulse Rate [Pulse Oximeter] 95 100 Respiratory Rate 18 20 Blood Pressure [Le ft Arm] Blood Pressure [R forearm] 105/74 Pulse Oximetry 89 Oxygen Delivery Me thod CPAP Oxygen Flow Rate 1 12/11/24 08:00 12/11/24 10:55 12/11/24 11:00 Temperature Pulse Rate 112 H Pulse Rate [Pulse Oximeter] 112 H Respiratory Rate 30 H Blood Pressure [Le ft Arm] Blood Pressure [R forearm] 125/95 H Pulse Oximetry 91 89 Oxygen Delivery Me thod CPAP Oxygen Flow Rate 1 Labs Labs: Laboratory Results - last 24 hr 12/11/24 06:09 INR 2.59 H
[2024-12-11 15:11] LABS: Chloride* 97 mmol/L (96-114); Potassium* 3.8 mmol/L (3.6-5.1); Sodium* 138 mmol/L (135-149)
[2024-12-11 15:14] LABS: Blood Urea Nitrogen* 61 mg/dL (7-30); Creatinine* 1.1 mg/dL (0.5-1.5); Estimated Glomerular Filt Rate 53 ml/min
[2024-12-11 15:15] LABS: Anion Gap 9 mEq/L (7-15); Calcium* 8.7 mg/dL (8.4-10.6); Carbon Dioxide* 32 mmol/L (20-32); Glucose* 135 mg/dL (60-115)
--- NOTE | 2024-12-11 15:18 | RESP.RT ---
Patient has been on her home CPAP for most of the day. Patient has minimal activity. Cardiac and COPD issues have resulted in her not being very active, and she is still a current smoker. Target SATs of 86-92%. Patient is able to use her home CPAP independently.
[2024-12-11] MEDS: ACETAMINOPHEN 500 MG TABLET 1000 MG PO (15:33)
[2024-12-11] MEDS: INSULIN ASPART 100 UNIT/ML SUBCUT ×2 (15:50→18:09)
[2024-12-11] MEDS: SODIUM CHLORIDE 0.9 % (FLUSH) 10 ML SYRINGE 5 ML IVF ×2 (16:00→22:17)
[2024-12-11] MEDS: WARFARIN 2.5 MG TABLET PO (18:08)
--- NOTE | 2024-12-11 19:28 | PC.NURSE ---
Nursing Care Hours: [id number] pt this shift calm and cooperative, alert and oriented. VSS on 1L NC or bleeding into CPAP. Used BSC this morning without BM results. Worked with PT/OT. Sat up in chair for dinner. Shower cap to head. Discussed smoking cessation. Insulin given per sliding scale.
[2024-12-11] MEDS: NICOTINE 21 MG PATCH 1 PATCH TRANSDERMA (22:13)
[2024-12-11] MEDS: INSULIN GLARGINE,HUM.REC.ANLOG 100 UNIT/ML INSULN.PEN 25 UNIT SUBCUT (22:15)
[2024-12-12] VITALS (12 sets, daily range): BP systolic 102–130; BP diastolic 64–89; PULSE 80–102; RESP 20–24; TEMP 35.8–36.5; O2SAT 90–94
--- NOTE | 2024-12-12 05:51 | PC.NURSE ---
19-: Shift unremarkable. Pt denies pain. VS WNL, LS with expiratory rhonchi on right side throughout. Pt wearing CPAP most of this shift with 1.5L/O2 bled in. Turns/repositions herself mostly independently. Occasionally needs assistance positioning pillows. Assist x2 to sit up/stand for daily weight on standing scale.
[2024-12-12 06:36] LABS: HCO3 VBG 35 mmol/L (21-28); PCO2 VBG 47 mmHG (40-50); PO2 VBG 63.8 mmHG (25-47); pH VBG 7.482 (7.32-7.43)
[2024-12-12 06:46] LABS: Hematocrit 55.9 % (33.0-51.0); Hemoglobin* 18.2 gm/dL (12.0-16.0); Mean Corpuscular HGB Conc 33 gm/dL (32-36); Mean Corpuscular Hemoglobin 31 pg (26-34); Mean Corpuscular Volume 95 fL (80-100); Platelet Count* 192 K/uL (140-440); Red Blood Count 5.89 m/uL (4.00-5.20); Slide Review Reflex No; White Blood Count* 11.74 K/uL (4.50-11.00)
[2024-12-12 06:58] LABS: Chloride* 98 mmol/L (96-114); INR 2.86 (0.91-1.10); Potassium* 3.9 mmol/L (3.6-5.1); Prothrombin Time 31.3 Seconds; Sodium* 138 mmol/L (135-149)
[2024-12-12 07:01] LABS: Anion Gap 7 mEq/L (7-15); Blood Urea Nitrogen* 62 mg/dL (7-30); Calcium* 8.6 mg/dL (8.4-10.6); Carbon Dioxide* 33 mmol/L (20-32); Creatinine* 1.1 mg/dL (0.5-1.5); Estimated Glomerular Filt Rate 53 ml/min; Glucose* 146 mg/dL (60-115)
[2024-12-12 07:13] LABS: C Reactive Protein* < 0.5 mg/dL (0.5-1.0)
[2024-12-12] MEDS: INSULIN ASPART 100 UNIT/ML SUBCUT ×3 (08:44→17:45)
[2024-12-12] MEDS: POTASSIUM CHLORIDE 10 MEQ CAPSULE ER 40 MEQ PO ×2 (08:45→20:02)
[2024-12-12] MEDS: dilTIAZem 240 MG CAP (CD) PO (08:45)
[2024-12-12] MEDS: METOPROLOL SUCCINATE (XL) 100 MG TAB 200 MG PO (08:45)
[2024-12-12] MEDS: DOXYCYCLINE HYCLATE 100 MG PO (08:46)
[2024-12-12] MEDS: EMPAGLIFLOZIN 25 MG TABLET PO (08:46)
[2024-12-12] MEDS: DIGOXIN 250 MCG TABLET PO (08:46)
[2024-12-12] MEDS: FUROSEMIDE 10 MG/ML inj 80 MG IVP ×2 (08:46→16:22)
[2024-12-12] MEDS: predniSONE 20 MG TABLET 40 MG PO (08:46)
[2024-12-12] MEDS: SODIUM CHLORIDE 0.9 % (FLUSH) 10 ML SYRINGE 5 ML IVF ×3 (08:47→20:08)
[2024-12-12] MEDS: IPRAT-ALBUT 0.5-2.5 MG/3 ML NEB 1 NEB IH ×4 (08:47→20:04)
--- NOTE | 2024-12-12 15:08 | PC.NURSE ---
end of shift. pt has no pain in bed but she is pain pain with moving. right knee is worse., she is wearing her CPAP almost the entire day. LS are diminished but clear. .cpap 1.5L/O2 bled in. Turns/repositions herself mostly independently. Occasionally needs assistance positioning pillows. she can stand with assist. she has a brief on. SL is patent. nicotine patch is present.
--- NOTE | 2024-12-12 15:15 | PM.IMPN1 ---
Assessment and Plan Assessment and plan (1) Paroxysmal atrial fibrillation: Problem comment: -previous RVR resolved -chronic longstanding. On warfarin. Diltiazem, Digoxin and metoprolol for rate control Status: Acute (2) Acute on chronic respiratory failure with hypoxia and hypercapnia: Problem comment: -Continue with efforts to manage by addressing AFib RVR, COPD exacerbation, heart failure exacerbation -CO2 elevated but manageable -continue prednisone and doxy for previously dx and managed COPD exacerbation. Status: Acute (3) Acute on chronic heart failure with preserved ejection fraction (HFpEF): Problem comment: -AFib with RVR, acute on chronic respiratory failure -echocardiogram 12/09/2024: Signs of fluid overload. Normal LV and RV function. Normal EF. Mod TR related to pulmonary hypertension. RV pressure is 35 + RAP. Severe by atrial enlargement. -IV Lasix 40 mg b.i.d. was ordered on admission, increasing 80mg BID IV on 12/10. Home dose is Bumex 2 mg b.i.d. 12/10 - stable. continue increased diuresis. 12/11 - weak - not making much improvement. Chest xray - still needs diuresis and has atelectasis/aspiration, hemodynamically stable. Status: Acute (4) Pulmonary hypertension: Problem comment: -Echo from 12/09/2024: Normal LV and RV function. Normal EF. Mod TR related to pulmonary hypertension. RV pressure os 35 + RAP. Severe by atrial enlargement. -possibly multifactorial from advanced lung disease as well as valvular cardiomyopathy from underlying valvular disease with moderate to severe tricuspid valve regurgitation, moderate aortic stenosis, moderate mitral regurgitation -due consideration needs to be given to the possibility of referring patient to pneudraulic systems mechanic for assessment of patient responsiveness to medical management verses lung transplant verses end of life care Status: Acute (5) Obstructive sleep apnea on CPAP: Problem comment: On home CPAP. She does have some hypoxia at night. Unfortunately she retained CO2 if supplemental oxygen is given. Status: Acute (6) Insulin-requiring or dependent type II diabetes mellitus: Problem comment: monitor with her home meds, SSI. A1C >9 Status: Chronic (7) Chronic obstructive pulmonary disease: Status: Chronic (8) Chronic kidney disease, stage III (moderate): Problem comment: Status: Acute (9) Physical debility: Problem comment: - multifactorial including morbid obesity, deconditioning, heart failure, lymphedema, COPD, pulmonary hypertension, valvular cardiomyopathy - PT and OT assessment. Status: Acute (10) Morbid obesity with BMI of 50.0-59.9, adult: Problem comment: BMI 53 Status: Acute (11) Chronic anticoagulation: Problem comment: - currently on warfarin for afib - 3/3 INR therapeutic Status: Acute Subjective Date Seen: 12/12/24 Interval history: Daily Progress Note - Hospital Medicine Day #: 5 CC: Dyspnea, hypoxia, weakness 24 HOUR UPDATE: heart-rate continues is well managed on oral digoxin, oral metoprolol and cardizem continues to be very weak; not moving much. IV diuresis ongoing at 80mg IVP bid. Doxy and Prednisone ongoing from discharge mid last week. Notable Labs, Micro, Rads, Interventions: CBC reveals known elevated hemoglobin (smoker) and slight bump in total wbc. INR is 2.59 VBG is stable. CO2 is 47. Chemistries are quite reassuring. She has known chronic kidney disease and this is at her baseline. BUN 56, creatinine 1.2, GFR 48 A1c 9.1 Mildly hypocalcemic with known secondary hyperparathyroidism. Her BNP from current and most previous admissions are the same. Echo: As reported she has a normal EF. Globally her LV and RV function are intact. She has moderate TR, a dilated inferior vena cava, a dilated ascending aorta at 4.2 cm. No significant or AR. Severe biatrial enlargement. Objective: chronically ill appearing; comfortable. Vitals: see above Lungs: Clear but decreased at the bases; shallow inspiration. Cardiac: irregular. no harsh murmurs. Edema: chronic lymphedema noted. Disposition/Potential discharge - ready for discharge to TCU Today I spent 50minutes seeing the patient, reviewing Expanse and EPIC notes/diagnostics, discussing the care plan with our care time that includes social work, PT/OT, pharmacy, RT, residential and documenting my impressions and plan in the medical record. Prolonged Physician Services [id number] ([facility]) in conjunction with: [id number] (subsequent visit; 50 mins + 15 mins prolonged services = 65 mins total) Exam Const: Vital Signs, click to edit/add: Vital Signs - 24 hr 12/11/24 16:00 12/11/24 19:00 12/11/24 20:00 Temperature 96.8 F L Pulse Rate Pulse Rate [Pulse Oximeter] 85 Respiratory Rate 24 Blood Pressure [Le ft Arm] Blood Pressure [R forearm] 119/84 Pulse Oximetry 90 91 88 Oxygen Delivery Me thod CPAP Oxygen Flow Rate 1.5 12/11/24 23:00 12/11/24 23:00 12/11/24 23:00 Temperature 96.8 F L Pulse Rate 81 Pulse Rate [Pulse Oximeter] 74 84 Respiratory Rate 22 20 Blood Pressure [Le ft Arm] 103/69 Blood Pressure [R forearm] Pulse Oximetry 92 Oxygen Delivery Me thod CPAP Oxygen Flow Rate 1.5 12/12/24 00:00 12/12/24 03:00 12/12/24 04:00 Temperature 97.1 F L Pulse Rate Pulse Rate [Pulse Oximeter] 81 Respiratory Rate 20 Blood Pressure [Le ft Arm] 130/89 Blood Pressure [R forearm] Pulse Oximetry 94 93 93 Oxygen Delivery Me thod CPAP Oxygen Flow Rate 1.5 12/12/24 07:13 12/12/24 07:30 12/12/24 07:30 Temperature 97.1 F L Pulse Rate 81 Pulse Rate [Pulse Oximeter] 89 Respiratory Rate 20 Blood Pressure [Le ft Arm] Blood Pressure [R forearm] 120/72 Pulse Oximetry 93 93 Oxygen Delivery Me thod CPAP Oxygen Flow Rate 1.5 12/12/24 07:30 12/12/24 08:46 12/12/24 11:20 Temperature Pulse Rate 102 H Pulse Rate [Pulse Oximeter] 89 Respiratory Rate 20 Blood Pressure [Le ft Arm] Blood Pressure [R forearm] Pulse Oximetry 92 Oxygen Delivery Me thod Oxygen Flow Rate 12/12/24 11:20 Temperature 96.5 F L Pulse Rate Pulse Rate [Pulse Oximeter] 89 Respiratory Rate 22 Blood Pressure [Le ft Arm] Blood Pressure [R forearm] 102/84 Pulse Oximetry 93 Oxygen Delivery Me thod CPAP Oxygen Flow Rate 1.5 Labs Labs: Laboratory Results - last 24 hr 12/11/24 12/12/24 06:09 06:22 WBC 11.74 H RBC 5.89 H Hgb 18.2 H Hct 55.9 H MCV 95 MCH 31 MCHC 33 Plt Count 192 INR 2.86 H VBG pH 7.482 H VBG pCO2 47 VBG pO2 63.8 H VBG HCO3 35 H Sodium 138 138 Potassium 3.8 3.9 Chloride 97 98 Carbon Dioxide 32 33 H Anion Gap 9 7 BUN 61 H 62 H Creatinine 1.1 1.1 Estimated Creat Clear 42.00 42.00 Estimated GFR 53 53 Glucose 135 H 146 H Calcium 8.7 8.6 C-Reactive Protein < 0.5 L
--- NOTE | 2024-12-12 15:27 | PC.SOCIAL ---
Addendum entered by ANNA MARIE Alarcon 12/12/24 16:13: Received a voicemail from Nazanin Electronic Scale Subassembler at [facility] ([phone]). Nazanin is requesting an update on discharge plans. Return phone call placed to Nazanin and provided update on discharge recommendations (SNF for TCU stay). Informed that referrals have been placed. Nazanin would like continued updates on discharge plans. Provided Nazanin with social work main line phone number. Original Note: Discharge planning. Therapy recommending SNF for short term rehab. Met with patient bedside and discussed recommendation. Patient is agreeable to recommendation and is hopeful to find placement near [place]. Patient verbalizes that she does not want placement at [facility] as she has been there in the past and did not have a pleasant experience. Received phone call from patient's sister, provided update on current recommendation and discussion with patient. Patient's sister reiterates that she does not want patient at the [facility]. Patient's sister informs that patient has another sister (Liz) that lives in [place] and [facility]. Cold Strip Roller informs social work will keep family updated on discharge planning. Contacted the following SNF's for possible placement. 1. [facility] in [place]- Phone call to admissions at [phone]. Left voicemail requesting follow up phone call to determine bed availability. Faxed referral to facility at [phone]. 2. [facility] in [place]- Phone call to admissions at [phone]. Left voicemail in admissions with Saman requesting return phone call to determine bed availability. 3. [facility] in [place]- Phone call to admissions at [phone]. Left voicemail requesting return phone call. Faxed referral to [facility] admissions at [phone]. 4. [facility]- Phone call to admissions at [phone]. Left voicemail requesting follow up phone call to determine bed availability, faxed referral to [phone]. 5. [facility] in [place]- Phone call to admissions at [phone]. Spoke to Maria Guadalupe in admissions. There are no openings in [place], but there are openings at [facility] (different campus in [place]). Silas Prado fax is [phone]. Social work will continue to follow up on discharge planning and placement.
[2024-12-12] MEDS: WARFARIN 2.5 MG TABLET 3.75 MG PO (17:44)
[2024-12-12] MEDS: NICOTINE 21 MG PATCH 1 PATCH TRANSDERMA (20:04)
[2024-12-12] MEDS: INSULIN GLARGINE,HUM.REC.ANLOG 100 UNIT/ML INSULN.PEN 25 UNIT SUBCUT (20:57)
[2024-12-13] VITALS (18 sets, daily range): BP systolic 96–123; BP diastolic 58–80; PULSE 81–138; RESP 16–32; TEMP 36–37; O2SAT 88–93
--- NOTE | 2024-12-13 06:54 | PC.NURSE ---
End of shift report [id number]: VSS. Denies pain. Afebrile. Pt utilized her home CPAP with 1.5 L bleed into it. Per previous nurse report pt was able to ambulate to the BR SBA with gaitbelt and walker. Poolroom/Poolhall Manager strongly encouraged ambulation and explained the importance of ambulation. Pt expressed to lead technical writer that she ?wants to go home to be with her cat.? Poolroom/Poolhall Manager educated that in order to discharge home pt needs to prove that she is able to ambulate to BR and pt refused to ambulate to BR and chose to have an incontinent void in brief in bed. Pt was compliant to utilize the bedside commode to change her brief after much encouragement. Call light within reach.?
[2024-12-13 07:07] LABS: Chloride* 96 mmol/L (96-114); Potassium* 4.1 mmol/L (3.6-5.1); Sodium* 138 mmol/L (135-149)
[2024-12-13 07:10] LABS: Blood Urea Nitrogen* 69 mg/dL (7-30); Creatinine* 1.4 mg/dL (0.5-1.5); Estimated Glomerular Filt Rate 39 ml/min
[2024-12-13 07:11] LABS: Anion Gap 7 mEq/L (7-15); Calcium* 8.7 mg/dL (8.4-10.6); Carbon Dioxide* 35 mmol/L (20-32); Glucose* 159 mg/dL (60-115)
[2024-12-13 07:23] LABS: Prothrombin Time 38.8 Seconds
--- NOTE | 2024-12-13 08:12 | PM.IMPN1 ---
Assessment and Plan Assessment and plan (1) Paroxysmal atrial fibrillation: Problem comment: -previous RVR resolved -chronic longstanding. On warfarin. Diltiazem, Digoxin and metoprolol for rate control Status: Acute (2) Acute on chronic respiratory failure with hypoxia and hypercapnia: Problem comment: -Continue with efforts to manage by addressing AFib RVR, COPD exacerbation, heart failure exacerbation -CO2 elevated but manageable -completed doxy and prednisone is being weaned for previously dx and managed COPD exacerbation. Status: Acute (3) Acute on chronic heart failure with preserved ejection fraction (HFpEF): Problem comment: -AFib with RVR, acute on chronic respiratory failure -echocardiogram 12/09/2024: Signs of fluid overload. Normal LV and RV function. Normal EF. Mod TR related to pulmonary hypertension. RV pressure is 35 + RAP. Severe by atrial enlargement. -IV Lasix 40 mg b.i.d. was ordered on admission, increasing 80mg BID IV on 12/10. Home dose is Bumex 2 mg b.i.d. 12/10 - stable. continue increased diuresis. 12/11 - weak - not making much improvement. Chest xray - still needs diuresis and has atelectasis/aspiration, hemodynamically stable. 12/13 slow improvements in being able to walk to bathroom. gets tachy with much activity. Status: Acute (4) Pulmonary hypertension: Problem comment: -Echo from 12/09/2024: Normal LV and RV function. Normal EF. Mod TR related to pulmonary hypertension. RV pressure os 35 + RAP. Severe by atrial enlargement. -possibly multifactorial from advanced lung disease as well as valvular cardiomyopathy from underlying valvular disease with moderate to severe tricuspid valve regurgitation, moderate aortic stenosis, moderate mitral regurgitation -due consideration needs to be given to the possibility of referring patient to trim master operator for assessment of patient responsiveness to medical management verses lung transplant verses end of life care Status: Acute (5) Obstructive sleep apnea on CPAP: Problem comment: On home CPAP. She does have some hypoxia at night. Unfortunately she retained CO2 if supplemental oxygen is given. Status: Acute (6) Insulin-requiring or dependent type II diabetes mellitus: Problem comment: monitor with her home meds, SSI. A1C >9 Status: Chronic (7) Chronic obstructive pulmonary disease: Status: Chronic (8) Chronic kidney disease, stage III (moderate): Problem comment: Status: Acute (9) Physical debility: Problem comment: - multifactorial including morbid obesity, deconditioning, heart failure, lymphedema, COPD, pulmonary hypertension, valvular cardiomyopathy - PT and OT assessment. Status: Acute (10) Morbid obesity with BMI of 50.0-59.9, adult: Problem comment: BMI 53 Status: Acute (11) Chronic anticoagulation: Problem comment: - currently on warfarin for afib - pharmacy managing Status: Acute Subjective Date Seen: 12/13/24 Interval history: Daily Progress Note - Hospital Medicine #: 6 CC: Dyspnea, hypoxia, weakness 24 HOUR UPDATE: heart-rate continues is well managed on oral digoxin, oral metoprolol and cardizem continues to be very weak; not moving much. HR >120 with movement. IV diuresis ongoing at 80mg IVP bid - will transition back to oral bumex. Doxy and Prednisone ongoing from discharge mid last week are discontinued. RN: End of shift report [id number]: VSS. Denies pain. Afebrile. Pt utilized her home CPAP with 1.5 L bleed into it. Per previous nurse report pt was able to ambulate to the BR SBA with gaitbelt and walker. Public Speaking Instructor strongly encouraged ambulation and explained the importance of ambulation. Pt expressed to resume writer that she ?wants to go home to be with her cat.? Public Speaking Instructor educated that in order to discharge home pt needs to prove that she is able to ambulate to BR and pt refused to ambulate to BR and chose to have an incontinent void in brief in bed. Pt was compliant to utilize the bedside commode to change her brief after much encouragement. Call light within reach.? Notable Labs, Micro, Rads, Interventions: CBC reveals known elevated hemoglobin (smoker) and slight bump in total wbc. INR is 3.8 VBG is stable. Chemistries are quite reassuring. She has known chronic kidney disease is a little worse this am. 69/1.4. will stop IV diuresis and transition back to oral bumex. A1c 9.1 Mildly hypocalcemic with known secondary hyperparathyroidism. Her BNP from current and most previous admissions are the same. Echo: As reported she has a normal EF. Globally her LV and RV function are intact. She has moderate TR, a dilated inferior vena cava, a dilated ascending aorta at 4.2 cm. No significant or AR. Severe biatrial enlargement. Objective: chronically ill appearing; comfortable. Vitals: see above Lungs: Clear but decreased at the bases; shallow inspiration. Cardiac: irregular. no harsh murmurs. Edema: chronic lymphedema noted. Disposition/Potential discharge - ready for discharge to TCU Today I spent 50minutes seeing the patient, reviewing Expanse and EPIC notes/diagnostics, discussing the care plan with our care time that includes social work, PT/OT, pharmacy, RT, fdc and documenting my impressions and plan in the medical record. Prolonged Physician Services [id number] ([facility]) in conjunction with: [id number] (subsequent visit; 50 mins + 15 mins prolonged services = 65 mins total) Exam Const: Vital Signs, click to edit/add: Vital Signs - 24 hr 12/12/24 08:46 12/12/24 11:20 12/12/24 11:20 Temperature 96.5 F L Pulse Rate 102 H Pulse Rate [Pulse Oximeter] 89 Respiratory Rate 22 Blood Pressure [Le ft Arm] Blood Pressure [R forearm] 102/84 Pulse Oximetry 92 93 Oxygen Delivery Me thod CPAP Oxygen Flow Rate 1.5 Fraction of Inspir ed Oxygen 12/12/24 16:00 12/12/24 16:00 12/12/24 16:00 Temperature 97 F L Pulse Rate Pulse Rate [Pulse Oximeter] 97 85 Respiratory Rate 20 Blood Pressure [Le ft Arm] 119/64 Blood Pressure [R forearm] Pulse Oximetry 90 90 Oxygen Delivery Me thod CPAP Oxygen Flow Rate Fraction of Inspir ed Oxygen 12/12/24 17:04 12/12/24 19:30 12/12/24 20:00 Temperature 97.7 F Pulse Rate 91 Pulse Rate [Pulse Oximeter] 90 Respiratory Rate 24 Blood Pressure [Le ft Arm] Blood Pressure [R forearm] 111/75 Pulse Oximetry 91 91 Oxygen Delivery Me thod CPAP Oxygen Flow Rate 1.5 Fraction of Inspir ed Oxygen 2 12/12/24 23:00 12/12/24 23:00 12/12/24 23:00 Temperature 96.8 F L Pulse Rate 80 Pulse Rate [Pulse Oximeter] 90 88 Respiratory Rate 24 20 Blood Pressure [Le ft Arm] Blood Pressure [R forearm] 110/75 Pulse Oximetry 90 Oxygen Delivery Me thod CPAP Oxygen Flow Rate 1.5 Fraction of Inspir ed Oxygen 2 12/13/24 00:00 12/13/24 02:23 12/13/24 02:27 Temperature 96.8 F L Pulse Rate Pulse Rate [Pulse Oximeter] 95 Respiratory Rate 24 Blood Pressure [Le ft Arm] Blood Pressure [R forearm] 110/75 Pulse Oximetry 92 88 88 Oxygen Delivery Me thod CPAP Oxygen Flow Rate 1.5 Fraction of Inspir ed Oxygen 2 Labs Labs: Laboratory Results - last 24 hr 12/13/24 06:34 INR 3.80 H Sodium 138 Potassium 4.1 Chloride 96 Carbon Dioxide 35 H Anion Gap 7 BUN 69 H Creatinine 1.4 Estimated Creat Clear 33.00 Estimated GFR 39 Glucose 159 H Calcium 8.7
[2024-12-13] MEDS: POTASSIUM CHLORIDE 10 MEQ CAPSULE ER 40 MEQ PO ×2 (09:12→20:53)
[2024-12-13] MEDS: METOPROLOL SUCCINATE (XL) 100 MG TAB 200 MG PO (09:13)
[2024-12-13] MEDS: EMPAGLIFLOZIN 25 MG TABLET PO (09:13)
[2024-12-13] MEDS: predniSONE 20 MG TABLET PO (09:13)
[2024-12-13] MEDS: DIGOXIN 250 MCG TABLET PO (09:13)
[2024-12-13] MEDS: dilTIAZem 240 MG CAP (CD) PO (09:13)
[2024-12-13] MEDS: INSULIN ASPART 100 UNIT/ML SUBCUT ×3 (09:14→17:29)
[2024-12-13] MEDS: SODIUM CHLORIDE 0.9 % (FLUSH) 10 ML SYRINGE 5 ML IVF (09:14)
[2024-12-13] MEDS: NYSTATIN POWDER 1 APPLIC TOPICAL (09:24)
--- NOTE | 2024-12-13 09:27 | PC.PHA ---
Warfarin consult note: INR 3.8 today. Will hold dose and watch over the next couple of days.
[2024-12-13] MEDS: BUMETANIDE 1 MG TABLET 2 MG PO ×2 (09:55→17:29)
--- NOTE | 2024-12-13 10:43 | PC.NURSE ---
Patient refused to get into chair for breakfast. Compromised that patient would walk into bathroom and then sit up at the edge of bed. This was completed. Patient had a large bowel movement and needed help with cleansing area. patient has reddened abdominal fold and reddened groin. Nystatin powder applied. Patient very tearful during morning cares. Stated I just want to go home. My sister is coming at 1pm to pick me up. Notified charge nurse and MD. Savings Counselor offered support and listened to patients concerns.
[2024-12-13] MEDS: CITALOPRAM HYDROBROMIDE 20 MG TABLET 10 MG PO (11:52)
[2024-12-13] MEDS: IPRAT-ALBUT 0.5-2.5 MG/3 ML NEB 1 NEB IH ×3 (14:49→20:53)
--- NOTE | 2024-12-13 15:28 | PC.NURSE ---
End of shift note: Patient up to bathroom X1 and up to chair X1 today. Patient stated she was depressed and wanted to go home. Milk Inspector listened and offered support. Patient stated I am not usually this crabby and I am sorry. Milk Inspector understood and continued to offer support to patient. Patient is not motivated to get out of bed but did compromise to the bathroom X1 and chair X1. Offered shower but patient declined. Patient had 3 wet briefs that were incontinent and 1 extra large continent BM today. PIV infiltrated so patient was changed from IV lasix to PO medication. okay to leave IV out. Lung sounds are diminished. Patient wears her CPAP most of the day. Had 1.5L oxygen into CPAP but this was taken off this morning and has been on RA with CPAP all day with o2 sats at 88-92%. Patient denies pain and nausea. Needed a lot of encouragement to eat food. Patient did have softer blood pressures, but resolved by afternoon. manager field services continues to look for placement. Patient alert and oriented.
--- NOTE | 2024-12-13 16:25 | PC.SOCIAL ---
Discharge planning: electrical worker followed up on referral calls made yesterday regarding evaluation for admit for short term rehab stay: [facility]. [facility] - [phone] spoke with Radha who requested additional information sent. Faxed requested information to [phone] and awaiting decision on admit. 2. [facility] in [place] - [phone]. Faxed requested information ot [phone]. Awaiting decision on admit. 3. [facility] - [phone] - spoke with Marga who states they are reviewing but do not yet have a decision on admit. Awaiting decision. 4. [facility] - [phone] left message requesting call back on decision. Information was faxed 12/12/24. 5. [facility] - does not have availability. 6. [facility] in [place] - faxed referral to [phone] and awaiting call back with decision on admit. 7. [facility] - [phone] left message requesting call back. 8. [facility] Spoke with pt's sister, Agustina Arias [phone] who confirmed family and pt are requesting placement as close to [place] as possible as pt has a sister who lives in [place]. Sister is pleased pt is in agreement with placement. Agustina confirmed pt does not want to go to [facility] as she had a tour there and was not impressed. Agustina states she lives in [place] but assists with planning as she is pt's POA for healthcare and finances if she is unable to make her own decisions. Encouraged sister to have pt provide a copy of that document to be included in pt's chart for use in future if needed. electrical worker did a search of facilities within 15 miles of [place] and called the following facilities from that list who are able to accommodate bariatric patients. 1. [facility] - [phone] - left message requesting call back. 2. [facility] - [phone] spoke with Ivette, no bed available this week. Can call back next week if still looking. 3. [facility] - secure emailed referral to Dylan in admissions requesting evaluation for admit. 4. [facility] - [phone] - left message and awaiting call back 5. [facility] - [phone] - not able to meet patient's needs. 6. [facility] [phone] - Left message and awaiting call back. 7. [facility] - [phone] - Left message and awaiting call back. 8. [facility] - [phone], they are unable to meet patient's need. 9. [facility] [phone] - Left message and awaiting call back. electrical worker to follow up as needed.
--- NOTE | 2024-12-13 19:07 | PC.NURSE ---
End of shift [id number] - RN took over pt care at approximately 1500. Pt alert, oriented, cooperative. Tolerating RA and home CPAP. Denies SOB, n/v. Up to chair during shift, assist x1 walker/gait belt. Pt appears to be resting comfortably in bed at end of shift with call light within reach.
[2024-12-13] MEDS: BUDESONIDE 0.5 MG/2ML NEB NEB (20:53)
[2024-12-13] MEDS: INSULIN GLARGINE,HUM.REC.ANLOG 100 UNIT/ML INSULN.PEN 25 UNIT SUBCUT (20:53)
[2024-12-13] MEDS: NICOTINE 21 MG PATCH 1 PATCH TRANSDERMA (20:53)
[2024-12-14] VITALS (8 sets, daily range): BP systolic 118–139; BP diastolic 76–91; PULSE 72–103; RESP 16–22; TEMP 35.8–36; O2SAT 91–94
[2024-12-14 06:52] LABS: Chloride* 97 mmol/L (96-114); Potassium* 4.1 mmol/L (3.6-5.1); Sodium* 135 mmol/L (135-149)
--- NOTE | 2024-12-14 06:52 | PC.NURSE ---
End of shift report [id number]: VSS. Alert and orientated. Denies pain. Afebrile. Pt utilized her home CPAP overnight.?Explosive Man strongly encouraged ambulation and explained the importance of ambulation, offering to bring commode next to bed. Pt expressed to writer technical publications that she ?will not walk to commode.? Explosive Man provided education on the importance?of utilizing the toilet instead of the brief?to prevent further skin irritation. Explosive Man noted blanchable redness in patients bilateral inguinal folds, between the buttocks and near the coccyx, barrier cream applied and left open to air. Pt refused to be repositioned on her side?to offload pressure on her back side and pt stated ?I don't care anymore, I am going home tomorrow.??Briefs were changed in bed with barrier cream applied x2. Call light within reach.?
[2024-12-14 06:55] LABS: Anion Gap 7 mEq/L (7-15); Blood Urea Nitrogen* 69 mg/dL (7-30); Calcium* 8.6 mg/dL (8.4-10.6); Carbon Dioxide* 31 mmol/L (20-32); Creatinine* 1.3 mg/dL (0.5-1.5); Est. Creatinine Clearance* 35.54; Estimated Glomerular Filt Rate 43 ml/min; Glucose* 136 mg/dL (60-115)
[2024-12-14 07:12] LABS: INR 4.26 (0.91-1.10); Prothrombin Time 42.3 Seconds
[2024-12-14] MEDS: METOPROLOL SUCCINATE (XL) 100 MG TAB 200 MG PO (08:42)
[2024-12-14] MEDS: DIGOXIN 250 MCG TABLET PO (08:43)
[2024-12-14] MEDS: CITALOPRAM HYDROBROMIDE 20 MG TABLET 10 MG PO (08:43)
[2024-12-14] MEDS: predniSONE 20 MG TABLET PO (08:43)
[2024-12-14] MEDS: dilTIAZem 240 MG CAP (CD) PO (08:43)
[2024-12-14] MEDS: POTASSIUM CHLORIDE 10 MEQ CAPSULE ER 40 MEQ PO (08:43)
[2024-12-14] MEDS: BUMETANIDE 1 MG TABLET 2 MG PO (08:43)
[2024-12-14] MEDS: EMPAGLIFLOZIN 25 MG TABLET PO (08:43)
[2024-12-14] MEDS: IPRAT-ALBUT 0.5-2.5 MG/3 ML NEB 1 NEB IH (08:44)
[2024-12-14] MEDS: BUDESONIDE 0.5 MG/2ML NEB NEB (08:44)
--- NOTE | 2024-12-14 10:00 | PC.NURSE ---
Patient pleasant, cooperative with cares today. Patient agreeable to eat in the chair and showered. This was done with the help of speech writer. Patient able to transfer from bed to chair with stand by assist, walker, and gaitbelt. Patient had a large incontinent urine, and a large continent bowel movement. Blood sugar was 147. Pills taken whole with water. Pericare was performed.
--- NOTE | 2024-12-14 11:37 | PC.NURSE ---
Report given to ARIELLA Mcneal at [facility]. All questions answered. [phone]
--- NOTE | 2024-12-14 12:00 | PC.NURSE ---
Patient left via non-emergent EMS. Report given to the team. All belongings sent with patient. All questions answered.
--- NOTE | 2024-12-14 12:12 | PC.SOCIAL ---
Discharge plan: Late Entry: PT has been accepted for admit to [facility] for admit today. Facility has both a private and shared room available. Private room is extra private pay cost of $35/day above what insurance will cover. Met with pt who is aware and agrees with this plan and is requesting private room. Pt is requesting EMS transport at discharge today and is aware and agrees to payt privately estimate of $288 for this transport. Private Pay form signed by pt. Provided pt with copy of previously signed Important Message from Medicare. Pt requested child welfare social worker contact her sister Agustina with update on discharge plan. Called sister Agustina and confirmed discharge plans. Sister is aware and agrees with the plans. Shared information by phone and emailed her resource information that may be useful to them in the future including assisted living, [facility], [facility] and home child care provider care information and answered questions about these resources. was appreciative of information provided. Secure emailed discharge information to group home facility and confirmed receipt.
--- NOTE | 2024-12-14 13:37 | P.DS_ITS ---
DS: Providers Provider Date Seen: 12/14/24 Date of admission: 12/08/24 18:42 Primary care physician: Amarilis Rincon MD Admitting Clinician: Joe Diana MD Consults: 12/08/24 18:43 Consult to Nutrition [CONS] Routine Comment: Reason for consult:: Miscellaneous Comment: 2 g sodium diet Consult to Occupational Therapy [CONS] Routine Comment: Reason(s) for OT Consult:: Evaluate and Treat Any Restrictions?:: No Restrictions Consult to Physical Therapy [CONS] Routine Comment: Reason(s) for PT Consult:: Evaluate and Treat Any Restrictions?:: No Restrictions Consult to Respiratory Therapy [CONS] Routine Comment: Reason(s) for RT Consult:: Consult Consult to Urology Surgeon [CONS] Routine Comment: Reason for Consult:: Discharge Planning Needs 12/08/24 18:55 Consult to Urology Surgeon [CONS] Routine Comment: Reason for Consult:: Social Service Consult Attending Physician on discharge: Joe Diana MD Date of Discharge: 12/14/24 DS: Diagnosis Discharge Diagnosis (1) Atrial fibrillation with rapid ventricular response: Status: Acute Problem details: -Resolved after 24 hours on a Cardizem drip in the addition of digoxin- specific etiology for the tachycardia response is not identified. -At discharge she was on her previous home doses of metoprolol and diltiazem. We also had additional daily digoxin. A p.r.n. order for 30 mg Cardizem q.6 hours for tachycardia greater than 120 was also sent to the TCU. -There is a digoxin level pending at discharge and info relayed to the TCU to monitor (2) Paroxysmal atrial fibrillation: Status: Acute Problem details: -previous RVR resolved -chronic longstanding. On warfarin. Diltiazem, Digoxin and metoprolol for rate control -warfarin was on hold at discharge secondary to an INR greater than 4. This information was related to the TCU. (3) Acute on chronic heart failure with preserved ejection fraction (HFpEF): Status: Acute Problem details: -AFib with RVR, acute on chronic respiratory failure cause exacerbation -echocardiogram 12/09/2024: Signs of fluid overload. Normal LV and RV functio n. Normal EF. Mod TR related to pulmonary hypertension. RV pressure is 35 + RAP. Severe by atrial enlargement. -IV Lasix 40 mg b.i.d. was ordered on admission, increasing 80mg BID IV on 12/10. Home dose is Bumex 2 mg b.i.d. 12/10 - stable. continue increased diuresis. 12/11 - weak - not making much improvement. Chest xray - still needs diuresis and has atelectasis/aspiration, hemodynamically stable. 12/13 slow improvements in being able to walk to bathroom. gets tachy with much activity. (4) Pulmonary hypertension: Status: Acute Problem details: -Echo from 12/09/2024: Normal LV and RV function. Normal EF. Mod TR related to pulmonary hypertension. RV pressure os 35 + RAP. Severe by atrial enlargement. -possibly multifactorial from advanced lung disease as well as valvular cardiomyopathy from underlying valvular disease with moderate to severe tricuspid valve regurgitation, moderate aortic stenosis, moderate mitral regurgitation -due consideration needs to be given to the possibility of referring patient to loading unit operator seating for assessment of patient responsiveness to medical management verses lung transplant verses end of life care (5) Acute on chronic respiratory failure with hypoxia and hypercapnia: Status: Acute Problem details: -Continue with efforts to manage by addressing AFib RVR, COPD exacerbation, heart failure exacerbation -CO2 elevated but manageable -completed doxy and prednisone is being weaned for previously dx and managed COPD exacerbation. (6) Chronic obstructive pulmonary disease: Status: Chronic (7) Obstructive sleep apnea on CPAP: Status: Acute Problem details: On home CPAP. She does have some hypoxia at night. Unfortunately she retained CO2 if supplemental oxygen is given. -limit is 1.5 L bleeding to her CPAP. She does use CPAP off and on throughout the entire day. (8) Insulin-requiring or dependent type II diabetes mellitus: Status: Chronic Problem details: monitor with her home meds, SSI. A1C >9 (9) Chronic kidney disease, stage III (moderate): Status: Acute Problem details: (10) Smoking greater than 40 pack years: Status: Acute Problem details: States she quit smoking on 12/05/2024. Nicotine patches ordered. (11) Vitamin D deficiency: Status: Acute (12) Secondary hyperparathyroidism: Status: Acute Problem details: PTH high, calcium low Suspect secondary to CKD. Follow up with PCP as outpatient. (13) Incontinence associated dermatitis: Status: Acute Problem details: - secondary to chronic urinary incontinence and inability for her to care for herself (14) Physical debility: Status: Acute Problem details: - multifactorial including morbid obesity, deconditioning, heart failure, lymphedema, COPD, pulmonary hypertension, valvular cardiomyopathy - PT and OT assessment. (15) Morbid obesity with BMI of 50.0-59.9, adult: Status: Acute Problem details: BMI 53 (16) Failure to thrive in adult: Status: Acute Problem details: Appreciate PT/OT. Able to ambulate with walker and SBA. Patient refuses SNF. (17) Chronic acquired lymphedema: Status: Acute Problem details: - OT ordered to help with lymphedema therapies - continue with outpatient lymphedema clinic DS: Summary Hospital Course Hospital Course: FINAL DIAGNOSIS/FOLLOW UP ISSUES: 1. Atrial fibrillation with RVR. She has not had any recent admissions for RVR. She has longstanding AFib. She had previously been admitted for an congestive heart failure and COPD exacerbation. She was only home 36 hours. We added digoxin. Otherwise her previous metoprolol and diltiazem had previously managed her rate. The new 3 med regimen is now effective. Her warfarin has continued. 2. Due to several chronic disease better poorly managed and depression/personality disorder Sydnie's quality of life is poor. She has extremely poor exercise tolerance, poor insight management skills of her chronic disease. A palliative care consult at discharge is recommended. BRIEF HOSPITAL COURSE: Patient was admitted for 7 days. This was 36 hours after a 3 day admission with our team for COPD and CHF exacerbation. Synopsis of acute inpatient issues are outlined above. Chronic medical conditions with notable findings outlined above. The most difficult thing with Sydnie is encouragement, motivation and engagement. We quickly got her rate under control for the AFib. However the next few days until transfer to TCU was more halfway care. She has several chronic diseases which include chronic CHF, chronic COPD, type 2 diabetes, sleep apnea, lymphedema and morbid obesity that are difficult for her to manage as she lives alone. Her limited mobility exacerbates all of this. We added Celexa at 10 mg daily to help with her mood. Essentially as above we added digoxin Celexa and had therapies work with her. Ultimately she was transferred to [facility] in [place], [place]. DISCHARGE MEDICATIONS: See Reconciled list - SIGNIFICANT CHANGES: Celexa Digoxin The rest of her prednisone taper Nicotine patches Insulin sliding scale Specific instructions to the patient and follow-up are outlined below. REVIEW OF SYSTEMS No new chest pain or dyspnea Pain controlled No voiding difficulties Tolerating diet challenge PHYSICAL EXAM: CONSTITUTIONAL: Awake, alert, flat affect.. GENERAL: Well-developed and above ideal body weight, in no respiratory distress. VITAL SIGNS: see record. HEENT: Sclerae are anicteric. No petechiae. CARDIAC: rhythm is irregular There is no S3 or rub. No harsh murmurs. Extremities show 1+ edema with symmetrical pulses. PULM: good air entry with no wheeze. NEURO: Speech is fluent. A brief neurologic exam is negative. SKIN: No rashes, petechiae, concerning changes PSYCHIATRIC: Flat, depressed. DISPOSITION: Tcu Time spent on discharge 37 minutes. Status at Discharge Functional status at discharge: uses cane/walker Overall status at discharge: patient is progressing back to baseline Time Spent with Patient Time attestation: Total time spent providing and/or coordinating discharge services: Time spent: Greater than 30 minutes Exam Const: Vital Signs, click to edit/add: Vital Signs - 24 hr 12/13/24 14:48 12/13/24 15:00 12/13/24 15:27 Temperature 98.6 F 96.8 F L Pulse Rate 87 Pulse Rate [Pulse Oximeter] 83 81 Respiratory Rate 16 20 Blood Pressure [R forearm] 109/69 110/66 Pulse Oximetry 90 89 Oxygen Delivery Me thod CPAP Room Air 12/13/24 16:00 12/13/24 19:00 12/13/24 20:00 Temperature 97.5 F L Pulse Rate Pulse Rate [Pulse Oximeter] 90 Respiratory Rate 32 H Blood Pressure [R forearm] 123/65 Pulse Oximetry 91 91 91 Oxygen Delivery Me thod CPAP 12/13/24 23:00 12/13/24 23:00 12/14/24 00:00 Temperature 97.2 F L Pulse Rate Pulse Rate [Pulse Oximeter] 92 92 Respiratory Rate 20 20 Blood Pressure [R forearm] 103/58 L Pulse Oximetry 91 93 Oxygen Delivery Me thod CPAP 12/14/24 02:35 12/14/24 03:00 12/14/24 03:55 Temperature 96.8 F L Pulse Rate 72 Pulse Rate [Pulse Oximeter] 94 Respiratory Rate 22 Blood Pressure [R forearm] 139/91 H Pulse Oximetry 94 91 Oxygen Delivery Me thod CPAP 12/14/24 07:59 12/14/24 08:05 12/14/24 08:43 Temperature 96.4 F L Pulse Rate 83 103 H Pulse Rate [Pulse Oximeter] 89 Respiratory Rate 16 Blood Pressure [R forearm] 118/76 Pulse Oximetry 91 Oxygen Delivery Me thod Room Air 12/14/24 10:19 Temperature Pulse Rate Pulse Rate [Pulse Oximeter] Respiratory Rate Blood Pressure [R forearm] Pulse Oximetry 93 Oxygen Delivery Me thod DS: Data Data Completed and Pending Completed studies during hospitalization: Procedures Drainage of Bladder with Drainage Device, Via Natural or Artificial Opening (04/09/23) Introduction of Other Gas into Respiratory Tract, Via Natural or Artificial Opening (12/05/24) Introduction of Other Therapeutic Substance into Respiratory Tract, Via Natural or Artificial Opening (08/24/24) Labs on day of discharge: Labs from last 24 hours 12/14/24 12/14/24 09:45 06:08 INR 4.26 H Sodium 135 Potassium 4.1 Chloride 97 Carbon Dioxide 31 Anion Gap 7 BUN 69 H Creatinine 1.3 Estimated Creat Clear 35.54 Estimated GFR 43 Glucose 136 H Calcium 8.6 Digoxin Pending Lab Acknowledgement Test Added Discharge Plan Discharge Disposition: [facility] Date of Admission: 12/08/24 18:42 Attending Provider on Discharge: Maria Guadalupe Huang Primary Care Provider: Amarilis Rincon Condition: Unchanged Discharge Medications: New nicotine 21 mg/24 hr Patch 24 Hour 1 patch transdermal Q24H Qty: 30 0RF prednisone 10 mg tablet 10 mg PO DIRECTED Qty: 6 0RF Rx Instructions: take two tabs (20mg) on 12/15, then 1 tab (10mg) for 4 days digoxin 250 mcg (0.25 mg) Tablet 250 mcg PO DAILY Qty: 30 0RF citalopram 20 mg Tablet 10 mg PO DAILY Qty: 15 0RF insulin aspart U-100 100 unit/mL (3 mL) Insulin Pen See Rx Instructions .ROUTE .COMPLEX Qty: 15 0RF Rx Instructions: Blood Glucose 150 or less No coverage Blood Glucose 151-200 3 unit Blood Glucose 201-250 6 units Blood Glucose 251-300 9 units Blood Glucose 301-350 12 units Blood Glucose 351 to 400 15 units Blood Glucose 401 and greater 18 units and draw glucose Call MD, then recheck in 2 hours diltiazem HCl 30 mg tablet 30 mg PO Q6H Qty: 30 0RF Rx Instructions: give only if HR is consistently higher than 120 for more than 1-2 hours goal HR is less than 100 but ok if between 110-120 for periods of time. diltiazem HCl 30 mg Tablet 30 mg PO Q6H PRNQty: 30 0RF Rx Instructions: For HR >120 Continued atorvastatin 80 mg tablet 80 mg PO HS diltiazem HCl 240 mg capsule,extended release 24hr 240 mg PO DAILY metoprolol succinate 200 mg tablet extended release 24 hr 200 mg PO DAILY bumetanide 1 mg tablet 2 mg PO BID@09,16 albuterol sulfate 90 mcg/actuation HFA aerosol inhaler 2 puff INHALATION Q4H PRN (Reason: dyspnea) insulin glargine [Lantus Solostar U-100 Insulin] 100 unit/mL (3 mL) insulin pen 25 unit subcut HS acetaminophen [Tylenol Extra Strength] 500 mg tablet 1,000 mg PO Q8H PRN cholecalciferol (vitamin D3) 25 mcg (1,000 unit) capsule 25 mcg PO DAILY potassium chloride 20 mEq tablet extended release 40 meq PO BID warfarin 2.5 mg tablet 2.5 - 3.75 mg PO QPM Qty: 45 0RF Rx Instructions: 3.75mg every other day alternating with 2.5 mg every other day ipratropium-albuterol 0.5 mg-3 mg(2.5 mg base)/3 mL Solution For Nebulization 2.5 ml inhalation QID Qty: 120 0RF nicotine 21 mg/24 hr Patch 24 Hour 1 patch transdermal Q24H Qty: 28 0RF metolazone 2.5 mg tablet 5 mg PO DAILY PRN nystatin 100,000 unit/gram cream 1 applic topical BID PRN nystatin 100,000 unit/gram powder 1 applic topical QID PRN Jardiance 25 mg tablet 25 mg PO DAILY gabapentin 300 mg capsule 300 - 600 mg PO BID Rx Instructions: 300mg am, 600mg hs Discontinued prednisone 20 mg Tablet 40 mg PO DAILYWM Qty: 6 0RF doxycycline hyclate 100 mg capsule 100 mg PO BID Discharge Orders: Discharge Order (Routine); Ordered 12/14/24 Ordered By: Maria Guadalupe Huang Additional Instructions: If patient becomes tachycardiac with AFIB, give diltiazem 30mg po q6 hours for goal rate less than 100. pt wears her cpap throughout day and night. she can don and doff this equipment as she sees fit - limit oxygen bleed in to 1.5L New chronic meds this hospitalization is digoxin and celexa HOLD WARFARIN UNTIL INR IS LESS THAN 2.5, RECHECK INR DAILY FOR THE NEXT FEW DAYS. Activity Level: Activity as Tolerated, Use Walker and Other Activity Detail: stand-by assistance Discharge Diet: Diabetic Follow Up Appointments: Amarilis Rincon MD [Primary Care Provider, [facility]] Referral Note: SNF to arrange Forms: [facility] Info Instructions Admit to: SNF Discharge Potential: Fair Length of Stay: <30 days Can use facility standing orders?: Yes Code Status: DNR/DNI Rehab Potential: Fair Therapy: Physical Therapy and Occupational Therapy Therapy Orders: Evaluate and Treat Oxygen Delivery Method: cpap - pt has her own Oxygen Flow Rate: no more than 1.5 liters bleed in oxygen to CPAP Urinary Catheter: No Glucose Checks: QAC QHS Next INR: daily while on prednisone and then per direction of medical imaging specialist INR Goal: 2-3 for chronic AFIB Lab Orders: Digoxin, venous blood gas and bmp in approx 1 week Orders are good >30 days: Yes
[2024-12-14 15:37] LABS: Digoxin* 1.8 ng/mL (0.8-2.0)
== END 2024-12-14 12:00 | DRG 291 ==
LOC: ED 17:43 → MEDSURG 18:15
PROVIDERS: Family Medicine; Admitting Provider Internal Medicine; Emergency Provider Family Medicine; PCP Family Medicine; Visit Provider Internal Medicine
DX: I13.0 Hypertensive heart and chronic kidney disease with heart failure and stage 1 through stage 4 chronic kidney disease, or unspecified chronic kidney disease (principal); I50.33 Acute on chronic diastolic (congestive) heart failure; J96.22 Acute and chronic respiratory failure with hypercapnia; J96.21 Acute and chronic respiratory failure with hypoxia; J44.1 Chronic obstructive pulmonary disease with (acute) exacerbation; E66.2 Morbid (severe) obesity with alveolar hypoventilation; Z68.43 Body mass index [BMI] 50.0-59.9, adult; I27.23 Pulmonary hypertension due to lung diseases and hypoxia; I27.20 Pulmonary hypertension, unspecified; I48.0 Paroxysmal atrial fibrillation; E11.22 Type 2 diabetes mellitus with diabetic chronic kidney disease; N18.30 Chronic kidney disease, stage 3 unspecified; Z79.84 Long term (current) use of oral hypoglycemic drugs; Z79.01 Long term (current) use of anticoagulants; L24.A2 Irritant contact dermatitis due to fecal, urinary or dual incontinence; R32 Unspecified urinary incontinence; E21.3 Hyperparathyroidism, unspecified; I08.3 Combined rheumatic disorders of mitral, aortic and tricuspid valves; Z99.89 Dependence on other enabling machines and devices; I42.8 Other cardiomyopathies; E11.42 Type 2 diabetes mellitus with diabetic polyneuropathy; I89.0 Lymphedema, not elsewhere classified; Z79.4 Long term (current) use of insulin; F32.9 Major depressive disorder, single episode, unspecified; E55.9 Vitamin D deficiency, unspecified; F17.210 Nicotine dependence, cigarettes, uncomplicated; Z96.651 Presence of right artificial knee joint; Z96.652 Presence of left artificial knee joint; Z96.642 Presence of left artificial hip joint; Z96.641 Presence of right artificial hip joint; S81.811A Laceration without foreign body, right lower leg, initial encounter
CPT/HCPCS: 36415; 71045; 71046; 80048; 80053; 80069; 80162; 82803; 82962; 83036; 83540; 83550; 83605; 83735; 83880; 84100; 84145; 84443; 84484; 85025; 85027; 85610; 86140; 87631; 93005; 93306; 94640; 94761; 97110; 97116; 97162; 97165; 97530; 97535; 99285; A9270; J1160; J1815; J1938; J2919; J3475; J3490; J7050; J7512; J7626; Q9957; S4990

== ENCOUNTER 2024-12-14 11:45 | Outpatient (CLI) | payer MEDICARE, SELFPAY ==
--- OUTSIDE RECORDS SUMMARY | 2024-11-01 05:53 | XMS_ITS | Encounter Summary ---
Author Organization [facility] Address [address] [place] [address] Care Team Providers Care Precision Layout Worker Name Role Phone Lexie Bose SVP OPERATIONS ENGINE MECHANIC Unavailable [phone] Viviane Pacheco SVP OPERATIONS ENGINE MECHANIC Unavailable [phone] Genevieve Puentes NP Unavailable [phone] Tin Mckenzie MD Unavailable [phone] Amarilis Rincon MD Primary Care Provider + [phone] Mauricio New MD Unavailable [phone] Sheila Lara MD Unavailable Reason for Visit * Auth/Cert Specialty Diagnoses / Procedures Referred By Otoniel t Referred To Contact Cardiology Diagnoses Cardiac pacemaker in situ Atrial fibrillation with RVR (H) Congestive heart failure, unspecified HF chronicity, unspecified heart failure type (H) PH Procedures [facility] RIGHT HEART CATH O2 SATURATION & CARDIAC OUTPUT SC RIGHT HEART CATH O2 SATURATION & CARDIAC OUTPUT Right Heart Catheterization [facility] [address] [address] Phone: tel: Referral ID Status Reason Start Date Expiration Date Visits Re quested Visits Authorized [id number] 1 1 Encounter Details Date Type Department Care Team (Latest Contact Info) Description 11/01/2024 5:53 AM CDT - 11/01/2024 10:35 AM CDT Hospital Encounter [facility] [address] [address] Sheila Lara MD [id number] [facility] [address] [id number] Acute decompensated heart failure (H) (Primary Dx); Cardiac pacemaker in situ; Atrial fibrillation with RVR (H); Congestive heart failure, unspecified HF chronicity, unspecified heart failure type (H) Discharge Disposition: Home or Self Care Social History Tobacco Use Types Packs/Day Years Used Date Smoking Tobacco: Every Day Cigarettes Passive Smoke Exposure: Never Smokeless Tobacco: Never Alcohol Use Standard Drinks/Week Comments Not Currently 0 (1 standard drink = 0.6 oz pur e alcohol) Adolescent Education Answer Date Record ed Getting School Help Needed Not on file 03/21 Interpersonal Safety Answer Date Record ed Do you feel physically and e motionally safe where you currently live? Yes 11/01/2024 Within the past 12 months, h ave you been hit, slapped, kicked or otherwise physically hurt by someone? No 11/01/2024 Within the past 12 months, h ave you been humiliated or emotionally abused in other ways by your partner or ex-partner? No 11/01/2024 Comments No Sex and Gender Information Value Date Recorded Sex Assigned at Not on file Legal Sex Female 11:51 AM CDT Gender Identity Not on file Sexual Orientation Not on file documented as of this encounter Last Filed Vital Signs Vital Sign Reading Time Taken Comments Blood Pressure 106/61 11/01/2024 10:15 AM CDT Pulse 92 11/01/2024 10:15 AM CDT Temperature 36.6 C (97.9 F) 11/01/2024 6:32 AM CDT Respiratory Rate 16 11/01/2024 10:15 AM CDT Oxygen Saturation 96% 11/01/2024 10:15 AM CDT Inhaled Oxygen Concentration - - Weight 152.9 kg (337 lb) 11/01/2024 6:32 AM CDT Height 167.6 cm (5' 6) 11/01/2024 6:32 AM CDT Body Mass Index 54.39 11/01/2024 6:32 AM CDT documented in this encounter Discharge Instructions * Discharge Instructions* Naheed Sosa RN - 11/01/2024 7:23 AM CDT Right Heart Cath Discharge Instructions - Neck After you go home: Have an adult stay with you until tomorrow. Drink extra fluids for 2 days. You may resume your normal diet. No smoking For 24 hours - due to the sedation you received: Relax and take it easy. Do NOT make any important or legal decisions. Do NOT drive or operate machines at home or at work. Do NOT drink alcohol. Care of Neck Puncture Site: For the first 24 hrs - check the puncture site every 1-2 hours while awake. It is normal to have soreness at the puncture site and mild tingling in your hand for up to 3 days. Remove the bandaid after 24 hours. If there is minor oozing, apply another bandaid and remove it after 12 hours. You may shower tomorrow. Do NOT take a bath, or use a hot tub or pool for at least 3 days. Do NOT scrub the site. Do not use lotion or powder near the puncture site. Activity - For 2 days: Avoid heavy lifting or the overuse of your shoulder. Bleeding: If you start bleeding from the site in your neck, sit down and press gently on the site for 10 minutes. Once bleeding stops, sit still for 2 hours. Call [facility] Clinic as soon as you can Call 911 right away if you have heavy bleeding or bleeding that does not stop. Medicines: If you are taking an antiplatelet medication such as Plavix, Brilinta or Effient, do not stop taking it until you talk to your bottling room worker. If you are on Metformin (Glucophage), do not restart it until you have blood tests (within 2 to 3 days after discharge). After you have your blood drawn, you may restart the Metformin. Take your medications, including blood thinners, unless your provider tells you not to. If you take Coumadin (Warfarin), have your INR checked by your provider in 3-5 days. Call your clinic to schedule this. If you have stopped any medicines, check with your provider about when to restart them. Follow Up Appointments: Follow up with [facility] Heart Nurse Practitioner at [facility] Heart Clinic of patient preference in 7-10 days. Call the clinic if: You have increased pain or a large or growing hard lump around the site. The site is red, swollen, hot or tender. Blood or fluid is draining from the site. You have chills or a fever greater than 101 F (38 C). You have hives, a rash or unusual itching. Any questions or concerns. [facility]: [phone] [facility] (7 days a week) Or you may contact your provider via My Chart documented in this encounter Medications at Time of Discharge acetaminophen (TYLENOL) 500 MG tablet Take 1,000 mg by mouth every 8 hours as needed for mild pain albuterol (PROAIR HFA/PROVENTIL HFA/VENTOLIN HFA) 108 (90 Base) MCG/ACT inhaler Inhale 2 puffs into the lungs Every 4-6 hours PRN shortness of breath amoxicillin (AMOXIL) 500 MG capsule Take 2,000 mg by mouth as needed (prior to dental procedures) atorvastatin (LIPITOR) 80 MG tablet Take 80 mg by mouth At Bedtime 2 bumetanide (BUMEX) 1 MG tablet Take 3 mg by mouth daily CALCIUM-VITAMIN D PO Take 1 tablet by mouth daily diltiazem ER COATED BEADS (CARDIZEM CD/CARTIA XT) 240 MG 24 hr capsule Take 240 mg by mouth daily EMPAGLIFLOZIN PO Take 1 tablet by mouth daily Dose unknown gabapentin (NEURONTIN) 300 MG capsule Take 600 mg by mouth 2 times daily insulin glargine (LANTUS PEN) 100 UNIT/ML penIndications:Charanjit g term (current) use of insulin (H) Inject 25 Units Subcutaneous daily 15 mL 3 metoprolol succinate ER (TOPROL XL) 200 MG 24 hr tablet Take 200 mg by mouth daily nystatin (MYCOSTATIN) 427073 UNIT/GM external cream Apply topically 2 times daily as needed potassium chloride ER (KLOR-CON M) 20 MEQ CR tablet Take 40 mEq by mouth 2 times daily semaglutide (OZEMPIC) 2 MG/1.5ML SOPN pen Inject subcutaneously every 7 days Inject 0.25 mg subcutaneous weekly x 28 days then inject 0.5 mg subcutaneous weekly. warfarin ANTICOAGULANT (COUMADIN) 2.5 MG tablet Take 1.5 tabs (3.75 mg) on Mondays and Fridays. Take 1 tab (2.5 mg) the rest of the week. QHS documented as of this encounter Progress Notes * Naheed Sosa RN - 11/01/2024 10:38 AM CDT Care Suites Discharge Nursing Note Patient Information Name: Sydnie Parkinson Age: [age] year old Discharge Education: Discharge instructions reviewed: Yes Additional education/resources provided: None Patient/patient off premise service representative verbalizes understanding: Yes Patient discharging on new medications: No Medication education completed: N/A Discharge Plans: Discharge location: home Discharge ride contacted: Yes Approximate discharge time: 1035 Discharge Criteria: Discharge criteria met and vital signs stable: Yes Patient Belongs: Patient belongings returned to patient: Yes Naheed Sosa RN * Naheed Sosa RN - 11/01/2024 9:33 AM CDT Care Suites Post Procedure Note Patient Information Name: Sydnie Parkinson Age: [age] year old Post Procedure Time patient returned to Care Suites: 0910 Concerns/abnormal assessment: None If abnormal assessment, provider notified: N/A Plan/Other: proceed with recovery and discharge as planned Naheed Sosa RN * Naheed Sosa RN - 11/01/2024 7:21 AM CDT Care Suites Admission Nursing Note Patient Information Name: Sydnie Parkinson Age: [age] year old Reason for admission: right heart cath Care Suites arrival time: 629 Visitor Information Name: Liz Patient Admission/Assessment Pre-procedure assessment complete: Yes If abnormal assessment/labs, provider notified: N/A- awaiting labs NPO: Yes Medications held per instructions/orders: Yes Consent: will obtain with provider If applicable, test status: deferred Patient oriented to room: Yes Education/questions answered: Yes Plan/other: proceed with procedure as planned Discharge Planning Discharge name/phone number: minh Hill in waiting room Overnight post sedation caregiver: Liz Discharge location: home Naheed Sosa RN documented in this encounter Miscellaneous Notes * Pre-Procedure - Sheila Lara MD - 11/01/2024 8:41 AM CDT GENERAL PRE-PROCEDURE: Procedure: RHC Written consent obtained?: Yes Risks and benefits: Risks, benefits and alternatives were discussed Consent given by: Patient Patient states understanding of procedure being performed: Yes Patient's understanding of procedure matches consent: Yes Procedure consent matches procedure scheduled: Yes Expected level of sedation: Moderate Appropriately NPO: Yes ASA Class: 2 Mallampati : Grade 3- soft palate visible, posterior pharyngeal wall not visible Lungs: Lungs clear with good breath sounds bilaterally Heart: A-fib and systolic murmur History & Physical reviewed: History and physical reviewed and no updates needed Statement of review: I have reviewed the lab findings, diagnostic data, medications, and the plan for sedation Risks and benefits of the RHC procedure were discussed with the patient in detail. Patient understands the overall risks of the procedure and wishes to proceed. documented in this encounter Plan of Treatment Not on file documented as of this encounter Procedures Procedure Name Priority Date/Time Associated Diagnosis Comments CV RIGHT HEART CATH MEASUREMENTS RECORDED Routine 11/01/2024 9:01 AM CDT Cardiac pacemaker in situ Atrial fibrillation with RVR (H) Congestive heart failure, unspecified HF chronicity, unspecified heart failure type (H) ISTAT GASES LACTATE VENOUS POCT Routine 11/01/2024 8:56 AM CDT EKG 12-LEAD, TRACING ONLY Routine 11/01/2024 7:11 AM CDT INR STAT 11/01/2024 7:01 AM CDT PARTIAL THROMBOPLASTIN TIME STAT 11/01/2024 7:01 AM CDT BASIC METABOLIC PANEL STAT 11/01/2024 7:01 AM CDT CBC WITH PLATELETS STAT 11/01/2024 7: 01 AM CDT documented in this encounter Results * CV RIGHT HEART CATH MEASUREMENTS RECORDED (11/01/2024 9:01 AM CDT) Anatomical Region Laterality Modality Radio Fluoroscop y Narrative 11/01/2024 9:52 AM CDT Right sided filling pressures are normal. Left sided filling pressures are normal. Mild elevated pulmonary hypertension. Normal cardiac output level. Right heart hemodynamics as follows RA pressure 3 mmHg RV pressure 48/8 mmHg PA pressures 49/22/34 mmHg Wedge pressure 11 mmHg Cardiac index 2.2 L/min/m Blood pressure 120/80 mmHg Aortic saturation is 91% Study Details Severe tricuspid regurgitation and pulmonary hypertension Right Heart Pressures Right sided filling pressures are normal. Left sided filling pressures are normal. Mild elevated pulmonary hypertension. Normal cardiac output level. Plan Normal filling pressures. Continue current diuretic regimen. Can resume warfarin tonight. Recommend repeating transthoracic echocardiography for reevaluation of tricuspid insufficiency. If still moderate to severe TR, recommend transesophageal echocardiography for further evaluation. Comments/Patient Narrative This is a 73-year-old female who was recently referred to me for a new HF consultation. She has the following pertinent medical issues 1. Permanent atrial fibrillation on anticoagulation with warfarin 2. Heart failure with preserved ejection fraction and severe right-sided heart failure 3. 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 Hypertension morbid obesity hyperlipidemia 5. Obstructive sleep apnea 6. Ongoing history of smoking at least 1 pack a day 7. Chronic kidney disease stage III 8. Severe pulmonary hypertension with moderate to severe tricuspid regurgitation from above. Patient was recently at [facility]. Underwent nearly 40 pounds of diuresis. Weight is 330 pounds. Echocardiography in July at outside institution showed severe tricuspid regurgitation and RV dilatation with at least moderate pulmonary hypertension. Patient is here for right heart catheterization for further evaluation and management of pulmonary hypertension and tricuspid regurgitation. Cath Procedure details After informed consent was obtained, the patient was draped and prepared in the usual sterile fashion. Using ultrasound guidance and a micropuncture needle technique, access was gained to the right IJ wire position was confirmed under fluoroscopy, then a short sheath was inserted into the right internal jugular vein. Through that a [place] catheter was inserted into the right heart and serial measurements were obtained in the pulmonary capillary wedge, pulmonary artery, right ventricle and right atrial positions. Pulmonary arterial saturations were obtained for [place] cardiac index calculation. [place] was pulled out and manual compression was done for hemostasis at the access site. No immediate complications. The attending interventional radiology technologist was present and supervised all critical aspects the procedure. Recommendations Follow-up in heart failure clinic. us Sheila Lara MD CV CARDIAC CATH ORDERABLES Final Result * (ABNORMAL) iStat Gases (lactate) venous, POCT (11/01/2024 8:56 AM CDT) [facility] Lactic Acid POCT 0.9 0.7 - 2.0 mmol/L 11/01/2024 8:59 AM CDT LABORATORY POC Comment:Chart Critical resul t. Doctor notified Bicarbonate Venous POCT 28 21 - 28 mmol/L 11/01/2024 8:59 AM CDT LABORATORY POC Comment:Chart Critical resul t. Doctor notified O2 Sat, Venous POCT 54(L) 70 - 75 % 11/01/2024 8:59 AM CDT LABORATORY POC Comment:Chart Critical resul t. Doctor notified pCO2 Venous POCT 50 40 - 50 mm Hg 11/01/2024 8:59 AM CDT LABORATORY POC Comment:Chart Critical resul t. Doctor notified pH Venous POCT 7.35 7.32 - 7.43 11/01/2024 8:59 AM CDT LABORATORY POC Comment:Chart Critical resul t. Doctor notified pO2 Venous POCT 31 25 - 47 mm Hg 11/01/2024 8:59 AM CDT LABORATORY POC Comment:Chart Critical resul t. Doctor notified Base Excess/Deficit (+/-) POCT 1.0 -3.0 - 3.0 mmol/L 11/01/2024 8:59 AM CDT LABORATORY POC Comment:Chart Critical resul t. Doctor notified Blood, venous BLOOD SPECIMEN / Unknown 11/01/2024 8:56 AM CDT 11/01/2024 8:59 AM CDT us Sheila Lara MD LAB - BEAKER POCT Final Result LABORATORY POC [facility] [address] 1[address] floor, [address] [place] [address], [facility] * EKG 12-lead, tracing only (11/01/2024 7:11 AM CDT) Systolic Blood Pressure mmHg RADIOLOGY RESULTS Diastolic Blood Pressure mmHg RADIOLOGY RESULTS Ventricular Rate 91 BPM RAD IOLOGY RESULTS Atrial Rate 227 BPM RADIOLOG Y RESULTS SC Interval ms RADIOLOG Y RESULTS QRS Duration 78 ms RADIOLO GY RESULTS QT 390 ms RADIOLOGY RESULTS QTc 479 ms RADIOLOGY RESULTS P [place] degrees RADIOLOGY RESULTS R AXIS 220 degrees RADIOLOGY RESULTS T [place] 50 degrees RADIOLOGY RESULTS Interpretation ECG Atrial fibrillation Right superior axis deviation Low voltage QRS Cannot rule out Anteroseptal infarct Abnormal ECG When compared with ECG of 10-Feb-2024 14:17, There have been no significant changes Confirmed by MD IDA, DAYNE ([id number]) on 11/01/2024 3:13:32 PM RADIOLOGY RESULTS 11/01/2024 7:11 AM CDT 11/01/2024 3:13 PM CDT Sheila Lara MD ECG ORDERABLES Edited Result - Final Performing Organization Address City/[facility]/ZIP Co de Phone Number RADIOLOGY RESULTS * Partial thromboplastin time (11/01/2024 7:01 AM CDT) aPTT 28 22 - 38 Seconds 11/01/2024 8:12 AM CDT LABORATORY Blood BLOOD SPECIMEN / Unknown Venipuncture / Unknown 11/01/2024 7:01 AM CDT 11/01/2024 7:13 AM CDT Sheila Lara MD LAB - BLOOD ORDERABLES Final Res ult LABORATORY [facility] [address], [address] [place] [address], [place] [phone] * INR (11/01/2024 7:01 AM CDT) Pathologist [facility] INR 1.15 0.85 - 1.15 11/01/2024 7:42 AM CDT LABORATORY PT 14.5 11.8 - 14.8 Seconds 11/01/2024 7:42 AM CDT LABORATORY Blood BLOOD SPECIMEN / Unknown Venipuncture / Unknown 11/01/2024 7:01 AM CDT 11/01/2024 7:13 AM CDT us Sheila Lara MD LAB - BLOOD ORDERABLES Final Res ult LABORATORY [facility] [address] 1[address], [address] [place] [address], [facility] [phone] * (ABNORMAL) CBC with platelets (11/01/2024 7:01 AM CDT) [facility] WBC Count 8.7 4.0 - 11.0 10e3/uL 11/01/2024 7:18 AM CDT LABORATORY RBC Count 5.20 3.80 - 5.20 10e6/uL 11/01/2024 7:18 AM CDT LABORATORY Hemoglobin 16.4(H) 11.7 - 15.7 g/dL 11/01/2024 7:18 AM CDT LABORATORY Hematocrit 48.4(H) 35.0 - 47.0 % 11/01/2024 7:18 AM CDT LABORATORY MCV 93 78 - 100 fL 11/01/2024 7:18 AM CDT LABORATORY MCH 31.5 26.5 - 33.0 pg 11/01/2024 7:18 AM CDT LABORATORY MCHC 33.9 31.5 - 36.5 g/dL 11/01/2024 7:18 AM CDT LABORATORY RDW 15.8(H) 10.0 - 15.0 % 11/01/2024 7:18 AM CDT LABORATORY Platelet Count 209 150 - 450 10e3/uL 11/01/2024 7:18 AM CDT LABORATORY Blood BLOOD SPECIMEN / Unknown Venipuncture / Unknown 11/01/2024 7:01 AM CDT 11/01/2024 7:13 AM CDT us Sheila Lara MD LAB - BLOOD ORDERABLES Final Res ult LABORATORY [facility] [address], [address] [place] [address], [facility] [phone] * (ABNORMAL) Basic metabolic panel (11/01/2024 7:01 AM CDT) Sodium 139 135 - 145 mmol/L 11/01/2024 7:44 AM [facility] LAB[facility] Potassium 3.9 3.4 - 5.3 mmol/L 11/01/2024 7:44 AM [facility] Chloride 95(L) 98 - 107 mmol/L 11/01/2024 7:44 AM [facility] Carbon Dioxide (CO2) 30(H) 22 - 29 mmol/L 11/01/2024 7:44 AM [facility] Anion Gap 14 7 - 15 mmol/L 11/01/2024 7:44 AM [facility] Urea Nitrogen 33.6(H) 8.0 - 23.0 mg/dL 11/01/2024 7:44 AM T LABORATORY Creatinine 1.44(H) 0.51 - 0.95 mg/dL 11/01/2024 7:44 AM T LABORATORY GFR Estimate 38(L) >60 mL/min/1.7 3m2 11/01/2024 7:44 AM [facility] Comment:eGFR calculated usin 2020 CKD-EPI equation. Calcium 8.7(L) 8.8 - 10.4 mg/dL 11/01/2024 7:44 AM T LABORATORY Glucose 239(H) 70 - 99 mg/dL 11/01/2024 7:44 AM [facility] Blood BLOOD SPECIMEN / Unknown Venipuncture / Unknown 11/01/2024 7:01 AM CDT 11/01/2024 7:13 AM CDT us Sheila Lara MD LAB - BLOOD ORDERABLES Final Res ult [facility] [address], [address] [place] [address], [place] [phone] documented in this encounter Visit Diagnoses Diagnosis Acute decompensated heart failure (H)- Primary Cardiac pacemaker in situ Atrial fibrillation with RVR (H) Atrial fibrillation Congestive heart failure, unspecified HF chronicity, unspecified heart failure type (H) Cardiac pacemaker in situ Atrial fibrillation with RVR (H) Atrial fibrillation Congestive heart failure, unspecified HF chronicity, unspecified heart failure type (H) Cardiac pacemaker in situ Atrial fibrillation with RVR (H) Atrial fibrillation Congestive heart failure, unspecified HF chronicity, unspecified heart failure type (H) documented in this encounter Admitting Diagnoses Diagnosis Cardiac pacemaker in situ Atrial fibrillation with RVR (H) Atrial fibrillation Congestive heart failure, unspecified HF chronicity, unspecified heart failure type (H) documented in this encounter Administered Medications Inactive Administered Medications - up to 3 most recent administrations Medication Order MAR Action Action Date Dose Rate Site acetaminophen (TYLENOL) tablet 650 mg 650 mg, Oral, EVERY 4 HOURS PRN, mild pain, headaches, Starting on Thu11/01/24 at 0915, May give first dose 4 hours after last scheduled dose of acetaminophen. Maximum acetaminophen dose from all sources = 75 mg/kg/day not to exceed 4 grams/day.Indications:Acute decompensated heart failure (H) ondansetron (ZOFRAN ODT) ODT tab 4 mg 4 mg, Oral, EVERY 6 HOURS PRN, nausea/vomiting - 1st line, Starting on Thu11/01/24 at 0900, With dry hands, peel back foil backing and gently remove tablet. Do not push oral disintegrating tablet through foil backing. Administer immediately on tongue and oral disintegrating tablet dissolves in seconds, then swallow with saliva. Liquid not required.Indications:Acute decompensated heart failure (H) ondansetron (ZOFRAN) injection 4 mg 4 mg, Intravenous, EVERY 6 HOURS PRN, nausea/vomiting - 1st line, Administer over 2-5 Minutes, Starting on Thu11/01/24 at 0900Indications:Acute decompensated heart failure (H) sodium chloride 0.9 % infusion at 10 mL/hr, Intravenous, CONTINUOUS, 10 mL/hr IV for 2 hours prior to cardiac labor relations officer procedure, then titrate per procedure MD to run throughout the procedure. Start at 0700 for inpatients. IF PATIENT IS RECEIVING RENAL DIALYSIS, RN to reduce rate of 0.9 % sodium chloride IV solution to 10 mL /hour (TKO) IV infusion to prevent fluid overload., Cardiac Pre-procedure, Starting on Thu11/01/24 at 0700, Until Thu11/01/24 at 0909Indications:Congestive heart failure, unspecified HF chronicity, unspecified heart failure type (H) $New Bag 11/01/2024 7:05 AM CDT 10 mL/hr sodium chloride 0.9 % infusion at 30 mL/hr, Intravenous, CONTINUOUS, Starting on Thu11/01/24 at 0930, Until Thu11/01/24 at 1239Indications:Acute decompensated heart failure (H) documented in this encounter Active and Recently Administered Medications Times are shown in CDT. Continuous Medication Order 10/30/2024 10/31/2024 11/01/2024 sodium chloride 0.9 % infusion (CANCELED) at 10 mL/hr, Intravenous, CONTINUOUS, 10 mL/hr IV for 2 hours prior to cardiac labor relations officer procedure, then titrate per procedure MD to run throughout the procedure. Start at 0700 for inpatients. IF PATIENT IS RECEIVING RENAL DIALYSIS, RN to reduce rate of 0.9 % sodium chloride IV solution to 10 mL /hour (TKO) IV infusion to prevent fluid overload., Cardiac Pre-procedure, Starting on Thu11/01/24 at 0700, Until Thu11/01/24 at 0909 0705 ($New Bag - Pro vider: Naheed Sosa RN) sodium chloride 0.9 % infusion at 30 mL/hr, Intravenous, CONTINUOUS, Starting on Thu11/01/24 at 0930, Until Thu11/01/24 at 1239 0930 (Canceled Entry - Provider: Orders Generic Provider - Comment: Automatically canceled at discontinue of medication order) PRN Medication Order 10/30/2024 10/31/2024 11/01/2024 acetaminophen (TYLENOL) tablet 650 mg 650 mg, Oral, EVERY 4 HOURS PRN, mild pain, headaches, Starting on Thu11/01/24 at 0915, May give first dose 4 hours after last scheduled dose of acetaminophen. Maximum acetaminophen dose from all sources = 75 mg/kg/day not to exceed 4 grams/day. lidocaine 1 % (CANCELED) ONCE PRN, Starting on Thu11/01/24 at 0847, Cardiac Intra-procedure 0847 ($Given - Provi kaylee: Sheila Lara MD)0847 (Canceled Entry - Provider: Sheila Lara MD - Comment: Right) ondansetron (ZOFRAN ODT) ODT tab 4 mg(Linked Group 1) 4 mg, Oral, EVERY 6 HOURS PRN, nausea/vomiting - 1st line, Starting on Thu11/01/24 at 0900, With dry hands, peel back foil backing and gently remove tablet. Do not push oral disintegrating tablet through foil backing. Administer immediately on tongue and oral disintegrating tablet dissolves in seconds, then swallow with saliva. Liquid not required. ondansetron (ZOFRAN) injection 4 mg(Linked Group 1) 4 mg, Intravenous, EVERY 6 HOURS PRN, nausea/vomiting - 1st line, Administer over 2-5 Minutes, Starting on Thu11/01/24 at 0900 Linked Groups Order Group 1: ondansetron (ZOFRAN ODT) ODT tab 4 mgJump to med 4 mg, Oral, EVERY 6 HOURS PRN, nausea/vomiting - 1st line, Starting on Thu11/01/24 at 0900, With dry hands, peel back foil backing and gently remove tablet. Do not push oral disintegrating tablet through foil backing. Administer immediately on tongue and oral disintegrating tablet dissolves in seconds, then swallow with saliva. Liquid not required. Or ondansetron (ZOFRAN) injection 4 mgJump to med 4 mg, Intravenous, EVERY 6 HOURS PRN, nausea/vomiting - 1st line, Administer over 2-5 Minutes, Starting on Thu11/01/24 at 0900 documented in this encounter Care Teams Precision Layout Worker Relationship Specialty Start Date End Date Amarilis Rincon MD [address] [place] [address] PCP - General Family Practice 02/11/24 Lexie Bose APRN ENGINE MECHANIC [address] [place] [id number] Nurse Practitioner Cardiovascular Disease 07/01/22 Viviane Pacheco APRN ENGINE MECHANIC [address] [id number] Nurse Practitioner Cardiovascular Disease 07/16/22 Genevieve Puentes NP [address] [id number] Nurse Practitioner Cardiology 07/25/22 Tin Mckenzie MD [address] [place] [id number] Cardiovascular Disease 11/04/22 Mauricio New MD [address] [place] [id number] Assigned Surgical Provider 10/19/24 Sheila Lara MD [address] [place] [address] Assigned Heart and Vascular Provider 10/19/24 documented as of this encounter
--- OUTSIDE RECORDS SUMMARY | 2024-11-01 08:30 | XMS_ITS | Encounter Summary ---
Author Organization [place] Address [address] [place] [address] Care Team Providers Care Envelope Folding Machine Adjuster Name Role Phone Lexie Bose FACILITIES SUPERVISOR CAREER TECHNICAL EDUCATION INSTRUCTOR Unavailable [phone] Viviane Pacheco FACILITIES SUPERVISOR CAREER TECHNICAL EDUCATION INSTRUCTOR Unavailable [phone] Genevieve Puentes NP Unavailable [phone] Tin Mckenzie MD Unavailable [phone] Amarilis Rincon MD Primary Care Provider + [phone] Mauricio New MD Unavailable [phone] Sheila Lara MD Unavailable Reason for Visit * Auth/Cert Specialty Diagnoses / Procedures Referred By Otoniel t Referred To Contact Cardiology Diagnoses Cardiac pacemaker in situ Atrial fibrillation with RVR (H) Congestive heart failure, unspecified HF chronicity, unspecified heart failure type (H) PH Procedures [facility] RIGHT HEART CATH O2 SATURATION & CARDIAC OUTPUT [place] RIGHT HEART CATH O2 SATURATION & CARDIAC OUTPUT Right Heart Catheterization [facility] [address] [phone] Phone: tel: Referral ID Status Reason Start Date Expiration Date Visits Re quested Visits Authorized [id number] 1 1 Encounter Details Date Type Department Care Team (Late st Contact Info) Description 11/01/2024 8:30 AM CDT - 11/01/2024 9:30 AM CDT Surgery [facility] [place] [facility] [address] [phone] Sheila Lara MD [address] [place] [address] Right Heart Catheterization Surgery Details Date/Time Status Location OR Service Patient Class Case Class Case Type Trauma Case? 11/01/2024 8:30 AM Posted HEART CARDIAC CUSTOMER SERVICE SALES CONSULTANT Client Support Professional 3 Cardiology Outpatient Panel 1 Procedure LRB [...] stops, sit still for 2 hours. Call [facility] Clinic as soon as you can Call 911 right away if you have heavy bleeding or bleeding that does not stop. Medicines: If you are taking an antiplatelet medication such as Plavix, Brilinta or Effient, do not stop taking it until you talk to your software tools build engineer. If you are on Metformin (Glucophage), do [...] them. Follow Up Appointments: Follow up with [facility] Heart Nurse Practitioner at [facility] Heart Clinic of patient preference [...] itching. Any questions or concerns. [facility] Heart at [place]: [phone] [facility] (7 days a week) Or [...] 200 mg by mouth daily nystatin (MYCOSTATIN) [id number] UNIT/GM external cream Apply topically 2 times [...] reviewed: Yes Additional education/resources provided: None Patient/patient sales development representative verbalizes understanding: Yes Patient discharging on [...] regurgitation from above. Patient was recently at [facility]. Underwent nearly 40 pounds of diuresis. [...] right internal jugular vein. Through that a [place]-Jeana catheter was inserted into the right heart and serial measurements were obtained in the pulmonary capillary wedge, pulmonary artery, right ventricle and right atrial positions. Pulmonary arterial saturations were obtained for Napoleon cardiac index calculation. U[place] was pulled out and manual compression was done for hemostasis at the access site. No immediate complications. The attending marine equipment preservation inspector was present and supervised all critical aspects the procedure. Recommendations Follow-up in heart failure clinic. Sheila Lara MD CV CARDIAC CATH ORDERABLES Final Result * (ABNORMAL) iStat Gases (lactate) venous, POCT (11/01/2024 8:56 AM CDT) [facility] Lactic Acid POCT 0.9 0.7 - [...] - BEAKER POCT Final Result LABORATORY POC [facility] Acute Care Lab [address] 1st floor, Room [address] [place] [address] * EKG 12-lead, tracing only (11/01/2024 7:11 AM CDT) Systolic Blood Pressure mmHg RADIOLOGY RESULTS Diastolic Blood Pressure mmHg RADIOLOGY RESULTS Ventricular Rate 91 BPM RAD IOLOGY RESULTS Atrial Rate 227 BPM RADIOLOG Y RESULTS [place] Interval ms RADIOLOG Y RESULTS QRS Duration 78 ms RADIOLO GY RESULTS QT 390 ms RADIOLOGY RESULTS QTc 479 ms RADIOLOGY RESULTS P [place] degrees RADIOLOGY RESULTS R AXIS 220 degrees RADIOLOGY RESULTS T [place] 50 degrees RADIOLOGY RESULTS Interpretation ECG Atrial [...] - BLOOD ORDERABLES Final Res ult LABORATORY [facility] Lab [address] 1[address] floor, Room [address] [place] [address], [facility] [phone] * INR (11/01/2024 7:01 AM CDT) Pathologist [facility] INR 1.15 0.85 - 1.15 11/01/2024 7:42 AM CDT LABORATORY PT 14.5 11.8 - 14.8 Seconds 11/01/2024 7:42 AM CDT LABORATORY Blood BLOOD SPECIMEN / Unknown Venipuncture / Unknown 11/01/2024 7:01 AM CDT 11/01/2024 7:13 AM CDT Sheila Lara MD LAB - BLOOD ORDERABLES Final Res ult LABORATORY [facility] Lab [address] floor, [address] [place] [address], [facility] [phone] * (ABNORMAL) CBC with platelets (11/01/2024 7:01 AM CDT) [facility] WBC Count 8.7 4.0 - 11.0 [...] 10.0 - 15.0 % 11/01/2024 7:18 AM [facility] Platelet Count 209 150 - 450 10e3/uL 11/01/2024 7:18 AM [facility] Blood BLOOD SPECIMEN / Unknown Venipuncture / Unknown 11/01/2024 7:01 AM CDT 11/01/2024 7:13 AM T us Sheila Lara MD LAB - BLOOD ORDERABLES Final Res ult LABORATORY [facility] Acute Care Lab [address] floor, [address] [place] [address], [facility] [phone] * (ABNORMAL) Basic metabolic panel (11/01/2024 7:01 AM CD) Sodium 139 135 - 145 mmol/L 11/01/2024 7:44 AM [facility] Potassium 3.9 3.4 - 5.3 mmol/L 11/01/2024 7:44 AM [facility] Chloride 95(L) 98 - 107 mmol/L 11/01/2024 7:44 AM [facility] Carbon Dioxide (CO2) 30(H) 22 - 29 mmol/L 11/01/2024 7:44 AM [facility] Anion Gap 14 7 - 15 mmol/L 11/01/2024 7:44 AM [facility] Urea Nitrogen 33.6(H) 8.0 - 23.0 mg/dL 11/01/2024 7:44 AM [facility] Creatinine 1.44(H) 0.51 - 0.95 mg/dL 11/01/2024 7:44 AM [facility] GFR Estimate 38(L) >60 mL/min/1.7 3m2 11/01/2024 7:44 AM [facility] Comment:eGFR calculated usin g 2020 CKD-EPI equation. Calcium 8.7(L) 8.8 - 10.4 mg/dL 11/01/2024 7:44 AM [facility] Glucose 239(H) 70 - 99 mg/dL 11/01/2024 7:44 AM CDT LABORATORY Blood BLOOD SPECIMEN / Unknown Venipuncture / Unknown 11/01/2024 7:01 AM CDT 11/01/2024 7:13 AM CDT us Sheila Lara MD LAB - BLOOD ORDERABLES Final Res ult LABORATORY [facility] Acute Care Lab [address] floor, [address] [place] [address], [facility] [phone] documented in this encounter Visit Diagnoses Diagnosis [...] for 2 hours prior to cardiac laboratory analyst procedure, then titrate per procedure MD to [...] for 2 hours prior to cardiac laboratory analyst procedure, then titrate per procedure MD to [...] 0900 documented in this encounter Care Teams Envelope Folding Machine Adjuster Relationship Specialty Start Date End Date Amarilis Rincon MD [address] [place] [address] PCP - General Family Practice 02/11/24 Lexie Bose, FACILITIES SUPERVISOR CAREER TECHNICAL EDUCATION INSTRUCTOR [address] [place] [address] Nurse Practitioner Cardiovascular Disease 07/01/22 Viviane Pacheco, FACILITIES SUPERVISOR CAREER TECHNICAL EDUCATION INSTRUCTOR [address] [place] [id number] Nurse Practitioner Cardiovascular Disease 07/16/22 Genevieve Puentes NP [address] [place] [address] Nurse Practitioner Cardiology 07/25/22 Tin Mckenzie MD [address] [place] [address] Cardiovascular Disease 11/04/22 Mauricio New MD [address] [place] [address] Assigned Surgical Provider 10/19/24 Sheila Lara MD [address] [place] [address] Assigned Heart and Vascular Provider 10/19/24 documented as of this encounter
--- OUTSIDE RECORDS SUMMARY | 2024-12-16 11:06 | XMS_ITS | Encounter Summary ---
Author Organization [facility] Address [address] [place] [id number] Care Team Providers Care Garage Construction Equipment Mechanic Name Role Phone Lexie Bose FARMWORKER [employer] FARM PRINTING EQUIPMENT MECHANIC APPRENTICE Unavailable [phone] Viviane Pacheco FARMWORKER [employer]UC[employer] FARM PRINTING EQUIPMENT MECHANIC APPRENTICE Unavailable [phone] Genevieve uPentes NP Unavailable [phone] Tin Mckenzie MD Unavailable [phone] Amarilis Rincon MD Primary Care Provider + [phone] Mauricio New MD Unavailable [phone] Sheila Lara MD Unavailable Reason for Visit * Reason Onset Date Comments Appointment 08/18/2024 Re-schedule 08/18 appt. Encounter Details Date Type Department Care Team (Late st Contact Info) Description 08/18/2024 [facility] [address] [place] [address] Jair Craft MD Appointment (Re-schedule [...] you! [facility] Date of Service: ERIZER documented in this encounter Plan of Treatment Not on file documented as of this encounter Visit Diagnoses Not on filedocumented in this encounter Care Teams Garage Construction Equipment Mechanic Relationship Specialty Start Date End Date Amarilis Rincon MD [address] [place], [place] [id number] PCP - General Family Practice 02/11/24 Lexie Bose APRN PRINTING EQUIPMENT MECHANIC APPRENTICE [address] [place] [address] Nurse Practitioner Cardiovascular Disease 07/01/22 Viviane Pacheco APRN PRINTING EQUIPMENT MECHANIC APPRENTICE [address] [id number] Nurse Practitioner Cardiovascular Disease 07/16/22 Genevieve Puentes NP [address] [id number] Nurse Practitioner Cardiology 07/25/22 Tin Mckenzie MD [address] [place] [place] [id number] Cardiovascular Disease 11/04/22 Mauricio New MD [address] [place] [address] Assigned Surgical Provider 10/19/24 Sheila Lara MD [address] [facility] [address] [place] [address] Assigned Heart and Vascular Provider 10/19/24 documented as of this encounter
--- OUTSIDE RECORDS SUMMARY | 2024-12-16 11:06 | XMS_ITS | Clinical Summary ---
Author Organization [employer] [facility] Address [address] [place] [address] Care Team Providers Care Garment Parts Cutter Hand Name Role Phone Shanae Horn CMA Unavailable [phone] Amarilis Rincon MD Unavailable [phone] Jacquie Haley NP Primary Care Provid er Helena Dickens PharmD Unavailable [phone] Sanjay Harrington Unavailable Genevieve Peña Unavailable [phone] Johanne Mix RN Unavailable [facility], [facility] Unavailable [phone] Jacquie Haley NP Unavailable + [phone] Nazanin NorrisSW Unavailable [phone] Allergies No known active allergies Medications [...] weekly for 4 weeks. 09/22/19 25 Active [employer] René 3 Plus Sensor for continuous blood glucose monitor (CGM) To be used to read blood sugars, follow enterprise integration developer directions. 10/13/19 25 Active potassium chloride 20 [...] Waller Relationship: Sister and brother in law Phone--[phone] Secondary Health Care Agent: Bharat Root Relationship: brother and sister in law Conservator [...] only (NO IV/IM) Manually signed by Sydnie Root & Viv Cary RN on 08/27/2021. Assessment & Plan (10/01/2009 3:59 PM CDT): Advance Care Planning: Basic Interview Session Advance Care Planning discussion completed with Sydnie Salcidoeileensonia and her mother Winsome Root on 10/01/2009 at [facility]. Winsome is not Sydnie Montoya's health care agent but was present. The health care agents are nephew, Man Waller; brother Marcus Root and sister Agustina Arias. Patient and family provided with: Advance Care Planning Discussion Guide Health Care Directive Goals and Values: Patient/family identified factors that may influence treatment preferences: Sydnie's rene/buddhism is important to her. She is a member of [employer] in [place]. Understanding of illness patient identifies being diabetic, we briefly discussed dialysis and Sydnie would elect dialysis. Present/past experiences related to illness or father of heart attack-was brought to hospital in morning and by evening had worsened and -their dinking machine operator was with him at time of and [...] secondary health care agent is brother, Marcus Root and sister, Agustina Arias. Health Care Directive completed and scanned into medical record. Recommendations/Plan: Sydnie was encouraged to continue advance care planning discussions with her health care agents. Syndie is to review her Health Care Directive [...] Aftercare following surgery; R NORI 03/2016 [facility] 04/21/2016 01/29/2021 Diabetic neuropathy 04/21/2016 02/01/20 21 [...] Encounters Date Type Department Care Team Description 12/15/2024 Telephone [facility] [address] [place] [address] Jacquie Haley NP Lab 12/15/2024 Lab Requisition [address] [address] Layton Don MD 12/14/2024 Patient Outreach [facility] Management - Advanced Care Team [address] [place] [address] Nazanin Norris [facility] 12/12/2024 Patient Outreach [facility] Care Management - Advanced Care Team [address] [place] [address] Nazanin Norris CARE CLINICIAN [facility] ([facility] update) 12/11/2024 Orders Only [facility] Scanner 1 scan: (1-Ord) [facility], XR CHEST 2V, 12/11/2024 12/09/2024 11:00 AM CDT Ancillary Procedure [facility] [address] [place] [address] 12/09/[address] [address] Jacquie Haley NP Error-please disregard (opened in error) 12/09/2024 Home Care Visit [address] [address] Franchesca Jensen RN CARE COORDINATION 12/08/2024 Patient Outreach [facility] Care Management - Advanced Care Team [address] [place] [address] Nazanin Norris LICSW [facility] ([facility] from home to hospital) 12/08/2024 Orders Only [facility] Scanner 1 scan: (1-Ord) [facility], XR CHEST 1V PORTABLE, 12/08/2024 12/08/2024 Home Care Visit [address] [address] Alissa Nicholson, RN CARE COORDINATION 12/08/[address] [address] Jacquie Haley NP Anticoagulation (Update ) 12/07/2024 Patient Outreach [facility] Care Management - Advanced Care Team [address] [place] [address] Johanne Mix RN [facility] ([facility] (hospital --> 12/07 Home)) 12/05/2024 Home Care Visit [address] [address] Alissa Nicholson, ARIELLA SN - OASIS TRANSFER 12/05/2024 Patient Outreach [facility] Care Management - Advanced Care Team [address] [place] [address] Nazanin Norris LICSW [facility] ([facility] from home to [facility]) 12/05/[address] [address] Jacquie Haley NP Anticoagulation (OPA - DOXYCYCLINE HYCLATE 100 MG CAPSULE ) 12/04/2024 Orders Only [facility] Scanner 1 scan: (1-Ord) [facility], XR CHEST 1V PORTABLE, 12/04/2024 12/04/2024 Nurse Triage [address] [address] Jacquie Haley NP Complex Care Management 12/01/2024 4:00 PM CDT Home Care Visit [address] [address] Alissa Nichoslon RN SN - HOME VISIT 12/01/2024 Anticoagulation (warfarin) [address] [address] Clinic, [facility] Inr Anticoagulation ([facility]) 11/29/2024 1:30 PM CDT Home Care Visit [address] [address] Alissa Call, OTR OT - EDEMA/LYMPHEDEMA INITIAL ASSESSMENT 11/25/2024 5:00 PM CDT Home Care Visit [address] [address] Alissa Call, OTR LYMPHEDEMA CHART CONSULT 11/25/[address] [address] Renetta Grande, intermission coordinator ([facility]) 11/24/2024 10:30 AM CDT Home Care Visit [address] [address] Renetta Grande, RN SN - HOME VISIT 11/24/2024 Nurse Triage [address] [address] Jacquie Haley NP Medication Management 11/22/2024 12:30 PM CDT Home Visit [address] [address] Amarilis Rincon MD [facility] 11/19/[address] [address] Jacquie Haley NP Refill Request 11/18/2024 2:30 PM CDT Home Care Visit [address] [address] Alissa Nicholson, ARIELLA SN - PRN HOME VISIT 11/18/2024 Orders Only [facility] [address] [place] [address] Jacquie Haley NP <No scans attached> 11/18/2024 Travel 11/17/2024 10:30 AM CDT Home Care Visit [address] [address] Alissa Nicholson, ARIELLA SN - HOME VISIT 11/17/2024 Anticoagulation (warfarin) [facility] [address] [place] [address] Clinic, [facility] Anticoagulation ([facility]) 11/16/2024 Nurse Triage [address] [address] Jacquie Haley NP Weight (Gain ) 11/10/2024 2:00 PM CDT Home Care Visit [address] [address] Carleen Hernandez RN SN - HOME VISIT 11/10/2024 Anticoagulation (warfarin) [facility] [address] [place] [address] Clinic, [facility] Anticoagulation (Home Care) 11/09/2024 Nurse Triage [address] [address] Jacquie Haley NP Home Care (diarrhea ) 11/08/2024 3:00 PM CDT Home Care Visit [address] [address] Alissa Nicholson, RN SN - HOME VISIT 11/05/2024 Nurse Triage [address] [address] Jacquie Haley NP Leg Swelling 11/03/2024 4:00 PM CDT Home Care Visit [address] [address] Alissa Nicholson, ARIELLA SN - HOME VISIT 10/27/2024 12:30 PM CDT Home Care Visit [address] [address] Jeaneth Simon RN SN - OASIS RECERTIFICATION 10/27/2024 Plan of Care Documentation [address] [address] 10/27/2024 Orders Only [facility] [address] [place] [address] Jacquie Haley NP Lab 10/26/[address] [address] Sarah Llmaas RN Home Care (labs) 10/26/2024 Nurse Triage [address] [address] Jacquie Haley NP Medication Management 10/25/2024 10:30 AM CDT Home Visit [address] [address] Jacquie Haley NP [facility] 10/24/2024 Travel 10/19/2024 12:00 PM CDT Home Care Visit [address] [address] Alissa Nicholson, ARIELLA SN - HOME VISIT 10/19/2024 Anticoagulation (warfarin) [address] [address] Clinic, [facility] Antico[facility] ([facility]- Home Care) 10/12/2024 3:00 PM CDT Home Care Visit [address] [address] Alissa Nicholson, ARIELLA SN - HOME VISIT 10/12/2024 1:00 PM CDT Pharmacist Medication Management [facility] [address] [place] [address] Helena Dickens, PharmD Pharmacist Medication Management (Follow up) 10/12/[address] [address] Jacquie Haley NP Refill Request (Bumetanide ) 10/12/2024 Nurse Triage [address] [address] Jacquie Haley NP Need Meds (bumetanide) 10/07/2024 Anticoagulation (warfarin) [address] [address] [facility] Inr Anticoagulation (Chart update) 10/05/2024 2:30 PM CDT Home Care Visit [address] [address] Alissa Nicholson RN SN - HOME VISIT 10/05/[address] [address] Jacquie Haley NP Anticoagulation (10/31/2024 Right Heart Cath) 10/05/2024 Anticoagulation (warfarin) [address] [address] [facility] In[facility] Anticoagulation ([facility]) 09/27/2024 3:00 PM CDT Home Care Visit [address] [address] Zoe Lugo, ARIELLA SN - HOME VISIT 09/27/[address] [address] Zoe Lugo, intermission coordinator (Weight/Edema) 09/27/2024 Anticoagulation (warfarin) [facility] [address] [place] [address] Clinic, [facility] (Home Care/[facility]) 09/24/2024 Orders Only [address] [address] Jaleesa Gonzalez NP <No scans attached> 09/24/2024 Nurse Triage [address] [address] Jacquie Haley NP Abnormal Lab Results 09/22/2024 11:00 AM CDT Home Care Visit [address] [address] Alissa Nicholson, ARIELLA SN - HOME VISIT 09/22/2024 Patient Outreach [facility] Care Management - Advanced Care Team [address] [place] [address] Johanne Mix RN [facility] ([facility] RNCC annual assessment) 09/22/2024 Travel 09/22/2024 Orders Only [facility] [address] [place] [address] Amarilis Rincon MD Lab 09/22/2024 Orders Only [address] [address] Amarilis Rincon MD <No scans attached> 09/21/2024 2:30 PM CDT Pharmacist Medication Management [facility] [address] [place] [address] Helena Dickens, LigiaD Pharmacist Medication Management (Annual 2024 CMR-home) 09/20/2024 3:00 PM CDT Home Care Visit [address] [address] Alissa Nicholson, RN SN - HOME VISIT 09/20/2024 Travel 09/19/2024 Orders Only [address] [address] Jacquie Haley NP <No scans attached> 09/16/2024 3:00 PM CDT Home Care Visit [facility] [address] [place] [address] Alissa Nicholson RN SN - HOME VISIT 09/16/2024 12:30 PM CDT Home Visit [facility] [address] [place] [address] Jacquie Haley NP [facility] 09/16/2024 Orders Only [facility] [address] [place] [address] Jacquie Haley NP <No scans attached> from Last 3 Months Immunizations Immunization Administration [...] Date Smoking Tobacco: Every Day Cigarettes 1 55.5 Started: 06/29/1969 Smokeless Tobacco: Never Tobacco Cessation:Ready [...] file Legal Sex Female 5:[address]ICIAN Gender Identity Not on file Sexual Orientation [...] Care Team (Late st Contact Info) Description 12/21/2024 3:20 PM CDT Orders Only [facility] [address] [place] [address] 3, 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 Maintenance Due Date Last Done Comments [...] Additional history exists Tetanus booster 01/30/2030 01/31/2020, 09/0 02/2009, 07/04/2003 Hepatitis C screening for age [...] Procedure Name Priority Date/Time Associated Diagnosis Comments PROTIME-INR Routine 12/15/2024 10:39 AM CDT Unspecified atrial fibrillation (HC) SCAN-RADIOLOGY REPORT 12/11/2024 12:00 AM CDT ECHO TTE COMPLETE W CONTRAST Routine 12/09/2024 12:24 PM CDT Atrial fibrillation with RVR (HC) COPD, severe (HC) Pulmonary HTN (HC) (aortic stenosis) MR (mitral regurgitation) TR (tricuspid regurgitation) SCAN-RADIOLOGY REPORT 12/08/2024 12:00 AM CDT SCAN-RADIOLOGY REPORT 12/04/2024 12:00 AM CDT INR,POCT [...] Relevant to Health Maintenance Results * (ABNORMAL) PROTIME-INR (12/15/2024 10:39 AM CDT) INR 5.3(H) <1.3 12/15/2024 11:09 AM CDT [facility] PROTIME 62.0(H) 10.6 - 12.4 sec 12/15/2024 11:09 AM CDT [facility] Blood BLOOD SPECIMEN / Unknown Venipuncture / Unknown 12/15/2024 10:39 AM CDT 12/15/2024 10:39 AM CDT Narrative [facility] - 12/15/2024 11:09 AM CDT Therapeutic Range 2.0-3.0 for most anticoagulated patients [...] seconds if the patient is on UFH. us Layton Don MD HEMATOLOGY Final Result [facility] [address] [place] [address], [place] [phone] * SCAN-RADIOLOGY REPORT (12/11/2024 12:00 AM CDT) Only the most recent of3 resultswithin the time period is included. Anatomical Region Laterality Modality Other us Scanner OTHER Final Result * ECHO TTE COMPLETE W CONTRAST (12/09/2024 12:24 PM CDT) AORTIC VALVE MEAN PG 10 mmHg EJECTION FRACTION 65 % PEAK TR VELOCITY 3.0 m/s LVEDD 4.9 cm Anatomical Region Laterality Modality Ultrasound 12/09/2024 10:5 8 AM CDT Narrative 12/09/2024 12:33 PM CDT ECHOCARDIOGRAM SYDNIE ROOT : 1950 74 years Study Date: 12/09/2024 10:58:35 AM Gender: F BP: 139/90 mmHg Height: 168.00 cm BSA: 2.48 m Weight: 150.00 kg Tech: PHANI Referring MD: IRA DIANA Site: [facility] Reading Location: MOBILE IP Patient Location: Inpatient. Procedure: 2D w/ Contrast, Color Doppler and Spectral Doppler. Indication for study: Atrial fibrillation with RVR (HC) COPD, severe (HC) Pulmonary HTN (HC) (aortic stenosis) MR (mitral regurgitation) TR (tricuspid regurgitation) Cardiac Rhythm: Atrial fibrillation.Study quality: Technically limited. Imaging limitations: This study was subject to imaging limitations due to lying in a supine position and body habitus. Final Impressions: 1. Technically limited exam. Tachycardia 2. Normal left ventricular size, normal wall thickness, normal global systolic function, calculated EF of 65 %. 3. Severe biatrial enlargement 4. Right ventricular cavity size is mildly enlarged, global systolic RV function is normal. 5. The aortic valve is sclerotic, no stenosis and no regurgitation. 6. Tricuspid valve is normal, moderate tricuspid regurgitation. 7. Dilated ascending aorta, diameter of 4.2 cm (upper limit of normal for age, sex, and BSA is 4.0 cm*), Height Index 2.50. 8. The inferior vena cava is dilated, respiratory size variation less than 50%. 9. Echo contrast was administered to enhance visualization of all left ventricular segments. Chamber Sizes and Function Normal left ventricular size, normal wall thickness, normal global systolic function, calculated EF of 65 %. No resting regional wall motion abnormality visualized. Left atrial size is severely enlarged. Right ventricular cavity size is mildly enlarged, global systolic RV function is normal. The right atrium is severely enlarged. The pulmonary artery is not well visualized. The sinus of Valsalva is normal sized. The ascending aorta is dilated. Valves, RV Pressures and Diastolic Function The aortic valve is sclerotic, no stenosis and no regurgitation. The mitral valve is normal in structure, mild mitral regurgitation. Indeterminate pattern of LV diastolic filling. The tricuspid valve is normal in structure, moderate tricuspid regurgitation. The tricuspid regurgitant velocity is 3.0 m/s, the estimated right ventricular systolic pressure is 35 mmHg plus right atrial pressure. The pulmonic valve is normal. Trace pulmonary regurgitation. Masses, Effusion, Shunts There is no pericardial effusion. The inferior vena cava is dilated, respiratory size variation less than 50%. Interatrial septum is not well visualized. MEASUREMENTS AND CALCULATIONS 2-D Measurements and LV Function: LVID (d) 4.9 cm Planimetered EF 65 % IVS (d) 1.1 cm LVOT diameter 2.3 cm Ao Sinus 3.6 cm HR 111 bpm Ao Sinus ULN 3.8 cm * LA Vol index 54 ml/m2 Asc Ao 4.2 cm RV Basal Diam 4.4 cm Asc Ao ULN 4.0 cm * * Input BSA outside of range, reported values correspond to BSA = 1.9 Diastology: Mitral E Peak 1.0 m/s DT 163 msec Aortic Valve: Vmax 2.0 m/s RAHEL (V) 2.52 cm VTI 0.36 m RAHEL (I) 2.22 cm LVOT V max 1.2 m/s Max PG 16 mmHg LVOT VTI 0.19 m Mean PG 10 mmHg SV 80 ml Dim Index 0.54 SV index 32 ml/m CO 8.9 l/min CI 3.6 l/min/m Mitral Valve: MVA 4.7 cm MV P 1/2 47 msec MV Mean G 4 mmHg MV VTI 0.20 m Tricuspid Valve and estimated PA pressures: TR Vmax 3.0 m/s TR maxG 35 mmHg Pulmonic Valve: PV Vmax 1.0 m/s Contrast documentation: 2cc ml diluted Definity, lot #[id number], [facility] [id number] was administered peripherally to enhance visualization of all left ventricular segments. . This study was interpreted by an [facility] accredited facility. CC: HIM (med records) [facility], Med/Surg - IP [facility]. Final Procedure Note Brenna Griffin MD - 12/09/2024 ECHOCARDIOGRAM SYDNIE ROOT : 1950 74 years Study Date: 12/09/2024 10:58:35 AM Gender: F BP: 139/90 mmHg Height: 168.00 cm BSA: 2.48 m Weight: 150.00 kg Tech: PHANI Referring MD: IRA DIANA Site: [facility] Reading Location: [facility] Patient Location: Inpatient. Procedure: 2D w/ Contrast, Color Doppler and Spectral Doppler. Indication for study: Atrial fibrillation with RVR (HC) COPD, severe (HC) Pulmonary HTN (HC) (aortic stenosis) MR (mitral regurgitation) TR (tricuspid regurgitation) Cardiac Rhythm: Atrial fibrillation.Study quality: Technically limited. Imaging limitations: This study was subject to imaging limitations due tolying in a supine position and body habitus. Final Impressions: 1. Technically limited exam. Tachycardia 2. Normal left ventricular size, normal wall thickness, normal globalsystolic function, calculated EF of 65 %. 3. Severe biatrial enlargement 4. Right ventricular cavity size is mildly enlarged, global systolic RVfunction is normal. 5. The aortic valve is sclerotic, no stenosis and no regurgitation. 6. Tricuspid valve is normal, moderate tricuspid regurgitation. 7. Dilated ascending aorta, diameter of 4.2 cm (upper limit of normal forage, sex, and BSA is 4.0 cm*), Height Index 2.50. 8. The inferior vena cava is dilated, respiratory size variation lessthan 50%. 9. Echo contrast was administered to enhance visualization of all leftventricular segments. Chamber Sizes and Function Normal left ventricular size, normal wall thickness, normal globalsystolic function, calculated EF of 65 %. No resting regional wall motionabnormality visualized. Left atrial size is severely enlarged. Rightventricular cavity size is mildly enlarged, global systolic RV function isnormal. The right atrium is severely enlarged. The pulmonary artery is notwell visualized. The sinus of Valsalva is normal sized. The ascendingaorta is dilated. Valves, RV Pressures and Diastolic Function The aortic valve is sclerotic, no stenosis and no regurgitation. Themitral valve is normal in structure, mild mitral regurgitation.Indeterminate pattern of LV diastolic filling. The tricuspid valve isnormal in structure, moderate tricuspid regurgitation. The tricuspidregurgitant velocity is 3.0 m/s, the estimated right ventricular systolicpressure is 35 mmHg plus right atrial pressure. The pulmonic valve isnormal. Trace pulmonary regurgitation. Masses, Effusion, Shunts There is no pericardial effusion. The inferior vena cava is dilated,respiratory size variation less than 50%. Interatrial septum is not wellvisualized. MEASUREMENTS AND CALCULATIONS 2-D Measurements and LV Function: LVID (d) 4.9 cm Planimetered EF 65% IVS (d) 1.1 cm LVOT diameter2.3 cm Ao Sinus 3.6 cm HR111 bpm Ao Sinus ULN 3.8 cm * LA Vol index 54ml/m2 Asc Ao 4.2 cm RV Basal Diam4.4 cm Asc Ao ULN 4.0 cm * * Input BSA outside of range, reported values correspond to BSA = 1.9 Diastology: Mitral E Peak 1.0 m/s DT 163 msec Aortic Valve: Vmax 2.0 m/s RAHEL (V) 2.52 cm VTI 0.36 m RAHEL (I) 2.22 cm LVOT V max 1.2 m/s Max PG 16 mmHg LVOT VTI 0.19 m Mean PG 10 mmHg SV 80 ml Dim Index 0.54 SV index 32 ml/m CO 8.9 l/min CI 3.6 l/min/m Mitral Valve: MVA 4.7 cm MV P 1/2 47 msec MV Mean G 4 mmHg MV VTI 0.20 m Tricuspid Valve and estimated PA pressures: TR Vmax 3.0 m/s TR maxG 35 mmHg Pulmonic Valve: PV Vmax 1.0 m/s Contrast documentation: 2cc ml diluted Definity, lot #[id number], [facility]#[id number] was administered peripherally to enhance visualization of allleft ventricular segments. . This study was interpreted by an [facility] accredited facility. CC: HIM (med records) [facility], Med/Surg - IP [facility]. Final Ira Diana MD ECHO ORD Final Resu lt * (ABNORMAL) INR,POCT (12/01/2024) Only the most recent of6 resultswithin the time period is included. INR 2.6(EXTERNA L) 0.8 - 1.1 [facility] Blood BLOOD SPECIMEN / Unknown 12/01/2024 Jacquie Haley [facility] Z[facility] l Result [address] [address] * (ABNORMAL) BASIC METABOLIC PANEL (11/18/2024 4:12 PM CDT) Only the most recent of3 resultswithin the time period is included. GLUCOSE 209(H) 65 - 99 mg/dL [facility] Valderrama Comment: Fasting reference interval For someone without [...] CDT 11/19/2024 3:45 AM CDT Jacquie Haley [facility] Result [facility] [address] [place] [address], [employer] [facility] [address] * (ABNORMAL) URINALYSIS MICROSCOPIC (09/22/2024 12:06 PM CDT) RBC 0-2 0-2, None Seen /HPF 09/22/2024 12:39 PM CDT [facility] WBC >100(A) 0-2, 3-5, None Seen /HPF 09/22/2024 12:39 PM CDT [facility] BACTERIA Many(A) None Seen, Rare, Few Bacteria/ HPF 09/22/2024 12:39 PM CDT [facility] EPITHELIAL CELLS Moderate(A) None Seen, Few Epi/HPF 09/22/2024 12:39 PM CDT [facility] Mucus Present 09/22/2024 12:39 PM CDT [facility] WHITE CELL CLUMPS Present(A) (none) 09/22/2024 12:39 PM CDT [facility] Urine URINE SPECIMEN / Unknown Non-Blood / Unknown 09/22/2024 12:06 PM CDT 09/22/2024 12:06 PM CDT Narrative [facility] - 09/22/2024 12:39 PM CDT There are numerous leukocytes (packed WBC) which may affect the accuracy of results. Interpret with caution. us Amarilis Rincon MD URINE Final Resu lt [facility] [address] [place] [address] * (ABNORMAL) URINE CULTURE (09/22/2024 12:06 PM CDT) CULTURE RESULT(A) 09/24/2024 2:48 PM CDT [facility] CULTURE >100,000 CFU/mL Proteus mirabilis 09/24/2024 2:48 PM CDT [facility] CULTURE 10,000-50,000 CFU/mL Multiple organisms probable contaminants 09/24/2024 2:48 PM CDT [facility] Urine URINE SPECIMEN / Unknown [...] Amarilis Rincon MD MICROBIOLOGY Final Resu lt [facility] [address] [place] [address], [place] * (ABNORMAL) UA W/ SEDIMENT EXAM REFLEXED PER CRITERIA (09/22/2024 12:06 PM CDT) COLOR Yellow Yellow Color 09/22/2024 12:17 PM CDT [facility] CLARITY Cloudy(A) Clear Clarity 09/22/2024 12:17 PM CDT [facility] SPECIFIC GRAVITY,URINE 1.015 1.010, 1.015, 1.020, 1.025 09/22/2024 12:17 PM T [facility] PH,URINE 6.0 6.0, 7.0, 8.0, 5.5, 6.5, 7.5, 8.5 09/22/2024 12:17 PM CDT [facility] UROBILINOGEN, QUALITATIVE Normal Normal EU/dl 09/22/2024 12:17 PM CDT [facility] PROTEIN, URINE Negative Negative mg/dL 09/22/2024 12:17 PM CDT [facility] GLUCOSE, URINE >=1000(A) Negative mg/dL 09/22/2024 12:17 PM CDT [facility] KETONES,URINE Negative Negative mg/dL 09/22/2024 12:17 PM CDT [facility] BILIRUBIN,URI NE Negative Negative 09/22/2024 12:17 PM CDT [facility] OCCULT BLOOD,URINE Trace(A) Negative 09/22/2024 12:17 PM CDT [facility] NITRITE Negative Negative 09/22/2024 12:17 PM CDT [facility] LEUKOCYTE ESTERASE Negative Negative 09/22/2024 12:17 PM CDT [facility] Urine URINE SPECIMEN / Unknown Non-Blood / Unknown 09/22/2024 12:06 PM CDT 09/22/2024 12:06 PM CDT us Amarilis Rincon MD URINE Final Resu lt [facility] [address] [place] [address] * (ABNORMAL) LIPID PANEL (09/08/2023 12:02 PM CDT) CHOLESTEROL,TOTAL 119 100 - 199 mg/dL 09/08/2023 2:12 PM CDT [facility] Comment: Cholesterol, Total Reference Ranges Desirable <200 mg/dL Borderline 200-239 mg/dL High >=240 mg/dL TRIGLYCERIDES 189(H) <150 mg/dL 09/08/2023 2:12 PM CDT [facility] HDL CHOLESTEROL 32(L) >40 mg/dL 2:12 PM CDT [facility] NON-HDL CHOLESTEROL 87 <145 mg/dl 09/08/2023 2:12 PM CDT [facility] CHOL/HDL RATIO 3.72 <4.50 09/08/2023 2:12 PM CDT [facility] LDL CHOLESTEROL 49 <=130 mg/dL 09/08/2023 2:12 PM CDT [facility] VLDL CHOLESTEROL 38(H) <=30 mg/dL 09/08/2023 2:12 PM CDT [facility] PROVIDER ORDERED STATUS RANDOM 09/08/2023 2:12 PM CDT [facility] Blood BLOOD SPECIMEN / Unknown Venipuncture / Unknown 09/08/2023 12:02 PM CDT 09/08/2023 1:17 PM CDT us Amarilis Rincon MD CHEMISTRY Final Resu lt [facility] [address] [place] [address], [place] * CT CHEST PE STUDY (01/25/2019 4:39 PM CDT) Anatomical Region Laterality Modality CHEST, THORAX, HEART Computed To mography 01/25/2019 4:39 PM CDT Narrative 01/25/2019 4:46 PM CDT EXAM: CT CHEST PE STUDY LOCATION: [facility] DATE/TIME: 01/25/2019 4:39 PM INDICATION: Shortness Of Breath. Elevated d-dimer. COMPARISON: None. TECHNIQUE: Helical acquisition through the chest was performed during the arterial phase of contrast enhancement using IV contrast. 2D and 3D reconstructions were performed by the principal technologist. Dose reduction techniques were used. IV [...] 01/25/2019 EXAM: CT CHEST PE STUDY LOCATION: [facility] DATE/TIME: 01/25/2019 4:39 PM INDICATION: Shortness Of Breath. Elevated d-dimer. COMPARISON: None. TECHNIQUE: Helical acquisition through the chest was performed duringthe arterial phase of contrast enhancement using IV contrast. 2D and 3D reconstructions were performed by the principal technologist. Dose reductiontechniques were used. IV CONTRAST: [...] 11:51 AM CDT) ANTI HCV Non-reacti ve [facility] Blood specimen (specimen) BLOOD SPECIMEN / Unknown 10/06/2007 11:51 AM CDT 10/06/2007 11:50 AM CDT us Cherie Nagel MD SEND OUTS Final Result [facility] INTERNAL ZIP [address] [place] [address] from Last 3 Months or Most Recently Relevant to Health Maintenance Insurance [facility] MEDICARE ADVANTAGE MR HC UCARE MEDICARE PDGM UCARE MEDICARE ADVANTAGE MR Advance Directives Documents on File Type Date Recorded Patient Brace End Mainspring Former Expl anation POLST 07/20/2024 Healthcare Directive 08/04/2022 [...] 8:41 PM 02/02/2019 3:21 PM Care Teams Garment Parts Cutter Hand Relationship Specialty Start Date End Date Jacquie Haley NP [address] [place] [address] [phone] PCP - General Nurse Practitioner - Adult 06/03/23 Shanae Horn [address] [phone] [facility] 08/20/22 Amarilis Rincon MD [address] [place] [address] [phone] [facility] Family Practice 02/11/23 Helena Dickens, LigiaD [address] [place], [place] [phone] Pharmacist Medication Management Pharmacology 06/18/23 Sanjay Harrington [facility] [address] [place], [place] [address] Cardiology Cardiovascular Disease 08/20/23 Genevieve Peña [address] [place] [address] [facility] Care Guide 10/18/23 Johanne Mix, ARIELLA [address] [place] [address] [facility] Registered Nurse 10/18/23 [facility] [address] [place] [address] 08/29/24 Jacquie Haley NP [address] [place] [address] [facility] Nurse Practitioner - Adult 10/19/24 Nazanin Norris, [place] [address]25 [place] [address] [facility] Bloom Conveyor Operator 11/16/24
--- OUTSIDE RECORDS SUMMARY | 2024-12-16 11:06 | XMS_ITS | Clinical Summary ---
Author Organization [place] Address [address] [place] [address] Care Team Providers Care Machinery Mechanic Name Role Phone Lexie Bose HISTORIC SITE ADMINISTRATOR STRINGING MACHINE TENDER Unavailable [phone] Viviane Pacheco HISTORIC SITE ADMINISTRATOR STRINGING MACHINE TENDER Unavailable [phone] Genevieve Puentes NP Unavailable [phone] Tin Mckenzie MD Unavailable [phone] Amarilis Rincon MD Primary Care Provider + [phone] Mauricio New MD Unavailable [phone] Sheila Lara MD Unavailable Allergies No known [...] mg by mouth daily Active nystatin (MYCOSTATIN) [id number] UNIT/GM external cream Apply topically 2 times [...] Type Department Care Team Description 12/01/2024 Telephone [facility] [address] [facility] [address] [place] [phone] Shiela Lara MD 11/09/2024 Telephone [facility] [address] [facility] [address] [place] [phone] None Appointment (Cancel 11/09 Hospital F/U) 11/02/2024 Telephone [facility] [address] [facility] [address] [place] [phone] Candice Sanchez, RN Clinic Care Coordination - Post Hospital (Post discharge phone call) 11/01/2024 8:30 AM CDT - 11/01/2024 9:30 AM CDT Surgery [facility] [address] [place] [phone] Sheila Lara MD Right Heart Catheterization 11/01/2024 5:53 AM CDT - 11/01/2024 10:35 AM CDT Hospital Encounter [facility] [address] [phone] Sheila Lara MD Acute decompensated heart failure (H) (Primary Dx); Cardiac pacemaker in situ; Atrial fibrillation with RVR (H); Congestive heart failure, unspecified HF chronicity, unspecified heart failure type (H) Discharge Disposition: Home or Self Care 10/31/2024 Telephone [facility] [address] [place] [phone] Gudelia Mancera, RN Pt. Information/instructi on 10/26/2024 Care Coordination [facility] [address] [facility] [address] [place] [phone] Renée Bobby, ARIELLA Pt. Information/instructi on (RHC prep) 10/07/2024 Telephone [place] [address] [facility] [address] [place] [phone] Sheila Lara MD Call Back (Medication Question ) 10/03/2024 1:00 PM CDT Office Visit [facility] Surgery [facility] [address] [place] [phone] Mauricio New MD Hip mass, left; Hip mass, right 10/03/2024 11:15 AM CDT Office Visit [facility] [address] [facility] [address] [place] [phone] Sanjay Harrington MD Vakil, Kairav, MD Cardiac [...] this topic Medical Devices Implanted Type Area Mat Cutter Device Identifier Shelf Expiration Date Model / Serial / Lot Lead Ingevity+ Af Is1 7842 59cm - [id number] Implanted:Qty: 1 on 06/23/2022 at [facility] Leads [employer] 05/04/2024 7842 / [id number] / [id number] Pacemaker Accolade Sr Mri - [id number] Implanted:Qty: 1 on 06/23/2022 at [facility] Pacemaker [employer] 10/17/2023 L310 / [id number] / [id number] Procedures Procedure Name Priority Date/Time Associated Diagnosis [...] Patient was recently at [facility]. Underwent nearly 40 pounds of diuresis. [...] right internal jugular vein. Through that a Amity-Jeana catheter was inserted into the right heart and serial measurements were obtained in the pulmonary capillary wedge, pulmonary artery, right ventricle and right atrial positions. Pulmonary arterial saturations were obtained for Napoleon cardiac index calculation. Amity was pulled out and manual compression was done for hemostasis at the access site. No immediate complications. The attending starch cooker was present and supervised all critical aspects [...] 8:59 AM CDT us Sheila Lara MD [facility] POCT Final Result LABORATORY POC [facility] Acute Care Lab [address] 1st floor, Room [address] [place] [address] * EKG 12-lead, tracing only (11/01/2024 7:11 AM CDT) Systolic Blood Pressure mmHg RADIOLOGY RESULTS Diastolic Blood Pressure mmHg RADIOLOGY RESULTS Ventricular Rate 91 BPM RAD IOLOGY RESULTS Atrial Rate 227 BPM RADIOLOG Y RESULTS MI Interval ms RADIOLOG Y RESULTS QRS Duration 78 ms RADIOLO GY RESULTS QT 390 ms RADIOLOGY RESULTS QTc 479 ms RADIOLOGY RESULTS P [place] degrees RADIOLOGY RESULTS R AXIS 220 degrees RADIOLOGY RESULTS T [place] 50 degrees RADIOLOGY RESULTS Interpretation ECG Atrial [...] ORDERABLES Final Res ult Performing Organization Address City/[facility]/ZIP Co de Phone Number LABORATORY [facility] [address] 1st floor, Room [address] [place] [address], [facility] [phone] * Partial thromboplastin time (11/01/2024 7:01 AM CDT) aPTT 28 22 - 38 Seconds 11/01/2024 8:12 AM CDT LABORATORY Blood BLOOD SPECIMEN / Unknown Venipuncture / Unknown 11/01/2024 7:01 AM CDT 11/01/2024 7:13 AM CDT us Sheila Lara MD LAB - BLOOD ORDERABLES Final Res ult Performing Organization Address City/[facility]/ZIP Co de Phone Number LABORATORY [facility] [address] 1[address] floor, [address] [place] [address], [place] [phone] * (ABNORMAL) Basic metabolic panel (11/01/2024 7:01 AM CDT) Pathologist [facility] Sodium 139 135 - 145 mmol/L 11/01/2024 [...] - BLOOD ORDERABLES Final Res ult LABORATORY [facility] Acute Care Lab [address] 1[address] floor, [address] [place] [address], [facility] [phone] * (ABNORMAL) CBC with platelets (11/01/2024 7:01 AM CDT) [facility] WBC Count 8.7 4.0 - 11.0 10e3/uL [...] - BLOOD ORDERABLES Final Res ult LABORATORY [facility] Acute Care Lab [address] 1[address] floor, Room [address] [place] [address], [facility] [phone] * EKG 12-lead complete w/read - Clinics [...] mg/dL 02/10/2024 3:54 PM CDT LABORATORY Specific Axis Urine 1.024 1.003 - 1.035 02/10/2024 3:54 [...] - URINE ORDERABLES Zulma albarado Result LABORATORY [facility] Acute Care Lab [address] 1[address] floor, [address] [place] [address], [facility] [phone] * TSH with free T4 reflex (02/10/2024 3:21 PM CDT) TSH 1.10 0.30 - 4.20 uIU/mL 02/10/2024 4:11 PM CDT LABORATORY Blood BLOOD SPECIMEN / Unknown Venipuncture / Unknown 02/10/2024 3:21 PM CDT 02/10/2024 3:29 PM CDT Sera Whtie MD LAB - BLOOD ORDERABLES Zulma albarado Result LABORATORY [facility] Acute [facility] Lab [address] 1[address] floor, [address] [place] [address], [facility] [phone] * (ABNORMAL) Hemoglobin A1c (02/12/2023 8:34 AM CDT) Hemoglobin A1C 6.2(H) <5.7 % 02/12/2023 9:11 AM CDT LABORATORY Comment: Normal <5.7% Prediabetes 5.7-6.4% Diabetes 6.5% or higher Note: Adopted from ADA consensus guidelines. Blood STRUCTURE OF LEFT HAND / Unknown Venipuncture / Unknown 02/12/2023 8:34 AM CDT 02/12/2023 8:43 AM CDT Corona Irizarry MD, MD LAB - BLOOD ORDERABLES Geovany al Result LABORATORY [facility] Acute Care Lab [address] Lab (1st floor, no room number) [place] [address], [place] [phone] from Last 3 Months or Most Recently Relevant to Health Maintenance Insurance [facility] MEDICARE [facility] MEDICARE Advance Directives For more information, please contact: [phone] * Full Code (Latest Code Status on [...] patie nt/ legal decision maker Care Teams Machinery Mechanic Relationship Specialty Start Date End Date Amarilis Rincon MD [address] [place], [place] [phone] PCP - General Family Practice 02/11/24 Lexie Bose APRN STRINGING MACHINE TENDER [address] [place] [address] Nurse Practitioner Cardiovascular Disease 07/01/22 Viviane Pacheco APRN STRINGING MACHINE TENDER [address] [place] 589415 Nurse Practitioner Cardiovascular Disease 07/16/22 Genevieve Puentes NP [address] [phone] Nurse Practitioner Cardiology 07/25/22 Tin Mckenzie MD [address] [place] [id number] Cardiovascular Disease 11/04/22 Mauricio New MD [address] [place] [address] Assigned Surgical Provider 10/19/24 Sheila Lara MD [address] [place] 034945 Assigned Heart and Vascular Provider 10/19/24
--- OUTSIDE RECORDS SUMMARY | 2024-12-16 11:06 | XMS_ITS | Encounter Summary ---
Author Organization [place] Address [facility] [place] [address] Care Team Providers Care Loan Review Manager Name Role Phone Lexie Bose MEDICAL FRONT DESK COORDINATOR CHIEF OF HOSPITAL MEDICINE Unavailable [phone] Viviane Pacheco APRN CHIEF OF HOSPITAL MEDICINE Unavailable [phone] Genevieve Puentes NP Unavailable [phone] Tin Mckenzie MD Unavailable [phone] Amarilis Rincon MD Primary Care Provider + [phone] Mauricio New MD Unavailable [phone] Sheila Lara MD Unavailable Reason for Visit * Reason Onset Date Comments Clinic Care Coordination - Post Hospital 025 Post discharge phone call Encounter Details Date Type Department Care Team (Late st Contact Info) Description 11/02/2024 Telephone [facility] Heart [address] [place] [phone] Candice Sanchez, RN Clinic Care Coordination - [...] 12:52 PM CDT Patient was admitted to [facility] on 11/01/24 for OP right heart catheterization [...] at 1035 with CHRISTY Afsaneh Hessat our [place] Office. Patient advised to call clinic with any cardiac related questions or concerns prior to this christy't. Patient verbalized understanding and agreed with plan. Blanca Sanchez RN. documented in this encounter Plan of Treatment Not on file documented as of this encounter Visit Diagnoses Not on filedocumented in this encounter Care Teams Loan Review Manager Relationship Specialty Start Date End Date Amarilis Rincon MD [address] [place] [address] PCP - General Family Practice 02/11/24 Lexie Bose APRN CHIEF OF HOSPITAL MEDICINE [address] [place] [address] Nurse Practitioner Cardiovascular Disease 07/01/22 Vivaine Pacheco APRN CHIEF OF HOSPITAL MEDICINE [address] [place] 702175 Nurse Practitioner Cardiovascular Disease 07/16/22 Genevieve Puentes NP [address] [place] 213365 Nurse Practitioner Cardiology 07/25/22 Tin Mckenzie MD [address] [place] 528375 Cardiovascular Disease 11/04/22 Mauricio New MD [address] [facility] [place] 54[address] Assigned Surgical Provider 10/19/24 Sheila Lara MD [address] [place] 820435 Assigned Heart and Vascular Provider 10/19/24 documented as of this encounter
--- OUTSIDE RECORDS SUMMARY | 2024-12-16 11:06 | XMS_ITS | Encounter Summary ---
Author Organization [place] Address [address] [place] [address]. [place] [address] Care Team Providers Care Bed Rubber Name Role Phone Lexie Bose ROUTE SALES DRIVER CRADLE PLACER Unavailable [phone] Viviane Pacheco APRN CRADLE PLACER Unavailable [phone] Genevieve Puentes NP Unavailable [phone] Tin Mckenzie MD Unavailable [phone] Amarilis Rincon MD Primary Care Provider + [phone] Mauricio New MD Unavailable [phone] Sheila Lara MD Unavailable Encounter Details Date Type Department Care Team (Late st Contact Info) Description 12/01/2024 [facility] [place] [address] [facility] [address] [place] [address] Sheila Lara MD [address] [facility] [address] [place] [address] Social History Tobacco Use Types [...] up appt Additional Notes: Specialty phone number: [phone] documented in this encounter Plan of Treatment Not on file documented as of this encounter Visit Diagnoses Not on filedocumented in this encounter Care Teams Bed Rubber Relationship Specialty Start Date End Date Amarilis Rincon MD [address] [place] [address] PCP - General Family Practice 02/11/24 Lexie Bose APRN CRADLE PLACER [address] [place] [address] Nurse Practitioner Cardiovascular Disease 07/01/22 Viviane Pacheco APRN CRADLE PLACER [address] 084625 Nurse Practitioner Cardiovascular Disease 07/16/22 Genevieve Puentes NP [address] [place] [address] Nurse Practitioner Cardiology 07/25/22 Tin Mckenzie MD [address] [place] [address] Cardiovascular Disease 11/04/22 Mauricio New MD [address] [place] [address] Assigned Surgical Provider 10/19/24 Sheila Lara MD [address] [place] [address] Assigned Heart and Vascular Provider 10/19/24 documented as of this encounter
--- OUTSIDE RECORDS SUMMARY | 2024-12-16 11:06 | XMS_ITS | Encounter Summary ---
Author Organization [place] Address [address] [place] [address] Care Team Providers Care Manager Ccu Name Role Phone Lexie Bose SHIFT LAB TECHNICIAN LINEN ROOM CUSTODIAN Unavailable [phone] Viviane Pacheco APRN LINEN ROOM CUSTODIAN Unavailable [phone] Genevieve Puentes NP Unavailable [phone] Tin Mckenzie MD Unavailable [phone] Amarilis Rincon MD Primary Care Provider + [phone] Mauricio New MD Unavailable [phone] Sheila Lara MD Unavailable Reason for Visit * Reason Onset Date Comments Appointment 11/09/2024 Cancel 11/09 Hosp ital F/U Encounter Details Date Type Department Care Team (Late st Contact Info) Description 11/09/[address] [place] [address] None Appointment (Cancel 11/09 Hospital [...] on filedocumented in this encounter Care Teams Manager Ccu Relationship Specialty Start Date End Date Amarilis Rincon MD [address] [place] [address] PCP - General Family Practice 02/11/24 Lexie Bose APRN LINEN ROOM CUSTODIAN [address] [place] [address] Nurse Practitioner Cardiovascular Disease 07/01/22 Viviane Pacheco APRN LINEN ROOM CUSTODIAN [address] [address] Nurse Practitioner Cardiovascular Disease 07/16/22 Genevieve Puentes NP [address] [place] [address] Nurse Practitioner Cardiology 07/25/22 Tin Mckenzie MD [address] [place] [address] Cardiovascular Disease 11/04/22 Mauricio New MD [address] [place] [address] Assigned Surgical Provider 10/19/24 Sheila Lara MD [address] [place] [address] Assigned Heart and Vascular Provider 10/19/24 documented as of this encounter
== END 2024-12-14 11:46 | disposition home or self-care (01) ==
PROVIDERS: PCP Family Medicine; Visit Provider Emergency Medicine
DX: R53.1 Weakness (principal); Z99.3 Dependence on wheelchair
CPT/HCPCS: A0425; A0428